=== PATIENT | female | born 1955 | race Caucasian/White ===

== ENCOUNTER 2018-10-16 11:48 | Emergency (ER) | payer MEDICAID, SELFPAY ==
--- NOTE | 2018-10-16 12:42 | ER ---
Nurse's Notes [facility] Name: Rhea Carballo Age: 63 yrs Sex: Female : 1955 Arrival Date: 10/16/2018 Time: 11:53 Bed 17 Private MD: None, None Diagnosis: Bronchiectasis, uncomplicated Presentation: 10/16 12:13 Presenting complaint: Patient states: cough and congestion that began 2.5 months ago. ss Pt states, " I just need an antibiotic or something to kick this.". Transition of care: patient was not received from another setting of care. Resp Distress? No respiratory distress is noted at this time. Onset of symptoms is unknown. Risk Assessment: Do you want to hurt yourself or someone else? Patient reports no desire to harm self or others. Initial Sepsis Screen: Does the patient meet any 2 criteria? No. Patient's initial sepsis screen is negative. Does the patient have a suspected source of infection?. Care prior to arrival: None. 12:13 Method Of Arrival: Ambulatory ss 12:13 Acuity: МАРИНА 4 Triage Assessment: 12:36 General: Appears in no apparent distress. comfortable, Behavior is cooperative, bp appropriate for age, anxious. Pain: Denies pain. Respiratory: Breath sounds are coarse bilaterally. Historical: - Allergies: 12:16 Iodine; ss - PMHx: 12:16 Depression; chronic back pain; ss - PSHx: 12:16 D \\T\\ C; ss - Immunization history:: Adult Immunizations up to date. - Social history:: Smoking status: Patient uses tobacco products, denies chronic smoking, but will smoke occasionally, Patient/guardian denies using alcohol, street drugs, The patient lives. - Ebola Screening: : Patient denies exposure to infectious person Patient denies travel to an Ebola-affected area in the 21 days before illness onset. - Family history:: not pertinent. Screenin:37 Abuse screen: Denies threats or abuse. Denies injuries from another. Nutritional bp screening: No deficits noted. Tuberculosis screening: No symptoms or risk factors identified. Fall Risk None identified. Assessment: 12:15 General: Appears in no apparent distress. comfortable, Behavior is cooperative, bp appropriate for age, anxious. Pain: Denies pain. Neuro: Level of Consciousness is awake, alert, obeys commands, Oriented to person, place, time, situation, Appropriate for age. Cardiovascular: Capillary refill < 3 seconds Patient's skin is warm and dry. Respiratory: Airway is patent Respiratory effort is even, unlabored, Respiratory pattern is regular, symmetrical. GI: No signs and/or symptoms were reported involving the gastrointestinal system. : No signs and/or symptoms were reported regarding the genitourinary system. EENT: No deficits noted. Derm: No deficits noted. Musculoskeletal: Circulation, motion, and sensation intact. Range of motion: intact in all extremities. 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 bp Vital Signs: 12:16 BP 176 / 111; Pulse 81; Resp 20; Temp 98.0(TE); Pulse Ox 97% on R/A; Weight 64.86 kg; ss Height 5 ft. 3 in. (160.02 cm); 13:00 BP 161 / 105; Pulse 79; Resp 14; Pulse Ox 98% ; bp 12:16 Body Mass Index 25.33 (64.86 kg, 160.02 cm) ED Course: 11:53 Patient arrived in ED. dl4 11:53 None, None is Private Physician. dl4 12:09 Emmett Weeks, RN is Primary Nurse. bp 12:11 Marcio Benedict MD is Attending Physician. ma2 12:15 Triage completed. ss 12:16 Arm band placed on right wrist. ss 12:37 Patient has correct armband on for positive identification. Bed in low position. Call bp light in reach. Side rails up X2. 13:21 No provider procedures requiring assistance completed. Patient did not have IV access bp during this emergency room visit. Administered Medications: No medications were administered Outcome: 12:41 Discharge ordered by . ma2 13:21 Discharged to home ambulatory, with friend. bp 13:21 Condition: stable 13:21 Discharge instructions given to patient, Instructed on discharge instructions, follow up and referral plans. medication usage, Demonstrated understanding of instructions, follow-up care, medications, Prescriptions given X 1. 13:21 Patient left the ED. bp Signatures: Cristina Prescott RN RN Emmett Weeks, MADISON WALLACE Marcio Benedict MD MD ma2 Luna, David dl4
--- NOTE | 2018-10-16 12:42 | EDPHYS ---
Physician Documentation [facility] Name: hRea Carballo Age: 63 yrs Sex: Female : 1955 Arrival Date: 10/16/2018 Time: 11:53 Bed 17 Private MD: None, None ED Physician Marcio Benedict HPI: 10/16 12:40 This 63 yrs old Female presents to ER via Ambulatory with complaints of ma2 Cough, Congestion. 12:40 The patient or guardian reports cough. Onset: The symptoms/episode began/occurred ma2 gradually, 1 week(s) ago. Severity of symptoms: At their worst the symptoms were moderate, in the emergency department the symptoms are unchanged. Associated signs and symptoms: Pertinent positives: sore throat, Pertinent negatives: chest pain, ear ache, fever, nausea. The patient has experienced similar episodes in the past. Historical: - Allergies: 12:16 Iodine; ss - PMHx: 12:16 Depression; chronic back pain; ss - PSHx: 12:16 D \T\ C; ss - Immunization history:: Adult Immunizations up to date. - Social history:: Smoking status: Patient uses tobacco products, denies chronic smoking, but will smoke occasionally, Patient/guardian denies using alcohol, street drugs, The patient lives. - Ebola Screening: : Patient denies exposure to infectious person Patient denies travel to an Ebola-affected area in the 21 days before illness onset. - Family history:: not pertinent. ROS: 12:40 Constitutional: Negative for fever, chills, and weight loss, Neck: Negative for injury, ma2 pain, and swelling, Cardiovascular: Negative for chest pain, palpitations, and edema. 12:40 ENT: Positive for sore throat, Negative for foreign body sensation, pulling at ears, tinnitus. 12:40 All other systems are negative. Exam: 12:40 Constitutional: This is a well developed, well nourished patient who is awake, alert, ma2 and in no acute distress. 12:40 Cardiovascular: Regular rate and rhythm with a normal S1 and S2. No gallops, murmurs, or rubs. Normal PMI, no JVD. No pulse deficits. Respiratory: Lungs have equal breath sounds bilaterally, clear to auscultation and percussion. No rales, rhonchi or wheezes noted. No increased work of breathing, no retractions or nasal flaring. Abdomen/GI: Soft, non-tender, with normal bowel sounds. No distension or tympany. No guarding or rebound. No evidence of tenderness throughout. Back: No spinal tenderness. No costovertebral tenderness. Full range of motion. MS/ Extremity: Pulses equal, no cyanosis. Neurovascular intact. Full, normal range of motion. Neuro: Awake and alert, GCS 15, oriented to person, place, time, and situation. Cranial nerves II-XII grossly intact. Motor strength 5/5 in all extremities. Sensory grossly intact. Cerebellar exam normal. Normal gait. 12:40 ENT: Posterior pharynx: Tonsils: are normal in appearance, swelling, is not appreciated, erythema, that is moderate. Vital Signs: 12:16 BP 176 / 111; Pulse 81; Resp 20; Temp 98.0(TE); Pulse Ox 97% on R/A; Weight 64.86 kg; ss Height 5 ft. 3 in. (160.02 cm); 13:00 BP 161 / 105; Pulse 79; Resp 14; Pulse Ox 98% ; bp 12:16 Body Mass Index 25.33 (64.86 kg, 160.02 cm) ss MDM: 12:12 Patient medically screened. ma2 12:40 Differential Diagnosis: Bronchitis Upper Respiratory Infection Sinusitis Pharyngitis. ma2 Data reviewed: vital signs, nurses notes. Counseling: I had a detailed discussion with the patient and/or guardian regarding: the historical points, exam findings, and any diagnostic results supporting the discharge/admit diagnosis, the presence of at least one elevated blood pressure reading (>120/80) during this emergency department visit, the need for outpatient follow up. Administered Medications: No medications were administered Disposition: 10/16/18 12:41 Discharged to Home. Impression: Bronchiectasis, uncomplicated. - Condition is Stable. - Discharge Instructions: Acute Bronchitis, Adult. - Prescriptions for Zithromax Z- Nikita 250 mg Oral Tablet - take 1 tablet by ORAL route as directed for 5 days Day 1 - take two (2) tablets one time. Day 2, 3, 4 , 5 take one (1) tablet once daily.; 6 tablet. - Medication Reconciliation Form, Thank You Letter, Antibiotic Education, Prescription Opioid Use form. - Follow up: Private Physician; When: Tomorrow; Reason: Continuance of care. Signatures: Cristina Prescott RN RN ss Emmett Weeks RN RN bp Marcio Benedict MD MD ma2 Corrections: (The following items were deleted from the chart) 13:21 12:41 10/16/2018 12:41 Discharged to Home. Impression: Bronchiectasis, uncomplicated. bp Condition is Stable. Forms are Medication Reconciliation Form, Thank You Letter, Antibiotic Education, Prescription Opioid Use. Follow up: Private Physician; When: Tomorrow; Reason: Continuance of care. ma2
[2018-10-16 13:44] VITALS: TEMP 98
[2018-10-16 13:47] VITALS: BP 161/105; O2SAT 98
== END 2018-10-16 13:21 | disposition home or self-care (01) ==
LOC: ER 11:48
DX: J47.9 Bronchiectasis, uncomplicated (principal); Z72.0 Tobacco use; Z91.048 Other nonmedicinal substance allergy status
CPT/HCPCS: 99282

== ENCOUNTER 2019-06-09 11:22 | Emergency (ER) | payer SELFPAY ==
[2019-06-09] MEDS ORDERED: NA CHLORIDE 0.9% 2,000 ML ONE (11:51)
--- NOTE | 2019-06-09 12:37 | RAD REPORT ---
EXAM DESCRIPTION: RAD - Chest Single View - 06/09/2019 11:54 am CLINICAL HISTORY: Transient alteration of awareness, shortness of breath COMPARISON: March 2013 TECHNIQUE: AP portable chest image was obtained 1149 hours . FINDINGS: Lungs are clear. Heart and vasculature are normal. No measurable pleural effusion and no p neumothorax. No acute bony abnormality seen. No acute aortic findings suspected. IMPRESSION: No acute cardiopulmonary process.
[2019-06-09 12:50] LABS: Absolute Lymphocytes (CBC) 0.9 K/uL (0.7-4.9); Basophils % 0.7 % (0-1.3); Lymphocytes % 11.3 % (15.3-44.8); RBC Red Blood Cell Count 2.59 M/uL (3.86-4.86)
--- NOTE | 2019-06-09 12:52 | RAD REPORT ---
EXAM DESCRIPTION: CT - Head Brain Wo Cont - 06/09/2019 12:45 pm CLINICAL HISTORY: Weakness, transient alteration awareness COMPARISON: None TECHNIQUE: Axial 5 mm thick images of the head were obtained without IV contrast. All CT scans are performed using dose optimization technique as appropriate and may include automated exposure control or mA/KV adjustment according to patient size. FINDINGS: No intracranial hemorrhage, mass, edema or shift of mid-line structures. No acute infarcti on changes seen. No abnormal extra-axial fluid collections. Atrophy and mild chronic ischemic changes are present. Ventricles are prominent but not clearly out of proportion to the amount of volume loss . Mastoid air cells and visualized portions of the paranasal sinuses are clear. No acute bony findings. IMPRESSION: No hemorrhage, acute infarction or other acute intracranial finding. Atrophy and chronic ischemic changes are present with borderline ventriculomegaly.
[2019-06-09 13:13] LABS: ALT/SGPT 17 U/L (12-78); AST/SGOT 24 U/L (15-37); Alkaline Phosphatase 63 U/L (45-117); BUN Blood Urea Nitrogen 46 mg/dL (7-18); Bicarbonate 20 mmol/L (21-32); Bilirubin Direct < 0.1 mg/dL (0-0.2); Bilirubin Total 0.1 mg/dL (0.2-1.0); CKMB Creatine Kinase MB 6.3 ng/mL (0.3-3.6); Creatine Phosphokinase 238 U/L (26-192); Glucose Level 80 mg/dL (74-106); Lipase 67 U/L (73-393); Potassium 4.4 mmol/L (3.5-5.1); Protein, Total 5.4 g/dL (6.4-8.2); Sodium Level 145 mmol/L (136-145); Troponin (Emerg Dept Use Only) < 0.02 ng/mL (0.0-0.045)
--- NOTE | 2019-06-09 13:14 | ER ---
Nurse's Notes [facility] Name: Rhea Carballo Age: 63 yrs Sex: Female : 1955 Arrival Date: 06/09/2019 Time: 11:33 Bed 3 Private MD: Diagnosis: Gastrointestinal hemorrhage, unspecified Presentation: 06/09 11:38 Presenting complaint: EMS states: PER EMS, SON CALLED FOR WEAKNESS. PT IS POOR bp HISTORIAN, NOT ANSWERING QUESTIONS. Transition of care: patient was not received from another setting of care. Onset of symptoms is unknown. Risk Assessment: Do you want to hurt yourself or someone else? Patient reports no desire to harm self or others. Initial Sepsis Screen: Does the patient meet any 2 criteria? No. Patient's initial sepsis screen is negative. Does the patient have a suspected source of infection? No. Patient's initial sepsis screen is negative. Care prior to arrival: IV initiated. 20 GA, in the left antecubital area. 11:38 Method Of Arrival: EMS: [facility] bp 11:38 Acuity: МАРИНА 2 la1 Triage Assessment: 11:41 General: Appears distressed, comfortable, obese, unkempt, Behavior is agitated, bp anxious. Pain: Unable to use pain scale. Does not appear to understand pain scale. EENT: No deficits noted. Neuro: Level of Consciousness is confused, lethargic, Oriented to person, place. Cardiovascular: No deficits noted. Respiratory: No deficits noted. GI: No signs and/or symptoms were reported involving the gastrointestinal system. : No signs and/or symptoms were reported regarding the genitourinary system. Derm: No deficits noted. Musculoskeletal: No deficits noted. Historical: - Allergies: 11:41 Iodine; bp - Home Meds: 11:41 Unable to obtain [Active]; bp - PMHx: 11:41 chronic back pain; Depression; bp - Immunization history:: Adult Immunizations unknown. - Social history:: Smoking status: unknown Patient/guardian denies using alcohol, street drugs, The patient lives with family. - Ebola Screening: : No symptoms or risks identified at this time. - Family history:: not pertinent. Screenin:43 Abuse screen: Denies threats or abuse. Denies injuries from another. Nutritional bp screening: No deficits noted. Tuberculosis screening: No symptoms or risk factors identified. Fall Risk None identified. Assessment: 11:43 General: SEE TRIAGE NOTE. bp 12:37 Reassessment: pt changed out of soiled clothes, diaper placed, linens changed, fluids iw infusing to left wrist, placed on Aubrey Hugger, rectal temp=96.7. 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 bp 12:59 Reassessment: PT RETURNED FROM CT. bp 13:46 Reassessment: REPORT TO KYLE WALLACE AT [facility], TRANSPORT PENDING. bp 13:55 Reassessment: TRANSFUSION CONSENT SIGNED AND WITNESSED. PRBC TRANSFUSION INITIATED. bp 14:20 Reassessment: [facility] FOR TRANSPORT. bp Vital Signs: 11:41 BP 90 / 51; Pulse 61; Resp 14; Pulse Ox 100% ; Weight 72.57 kg; bp 12:37 BP 80 / 53; Pulse 55; Resp 16 S; Temp 96.7(R); Pulse Ox 100% on R/A; iw 13:00 BP 71 / 43; Pulse 51; Resp 13; Pulse Ox 100% ; bp 14:00 BP 88 / 48; Pulse 59; Resp 13; Temp 96.9; Pulse Ox 100% ; bp ED Course: 11:33 Patient arrived in ED. la1 11:33 Marcio Benedict MD is Attending Physician. ma2 11:38 Emmett Weeks, MADISON is Primary Nurse. bp 11:40 Triage completed. bp 11:41 Arm band placed on. bp 11:43 Patient has correct armband on for positive identification. Bed in low position. Call bp light in reach. Side rails up X2. 11:43 Maintain EMS IV. Dressing intact. Good blood return noted. Site clean \T\ dry. Gauge \T\ bp site: 20 GAUGE LEFT AC. 12:13 Chest Single View XRAY In Process Unspecified. EDMS 12:30 Inserted saline lock: 22 gauge in left wrist, using aseptic technique. Blood collected. bp 12:34 Radiology exam delayed due to pt not ready at this time. kw1 12:45 CT completed. Patient tolerated procedure well. Patient moved back from CT. mw3 12:49 CT Head Brain wo Cont In Process Unspecified. EDMS 13:04 initiated a transfer with Barbi Streeter from [facility] transfer center. eb 13:15 connected [address] staff accountant Dr. Ruzi from [facility] with Dr. Benedict for patient eb transfer consultation. 13:25 administrative approval given by Barbi Streeter / patient has been accepted to [facility] 7 south 4 bed 2/ Dr. Ruiz has accepted the patient in transfer/ report to be called to [phone]. 14:33 No provider procedures requiring assistance completed. Patient transferred, IV remains bp in place. Administered Medications: 12:30 Drug: NS 0.9% (30 ml/kg) 30 ml/kg Route: IV; Rate: bolus; Site: left wrist; bp 14:34 Follow up: IV Status: Completed infusion; IV Intake: 2000ml bp 12:30 Drug: Rocephin 1 grams Route: IV; Rate: calculated rate; Site: left wrist; bp 13:25 Follow up: IV Status: Completed infusion; IV Intake: 50ml bp Point of Care Testing: Guaiac: 13:04 Stool Guaiac: Positive; Stool Hemoccult Control: Pass; bp Intake: 13:25 IV: 50ml; Total: 50ml. bp 14:34 IV: 2000ml; Total: 2050ml. bp Outcome: 13:12 ER care complete, transfer ordered by . terrell 14:33 Transferred by helicopter to [facility], Transfer form completed. bp 14:33 Condition: stable 14:33 Instructed on the need for transfer. 14:34 Patient left the ED. bp Signatures: Dispatcher [employer] EDMS Christiana Araiza RN RN iw Jay Singh RN RN la1 Emmett Weeks RN RN bp Shameka oNel kw1 Marcio Benedict MD MD ma2 Botello, Elizabeth eb Willis, Michelle mw3 Corrections: (The following items were deleted from the chart) 12:39 12:37 BP 80 / 53; Pulse 55bpm; Resp 16bpm; Spontaneous; Pulse Ox 100% RA; iw iw 13:38 11:38 Acuity: МАРИНА 3 bp la1
--- NOTE | 2019-06-09 13:15 | EDPHYS ---
Physician Documentation [facility] Name: Rhea Carballo Age: 63 yrs Sex: Female : 1955 Arrival Date: 06/09/2019 Time: 11:33 Bed 3 Private MD: ED Physician Marcio Benedict HPI: 06/09 13:07 This 63 yrs old Female presents to ER via EMS with complaints of MALAISE. ma2 13:07 Onset: The symptoms/episode began/occurred gradually, 1 week(s) ago. Severity of ma2 symptoms: At their worst the symptoms were mild in the emergency department the symptoms are unchanged. The patient has not experienced similar symptoms in the past. here with generalized weakness no other symptoms she has + hemoccult test here today, + melena no active bleeding anywhere else, she fitch not have bright red blood w stool. Historical: - Allergies: 11:41 Iodine; bp - Home Meds: 11:41 Unable to obtain [Active]; bp - PMHx: 11:41 chronic back pain; Depression; bp - Immunization history:: Adult Immunizations unknown. - Social history:: Smoking status: unknown Patient/guardian denies using alcohol, street drugs, The patient lives with family. - Ebola Screening: : No symptoms or risks identified at this time. - Family history:: not pertinent. ROS: 13:07 Constitutional: Negative for fever, chills, and weight loss. ma2 13:07 All other systems are negative. Exam: 13:07 Head/Face: Normocephalic, atraumatic. ENT: Nares patent. No nasal discharge, no ma2 septal abnormalities noted. Tympanic membranes are normal and external auditory canals are clear. Oropharynx with no redness, swelling, or masses, exudates, or evidence of obstruction, uvula midline. Mucous membranes moist. Chest/axilla: Normal chest wall appearance and motion. Nontender with no deformity. No lesions are appreciated. Cardiovascular: Regular rate and rhythm with a normal S1 and S2. No gallops, murmurs, or rubs. Normal PMI, no JVD. No pulse deficits. Respiratory: Lungs have equal breath sounds bilaterally, clear to auscultation and percussion. No rales, rhonchi or wheezes noted. No increased work of breathing, no retractions or nasal flaring. Abdomen/GI: Soft, non-tender, with normal bowel sounds. No distension or tympany. No guarding or rebound. No evidence of tenderness throughout. Back: No spinal tenderness. No costovertebral tenderness. Full range of motion. MS/ Extremity: Pulses equal, no cyanosis. Neurovascular intact. Full, normal range of motion. Neuro: Awake and alert, GCS 15, oriented to person, place, time, and situation. Cranial nerves II-XII grossly intact. Motor strength 5/5 in all extremities. Sensory grossly intact. Cerebellar exam normal. Normal gait. 13:07 Constitutional: The patient appears awake, pale. Vital Signs: 11:41 BP 90 / 51; Pulse 61; Resp 14; Pulse Ox 100% ; Weight 72.57 kg; bp 12:37 BP 80 / 53; Pulse 55; Resp 16 S; Temp 96.7(R); Pulse Ox 100% on R/A; iw 13:00 BP 71 / 43; Pulse 51; Resp 13; Pulse Ox 100% ; bp 14:00 BP 88 / 48; Pulse 59; Resp 13; Temp 96.9; Pulse Ox 100% ; bp MDM: 11:33 Patient medically screened. [facility] 13:07 Differential Diagnosis sepsis, flu, upper gi bleding vs lower gi bleed . Data reviewed: [facility] vital signs, nurses notes. Counseling: I had a detailed discussion with the patient and/or guardian regarding: the historical points, exam findings, and any diagnostic results supporting the discharge/admit diagnosis, the presence of at least one elevated blood pressure reading (>120/80) during this emergency department visit, the need for outpatient follow up. Counseling: I had a detailed discussion with the patient and/or guardian regarding: the need for outpatient follow up, the need to transfer to another facility. Response to treatment: the patient's symptoms have resolved after treatment. ED course: we have no gi, she needs gi for upper gi bleed . 06/09 11:37 Order name: Basic Metabolic Panel; Complete Time: 13:19 [facility] 06/09 11:37 Order name: Blood Culture Adult (2) [facility] 06/09 11:37 Order name: CBC with Diff; Complete Time: 13:19 [facility] 06/09 11:37 Order name: Ckmb; Complete Time: 13:19 06/09 11:37 Order name: CPK; Complete Time: 13:19 06/09 11:37 Order name: Lactate; Complete Time: 13:19 [facility]06/09 11:37 Order name: LFT's; Complete Time: 13:19 06/09 11:37 Order name: Lipase; Complete Time: 13:19 va06/09 11:37 Order name: Procalcitonin [facility] 06/09 11:37 Order name: Troponin (emerg Dept Use Only); Complete Time: 13:19 06/09 11:52 Order name: TSH 06/09 11:37 Order name: Chest Single View XRAY; Complete Time: 12:49 06/09 11:37 Order name: Accucheck; Complete Time: 12:41 06/09 11:37 Order name: Cardiac monitoring; Complete Time: 12:41 06/09 11:37 Order name: EKG - Nurse/Tech; Complete Time: 12:41 06/09 11:37 Order name: IV Saline Lock - Large Bore; Complete Time: 11:45 06/09 11:37 Order name: Labs collected and sent; Complete Time: 12:41 06/09 11:37 Order name: O2 Per Protocol; Complete Time: 11:44 06/09 11:37 Order name: O2 Sat Monitoring; Complete Time: 11:44 06/09 11:37 Order name: CT Head Brain wo Cont; Complete Time: 13:19 06/09 11:52 Order name: T4 Free [facility] 06/09 12:32 Order name: Type And Screen bp 06/09 13:03 Order name: Bb Add On eb 06/09 13:19 Order name: Packed RBC Leukored EDMS 06/09 13:20 Order name: Transfuse: 2 Units pRBC; Complete Time: 14:34 ma2 Administered Medications: 12:30 Drug: NS 0.9% (30 ml/kg) 30 ml/kg Route: IV; Rate: bolus; Site: left wrist; bp 14:34 Follow up: IV Status: Completed infusion; IV Intake: 2000ml bp 12:30 Drug: Rocephin 1 grams Route: IV; Rate: calculated rate; Site: left wrist; bp 13:25 Follow up: IV Status: Completed infusion; IV Intake: 50ml bp Point of Care Testing: Guaiac: 13:04 Stool Guaiac: Positive; Stool Hemoccult Control: Pass; bp Disposition: 06/09/19 13:12 Transfer ordered to [facility]. Diagnosis is Gastrointestinal hemorrhage, unspecified. - Reason for transfer: Higher level of care. - Accepting physician is KATARZYNA Resendez. - Condition is Critical. - Problem is new. - Symptoms are unchanged. Critical care time excluding procedures: 13:12 Critical care time: Bedside Care: 20 minutes, Consultation: 20 minutes, Family ma2 Intervention: 10 minutes. Total time: 50 minutes Signatures: Dispatcher [employer] EDEmmett Terrazas RN RN bp Alzahri, Mohammad, MD MD ma2 Corrections: (The following items were deleted from the chart) 13:19 13:12 06/09/2019 13:12 Transfer ordered to [facility]. Diagnosis is ma2 Gastrointestinal hemorrhage, unspecified. Reason for transfer: Higher level of care. Accepting physician is KATARZYNA Collins. Condition is Critical. Problem is new. Symptoms are unchanged. ma2 14:29 11:39 PROTIME (+INR)+COAG.LAB.BRZ ordered. [facility] EDMS 14:29 11:39 PTT, ACTIVATED+COAG.LAB.BRZ ordered. [facility] EDMS 14:34 13:19 06/09/2019 13:12 Transfer ordered to [facility]. Diagnosis is bp Gastrointestinal hemorrhage, unspecified. Reason for transfer: Higher level of care. Accepting physician is KATARZYNA Resendez. Condition is Critical. Problem is new. Symptoms are unchanged. ma2
[2019-06-09] MEDS ORDERED: NA CHLORIDE 0.9% 250 ML ONE (13:35)
[2019-06-09] MEDS ORDERED: ONDANSETRON 4 MG/2 ML VIAL ONE (14:19)
[2019-06-09 14:43] VITALS: O2SAT 100
[2019-06-09 14:47] VITALS: BP 88/48; TEMP 96.9
--- NOTE | 2019-06-10 13:39 | EKG ---
Test Date: 2019-06-09 Test Time: 12:31:15 Vascular Technologist Sonographer: MEASUREMENT RESULTS: Intervals: Rate: 58 RI: 116 QRSD: 86 QT: 474 QTc: 465 [place]: P: 43 RI: 116 QRS: 68 T: 59 INTERPRETIVE STATEMENTS: Sinus bradycardia Otherwise normal ECG Compared to ECG 07/27/2015 15:22:17 No significant changes Electronically Signed On 06-10-19 13:38:40 CDT by Eron Shepard
== END 2019-06-09 14:34 | disposition short-term general hospital (02) ==
LOC: ER 11:22
PROC: 30233N1 Transfusion of Nonautologous Red Blood Cells into Peripheral Vein, Percutaneous Approach (ICD-10-PCS; principal; 2019-06-09)
DX: K92.2 Gastrointestinal hemorrhage, unspecified (principal); Z91.048 Other nonmedicinal substance allergy status
CPT/HCPCS: 36415; 70450; 71045; 80048; 80076; 82550; 82553; 83605; 83690; 84145; 84439; 84443; 84484; 85025; 86850; 86900; 86901; 87040; 93005; 96365; 96366; 96368; 99285; J2405; J7030; P9016

== ENCOUNTER 2019-06-15 14:50 | Emergency (ER) | payer SELFPAY ==
[2019-06-15] MEDS ORDERED: PANTOPRAZOLE 40 MG INJ ONE (16:12)
[2019-06-15] MEDS ORDERED: NA CHLORIDE 0.9% 1,000 ML ONE (16:13)
--- NOTE | 2019-06-15 16:31 | EDPHYS ---
Physician Documentation [facility] Name: Rhea Carballo Age: 63 yrs Sex: Female : 1955 Arrival Date: 06/15/2019 Time: 14:57 Bed 26 Private MD: ED Physician Sarwat Foss HPI: 06/15 17:43 This 63 yrs old Female presents to ER via EMS with complaints of black stools brooke and weakness. 17:43 The patient presents with abdominal pain in the lower abdomen, abdominal distention in brooke the upper abdomen, in the lower abdomen. Onset: The symptoms/episode began/occurred 2 day(s) ago. The patient presents to the emergency department with rectal bleeding, a moderate amount, melena, with multiple such episodes. Onset: The symptoms/episode began/occurred just prior to arrival, this morning. Abdominal pain: located in the left upper quadrant and left lower quadrant. Modifying factors: The symptoms are alleviated by nothing, the symptoms are aggravated by nothing. Associated signs and symptoms: The patient has no apparent associated signs or symptoms. Associated signs and symptoms: none. Historical: - Allergies: 15:04 Iodine; mg2 - Home Meds: 15:04 levothyroxine oral [Active]; Folic Acid Oral [Active]; mg2 - PMHx: 15:04 chronic back pain; Depression; GI BLeed; Hypothyroidism; mg2 - PSHx: 15:04 None; mg2 - Immunization history:: Flu vaccine is not up to date. - Social history:: Smoking status: Patient uses tobacco products, denies chronic smoking, but will smoke occasionally, Patient/guardian denies using street drugs, IV drugs. - Ebola Screening: : No symptoms or risks identified at this time. - Family history:: not pertinent. ROS: 17:43 Constitutional: Negative for fever, chills, and weight loss, Eyes: Negative for injury, brooke pain, redness, and discharge, ENT: Negative for injury, pain, and discharge, Neck: Negative for injury, pain, and swelling, Cardiovascular: Negative for chest pain, palpitations, and edema, Respiratory: Negative for shortness of breath, cough, wheezing, and pleuritic chest pain, Back: Negative for injury and pain, : Negative for injury, bleeding, discharge, and swelling, MS/Extremity: Negative for injury and deformity, Skin: Negative for injury, rash, and discoloration, Neuro: Negative for headache, weakness, numbness, tingling, and seizure, Psych: Negative for depression, anxiety, suicide ideation, homicidal ideation, and hallucinations, Allergy/Immunology: Negative for hives, rash, and allergies, Endocrine: Negative for neck swelling, polydipsia, polyuria, polyphagia, and marked weight changes, Hematologic/Lymphatic: Negative for swollen nodes, abnormal bleeding, and unusual bruising. 17:43 Abdomen/GI: Positive for abdominal pain, of the left upper quadrant and left lower quadrant. Exam: 17:43 Constitutional: This is a well developed, well nourished patient who is awake, alert, brooke and in no acute distress. Head/Face: Normocephalic, atraumatic. Eyes: Pupils equal round and reactive to light, extra-ocular motions intact. Lids and lashes normal. Conjunctiva and sclera are non-icteric and not injected. Cornea within normal limits. Periorbital areas with no swelling, redness, or edema. ENT: Nares patent. No nasal discharge, no septal abnormalities noted. Tympanic membranes are normal and external auditory canals are clear. Oropharynx with no redness, swelling, or masses, exudates, or evidence of obstruction, uvula midline. Mucous membranes moist. Neck: Trachea midline, no thyromegaly or masses palpated, and no cervical lymphadenopathy. Supple, full range of motion without nuchal rigidity, or vertebral point tenderness. No Meningismus. Chest/axilla: Normal chest wall appearance and motion. Nontender with no deformity. No lesions are appreciated. Cardiovascular: Regular rate and rhythm with a normal S1 and S2. No gallops, murmurs, or rubs. Normal PMI, no JVD. No pulse deficits. Respiratory: Lungs have equal breath sounds bilaterally, clear to auscultation and percussion. No rales, rhonchi or wheezes noted. No increased work of breathing, no retractions or nasal flaring. Back: No spinal tenderness. No costovertebral tenderness. Full range of motion. Skin: Warm, dry with normal turgor. Normal color with no rashes, no lesions, and no evidence of cellulitis. MS/ Extremity: Pulses equal, no cyanosis. Neurovascular intact. Full, normal range of motion. Neuro: Awake and alert, GCS 15, oriented to person, place, time, and situation. Cranial nerves II-XII grossly intact. Motor strength 5/5 in all extremities. Sensory grossly intact. Cerebellar exam normal. Normal gait. Psych: Awake, alert, with orientation to person, place and time. Behavior, mood, and affect are within normal limits. 17:43 Abdomen/GI: Inspection: abdomen appears normal, Bowel sounds: normal, Palpation: mild abdominal tenderness, in the left upper quadrant and left lower quadrant, Rectal exam: rectal tone normal, Stool: guaiac positive, black, hemorrhoid(s), are not appreciated, mass, is not appreciated, swelling, is not appreciated, Liver: no appreciated palpable abnormalities, Hernia: not appreciated. Vital Signs: 15:02 BP 146 / 81; Pulse 73; Resp 18; Temp 99.4; Pulse Ox 100% on R/A; Weight 63.5 kg; Height mg2 5 ft. 7 in. (170.18 cm); Pain 0/10; 16:33 BP 140 / 72; Pulse 72; Resp 18; Pulse Ox 99% on R/A; mg2 17:38 BP 120 / 63; Pulse 72; Resp 18; Pulse Ox 99% on R/A; mg2 18:19 BP 131 / 76; Pulse 69; Resp 18; Pulse Ox 100% on R/A; mg2 19:46 BP 128 / 68; Pulse 63; Resp 14; Pulse Ox 100% ; ad1 15:02 Body Mass Index 21.93 (63.50 kg, 170.18 cm) mg2 MDM: 15:19 Patient medically screened. [facility] 17:45 Data reviewed: vital signs, nurses notes, lab test result(s), EKG, radiologic studies, [facility] plain films. 06/15 16:07 Order name: Basic Metabolic Panel; Complete Time: 17:42 [facility] 06/15 16:07 Order name: CBC with Diff [facility] 06/15 16:07 Order name: LFT's; Complete Time: 17:42 [facility] 06/15 16:07 Order name: Magnesium; Complete Time: 17:42 [facility] 06/15 16:07 Order name: NT PRO-BNP; Complete Time: 17:42 [facility] 06/15 16:07 Order name: PT-INR; Complete Time: 17:27 [facility] 06/15 16:07 Order name: Troponin (emerg Dept Use Only); Complete Time: 17:42 [facility] 06/15 16:07 Order name: XRAY Chest (1 view) [facility] 06/15 16:07 Order name: Lipase; Complete Time: 17:42 [facility] 06/15 16:07 Order name: Type And Screen [facility] 06/15 16:12 Order name: Bb Add On eb 06/15 18:01 Order name: CBC Smear Scan [facility] 06/15 16:07 Order name: EKG; Complete Time: 16:09 [facility] 06/15 16:07 Order name: Cardiac monitoring; Complete Time: 16:32 [facility] 06/15 16:07 Order name: EKG - Nurse/Tech; Complete Time: 16:33 [facility] 06/15 16:07 Order name: IV Saline Lock; Complete Time: 16:33 [facility] 06/15 16:07 Order name: Labs collected and sent; Complete Time: 16:33 [facility] 06/15 16:07 Order name: O2 Per Protocol; Complete Time: 16:33 [facility] 06/15 16:07 Order name: O2 Sat Monitoring; Complete Time: 16:33 [facility] 06/15 16:29 Order name: IV Saline Lock - Large Bore; Complete Time: 16:32 [facility] Administered Medications: 16:32 Drug: ProTONIX 80 mg Route: IVP; Site: right forearm; mg2 17:24 Follow up: Response: No adverse reaction mg2 16:32 Drug: ProTONIX 8 mg/hr Route: IV; Rate: 25 ml/hr; Site: right forearm; mg2 17:30 Follow up: IV Status: Infusion continued upon transfer; IV Intake: 250ml tr5 16:32 Drug: NS 0.9% 500 ml Route: IV; Rate: bolus; Site: right forearm; mg2 17:23 Follow up: IV Status: Completed infusion; IV Intake: 500ml mg2 17:00 Drug: NS 0.9% 1000 ml Route: IV; Rate: 125 ml/hr; Site: right antecubital; tr5 Disposition: 06/15/19 16:30 Transfer ordered to [facility]. Diagnosis are Gastrointestinal hemorrhage, unspecified - upper, Weakness, Anemia, unspecified. - Reason for transfer: Higher level of care. - Accepting physician is to [facility] tele. - Condition is Fair. - Problem is new. - Symptoms have improved. Signatures: Dispatcher [employer] [facility] Sarwat Foss MD MD cha DelToro, Anna, RN RN ad1 Dequan Santillan RN RN mg2 Kyle Yin, RN RN tr5 Corrections: (The following items were deleted from the chart) 16:31 16:30 06/15/2019 16:30 Transfer ordered to [facility]. Diagnosis is brooke Gastrointestinal hemorrhage, unspecified - upper. Reason for transfer: Higher level of care. Accepting physician is to [facility]. Condition is Fair. Problem is new. Symptoms have improved. brooke 16:50 16:31 06/15/2019 16:30 Transfer ordered to [facility]. Diagnosis is brooke Gastrointestinal hemorrhage, unspecified - upper; Weakness. Reason for transfer: Higher level of care. Accepting physician is to [facility]. Condition is Fair. Problem is new. Symptoms have improved. brooke 20:58 16:50 06/15/2019 16:30 Transfer ordered to [facility]. Diagnosis is ad1 Gastrointestinal hemorrhage, unspecified - upper; Weakness; Anemia, unspecified. Reason for transfer: Higher level of care. Accepting physician is to [facility]. Condition is Fair. Problem is new. Symptoms have improved. brooke
--- NOTE | 2019-06-15 16:31 | ER ---
Nurse's Notes [facility] Name: Rhea Carballo Age: 63 yrs Sex: Female : 1955 Arrival Date: 06/15/2019 Time: 14:57 Bed 26 Private MD: Diagnosis: Gastrointestinal hemorrhage, unspecified-upper;Weakness;Anemia, unspecified Presentation: 06/15 14:59 Presenting complaint: EMS states: she was here last Monday and was life flighted to [address] for GI bleed. now, complaining of constipation and black stool for several days. denies pain, just feeling of fullness. Transition of care: patient was not received from another setting of care. Onset of symptoms was May 2019. Risk Assessment: Do you want to hurt yourself or someone else? Patient reports no desire to harm self or others. Initial Sepsis Screen: Does the patient meet any 2 criteria? No. Patient's initial sepsis screen is negative. Does the patient have a suspected source of infection? No. Patient's initial sepsis screen is negative. Care prior to arrival: None. 14:59 Method Of Arrival: EMS: [place] [id number] 14:59 Acuity: МАРИНА 3 mg2 Historical: - Allergies: 15:04 Iodine; mg2 - Home Meds: 15:04 levothyroxine oral [Active]; Folic Acid Oral [Active]; mg2 - PMHx: 15:04 chronic back pain; Depression; GI BLeed; Hypothyroidism; mg2 - PSHx: 15:04 None; mg2 - Immunization history:: Flu vaccine is not up to date. - Social history:: Smoking status: Patient uses tobacco products, denies chronic smoking, but will smoke occasionally, Patient/guardian denies using street drugs, IV drugs. - Ebola Screening: : No symptoms or risks identified at this time. - Family history:: not pertinent. Screenin:45 Abuse screen: Denies threats or abuse. Nutritional screening: No deficits noted. tr5 Tuberculosis screening: No symptoms or risk factors identified. Fall Risk None identified. Assessment: 15:30 General: Appears uncomfortable, unkempt, Behavior is cooperative. Pain: Denies pain. tr5 Neuro: Level of Consciousness is awake, alert, obeys commands, Oriented to person, place. Cardiovascular: Heart tones present Capillary refill < 3 seconds Pulses are all present. Respiratory: Reports cough that is non-productive, Airway is patent Respiratory effort is even, unlabored, Respiratory pattern is regular, symmetrical. GI: Reports constipation, bloody stool. : No signs and/or symptoms were reported regarding the genitourinary system. EENT: No signs and/or symptoms were reported regarding the EENT system. Derm: Skin is intact, Skin is dry, Skin is normal, Skin temperature is warm. Musculoskeletal: Capillary refill < 3 seconds. 18:18 Reassessment: patient informed about the plan for transfer. she agreed. mg2 18:25 Reassessment: tried calling for report but she said i will call back in 15 mins. mg2 19:47 Reassessment: Patient appears in no apparent distress at this time. Patient laying in ad1 bed, eyes closed, even respirations. no apparent distress noted. Report just called to MADISON Davis to [facility]. Vital Signs: 15:02 BP 146 / 81; Pulse 73; Resp 18; Temp 99.4; Pulse Ox 100% on R/A; Weight 63.5 kg; Height mg2 5 ft. 7 in. (170.18 cm); Pain 0/10; 16:33 BP 140 / 72; Pulse 72; Resp 18; Pulse Ox 99% on R/A; mg2 17:38 BP 120 / 63; Pulse 72; Resp 18; Pulse Ox 99% on R/A; mg2 18:19 BP 131 / 76; Pulse 69; Resp 18; Pulse Ox 100% on R/A; mg2 19:46 BP 128 / 68; Pulse 63; Resp 14; Pulse Ox 100% ; ad1 15:02 Body Mass Index 21.93 (63.50 kg, 170.18 cm) mg2 ED Course: 14:57 Patient arrived in ED. mg2 15:02 Triage completed. mg2 15:05 Arm band placed on. mg2 15:19 Sarwat Foss MD is Attending Physician. brooke 15:45 Placed in gown. Bed in low position. Call light in reach. tr5 16:09 Kyle Yin, MADISON is Primary Nurse. tr5 16:23 XRAY Chest (1 view) In Process Unspecified. EDMS 16:[address] abstractor during rectal exam. Inserted saline lock: 20 gauge in right mg2 forearm, using aseptic technique. Blood collected. 16:44 EKG done, by ED staff, reviewed by Sarwat Foss MD. Patient maintains SpO2 saturation jp3 greater than 95% on room air. 16:[address] Foss with Haylie at the [facility]. eb 20:45 Patient transferred, IV remains in place. ad1 Administered Medications: 16:32 Drug: ProTONIX 80 mg Route: IVP; Site: right forearm; mg2 17:24 Follow up: Response: No adverse reaction mg2 16:32 Drug: ProTONIX 8 mg/hr Route: IV; Rate: 25 ml/hr; Site: right forearm; mg2 17:30 Follow up: IV Status: Infusion continued upon transfer; IV Intake: 250ml tr5 16:32 Drug: NS 0.9% 500 ml Route: IV; Rate: bolus; Site: right forearm; mg2 17:23 Follow up: IV Status: Completed infusion; IV Intake: 500ml mg2 17:00 Drug: NS 0.9% 1000 ml Route: IV; Rate: 125 ml/hr; Site: right antecubital; tr5 Intake: 17:23 IV: 500ml; Total: 500ml. mg2 17:30 IV: 250ml; Total: 750ml. tr5 Outcome: 16:30 ER care complete, transfer ordered by MD. cox 20:44 Transferred by ground EMS to [facility]. ad1 20:44 Condition: stable 20:44 Instructed on the need for transfer, Demonstrated understanding of instructions. 20:58 Patient left the ED. ad1 Signatures: Dispatcher [employer] EDMS Sarwat Foss MD MD cha DelToro, Anna RN RN ad1 Barbi Lang Michele, RN RN mg2 Johnny Herring jp3 Kyle Yin RN RN tr5
[2019-06-15 16:47] LABS: Protime INR 0.94
[2019-06-15 16:48] LABS: Absolute Lymphocytes (CBC) 1.8 K/uL (0.7-4.9); Basophils % 0.8 % (0-1.3); Hematocrit 24.4 % (36.0-45.0); Lymphocytes % 25.2 % (15.3-44.8); MPV 8.1 fL (7.6-11.3); RBC Red Blood Cell Count 2.86 M/uL (3.86-4.86)
[2019-06-15] MEDS ORDERED: PANTOPRAZOLE INJ 80 MG in NA CHLORIDE 0.9% 250 ML IV SCH (17:00)
[2019-06-15 17:39] LABS: ALT/SGPT 14 U/L (12-78); AST/SGOT 18 U/L (15-37); Albumin 3.1 g/dL (3.4-5.0); Alkaline Phosphatase 85 U/L (45-117); BUN Blood Urea Nitrogen 20 mg/dL (7-18); Bicarbonate 25 mmol/L (21-32); Bilirubin Direct < 0.1 mg/dL (0-0.2); Bilirubin Total 0.2 mg/dL (0.2-1.0); Glucose Level 85 mg/dL (74-106); Lipase 122 U/L (73-393); Magnesium 2.1 mg/dL (1.8-2.4); NT PRO-BNP 498 pg/mL (<125); Potassium 3.8 mmol/L (3.5-5.1); Protein, Total 5.9 g/dL (6.4-8.2); Sodium Level 145 mmol/L (136-145); Troponin (Emerg Dept Use Only) < 0.02 ng/mL (0.0-0.045)
[2019-06-15 18:00] LABS: Anisocytosis 2+; Blood Morphology Comment NOTED (NOT SEEN); Platelet Estimate ADEQ; Polychromasia 1+; Urine White Blood Cell Casts OK
--- NOTE | 2019-06-15 18:28 | RAD REPORT ---
EXAM DESCRIPTION: Stefani Single View06/15/2019 4:22 pm CLINICAL HISTORY: cough COMPARISON: June 09, 2019 FINDINGS: The lungs appear clear of acute infiltrate. The heart is normal size IMPRESSION: No acute abnormalities displayed
[2019-06-15 21:10] VITALS: TEMP 99.4
[2019-06-15 21:13] VITALS: O2SAT 100
[2019-06-15 21:15] VITALS: BP 128/68
--- NOTE | 2019-06-16 09:05 | EKG ---
Test Date: 2019-06-15 Test Time: 16:23:04 [place]indery Assistant: JESSIE MEASUREMENT RESULTS: Intervals: Rate: 65 VT: 140 QRSD: 90 QT: 426 QTc: 443 [place]: P: 73 VT: 140 QRS: 58 T: 43 INTERPRETIVE STATEMENTS: Normal sinus rhythm normal ECG Compared to ECG 06/09/2019 12:31:15 Sinus bradycardia no longer present Electronically Signed On 06-16-19 09:03:50 CDT by Eron Shepard
== END 2019-06-15 20:58 | disposition short-term general hospital (02) ==
LOC: ER 14:50
DX: D64.9 Anemia, unspecified (principal); R53.1 Weakness; E03.9 Hypothyroidism, unspecified; Z91.048 Other nonmedicinal substance allergy status; Z72.0 Tobacco use
CPT/HCPCS: 36415; 71045; 80048; 80076; 83690; 83735; 83880; 84484; 85025; 85610; 86850; 86900; 86901; 93005; 96365; 99285; C9113; J7030

== ENCOUNTER 2019-11-06 15:30 | Inpatient (IN) | payer SELFPAY ==
[2019-11-06] MEDS ORDERED: FENTANYL CITR 100 MCG/2 ML ONE (16:01)
--- NOTE | 2019-11-06 16:20 | RAD REPORT ---
EXAM DESCRIPTION: Stefani Single View11/06/2019 4:12 pm CLINICAL HISTORY: Abdominal pain COMPARISON: May 2019 FINDINGS: The lungs appear clear of acute infiltrate. The heart is normal size IMPRESSION: No acute abnormalities displayed
--- NOTE | 2019-11-06 16:50 | RAD REPORT ---
EXAM DESCRIPTION: CT - Head C Spine Cap Wo Con - 11/06/2019 4:19 pm TECHNIQUE: Computed axial tomography of the head and cervical spine was obtained. Coronal and sagitt al reconstruction was performed Computed axial tomography of the chest, abdomen and pelvis was obtained. Contrast was not requested. All CT scans are performed using dose optimization technique as appropriate and may include automated exposure control or mA/KV adjustment according to patient size. CLINICAL HISTORY: Head and neck ipain with chest and abdominal pain COMPARISON: CT head 2019 CT chest 2018 FINDINGS: An intracranial bleed is not seen. The ventricles are normal in caliber. An extra-axial fluid collection is not noted. . Mild to moderate ethmoid sinusitis A cervical fracture is not seen. No dislocation is noted. Mild anterior subluxation C3 on C4 and C4 o n C5. 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 No lung consolidation. A pleural effusion is not seen. A pericardial effusion is not present. No medi astinal or hilar lymphadenopathy seen The liver,spleen, pancreas, and adrenals appear grossly normal. Nonobstructing bilateral renal calculi. Peripheral small low-density renal structures. Mild to moderate anterior subluxation of L5 on S1 Diverticula stem from the colon without diverticulitis IMPRESSION: 1. No acute intracranial abnormality is seen. 2. A cervical fracture is not visualized. Spondylosis resulting in moderate foraminal stenosis. If pa tient continues have symptoms to suggest intracranial/spinal cord/spinal canal pathology then MRI wou ld be recommended 3. Nonobstructing bilateral renal calculi 4. Low-density renal structure is nonspecific without IV contrast may represent cysts. Pyelonephritis can also result in this appearance and should be correlated clinically. Followup renal ultrasound in 3 months recommended for re-evaluation
[2019-11-06 17:00] LABS: Protime INR 0.96
[2019-11-06 17:30] LABS: Absolute Lymphocytes (CBC) 1.5 K/uL (0.7-4.9); Hematocrit 36.2 % (36.0-45.0); Lymphocytes % 17.6 % (15.3-44.8); MPV 7.9 fL (7.6-11.3); RBC Red Blood Cell Count 4.64 M/uL (3.86-4.86)
[2019-11-06] MEDS ORDERED: LORazepam 2 MG/ML VIAL ONE (17:30)
[2019-11-06 17:33] LABS: ALT/SGPT 27 U/L (12-78); AST/SGOT 45 U/L (15-37); Albumin 3.5 g/dL (3.4-5.0); Alkaline Phosphatase 92 U/L (45-117); BUN Blood Urea Nitrogen 17 mg/dL (7-18); Bicarbonate 27 mmol/L (21-32); Bilirubin Direct < 0.1 mg/dL (0-0.2); Bilirubin Total 0.2 mg/dL (0.2-1.0); Glucose Level 80 mg/dL (74-106); Magnesium 2.2 mg/dL (1.8-2.4); NT PRO-BNP 177 pg/mL (<125); Protein, Total 6.9 g/dL (6.4-8.2); Sodium Level 142 mmol/L (136-145); Troponin (Emerg Dept Use Only) < 0.02 ng/mL (0.0-0.045)
[2019-11-06 17:35] LABS: Potassium 2.6 mmol/L (3.5-5.1)
--- NOTE | 2019-11-06 18:07 | ER ---
Nurse's Notes [facility] Name: Rhea Carballo Age: 64 yrs Sex: Female : 1955 Arrival Date: 11/06/2019 Time: 15:33 Bed 23 Private MD: Diagnosis: Upper abdominal pain, unspecified;Hypokalemia;Bradycardia, unspecified;Hypothyroidism, unspecified Presentation: 11/06 15:41 Presenting complaint: Patient states: abd pain X 2 weeks, feels like she needs to burp, iw last night she bent over the couch and felt a pop in her chest, feels like it's bruised, pt has hx of GI bleed but denies any abnormal bleeding today. Transition of care: patient was not received from another setting of care. Onset of symptoms was October 23, 2019. Risk Assessment: Do you want to hurt yourself or someone else? Patient reports no desire to harm self or others. Initial Sepsis Screen: Does the patient meet any 2 criteria? No. Patient's initial sepsis screen is negative. Does the patient have a suspected source of infection? No. Patient's initial sepsis screen is negative. Care prior to arrival: None. 15:41 Method Of Arrival: Wheelchair iw 15:41 Acuity: МАРИНА 3 iw Historical: - Allergies: 15:43 Iodine; iw - Home Meds: 15:43 levothyroxine oral once daily [Active]; iw 16:20 Folic Acid Oral [Active]; mg2 - PMHx: 15:43 chronic back pain; Depression; GI Bleed; Hypothyroidism; iw - PSHx: 15:43 None; iw - Immunization history:: Adult Immunizations not up to date. - Coronavirus screen:: The patient has NOT traveled to [place] in the past 14 days. Proceed with normal triage process as indicated. - Social history:: Smoking status: Patient reports the use of cigarette tobacco products, smokes one-half pack cigarettes per day. - Ebola Screening: : Patient negative for fever greater than or equal to 101.5 degrees Fahrenheit, and additional compatible Ebola Virus Disease symptoms Patient denies exposure to infectious person Patient denies travel to an Ebola-affected area in the 21 days before illness onset No symptoms or risks identified at this time. Screenin:18 Abuse screen: Denies threats or abuse. Denies injuries from another. Nutritional mg2 screening: No deficits noted. Tuberculosis screening: No symptoms or risk factors identified. Fall Risk IV access (20 points). Assessment: 16:00 General: Appears in no apparent distress. uncomfortable, Behavior is calm, cooperative. mg2 Pain: Complains of pain in left upper quadrant and right lateral anterior chest Pain does not radiate. Quality of pain is described as aching, Pain began gradually. Neuro: Level of Consciousness is awake, alert, obeys commands, Oriented to person, place, time, situation. Cardiovascular: Capillary refill < 3 seconds Patient's skin is warm and dry. Respiratory: Airway is patent Respiratory effort is even, unlabored, Respiratory pattern is regular, symmetrical. GI: Bowel sounds present X 4 quads. Abd is soft and non tender Reports upper abdominal pain, nausea. : No signs and/or symptoms were reported regarding the genitourinary system. EENT: No signs and/or symptoms were reported regarding the EENT system. Derm: Skin is intact, is healthy with good turgor, Skin is pink, warm \T\ dry. normal. Musculoskeletal: Circulation, motion, and sensation intact. Capillary refill < 3 seconds. 16:16 Reassessment: sent to ct scan via wheelchair. mg2 17:42 Reassessment: Patient appears in no apparent distress at this time. Patient and/or ca1 family updated on plan of care and expected duration. Pain level reassessed. Patient is alert, oriented x 3, equal unlabored respirations, skin warm/dry/pink. 20:10 Reassessment: patient woke up and potassium po was given prior to admission, informed mg2 that she is going to a room already. daughter was also phoned about the plan. Vital Signs: 15:43 BP 189 / 89; Pulse 56; Resp 18; Temp 98.2; Pulse Ox 100% on R/A; Weight 63.5 kg; Height iw 5 ft. 7 in. (170.18 cm); Pain 10/10; 16:58 BP 166 / 106; Pulse 50; Resp 18; Pulse Ox 100% on R/A; mg2 17:42 BP 176 / 77; Pulse 47; Resp 19 S; Pulse Ox 100% ; ca1 19:33 BP 163 / 104; Pulse 55; Resp 18; Pulse Ox 98% on R/A; mg2 15:43 Body Mass Index 21.93 (63.50 kg, 170.18 cm) ED Course: 15:33 Patient arrived in ED. mr 15:35 [facility] Ph[facility]C [facility] snw 15:35 Mino Morrison MD is Attending Physician. snw 15:42 Dequan Santillan, MADISON is Primary Nurse. mg2 15:43 Triage completed. iw 15:43 Arm band placed on. iw 15:58 Inserted saline lock: 20 gauge in right forearm, using aseptic technique. Blood mg2 collected. 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 mg2 16:19 Patient has correct armband on for positive identification. mg2 16:29 CT Traumagram (Head C Spine CAP wo con) In Process Unspecified. EDMS 18:05 Juno Booker MD is Hospitalizing Provider. snw 19:54 Patient admitted, IV remains in place. mg2 Administered Medications: 15:59 Drug: fentaNYL (PF) 25 mcg Route: IVP; Site: right forearm; mg2 19:32 Follow up: Response: No adverse reaction mg2 17:30 Drug: Ativan 2 mg Route: IVP; Site: right forearm; mg2 19:33 Follow up: Response: No adverse reaction mg2 18:33 Drug: Potassium Chloride 20 mEq Route: IV; Rate: calculated rate; Site: right forearm; mg2 20:08 Follow up: Response: No adverse reaction; IV Status: Completed infusion mg2 19:46 Drug: NS 0.9% with KCl 40 mEq/L 1000 ml Route: IV; Rate: 100 ml/hr; Site: right forearm;mg2 20:09 Follow up: Response: No adverse reaction; IV Status: Infusion continued upon admission mg2 20:02 Drug: Potassium Effervescent Tablet 50 mEq Route: PO; mg2 20:09 Follow up: Response: No adverse reaction mg2 Outcome: 18:05 Decision to Hospitalize by Provider. snw 19:54 Admitted to Tele accompanied by tech, via stretcher, room 412, with chart, Report mg2 called to MADISON Henderson 19:54 Condition: good 19:54 Instructed on the need for admit, Demonstrated understanding of instructions. 20:11 Patient left the ED. mg2 Signatures: Dispatcher [employer] EDMS Abeba Pham FNP-C [employer]Cs[facility] Jemal Ida bustillo Christiana Araiza RN RN Dequan Santillan, RN RN mg2 Mindy Diane, RN RN ca1 Corrections: (The following items were deleted from the chart) 15:44 15:43 BP 189 / 89; Pulse 56bpm; Resp 18bpm; Pulse Ox 100% RA; mg2 iw
--- NOTE | 2019-11-06 18:08 | EDPHYS ---
Physician Documentation [facility] Name: Rhea Carballo Age: 64 yrs Sex: Female : 1955 Arrival Date: 11/06/2019 Time: 15:33 Bed 23 Private MD: ED Physician Mino Morrison HPI: 11/06 15:59 This 64 yrs old Female presents to ER via Wheelchair with complaints of snw Abdominal Pain. 15:59 The patient presents with abdominal pain in the epigastric area. Onset: The snw symptoms/episode began/occurred suddenly. The symptoms do not radiate. Associated signs and symptoms: Pertinent positives: chest pain. Modifying factors: The symptoms are alleviated by supine position. Severity of pain: At its worst the pain was severe. The patient has experienced a previous episode. The patient has not recently seen a physician, the patient's primary care provider is Dr. Willson. Historical: - Allergies: 15:43 Iodine; iw - Home Meds: 15:43 levothyroxine oral once daily [Active]; iw 16:20 Folic Acid Oral [Active]; mg2 - PMHx: 15:43 chronic back pain; Depression; GI Bleed; Hypothyroidism; iw - PSHx: 15:43 None; iw - Immunization history:: Adult Immunizations not up to date. - Coronavirus screen:: The patient has NOT traveled to [place] in the past 14 days. Proceed with normal triage process as indicated. - Social history:: Smoking status: Patient reports the use of cigarette tobacco products, smokes one-half pack cigarettes per day. - Ebola Screening: : Patient negative for fever greater than or equal to 101.5 degrees Fahrenheit, and additional compatible Ebola Virus Disease symptoms Patient denies exposure to infectious person Patient denies travel to an Ebola-affected area in the 21 days before illness onset No symptoms or risks identified at this time. ROS: 15:57 Constitutional: Negative for fever, chills, and weight loss, Eyes: Negative for injury, snw pain, redness, and discharge, ENT: Negative for injury, pain, and discharge, Neck: Negative for injury, pain, and swelling, Cardiovascular: Negative for chest pain, palpitations, and edema, Abdomen/GI: Positive for abdominal pain, negative for nausea, vomiting, diarrhea, and constipation, hx of GIB with transfusion about a month ago Back: Negative for injury and pain, : Negative for injury, bleeding, discharge, and swelling, MS/Extremity: Negative for injury and deformity, Skin: Negative for injury, rash, and discoloration, Neuro: Negative for headache, weakness, numbness, tingling, and seizure, Psych: Negative for depression, anxiety, suicide ideation, homicidal ideation, and hallucinations. 15:57 Respiratory: Positive for pleurisy, pt states she leaned over the couch to try to get abd more comfortable and felt a pop in her chest, no c/o rib pain. Exam: 15:54 Head/Face: Normocephalic, atraumatic. Eyes: Pupils equal round and reactive to light, snw extra-ocular motions intact. Lids and lashes normal. Conjunctiva and sclera are non-icteric and not injected. Cornea within normal limits. Periorbital areas with no swelling, redness, or edema. ENT: Nares patent. No nasal discharge, no septal abnormalities noted. Tympanic membranes are normal and external auditory canals are clear. Oropharynx with no redness, swelling, or masses, exudates, or evidence of obstruction, uvula midline. Mucous membranes moist. Neck: Trachea midline, no thyromegaly or masses palpated, and no cervical lymphadenopathy. Supple, full range of motion without nuchal rigidity, or vertebral point tenderness. No Meningismus. Cardiovascular: Regular rate and rhythm with a normal S1 and S2. No gallops, murmurs, or rubs. Normal PMI, no JVD. No pulse deficits. Respiratory: Lungs have equal breath sounds bilaterally, clear to auscultation and percussion. No rales, rhonchi or wheezes noted. No increased work of breathing, no retractions or nasal flaring. Back: No spinal tenderness. No costovertebral tenderness. Full range of motion. MS/ Extremity: Pulses equal, no cyanosis. Neurovascular intact. Full, normal range of motion. Neuro: Awake and alert, GCS 15, oriented to person, place, time, and situation. Cranial nerves II-XII grossly intact. Motor strength 5/5 in all extremities. Sensory grossly intact. Cerebellar exam normal. Normal gait. 15:54 Constitutional: The patient appears awake, anxious, pale, restless. 15:54 Chest/axilla: Palpation: tenderness, that is moderate, of the right lateral anterior chest, that partially reproduces the patient's complaints. 15:54 Abdomen/GI: Inspection: abdomen appears normal, Bowel sounds: normal, Palpation: moderate abdominal tenderness, in the left upper quadrant. 15:54 Abdomen/GI: Rectal exam: rectal tone normal, Stool: normal, guaiac negative, hemorrhoid(s), are not appreciated, mass, is not appreciated, tenderness, is not appreciated, the exam is chaperoned by the nurse. 15:54 Skin: Appearance: Color: pale, Temperature: normal temperature, Moisture: normal moisture. 15:54 Psych: Behavior/mood is anxious, Affect is animated. Vital Signs: 15:43 BP 189 / 89; Pulse 56; Resp 18; Temp 98.2; Pulse Ox 100% on R/A; Weight 63.5 kg; Height iw 5 ft. 7 in. (170.18 cm); Pain 10/10; 16:58 BP 166 / 106; Pulse 50; Resp 18; Pulse Ox 100% on R/A; mg2 17:42 BP 176 / 77; Pulse 47; Resp 19 S; Pulse Ox 100% ; ca1 19:33 BP 163 / 104; Pulse 55; Resp 18; Pulse Ox 98% on R/A; mg2 15:43 Body Mass Index 21.93 (63.50 kg, 170.18 cm) iw MDM: 15:51 Patient medically screened. snw 18:03 Data reviewed: vital signs, nurses notes. Data interpreted: Pulse oximetry: on room air snw is 100 %. Interpretation: normal. Counseling: I had a detailed discussion with the patient and/or guardian regarding: the historical points, exam findings, and any diagnostic results supporting the discharge/admit diagnosis, the presence of at least one elevated blood pressure reading (>120/80) during this emergency department visit, lab results, radiology results, the need for further work-up and treatment in the hospital. Response to treatment: the patient's symptoms have markedly improved after treatment. Physician consultation: Juno Booker MD was called at 18:04, was contacted at 18:04, regarding admission, to the telemetry unit. 11/06 15:53 Order name: Basic Metabolic Panel; Complete Time: 18:39 snw 11/06 15:53 Order name: CBC with Diff snw 11/06 15:53 Order name: LFT's; Complete Time: 18:39 snw 11/06 15:53 Order name: Magnesium; Complete Time: 18:39 snw 11/06 15:53 Order name: NT PRO-BNP; Complete Time: 18:39 snw 11/06 15:53 Order name: PT-INR; Complete Time: 17:53 snw 11/06 15:53 Order name: Troponin (emerg Dept Use Only); Complete Time: 18:39 snw 11/06 15:53 Order name: TS; Complete Time: 18:03 snw 11/06 15:53 Order name: TSH; Complete Time: 18:39 snw 11/06 15:59 Order name: Lipase; Complete Time: 17:12 snw 11/06 15:59 Order name: [facility] 11/06 16:06 Order name: Occult Blood--Ancillary; Complete Time: 16:12 [facility] 11/06 18:34 Order name: T4 Free; Complete Time: 18:39 EDNM 11/06 18:34 Order name: Urinalysis EDNM 11/06 18:34 Order name: CBC with Automated Diff EDNM 11/06 18:34 Order name: CBC with Automated Diff EDNM 11/06 18:34 Order name: CKMB Creatine Kinase MB EDNM 11/06 18:34 Order name: CKMB Creatine Kinase MB EDNM 11/06 18:34 Order name: CKMB Creatine Kinase MB EDNM 11/06 18:34 Order name: CKMB Creatine Kinase MB EDNM 11/06 18:34 Order name: Comprehensive Metabolic Panel EDNM 11/06 18:34 Order name: Comprehensive Metabolic Panel EDNM 11/06 18:35 Order name: Creatine Phosphokinase EDNM 11/06 18:35 Order name: Creatine Phosphokinase EDNM 11/06 18:35 Order name: Creatine Phosphokinase EDNM 11/06 18:35 Order name: Creatine Phosphokinase EDNM 11/06 18:35 Order name: Lipid Profile EDNM 11/06 18:35 Order name: Lipid Profile EDNM 11/06 18:35 Order name: Magnesium EDNM 11/06 18:35 Order name: Magnesium EDNM 11/06 15:53 Order name: XRAY Chest (1 view) [facility] 11/06 15:53 Order name: EKG; Complete Time: 15:55 sn 11/06 15:53 Order name: Cardiac monitoring; Complete Time: 15:59 snw 11/06 15:53 Order name: EKG - Nurse/Tech; Complete Time: 16:00 snw 11/06 15:53 Order name: IV Saline Lock; Complete Time: 16:00 snw 11/06 15:53 Order name: Labs collected and sent; Complete Time: 16:58 snw 11/06 15:53 Order name: O2 Per Protocol; Complete Time: 16:00 snw 11/06 15:53 Order name: O2 Sat Monitoring; Complete Time: 16:00 snw 11/06 15:53 Order name: CT Traumagram (Head C Spine CAP wo con); Complete Time: 17:12 snw 11/06 17:09 Order name: RAD; Complete Time: 17:12 EDNM 11/06 18:34 Order name: Heart Healthy [facility] 11/06 18:35 Order name: Phosphorus [facility] 11/06 18:35 Order name: Phosphorus [facility] 11/06 18:35 Order name: Troponin I [facility] 11/06 18:35 Order name: Troponin I [facility] 11/06 18:35 Order name: Troponin I [facility] 11/06 18:35 Order name: Troponin I [facility] 11/06 18:35 Order name: Urine Drug Screen EDMS Administered Medications: 15:59 Drug: fentaNYL (PF) 25 mcg Route: IVP; Site: right forearm; mg2 19:32 Follow up: Response: No adverse reaction mg2 17:30 Drug: Ativan 2 mg Route: IVP; Site: right forearm; mg2 19:33 Follow up: Response: No adverse reaction mg2 18:33 Drug: Potassium Chloride 20 mEq Route: IV; Rate: calculated rate; Site: right forearm; mg2 20:08 Follow up: Response: No adverse reaction; IV Status: Completed infusion mg2 19:46 Drug: NS 0.9% with KCl 40 mEq/L 1000 ml Route: IV; Rate: 100 ml/hr; Site: right forearm;mg2 20:09 Follow up: Response: No adverse reaction; IV Status: Infusion continued upon admission mg2 20:02 Drug: Potassium Effervescent Tablet 50 mEq Route: PO; mg2 20:09 Follow up: Response: No adverse reaction mg2 Disposition: 11/06/19 18:05 Hospitalization ordered by Juno Booker for Inpatient Admission. Preliminary diagnosis are Upper abdominal pain, unspecified, Hypokalemia, Bradycardia, unspecified, Hypothyroidism, unspecified. - Bed requested for Telemetry/MedSurg (Inpatient). - Status is Inpatient Admission. mg2 - Condition is Stable. - Problem is an acute exacerbation. - Symptoms are unchanged. Addendum: 11/09/2019 07:13 Co-signature as Attending Physician, Mino Morrison MD. r n Signatures: Dispatcher [employer] EDMS Anastasiia Trevizo bd Vero, Abeba, [employer]C [employer]-Csnw Christiana Araiza RN RN iw Nieto, Roman, MD MD rn GardDequan bradley RN RN mg2 Corrections: (The following items were deleted from the chart) 11/06 18:40 18:05 Hospitalization Ordered by Juno Booker MD for Inpatient Admission. Preliminary sn diagnosis is Upper abdominal pain, unspecified; Hypokalemia; Bradycardia, unspecified. Bed requested for Telemetry/MedSurg (Inpatient). Status is Inpatient Admission. Condition is Stable. Problem is an acute exacerbation. Symptoms are unchanged. [facility] 18:48 18:40 11/06/2019 18:05 Hospitalization Ordered by Juno Booker MD for Inpatient bd Admission. Preliminary diagnosis is Upper abdominal pain, unspecified; Hypokalemia; Bradycardia, unspecified; Hypothyroidism, unspecified. Bed requested for Telemetry/MedSurg (Inpatient). Status is Inpatient Admission. Condition is Stable. Problem is an acute exacerbation. Symptoms are unchanged. [facility] 20:11 18:48 11/06/2019 18:05 Hospitalization Ordered by Juno Booker MD for Inpatient mg2 Admission. Preliminary diagnosis is Upper abdominal pain, unspecified; Hypokalemia; Bradycardia, unspecified; Hypothyroidism, unspecified. Bed requested for Telemetry/MedSurg (Inpatient). Status is Inpatient Admission. Condition is Stable. Problem is an acute exacerbation. Symptoms are unchanged. bd
[2019-11-06] MEDS ORDERED: NA CHLORIDE 0.9% 250 ML ONE (18:20)
[2019-11-06] MEDS ORDERED: POTASSIUM 25 MEQ EFFERV TAB ONE (18:20)
[2019-11-06] MEDS ORDERED: KCL 20 MEQ/100 mL IVPB 20 MEQ/100 ML BAG IV ONE (18:20)
[2019-11-06] MEDS ORDERED: ALBUTEROL 2.5 MG/3 ML NEB SOL NEB PRN ×2 (18:23→19:00)
[2019-11-06] MEDS ORDERED: ONDANSETRON 4 MG/2 ML VIAL IV PRN (18:23)
[2019-11-06] MEDS ORDERED: ACETAMINOPHEN 500 MG TAB PO PRN (18:23)
[2019-11-06] MEDS ORDERED: HYDROCODONE/APAP 10/325 TAB PO PRN (18:28)
--- NOTE | 2019-11-06 18:34 | P.HP ---
Certification for Inpatient Patient admitted to: Observation With expected LOS: <2 Midnights Patient will require the following post-hospital care: None Practitioner: I am a practitioner with admitting privileges, knowledge of patient current condition, hospital course, and medical plan of care. Services: Services provided to patient in accordance with Admission requirements found in Title 42 Section 412.3 of the Code of Federal Regulations Patient History Date of Service: 11/06/19 Reason for admission: Hypokalemia History of Present Illness: 64 year old female who for came to ER with chest discomfort and abdominal pain and anxiety. at the time of interview of patient has been given Ativan and patient is sleepy and cold not answers any questions. Hence most of the history is obtained from chart review and also talking to the ER physician and the nurse at the bedside. as well some the patient started having abdominal epigastric discomfort all of a sudden and heard a pop while she bent down. Patient was assessed in the ER and workup was consistent with hypokalemia and was admitted for further monitoring and management. Patient could not answer any of my questions Allergies iodine Allergy (Unknown, Verified 04/12/13 19:49) UNKNOWN NKDA Allergy (Uncoded 07/27/15 19:25) Unknown Home medications list reviewed: Yes Home Medications: Escitalopram [Lexapro*] 20 mg PO BID 04/12/13 Levothyroxine [Synthroid*] 50 mcg PO KURDI3UM 04/12/13 Amphet Asp/Amphet/D-Amphet [Adderall 30 mg Tablet] 30 mg PO BID 04/13/13 Buspirone HCl 30 mg PO BID 04/13/13 Hydrocodone 10/APAP 325 [[place] 10/325*] 1 tab PO Q6HP PRN #30 tab 04/14/13 - Past Medical/Surgical History Diabetic: No Past Medical History: Reviewed- Non-Contributory -: depression -: anxiety -: hypothyroidism -: stomach ulcer Past Surgical History: Reviewed- Non-Contributory - Family History Family History: Reviewed- Non-Contributory - Social History Smoking Status: Unknown if ever smoked Alcohol use: No CD- Drugs: No Caffeine use: Yes Review of Systems is unable to be obtained Physical Examination - Vital Signs Temperature: 98.2 F Blood Pressure: 176/92 Pulse: 45 Respirations: 20 Pulse Ox (%): 94 - Physical Exam General: In no apparent distress, Other (Drowsy ,) HEENT: Atraumatic, Normocephalic Neck: Supple Respiratory: Clear to auscultation bilaterally, Normal air movement Cardiovascular: Other (bradycardia ) Capillary refill: <2 Seconds Gastrointestinal: Soft and benign, W/out hepatosplenomegaly Musculoskeletal: No clubbing Integumentary: No rashes Neurological: Other (Drowsy ) Urinary: Other (No bladder distention) External genitalia: Deferred Rectal: Deferred - Studies Laboratory Data (last 24 hrs) 11/06/19 16:45: Lipase 79 11/06/19 16:45: PT 11.3, INR 0.96 11/06/19 16:45: WBC 8.5, Hgb 11.7 L, Hct 36.2, Plt Count 313 11/06/19 16:45: Sodium 142, Potassium 2.6 L*, BUN 17, Creatinine 1.43 H, Glucose 80, Magnesium 2.2, Total Bilirubin 0.2, AST 45 H, ALT 27, Alkaline Phosphatase 92 Microbiology Data (last 24 hrs): 11/06/19 15:59 Stool Occult Blood - Final Assessment and Plan - Problems (Diagnosis) (1) Hypokalemia Current Visit: Yes Status: Acute (2) Abdominal pain Current Visit: Yes Status: Acute (3) Bradycardia Current Visit: Yes Status: Acute (4) Dehydration Current Visit: Yes Status: Acute (5) Acute renal insufficiency Current Visit: Yes Status: Acute (6) Anxiety Current Visit: Yes Status: Acute Plan: Hypokalemia Abdominal pain Chest discomfort Bradycardia Acute renal insufficiency Dehydration Anxiety History of depression History of hypothyroidism Plan Monitor under telemetry Replace potassium Electrolyte replacement protocol Trend cardiac enzymes Start on aspirin and statin will get a UDS Continue home medications Add on Protonix IV Monitor renal parameters IV fluids GI/DVT prophylaxis Discharge Plan: Home - Advance Directives Does patient have a Living Will: No Does patient have a Durable POA for Healthcare: No Time Spent Managing Pts Care (In Minutes): 42
[2019-11-06] MEDS ORDERED: SODIUM CHLORIDE 0.9% 10ML INJ IV PRN (18:39)
[2019-11-06] MEDS ORDERED: NA CHLORIDE 0.9% 1,000 ML with POTASSIUM CL 40 MEQ IV SCH ×2 (19:00)
[2019-11-06] MEDS: KCL 10 MEQ/100 ML IVPB 10 MEQ/100 ML BAG IV SCH ×2 (19:00→20:00)
[2019-11-06] MEDS: POTASSIUM CL IV SCH ×2 (20:42→22:22)
[2019-11-06] MEDS: WATER FOR INJ STERILE IV SCH ×2 (20:42→22:22)
[2019-11-06] MEDS: AMPHET ASP PO SCH (21:00)
[2019-11-06] MEDS: ATORVASTATIN 40 MG TAB PO SCH (21:00)
[2019-11-06] MEDS: ESCITALOPRAM 20 MG TAB PO SCH (21:00)
[2019-11-06] MEDS: D AMPHET PO SCH (21:00)
[2019-11-06] MEDS ORDERED: BUSPIRONE HCL 30 MG PO SCH (21:00)
[2019-11-06] MEDS: BUSPIRONE HCL 15 MG TABLET PO SCH (21:00)
[2019-11-06] MEDS: PANTOPRAZOLE 40 MG INJ IVP SCH (21:00)
[2019-11-06] MEDS: AMPHET PO SCH (21:00)
[2019-11-06 22:39] LABS: Anisocytosis 1+; Blood Morphology Comment NOTED (NOT SEEN); Platelet Estimate ADEQ; Urine White Blood Cell Casts OK
[2019-11-06] MEDS: D5.45NS W/KCL 20MEQ 1,000 ML IV SCH (23:22)
[2019-11-07 00:53] VITALS: BMI 25.0
[2019-11-07 01:26] LABS: Creatine Phosphokinase 422 U/L (26-192); Troponin I < 0.02 ng/mL (0.0-0.045)
[2019-11-07 01:28] LABS: CKMB Creatine Kinase MB 13.5 ng/mL (0.3-3.6)
[2019-11-07 02:43] LABS: Urine Appearance CLEAR; Urine Bilirubin NEGATIVE (NEG); Urine Blood NEGATIVE (NEG); Urine Color YELLOW; Urine Glucose NEGATIVE (NEG); Urine Protein NEGATIVE (NEG); Urine Urobilinogen 0.2 mg/dL (0.2-1.0)
[2019-11-07 02:46] LABS: Urine Microscopic Reflex NO UMIC
[2019-11-07 03:29] LABS: Barbiturates NEGATIVE (NEGATIVE); Benzodiazepines NEGATIVE (NEGATIVE); Cocaine NEGATIVE (NEGATIVE); METHAMPHETAM POSITIVE (NEGATIVE); Methadone NEGATIVE (NEGATIVE); Opiates NEGATIVE (NEGATIVE); Phencyclidine NEGATIVE (NEGATIVE); THC Cannibis NEGATIVE (NEGATIVE)
[2019-11-07 04:59] LABS: Absolute Lymphocytes (CBC) 1.5 K/uL (0.7-4.9); Basophils % 0.6 % (0-1.3); Hematocrit 36.7 % (36.0-45.0); Lymphocytes % 21.5 % (15.3-44.8); MPV 7.6 fL (7.6-11.3); RBC Red Blood Cell Count 4.72 M/uL (3.86-4.86)
[2019-11-07] MEDS: D5.45NS W/KCL 20MEQ 1,000 ML IV SCH ×2 (05:00→20:52)
[2019-11-07 05:10] LABS: Albumin 3.3 g/dL (3.4-5.0); Bilirubin Total 0.3 mg/dL (0.2-1.0); Magnesium 2.1 mg/dL (1.8-2.4); Phosphorus 2.6 mg/dL (2.5-4.9); Potassium 3.5 mmol/L (3.5-5.1); Protein, Total 6.2 g/dL (6.4-8.2)
[2019-11-07] MEDS ORDERED: POTASSIUM 25 MEQ EFFERV TAB PO ONE (05:46)
[2019-11-07] MEDS ORDERED: LEVOTHYROXINE SOD 0.05 MG TABLET PO SCH (06:00)
--- NOTE | 2019-11-07 07:20 | EKG ---
Test Date: 2019-11-06 Test Time: 16:03:24 Rn Enterostomal: ADRIAN MEASUREMENT RESULTS: Intervals: Rate: 45 DE: 124 QRSD: 100 QT: 514 QTc: 444 [place]: P: 47 DE: 124 QRS: 62 T: 119 INTERPRETIVE STATEMENTS: Marked sinus bradycardia ST & T wave abnormality, consider inferior ischemia Abnormal ECG Compared to ECG 06/15/2019 16:23:04 ST (T wave) deviation now present Possible ischemia now present Sinus rhythm no longer present Electronically Signed On 11-07-19 07:19:18 [employer] by Len Tobar
[2019-11-07] MEDS: AMPHET ASP PO SCH ×2 (09:00→21:00)
[2019-11-07] MEDS: ESCITALOPRAM 20 MG TAB PO SCH ×2 (09:00→21:00)
[2019-11-07] MEDS: ASPIRIN EC 81 MG TAB PO SCH (09:00)
[2019-11-07] MEDS: PANTOPRAZOLE 40 MG INJ IVP SCH ×2 (09:00→21:00)
[2019-11-07] MEDS: BUSPIRONE HCL 15 MG TABLET PO SCH ×2 (09:00→21:00)
[2019-11-07] MEDS: AMPHET PO SCH ×2 (09:00→21:00)
[2019-11-07] MEDS ORDERED: POTASSIUM CL SA 10 MEQ TAB PO ONE (09:00)
[2019-11-07] MEDS: D AMPHET PO SCH ×2 (09:00→21:00)
[2019-11-07 09:14] LABS: CKMB Creatine Kinase MB 9.7 ng/mL (0.3-3.6); Creatine Phosphokinase 325 U/L (26-192); Troponin I < 0.02 ng/mL (0.0-0.045)
--- NOTE | 2019-11-07 09:50 | P.PN ---
Subjective Date of Service: 11/07/19 Chief Complaint: Hypokalemia Subjective: No new changes Review of Systems 10-point ROS is otherwise unremarkable Physical Examination - Vital Signs Temperature: 97.6 F Blood Pressure: 154/76 Pulse: 53 Respirations: 16 Pulse Ox (%): 95 - Physical Exam General: Alert, In no apparent distress HEENT: Atraumatic, Normocephalic Neck: Supple Respiratory: Clear to auscultation bilaterally, Normal air movement Cardiovascular: Normal pulses, Regular rate/rhythm Capillary refill: <2 Seconds Gastrointestinal: Soft and benign, W/out hepatosplenomegaly Musculoskeletal: No clubbing, No swelling Integumentary: No rashes Neurological: Normal strength at 5/5 x4 extr Lymphatics: No axilla or inguinal lymphadenopathy External genitalia: Deferred Rectal: Deferred - Studies Laboratory Data (last 24 hrs) 11/06/19 16:45: Lipase 79 11/06/19 16:45: PT 11.3, INR 0.96 11/06/19 16:45: WBC 8.5, Hgb 11.7 L, Hct 36.2, Plt Count 313 11/06/19 16:45: Sodium 142, Potassium 2.6 L*, BUN 17, Creatinine 1.43 H, Glucose 80, Magnesium 2.2, Total Bilirubin 0.2, AST 45 H, ALT 27, Alkaline Phosphatase 92 Microbiology Data (last 24 hrs): 11/06/19 15:59 Stool Occult Blood - Final Assessment & Plan - Problems (Diagnosis) (1) Hypokalemia Current Visit: Yes Status: Acute (2) Abdominal pain Current Visit: Yes Status: Acute (3) Bradycardia Current Visit: Yes Status: Acute (4) Dehydration Current Visit: Yes Status: Acute (5) Acute renal insufficiency Current Visit: Yes Status: Acute (6) Anxiety Current Visit: Yes Status: Acute Plan: Hypokalemia Abdominal pain Chest discomfort Bradycardia Acute renal insufficiency Dehydration Anxiety History of depression History of hypothyroidism Plan Monitor under telemetry Replace potassium Electrolyte replacement protocol Trend cardiac enzymes Start on aspirin and statin will get a UDS Continue home medications Add on Protonix IV Monitor renal parameters IV fluids GI/DVT prophylaxis 11/07/2019 The TSH level is greatly elevated Given those IV synthroid increased the dose from 0.05 to 1 Monitored in the telemetry UDS screen monitor Appreciate help from cardiology Echocardiogram She additionally has delusions Psyc help appreciated Start on risperidone Will monitor closely Time Spent Managing Pts Care (In Minutes): 42
--- NOTE | 2019-11-07 12:20 | ECHO ---
HEIGHT: 5 ft 7 in WEIGHT: 160 lb 0 oz DATE OF STUDY: 11/07/[address]: Len Tobar MD 2-DIMENSIONAL: YES M.MODE: YES DOPPLER: YES COLOR FLOW: YES TDS: NO PORTABLE: NO DEFINITY: NO BUBBLE STUDY: NO DIAGNOSIS: ABNORMAL CARDIAC ENZYMES CARDIAC HISTORY: CATHERIZATION: NO SURGERY: NO PROSTHETIC VALVE: NO PACEMAKER: NO MEASUREMENTS (cm) DIASTOLIC (NORMALS) SYSTOLIC (NORMALS) IVSd 0.9 (0.6-1.2) LA Diam 3.2 (1.9-4.0) LVEF 74% LVIDd 3.7 (3.5-5.7) LVIDs 2.1 (2.0-3.5) %FS 42% LVPWd 1.1 (0.6-1.2) Ao Diam 2.5 (2.0-3.7) 2 DIMENSIONAL ASSESSMENT: RIGHT ATRIUM: NORMAL LEFT ATRIUM: NORMAL RIGHT VENTRICLE: NORMAL LEFT VENTRICLE: NORMAL TRICUSPID VALVE: NORMAL MITRAL VALVE: MITRAL ANNULAR CALCIFICATION PULMONIC VALVE: NORMAL AORTIC VALVE: SCLEROSIS PERICARDIAL EFFUSION: NONE AORTIC ROOT: NORMAL LEFT VENTRICULAR WALL MOTION: NORMAL. DOPPLER/COLOR FLOW: MILD TRICUSPID REGURGITATION. COMMENTS: NORMAL LEFT VENTRICULAR SIZE AND FUNCTION. MILD TRICUSPID REGURGITATION NORMAL RIGHT VENTRICULAR SYSTOLIC PRESSURE. MITRAL ANNULAR CALCIFICATION. AORTIC SCLEROSIS TECHNOLOGIST: IZZY HOLBROOK
--- NOTE | 2019-11-07 13:03 | CON ---
Date of Consultation: 11/07/[address] Booker on 11/06/2019, I saw the patient on 11/07/2019. Reason For Consultation: Abnormal CPKs and MBs. History Of Present Illness: Ms. Carballo is 64, came into the hospital with abdominal pain, severe h ypokalemia with a potassium 2.6. Her creatinine was 1.43. She was bradycardic at 45, hypertensive a t 176/92. Had some nausea. No vomiting. Denied PND, orthopnea, pedal edema, palpitations, or synco pe. Denied any chest pain. Does not have any previous cardiac history. Allergies: IODINE. Past Medical History: Hypothyroidism, history of GI bleed, depression, and chronic back pain. Medications: At home, include Adderall, buspirone, Lexapro, [place], and Synthroid. Social History: Unremarkable. Review of Systems: Negative. Family History: Negative. Physical Examination: Vital Signs: Last blood pressure was 154/76, heart rate of 53, sinus bradycardia. HEENT: Negative. Neck: Supple with no bruit. Chest: Clear. Cardiac: Exam is normal. Abdomen: Benign. Extremities: Revealed no clubbing, cyanosis, or edema. Diagnostic Data: Her last creatinine is 1.19. Last potassium 3.5 after supplementation. Her BNP is negative. Her troponin is negative. Her CPK was 422 with an MB of 13.5. Her TSH was 169. EKG carmen ws sinus bradycardia with possible LVH versus ischemia. Chest x-ray is negative. Impression And Plan: Elevated CPK and MB with negative troponin. This is probably secondary to hypo kalemia. This is not consistent with acute coronary syndrome. I would like to get an echocardiogram to rule out any cardiomyopathy. Certainly, her enzymes could also be abnormal because of severely e levated TSH of 169. She has severe hypothyroidism. She is on Synthroid 0.05 mg, but may need a high er dose. I will discuss the case further with Dr. Booker. Her bradycardia may be chronic. She has r enal insufficiency, may be secondary to dehydration. She has depression, chronic back pain and histo ry of GI bleed and I will continue her present regimen including the Protonix which she is getting IV . We will see what the echocardiogram shows prior to making any final decisions. Patient is allergi c to iodine. We will have to keep that in mind in case we have to be more invasive with her. WALDEMAR/PAYAM Voice ID: [id number] Report ID: [id number]
[2019-11-07] MEDS: LEVOTHYROXINE SODIUM 100 MCG VIAL IV SCH (16:00)
[2019-11-07 17:18] LABS: CKMB Creatine Kinase MB 8.4 ng/mL (0.3-3.6); Creatine Phosphokinase 285 U/L (26-192); Troponin I < 0.02 ng/mL (0.0-0.045)
[2019-11-07] MEDS: ATORVASTATIN 40 MG TAB PO SCH (21:00)
[2019-11-07] MEDS ORDERED: RISPERIDONE 1 MG TABLET PO SCH (21:00)
[2019-11-08 05:51] LABS: Potassium 3.8 mmol/L (3.5-5.1)
[2019-11-08] MEDS: LEVOTHYROXINE SODIUM 100 MCG VIAL IV SCH (05:54)
[2019-11-08] MEDS ORDERED: KCL 20 MEQ/100 mL IVPB 20 MEQ/100 ML BAG IV SCH (06:00)
[2019-11-08] MEDS ORDERED: LEVOTHYROXINE SOD 0.1 MG TAB PO SCH (06:30)
[2019-11-08] MEDS: D5.45NS W/KCL 20MEQ 1,000 ML IV SCH (06:37)
[2019-11-08] MEDS: ESCITALOPRAM 20 MG TAB PO SCH (09:00)
[2019-11-08] MEDS: BUSPIRONE HCL 15 MG TABLET PO SCH (09:00)
[2019-11-08] MEDS: AMPHET ASP PO SCH (09:00)
[2019-11-08] MEDS: D AMPHET PO SCH (09:00)
[2019-11-08] MEDS: AMPHET PO SCH (09:00)
[2019-11-08] MEDS: PANTOPRAZOLE 40 MG INJ IVP SCH (09:14)
[2019-11-08] MEDS: ASPIRIN EC 81 MG TAB PO SCH (09:16)
--- NOTE | 2019-11-08 11:27 | P.PN ---
Subjective Date of Service: 11/08/19 Chief Complaint: Hypokalemia Physical Examination - Vital Signs Temperature: 97.7 F Blood Pressure: 165/85 Pulse: 53 Respirations: 18 Pulse Ox (%): 97 - Studies Laboratory Data (last 24 hrs) 11/07/19 16:50: Troponin I < 0.02 Assessment & Plan - Problems (Diagnosis) (1) Hypokalemia Current Visit: Yes Status: Acute (2) Abdominal pain Current Visit: Yes Status: Acute (3) Bradycardia Current Visit: Yes Status: Acute (4) Dehydration Current Visit: Yes Status: Acute (5) Acute renal insufficiency Current Visit: Yes Status: Acute (6) Anxiety Current Visit: Yes Status: Acute Plan: Hypokalemia Abdominal pain Chest discomfort Bradycardia Acute renal insufficiency Dehydration Anxiety History of depression History of hypothyroidism Plan Monitor under telemetry Replace potassium Electrolyte replacement protocol Trend cardiac enzymes Start on aspirin and statin will get a UDS Continue home medications Add on Protonix IV Monitor renal parameters IV fluids GI/DVT prophylaxis 11/07/2019 The TSH level is greatly elevated Given those IV synthroid increased the dose from 0.05 to 1 Monitored in the telemetry UDS screen monitor Appreciate help from cardiology Echocardiogram She additionally has delusions Psyc help appreciated Start on risperidone Will monitor closely
[2019-11-08 12:28] VITALS: O2SAT 99
--- NOTE | 2019-11-08 15:15 | P.DS ---
Admission Date: 11/07/19 Discharge Date: 11/08/19 Disposition: ROUTINE DISCHARGE Discharge Condition: FAIR Reason for Admission: Hypokalemia - Problems (1) Hypokalemia Status: Acute (2) Abdominal pain Status: Acute (3) Bradycardia Status: Acute (4) Dehydration Status: Acute (5) Acute renal insufficiency Status: Acute (6) Anxiety Status: Acute Brief History of Present Illness: 64 year old female who for came to ER with chest discomfort and abdominal pain and anxiety. at the time of interview of patient has been given Ativan and patient is sleepy and cold not answers any questions. Hence most of the history is obtained from chart review and also talking to the ER physician and the nurse at the bedside. as well some the patient started having abdominal epigastric discomfort all of a sudden and heard a pop while she bent down. Patient was assessed in the ER and workup was consistent with hypokalemia and was admitted for further monitoring and management. Patient could not answer any of my questions Hospital Course: She was admitted and was given IV hydration along with potassium replacement. she was very anxious and had to be given antianxiety medication For her bradycardia Cardiology was consulted and underwent an echocardiogram which was within normal limits , her TSH level was with a high and his Synthroid level was increased. She also had psychiatric evaluation and was recommended starting on Risperdal. Wanted to go home and is being discharged home today in a stable condition with advice to follow up with PCP in 1 week and also with psychiatry in 1-2 weeks Vital Signs/Physical Exam: Temp Pulse Resp BP Pulse Ox 98.3 F 69 20 167/78 H 98 11/08/19 12:00 11/08/19 12:11/08/19 12:00 11/08/19 12:11/08/19 12:00 General: Alert, In no apparent distress HEENT: Atraumatic, Normocephalic Neck: Supple Respiratory: Clear to auscultation bilaterally, Normal air movement Cardiovascular: No edema, Regular rate/rhythm Capillary refill: <2 Seconds Gastrointestinal: Soft and benign Musculoskeletal: No clubbing Integumentary: No rashes Neurological: Normal strength at 5/5 x4 extr Lymphatics: No axilla or inguinal lymphadenopathy External genitalia: Deferred Rectal: Deferred Laboratory Data at Discharge: WBC 6.9 K/uL (4.3-10.9) D 11/07/19 04:23 Hgb 11.9 g/dL (12.0-15.0) L 11/07/19 04:23 Hct 36.7 % (36.0-45.0) 11/07/19 04:23 Plt Count 291 K/uL (152-406) 11/07/19 04:23 PT 11.3 SECONDS (9.5-12.5) 11/06/19 16:45 INR 0.96 11/06/19 16:45 Sodium 140 mmol/L (136-145) 11/08/19 05:10 Potassium 3.8 mmol/L (3.5-5.1) 11/08/19 05:10 BUN 15 mg/dL (7-18) 11/08/19 05:10 Creatinine 1.41 mg/dL (0.55-1.3) H 11/08/19 05:10 Glucose 71 mg/dL (74-106) L 11/08/19 05:10 Phosphorus 2.6 mg/dL (2.5-4.9) 11/07/19 04:23 Magnesium 2.1 mg/dL (1.8-2.4) 11/07/19 04:23 Total Bilirubin 0.3 mg/dL (0.2-1.0) 11/07/19 04:23 AST 40 U/L (15-37) H 11/07/19 04:23 ALT 22 U/L (12-78) 11/07/19 04:23 Alkaline Phosphatase 78 U/L (45-117) 11/07/19 04:23 Troponin I < 0.02 ng/mL (0.0-0.045) 11/07/19 16:50 Triglycerides 107 mg/dL (<150) 11/07/19 04:23 Cholesterol 276 mg/dL (<200) H 11/07/19 04:23 HDL Cholesterol 71 mg/dL (40-60) H 11/07/19 04:23 Cholesterol/HDL Ratio 3.89 11/07/19 04:23 Lipase 79 U/L (73-393) 11/06/19 16:45 Home Medications: Levothyroxine [Synthroid*] 0.1 mg PO DAILYAC #30 tab 11/08/19 Pantoprazole [Protonix Tab] 40 mg PO DAILY #30 tab 11/08/19 risperiDONE [Risperdal 1 mg tab*] 1 mg PO BEDTIME #15 tab 11/08/19 New Medications: Levothyroxine [Synthroid*] 0.1 mg PO DAILYAC #30 tab Pantoprazole [Protonix Tab] 40 mg PO DAILY #30 tab risperiDONE [Risperdal 1 mg tab*] 1 mg PO BEDTIME #15 tab Diet: Regular Activity: Ad yogesh Time spent managing pt's care (in minutes): 39
[2019-11-08 16:17] VITALS: BP 172/84; TEMP 98.9
--- NOTE | 2019-11-11 12:13 | CON ---
Date of Consultation: 11/07/2019 Chief Complaint: Psychiatry is consulted on account of patient having agitation and anger outburst. History Of Present Illness: Ms. Carballo is a 64-year-old female, who was admitted via the ER on account of severe hypokalemia. Psychiatry is consulted on account of worsening agitation and anger outburst, observed to be paranoid about some people stealing her money. On interview, patient states she is angry and wants her money back. She states prior to her presenting to the ER, she was at a facility a long [facility], where she usually visit because she does have some friends there and during her recent visit she left a huge some of money with one of her friends there but when she went back for her money only to be tossed around. She states she is from very rich family and she has a lot of money and people are just taking advantage of her wealth. She denies neurovegetative symptoms of depression but admits to having anxiety. No auditory or visual hallucinations. No fluctuation level of consciousness. She could not say if she does have past psychiatric history but denies suicidal and homicidal ideation. Objective: Vital Signs: Blood pressure 167/78, pulse rate is 67, temperature is 98.3, respiratory rate is 20, 02 saturation is 98. Mental Status: Patient is a under nourished female, lying in bed, not in any acute distress. Patient is superficially cooperative. She is alert, oriented to person, place, and time. No stereotypic movement noted. Mild psychomotor agitation noted. Memory and concentration is fair. Thought process is linear. Thought content, patient appears to be delusional ( Grandiose delusion) . Speech is spontaneous spontaneous, hyperverbal and slightly pressured. Diagnoses: 1. Bipolar disorder current episode manic severe with psychotic features 2. Schizoaffective disorder, Bipolar subtype. Plan And Recommendations: 1. Recommend to continue Escitalopram 20 mg. 2. Recommend risperidone 1 mg p.o. q.h.s. for mood stability and psychotic symptoms. 3 Continue other medications. Discussed recommendations with primary team. SANTI/PAYAM Voice ID: [id number] Report ID: [id number] LAMBERT
== END 2019-11-08 16:07 | disposition home or self-care (01) | DRG 641 ==
LOC: ER 15:30 → ERHOLD 18:25 → 4TH 19:55 → OBSVTOIN 11-07 19:16
PROVIDERS: ADMIT Family Medicine; ATTEND Family Medicine
DX: E87.6 Hypokalemia (principal); F31.2 Bipolar disorder, current episode manic severe with psychotic features; E03.9 Hypothyroidism, unspecified; F41.8 Other specified anxiety disorders; R00.1 Bradycardia, unspecified; E86.0 Dehydration; N28.9 Disorder of kidney and ureter, unspecified; R10.13 Epigastric pain
CPT/HCPCS: 36415; 70450; 71045; 71250; 72125; 80048; 80053; 80061; 80076; 80307; 81003; 82272; 82550; 82553; 83690; 83735; 83880; 84100; 84439; 84443; 84484; 85025; 85610; 86850; 86900; 86901; 93005; 93306; 94760; 96365; 96366; 96375; 99285; C9113; G0378; J3010; J3480; J7030

== ENCOUNTER 2019-12-29 22:07 | Emergency (ER) | payer SELFPAY ==
[2019-12-29] MEDS ORDERED: MORPHINE 2 MG/ML SYR ONE (22:34)
[2019-12-29] MEDS ORDERED: NA CHLORIDE 0.9% 1,000 ML ONE (22:34)
[2019-12-29] MEDS ORDERED: ONDANSETRON 4 MG/2 ML VIAL ONE (22:34)
[2019-12-29 23:05] LABS: Absolute Lymphocytes (CBC) 1.9 K/uL (0.7-4.9); Basophils % 0.7 % (0-1.3); Hematocrit 33.8 % (36.0-45.0); Lymphocytes % 23.7 % (15.3-44.8); MPV 7.7 fL (7.6-11.3)
[2019-12-29 23:22] LABS: ALT/SGPT 17 U/L (12-78); AST/SGOT 18 U/L (15-37); Albumin 3.4 g/dL (3.4-5.0); Alkaline Phosphatase 91 U/L (45-117); BUN Blood Urea Nitrogen 21 mg/dL (7-18); Bicarbonate 26 mmol/L (21-32); Bilirubin Direct < 0.1 mg/dL (0-0.2); Glucose Level 84 mg/dL (74-106); Lipase 120 U/L (73-393); Potassium 4.1 mmol/L (3.5-5.1); Protein, Total 6.8 g/dL (6.4-8.2); Sodium Level 142 mmol/L (136-145)
[2019-12-29 23:25] LABS: Bilirubin Total < 0.1 mg/dL (0.2-1.0)
[2019-12-30 00:52] LABS: Urine Blood TRACE (NEG); Urine Glucose NEGATIVE (NEG); Urine Protein NEGATIVE (NEG); Urine Specific Gravity 1.025 (1.005-1.030)
--- NOTE | 2019-12-30 01:56 | ER ---
Nurse's Notes [facility] Name: Rhea Carballo Age: 64 yrs Sex: Female : 1955 Arrival Date: 12/29/2019 Time: 22:09 Bed 23 Private MD: Diagnosis: Abdominal pain. Bilateral nephrolithiasis Presentation: 12/28 22:11 Chief complaint: EMS states: "Her son says she has been having abdominal pain for the vc last 3 weeks, he has been trying to get her to come to the ER, today the pain is worse than it has been. She has experienced this in the past but doesn't remember what they did to fix it.". Coronavirus screen: Proceed with normal triage. Ebola Screen: No symptoms or risks identified at this time. Initial Sepsis Screen: Does the patient meet any 2 criteria? No. Patient's initial sepsis screen is negative. Does the patient have a suspected source of infection? No. Patient's initial sepsis screen is negative. Risk Assessment: Do you want to hurt yourself or someone else? Patient reports no desire to harm self or others. Onset of symptoms is unknown. 22:11 Method Of Arrival: EMS: [facility] vc 22:11 Acuity: МАРИНА 3 vc Triage Assessment: 23:11 General: Appears in no apparent distress. uncomfortable, ill, Behavior is anxious, vc crying. Pain: Complains of pain in left upper quadrant and right upper quadrant Pain does not radiate. Pain currently is 9 out of 10 on a pain scale. Quality of pain is described as sharp, stabbing. EENT: No signs and/or symptoms were reported regarding the EENT system. Neuro: Level of Consciousness is awake, alert, obeys commands, Oriented to person, place, time, situation. Cardiovascular: Patient's skin is warm and dry. Respiratory: Airway is patent Respiratory effort is even, unlabored, Respiratory pattern is regular, symmetrical. GI: Abdomen is flat, distended, distended in epigastric region. Bowel sounds hyperactive in right upper quadrant, left upper quadrant, right lower quadrant and left lower quadrant Abd is rigid in epigastric area Reports upper abdominal pain. : No signs and/or symptoms were reported regarding the genitourinary system. Derm: No signs and/or symptoms reported regarding the dermatologic system. Musculoskeletal: Circulation, motion, and sensation intact. Range of motion: limited in MCP of right index finger and MCP of right middle finger. Historical: - Home Meds: 22:21 levothyroxine oral [Active]; vc - PMHx: 22:21 Hypothyroidism; GI Bleed; Depression; chronic back pain; Serotonin Syndrome; vc - PSHx: 22:21 None; vc - Immunization history:: Adult Immunizations up to date. - Social history:: Smoking status: Patient reports the use of cigarette tobacco products, denies chronic smoking, but will smoke occasionally. Screenin:11 Abuse screen: Denies threats or abuse. Nutritional screening: No deficits noted. vc Tuberculosis screening: No symptoms or risk factors identified. Fall Risk None identified. Assessment: 22:09 Reassessment: See triage for assessment. vc 23:00 Reassessment: Patient appears in no apparent distress at this time. Patient and/or vc family updated on plan of care and expected duration. Pain level reassessed. Patient states feeling better. Patient states symptoms have improved. 12/29 00:00 Reassessment: Patient appears in no apparent distress at this time. Patient and/or vc family updated on plan of care and expected duration. Pain level reassessed. Patient is alert, oriented x 3, equal unlabored respirations, skin warm/dry/pink. Patient states feeling better. Patient states symptoms have improved. 01:00 Reassessment: Patient appears in no apparent distress at this time. Patient and/or vc family updated on plan of care and expected duration. Pain level reassessed. Patient resting with her eyes closed, chest rising equally. Vital Signs: 12/28 22:11 BP 178 / 114; Pulse 66; Resp 20; Temp 97.3; Pulse Ox 100% on R/A; Weight 63.5 kg; vc Height 5 ft. 7 in. (170.18 cm); Pain 9/10; 23:00 BP 140 / 58; Pulse 61; Resp 17; Pulse Ox 99% on R/A; vc 12/29 00:00 BP 143 / 61; Pulse 65; Resp 16; Pulse Ox 99% on R/A; vc 01:00 BP 124 / 67; Pulse 58; Resp 15; Pulse Ox 99% on R/A; vc 02:05 BP 134 / 61; Pulse 78; Resp 17; Temp 97.5; Pulse Ox 99% ; Pain 3/10; rv 12/28 22:11 Body Mass Index 21.93 (63.50 kg, 170.18 cm) vc ED Course: 12/28 22:09 Patient arrived in ED. ds1 22:09 Patient has correct armband on for positive identification. Bed in low position. vc manager monitoring on. Pulse ox on. 22:10 Sandeep Campos MD is Attending Physician. pkl 22:11 Brooke Ferrell, MADISON is Primary Nurse. vc 22:18 Triage completed. vc 22:50 No provider procedures requiring assistance completed. Missed attempt(s): 22 gauge in vc right forearm. Bleeding controlled, band aid applied, catheter tip intact. 23:19 Arm band placed on. vc 12/29 01:06 Abdomen In Process Unspecified. EDMS 01:30 Report given to MADISON Suárez. vc 01:55 Kayce Jo MD is Referral Physician. pkl 02:06 IV discontinued, intact, bleeding controlled, No redness/swelling at site. Pressure rv dressing applied. Administered Medications: 12/28 22:40 Drug: morphine 2 mg Route: IVP; Site: left forearm; vc 23:29 Follow up: Response: No adverse reaction; Pain is decreased vc 22:40 Drug: Zofran (Ondansetron) 4 mg Route: IVP; Site: right antecubital; vc 23:28 Follow up: Response: No adverse reaction; Pain is decreased vc 22:50 Drug: NS 0.9% 1000 ml Route: IV; Rate: 1000 ml; Site: left forearm; vc Outcome: 12/29 01:56 Discharge ordered by . pkl 02:05 Discharged to home ambulatory. rv 02:05 Condition: improved 02:05 Discharge instructions given to patient, Instructed on discharge instructions, follow up and referral plans. medication usage, Demonstrated understanding of instructions, follow-up care, medications, Prescriptions given X 1. 02:23 Patient left the ED. lp1 Signatures: Dispatcher [employer] EDMS Sandeep Campos MD MD pkl Sanford, Demi ds1 Dolores Hayden RN RN lp1 Mick El RN RN rv Brooke Ferrell, MADISON WALLACE vc Corrections: (The following items were deleted from the chart) 12/28 23:46 23:28 To radiology for Abdomen Pelvis W Con+CT.RAD.BRZ. vc EDMS 12/29 01:07 12/28 21:00 BP 140 / 58; Pulse 61bpm; Resp 17bpm; Pulse Ox 99% RA; vc vc
--- NOTE | 2019-12-30 01:57 | EDPHYS ---
Physician Documentation [facility] Name: Rhea Carballo Age: 64 yrs Sex: Female : 1955 Arrival Date: 12/29/2019 Time: 22:09 Bed 23 Private MD: ED Physician Sandeep Campos HPI: 12/28 22:26 This 64 yrs old Female presents to ER via EMS with complaints of Abdominal pkl Pain. 22:26 The patient presents with abdominal pain in the upper abdomen. Onset: The pkl symptoms/episode began/occurred 3 week(s) ago, and became worse today. The symptoms do not radiate. Associated signs and symptoms: Pertinent positives: diarrhea, 1 week ago, now resolved. Historical: - Home Meds: 22:21 levothyroxine oral [Active]; vc - PMHx: 22:21 Hypothyroidism; GI Bleed; Depression; chronic back pain; Serotonin Syndrome; vc - PSHx: 22:21 None; vc - Immunization history:: Adult Immunizations up to date. - Social history:: Smoking status: Patient reports the use of cigarette tobacco products, denies chronic smoking, but will smoke occasionally. ROS: 22:26 Eyes: Negative for injury, pain, redness, and discharge, ENT: Negative for injury, pkl pain, and discharge, Neck: Negative for injury, pain, and swelling, Cardiovascular: Negative for chest pain, palpitations, and edema, Respiratory: Negative for shortness of breath, cough, wheezing, and pleuritic chest pain. 22:26 Abdomen/GI: Positive for abdominal pain, of the right upper quadrant and left upper quadrant. 22:26 Back: Negative for acute changes. 22:26 : Negative for urinary symptoms. 22:26 MS/extremity: Negative for acute changes. 22:26 Skin: Negative for rash. 22:26 Neuro: Negative for altered mental status. Exam: 22:26 Head/Face: Normocephalic, atraumatic. Eyes: Pupils equal round and reactive to light, pkl extra-ocular motions intact. Lids and lashes normal. Conjunctiva and sclera are non-icteric and not injected. Cornea within normal limits. Periorbital areas with no swelling, redness, or edema. ENT: Nares patent. No nasal discharge, no septal abnormalities noted. Tympanic membranes are normal and external auditory canals are clear. Oropharynx with no redness, swelling, or masses, exudates, or evidence of obstruction, uvula midline. Mucous membranes moist. Neck: Trachea midline, no thyromegaly or masses palpated, and no cervical lymphadenopathy. Supple, full range of motion without nuchal rigidity, or vertebral point tenderness. No Meningismus. Chest/axilla: Normal chest wall appearance and motion. Nontender with no deformity. No lesions are appreciated. Cardiovascular: Regular rate and rhythm with a normal S1 and S2. No gallops, murmurs, or rubs. Normal PMI, no JVD. No pulse deficits. Respiratory: Lungs have equal breath sounds bilaterally, clear to auscultation and percussion. No rales, rhonchi or wheezes noted. No increased work of breathing, no retractions or nasal flaring. 22:26 Abdomen/GI: Bowel sounds: normal, Palpation: soft, mild abdominal tenderness, in the right upper quadrant and left upper quadrant. 22:26 Back: Exam negative for acute changes. 22:26 : Exam negative for acute changes. 22:26 Musculoskeletal/extremity: Exam is negative for acute changes. 22:26 Skin: Exam negative for rash. 22:26 Neuro: Orientation: is normal, Mentation: is normal, Cranial nerves: grossly normal, Motor: is normal. Vital Signs: 22:11 BP 178 / 114; Pulse 66; Resp 20; Temp 97.3; Pulse Ox 100% on R/A; Weight 63.5 kg; vc Height 5 ft. 7 in. (170.18 cm); Pain 9/10; 23:00 BP 140 / 58; Pulse 61; Resp 17; Pulse Ox 99% on R/A; vc 12/29 00:00 BP 143 / 61; Pulse 65; Resp 16; Pulse Ox 99% on R/A; vc 01:00 BP 124 / 67; Pulse 58; Resp 15; Pulse Ox 99% on R/A; vc 02:05 BP 134 / 61; Pulse 78; Resp 17; Temp 97.5; Pulse Ox 99% ; Pain 3/10; rv 12/28 22:11 Body Mass Index 21.93 (63.50 kg, 170.18 cm) vc MDM: 12/28 22:10 Patient medically screened. pkl 12/29 01:52 Data reviewed: vital signs, nurses notes, lab test result(s), radiologic studies, CT pkl scan. ED course: Patient feeling. Discussed lab. and CT Scan results with patient. Advised to follow up with Dr. Jo ( Urology ) in 2 to 3 days. Patient under instructions.. 12/28 22:26 Order name: Basic Metabolic Panel; Complete Time: 23:27 pkl 12/28 22:26 Order name: CBC with Diff; Complete Time: 23:27 pkl 12/28 22:26 Order name: Creatinine for Radiology; Complete Time: 23:27 pkl 12/28 22:26 Order name: Hepatic Function; Complete Time: 23:27 pkl 12/28 22:26 Order name: Lipase; Complete Time: 23:27 pkl 12/29 00:43 Order name: Urine Dipstick--Ancillary (enter results); Complete Time: 00:53 dh4 12/28 22:26 Order name: IV Saline Lock; Complete Time: 23:28 pkl 12/28 22:26 Order name: Labs collected and sent; Complete Time: 23:28 pkl 12/28 23:46 Order name: Abdomen EDMS Administered Medications: 12/28 22:40 Drug: morphine 2 mg Route: IVP; Site: left forearm; vc 23:29 Follow up: Response: No adverse reaction; Pain is decreased vc 22:40 Drug: Zofran (Ondansetron) 4 mg Route: IVP; Site: right antecubital; vc 23:28 Follow up: Response: No adverse reaction; Pain is decreased vc 22:50 Drug: NS 0.9% 1000 ml Route: IV; Rate: 1000 ml; Site: left forearm; vc Disposition: 12/30/19 01:56 Discharged to Home. Impression: Abdominal pain. Bilateral nephrolithiasis. - Condition is Stable. - Prescriptions for Tylenol- Codeine #3 300-30 mg Oral Tablet - take 1 tablet by ORAL route every 8 hours As needed; 20 tablet. - Medication Reconciliation Form, Thank You Letter, Antibiotic Education, Prescription Opioid Use form. - Follow up: Kayce Jo MD; When: 2 - 3 days; Reason: Re-evaluation by your physician. - Problem is new. - Symptoms have improved. Signatures: Dispatcher [facility] EDID Sandeep Campos MD MD pkl Dolores Hayden RN RN lp1 Brooke Ferrell RN RN vc Corrections: (The following items were deleted from the chart) 23:46 22:26 Abdomen Pelvis W Con+CT.RAD.IRIS ordered. [facility] EDID 12/29 02:23 01:56 12/30/2019 01:56 Discharged to Home. Impression: Abdominal pain. Bilateral lp1 nephrolithiasis. Condition is Stable. Forms are Medication Reconciliation Form, Thank You Letter, Antibiotic Education, Prescription Opioid Use. Follow up: Kayce Jo; When: 2 - 3 days; Reason: Re-evaluation by your physician. Problem is new. Symptoms have improved. pkl
[2019-12-30 02:53] VITALS: BP 134/61; TEMP 97.5; O2SAT 99
--- NOTE | 2019-12-30 12:14 | RAD REPORT ---
EXAM DESCRIPTION: CT - Abdomen Pelvis Wo Contrast - 12/30/2019 6:27 am COMPARISON: None CLINICAL HISTORY: [facility] MAIN TECHNIQUE: Multiple helical axial images were obtained through the abdomen and pelvis without intrav enous contrast. Sagittal and coronal reformatted images are reviewed as well. All CT scans at this facility use dose modulation, iterative reconstruction, and/or weight-based dosi ng when appropriate to reduce radiation dose to as low as reasonably achievable. FINDINGS: Lung bases: Unremarkable. Liver: Homogenous attenuation is demonstrated. Gallbladder/biliary: Gallbladder appears unremarkable. No calcified gallstones. No evidence of biliar y ductal dilatation. Pancreas: Unremarkable. Spleen: Unremarkable. Adrenals: Unremarkable. Kidneys and ureters: There are a few stones in the right kidney measuring up to 8 mm. There is a punc li stone in the upper pole of the left kidney. No obstructing ureteral stone. No evidence of hydron ephrosis. There are several rounded hypodense and mildly hyperdense cysts in both kidneys measuring u p to 2 cm. Bladder: Unremarkable. Pelvic organs: Unremarkable. Bowel: Colonic diverticula are present. No evidence of bowel obstruction. No bowel wall thickening. A ppendix appears unremarkable. Peritoneum: No free air. No significant free fluid. Lymph nodes: Unremarkable. Vasculature: Mild aortic atherosclerosis is demonstrated. Soft tissues: Unremarkable. Bones: Degenerative changes of the lumbar spine are present with disc space narrowing at L5-S1. There is grade 1 anterolisthesis of L5 relative to S1. IMPRESSION: 1. No evidence for an acute process within the abdomen or pelvis. 2. Bilateral nephrolithiasis. 3. Colonic diverticulosis. Electronically signed by: Vinod Mena MD 12/30/2019 1:24 AM CDT Due to temporary technical issues with the PACS/Fluency reporting system, reports are being signed by the in house radiologist as a courtesy to ensure prompt reporting. The interpreting radiologist is f ully responsible for the content of the report.
== END 2019-12-30 02:23 | disposition home or self-care (01) ==
LOC: ER 22:07
DX: N20.0 Calculus of kidney (principal); E03.9 Hypothyroidism, unspecified; Z72.0 Tobacco use
CPT/HCPCS: 36415; 74176; 80048; 80076; 81003; 83690; 85025; 96374; 96375; 99284; J2270; J2405; J7030

== ENCOUNTER 2020-01-01 03:02 | Emergency (ER) | payer SELFPAY ==
[2020-01-01] MEDS ORDERED: MAGNE/ALUM HYDROXD 30 ML UCUP ONE (03:28)
[2020-01-01] MEDS ORDERED: LIDOCAINE VISCOUS 2% SOLN 15 ML UDC ONE (03:29)
[2020-01-01] MEDS ORDERED: ONDANSETRON 4 MG/2 ML VIAL ONE (03:29)
[2020-01-01] MEDS ORDERED: MORPHINE 4 MG/ML SYR ONE (03:29)
[2020-01-01 03:53] LABS: Absolute Lymphocytes (CBC) 1.8 K/uL (0.7-4.9); Basophils % 0.8 % (0-1.3); Lymphocytes % 28.7 % (15.3-44.8); MPV 7.8 fL (7.6-11.3); RBC Red Blood Cell Count 3.92 M/uL (3.86-4.86)
[2020-01-01 04:04] LABS: ALT/SGPT 16 U/L (12-78); AST/SGOT 19 U/L (15-37); Albumin 3.2 g/dL (3.4-5.0); Alkaline Phosphatase 87 U/L (45-117); BUN Blood Urea Nitrogen 18 mg/dL (7-18); Bicarbonate 29 mmol/L (21-32); Bilirubin Direct < 0.1 mg/dL (0-0.2); Bilirubin Total 0.1 mg/dL (0.2-1.0); Glucose Level 86 mg/dL (74-106); Lipase 43 U/L (73-393); Potassium 4.3 mmol/L (3.5-5.1); Protein, Total 6.6 g/dL (6.4-8.2); Sodium Level 142 mmol/L (136-145); Troponin (Emerg Dept Use Only) < 0.02 ng/mL (0.0-0.045)
--- NOTE | 2020-01-01 04:27 | EDPHYS ---
Physician Documentation [facility] Name: Rhea Carballo Age: 64 yrs Sex: Female : 1955 Arrival Date: 01/01/2020 Time: 03:07 Bed 7 Private MD: ED Physician Mino Morrison HPI: 12/31 03:19 This 64 yrs old Female presents to ER via Wheelchair with complaints of rn abdominal pain. 03:19 The patient presents with abdominal pain in the epigastric area. Onset: The rn symptoms/episode began/occurred 1 week(s) ago. The symptoms do not radiate. Associated signs and symptoms: Pertinent positives: nausea, Pertinent negatives: anorexia, blood in stools, diarrhea, dysuria, fever, hematuria. The symptoms are described as intermittent, sharp. Modifying factors: The symptoms are alleviated by nothing, the symptoms are aggravated by touching the area. Severity of pain: At its worst the pain was moderate in the emergency department the pain is unchanged. The patient has experienced similar episodes in the past. The patient has been recently seen at the [facility] Emergency Department. Reports seen for this a few days ago, no fever, told had kidney stones. Has hx of gastric ulcers and thought it may be ulcers. Denies blood in stool. [place] better after discharge and pain medication but pain returned tonight. No hematemesis. Has not taken any antacid medication. . Historical: - Allergies: 03:19 No Known Allergies; rr5 - Home Meds: 03:19 Folic Acid Oral [Active]; levothyroxine oral [Active]; rr5 - PMHx: 03:19 chronic back pain; Depression; GI Bleed; Hypothyroidism; SEROTONIN SYNDROME; rr5 - Immunization history:: Adult Immunizations up to date. - Social history:: Smoking status: unknown Patient/guardian denies using alcohol, street drugs, tobacco products. - Family history:: not pertinent. - Hospitalizations: : No recent hospitalization is reported. ROS: 03:19 Constitutional: Negative for fever, chills, and weight loss, Eyes: Negative for injury, rn pain, redness, and discharge, Cardiovascular: Negative for chest pain, palpitations, and edema, Respiratory: Negative for shortness of breath, cough, wheezing, and pleuritic chest pain, Abdomen/GI: + abd pain and nausea, negative for blood in stool MS/Extremity: Negative for injury and deformity, Skin: Negative for injury, rash, and discoloration, Neuro: Negative for headache, weakness, numbness, tingling, and seizure. Exam: 03:19 Constitutional: This is a well developed, well nourished patient who is awake, alert, rn crying ENT: MMM Cardiovascular: Regular rate and rhythm. No pulse deficits. Respiratory: Mild tachypnea but crying. Abdomen/GI: soft, + epigastric tenderness, no masses, no skin discoloration Skin: Warm, dry MS/ Extremity: Pulses equal, no cyanosis. Neuro: Awake and alert, GCS 15 03:25 ECG was reviewed by the Attending Physician. rn Vital Signs: 03:15 BP 170 / 108; Pulse 66; Resp 20; Temp 97.8; Pulse Ox 98% ; Weight 63.5 kg; Height 5 ft. rr5 7 in. (170.18 cm); Pain 8/10; 04:00 BP 118 / 53; Pulse 57; Resp 16; Pulse Ox 99% ; Pain 4/10; rr5 04:32 BP 144 / 67; Pulse 77; Resp 17; Temp 97.8; Pulse Ox 100% ; rr5 03:15 Body Mass Index 21.93 (63.50 kg, 170.18 cm) rr5 MDM: 03:08 Patient medically screened. rn 04:25 Differential diagnosis: gastritis, gastroesophageal reflux disease, non-specific abd rn pain, pancreatitis, Peptic Ulcer Disease, Ureterolithiasis. Data reviewed: vital signs, nurses notes, lab test result(s), and as a result, I will discharge patient. Counseling: I had a detailed discussion with the patient and/or guardian regarding: the historical points, exam findings, and any diagnostic results supporting the discharge/admit diagnosis, lab results, radiology results, the need for outpatient follow up, to return to the emergency department if symptoms worsen or persist or if there are any questions or concerns that arise at home. Response to treatment: the patient's symptoms have markedly improved after treatment, the patient's symptoms have resolved after treatment, the patient's condition has returned to base line, the patient is now symptom free, and as a result, I will discharge patient. Special discussion: Based on the patient's Hx, exam, and Dx evaluation, there is no indication for emergent surgery or inpatient Tx. It is understood by the patient/guardian that if the Sx's persist or worsen they need to return immediately for re-evaluation. I discussed with the patient/guardian in detail that at this point there is no indication for admission to the hospital. It is understood, however, that if the symptoms persist or worsen the patient needs to return immediately for re-evaluation. ED course: Pain resolved after GI cocktail, most likely gastritis/GERD given epigastric pain, neg ct abdomen just a few days ago, hx of gastric ulcers, and undergoing a lot of stress currently. Not taking antacids. Will dc home with antacids and GI f/u. . 12/31 03:18 Order name: CBC with Diff; Complete Time: 04:05 rn 12/31 03:18 Order name: Basic Metabolic Panel; Complete Time: 04:05 rn 12/31 03:18 Order name: Creatinine for Radiology; Complete Time: 04:05 rn 12/31 03:18 Order name: Hepatic Function; Complete Time: 04:05 rn 12/31 03:18 Order name: Lipase; Complete Time: 04:05 rn 12/31 03:18 Order name: Troponin (emerg Dept Use Only); Complete Time: 04:05 rn 12/31 03:18 Order name: IV Start; Complete Time: 03:36 rn 12/31 03:18 Order name: Labs collected and sent; Complete Time: 03:36 rn 12/31 03:18 Order name: EKG; Complete Time: 03:19 rn 12/31 03:18 Order name: EKG - Nurse/Tech; Complete Time: 03:36 rn EC:25 Rate is 63 beats/min. Rhythm is regular. QRS [place] is Normal. [place] interval is normal. QRS rn interval is normal. QT interval is normal. No Q waves. T waves are Normal. No ST changes noted. Clinical impression: Normal ECG. Interpreted by me. Reviewed by me. Administered Medications: 03:30 Drug: GI Cocktail without - (Maalox Suspension 30 ml, Lidocaine Liquid 2 % 15 rr5 ml) Route: PO; 04:07 Follow up: Response: No adverse reaction; Marked relief of symptoms rr5 03:33 Drug: Zofran (Ondansetron) 4 mg Route: IVP; Site: left antecubital; rr5 04:07 Follow up: Response: No adverse reaction; Marked relief of symptoms rr5 03:35 Drug: morphine 4 mg {Note: rass 0.} Route: IVP; Site: left antecubital; rr5 04:07 Follow up: Response: No adverse reaction; Pain is decreased; RASS: Alert and Calm (0) rr5 Disposition: 01/01/20 04:26 Discharged to Home. Impression: Gastritis, unspecified, without bleeding. - Condition is Stable. - Discharge Instructions: Gastritis, Adult. - Prescriptions for Protonix 40 mg Oral Tablet - take 1 tablet by ORAL route once daily; 30 tablet. - Medication Reconciliation Form, Thank You Letter, Antibiotic Education, Prescription Opioid Use form. - Follow up: Private Physician; When: As needed; Reason: Recheck today's complaints, Re-evaluation by your physician. - Problem is an ongoing problem. - Symptoms have improved. Signatures: Dispatcher [employer] [facility] Mino Morrison MD MD rn Roque, Raymond, RN RN rr5 Corrections: (The following items were deleted from the chart) 04:29 03:43 Angio Aorta For Dissection+CT.RAD.BRZ ordered. [facility] 04:45 04:26 01/01/2020 04:26 Discharged to Home. Impression: Gastritis, unspecified, without rr5 bleeding. Condition is Stable. Forms are Medication Reconciliation Form, Thank You Letter, Antibiotic Education, Prescription Opioid Use. Follow up: Private Physician; When: As needed; Reason: Recheck today's complaints, Re-evaluation by your physician. Problem is an ongoing problem. Symptoms have improved. rn
--- NOTE | 2020-01-01 04:27 | ER ---
Nurse's Notes [facility] Name: Rhea Carballo Age: 64 yrs Sex: Female : 1955 Arrival Date: 01/01/2020 Time: 03:07 Bed 7 Private MD: Diagnosis: Gastritis, unspecified, without bleeding Presentation: 12/31 03:15 Chief complaint: Patient states: abdominal pain started couple of days ago, feels rr5 nauseated. recently came here with the same complaint and diagnosed with kidney stone. Coronavirus screen: Proceed with normal triage. Patient denies a cough. Patient denies shortness of breath or difficulty breathing. Patient denies measured and/or subjective temperature greater than 100.4F prior to today's visit. Patient denies travel on a cruise ship or to a country the [facility] currently lists as an affected area. Patient denies contact with known and/or suspected case of COVID-19. Ebola Screen: No symptoms or risks identified at this time. Initial Sepsis Screen: Does the patient meet any 2 criteria? No. Patient's initial sepsis screen is negative. Does the patient have a suspected source of infection? No. Patient's initial sepsis screen is negative. Risk Assessment: Do you want to hurt yourself or someone else? Patient reports no desire to harm self or others. Onset of symptoms was December 2019. 03:15 Method Of Arrival: Wheelchair rr5 03:15 Acuity: МАРИНА 3 rr5 Historical: - Allergies: 03:19 No Known Allergies; rr5 - Home Meds: 03:19 Folic Acid Oral [Active]; levothyroxine oral [Active]; rr5 - PMHx: 03:19 chronic back pain; Depression; GI Bleed; Hypothyroidism; SEROTONIN SYNDROME; rr5 - Immunization history:: Adult Immunizations up to date. - Social history:: Smoking status: unknown Patient/guardian denies using alcohol, street drugs, tobacco products. - Family history:: not pertinent. - Hospitalizations: : No recent hospitalization is reported. Screenin:20 Abuse screen: Denies threats or abuse. Denies injuries from another. Nutritional rr5 screening: No deficits noted. Tuberculosis screening: No symptoms or risk factors identified. Fall Risk IV access (20 points). Total Seth Fall Scale indicates No Risk (0-24 pts). Assessment: 03:15 General: Appears in no apparent distress. uncomfortable, ill, Behavior is calm, rr5 cooperative, appropriate for age, crying. 03:15 Pain: Complains of pain in epigastric area Pain radiates to left upper quadrant Pain rr5 currently is 8 out of 10 on a pain scale. Quality of pain is described as aching, Pain began gradually, 2-3 days ago. Is intermittent. Neuro: Level of Consciousness is awake, alert, obeys commands, Oriented to person, place, time, situation. Cardiovascular: Capillary refill < 3 seconds Patient's skin is warm and dry. Respiratory: Airway is patent Respiratory effort is even, unlabored, Respiratory pattern is regular, symmetrical. GI: Abdomen is round non-distended, Reports upper abdominal pain, nausea. : Reports i have a kidney stones. EENT: No signs and/or symptoms were reported regarding the EENT system. Derm: Skin is intact, is healthy with good turgor, Skin temperature is warm. Musculoskeletal: Circulation, motion, and sensation intact. Capillary refill < 3 seconds. 04:00 Reassessment: Patient appears in no apparent distress at this time. Patient is alert, rr5 oriented x 3, equal unlabored respirations, skin warm/dry/pink. awaiting for results. i feel relax now as stated by the patient. Patient states feeling better. Patient states symptoms have improved. 04:31 Reassessment: Patient appears in no apparent distress at this time. Patient is alert, rr5 oriented x 3, equal unlabored respirations, skin warm/dry/pink. reassessment done by ED provider with order for discharge. instruction given and explained without complaints made. Patient states feeling better. Patient states symptoms have improved. Vital Signs: 03:15 BP 170 / 108; Pulse 66; Resp 20; Temp 97.8; Pulse Ox 98% ; Weight 63.5 kg; Height 5 ft. rr5 7 in. (170.18 cm); Pain 8/10; 04:00 BP 118 / 53; Pulse 57; Resp 16; Pulse Ox 99% ; Pain 4/10; rr5 04:32 BP 144 / 67; Pulse 77; Resp 17; Temp 97.8; Pulse Ox 100% ; rr5 03:15 Body Mass Index 21.93 (63.50 kg, 170.18 cm) rr5 ED Course: 03:07 Patient arrived in ED. ds1 03:08 Mino Morrison MD is Attending Physician. rn 03:18 Triage completed. rr5 03:19 Arm band placed on right wrist. rr5 03:20 Patient has correct armband on for positive identification. Placed in gown. Bed in low rr5 position. Call light in reach. Side rails up X2. compliance analyst on. Pulse ox on. NIBP on. 03:21 Jake Hu, RN is Primary Nurse. rr5 03:31 Inserted saline lock: 20 gauge in left antecubital area, using aseptic technique. Blood rr5 collected. 04:35 No provider procedures requiring assistance completed. IV discontinued, intact, rr5 bleeding controlled, No redness/swelling at site. Pressure dressing applied. Administered Medications: 03:30 Drug: GI Cocktail without - (Maalox Suspension 30 ml, Lidocaine Liquid 2 % 15 rr5 ml) Route: PO; 04:07 Follow up: Response: No adverse reaction; Marked relief of symptoms rr5 03:33 Drug: Zofran (Ondansetron) 4 mg Route: IVP; Site: left antecubital; rr5 04:07 Follow up: Response: No adverse reaction; Marked relief of symptoms rr5 03:35 Drug: morphine 4 mg {Note: rass 0.} Route: IVP; Site: left antecubital; rr5 04:07 Follow up: Response: No adverse reaction; Pain is decreased; RASS: Alert and Calm (0) rr5 Outcome: 04:26 Discharge ordered by . rn 04:35 Discharged to home via wheelchair, with family. rr5 04:35 Condition: stable 04:35 Discharge instructions given to patient, Instructed on discharge instructions, follow up and referral plans. medication usage, Demonstrated understanding of instructions, follow-up care, medications, Prescriptions given X 1. 04:45 Patient left the ED. rr5 Signatures: Alecia Domingo ds1 Mino Morrison MD MD rn Roque, Raymond, RN RN rr5
[2020-01-01 04:53] VITALS: TEMP 97.8
[2020-01-01 04:56] VITALS: BP 144/67; O2SAT 100
--- NOTE | 2020-01-01 12:51 | EKG ---
Test Date: 2020-01-01 Test Time: 03:19:45 Bulk Clerk: RICKEY MEASUREMENT RESULTS: Intervals: Rate: 85 MN: 118 QRSD: 86 QT: 368 QTc: 437 [place]: P: 14 MN: 118 QRS: 53 T: 42 INTERPRETIVE STATEMENTS: Normal sinus rhythm with sinus arrhythmia Normal ECG Compared to ECG 11/06/2019 16:03:24 Sinus bradycardia no longer present ST (T wave) deviation no longer present Possible ischemia no longer present Electronically Signed On 01-01-20 12:49:45 CDT by Len Tobar
--- NOTE | 2020-01-01 12:51 | EKG ---
Test Date: 2020-01-01 Test Time: 03:20:10 Industrial Engineering Technologist: RICKEY MEASUREMENT RESULTS: Intervals: Rate: 63 AR: 124 QRSD: 94 QT: 386 QTc: 395 [place]: P: 17 AR: 124 QRS: 55 T: 52 INTERPRETIVE STATEMENTS: Normal sinus rhythm Normal ECG Compared to ECG 01/01/2020 03:19:45 Sinus arrhythmia no longer present Electronically Signed On 01-01-20 12:49:43 CDT by Len Tobar
== END 2020-01-01 04:45 | disposition home or self-care (01) ==
LOC: ER 03:02
DX: K29.70 Gastritis, unspecified, without bleeding (principal); Z87.11 Personal history of peptic ulcer disease; E03.9 Hypothyroidism, unspecified; Z79.899 Other long term (current) drug therapy
CPT/HCPCS: 36415; 80048; 80076; 83690; 84484; 85025; 93005; 96374; 96375; 99284; J2405

== ENCOUNTER 2020-01-22 14:23 | Emergency (ER) | payer SELFPAY ==
[2012-04-07 03:25] VITALS: BP 132/76
--- NOTE | 2020-01-22 14:38 | ER ---
Nurse's Notes [facility] Name: Rhea Carballo Age: 64 yrs Sex: Female : 1955 Arrival Date: 01/22/2020 Time: 14:26 Bed 19 Private MD: Diagnosis: Encounter for screening, unspecified Presentation: 01/21 14:20 Chief complaint: EMS states: called out by JOSE for pt acting erratically in the [facility] parking lot. She was waiting for her friend that was inside. Denies drug use or ETOH use. Pt denies SOB at this time. Coronavirus screen: Proceed with normal triage. Patient denies a cough. Patient denies shortness of breath or difficulty breathing. Patient denies measured and/or subjective temperature greater than 100.4F prior to today's visit. Patient denies travel on a cruise ship or to a country the [facility] currently lists as an affected area. Patient denies contact with known and/or suspected case of COVID-19. Ebola Screen: No symptoms or risks identified at this time. 14:20 Method Of Arrival: EMS: [facility] 14:20 Initial Sepsis Screen: Does the patient meet any 2 criteria? No. Patient's initial sv sepsis screen is negative. Does the patient have a suspected source of infection? No. Patient's initial sepsis screen is negative. Risk Assessment: Do you want to hurt yourself or someone else? Patient reports no desire to harm self or others. Onset of symptoms was January 22, 2020. 14:20 Acuity: МАРИНА 4 sv Triage Assessment: 14:34 General: Appears in no apparent distress. comfortable, Behavior is calm, cooperative, sv appropriate for age. Pain: Denies pain. Neuro: Level of Consciousness is awake, alert, obeys commands, Oriented to person, place, time, situation, Moves all extremities. Full function Speech is normal. Respiratory: Airway is patent Respiratory effort is even, unlabored, Respiratory pattern is regular, symmetrical. Derm: Skin is pink, warm \T\ dry. Historical: - Allergies: 14:33 Iodine; sv - Home Meds: 14:33 levothyroxine oral [Active]; sv - PMHx: 14:33 chronic back pain; Depression; GI Bleed; Hypothyroidism; SEROTONIN SYNDROME; sv - Immunization history:: Adult Immunizations up to date. - Social history:: Smoking status: unknown Patient/guardian denies using alcohol, street drugs, IV drugs. Screenin:34 Abuse screen: Denies threats or abuse. Denies injuries from another. Nutritional sv screening: No deficits noted. Tuberculosis screening: No symptoms or risk factors identified. Fall Risk None identified. Assessment: 15:46 Reassessment: Patient appears in no apparent distress at this time. No changes from sv previously documented assessment. Patient and/or family updated on plan of care and expected duration. Pain level reassessed. Patient is alert, oriented x 3, equal unlabored respirations, skin warm/dry/pink. Vital Signs: 14:20 BP 150 / 71; Pulse 92; Resp 16; Temp 99.1; Pulse Ox 99% ; Pain 0/10; sv 15:46 BP 138 / 70; Pulse 88; Resp 16; Pulse Ox 99% ; sv ED Course: 14:26 Patient arrived in ED. sv 14:27 Abeba Pham FNP-C [facility]. snw 14:27 Jaya Aleman MD is Attending Physician. snw 14:29 Shu Bautista, [place] is Primary Nurse. sv 14:32 Triage completed. sv 14:33 Arm band placed on Patient placed in an exam room, on a stretcher. sv 14:34 Nurse Practitioner and/or Physician Adapted Physical Education Specialist to see patient. sv 14:34 Patient has correct armband on for positive identification. Bed in low position. Call sv light in reach. Pulse ox on. NIBP on. Door closed. Head of bed elevated. 15:47 No provider procedures requiring assistance completed. Patient did not have IV access sv during this emergency room visit. Administered Medications: No medications were administered Outcome: 14:38 Discharge ordered by . snw 15:47 Discharged to home via wheelchair, Taxi here to take pt to her car at [facility] parking lot sv 15:47 Condition: stable 15:47 Discharge instructions given to patient, Instructed on discharge instructions, follow up and referral plans. Demonstrated understanding of instructions, follow-up care. 15:48 Patient left the ED. sv Signatures: Shu Bautista RN RN sv Abeba Pham FNP-C SYSTEMS [id number]
--- NOTE | 2020-01-22 14:39 | EDPHYS ---
Physician Documentation [facility] Name: Rhea Carballo Age: 64 yrs Sex: Female : 1955 Arrival Date: 01/22/2020 Time: 14:26 Bed 19 Private MD: ED Physician Jaya Aleman HPI: 01/21 15:32 This 64 yrs old Female presents to ER via EMS with complaints of Psych snw Problem, Shortness Of Breath. 15:32 The patient presents to the emergency department with pt states she is not having any snw complaints currently, + hx of anxiety. Was at [facility] waiting for her friend. Onset: The symptoms/episode began/occurred suddenly. Associated signs and symptoms: The patient has no apparent associated signs or symptoms. Severity of symptoms: At their worst the symptoms were very mild. It is unknown whether or not the patient has had similar symptoms in the past. It is unknown whether or not the patient has recently seen a physician. Historical: - Allergies: 14:33 Iodine; sv - Home Meds: 14:33 levothyroxine oral [Active]; sv - PMHx: 14:33 chronic back pain; Depression; GI Bleed; Hypothyroidism; SEROTONIN SYNDROME; sv - Immunization history:: Adult Immunizations up to date. - Social history:: Smoking status: unknown Patient/guardian denies using alcohol, street drugs, IV drugs. ROS: 15:32 Constitutional: Negative for fever, chills, and weight loss, Eyes: Negative for injury, snw pain, redness, and discharge, ENT: Negative for injury, pain, and discharge, Neck: Negative for injury, pain, and swelling, Cardiovascular: Negative for chest pain, palpitations, and edema, Respiratory: Negative for shortness of breath, cough, wheezing, and pleuritic chest pain, Abdomen/GI: Negative for abdominal pain, nausea, vomiting, diarrhea, and constipation, Back: Negative for injury and pain, : Negative for injury, bleeding, discharge, and swelling, MS/Extremity: Negative for injury and deformity, Skin: Negative for injury, rash, and discoloration, Neuro: Negative for headache, weakness, numbness, tingling, and seizure, Psych: Negative for depression, anxiety, suicide ideation, homicidal ideation, and hallucinations. Exam: 15:30 Constitutional: This is a well developed, well nourished patient who is awake, alert, snw and in no acute distress. Head/Face: Normocephalic, atraumatic. Eyes: Pupils equal round and reactive to light, extra-ocular motions intact. Lids and lashes normal. Conjunctiva and sclera are non-icteric and not injected. Cornea within normal limits. Periorbital areas with no swelling, redness, or edema. ENT: Nares patent. No nasal discharge, no septal abnormalities noted. Tympanic membranes are normal and external auditory canals are clear. Oropharynx with no redness, swelling, or masses, exudates, or evidence of obstruction, uvula midline. Mucous membranes moist. Neck: Trachea midline, no thyromegaly or masses palpated, and no cervical lymphadenopathy. Supple, full range of motion without nuchal rigidity, or vertebral point tenderness. No Meningismus. Chest/axilla: Normal chest wall appearance and motion. Nontender with no deformity. No lesions are appreciated. Cardiovascular: Regular rate and rhythm with a normal S1 and S2. No gallops, murmurs, or rubs. Normal PMI, no JVD. No pulse deficits. Respiratory: Lungs have equal breath sounds bilaterally, clear to auscultation and percussion. No rales, rhonchi or wheezes noted. No increased work of breathing, no retractions or nasal flaring. Abdomen/GI: Soft, non-tender, with normal bowel sounds. No distension or tympany. No guarding or rebound. No evidence of tenderness throughout. Back: No spinal tenderness. No costovertebral tenderness. Full range of motion. Skin: Warm, dry with normal turgor. Normal color with no rashes, no lesions, and no evidence of cellulitis. MS/ Extremity: Pulses equal, no cyanosis. Neurovascular intact. Full, normal range of motion. Neuro: Awake and alert, GCS 15, oriented to person, place, time, and situation. Cranial nerves II-XII grossly intact. Motor strength 5/5 in all extremities. Sensory grossly intact. Cerebellar exam normal. Normal gait. 15:30 Psych: Behavior/mood is pleasant, cooperative, Affect is animated, Oriented to person, place, time, Patient has no thoughts/intents to harm self or others. abnormal movements noted that friend states is her norm. Pt states she feels normal, no complaints, no pain.. Vital Signs: 14:20 BP 150 / 71; Pulse 92; Resp 16; Temp 99.1; Pulse Ox 99% ; Pain 0/10; sv 15:46 BP 138 / 70; Pulse 88; Resp 16; Pulse Ox 99% ; sv MDM: 14:29 Patient medically screened. snw 15:34 Data reviewed: vital signs, nurses notes. Data interpreted: Pulse oximetry: on room air snw is 99 %. Interpretation: normal. Counseling: I had a detailed discussion with the patient and/or guardian regarding: the historical points, exam findings, and any diagnostic results supporting the discharge/admit diagnosis, the presence of at least one elevated blood pressure reading (>120/80) during this emergency department visit, to return to the emergency department if symptoms worsen or persist or if there are any questions or concerns that arise at home. Special discussion: I have referred the patient to see his PCP for further evaluation of high blood pressure. Based on the history and exam findings, there is no indication for further emergent testing or inpatient evaluation. I discussed with the patient/guardian the need to see the primary care provider for further evaluation of the symptoms. Administered Medications: No medications were administered Disposition: 17:15 Co-signature as Attending Physician, Jaya Aleman MD I agree with the assessment and kdr plan of care. Disposition: 01/22/20 14:38 Discharged to Home. Impression: Encounter for screening, unspecified. - Condition is Stable. - Discharge Instructions: Hypertension. - Medication Reconciliation Form, Thank You Letter, Antibiotic Education, Prescription Opioid Use form. - Follow up: Emergency Department; When: As needed; Reason: Worsening of condition. Follow up: Private Physician; When: 2 - 3 days; Reason: Recheck today's complaints, Continuance of care, Re-evaluation by your physician. Signatures: Shu Bautista RN RN sv Rittger, Kevin, MD MD kdr Therrien, Shelly, [employer]-C [employer]-Csnw Corrections: (The following items were deleted from the chart) 15:48 14:38 01/22/2020 14:38 Discharged to Home. Impression: Encounter for screening, sv unspecified. Condition is Stable. Forms are Medication Reconciliation Form, Thank You Letter, Antibiotic Education, Prescription Opioid Use. Follow up: Emergency Department; When: As needed; Reason: Worsening of condition. Follow up: Private Physician; When: 2 - 3 days; Reason: Recheck today's complaints, Continuance of care, Re-evaluation by your physician. sanjiv
== END 2020-01-22 15:48 | disposition home or self-care (01) ==
LOC: ER 14:23
DX: Z00.00 Encounter for general adult medical examination without abnormal findings (principal); E03.9 Hypothyroidism, unspecified; Z91.048 Other nonmedicinal substance allergy status
CPT/HCPCS: 99283

== ENCOUNTER 2020-03-10 05:57 | Emergency (ER) | payer SELFPAY ==
[2020-03-10] MEDS ORDERED: NA CHLORIDE 0.9% 1,000 ML ONE (06:27)
--- NOTE | 2020-03-10 07:25 | RAD REPORT ---
EXAM DESCRIPTION: CT - Stone Protocol - 03/10/2020 6:57 am CLINICAL HISTORY: ABD PAIN COMPARISON: Abdomen Pelvis Wo Contrast dated 12/30/2019 TECHNIQUE: Axial 5 mm thick images were obtained without oral or IV contrast. The [id number] span s the entirety of the system including uppermost abdomen and lung bases. All CT scans are performed using dose optimization technique as appropriate and may include automated exposure control or mA/KV adjustment according to patient size. FINDINGS: No hydronephrosis identified in either kidney. No hydroureter. No bladder calculus seen. P jan has numerous pelvic floor phleboliths. Patient has several mid and lower pole right renal calc radha. There is a cluster of 6-9 stones in the lower pole. Both kidneys show heterogeneous attenuation and nodular contour. Hypodense and hyperdense masses are present most likely a combination of simple high protein content cysts. No suspicious renal masses. Isodense masses and pyelonephritis are not ex cluded on a stone protocol CT scan. No significant adrenal finding. No uterine abnormality. Ovaries a re isodense to adjacent bowel. No suspicion for ovarian mass. Imaged portions of the liver, spleen and pancreas show no suspicious findings on non-contrast imaging . No gallbladder or biliary tree abnormality identified. Large amount of food fills but does not dilate the stomach. No dilated small bowel. Large stool volum e distends the entirety of the colon. Patient has numerous diverticula containing contrast from prior diagnostic studies. Acute colon process is not seen. Mucosal level acute disease can be occult on CT imaging. No hernia, mass or bulky lymphadenopathy noted. No free air, free fluid or inflammatory stranding. Advanced degenerative change present at the L5-S1 level. There is L5 subluxation mild in degree. This is secondary to severe facet degenerative change. This is a stable presentation. Prominent left hip joint degenerative changes are present. No pathologic bone process. IMPRESSION: No hydronephrosis or obstructing calculus identifiable. No bladder calculi seen. Patient has bilateral nonobstructing calculi. Patient has heterogeneity of the renal parenchyma with simple and high protein content cysts. The het erogeneity of the parenchyma is similar to comparison. Isodense masses and pyelonephritis are not excluded on stone protocol technique.
[2020-03-10 07:57] LABS: Absolute Lymphocytes (CBC) 1.6 K/uL (0.7-4.9); Basophils % 0.5 % (0-1.3); Hematocrit 22.9 % (36.0-45.0); MPV 7.4 fL (7.6-11.3); RBC Red Blood Cell Count 2.95 M/uL (3.86-4.86)
[2020-03-10 08:09] LABS: Potassium 4.8 mmol/L (3.5-5.1)
[2020-03-10 09:07] LABS: Urine Blood NEGATIVE (NEG); Urine Glucose NEGATIVE (NEG); Urine Protein NEGATIVE (NEG); Urine Specific Gravity 1.025 (1.005-1.030); Urine pH 5.5 (5.0-7.0)
--- NOTE | 2020-03-10 09:34 | ER ---
Nurse's Notes [facility] Name: Rhea Carballo Age: 64 yrs Sex: Female : 1955 Arrival Date: 03/10/2020 Time: 06:06 Bed 8 Private MD: Diagnosis: Constipation;Anemia, unspecified Presentation: 03/10 06:07 Chief complaint: EMS states: "The son told us that she had passed out while going to [facility] the restroom. the patient's main report was that she was having left lower abdominal pain and having problems using the restroom. she does have a lower blood pressure, but she and her son are poor historians so we don't have that good of a background for you.". Coronavirus screen: Proceed with normal triage. Ebola Screen: Patient negative for fever greater than or equal to 101.5 degrees Fahrenheit, and additional compatible Ebola Virus Disease symptoms. Initial Sepsis Screen: Does the patient meet any 2 criteria? No. Patient's initial sepsis screen is negative. Does the patient have a suspected source of infection? No. Patient's initial sepsis screen is negative. Risk Assessment: Do you want to hurt yourself or someone else? Patient reports no desire to harm self or others. Onset of symptoms was March 10, 2020. 06:07 Method Of Arrival: EMS: [facility] 06:07 Acuity: МАРИНА 3 jd3 Historical: - Allergies: 06:13 Iodine; jd3 - Home Meds: 06:13 Folic Acid Oral [Active]; levothyroxine oral [Active]; jd3 - PMHx: 06:13 chronic back pain; Depression; GI Bleed; Hypothyroidism; SEROTONIN SYNDROME; jd3 - Immunization history:: Adult Immunizations unknown. - Social history:: Smoking status: Patient reports the use of cigarette tobacco products, unknown amount. Screenin:08 Abuse screen: Denies threats or abuse. Denies injuries from another. Nutritional mg2 screening: No deficits noted. Tuberculosis screening: No symptoms or risk factors identified. Fall Risk IV access (20 points). Assessment: 06:08 General: Appears uncomfortable, Behavior is crying. Pain: Complains of pain in abdomen mg2 Quality of pain is described as aching, Pain began gradually. Neuro: Level of Consciousness is awake, alert, obeys commands, Oriented to person, place, time. Cardiovascular: Capillary refill < 3 seconds Patient's skin is warm and dry. Respiratory: Airway is patent Respiratory effort is even, unlabored, Respiratory pattern is regular, symmetrical. GI: Reports upper abdominal pain. : No signs and/or symptoms were reported regarding the genitourinary system. EENT: No signs and/or symptoms were reported regarding the EENT system. Derm: Skin is intact, is healthy with good turgor, Skin is pink, warm \\T\\ dry. normal. Musculoskeletal: Circulation, motion, and sensation intact. Capillary refill < 3 seconds. 07:00 General: Appears in no apparent distress. uncomfortable, Behavior is cooperative, jl7 crying. Pain: Complains of pain in abdomen. Neuro: Level of Consciousness is obeys commands, drowsy. Oriented to person, place, time. Cardiovascular: Patient's skin is warm and dry. Respiratory: Airway is patent Respiratory effort is even, unlabored, Respiratory pattern is regular, symmetrical. GI: Reports upper abdominal pain. : No signs and/or symptoms were reported regarding the genitourinary system. EENT: No signs and/or symptoms were reported regarding the EENT system. Derm: Skin is pink, warm \\T\\ dry. 07:45 Reassessment: Placed brief on pt. jl7 08:15 Reassessment: pt laying in bed with eyes closed, respirations even and unlabored, no jl7 signs of distress noted. 09:15 Reassessment: Business Office Representative/friend Mony Santo [phone]. hb 09:19 Reassessment: Mony Santo reports she is at baseline with erratic crying and jl7 sleeping in the position, ERP notifed. Vital Signs: 06:11 BP 95 / 46; Pulse 66; Resp 19 S; Temp 97.2(TE); Pulse Ox 100% on R/A; Weight 54.43 kg jd3 (R); Height 5 ft. 4 in. (162.56 cm) (R); Pain 10/10; 08:15 BP 111 / 88; Pulse 50; Resp 18; Pulse Ox 100% ; hb 09:12 BP 122 / 57; Pulse 50; Resp 15; Pulse Ox 100% ; jl7 06:11 Body Mass Index 20.60 (54.43 kg, 162.56 cm) jd3 ED Course: 06:00 Inserted saline lock: 20 gauge in left forearm, using aseptic technique. Blood mg2 collected. 06:06 Patient arrived in ED. jd3 06:08 Dequan Santillan, [place] is Primary Nurse. mg2 06:08 No provider procedures requiring assistance completed. mg2 06:11 Triage completed. jd3 06:12 Cristin Hendricks [facility]C [facility] kb 06:12 Ho Hays MD is Attending Physician. kb 06:12 Arm band placed on. jd3 06:13 Patient has correct armband on for positive identification. Bed in low position. Call j light in reach. Side rails up X2. government minister on. Pulse ox on. NIBP on. 06:57 CT Stone Protocol In Process Unspecified. EDMS 07:00 Warm blanket given. jl7 08:55 Urine collected: straight cath specimen, clear. Straight cath inserted, using sterile mh5 technique, 14 Fr. Returned clear yellow urine. Patient tolerated poorly. 08:55 EKG done, by ED staff, reviewed by Cristin SHARMA. [facility] 09:44 IV discontinued, intact, bleeding controlled, No redness/swelling at site. Pressure jl7 dressing applied. Administered Medications: 06:32 Drug: NS 0.9% 1000 ml Route: IV; Rate: 1000 ml; Site: right forearm; jd3 08:15 Follow up: Response: No adverse reaction; IV Status: Completed infusion; IV Intake: jl7 1000ml Intake: 08:15 IV: 1000ml; Total: 1000ml. jl7 Outcome: 09:33 Discharge ordered by . kb 09:44 Discharged to home via wheelchair, with friend. jl7 09:44 Condition: stable 09:44 Discharge instructions given to patient, Instructed on discharge instructions, follow up and referral plans. Demonstrated understanding of instructions, follow-up care. 09:45 Patient left the ED. jl7 Signatures: Dispatcher [employer] EDRI Cristin Hendricks FNP-C FNP-Ckb Baxter, Heather, RN RN hb Martinez, Maria 5 Elli Steward RN RN jl7 Alejandro Wallace RN RN jDequan Mccormick, RN RN mg2 Corrections: (The following items were deleted from the chart) 08:26 08:25 BP 111 / 88; Pulse 50bpm; Resp 18bpm; Pulse Ox 100%; hb hb 09:13 08:55 Straight cath inserted, using sterile technique, 16 Fr. Returned clear yellow jl7 urine. Patient tolerated poorly. mh5
--- NOTE | 2020-03-10 09:34 | EDPHYS ---
Physician Documentation [facility] Name: Rhea Carballo Age: 64 yrs Sex: Female : 1955 Arrival Date: 03/10/2020 Time: 06:06 Bed 8 Private MD: ED Physician Ho Hays HPI: 03/10 06:19 This 64 yrs old Female presents to ER via EMS with complaints of abd pain. kb 06:19 The patient presents with abdominal pain in the lower abdomen. Onset: The kb symptoms/episode began/occurred 2 day(s) ago. The symptoms do not radiate. Associated signs and symptoms: Pertinent positives: constipation. The symptoms are described as constant. Modifying factors: The symptoms are alleviated by nothing, the symptoms are aggravated by nothing. Severity of pain: At its worst the pain was moderate in the emergency department the pain is unchanged. The patient has not experienced similar symptoms in the past. The patient has not recently seen a physician. Pt reports lower abd pain, worse on the left, for 2 days. States last BM was last week, unsure of which day. Denies fever. . Historical: - Allergies: 06:13 Iodine; jd3 - Home Meds: 06:13 Folic Acid Oral [Active]; levothyroxine oral [Active]; jd3 - PMHx: 06:13 chronic back pain; Depression; GI Bleed; Hypothyroidism; SEROTONIN SYNDROME; jd3 - Immunization history:: Adult Immunizations unknown. - Social history:: Smoking status: Patient reports the use of cigarette tobacco products, unknown amount. ROS: 06:21 Constitutional: Negative for fever, chills, and weight loss, Cardiovascular: Negative kb for chest pain, palpitations, and edema, Respiratory: Negative for shortness of breath, cough, wheezing, and pleuritic chest pain, Back: Negative for injury and pain, : Negative for injury, bleeding, discharge, and swelling, MS/Extremity: Negative for injury and deformity, Skin: Negative for injury, rash, and discoloration, Neuro: Negative for headache, weakness, numbness, tingling, and seizure. 06:21 Abdomen/GI: Positive for abdominal pain, constipation, Negative for nausea, vomiting, and diarrhea. Exam: 06:21 Constitutional: This is a well developed, well nourished patient who is awake, alert, kb and in no acute distress. Head/Face: Normocephalic, atraumatic. Chest/axilla: Normal chest wall appearance and motion. Nontender with no deformity. No lesions are appreciated. Cardiovascular: Regular rate and rhythm with a normal S1 and S2. No gallops, murmurs, or rubs. Normal PMI, no JVD. No pulse deficits. Respiratory: Lungs have equal breath sounds bilaterally, clear to auscultation and percussion. No rales, rhonchi or wheezes noted. No increased work of breathing, no retractions or nasal flaring. Back: No spinal tenderness. No costovertebral tenderness. Full range of motion. Skin: Warm, dry with normal turgor. Normal color with no rashes, no lesions, and no evidence of cellulitis. MS/ Extremity: Pulses equal, no cyanosis. Neurovascular intact. Full, normal range of motion. Neuro: Awake and alert, GCS 15, oriented to person, place, time, and situation. Cranial nerves II-XII grossly intact. Motor strength 5/5 in all extremities. Sensory grossly intact. Cerebellar exam normal. Normal gait. 06:21 Abdomen/GI: Inspection: abdomen appears normal, Bowel sounds: normal, in all quadrants, Palpation: soft, in all quadrants, mild abdominal tenderness, in the right lower quadrant and left lower quadrant. 08:30 Abdomen/GI: Rectal exam: is unremarkable, rectal tone normal, Stool: brown, guaiac kb negative, hemorrhoid(s), are not appreciated. Vital Signs: 06:11 BP 95 / 46; Pulse 66; Resp 19 S; Temp 97.2(TE); Pulse Ox 100% on R/A; Weight 54.43 kg jd3 (R); Height 5 ft. 4 in. (162.56 cm) (R); Pain 10/10; 08:15 BP 111 / 88; Pulse 50; Resp 18; Pulse Ox 100% ; hb 09:12 BP 122 / 57; Pulse 50; Resp 15; Pulse Ox 100% ; jl7 06:11 Body Mass Index 20.60 (54.43 kg, 162.56 cm) jd3 MDM: 06:13 Patient medically screened. kb 06:21 Data reviewed: vital signs, nurses notes. Data interpreted: Pulse oximetry: on room air kb is 100 %. Interpretation: normal. 09:32 Counseling: I had a detailed discussion with the patient and/or guardian regarding: the kb historical points, exam findings, and any diagnostic results supporting the discharge/admit diagnosis, lab results, radiology results, the need for outpatient follow up, a family practitioner, to return to the emergency department if symptoms worsen or persist or if there are any questions or concerns that arise at home. ED course: Pt states she is doing good now. Educated on need for follow up for anemia. Verbal understanding received. RN spoke to family day care worker that will come pick pt up. . 03/10 06:17 Order name: Basic Metabolic Panel; Complete Time: 08:09 kb 03/10 06:17 Order name: CBC with Diff; Complete Time: 08:08 kb 03/10 06:17 Order name: CT Stone Protocol; Complete Time: 07:33 kb 03/10 08:29 Order name: [place] em1 03/10 08:56 Order name: Urine Dipstick--Ancillary (enter results); Complete Time: 09:10 em1 03/10 06:17 Order name: IV Saline Lock; Complete Time: 06:19 kb 03/10 06:17 Order name: Labs collected and sent; Complete Time: 08:50 kb 03/10 08:08 Order name: Urine Dipstick-Ancillary (obtain specimen); Complete Time: 08:49 kb 03/10 08:53 Order name: EKG - Nurse/Tech; Complete Time: 09:09 jl7 03/10 08:53 Order name: EKG; Complete Time: 08:54 jl7 Administered Medications: 06:32 Drug: NS 0.9% 1000 ml Route: IV; Rate: 1000 ml; Site: right forearm; jd3 08:15 Follow up: Response: No adverse reaction; IV Status: Completed infusion; IV Intake: jl7 1000ml Disposition: 03/10/20 09:33 Discharged to Home. Impression: Constipation, Anemia, unspecified. - Condition is Stable. - Discharge Instructions: Anemia, Nonspecific, Constipation, Adult, [id number]. - Medication Reconciliation Form, Thank You Letter, Antibiotic Education, Prescription Opioid Use form. - Follow up: Emergency Department; When: As needed; Reason: Worsening of condition. Follow up: Private Physician; When: 2 - 3 days; Reason: Recheck today's complaints, Continuance of care, Re-evaluation by your physician. Addendum: 03/12/2020 19:41 Co-signature as Attending Physician, Ho Hays MD. m Signatures: Dispatcher [employer] Cristin Evans, ZACHARY MATHURP-Elli Damon, RN RN jl7 Alejandro Wallace, RN RN jd3 Ho Hays MD MD mh7 Corrections: (The following items were deleted from the chart) 03/10 09:45 09:33 03/10/2020 09:33 Discharged to Home. Impression: Constipation; Anemia, jl7 unspecified. Condition is Stable. Forms are Medication Reconciliation Form, Thank You Letter, Antibiotic Education, Prescription Opioid Use. Follow up: Emergency Department; When: As needed; Reason: Worsening of condition. Follow up: Private Physician; When: 2 - 3 days; Reason: Recheck today's complaints, Continuance of care, Re-evaluation by your physician. kb
[2020-03-10 10:14] VITALS: TEMP 97.2; O2SAT 100
[2020-03-10 10:17] VITALS: BP 122/57
--- NOTE | 2020-03-11 12:26 | EKG ---
Test Date: 2020-03-10 Test Time: 08:58:30 Database Administration Manager: JANEEN MEASUREMENT RESULTS: Intervals: Rate: 50 MN: 132 QRSD: 90 QT: 502 QTc: 457 [place]: P: 65 MN: 132 QRS: 68 T: 72 INTERPRETIVE STATEMENTS: Sinus bradycardia Otherwise normal ECG Compared to ECG 01/01/2020 03:20:10 Sinus rhythm no longer present Electronically Signed On 03-11-20 12:22:34 CDT by Len Tobar
== END 2020-03-10 09:45 | disposition home or self-care (01) ==
LOC: ER 05:57
DX: K59.00 Constipation, unspecified (principal); D64.9 Anemia, unspecified; E03.9 Hypothyroidism, unspecified; Z91.048 Other nonmedicinal substance allergy status; Z72.0 Tobacco use
CPT/HCPCS: 36415; 51702; 74176; 76377; 80048; 81003; 82272; 85025; 93005; 96360; 96361; 99285; J7030

== ENCOUNTER 2020-04-16 22:29 | Emergency (ER) | payer SELFPAY ==
[2020-04-17 00:01] LABS: Absolute Lymphocytes (CBC) 0.8 K/uL (0.7-4.9); Basophils % 0.6 % (0-1.3); Lymphocytes % 12.8 % (15.3-44.8); MPV 7.7 fL (7.6-11.3); RBC Red Blood Cell Count 2.64 M/uL (3.86-4.86)
[2020-04-17 00:19] LABS: Potassium 4.2 mmol/L (3.5-5.1)
[2020-04-17] MEDS ORDERED: DIAZEPAM 10 MG/2 ML INJ SYRINGE ONE (00:19)
[2020-04-17 00:25] LABS: Thyroid Stimulating Hormone 4.82 uIU/mL (0.360-3.740)
[2020-04-17] MEDS ORDERED: PANTOPRAZOLE 40 MG INJ ONE ×2 (00:56→03:01)
[2020-04-17 01:05] LABS: Urine Blood TRACE (NEG); Urine Glucose NEGATIVE (NEG); Urine Protein NEGATIVE (NEG); Urine Specific Gravity 1.025 (1.005-1.030)
[2020-04-17 01:23] LABS: Blood Morphology Comment NOTED (NOT SEEN); Hypochromasia 2+; Platelet Estimate ADEQ; Polychromasia 1+; White Blood Cell Scan OK
[2020-04-17] MEDS ORDERED: ONDANSETRON 4 MG/2 ML VIAL ONE (01:23)
[2020-04-17] MEDS ORDERED: METRONIDAZOLE 500mg IVPB 500 MG/100 ML BAG IV ONE (03:01)
[2020-04-17] MEDS ORDERED: CIPROFLOXACIN 400mg IV 400 MG/200 ML BAG IV ONE (03:01)
--- NOTE | 2020-04-17 03:14 | ER ---
Nurse's Notes [facility] Name: Rhea Carballo Age: 64 yrs Sex: Female : 1955 Arrival Date: 04/16/2020 Time: 22:35 Bed 16 Private MD: Luiza Sky K; None, None Diagnosis: Left sided colitis with unspecified complications;Anemia, unspecified Presentation: 04/16 22:54 Chief complaint: Patient states: i have chest pain and general body weakness. denies mg2 fever, cough. Coronavirus screen: Client denies travel out of the [place] in the last 14 days. At this time, the client does not indicate any symptoms associated with coronavirus-19. Ebola Screen: No symptoms or risks identified at this time. Initial Sepsis Screen: Does the patient meet any 2 criteria? No. Patient's initial sepsis screen is negative. Does the patient have a suspected source of infection? No. Patient's initial sepsis screen is negative. Risk Assessment: Do you want to hurt yourself or someone else? Patient reports no desire to harm self or others. Onset of symptoms was March 2020. 22:54 Method Of Arrival: Wheelchair mg2 22:54 Acuity: МАРИНА 3 mg2 Triage Assessment: 22:58 General: Appears in no apparent distress. Behavior is crying. Pain: Complains of pain mg2 in chest. EENT: No signs and/or symptoms were reported regarding the EENT system. Neuro: Level of Consciousness is awake, alert, obeys commands, Oriented to person, place, time, situation. Cardiovascular: Reports chest pain, Capillary refill < 3 seconds Patient's skin is warm and dry. Respiratory: Airway is patent Respiratory effort is even, unlabored, Respiratory pattern is regular, symmetrical. GI: No signs and/or symptoms were reported involving the gastrointestinal system. : No signs and/or symptoms were reported regarding the genitourinary system. Derm: Skin is intact, is healthy with good turgor, Skin is pink, warm \T\ dry. normal. Musculoskeletal: Circulation, motion, and sensation intact. Capillary refill < 3 seconds. Historical: - Allergies: 22:58 Iodine; mg2 - Home Meds: 22:58 Folic Acid Oral [Active]; levothyroxine oral [Active]; mg2 - PMHx: 22:58 chronic back pain; Depression; GI Bleed; Hypothyroidism; SEROTONIN SYNDROME; mg2 - Immunization history:: Flu vaccine status is unknown. - Social history:: Smoking status: Patient denies any tobacco usage or history of. Patient/guardian denies using alcohol, street drugs, IV drugs. Screenin:59 Abuse screen: Denies threats or abuse. Denies injuries from another. Nutritional mg2 screening: No deficits noted. Tuberculosis screening: No symptoms or risk factors identified. Fall Risk Ambulatory Aid- None/Bed Rest/Nurse Assist (0 pts). Gait- Weak (10 pts.). Assessment: 22:59 General: see triage assessment. mg2 04/17 01:07 Reassessment: sent to ct scan. mg2 :59 Reassessment: patient said she is dry heaving. mg2 03:07 Reassessment: Patient appears in no apparent distress at this time. resting eyes closed rr5 breathing spontaneously at room air. for blood transfusion blood specimen sent to other facility for the antibody positive. 03:39 Reassessment: report given to theodore WALLACE [facility] over the phone. rr5 04:30 Reassessment: Patient appears in no apparent distress at this time. No changes from rr5 previously documented assessment. on left side lying position, vitally stable. 05:30 Reassessment: Patient appears in no apparent distress at this time. No changes from rr5 previously documented assessment. awaiting for EMS transport. 06:47 Reassessment: Patient appears in no apparent distress at this time. Patient is alert, rr5 oriented x 3, equal unlabored respirations, skin warm/dry/pink. report given to TRESSA awake alert no complaints made, vitally stable. Patient denies pain at this time. Patient states feeling better. Patient states symptoms have improved. Vital Signs: 04/16 22:54 BP 122 / 54; Pulse 68; Resp 18; Temp 98.7; Pulse Ox 100% on R/A; Weight 65.77 kg; mg2 Height 5 ft. 7 in. (170.18 cm); Pain 04/27; 04/17 00:55 BP 97 / 53; Pulse 54; Resp 18; Pulse Ox 100% on R/A; mg2 01:18 BP 100 / 46; Pulse 56; Resp 18; Pulse Ox 100% on R/A; mg2 02:04 BP 138 / 59; Pulse 54; Resp 18; Pulse Ox 100% on R/A; mg2 03:06 BP 147 / 58; Pulse 56; Resp 16; Pulse Ox 99% ; rr5 03:39 BP 147 / 58; Pulse 59; Resp 16; Temp 98.5; Pulse Ox 100% ; rr5 04:50 BP 129 / 73; Pulse 65; Resp 15; Pulse Ox 100% ; rr5 05:48 BP 128 / 61; Pulse 70; Resp 14; Pulse Ox 99% ; rr5 06:35 BP 145 / 67; Pulse 62; Resp 17; Temp 98.4; Pulse Ox 97% ; rr5 04/16 22:54 Body Mass Index 22.71 (65.77 kg, 170.18 cm) mg2 ED Course: 04/16 22:35 Patient arrived in ED. es 22:36 None, None is Private Physician. es 22:36 Luiza Sky MD is Private Physician. es 22:38 Dequan Santillan RN is Primary Nurse. mg2 22:41 Abeba Kelley FNP-C [facility]. snw 22:41 Mino Morrison MD is Attending Physician. snw 22:57 Triage completed. mg2 22:58 Arm band placed on. mg2 22:59 Patient has correct armband on for positive identification. mg2 22:59 No provider procedures requiring assistance completed. mg2 04/17 00:00 Inserted saline lock: 20 gauge in left antecubital area, using aseptic technique. Blood mg2 collected. 00:24 Notified Nurse Practitioner and/or Physician Collection Development Librarian of a critical lab result(s), Hgb sg 5.7, Hematocrit 19.0. 01:33 Chest Abd Pelvis Wo Con In Process Unspecified. EDMS 02:38 Inserted saline lock: 20 gauge in left forearm, using aseptic technique. rr5 05:49 Patient transferred, IV remains in place. intact, No redness/swelling at site. rr5 Administered Medications: 00:13 Drug: Valium 5 mg Route: IM; Site: left gluteus; mg2 01:06 Follow up: Response: No adverse reaction mg2 00:54 Drug: ProTONIX 40 mg Route: IVP; Site: left antecubital; mg2 01:06 Follow up: Response: No adverse reaction mg2 01:18 Drug: Zofran (Ondansetron) 4 mg Route: IVP; Site: left antecubital; mg2 01:30 Follow up: Response: No adverse reaction; Nausea is decreased mg2 03:00 Drug: ProTONIX 40 mg Route: IVP; Site: left antecubital; rr5 04:00 Follow up: Response: No adverse reaction rr5 03:03 Dru mg of (Flagyl 500 mg, NS 0.9% 100 ml) Volume: 100 ml; Route: IVPB; Rate: 200 rr5 ml/hr; Infused Over: 30 mins; Site: left antecubital; 03:30 Follow up: Response: No adverse reaction; IV Status: Completed infusion; IV Intake: rr5 100ml 03:49 Drug: Cipro 400 mg Volume: 200 ml; Route: IVPB; Infused Over: 60 mins; Site: left rr5 forearm; 04:40 Follow up: Response: No adverse reaction; IV Status: Completed infusion; IV Intake: rr5 200ml Intake: 03:30 IV: 100ml; Total: 100ml. rr5 04:40 IV: 200ml; Total: 300ml. rr5 Outcome: 03:14 ER care complete, transfer ordered by . snluis 03:30 Instructed on the need for admit. rr5 06:47 Transferred by ground EMS to [facility], Transfer form completed. rr5 06:47 Condition: stable 06:48 Patient left the ED. rr5 Signatures: Dispatcher [employer] Martin Britt RN RN sg Abeba Kelley, OPERATIONAL TEST MECHANIC-C OPERATIONAL TEST MECHANIC-CsnMaura Justin Michele, RN RN mg2 Jake Hu RN RN rr5 Corrections: (The following items were deleted from the chart) 01:07 01:06 Reassessment: Patient appears in no apparent distress at this time. Patient mg2 and/or family updated on plan of care and expected duration. Pain level reassessed. looks pale mg2
--- NOTE | 2020-04-17 03:14 | EDPHYS ---
Physician Documentation [facility] Name: Rhea Carballo Age: 64 yrs Sex: Female : 1955 Arrival Date: 04/16/2020 Time: 22:35 Bed 16 Private MD: Luiza Sky K; None, None ED Physician Mino Morrison HPI: 04/16 22:45 This 64 yrs old Female presents to ER via Wheelchair with complaints of snw General Weakness, dont feel good. 22:45 Onset: The symptoms/episode began/occurred gradually. Associated signs and symptoms: snw Pertinent positives: weakness, chest pain. Modifying factors: The patient symptoms are alleviated by nothing, the patient symptoms are aggravated by nothing, + nausea. The patient has experienced similar episodes in the past. The patient has been recently seen by a physician: the patient's primary care provider, Dr. Sky yesterday, orders to check thyroid 2nd to fatigue, weakness per pt report. Historical: - Allergies: 22:58 Iodine; mg2 - Home Meds: 22:58 Folic Acid Oral [Active]; levothyroxine oral [Active]; mg2 - PMHx: 22:58 chronic back pain; Depression; GI Bleed; Hypothyroidism; SEROTONIN SYNDROME; mg2 - Immunization history:: Flu vaccine status is unknown. - Social history:: Smoking status: Patient denies any tobacco usage or history of. Patient/guardian denies using alcohol, street drugs, IV drugs. ROS: 22:45 Eyes: Negative for injury, pain, redness, and discharge, ENT: Negative for injury, snw pain, and discharge, Neck: Negative for injury, pain, and swelling, Cardiovascular: Negative for palpitations, and edema, chest pain Respiratory: Negative for shortness of breath, cough, wheezing, and pleuritic chest pain. 22:45 Back: Negative for injury and pain, : Negative for injury, bleeding, discharge, and swelling, MS/Extremity: Negative for injury and deformity, Skin: Negative for injury, rash, and discoloration. 22:45 Constitutional: Positive for body aches, malaise. 22:45 Abdomen/GI: Positive for abdominal pain, nausea. 22:45 Neuro: Positive for weakness. Exam: 22:50 Neuro: Orientation: is normal, Mentation: is normal, Gait: not tested. seizure snw activity, is not displayed by the patient. 22:50 Constitutional: This is a well developed, well nourished patient who is awake, alert, snw and crying. Head/Face: Normocephalic, atraumatic. Eyes: Pupils equal round and reactive to light, extra-ocular motions intact. Lids and lashes normal. Conjunctiva and sclera are non-icteric and not injected, pale. Cornea within normal limits. Periorbital areas with no swelling, redness, or edema. ENT: Nares patent. No nasal discharge, no septal abnormalities noted. Tympanic membranes are normal and external auditory canals are clear. Oropharynx with no redness, swelling, or masses, exudates, or evidence of obstruction, uvula midline. Mucous membranes moist. Neck: Trachea midline, no thyromegaly or masses palpated, and no cervical lymphadenopathy. Supple, full range of motion without nuchal rigidity, or vertebral point tenderness. No Meningismus. Chest/axilla: Normal chest wall appearance and motion. Nontender with no deformity. No lesions are appreciated. Cardiovascular: Regular rate and rhythm with a normal S1 and S2. No gallops, murmurs, or rubs. Normal PMI, no JVD. No pulse deficits. Respiratory: Lungs have equal breath sounds bilaterally, clear to auscultation and percussion. No rales, rhonchi or wheezes noted. No increased work of breathing, no retractions or nasal flaring. Abdomen/GI: Soft with normal bowel sounds. No distension or tympany. No guarding or rebound. +epigastric tenderness. No evidence of tenderness throughout lower abdomen. Back: No spinal tenderness. No costovertebral tenderness. Full range of motion. Skin: Warm, dry with normal turgor. Pallor with no rashes, no lesions, and no evidence of cellulitis. MS/ Extremity: Pulses equal, no cyanosis. Neurovascular intact. Full, normal range of motion. Vital Signs: 22:54 BP 122 / 54; Pulse 68; Resp 18; Temp 98.7; Pulse Ox 100% on R/A; Weight 65.77 kg; mg2 Height 5 ft. 7 in. (170.18 cm); Pain 8/10; 04/17 00:55 BP 97 / 53; Pulse 54; Resp 18; Pulse Ox 100% on R/A; mg2 01:18 BP 100 / 46; Pulse 56; Resp 18; Pulse Ox 100% on R/A; mg2 02:04 BP 138 / 59; Pulse 54; Resp 18; Pulse Ox 100% on R/A; mg2 03:06 BP 147 / 58; Pulse 56; Resp 16; Pulse Ox 99% ; rr5 03:39 BP 147 / 58; Pulse 59; Resp 16; Temp 98.5; Pulse Ox 100% ; rr5 04:50 BP 129 / 73; Pulse 65; Resp 15; Pulse Ox 100% ; rr5 05:48 BP 128 / 61; Pulse 70; Resp 14; Pulse Ox 99% ; rr5 06:35 BP 145 / 67; Pulse 62; Resp 17; Temp 98.4; Pulse Ox 97% ; rr5 04/16 22:54 Body Mass Index 22.71 (65.77 kg, 170.18 cm) mg2 MDM: 04/16 22:44 Patient medically screened. snw 04/17 02:44 Data reviewed: vital signs, nurses notes. Data interpreted: Pulse oximetry: on room air snw is 100 %. Interpretation: normal. Counseling: I had a detailed discussion with the patient and/or guardian regarding: the historical points, exam findings, and any diagnostic results supporting the discharge/admit diagnosis, lab results, radiology results, the need to transfer to another facility, [facility] does not immediately have the required specialist. 03:07 Physician consultation: Dr. Rey was called at 03:08, was contacted at 03:08, snw regarding regarding transfer, to [facility]. Dr. Rey kindly accepts pt in transfer. 04/16 23:42 Order name: CBC with Diff; Complete Time: 01:25 snw 04/16 23:42 Order name: TSH; Complete Time: 00:41 snw 04/16 23:42 Order name: CPK; Complete Time: 00:41 snw 04/16 23:42 Order name: Chem 7; Complete Time: 00:41 snw 04/16 23:55 Order name: Urine Dipstick--Ancillary (enter results); Complete Time: 01:20 sg 04/17 00:24 Order name: CBC Smear Scan; Complete Time: 01:25 EDMS 04/17 00:27 Order name: T4 Free; Complete Time: 00:41 EDMS 04/17 00:29 Order name: TS mg2 04/17 01:42 Order name: Antibody Identification EDMS 04/17 00:08 Order name: EKG; Complete Time: 00:08 snw 04/17 00:08 Order name: EKG - Nurse/Tech; Complete Time: 00:10 snw 04/17 00:50 Order name: Chest Abd Pelvis Wo Con EDMS Administered Medications: 00:13 Drug: Valium 5 mg Route: IM; Site: left gluteus; mg2 01:06 Follow up: Response: No adverse reaction mg2 00:54 Drug: ProTONIX 40 mg Route: IVP; Site: left antecubital; mg2 01:06 Follow up: Response: No adverse reaction mg2 01:18 Drug: Zofran (Ondansetron) 4 mg Route: IVP; Site: left antecubital; mg2 01:30 Follow up: Response: No adverse reaction; Nausea is decreased mg2 03:00 Drug: ProTONIX 40 mg Route: IVP; Site: left antecubital; rr5 04:00 Follow up: Response: No adverse reaction rr5 03:03 Dru mg of (Flagyl 500 mg, NS 0.9% 100 ml) Volume: 100 ml; Route: IVPB; Rate: 200 rr5 ml/hr; Infused Over: 30 mins; Site: left antecubital; 03:30 Follow up: Response: No adverse reaction; IV Status: Completed infusion; IV Intake: rr5 100ml 03:49 Drug: Cipro 400 mg Volume: 200 ml; Route: IVPB; Infused Over: 60 mins; Site: left rr5 forearm; 04:40 Follow up: Response: No adverse reaction; IV Status: Completed infusion; IV Intake: rr5 200ml Disposition: 06:49 Co-signature as Attending Physician, Mino Morrison MD. rn Disposition: 04/17/20 03:[address] [facility]. Diagnosis are Left sided colitis with unspecified complications, Anemia, unspecified. - Reason for transfer: Higher level of care. - Accepting physician is Dr. Prado. - Condition is Stable. - Problem is an acute exacerbation. - Symptoms have worsened. Signatures: Dispatcher [employer] EDUT Abeba Kelley, TECHNICAL WRITER-C TECHNICAL WRITER-Csnw Morrison, MD MD donovan Herzog Michele, RN RN mg2 Roque, Raymond, RN RN rr5 Corrections: (The following items were deleted from the chart) 00:50 00:48 CT CHEST,ABD,PELVIS W/O ordered. [facility] :38 01:27 PACKED RBC LEUKORED -1+BB.LAB.BRZ ordered. [facility] EDUT 38 01:27 ABO/RH typing ordered. [facility] EDUT 01:27 Antibody Screen ordered. [facility] 02:44 02:40 Constitutional: This is a well developed, well nourished patient who is awake, snw alert, and crying. Head/Face: Normocephalic, atraumatic. Eyes: Pupils equal round and reactive to light, extra-ocular motions intact. Lids and lashes normal. Conjunctiva and sclera are non-icteric and not injected, pale. Cornea within normal limits. Periorbital areas with no swelling, redness, or edema. ENT: Nares patent. No nasal discharge, no septal abnormalities noted. Tympanic membranes are normal and external auditory canals are clear. Oropharynx with no redness, swelling, or masses, exudates, or evidence of obstruction, uvula midline. Mucous membranes moist. Neck: Trachea midline, no thyromegaly or masses palpated, and no cervical lymphadenopathy. Supple, full range of motion without nuchal rigidity, or vertebral point tenderness. No Meningismus. Chest/axilla: Normal chest wall appearance and motion. Nontender with no deformity. No lesions are appreciated. Cardiovascular: Regular rate and rhythm with a normal S1 and S2. No gallops, murmurs, or rubs. Normal PMI, no JVD. No pulse deficits. Respiratory: Lungs have equal breath sounds bilaterally, clear to auscultation and percussion. No rales, rhonchi or wheezes noted. No increased work of breathing, no retractions or nasal flaring. Abdomen/GI: Soft with normal bowel sounds. No distension or tympany. No guarding or rebound. +epigastric tenderness. No evidence of tenderness throughout lower abdomen. Back: No spinal tenderness. No costovertebral tenderness. Full range of motion. Skin: Warm, dry with normal turgor. Pallor with no rashes, no lesions, and no evidence of cellulitis. MS/ Extremity: Pulses equal, no cyanosis. Neurovascular intact. Full, normal range of motion. snw 02:44 02:40 Neuro: Orientation: is normal, Mentation: is normal, Gait: not tested. seizure snw activity, is not displayed by the patient, snw 06:48 03:14 04/17/2020 03:[address] [facility]. rr5 Diagnosis is Left sided colitis with unspecified complications; Anemia, unspecified. Reason for transfer: Higher level of care. Accepting physician is Dr. Prado. Condition is Stable. Problem is an acute exacerbation. Symptoms have worsened. snw
[2020-04-17 07:02] VITALS: TEMP 98.5
[2020-04-17 07:05] VITALS: BP 128/61; O2SAT 99
--- NOTE | 2020-04-17 11:31 | RAD REPORT ---
EXAM DESCRIPTION: CT - Chest Abd Pelvis Wo Con - 04/17/2020 2:26 am CLINICAL HISTORY: Chest Pain, Anemia TECHNIQUE: Contiguous axial images obtained through the chest without IV contrast. Coronal and sagit antonia reformatted images provided. This exam was performed according to our departmental dose-optimization program, which includes autom ated exposure control, adjustment of the mA and/or kV according to patient size and/or use of iterati ve reconstruction technique. COMPARISON: 11/06/2019 FINDINGS: Lungs: No focal consolidation. Airways are patent. Pleura: No effusion. No pneumothorax. Heart and pericardium: The heart is mildly enlarged. Coronary artery and mitral annular calcification . The left ventricular wall is mildly hyperdense. No pericardial effusion. Mediastinum and stephie: No pathologically enlarged lymph nodes. Lower neck and chest wall: Unremarkable Vessels: Minimal atherosclerotic disease. No thoracic aortic aneurysm. Bones: Multilevel spondylosis. Remote mid sternal fracture with nonunion. Remote anterior compression deformities at T7, T8, T9, T10 and T11. Remote left anterior 5th and 6th rib fractures. No acute fra cture. IMPRESSION: 1. No focal infiltrate. 2. The left ventricular wall is mildly hyperdense which can be seen in the setting of anemia. 3. Other findings as above. EXAM DESCRIPTION: CT ABDOMEN PELVIS WITHOUT IV CONTRAST CLINICAL HISTORY: Chest Pain, Anemia TECHNIQUE: Contiguous axial images obtained through the abdomen and pelvis without IV contrast. Dante nal and sagittal reformatted images were provided. This exam was performed according to our departmental dose-optimization program, which includes autom ated exposure control, adjustment of the mA and/or kV according to patient size and/or use of iterati ve reconstruction technique. COMPARISON: 03/10/2020 FINDINGS: Liver: The liver is enlarged. Gallbladder and biliary system: The gallbladder is contracted. Pancreas: Grossly unremarkable Spleen: Grossly unremarkable Adrenals: Unremarkable Kidneys: Bilateral cysts including hyperdense cysts similar to the prior. An index exophytic cyst at the posterior midpole on the right measures 1.6 cm. 4 calculi within the right renal collecting syste m, the largest at the lower pole collecting system measuring 10 mm and 2 mm calculus within the upper pole collecting system on the left redemonstrated. No hydronephrosis. Bowel: The proximal to mid large bowel appears thickened. Mild infiltrative changes within the ari lonic fat.. Colonic diverticula without adjacent inflammatory change. No obstruction. Appendix: Normal caliber appendix. No findings to suggest acute appendicitis. Urinary bladder: Unremarkable Reproductive: Unremarkable as visualized Lymph nodes: No pathologically enlarged lymph nodes. Peritoneum: No focal fluid collection. No free air. Vessels: Mild atherosclerotic disease. No abdominal aortic aneurysm. Abdominal wall: Unremarkable Bones: Multilevel spondylosis. No acute fracture. Stable grade 1 anterolisthesis of L5 on S1. IMPRESSION: 1. Findings suggestive of mild nonspecific colitis. 2. Other findings as above. Electronically signed by: Ashley Brown MD 04/17/2020 1:59 AM CDT Due to temporary technical issues with the PACS/Fluency reporting system, reports are being signed by the in house radiologist without review as a courtesy to ensure prompt reporting. The interpreting r adiologist is fully responsible for the content of the report.
== END 2020-04-17 06:48 | disposition short-term general hospital (02) ==
LOC: ER 22:29
DX: K51.519 Left sided colitis with unspecified complications (principal); D64.9 Anemia, unspecified; E03.9 Hypothyroidism, unspecified; Z91.048 Other nonmedicinal substance allergy status
CPT/HCPCS: 36415; 71250; 74176; 80048; 81003; 82550; 84439; 84443; 85025; 86850; 86870; 86900; 86901; 86922; 93005; 96365; 96367; 96372; 96375; 99285; C9113; J0744; J2405; J3360

== ENCOUNTER 2020-04-23 16:01 | Emergency (ER) | payer SELFPAY ==
--- NOTE | 2020-04-23 18:12 | RAD REPORT ---
EXAM DESCRIPTION: CT - Head Brain Wo Cont - 04/23/2020 6:05 pm CLINICAL HISTORY: Confused;Fever Headache, drowsiness COMPARISON: <Comparisons> TECHNIQUE: All CT scans are performed using dose optimization technique as appropriate and may inclu de automated exposure control or mA/KV adjustment according to patient size. FINDINGS: No intracranial hemorrhage, hydrocephalus or extra-axial fluid collection.Moderate general ized brain atrophy.No areas of brain edema or evidence of midline shift. The paranasal sinuses and mastoids are clear. The calvarium is intact. IMPRESSION: No acute intracranial abnormality.
[2020-04-23] MEDS ORDERED: NA CHLORIDE 0.9% 500 ML ONE (19:28)
[2020-04-23 19:30] LABS: Absolute Lymphocytes (CBC) 1.2 K/uL (0.7-4.9); Hematocrit 26.8 % (36.0-45.0); Lymphocytes % 10.9 % (15.3-44.8); MPV 7.7 fL (7.6-11.3); RBC Red Blood Cell Count 3.51 M/uL (3.86-4.86)
[2020-04-23 19:34] LABS: Protime INR 1.17
[2020-04-23 19:37] LABS: ALT/SGPT 16 U/L (12-78); AST/SGOT 20 U/L (15-37); Albumin 3.6 g/dL (3.4-5.0); Alkaline Phosphatase 76 U/L (45-117); BUN Blood Urea Nitrogen 21 mg/dL (7-18); Bicarbonate 23 mmol/L (21-32); Bilirubin Direct 0.2 mg/dL (0-0.2); Bilirubin Total 0.6 mg/dL (0.2-1.0); Glucose Level 92 mg/dL (74-106); Protein, Total 7.3 g/dL (6.4-8.2); Sodium Level 143 mmol/L (136-145)
[2020-04-23 19:40] LABS: Potassium 2.9 mmol/L (3.5-5.1)
[2020-04-23] MEDS ORDERED: POTASSIUM CL SA 10 MEQ TAB PO ONE (20:23)
--- NOTE | 2020-04-23 21:02 | RAD REPORT ---
EXAM DESCRIPTION: RAD - Chest Single View - 04/23/2020 8:54 pm CLINICAL HISTORY: FEVER Chest pain. COMPARISON: Chest Single View dated 11/06/2019; Chest Single View dated 06/15/2019; Chest Single View dated 06/09/2019; CHEST PA AND LAT 2 VIEW dated 04/12/2013 FINDINGS: Portable technique limits examination quality. Bilateral interstitial lung markings are seen with a focal airspace opacity in the left lung base. Th e heart is normal in size. No displaced fractures. IMPRESSION: Left lower lobe pneumonia suspected superimposed on a mild bronchitis pattern.
[2020-04-23] MEDS ORDERED: CEFTRIAXONE/SWI 1gm 1 GM/10 ML SYR ONE (22:38)
[2020-04-23] MEDS ORDERED: NA CHLORIDE 0.9% 250 ML ONE (22:38)
[2020-04-23] MEDS ORDERED: AZITHROMYCIN 500 MG INJ IVPB ONE (22:38)
--- NOTE | 2020-04-23 23:43 | ER ---
Nurse's Notes [facility] Name: Rhea Carballo Age: 64 yrs Sex: Female : 1955 Arrival Date: 04/23/2020 Time: 16:06 Bed 20 Private MD: Diagnosis: Pneumonia;Hypokalemia Presentation: 04/23 16:11 Chief complaint: EMS states: EMS called for unresponsive person found in vehicle, pt ph responsive upon EMS arrival, noted to have jerking movements, rambling speech, also febrile w/ T 102.1, pt reports hx of serotonin syndrome, states that she was recently tested for COVID, negative results, other VSS. Coronavirus screen: Client denies travel out of the [place] in the last 14 days. fever, The client reports previous COVID testing was negative. Ebola Screen: No symptoms or risks identified at this time. Initial Sepsis Screen: Does the patient meet any 2 criteria? Temp <36.0*C (96.8*F)) or > 38.3*C (100.9*F). Does the patient have a suspected source of infection? No. Patient's initial sepsis screen is negative. Risk Assessment: Do you want to hurt yourself or someone else? Patient reports no desire to harm self or others. Onset of symptoms was April 23, 2020. 16:11 Method Of Arrival: EMS: [facility] 16:11 Acuity: МАРИНА 3 ph Historical: - Allergies: 16:07 Iodine; ph - Home Meds: 16:07 Folic Acid Oral [Active]; levothyroxine oral [Active]; ph - PMHx: 16:07 chronic back pain; Depression; GI Bleed; Hypothyroidism; SEROTONIN SYNDROME; ph - Immunization history:: Adult Immunizations unknown. - Social history:: Smoking status: Patient/guardian denies using tobacco, Stopped _ months ago 6. Screenin:08 Abuse screen: Denies threats or abuse. Denies injuries from another. Nutritional ph screening: No deficits noted. Tuberculosis screening: No symptoms or risk factors identified. Fall Risk None identified. Assessment: 16:30 General: Appears in no apparent distress. comfortable, slender, Behavior is calm, ph cooperative, appropriate for age, Denies fever, feeling ill. Pain: Complains of pain in back of neck. Neuro: Level of Consciousness is awake, alert, obeys commands, Oriented to person, place, time, situation, Speech is normal, Intact jerking movements noted to upper extremities, pt reports hx of serotonin syndrome. Cardiovascular: Denies chest pain, lightheadedness, nausea, palpitations, shortness of breath, vomiting, Capillary refill < 3 seconds in bilateral fingers Patient's skin is warm and dry. Respiratory: Airway is patent Respiratory effort is even, unlabored, Respiratory pattern is regular, symmetrical. GI: No signs and/or symptoms were reported involving the gastrointestinal system. Derm: Skin is intact, Skin is pink, warm \T\ dry. Musculoskeletal: Circulation, motion, and sensation intact. Range of motion: intact in all extremities. 18:00 Reassessment: Patient appears in no apparent distress at this time. Patient and/or ph family updated on plan of care and expected duration. Pain level reassessed. Patient is alert, oriented x 3, equal unlabored respirations, skin warm/dry/pink. Pt resting w/ eyes closed, even and unlabored respirations, no extrapyramidal movements noted while pt asleep. 19:28 General: Appears in no apparent distress. comfortable, slender, well groomed, well ao developed, Behavior is calm, cooperative, appropriate for age. Pain: Denies pain. Neuro: Level of Consciousness is lethargic, Sleeping. Cardiovascular: Denies chest pain, lightheadedness, nausea, palpitations, shortness of breath, vomiting, Capillary refill < 3 seconds Patient's skin is warm and dry. Respiratory: Airway is patent Respiratory effort is even, unlabored, Respiratory pattern is regular, symmetrical. GI: No signs and/or symptoms were reported involving the gastrointestinal system. Derm: Skin is intact, Skin is pink, warm \T\ dry. Musculoskeletal: Circulation, motion, and sensation intact. Range of motion: intact in all extremities. 20:21 Reassessment: Patient and/or family updated on plan of care and expected duration. Pain ao level reassessed. Patient is alert, oriented x 3, equal unlabored respirations, skin warm/dry/pink. Patient is awake and following instructions. Pt able to swallow pills. 22:23 Reassessment: Patient appears in no apparent distress at this time. Patient and/or ao family updated on plan of care and expected duration. Pain level reassessed. Patient is alert, oriented x 3, equal unlabored respirations, skin warm/dry/pink. 04/24 00:29 Reassessment: Called son to come and pickle maker patient. Son states that would pickle maker his ao mom Patient denies pain at this time. 00:32 Reassessment: Patient appears in no apparent distress at this time. DC instructions ao given to patient and son. Patient agree with POC and to follow up. Vital Signs: 04/23 16:08 BP 137 / 63; Pulse 87; Resp 18; Temp 101.9(O); Pulse Ox 100% on R/A; Weight 64.86 kg; ph Height 5 ft. 7 in. (170.18 cm); 17:30 BP 128 / 76; Pulse 81; Resp 18; Pulse Ox 99% on R/A; ph 18:53 Pulse 76; Resp 18; Temp 99.7(O); Pulse Ox 100% on R/A; ph 20:21 BP 138 / 82; Pulse 66; Resp 18; Temp 98.8(O); Pulse Ox 98% on R/A; Pain 0/10; ao 22:23 BP 131 / 71; Pulse 71; Resp 18; Pulse Ox 98% ; ao 08 00:30 BP 132 / 70; Pulse 70; Resp 18; Temp 98.5(O); Pulse Ox 95% on R/A; Pain 0/10; ao 08 16:08 Body Mass Index 22.40 (64.86 kg, 170.18 cm) ph ED Course: 04/23 16:06 Patient arrived in ED. ph 16:15 Triage completed. ph 16:15 Arm band placed on. ph 16:16 Patient has correct armband on for positive identification. Placed in gown. Bed in low ph position. Call light in reach. Side rails up X2. Pulse ox on. NIBP on. Door closed. Noise minimized. 16:37 Dafne Menezes, [place] is Primary Nurse. ph 16:59 Jaya Aleman MD is Attending Physician. kdr 18:54 Initial lab(s) drawn, by tx, sent to lab. Inserted saline lock: 20 gauge in right ph forearm, using aseptic technique. Blood collected. 19:06 Attending Physician role handed off by Jaya Aleman MD [facility] 19:06 Ho Hays MD is Attending Physician. [facility] 19:41 Notified ED physician of a critical lab result(s). Potassium of 2.9 Dr Hays notified. bb 04/24 00:31 No provider procedures requiring assistance completed. IV discontinued, intact, ao bleeding controlled, No redness/swelling at site. Pressure dressing applied. Administered Medications: 04/23 19:22 Drug: NS 0.9% 500 ml Route: IV; Rate: bolus; Site: left forearm; ao 23:00 Follow up: IV Status: Completed infusion; IV Intake: 500ml ao 20:19 Drug: Potassium Chloride 40 mEq Route: PO; ao 04/24 00:33 Follow up: Response: No adverse reaction ao 04/23 20:21 Not Given (No fever 98.8 oral): Tylenol 1000 mg PO once ao 22:40 Drug: Rocephin - (cefTRIAXone) 1 grams Route: IVPB; Infused Over: 30 mins; Site: left ao antecubital; 04/24 00:33 Follow up: IV Status: Completed infusion ao 04/23 22:45 Drug: Zithromax 500 mg Route: IVPB; Infused Over: 1 hrs; Site: left antecubital; ao 04/24 00:33 Follow up: IV Status: Completed infusion ao Intake: 04/23 23:00 IV: 500ml; Total: 500ml. ao Outcome: 23:43 Discharge ordered by . [facility] 04/24 00:31 Discharged to home ambulatory. ao Condition: stable Discharge instructions given to patient, Instructed on discharge instructions, follow up and referral plans. Demonstrated understanding of instructions, follow-up care, medications, Prescriptions given X 2. 01:16 Patient left the ED. ao Signatures: Jaya Aleman MD MD [facility] [address] Chacha Glover RN RN Dafne Arias RN RN Gen Louis RN RN Ho Nelson MD MD [facility]
--- NOTE | 2020-04-23 23:43 | EDPHYS ---
Physician Documentation [facility] Name: Rhea Carballo Age: 64 yrs Sex: Female : 1955 Arrival Date: 04/23/2020 Time: 16:06 Bed 20 Private MD: ED Physician Ho Hays HPI: 04/23 22:16 This 64 yrs old Female presents to ER via EMS with complaints of Unresponsive.mh7 22:16 The patient presents with decreased responsiveness. Onset: The symptoms/episode mh7 began/occurred today. Possible causes: drug use, alcohol. Associated signs and symptoms: Pertinent negatives: abdominal pain, agitation, ataxia, blurred vision, chest pain, combativeness, confusion, diaphoresis, diarrhea, dizziness, headache, lightheadedness, nausea, numbness, palpitations, seizure, shortness of breath, tingling, vertigo, vomiting, weakness. Current symptoms: In the emergency department the patient's symptoms have resolved, the patient is alert and fully oriented, has normal speech, has normal responsiveness, has no confusion. 22:18 Patient reports sleeping in her car after driving around for a while. She denies any mh7 injuries, headache, chest pain, abdominal pain, SOB, nausea, vomiting, fever, dizziness, numbness/tingling, or weakness.. Historical: - Allergies: 16:07 Iodine; ph - Home Meds: 16:07 Folic Acid Oral [Active]; levothyroxine oral [Active]; ph - PMHx: 16:07 chronic back pain; Depression; GI Bleed; Hypothyroidism; SEROTONIN SYNDROME; ph - Immunization history:: Adult Immunizations unknown. - Social history:: Smoking status: Patient/guardian denies using tobacco, Stopped _ months ago 6. ROS: 22:18 Eyes: Negative for injury, pain, redness, and discharge, ENT: Negative for injury, mh7 pain, and discharge, Neck: Negative for injury, pain, and swelling, Cardiovascular: Negative for chest pain, palpitations, and edema, Respiratory: Negative for shortness of breath, cough, wheezing, and pleuritic chest pain, Abdomen/GI: Negative for abdominal pain, nausea, vomiting, diarrhea, and constipation, Back: Negative for injury and pain, : Negative for injury, bleeding, discharge, and swelling, MS/Extremity: Negative for injury and deformity, Skin: Negative for injury, rash, and discoloration, Psych: Negative for depression, anxiety, suicide ideation, homicidal ideation, and hallucinations, Allergy/Immunology: Negative for hives, rash, and allergies, Endocrine: Negative for neck swelling, polydipsia, polyuria, polyphagia, and marked weight changes, Hematologic/Lymphatic: Negative for swollen nodes, abnormal bleeding, and unusual bruising. Exam: 22:18 Constitutional: This is a well developed, well nourished patient who is awake, alert, mh7 and in no acute distress. Head/Face: Normocephalic, atraumatic. Eyes: Pupils equal round and reactive to light, extra-ocular motions intact. Lids and lashes normal. Conjunctiva and sclera are non-icteric and not injected. Cornea within normal limits. Periorbital areas with no swelling, redness, or edema. Neck: Trachea midline, no thyromegaly or masses palpated, and no cervical lymphadenopathy. Supple, full range of motion without nuchal rigidity, or vertebral point tenderness. No Meningismus. Chest/axilla: Normal chest wall appearance and motion. Nontender with no deformity. No lesions are appreciated. Cardiovascular: Regular rate and rhythm with a normal S1 and S2. No gallops, murmurs, or rubs. Normal PMI, no JVD. No pulse deficits. Respiratory: Lungs have equal breath sounds bilaterally, clear to auscultation and percussion. No rales, rhonchi or wheezes noted. No increased work of breathing, no retractions or nasal flaring. Abdomen/GI: Soft, non-tender, with normal bowel sounds. No distension or tympany. No guarding or rebound. No evidence of tenderness throughout. Back: No spinal tenderness. No costovertebral tenderness. Full range of motion. Skin: Warm, dry with normal turgor. Normal color with no rashes, no lesions, and no evidence of cellulitis. MS/ Extremity: Pulses equal, no cyanosis. Neurovascular intact. Full, normal range of motion. Neuro: Awake and alert, GCS 15, oriented to person, place, time, and situation. Cranial nerves II-XII grossly intact. Motor strength 5/5 in all extremities. Sensory grossly intact. Cerebellar exam normal. Normal gait. Psych: Awake, alert, with orientation to person, place and time. Behavior, mood, and affect are within normal limits. Vital Signs: 16:08 BP 137 / 63; Pulse 87; Resp 18; Temp 101.9(O); Pulse Ox 100% on R/A; Weight 64.86 kg; ph Height 5 ft. 7 in. (170.18 cm); 17:30 BP 128 / 76; Pulse 81; Resp 18; Pulse Ox 99% on R/A; ph 18:53 Pulse 76; Resp 18; Temp 99.7(O); Pulse Ox 100% on R/A; ph 20:21 BP 138 / 82; Pulse 66; Resp 18; Temp 98.8(O); Pulse Ox 98% on R/A; Pain 0/10; ao 22:23 BP 131 / 71; Pulse 71; Resp 18; Pulse Ox 98% ; ao 04/24 00:30 BP 132 / 70; Pulse 70; Resp 18; Temp 98.5(O); Pulse Ox 95% on R/A; Pain 0/10; ao 04/23 16:08 Body Mass Index 22.40 (64.86 kg, 170.18 cm) ph MDM: 04/23 23:41 Differential Diagnosis: electrolyte abnormality, alcohol intoxication, hypoglycemia, mh7 intracranial bleed, overdose, pneumonia, sepsis, UTI, volume depletion. Data reviewed: vital signs, nurses notes, EMS record, lab test result(s), CBC, drug level(s), electrolytes, radiologic studies, CT scan, plain films. Data interpreted: Pulse oximetry: on room air is 98 %. Interpretation: normal. Counseling: I had a detailed discussion with the patient and/or guardian regarding: the historical points, exam findings, and any diagnostic results supporting the discharge/admit diagnosis, lab results, radiology results, the need for outpatient follow up, to return to the emergency department if symptoms worsen or persist or if there are any questions or concerns that arise at home. Response to treatment: the patient's symptoms have resolved after treatment, the patient's blood pressure is in an acceptable range, mental status has returned to baseline, the patient no longer shows bradycardia, the patient is not short of breath, the patient is not tachycardic, the patient's pain is gone, the patient's temperature has normalized. 23:43 Patient medically screened. [facility] 04/23 17:23 Order name: Acetaminophen kdr 04/23 17:23 Order name: Basic Metabolic Panel kdr 08 17:23 Order name: CBC with Diff kdr 04/23 17:23 Order name: ETOH Level kdr 04/23 17:23 Order name: Hepatic Function kdr 08 17:23 Order name: PT-INR kdr 08 17:23 Order name: Ptt, Activated kdr 04/23 17:23 Order name: Salicylate kdr 04/23 17:23 Order name: Urine Drug Screen [facility] 04/23 19:34 Order name: CBC with Automated Diff; Complete Time: 19:45 EDMS 08 19:40 Order name: Basic Metabolic Panel; Complete Time: 19:45 EDMS 08 19:40 Order name: Liver (Hepatic) Function; Complete Time: 19:45 EDMS 08 19:40 Order name: Acetaminophen Level; Complete Time: 19:45 EDMS 08 19:41 Order name: Alcohol Serum/Plasma; Complete Time: 19:45 EDMS 08 17:31 Order name: CT Head Brain wo Cont [facility] 04/23 18:16 Order name: CT; Complete Time: 18:29 EDMS 08 19:41 Order name: Salicylates Level; Complete Time: 19:45 EDMS 08 19:46 Order name: Protime (+INR); Complete Time: 20:05 EDMS 04/23 19:46 Order name: PTT, Activated Partial Thromb; Complete Time: 20:05 EDMS 0806 20:06 Order name: Chest Single View XRAY [facility] 04/23 21:03 Order name: RAD; Complete Time: 21:19 EDMS 04/23 21:20 Order name: Lactate [facility] 04/23 21:20 Order name: Procalcitonin [facility] 04/23 22:15 Order name: Lactate; Complete Time: 22:40 EDMS 04/23 22:33 Order name: Procalcitonin; Complete Time: 22:40 EDMS 04/23 17:23 Order name: EKG; Complete Time: 17:24 [facility] 04/23 17:23 Order name: EKG - Nurse/Tech; Complete Time: 18:59 [facility] 04/23 17:23 Order name: IV Saline Lock; Complete Time: 18:52 kdr 04/23 17:23 Order name: Labs collected and sent; Complete Time: 18:52 kdr Administered Medications: 19:22 Drug: NS 0.9% 500 ml Route: IV; Rate: bolus; Site: left forearm; ao 23:00 Follow up: IV Status: Completed infusion; IV Intake: 500ml ao 20:19 Drug: Potassium Chloride 40 mEq Route: PO; ao 04/24 00:33 Follow up: Response: No adverse reaction ao 04/23 20:21 Not Given (No fever 98.8 oral): Tylenol 1000 mg PO once ao 22:40 Drug: Rocephin - (cefTRIAXone) 1 grams Route: IVPB; Infused Over: 30 mins; Site: left ao antecubital; 04/24 00:33 Follow up: IV Status: Completed infusion ao 04/23 22:45 Drug: Zithromax 500 mg Route: IVPB; Infused Over: 1 hrs; Site: left antecubital; ao 04/24 00:33 Follow up: IV Status: Completed infusion ao Disposition: 04/23/20 23:43 Discharged to Home. Impression: Pneumonia, Hypokalemia. - Condition is Stable. - Discharge Instructions: Community-Acquired Pneumonia, Adult, [id number]. - Prescriptions for Zithromax Z- Nikita 250 mg Oral Tablet - take 1 tablet by ORAL route as directed for 5 days Day 1 - take two (2) tablets one time. Day 2, 3, 4 , 5 take one (1) tablet once daily.; 6 tablet. Albuterol Sulfate 90 mcg/actuation - inhale 1-2 puff by INHALATION route every 4-6 hours; 1 Inhaler. - Medication Reconciliation Form, Thank You Letter, Antibiotic Education, Prescription Opioid Use form. - Follow up: Private Physician; When: 1 - 2 days; Reason: Worsening of condition, Recheck today's complaints, Continuance of care, Re-evaluation by your physician. - Problem is new. - Symptoms have improved. Signatures: Dispatcher [employer] EDMS Jaya Aleman MD MD [facility] Dafne Menezes RN RN Gen Louis RN RN ao Holmes, Maurice, MD MD 7 Corrections: (The following items were deleted from the chart) 04/23 23:44 23:43 04/23/2020 23:43 Discharged to Home. Impression: Pneumonia. Condition is Stable. mh7 Forms are Medication Reconciliation Form, Thank You Letter, Antibiotic Education, Prescription Opioid Use. Follow up: Private Physician; When: 1 - 2 days; Reason: Worsening of condition, Recheck today's complaints, Continuance of care, Re-evaluation by your physician. Problem is new. Symptoms have improved. mh7 04/24 00:33 04/23 17:23 Urine Dipstick-Ancillary ordered. kdr ao 04/24 01:16 04/23 23:44 04/23/2020 23:43 Discharged to Home. Impression: Pneumonia; Hypokalemia. ao Condition is Stable. Discharge Instructions: Community-Acquired Pneumonia, Adult, [id number]. Prescriptions for Zithromax Z-Nikita 250 mg Oral Tablet - take 1 tablet by ORAL route as directed for 5 days Day 1 - take two (2) tablets one time. Day 2, 3, 4 , 5 take one (1) tablet once daily.; 6 tablet, Albuterol Sulfate 90 mcg/actuation - inhale 1-2 puff by INHALATION route every 4-6 hours; 1 Inhaler. and Forms are Medication Reconciliation Form, Thank You Letter, Antibiotic Education, Prescription Opioid Use. Follow up: Private Physician; When: 1 - 2 days; Reason: Worsening of condition, Recheck today's complaints, Continuance of care, Re-evaluation by your physician. Problem is new. Symptoms have improved. mh7
[2020-04-24 01:32] VITALS: BP 132/70; TEMP 98.5; O2SAT 95
--- NOTE | 2020-04-24 15:18 | EKG ---
Test Date: 2020-04-23 Test Time: 18:57:31 Registered Dietician: LILIAM MEASUREMENT RESULTS: Intervals: Rate: 76 [place]: 134 QRSD: 82 QT: 372 QTc: 418 [place]: P: 71 [place]: 134 QRS: 59 T: 43 INTERPRETIVE STATEMENTS: Normal sinus rhythm Normal ECG Compared to ECG 04/16/2020 23:06:11 Sinus bradycardia no longer present Left ventricular hypertrophy no longer present Electronically Signed On 04-24-20 15:17:02 CDT by Len Tobar
== END 2020-04-24 01:16 | disposition home or self-care (01) ==
LOC: ER 16:01
DX: J18.9 Pneumonia, unspecified organism (principal); E87.6 Hypokalemia; E03.9 Hypothyroidism, unspecified; Z91.048 Other nonmedicinal substance allergy status
CPT/HCPCS: 36415; 70450; 71045; 80048; 80076; 80320; 80329; 83605; 84145; 85025; 85610; 85730; 93005; 96361; 96365; 99284; J0456; J0696; J7040; J7050

== ENCOUNTER 2020-06-29 05:34 | Inpatient (IN) | payer SELFPAY ==
[2020-06-29 06:01] LABS: Absolute Lymphocytes (CBC) 1.5 K/uL (0.7-4.9); Basophils % 0.8 % (0-1.3); Lymphocytes % 26.7 % (15.3-44.8); MPV 7.7 fL (7.6-11.3); RBC Red Blood Cell Count 1.74 M/uL (3.86-4.86)
[2020-06-29] MEDS ORDERED: NA CHLORIDE 0.9% 2,000 ML ONE (06:08)
[2020-06-29 06:15] LABS: Hematocrit 14.9 % (36.0-45.0)
[2020-06-29 06:19] LABS: ALT/SGPT 28 U/L (12-78); AST/SGOT 51 U/L (15-37); Albumin 2.6 g/dL (3.4-5.0); Alkaline Phosphatase 60 U/L (45-117); BUN Blood Urea Nitrogen 53 mg/dL (7-18); Bicarbonate 20 mmol/L (21-32); Bilirubin Direct < 0.1 mg/dL (0-0.2); Bilirubin Total 0.1 mg/dL (0.2-1.0); Glucose Level 127 mg/dL (74-106); NT PRO-BNP 325 pg/mL (<125); Potassium 4.1 mmol/L (3.5-5.1); Protein, Total 4.9 g/dL (6.4-8.2); Sodium Level 144 mmol/L (136-145); Troponin (Emerg Dept Use Only) < 0.02 ng/mL (0.0-0.045)
[2020-06-29] MEDS ORDERED: ONDANSETRON 4 MG/2 ML VIAL ONE (06:22)
[2020-06-29] MEDS ORDERED: NA CHLORIDE 0.9% 250 ML ONE ×3 (06:32→14:27)
[2020-06-29] MEDS ORDERED: PANTOPRAZOLE 40 MG INJ ONE (06:32)
--- NOTE | 2020-06-29 07:16 | EDPHYS ---
Physician Documentation [facility] Name: Rhea Carballo Age: 64 yrs Sex: Female : 1955 Arrival Date: 06/29/2020 Time: 05:44 Bed 7 Private MD: ED Physician Raul Watson HPI: 06/29 06:13 This 64 yrs old Female presents to ER via EMS with complaints of rectal tw4 bleeding. 06:13 The patient presents to the emergency department with rectal bleeding, a moderate tw4 amount. Onset: The symptoms/episode began/occurred. 06:14 Onset: The symptoms/episode began/occurred 3 day(s) ago. Abdominal pain: described as tw4 crampy. Modifying factors: The symptoms are alleviated by nothing, the symptoms are aggravated by nothing. Associated signs and symptoms: The patient has no apparent associated signs or symptoms. The patient has not experienced similar symptoms in the past. Historical: - Allergies: 05:57 Iodine; bb - Home Meds: 05:57 levothyroxine oral [Active]; bb - PMHx: 05:57 chronic back pain; Depression; GI Bleed; Hypothyroidism; SEROTONIN SYNDROME; bb - Immunization history:: Adult Immunizations unknown. - Social history:: Smoking status: Patient reports the use of cigarette tobacco products, smokes one-half pack cigarettes per day. ROS: 06:14 Constitutional: Negative for fever, chills, and weight loss, Cardiovascular: Negative tw4 for chest pain, palpitations, and edema, Respiratory: Negative for shortness of breath, cough, wheezing, and pleuritic chest pain, Back: Negative for injury and pain, MS/Extremity: Negative for injury and deformity, Skin: Negative for injury, rash, and discoloration, Neuro: Negative for headache, weakness, numbness, tingling, and seizure. 06:14 Abdomen/GI: Positive for abdominal pain. Exam: 06:14 Constitutional: This is a well developed, well nourished patient who is awake, alert, tw4 and in no acute distress. Head/Face: Normocephalic, atraumatic. Chest/axilla: Normal chest wall appearance and motion. Nontender with no deformity. No lesions are appreciated. Cardiovascular: Regular rate and rhythm with a normal S1 and S2. No gallops, murmurs, or rubs. Normal PMI, no JVD. No pulse deficits. Respiratory: Lungs have equal breath sounds bilaterally, clear to auscultation and percussion. No rales, rhonchi or wheezes noted. No increased work of breathing, no retractions or nasal flaring. Skin: Warm, dry with normal turgor. Normal color with no rashes, no lesions, and no evidence of cellulitis. MS/ Extremity: Pulses equal, no cyanosis. Neurovascular intact. Full, normal range of motion. Neuro: Awake and alert, GCS 15, oriented to person, place, time, and situation. Cranial nerves II-XII grossly intact. Motor strength 5/5 in all extremities. Sensory grossly intact. Cerebellar exam normal. Normal gait. 06:14 Abdomen/GI: Inspection: abdomen appears normal, Bowel sounds: normal, Palpation: abdomen is soft and non-tender. Vital Signs: 05:50 BP 104 / 33; Pulse 64; Resp 22 S; Temp 97.4(TE); Pulse Ox 100% on 2 lpm NC; Weight 63.5 bb kg (R); Height 5 ft. 6 in. (167.64 cm) (R); Pain 10/10; 07:06 BP 104 / 50; Pulse 63; Resp 14; Pulse Ox 100% on R/A; tw2 08:02 BP 113 / 57; Pulse 61; Resp 17; Pulse Ox 100% on R/A; tw2 08:58 BP 120 / 59; Pulse 72; Resp 15; Pulse Ox 100% on R/A; Pain 8/10; tw2 05:50 Body Mass Index 22.60 (63.50 kg, 167.64 cm) bb MDM: 05:51 Patient medically screened. tw4 06:14 Differential diagnosis: gastritis, diverticulitis, hemorrhoids. Data reviewed: vital tw4 signs, nurses notes. Data interpreted: Pulse oximetry: Interpretation: normal. Counseling: I had a detailed discussion with the patient and/or guardian regarding: the historical points, exam findings, and any diagnostic results supporting the discharge/admit diagnosis. 07:20 Test interpretation: by ED physician or midlevel provider: ECG. Physician consultation: tw4 Prince Marianne OCAMPO regarding admission, to the ICU, patient's condition, and will see patient in inpatient room, would like consultation with Dr. Hui/W Dr Liz at 0710 will see in am. Admission orders: after a detailed discussion of the patient's condition and case, the admit orders are written by me. 06/29 05:48 Order name: Basic Metabolic Panel; Complete Time: 06:59 tw4 06/29 06:59 Interpretation: Normal except: CL 112; GLUC 127; CO2 20; BUN 53; CRE 1.49; GFR 35. tw4 06/29 05:48 Order name: CBC with Diff tw4 06/29 06:59 Interpretation: Normal except: RBC 1.74; HGB 5.0; HCT 14.9; MCV 85.9; RDW 28.0; MCH tw4 28.6. 06/29 05:48 Order name: Type And Screen 06/29 05:48 Order name: LFT's; Complete Time: 06:59 tw4 06/29 07:31 Interpretation: Normal except: ALB 2.6; BILIT 0.1; AST 51; TP 4.9. tw4 06/29 05:48 Order name: Magnesium; Complete Time: 06:59 tw4 06/29 05:48 Order name: NT PRO-BNP; Complete Time: 06:59 06/29 07:00 Interpretation: NT PRO-BNP 325. 06/29 05:48 Order name: PT-INR; Complete Time: 06:59 tw4 06/29 07:00 Interpretation: PT 11.8. 06/29 05:48 Order name: Troponin (emerg Dept Use Only); Complete Time: 06:59 tw4 06/29 07:01 Order name: Packed RBC Leukored EDTN 06/29 08:45 Order name: CBC Smear Scan EDTN 06/29 05:48 Order name: Labs collected and sent; Complete Time: 05:49 06/29 05:48 Order name: EKG; Complete Time: 05:49 06/29 05:48 Order name: Cardiac monitoring; Complete Time: 05:49 06/29 05:48 Order name: EKG - Nurse/Tech; Complete Time: 05:55 4 06/29 05:48 Order name: IV Saline Lock; Complete Time: 05:49 4 06/29 05:48 Order name: Labs collected and sent; Complete Time: 05:49 4 06/29 05:48 Order name: O2 Per Protocol; Complete Time: :49 tw4 06/29 05:48 Order name: O2 Sat Monitoring; Complete Time: :49 tw4 EC:22 Rate is 61 beats/min. Rhythm is regular. QRS [place] is Normal. IA interval is normal. QRS tw4 interval is normal. QT interval is normal. No Q waves. T waves are Normal. No ST changes noted. Clinical impression: NSR w/ Non-specific ST/T Changes. Interpreted by me. Reviewed by me. Administered Medications: 05:51 Drug: NS 0.9% 1000 ml {Note: administered by MADISON Robb.} Route: IV; Rate: 1 bolus; jb4 Site: right antecubital; 07:00 Follow up: Response: No adverse reaction; IV Intake: 1000ml tw2 07:00 Follow up: IV Status: Completed infusion; IV Intake: 1000ml jl7 06:11 Drug: Zofran (Ondansetron) 4 mg Route: IVP; Site: left antecubital; 07:11 Follow up: Response: No adverse reaction; Nausea is decreased tw2 06:30 Drug: ProTONIX 8 mg/hr Route: IV; Rate: 25 ml/hr; Site: right upper arm; 08:19 Follow up: IV Status: Infusion continued upon admission jl7 09:56 Follow up: IV Status: Infusion continued upon admission tw2 06:39 Drug: NS 0.9% 1000 ml Route: IV; Rate: 125 ml/hr; Site: right upper arm; 08:19 Follow up: IV Status: Infusion continued upon admission jl7 09:57 Follow up: IV Status: Infusion continued upon admission tw2 08:58 Drug: Dilaudid 0.5 mg {Note: RASS -0.} Route: IVP; Site: left antecubital; tw2 09:56 Follow up: Response: No adverse reaction; Pain is decreased; RASS: Alert and Calm (0) tw2 Disposition: 06/29/20 07:16 Hospitalization ordered by Prince Marianne for Inpatient Admission. Preliminary diagnosis are Encounter for screening for lower gastrointestinal disorder, Gastrointestinal hemorrhage, unspecified. - Bed requested for Intensive Care Unit. - Status is Inpatient Admission. tw2 - Condition is Stable. - Problem is new. - Symptoms have improved. Signatures: Dispatcher [employer] EDMS Chacha Glover, RN RN bb Santa Barton RN RN tw2 Roman Meyer, RN RN jb4 Clarisse Young Terrence, MD MD tw4 Elli Steward RN jl7 Corrections: (The following items were deleted from the chart) 07:03 06:33 PACKED RBC LEUKORED -1+BB.LAB.BRZ ordered. EDTN EDTN 07:03 06:33 ABO/RH typing ordered. EDTN EDMS 07:03 06:33 Antibody Screen ordered. [facility] EDMS 09:57 07:16 Hospitalization Ordered by Prince Marianne OCAMPO for Inpatient Admission. Preliminary tw2 diagnosis is Encounter for screening for lower gastrointestinal disorder; Gastrointestinal hemorrhage, unspecified. Bed requested for Intensive Care Unit. Status is Inpatient Admission. Condition is Stable. Problem is new. Symptoms have improved. tw4
--- NOTE | 2020-06-29 07:16 | ER ---
Nurse's Notes [facility] Name: Rhea Carballo Age: 64 yrs Sex: Female : 1955 Arrival Date: 06/29/2020 Time: 05:44 Bed 7 Private MD: Diagnosis: Encounter for screening for lower gastrointestinal disorder;Gastrointestinal hemorrhage, unspecified Presentation: 06/29 05:50 Chief complaint: EMS states: they were toned out for abdominal pain pt was lying on the bb floor on their arrival screaming with black tarry stools pt states she has been having abdominal pain for 3 to 4 days now. Coronavirus screen: At this time, the client does not indicate any symptoms associated with coronavirus-19. Ebola Screen: No symptoms or risks identified at this time. Initial Sepsis Screen: Does the patient meet any 2 criteria? No. Patient's initial sepsis screen is negative. Does the patient have a suspected source of infection? No. Patient's initial sepsis screen is negative. Risk Assessment: Do you want to hurt yourself or someone else? Patient reports no desire to harm self or others. Onset of symptoms is unknown. 05:50 Method Of Arrival: EMS: [facility] 05:50 Acuity: МАРИНА 2 bb Triage Assessment: 05:57 General: Appears distressed, Behavior is anxious. Pain: Complains of pain in abdomen bb Pain currently is 10 out of 10 on a pain scale. Neuro: Level of Consciousness is awake, alert, obeys commands, Oriented to person, place, situation. Cardiovascular: Heart tones present Capillary refill < 3 seconds. Respiratory: Respiratory effort is unlabored, Respiratory pattern is tachypnea. GI: Abdomen is non-distended, Reports lower abdominal pain, upper abdominal pain, diarrhea, bloody stool. Derm: Skin is clammy, Skin is pale, Skin temperature is cool. Musculoskeletal: Circulation, motion, and sensation intact. Historical: - Allergies: 05:57 Iodine; bb - Home Meds: 05:57 levothyroxine oral [Active]; bb - PMHx: 05:57 chronic back pain; Depression; GI Bleed; Hypothyroidism; SEROTONIN SYNDROME; bb - Immunization history:: Adult Immunizations unknown. - Social history:: Smoking status: Patient reports the use of cigarette tobacco products, smokes one-half pack cigarettes per day. Screenin:05 Abuse screen: Denies threats or abuse. Denies injuries from another. Nutritional wh screening: No deficits noted. Tuberculosis screening: No symptoms or risk factors identified. Fall Risk None identified. Assessment: 06:03 General: Appears uncomfortable, pale. Pain: Complains of pain in abdomen Pain does not wh radiate. Pain currently is 7 out of 10 on a pain scale. Quality of pain is described as crampy, Is intermittent. Neuro: Level of Consciousness is awake, alert, obeys commands, Oriented to person, place, time, situation, Appropriate for age. Cardiovascular: Heart tones S1 S2 Rhythm is regular. Respiratory: Airway is patent Respiratory effort is even, unlabored, Respiratory pattern is regular, symmetrical, Breath sounds are clear bilaterally. GI: Abdomen is flat, non-distended, Abd is soft and non tender X 4 quads. Reports lower abdominal pain, black tarry stool. : No signs and/or symptoms were reported regarding the genitourinary system. EENT: No signs and/or symptoms were reported regarding the EENT system. Derm: Skin is intact, Skin is pale. Musculoskeletal: Circulation, motion, and sensation intact. 07:00 Reassessment: Patient appears in no apparent distress at this time. Patient and/or tw2 family updated on plan of care and expected duration. Pain level reassessed. Reassessment: Outside Lab called to let us know blood has to be ordered from [facility] in [place] due to patients antibodies and will be ordered as a STAT. 07:32 Reassessment: hospitalist at bedside at this time. tw2 08:02 Reassessment: Patient appears in no apparent distress at this time. No changes from tw2 previously documented assessment. Patient and/or family updated on plan of care and expected duration. Pain level reassessed. 08:50 Reassessment: pt c/o stomach pain, pt placed on bedpan at this time, called Dr. maritza Lopes, was give verbal order for 0.5 mg Dilaudid IV Every 3 hours for pain, prn. Also, states labs will be drawn 6 hours from original draw, which was at 0545am. Next labs due at 1145. 09:56 Reassessment: Patient appears in no apparent distress at this time. No changes from tw2 previously documented assessment. Patient and/or family updated on plan of care and expected duration. Pain level reassessed. Vital Signs: 05:50 BP 104 / 33; Pulse 64; Resp 22 S; Temp 97.4(TE); Pulse Ox 100% on 2 lpm NC; Weight 63.5 bb kg (R); Height 5 ft. 6 in. (167.64 cm) (R); Pain 10/10; 07:06 BP 104 / 50; Pulse 63; Resp 14; Pulse Ox 100% on R/A; tw2 08:02 BP 113 / 57; Pulse 61; Resp 17; Pulse Ox 100% on R/A; tw2 08:58 BP 120 / 59; Pulse 72; Resp 15; Pulse Ox 100% on R/A; Pain 8/10; tw2 05:50 Body Mass Index 22.60 (63.50 kg, 167.64 cm) bb ED Course: 05:44 Patient arrived in ED. tw4 05:44 Raul Watson MD is Attending Physician. tw4 05:45 Initial lab(s) drawn, by ED staff, sent to lab. Inserted saline lock: 20 gauge in left jb4 antecubital area, using aseptic technique. Blood collected. 05:55 Clarisse Young is Primary Nurse. 05:55 Missed attempt(s): 20 gauge in right forearm. Bleeding controlled, band aid applied, bb catheter tip intact. 05:56 Triage completed. 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 06:05 Patient has correct armband on for positive identification. Placed in gown. Bed in low wh position. Call light in reach. Side rails up X 1. occasional caregiver on. Pulse ox on. NIBP on. 06:15 Notified ED physician of a critical lab result(s). HGB 5.0, HCT 14.9 Notified primary jb4 nurse of Critical Labs HGB 5.0, HCT 14.9. 06:28 Accessed peripheral vein via ultrasound, utilizing dynamic ultrasound technique using bb 18G Sureflo IV catheter per hospital protocol. Good blood return. Flushes easily. 07:14 Prince Lopes MD is Hospitalizing Provider. tw4 07:35 Primary Nurse role handed off by Clarisse Young 07:51 Santa Barton, RN is Primary Nurse. tw2 09:42 No provider procedures requiring assistance completed. Patient admitted, IV remains in tw2 place. 09:42 Report given to MADISON Sierra. tw2 Administered Medications: 05:51 Drug: NS 0.9% 1000 ml {Note: administered by MADISON Robb.} Route: IV; Rate: 1 bolus; jb4 Site: right antecubital; 07:00 Follow up: Response: No adverse reaction; IV Intake: 1000ml tw2 07:00 Follow up: IV Status: Completed infusion; IV Intake: 1000ml jl7 06:11 Drug: Zofran (Ondansetron) 4 mg Route: IVP; Site: left antecubital; 07:11 Follow up: Response: No adverse reaction; Nausea is decreased tw2 06:30 Drug: ProTONIX 8 mg/hr Route: IV; Rate: 25 ml/hr; Site: right upper arm; 08:19 Follow up: IV Status: Infusion continued upon admission jl7 09:56 Follow up: IV Status: Infusion continued upon admission tw2 06:39 Drug: NS 0.9% 1000 ml Route: IV; Rate: 125 ml/hr; Site: right upper arm; 08:19 Follow up: IV Status: Infusion continued upon admission jl7 09:57 Follow up: IV Status: Infusion continued upon admission tw2 08:58 Drug: Dilaudid 0.5 mg {Note: RASS -0.} Route: IVP; Site: left antecubital; tw2 09:56 Follow up: Response: No adverse reaction; Pain is decreased; RASS: Alert and Calm (0) tw2 Intake: 07:00 IV: 1000ml; Total: 1000ml. tw2 07:00 IV: 1000ml; Total: 2000ml. jl7 Outcome: 07:16 Decision to Hospitalize by Provider. tw4 09:56 Admitted to ICU accompanied by nurse, via stretcher, Report called to MADISON Sierra tw2 09:56 Condition: stable 09:56 Instructed on the need for admit. 09:57 Patient left the ED. tw2 Signatures: Anastasiia Trevizo Brenda, RN RN bb Santa Barton RN RN tw2 Roman Meyer RN RN jb4 Elli Steward RN RN jl7 Clarisse Young Raul Spicer MD MD tw4 Corrections: (The following items were deleted from the chart) 08:58 08:58 Dilaudid 0.5 mg IVP in left antecubital tw2 tw2
--- NOTE | 2020-06-29 07:58 | P.HP ---
Certification for Inpatient Patient admitted to: Inpatient With expected LOS: >2 Midnights Practitioner: I am a practitioner with admitting privileges, knowledge of patient current condition, hospital course, and medical plan of care. Services: Services provided to patient in accordance with Admission requirements found in Title 42 Section 412.3 of the Code of Federal Regulations Patient History Date of Service: 06/29/20 Reason for admission: melenic stools History of Present Illness: Patient is a 64-year-old female with a past medical history of bipolar and schizoaffective disorder who presents to the ER complaining of a four-day history of melenic stools. Patient has a history of peptic ulcer disease which required multiple admissions in [place]. She has been told she has gastric ulcer. She has been taking aspirin for body ache and pains, usually twice a day. She is a poor historian. Therefore, I cannot establish the exact quantity, dosage and frequency. Initial assessment in the ER was significant for hypotension with SBP in the 80's. She was pale on admission. Her Hb was 5.0. Allergies iodine Allergy (Unknown, Verified 04/12/13 19:49) UNKNOWN NKDA Allergy (Uncoded 07/27/15 19:25) Unknown Home Medications: Levothyroxine [Synthroid*] 0.1 mg PO DAILYAC #30 tab 11/08/19 Pantoprazole [Protonix Tab] 40 mg PO DAILY #30 tab 11/08/19 risperiDONE [Risperdal 1 mg tab*] 1 mg PO BEDTIME #15 tab 11/08/19 - Past Medical/Surgical History Diabetic: No -: depression -: anxiety -: hypothyroidism -: stomach ulcer - Social History Alcohol use: No CD- Drugs: No Caffeine use: Yes Physical Examination - Physical Exam General: Cooperative, Mild distress HEENT: Atraumatic, Normocephalic, PERRLA, EOMI Neck: Supple Respiratory: Clear to auscultation bilaterally, Normal air movement Cardiovascular: No edema, Normal pulses, Regular rate/rhythm, Normal S1 S2, Systolic murmur Gastrointestinal: Normal bowel sounds, Soft and benign, Non-distended, No tenderness Musculoskeletal: No swelling, No erythema, No tenderness, No warmth, Clubbing Neurological: Normal speech, Sensation intact, Normal affect - Studies Laboratory Data (last 24 hrs) 06/29/20 05:45: PT 11.8, INR 1.00 06/29/20 05:45: WBC 5.6, Hgb 5.0 L*, Hct 14.9 L*, Plt Count 245 06/29/20 05:45: Sodium 144, Potassium 4.1, BUN 53 H, Creatinine 1.49 H, Glucose 127 H, Magnesium 2.0, Total Bilirubin 0.1 L, AST 51 H, ALT 28, Alkaline Phosphatase 60 Assessment and Plan - Problems (Diagnosis) (1) Upper GI bleeding Current Visit: Yes Status: Acute (2) RITA (acute kidney injury) Current Visit: Yes Status: Acute (3) Schizoaffective disorder Current Visit: Yes Status: Acute (4) Anxiety Current Visit: No Status: Acute - Advance Directives Does patient have a Living Will: No Does patient have a Durable POA for Healthcare: No Physician Review Additional Text: Patient is a 64 year old female with a PMH of PUD admitted with melenic stools, found to have a Hb 5.0. Upper GI bleeding PUD Hypothyroidism Anxiety Bipolar disorder Schizoaffective disorder PLAN: Admit to ICU for hemodynamic monitoring Volume repletion with pRBC and IVF PPI infusion for acid suppression GI has been consulted Follow up iron panel Trend CBC q 8 hours
[2020-06-29 08:44] LABS: Anisocytosis 3+; Blood Morphology Comment NOTED (NOT SEEN); Hypochromasia 1+; Platelet Estimate ADEQ; Polychromasia 1+; White Blood Cell Scan OK (OK)
[2020-06-29 08:45] LABS: Rouleau SLIGHT
[2020-06-29] MEDS ORDERED: HYDROMORPHONE HCL 0.5 MG/0.5 ML INJ ONE (09:07)
[2020-06-29] MEDS: Ringers Lactate 1,000 ML IV SCH ×2 (09:51→18:49)
[2020-06-29] MEDS ORDERED: PANTOPRAZOLE INJ 80 MG in NA CHLORIDE 0.9% 250 ML IV SCH (09:51)
[2020-06-29 11:24] LABS: Ferritin 10.4 ng/mL (8-388)
[2020-06-29 12:04] VITALS: BMI 22.6
[2020-06-29] MEDS ORDERED: HYDROMORPHONE HCL 0.5 MG/0.5 ML INJ IV PRN (12:20)
[2020-06-29] MEDS: PANTOPRAZOLE INJ 80 MG in NA CHLORIDE 0.9% 250 ML IV SCH (15:26)
[2020-06-29] MEDS ORDERED: Ringers Lactate 1,000 ML IV ONE (19:01)
[2020-06-29 20:44] LABS: Absolute Lymphocytes (CBC) 1.3 K/uL (0.7-4.9); Basophils % 0.6 % (0-1.3); Hematocrit 25.8 % (36.0-45.0); Lymphocytes % 16.2 % (15.3-44.8); MPV 7.5 fL (7.6-11.3); RBC Red Blood Cell Count 2.93 M/uL (3.86-4.86)
[2020-06-29] MEDS ORDERED: RISPERIDONE 1 MG TABLET ONE (21:04)
[2020-06-29] MEDS: RISPERIDONE 1 MG TABLET PO SCH (21:38)
[2020-06-30] MEDS ORDERED: Ringers Lactate 1,000 ML IV ONE ×2 (00:30→17:27)
[2020-06-30] MEDS: PANTOPRAZOLE INJ 80 MG in NA CHLORIDE 0.9% 250 ML IV SCH ×3 (01:00→21:00)
[2020-06-30 02:49] LABS: Absolute Lymphocytes (CBC) 1.3 K/uL (0.7-4.9); Basophils % 0.5 % (0-1.3); Hematocrit 22.7 % (36.0-45.0); Lymphocytes % 20.8 % (15.3-44.8); MPV 7.4 fL (7.6-11.3); RBC Red Blood Cell Count 2.57 M/uL (3.86-4.86)
[2020-06-30] MEDS: Ringers Lactate 1,000 ML IV SCH ×3 (03:20→17:15)
[2020-06-30] MEDS ORDERED: NA CHLORIDE 0.9% 250 ML IV SCH (04:00)
[2020-06-30] MEDS ORDERED: NA CHLORIDE 0.9% 250 ML ONE (04:16)
[2020-06-30 07:37] LABS: Albumin 2.3 g/dL (3.4-5.0); Bilirubin Total 0.2 mg/dL (0.2-1.0); Magnesium 2.2 mg/dL (1.8-2.4); Potassium 4.3 mmol/L (3.5-5.1); Protein, Total 4.5 g/dL (6.4-8.2)
--- NOTE | 2020-06-30 10:37 | P.PN ---
Subjective Date of Service: 06/30/20 Chief Complaint: melenic stools Subjective: No new changes (Patient reports feeling a little bit better this morning after receiving blood last night Denies any shortness of breath, chest pain, abdominal pain, nausea/vomiting) Physical Examination - Vital Signs Temperature: 98.4 F Blood Pressure: 121/51 Pulse: 60 Respirations: 16 Pulse Ox (%): 99 - Physical Exam General: Alert, In no apparent distress, Oriented x2, Other (Pale) Neck: No LAD Respiratory: Clear to auscultation bilaterally, Normal air movement Cardiovascular: No edema, Regular rate/rhythm Gastrointestinal: Soft and benign, Non-distended, No tenderness Musculoskeletal: No erythema, No tenderness Integumentary: No rashes Neurological: Normal speech, Normal affect Assessment & Plan Physician Review Additional Text: Patient is a 64 year old female with a PMH of PUD admitted with melenic stools, found to have a Hgb 5.0. Upper GI bleeding PUD Hypothyroidism Anxiety Bipolar disorder Schizoaffective disorder PLAN: Admitted to ICU for hemodynamic monitoring, vitals stable this morning Volume repletion with pRBC and IVF, improving, Hgb initially up to 8.5 last night, and found to be 7.5 this morning. Receiving an additional unit PRBC this morning. Recheck H&H post transfusion Protonix drip for acid suppression in setting of UGI bleed GI has been consulted - for likely EGD today pending H/H after blood Continue to trend CBC Dispo: pending EGD, anticipate dc home in 48-72hrs Time Spent Managing Pts Care (In Minutes): 34
--- NOTE | 2020-06-30 12:05 | ECHO ---
HEIGHT: 5 ft 6 in WEIGHT: 140 lb 0 oz DATE OF STUDY: 06/30/[address]: Prince Josue Lopes MD 2-DIMENSIONAL: YES M.MODE: YES DOPPLER: YES COLOR FLOW: YES TDS: PORTABLE: YES DEFINITY: BUBBLE STUDY: DIAGNOSIS: AORTIC STENOSIS CARDIAC HISTORY: CATHERIZATION: NO SURGERY: NO PROSTHETIC VALVE: NO PACEMAKER: NO MEASUREMENTS (cm) DIASTOLIC (NORMALS) SYSTOLIC (NORMALS) IVSd 0.9 (0.6-1.2) LA Diam 3.2 (1.9-4.0) LVEF 68% LVIDd 3.4 (3.5-5.7) LVIDs 2.1 (2.0-3.5) %FS 37% LVPWd 1.1 (0.6-1.2) Ao Diam 2.4 (2.0-3.7) 2 DIMENSIONAL ASSESSMENT: RIGHT ATRIUM: NORMAL LEFT ATRIUM: NORMAL RIGHT VENTRICLE: NORMAL LEFT VENTRICLE: NORMAL TRICUSPID VALVE: NORMAL MITRAL VALVE: NORMAL PULMONIC VALVE: NORMAL AORTIC VALVE: NORMAL PERICARDIAL EFFUSION: NONE AORTIC ROOT: NORMAL LEFT VENTRICULAR WALL MOTION: NORMAL DOPPLER/COLOR FLOW: NORMAL COMMENTS: NORMAL LEFT VENTRICULAR SIZE AND FUNCTION. NO AORTIC STENOSIS. MILD AORTIC SCLEROSIS. TECHNOLOGIST: AD AJ
[2020-06-30] MEDS ORDERED: EPINEPHRINE/PF 1 MG/ML AMP ONE (12:24)
[2020-06-30] MEDS ORDERED: LIDOCAINE 1% MPF 5 ML VIAL ONE (12:37)
[2020-06-30] MEDS ORDERED: propofoL 200 MG/20 ML VIAL IV ONE (12:37)
--- NOTE | 2020-06-30 13:07 | ENDO RPT ---
[address], [address] EGD PROCEDURE REPORT EXAM DATE: 06/30/2020 PATIENT NAME: Rhea Carballo MR#: [id number] BIRTHDATE: 1955 ATTENDING: Janusz Liz Dr STATUS: inpatient - 7 [facility] COACH: Chapis Ha RN and Brionna Duvall RN INDICATIONS: The patient is a 64 yr old Female here for an EGD due to melenic bleeding and anemia PROCEDURE PERFORMED: EGD with biopsy MEDICATIONS: Per Anesthesia. TOPICAL ANESTHETIC: none CONSENT: The patient understands the risks and benefits of the procedure and understands that these risks include, but are not limited to: sedation, allergic reaction, infection, perforation and/or bleeding. Alternative means of evaluation and treatment include, among others: physical exam, x-rays, and/or surgical intervention. The patient elects to proceed with this endoscopic procedure. DESCRIPTION OF PROCEDURE: During intra-op preparation period all mechanical medical equipment was checked for proper function. Hand hygiene and appropriate measures for infection prevention was taken. Procedure, possible complications, and alternatives including but not limited to the possibility of bleeding, perforation, tear, infection, sepsis, need for surgery, need for blood transfusion, and anesthesia related complications were explained to the patient. After the risks, benefits and alternatives of the procedure were thoroughly explained, Informed consent was verified, confirmed and timeout was successfully executed by the treatment team. The patient was placed in the left lateral position. The patient was anesthetized with topical anesthesia. Through the anesthetized oropharyngeal area, the scope was passed without any difficulty. The EG-[id number] ([id number]) endoscope was introduced through the mouth and advanced to the second portion of the duodenum. Retroflexed views revealed a moderate sized hiatal hernia. The gastroscope was then slowly withdrawn and removed. A Schatzki's ring was found in the lower esophagus. A moderate sized hiatal hernia was found Mild gastritis was found in the antrum. Multiple biopsies were obtained and sent to pathology. Multiple ulcers were found in the antrum. Multiple biopsies were obtained and sent to pathology. No active bleeding noted. ADVERSE EVENTS: There were no complications. IMPRESSIONS: 1. Schatzki's ring in the lower esophagus (no history of dysphagia) 2. Moderate sized hiatal hernia 3. Mild gastritis in the antrum, s/p biopsies RECOMMENDATIONS: 1. await biopsy results 2. acid suppression therapy 3. await gastrin level (pending with history of recurrent PUD over past 18 months) REPEAT EXAM: Janusz Liz Dr eSigned: Janusz Liz Dr 06/30/2020 1:06 PM cc: CPT CODES: ICD9 CODES: PATIENT NAME: Rhea Carballo MR#: [id number]
[2020-06-30 16:07] LABS: Hematocrit 28.2 % (36.0-45.0)
[2020-06-30 17:36] LABS: Absolute Lymphocytes (CBC) 1.1 K/uL (0.7-4.9); Basophils % 0.6 % (0-1.3); Lymphocytes % 14.2 % (15.3-44.8); MPV 7.8 fL (7.6-11.3); RBC Red Blood Cell Count 3.14 M/uL (3.86-4.86)
--- NOTE | 2020-06-30 20:49 | CON ---
Date of Consultation: 06/29/2020 Reason For Consultation: GI bleed with melena and anemia, hemoglobin down to 5.0. History Of Present Illness: The patient is a 64-year-old white female with history of bleeding peptic ulcer disease with recurrent admissions for peptic ulcers at various hospitals in the [facility] over the past year and a half. The patient presented to hospital with melenotic stools over the past 2 days. Hemoglobin was found to be 5.0 on admission. The patient did notice to have repeated hospital admissions all over the [place] area for peptic ulcer disease. She reports she is unsure if anyone has ever checked a gastrin level on her. She has been taking aspirin for body aches and pains nearly twice a day. She is a poor historian and has a history of bipolar disorder and schizoaffective disorder. The patient reports melena, but no hematochezia. No coffee-grounds emesis. No hematemesis. No nausea, vomiting, abdominal pain, fevers, chills, night sweats, chest pain, shortness of breath, seizure, syncope. Past Medical History: Significant for peptic ulcer disease with GI bleeding, recurrent admissions for GI bleed due to ulcers over the past year and a half in various hospitals in [facility]. She also has history of bipolar disorder, schizoaffective disorder, serotonin syndrome. She reports hypothyroidism, generalized anxiety disorder. Allergies: IODINE. Home Medications: Include Synthroid, Protonix, Risperdal. Social History: She is , 1 son. Positive for half pack of tobacco per day. She says it varies and she has been trying to decrease. No alcohol. Family History: Father of a cerebral aneurysm at the age of 81. Mother of dementia at "old age." Review of Systems: The patient has melena, weakness, but no abdominal pain. No nausea, vomiting, hematemesis, coffee-grounds emesis, hematochezia. No hematuria. No lower extremity edema, muscle aches, joint aches, backaches except when she is off her aspirin that she takes for her body aches and pains. She denies any seizure, syncope, chest pain, short of breath. She does have depression, bipolar disorder, and generalized anxiety disorder. Physical Examination: Vital Signs: The patient is 5 foot 6 inches, 140 pounds. BMI of 22.6 kg/m2. She has a temperature of 97.6 degrees Fahrenheit, pulse 70, respirations 14, blood pressure 136/41, O2 saturation 95%. General: She is a well-nourished female, lying in bed, in no acute distress. She is in the ER room 11 without any current distress. HEENT: Normocephalic, atraumatic. Anicteric. Pupils equal, round, and reactive to light. Extraocular movements intact. Oropharynx clear. Neck: Supple. No masses. Respirations: Clear to auscultation bilaterally. Cardiac: Regular rate and rhythm. Gastrointestinal: Positive bowel sounds. Soft, nontender, and nondistended. No hepatosplenomegaly. Extremities: No clubbing, cyanosis, or edema. 2+ pulses. Neurologic: Alert and oriented x3. Grossly nonfocal. 5/5 motor strength. Sensation intact to light touch. Able to move all extremities well. Laboratory Data: The patient had a hemoglobin of 5.0 on admission, still pending at this time, white count of 5.6, hematocrit of 15, MCV of 86, platelet count of 245, polys of 62% lymphs 27%, monocytes 8%, eosinophils 3%. PT of 11.2, INR of 1.0. The patient has a sodium of 144, potassium 4.1, chloride 112, bicarb 20, BUN 53, creatinine of 1.5, glucose 127, calcium 8.2, magnesium 2.0, iron saturation 28%, ferritin of 10.4, total bilirubin 0.1, direct bilirubin less than 0.1, AST of 51, ALT of 28, alkaline phosphatase 60. Troponin I less than 0.02. B-type natriuretic peptide slightly elevated at 325. Total protein is 4.9, albumin 2.6. Smear is okay. Impression: 1. Gastrointestinal bleed with melena for past 2 days, hemoglobin 5.0. 2. History of recurrent peptic ulcer bleeding, seen at multiple hospitals in the [place] area over the past 18 months. She will need to be on PPI therapy with urgent EGD once resuscitated. 3. History of peptic ulcer disease, current gastrointestinal bleeding, bipolar disorder, schizoaffective disorder, serotonin syndrome, hypothyroidism, and generalized anxiety disorder. Recommendations: 1. Continue resuscitation. 2. Continue IV fluids. 3. Continue to check H and H serially and transfuse p.r.n. 4. PPI therapy. The patient is on Protonix drip. Continue this for right now. 5. Urgent EGD. 6. Check gastrin level in the morning. 7. Tobacco cessation. ALLEN/PAYAM Voice ID: [id number] Report ID: [id number] MTDD
[2020-06-30] MEDS: RISPERIDONE 1 MG TABLET PO SCH (21:24)
[2020-07-01] MEDS: PANTOPRAZOLE INJ 80 MG in NA CHLORIDE 0.9% 250 ML IV SCH (02:21)
[2020-07-01] MEDS: Ringers Lactate 1,000 ML IV SCH ×2 (02:21→11:36)
[2020-07-01 04:04] LABS: MPV 7.3 fL (7.6-11.3); RBC Red Blood Cell Count 3.31 M/uL (3.86-4.86)
[2020-07-01 04:14] LABS: Magnesium 2.1 mg/dL (1.8-2.4)
[2020-07-01 09:23] VITALS: O2SAT 97
[2020-07-01 13:10] LABS: Hematocrit 28.7 % (36.0-45.0)
--- NOTE | 2020-07-01 13:42 | P.PN ---
Subjective Date of Service: 07/01/20 Chief Complaint: melenic stools Subjective: Improving (Feeling better this morning, no nausea/vomiting, no abdominal pain. Patient reports feeling hungry) Physical Examination - Vital Signs Temperature: 97.6 F Blood Pressure: 111/55 Pulse: 55 Respirations: 16 Pulse Ox (%): 97 - Physical Exam General: Alert, In no apparent distress HEENT: Sclerae nonicteric Neck: No LAD Respiratory: Clear to auscultation bilaterally Cardiovascular: No edema, Regular rate/rhythm, Normal S1 S2 Gastrointestinal: Soft and benign, Non-distended, No tenderness Musculoskeletal: No erythema, No tenderness Integumentary: No rashes Neurological: Normal speech, Normal affect Assessment & Plan Physician Review Additional Text: Patient is a 64 year old female with a PMH of PUD admitted with melenic stools, found to have a Hgb 5.0. Upper GI bleeding PUD Hypothyroidism Anxiety Bipolar disorder Schizoaffective disorder PLAN: Admitted initially to ICU for hemodynamic monitoring; Volume repletion with pRBC and IVF, improving Received an additional unit PRBC on 06/30, prior to EGD Protonix drip for acid suppression in setting of UGI bleed GI has been consulted - EGD done on 06/30: noted for Schatzki's ring, moderate hiatal hernia, mild gastritis s/p biopsies If continues to tolerate p.o., this will discontinue IV fluids, switch Protonix drip to p.o. b.i.d. Continue to monitor H&H, stable overnight, no BM yet Dispo: pending GI recommendations, stable Hgb, anticipate dc home tomorrow Time Spent Managing Pts Care (In Minutes): 35
[2020-07-01] MEDS ORDERED: PANTOPRAZOLE 40MG TABLET PO SCH (16:30)
[2020-07-01 17:42] VITALS: BP 110/57; TEMP 98.5
--- NOTE | 2020-07-01 17:45 | P.DS ---
Admission Date: 06/29/20 Discharge Date: 07/01/20 Disposition: ROUTINE DISCHARGE Discharge Condition: GOOD Reason for Admission: melenic stools Consultations: GI - Dr. Liz Procedures: Echocardiogram (06/30/20): Normal LV size and function. No aortic stenosis. Mild aortic sclerosis. Endoscopy (06/30/20): 1. Schatzki's ring in the lower esophagus 2. Moderate sized hiatal hernia 3. Mild gastritis in the antrum, s/p biopsies Problem list Upper GI bleed / Melenic stools Acute blood loss anemia h/o PUD Hypothyroidism Anxiety Bipolar disorder Schizoaffective disorder Brief History of Present Illness: 64yo F, PMH: bipolar, schizoaffective, PUD who presented to ED complaining of a four-day history of melenic stools. Patient has a history of peptic ulcer disease which required multiple admissions in [place]. She has been told she has gastric ulcer. She has been taking aspirin for body ache and pains, usually twice a day. She is a poor historian. Therefore, I cannot establish the exact quantity, dosage and frequency. Initial assessment in the ER was significant for hypotension with SBP in the 80's. She was pale on admission. Her Hgb was 5.0. Hospital Course: Patient was initially admitted to the ICU for hemodynamic monitoring overnight. She received 2 unit PRBCs and IV fluids. Her hemoglobin on the morning of 07/02 with 7.5, an additional PRBC was given. GI was consulted and patient underwent EGD on 06/30, results as noted above. After the EGD, patient's diet was slowly advanced and tolerating a GI soft diet, was without any pain or nausea, and her hemoglobin was stable. The patient was discharged home to follow up with her PCP and with Dr. Liz. Her Hgb post EGD: 9.3-> 9.7-> 9.4 Her pantoprazole 40 mg daily was increased to b.i.d. on discharge. Vital Signs/Physical Exam: Temp Pulse Resp BP Pulse Ox 98.5 F 58 16 110/57 L 98 07/01/20 16:00 07/01/20 16:00 07/01/20 16:00 07/01/20 16:00 07/01/20 16:00 General: Alert, In no apparent distress HEENT: Mucous membr. moist/pink Neck: Supple Respiratory: Clear to auscultation bilaterally, Normal air movement Cardiovascular: No edema, Regular rate/rhythm, Normal S1 S2 Gastrointestinal: Soft and benign, Non-distended, No tenderness Musculoskeletal: No erythema, No tenderness Integumentary: No rashes Neurological: Normal speech, Normal affect ( / tearful at times, frustrated) Laboratory Data at Discharge: WBC 5.9 K/uL (4.3-10.9) D 07/01/20 03:36 Hgb 9.4 g/dL (12.0-15.0) L 07/01/20 12:52 Hct 28.7 % (36.0-45.0) L 07/01/20 12:52 Plt Count 242 K/uL (152-406) 07/01/20 03:36 PT 11.8 SECONDS (9.5-12.5) 06/29/20 05:45 INR 1.00 06/29/20 05:45 Sodium 144 mmol/L (136-145) 07/01/20 03:36 Potassium 4.0 mmol/L (3.5-5.1) 07/01/20 03:36 BUN 14 mg/dL (7-18) 07/01/20 03:36 Creatinine 1.18 mg/dL (0.55-1.3) 07/01/20 03:36 Glucose 74 mg/dL (74-106) 07/01/20 03:36 Magnesium 2.1 mg/dL (1.8-2.4) 07/01/20 03:36 Total Bilirubin 0.2 mg/dL (0.2-1.0) 06/30/20 07:03 AST 23 U/L (15-37) 06/30/20 07:03 ALT 21 U/L (12-78) 06/30/20 07:03 Alkaline Phosphatase 48 U/L (45-117) 06/30/20 07:03 Home Medications: Levothyroxine [Synthroid*] 0.1 mg PO DAILYAC #30 tab 11/08/19 risperiDONE [Risperdal 1 mg tab*] 1 mg PO BEDTIME #15 tab 11/08/19 Pantoprazole [Protonix Tab*] 40 mg PO BIDAC 30 Days #60 tab 07/01/20 New Medications: Pantoprazole [Protonix Tab*] 40 mg PO BIDAC 30 Days #60 tab Patient Discharge Instructions: Follow up with PCP within 3-5 days to check your hemoglobin level. Follow up with GI (Dr. Liz) in 1-2 weeks. Medication changes. Pantoprazole (Protonix) 40mg - changed to twice a day. Diet: soft diet, bland Followup: Janusz Liz MD [ASSOCIATE-ACTIVE - CAN ADMIT] - Time spent managing pt's care (in minutes): 35
[2020-07-02] MEDS ORDERED: LEVOTHYROXINE SOD 0.1 MG TAB PO SCH (06:30)
== END 2020-07-01 18:44 | disposition home or self-care (01) | DRG 391 ==
LOC: ER 05:34 → ERHOLD 07:02 → 2ND 06-30 17:46
PROVIDERS: ADMIT Internal Medicine; ATTEND Hospitalist
PROC: 30233N1 Transfusion of Nonautologous Red Blood Cells into Peripheral Vein, Percutaneous Approach (ICD-10-PCS; principal; 2020-06-29)
PROC: 0DB78ZX Excision of Stomach, Pylorus, Via Natural or Artificial Opening Endoscopic, Diagnostic (ICD-10-PCS; 2020-06-30)
DX: K22.2 Esophageal obstruction (principal); K29.71 Gastritis, unspecified, with bleeding; K27.4 Chronic or unspecified peptic ulcer, site unspecified, with hemorrhage; N17.9 Acute kidney failure, unspecified; D62 Acute posthemorrhagic anemia; K44.9 Diaphragmatic hernia without obstruction or gangrene; F25.9 Schizoaffective disorder, unspecified; F41.9 Anxiety disorder, unspecified; E03.9 Hypothyroidism, unspecified; F31.9 Bipolar disorder, unspecified; F17.200 Nicotine dependence, unspecified, uncomplicated; Z79.82 Long term (current) use of aspirin; Z79.890 Hormone replacement therapy; Z79.899 Other long term (current) drug therapy; Z91.09 Other allergy status, other than to drugs and biological substances
CPT/HCPCS: 36415; 36430; 80048; 80053; 80076; 82728; 82941; 83036; 83540; 83735; 83880; 84466; 84484; 85014; 85018; 85025; 85027; 85610; 86850; 86900; 86901; 86922; 88305; 88312; 93005; 93306; 96361; 96365; 96366; 96375; 99285; C9113; J0171; J1170; J2405; J2704; J7030; J7050; J7120; P9016

== ENCOUNTER 2020-07-17 10:29 | Emergency (ER) | payer SELFPAY ==
[2020-07-17] MEDS ORDERED: CYCLOBENZAPRINE 10 MG TAB ONE (11:12)
[2020-07-17] MEDS ORDERED: CODEINE 30MG/APAP 300MG TAB ONE (11:13)
[2020-07-17 12:23] LABS: Absolute Lymphocytes (CBC) 1.2 K/uL (0.7-4.9); Hematocrit 33.6 % (36.0-45.0); MPV 7.1 fL (7.6-11.3); RBC Red Blood Cell Count 3.89 M/uL (3.86-4.86)
[2020-07-17 12:27] LABS: Lymphocytes % 20.2 % (15.3-44.8)
[2020-07-17 13:11] LABS: Potassium 4.4 mmol/L (3.5-5.1)
--- NOTE | 2020-07-17 13:49 | ER ---
Nurse's Notes [facility] Name: Rhea Carballo Age: 64 yrs Sex: Female : 1955 Arrival Date: 07/17/2020 Time: 10:31 Bed 18 Private MD: Diagnosis: Right neck pain - resolved Presentation: 07/17 10:37 Chief complaint: Patient states: chronic neck pain that has gotten worse over the past ss month. Coronavirus screen: Client denies travel out of the [place] in the last 14 days. Ebola Screen: Patient denies exposure to infectious person. Patient denies travel to an Ebola-affected area in the 21 days before illness onset. Initial Sepsis Screen: Does the patient meet any 2 criteria? RR > 20 per min. HR > 90 bpm. Does the patient have a suspected source of infection? No. Patient's initial sepsis screen is negative. Risk Assessment: Do you want to hurt yourself or someone else? Patient reports no desire to harm self or others. Onset of symptoms is unknown. 10:37 Method Of Arrival: Ambulatory ss 10:37 Acuity: МАРИНА 3 ss Triage Assessment: 10:40 General: Appears distressed, uncomfortable, Behavior is cooperative, agitated, anxious, bp crying, PT STATES ALL S/S 2/2 LACK OF THYROID MEDICATION. Pain: Complains of pain in back of neck. EENT: No deficits noted. Neuro: No deficits noted. Cardiovascular: No deficits noted. Respiratory: No deficits noted. GI: No signs and/or symptoms were reported involving the gastrointestinal system. : No signs and/or symptoms were reported regarding the genitourinary system. Derm: No deficits noted. Musculoskeletal: Reports pain in back of neck. Historical: - Allergies: 10:39 Iodine; ss - PMHx: 10:39 chronic back pain; Depression; GI Bleed; Hypothyroidism; SEROTONIN SYNDROME; ss - Immunization history:: Adult Immunizations unknown. - Social history:: Smoking status: Patient reports the use of cigarette tobacco products, denies chronic smoking, but will smoke occasionally. Screenin:55 Abuse screen: Denies threats or abuse. Denies injuries from another. Nutritional bp screening: No deficits noted. Tuberculosis screening: No symptoms or risk factors identified. Fall Risk None identified. Assessment: 10:54 General: SEE TRIAGE NOTE. Neuro: Level of Consciousness is awake, alert, obeys bp commands, Oriented to Appropriate for age. 11:28 Reassessment: No changes from previously documented assessment. UNABLE TO OBTAIN BLOOD bp SPECIMEN, PHLEBOTOMY CONTACTED FOR BLOOD DRAW. 13:09 Reassessment: Patient appears in no apparent distress at this time. ALL CURRENT ORDERS bp IN PROCESS, LABS PARTIALLY RESULTED Patient states feeling better. Patient states symptoms have improved. 15:04 Reassessment: PT D/C HOME VIA W/C WITH FAMILY, DX WITH ACUTE TORTICOLLIS. bp Vital Signs: 10:37 BP 163 / 126; Pulse 113; Resp 23; Temp 98.0(TE); Pulse Ox 94% on R/A; Weight 65.77 kg; ss Height 5 ft. 6 in. (167.64 cm); Pain 10/10; 11:29 BP 134 / 57; Pulse 71; Resp 16; Pulse Ox 100% ; bp 13:00 BP 157 / 90; Pulse 63; Resp 16; Pulse Ox 99% ; bp 14:00 BP 153 / 89; Pulse 62; Resp 16; Pulse Ox 100% ; bp 14:59 BP 156 / 85; Pulse 72; Resp 17; Temp 98; Pulse Ox 100% ; bp 10:37 Body Mass Index 23.40 (65.77 kg, 167.64 cm) ss ED Course: 10:31 Patient arrived in ED. ag5 10:39 Triage completed. ss 10:39 Arm band placed on right wrist. ss 10:46 Jaya Aleman MD is Attending Physician. kdr 10:51 Emmett Weeks, [place] is Primary Nurse. bp 10:55 Patient has correct armband on for positive identification. Bed in low position. Call bp light in reach. Side rails up X2. 11:24 Inserted saline lock: 22 gauge in left hand, using aseptic technique. ca1 12:19 Basic Metabolic Panel Sent. bp 12:19 CBC with Diff Sent. bp 15:04 No provider procedures requiring assistance completed. IV discontinued, intact, bp bleeding controlled, No redness/swelling at site. Pressure dressing applied. Administered Medications: 11:03 Drug: Flexeril 10 mg Route: PO; bp 13:08 Follow up: Response: Pain is decreased bp 11:03 Drug: Tylenol #3 (300 mg-30 mg) 2 tabs Route: PO; bp 13:08 Follow up: Response: Pain is decreased bp 14:30 Drug: levothyroxine 100 mcg Route: IV; Rate: calculated rate; Site: left hand; bp 15:05 Follow up: IV Status: Completed infusion bp Outcome: 13:48 Discharge ordered by . kdr 15:04 Discharged to home via wheelchair, with family. bp 15:04 Condition: stable 15:04 Discharge instructions given to patient, Instructed on discharge instructions, follow up and referral plans. medication usage, Demonstrated understanding of instructions, follow-up care, medications, Prescriptions given X 4. 15:05 Patient left the ED. bp Signatures: Jaya Aleman MD MD kdr Smirch, Shelby, RN RN ss Emmett Weeks RN RN bp Mindy Diane RN RN [facility] Pam Vilchis 5
--- NOTE | 2020-07-17 13:49 | EDPHYS ---
Physician Documentation [facility] Name: Rhea Carballo Age: 64 yrs Sex: Female : 1955 Arrival Date: 07/17/2020 Time: 10:31 Bed 18 Private MD: ED Physician Jaya Aleman HPI: 07/17 13:56 This 64 yrs old Female presents to ER via Ambulatory with complaints of Neck kdr Pain, >24Hrs Old. 13:56 The patient or guardian complains of decreased range of motion, pain, that is acute, kdr spasm. The symptoms are located on the right posterior aspect of neck and right lateral aspect of neck. Onset: The symptoms/episode began/occurred This is chronic pain which occasionally gets acutely worse. Context: The problem was sustained at home. Associated signs and symptoms: The patient has no apparent associated signs or symptoms. The pain does not radiate. Modifying factors: The symptoms are alleviated by nothing. the symptoms are aggravated by nothing. Severity of symptoms: At their worst the symptoms were mild, moderate, in the emergency department the symptoms are unchanged. The patient has experienced similar episodes in the past, multiple times. The patient has not recently seen a physician. Historical: - Allergies: 10:39 Iodine; ss - PMHx: 10:39 chronic back pain; Depression; GI Bleed; Hypothyroidism; SEROTONIN SYNDROME; ss - Immunization history:: Adult Immunizations unknown. - Social history:: Smoking status: Patient reports the use of cigarette tobacco products, denies chronic smoking, but will smoke occasionally. ROS: 13:56 Constitutional: Negative for fever, chills, and weight loss, Eyes: Negative for injury, kdr pain, redness, and discharge, ENT: Negative for injury, pain, and discharge, Cardiovascular: Negative for chest pain, palpitations, and edema, Respiratory: Negative for shortness of breath, cough, wheezing, and pleuritic chest pain, Abdomen/GI: Negative for abdominal pain, nausea, vomiting, diarrhea, and constipation, Back: Negative for injury and pain, : Negative for injury, bleeding, discharge, and swelling, MS/Extremity: Negative for injury and deformity, Skin: Negative for injury, rash, and discoloration, Neuro: Negative for headache, weakness, numbness, tingling, and seizure activity. Psych: Negative for depression, anxiety, suicide ideation, homicidal ideation, and hallucinations, Allergy/Immunology: Negative for hives, rash, and allergies, Endocrine: Negative for neck swelling, polydipsia, polyuria, polyphagia, and marked weight changes, Hematologic/Lymphatic: Negative for swollen nodes, abnormal bleeding, and unusual bruising. Exam: 13:56 Constitutional: This is a well developed, well nourished patient who is awake, alert, kdr and in no acute distress. Head/Face: Normocephalic, atraumatic. Eyes: Pupils equal round and reactive to light, extra-ocular motions intact. Lids and lashes normal. Conjunctiva and sclera are non-icteric and not injected. Cornea within normal limits. Periorbital areas with no swelling, redness, or edema. Chest/axilla: Normal chest wall appearance and motion. Nontender with no deformity. No lesions are appreciated. Cardiovascular: Regular rate and rhythm with a normal S1 and S2. No gallops, murmurs, or rubs. Normal PMI, no JVD. No pulse deficits. Respiratory: Lungs have equal breath sounds bilaterally, clear to auscultation and percussion. No rales, rhonchi or wheezes noted. No increased work of breathing, no retractions or nasal flaring. Abdomen/GI: Soft, non-tender, with normal bowel sounds. No distension or tympany. No guarding or rebound. No evidence of tenderness throughout. Back: No spinal tenderness. No costovertebral tenderness. Full range of motion. Skin: Warm, dry with normal turgor. Normal color with no rashes, no lesions, and no evidence of cellulitis. 13:56 Neck: External neck: tenderness, C-spine: C-collar placed [employer], Thyroid: appears normal, Trachea: no acute changes, ROM/movement: limited range of motion, that is moderate, in any direction, Meningeal signs: Vital Signs: 10:37 BP 163 / 126; Pulse 113; Resp 23; Temp 98.0(TE); Pulse Ox 94% on R/A; Weight 65.77 kg; ss Height 5 ft. 6 in. (167.64 cm); Pain 10/10; 11:29 BP 134 / 57; Pulse 71; Resp 16; Pulse Ox 100% ; bp 13:00 BP 157 / 90; Pulse 63; Resp 16; Pulse Ox 99% ; bp 14:00 BP 153 / 89; Pulse 62; Resp 16; Pulse Ox 100% ; bp 14:59 BP 156 / 85; Pulse 72; Resp 17; Temp 98; Pulse Ox 100% ; bp 10:37 Body Mass Index 23.40 (65.77 kg, 167.64 cm) ss MDM: 13:48 Patient medically screened. kdr 13:56 Data reviewed: vital signs, nurses notes, lab test result(s). Counseling: I had a kdr detailed discussion with the patient and/or guardian regarding: the historical points, exam findings, and any diagnostic results supporting the discharge/admit diagnosis, lab results, radiology results, the need for outpatient follow up. 07/17 10:58 Order name: CBC with Diff; Complete Time: 13:50 kdr 07/17 10:58 Order name: Basic Metabolic Panel; Complete Time: 13:50 kdr 07/17 10:58 Order name: TSH; Complete Time: 13:50 kdr 07/17 13:13 Order name: T4 Free; Complete Time: 13:50 EDMS Administered Medications: 11:03 Drug: Flexeril 10 mg Route: PO; bp 13:08 Follow up: Response: Pain is decreased bp 11:03 Drug: Tylenol #3 (300 mg-30 mg) 2 tabs Route: PO; bp 13:08 Follow up: Response: Pain is decreased bp 14:30 Drug: levothyroxine 100 mcg Route: IV; Rate: calculated rate; Site: left hand; bp 15:05 Follow up: IV Status: Completed infusion bp Disposition: 07/17/20 13:48 Discharged to Home. Impression: Right neck pain - resolved. - Condition is Stable. - Discharge Instructions: Acute Torticollis, Adult. - Prescriptions for Ibuprofen 600 mg Oral Tablet - take 1 tablet by ORAL route every 6 hours As needed take with food; 15 tablet. Cyclobenzaprine 10 mg Oral Tablet - take 1 tablet by ORAL route every 8 hours As needed; 15 tablet. Tramadol 50 mg Oral Tablet - take 1 tablet by ORAL route every 8 hours As needed as needed; 12 tablet. Levothyroxine 150 mcg Oral Tablet - take 1 tablet by ORAL route once daily take 30 minutes before breakfast; 30 tablet. - Medication Reconciliation Form, Thank You Letter, Prescription Opioid Use form. - Follow up: Private Physician; When: 2 - 3 days; Reason: If symptoms return, Further diagnostic work-up, Recheck today's complaints, Continuance of care, Re-evaluation by your physician. - Problem is new. - Symptoms have improved. Signatures: Dispatcher [employer] EDMS Jaya Aleman MD MD [facility] Cristina Prescott RN RN Emmett Weeks, [place] RN bp Corrections: (The following items were deleted from the chart) 15:05 13:48 07/17/2020 13:48 Discharged to Home. Impression: Right neck pain - resolved. bp Condition is Stable. Forms are Medication Reconciliation Form, Thank You Letter, Antibiotic Education, Prescription Opioid Use. Follow up: Private Physician; When: 2 - 3 days; Reason: If symptoms return, Further diagnostic work-up, Recheck today's complaints, Continuance of care, Re-evaluation by your physician. Problem is new. Symptoms have improved. kdr
[2020-07-17] MEDS ORDERED: LEVOTHYROXINE SODIUM 100 MCG VIAL IV ONE (14:30)
[2020-07-17 15:18] VITALS: O2SAT 100
[2020-07-17 15:19] VITALS: BP 156/85; TEMP 98
== END 2020-07-17 15:05 | disposition home or self-care (01) ==
LOC: ER 10:29
DX: M54.2 Cervicalgia (principal); F17.210 Nicotine dependence, cigarettes, uncomplicated; Z91.048 Other nonmedicinal substance allergy status
CPT/HCPCS: 36415; 80048; 84439; 84443; 85025; 96365; 99284

== ENCOUNTER 2021-08-18 02:41 | Emergency (ER) | payer SELFPAY ==
--- OUTSIDE RECORDS SUMMARY | 2021-08-18 02:45 | XMS REPORT | Continuity of Care Document ---
:1955 Author Organization [facility] t Address [address] [place] [address] Care Team Providers Name Role Phone SHER, E Primary Care Physician Unavailable PAUL SANTOS Attending Clinician Unavailable Eulogio Mcknight MD Attending Clinician EULOGIO MCKNIGHT Attending Clinician Unavailable CARLOS Attending Clinician Unavailable BONIFACIO Attending Clinician Unavailable PARADISE GRIFFITHS Attending Clinician Unavailable PAUL SANTOS Admitting Clinician Unavailable GRACE KIM Admitting Clinician Unavailable CARLOS Admitting Clinician Unavailable ALAYNAUNNEY Admitting Clinician Unavailable PARADISE GRIFFITHS Admitting Clinician Unavailable Problems Condition Condition Condition Status Onset Resolution Last Treating Co mments Source Name Details Category Date Date Treatment Clinician Date No known No known Disease Unive rs active active ity of problems problems [facility] Allergies, Adverse Reactions, Alerts Allergy Allergy Status Severity Reaction(s) Onset Inactive Treating Comm ents Source Name Type Date Date Clinician NO KNOWN Drug Active Univers ALLERGIE Class ity of S [facility] NO KNOWN Allergy Active SLEH ALLERGIE S Social History Social Habit Start Date Stop Date Quantity Comments Source History SDOH University o f Alcohol Std [place] [facility] History SDOH University o f Alcohol Binge [place] [facility] History SDOH University o f Alcohol Comment [place] [facility] Exposure to Not sure University of SARS-CoV-2 [place] [facility] (event) Branch Alcohol intake 2021-08-16 2021-08-16 Lifetime University of 00:00:00 00:00:00 non-drinker [place] [facility] (finding) Branch History SDOH 2021-05-07 2021-05-07 1 University o f Alcohol Frequency 00:00:00 00:00:00 [facility] [place] Tobacco use and 2021-04-05 2021-04-05 Never used Universit y of exposure 00:00:00 00:00:00 [facility] Sex Ass[birth year] Universit y of 00:00:00 00:00:00 [facility] Smoking Status Start Date Stop Date Source Never smoker General acute hospital Medications Ordered Filled Start Stop Current Ordering Indication Dosage Frequency Signature Comments Components Source Medication Medication Date Date Medication? Clinician (SIG) Name Name levothyroxi 2020-09 Yes [id number] 150ug Take 1 Univers ne 150 mcg 1-29 tablet by ity of tablet 00:00: mouth [place] 00 every Medical morning. Branch busPIRone 5 2020-09 Yes [id number] 5mg Take 1 Univers mg tablet 1-29 tablet by ity o f 00:00: mouth 2 [place] 00 (two) Medical times Branch daily. buPROPion 2020-09 Yes [id number] 150mg Take 1 Univers XL 1-29 tablet by ity of (WELLBUTRIN 00:00: mouth [place] XL) 150 mg 00 daily. Medical 24 hr Branch tablet lisinopriL 2020-09 Yes [id number] 20mg Take 1 U nivers 20 mg 1-29 tablet by ity of tablet 00:00: mouth [place] 00 daily. Medical Branch levothyroxi 2020-09 Yes [id number] 150ug Take 1 Univers ne 150 mcg 1-29 tablet by ity of tablet 00:00: mouth [place] 00 every Medical morning. Branch busPIRone 5 2020-09 Yes [id number] 5mg Take 1 Univers mg tablet 1-29 tablet by ity o f 00:00: mouth 2 [place] 00 (two) Medical times Branch daily. buPROPion 2020-09 Yes [id number] 150mg Take 1 Univers XL 1-29 tablet by ity of (WELLBUTRIN 00:00: mouth [place] XL) 150 mg 00 daily. Medical 24 hr Branch tablet lisinopriL 2020-09 Yes [id number] 20mg Take 1 U nivers 20 mg - tablet by ity of tablet 00:00: mouth [place] 00 daily. Medical Branch buPROPion 2020- No [id number] 150mg Take 1 [facility] XL 05-07 tablet by ity of (WELLBUTRIN 00:[place] XL[place] 150 mg 00 :00 daily. Medical 24 hr Branch tablet busPIRone 5 2020- No [id number] 5mg Take 1 Univers mg tablet 05-07 tablet by ity of 00:00: 00:00 mouth 2 [place] 00 :00 (two) Medical times Branch daily. levothyroxi 2020- No [id number] 150ug Take 1 Univers ne 150 mcg 05-07 tablet by ity of tablet 00:00: 00:00 mouth [place] 00 :00 every Medical morning. Branch buPROPion 2020- No [id number] 150mg Take 1 [facility] XL 05-07 tablet by ity of (WELLBUTRIN 00:[place] XL[place] 150 mg 00 :00 daily. Medical 24 hr Branch tablet busPIRone 5 2020- No [id number] 5mg Take 1 Univers mg tablet 05-07 tablet by ity of 00:00: 00:00 mouth 2 [place] 00 :00 (two) Medical times Branch daily. levothyroxi 2020- No [id number] 150ug Take 1 Univers ne 150 mcg 05-07 tablet by ity of tablet 00:00: 00:00 mouth [place] 00 :00 every Medical morning. Branch Vital Signs Vital Name Observation Time Observation Value Comments Source Systolic blood 2021-08-16 22:21:00 194 mm[facility]Hg[facility] Diastolic blood 2021-08-16 22:21:00 91 mm[facility]Hg[facility] Heart rate 2021-08-16 22:20:00 66 /min [facility] Body height 2021-08-16 22:20:00 167.6 cm [facility] Body weight 2021-08-16 22:20:00 64.411 kg [facility] BMI 2021-08-16 22:20:00 22.92 kg/m2 Universi [facility] Procedures This patient has no known procedures. Encounters Start End Encounter Admission Attending Care Care Encounter Source Date/Time Date/Time Type Type Clinicians Facility Department ID 2021-06-23 Inpatient ER RISHABH SANTOS Gastro [id number] 50 [facility] 01:38:07 KATIANA 2021-08-16 2021-08-16 Office [facility] [id number] Univers 16:13:41 16:28:41 Visit [facility] [id number] it y of Eulogio UQINTERO [id number] Mark as NATE?BLEA [id number] [address] MEDICAL OFFICE BUILDING 2021-08-16 2021-08-16 [facility] [id number] Univers 16:15:00 16:15:00 [place] 2019-11-13 2019-11-13 Emergency X [facility] ERT [id number] Univers 12:50:48 15:36:00 [place] [facility] Results Test Description Test Time Test Comments Results Result Sourc e Comments TISSUE EXAM 2020-04-21 Surgical Pathology Report 16:49:00 Case: [id number] Authorizing Provider: Felix Banks MD Collected: 04/18/2020 02:34 PM Ordering Location: [address] Received: 04/20/2020 08:22 AM Service Pathologist: Keyona Collado MD Specimens: A) - Duodenum, thickened and inflammed duodenum fold r/o polyp adenoma B) - Biopsy, Gastric, random gastric bx r/o h.pylori C) - Biopsy, Esophagus, esophageal bx r/o EOE A. DUODENUM, ENDOSCOPIC MUCOSAL BIOPSIES- DUODENAL MUCOSA WITH PRESERVED VILLOUS ARCHITECTURE AND FOCAL SURFACE GASTRIC METAPLASIA- NO SIGNIFICANT ACTIVE INFLAMMATION OR DYSPLASIAB. STOMACH, ENDOSCOPIC MUCOSAL BIOPSIES- ANTRAL AND OXYNTIC MUCOSA WITH NO SIGNIFICANT DIAGNOSTIC ALTERATIONS- NEGATIVE FOR HELICOBACTER PYLORI- NEGATIVE FOR INTESTINAL METAPLASIA, DYSPLASIA OR CARCINOMAC. MID ESOPHAGUS BIOSPY:- SQUAMOUS EPITHELIUM WITH MILD NONSPECIFIC REACTIVE CHANGES- NO INTRAEPITHELIAL EOSINOPHILS ARE SEEN- see comment Signing Pathologist Direct Phone Line: [phone] y signed by Keyona Collado MD on 04/21/2020 at 4:49 PMSpecimen C. The features are nonspecific and may represent reflux associated changes in the appropriate clinical and endoscopic setting.[id number] x3, 81032Scor deficiency anemia.A. DuodenumB. Gastric biopsyC. Esophagus biopsy A. Received in formalin labeled with the patient's name, accession number and "duodenum" are multiple hyde-pink tissue fragments measuring up to 0.2 cm in greatest dimension, which are filtered and submitted in toto in A1.Part B. Received in formalin labeled with the patient's name, accession number and "gastric biopsy" are three hyde-pink tissue fragment measuring up to 0.3 cm in greatest dimension, which are filtered and submitted in toto in B1.C. Received in formalin labeled with the patient's name, accession number and "esophagus biopsy" are four hyde-pink tissue fragments measuring up to 0.3 cm in greatest dimension, which are filtered and submitted in toto in C1. PA/Anthony.Microscopic examination is performed and the findings are incorporated in the diagnostic line. B. Microscopic examination is performed and the findings are incorporated in the diagnostic line. Warthin starry stain is negative for Helicobacter pylori. C. Section shows squamous (esophageal) mucosa with intercellular edema and ballooned squamous cells. No significant basal cell hyperplasia, intraepithelial lymphocytes or vascular congestion is seen. No intraepithelial eosinophils are present. The interpretation of this case included the use of immunohistochemistry or special stains.Control Slides Examined: In-house known positive controls were evaluated along with the test tissue. These control slides run alongside of the patients sample show appropriate staining. Internal positive and negative controls when available are evaluated Immunohistochemistry technical testing was performed at [facility], Pathology Laboratory where it was developed and its performance characteristics were determined. It has not been cleared or approved by the U.S. Food and Drug Administration. The FDA has determined that such clearance or approval is not necessary. The test is used for clinical purposes. It should not be regarded as investigational or for research. This laboratory is certified under the Clinical Laboratory Improvement Amendments of 1988 (CLIA-88) as qualified to perform high complexity clinical laboratory testing. BASIC METABOLIC PANEL 2020-04-19 06:10:00 Test Item Value Reference Range Interpretation Comme nts SODIUM (BEAKER) (test code 139 meq/L 136-145 = 381) POTASSIUM (BEAKER) (test 3.9 meq/L 3.5-5.1 code = 379) CHLORIDE (BEAKER) (test 110 meq/L 98-107 H code = 382) CO2 (BEAKER) (test code = 23 meq/L 22-29 355) BLOOD UREA NITROGEN 11 mg/dL 7-21 (BEAKER) (test code = 354) CREATININE (BEAKER) (test 1.17 mg/dL 0.57-1.25 code = 358) GLUCOSE RANDOM (BEAKER) 102 mg/dL 70-105 (test code = 652) CALCIUM (BEAKER) (test code 8.5 mg/dL 8.4-10.2 = 697) EGFR (BEAKER) (test code = 47 mL/min/1.73 sq m ESTIMATED GFR IS NOT 1092) ACCURATE CRE ATININE CLEARANCE IN UT EDICTING GLOMERULAR FILT RATION RATE. ESTIMATED GFR IS NOT APPLICABLE FOR DIALYSIS PATIENTS. Mushroom Packer ID - [id number] (HEMOGRAM ONLY)2020-04-19 05:45:00 Test Item Value Reference Range Interpretation Comments WHITE BLOOD CELL COUNT (BEAKER) 6.4 K/ L 3.5-10.5 (test code = 775) RED BLOOD CELL COUNT (BEAKER) 3.40 M/ L 3.93-5.22 L (test code = 761) HEMOGLOBIN (BEAKER) (test code = 8.0 GM/DL 11.2-15.7 L 410) HEMATOCRIT (BEAKER) (test code = 27.4 % 34.1-44.9 L 411) MEAN CORPUSCULAR VOLUME (BEAKER) 80.6 fL 79.4-94.8 (test code = 753) MEAN CORPUSCULAR HEMOGLOBIN 23.5 pg 25.6-32.2 L (BEAKER) (test code = 751) MEAN CORPUSCULAR HEMOGLOBIN CONC 29.2 GM/DL 32.2-35.5 L (BEAKER) (test code = 752) RED CELL DISTRIBUTION WIDTH 19.9 % 11.7-14.4 H (BEAKER) (test code = 412) PLATELET COUNT (BEAKER) (test 358 K/CU MM 150-450 code = 756) MEAN PLATELET VOLUME (BEAKER) 9.6 fL 9.4-12.3 (test code = 754) NUCLEATED RED BLOOD CELLS 0 /100 WBC 0-0 (BEAKER) (test code = 413) [id number] 05:41:00 Test Item Value Reference Range Interpretation Comments CORTISOL, TOTAL (BEAKER) (test code 7.1 ug/dL 3.7-19.4 = 2755) Mushroom Packer ID - PIAYA LBASIC METABOLIC [id number] 04:01:00 Test Item Value Reference Range Interpretation Comments SODIUM (BEAKER) 138 meq/L 136-145 (test code = 381) POTASSIUM (BEAKER) 4.6 meq/L 3.5-5.1 (test code = 379) CHLORIDE (BEAKER) 113 meq/L 98-107 H (test code = 382) CO2 (BEAKER) (test 22 meq/L 22-29 code = 355) BLOOD UREA NITROGEN 10 mg/dL 7-21 (BEAKER) (test code = 354) CREATININE (BEAKER) 1.08 mg/dL 0.57-1.25 (test code = 358) GLUCOSE RANDOM 76 mg/dL 70-105 (BEAKER) (test code = 652) CALCIUM (BEAKER) 8.3 mg/dL 8.4-10.2 L (test code = 697) EGFR (BEAKER) (test 51 mL/min/1.73 ESTIMA BHAVANA GFR IS code = 1092) sq m NOT ACCURATE CREATININE CLEARANCE IN PREDICTING GLOMERULAR FILTRATION RATE . ESTIMATED GFR I S NOT APPLICABLE FOR DIALYSIS PATIEN TS. Mushroom Packer ID - EDASIHEMOGLOBIN AND [id number] 03:00:00 Test Item Value Reference Range Interpretation Comments HEMOGLOBIN (BEAKER) (test code = 7.7 GM/DL 11.2-15.7 L 410) HEMATOCRIT (BEAKER) (test code = 25.7 % 34.1-44.9 L 411) Mushroom Packer ID - [id number] (HEMOGRAM ONLY)2020-04-18 03:00:00 Test Item Value Reference Range Interpretation Comments WHITE BLOOD CELL COUNT (BEAKER) 5.2 K/ L 3.5-10.5 (test code = 775) RED BLOOD CELL COUNT (BEAKER) 3.22 M/ L 3.93-5.22 L (test code = 761) HEMOGLOBIN (BEAKER) (test code = 7.7 GM/DL 11.2-15.7 L 410) HEMATOCRIT (BEAKER) (test code = 25.7 % 34.1-44.9 L 411) MEAN CORPUSCULAR VOLUME (BEAKER) 79.8 fL 79.4-94.8 (test code = 753) MEAN CORPUSCULAR HEMOGLOBIN 23.9 pg 25.6-32.2 L (BEAKER) (test code = 751) MEAN CORPUSCULAR HEMOGLOBIN CONC 30.0 GM/DL 32.2-35.5 L (BEAKER) (test code = 752) RED CELL DISTRIBUTION WIDTH 19.3 % 11.7-14.4 H (BEAKER) (test code = 412) PLATELET COUNT (BEAKER) (test 342 K/CU MM 150-450 code = 756) MEAN PLATELET VOLUME (BEAKER) 9.0 fL 9.4-12.3 L (test code = 754) NUCLEATED RED BLOOD CELLS 0 /100 WBC 0-0 (BEAKER) (test code = 413) SARS-COV2/RT-PCR ([facility])2020-04-17 14:53:00 Test Item Value Reference Range Interpretation Comments SARS-COV2/RT-PCR (test Negative Not Detected, Negative, code = 7814804) See external report for linked test SARS-COV-2 PERFORMING LAB [facility] (test code = 2240031) Negative result for this test determines that SARS-CoV-2 RNA was not present in the specimen above the Limit of Detection (LOD). However, Negative results do not preclude SARS-CoV-2 infection and should not be used as the sole basis for treatment or patient management decisions. Negative results mustbe combined with clinical observations, patient history, and epidemiological information. A false negative result may occur if a specimen is improperly collected, transported or handled. A false negative result should be considered if patient's recent exposures or clinical presentation indicate that COVID-19 (SARS-CoV-2) is likely and diagnostic tests for other causes of illness are negative. Re-testing should be considered in cases of suspected false negatives.The limit of detection for this assay is 800 copies/mL.This SARS CoV-2 test is a real-time RT-PCR test intended for the qualitative detection of nucleic acid from SARS-CoV-2 in a nasopharyngeal swab specimen collected from individuals suspected of COVID-19 by their healthcare provider.This test has not been Food and Drug Administration (FDA) cleared or approved. This is a modified version of an approved Emergency Use Authorization (EUA) and is in the process of review by the FDA. Once authorized by the FDA, the issued EUA will be effective until the declaration that circumstances exist justifying the authorization of the emergency use of in vitro diagnostic tests for detection and/or diagnosis of COVID-19 is terminated under Section 564(b)(2) of the Act or the EUA is revoked under Section 564(g) of the Act.Fact Sheet for Healthcare Providers:https://www.[employer]/sites/default/files/product/documents/Fact_Shee q_ZC_Fqqjkcily_Drpb_DHGB-ZgG-5.pdfFact Sheet for Healthcare Patients:https://www.[employer]/sites/default/files/product/ documents/Zjgr_Zuium_Jsjhvekh_Tzuf_PXSC-NpI-4.pdfPerforming Laboratory:[address] [place], [place] [address]VU, BRAIN, WITHOUT [id number] 11:46:00FINAL REPORT CT, BRAIN, WITHOUT CONTRAST INDICATION: slurred speech x weeks, weakness, eval for CVA TECHNIQUE: Noncontrast axial imaging was obtained from the vertex to the skull base. Axial images were reconstructed using a bone algorithm. DOSE REDUCTION: Dose modulation, iterative reconstruction, and/or weight-based adjustment of the mA/kV was utilized to reduce the radiationdose to as low as reasonably achievable. COMPARISON: None. FINDINGS: Cerebral parenchyma: No discernible byrne-white disruption. No parenchymal hemorrhage. Moderate volume loss. The white matter changesare seen bilaterally with greatest concentration in the right parietal lobe.Midline structures: Normally positioned.Cerebellum and brainstem: Commensurate volume loss.Ventricles: Normal volume.Extra-axial spaces: Unremarkable. Calvarium and skull base: Intact.Paranasal sinuses and mastoid air cells: Visible chambers are clear.Orbital contents: Included portions unremarkable. Additional findings: None. IMPRESSION: Chronic involutional changes without acute intracranial abnormality. If there is persi stent clinical concern for intracranial pathology, MR examination is recommended for further characterization. Signed: JR Gan [facility] Verified Date/Time: 04/17/2020 11:46:51 ReadingLocation: [facility] B1 C013V Neuro Reading Room TRDIPTI [id number] 10:30:00 Test Item Value Reference Range Interpretation Comments TROPONIN I (BEAKER) (test code = 397) < ng/mL 0.00-0.03 Troponin I (TnI) levels must be interpreted in the context of the presenting symptoms and the clinical findings. Elevated TnI levels indicate myocardial damage, but are not specific for ischemic heart disease. Elevated TnI levels are seen in patients with other cardiac conditions (including myocarditis and congestive heart failure), and slight TnI elevations occur in patients with other conditions, including sepsis, renal failure, acidosis, acute neurological disease, and persistent tachyarrhythmia.Mushroom Packer ID - [id number] 10:24:00 Test Item Value Reference Range Interpretation Comments LIPASE (BEAKER) (test code = 749) 30 U/L 8-78 Mushroom Packer ID - NTPCOMPREHENSIVE METABOLIC [id number] 10:17:00 Test Item Value Reference Range Interpretation Comments TOTAL PROTEIN 7.1 gm/dL 6.0-8.3 (BEAKER) (test code = 770) ALBUMIN (BEAKER) 4.0 g/dL 3.5-5.0 (test code = 1145) ALKALINE PHOSPHATASE 84 U/L 40-150 (BEAKER) (test code = 346) BILIRUBIN TOTAL < mg/dL 0.2-1.2 (BEAKER) (test code = 377) SODIUM (BEAKER) (test 136 meq/L 136-145 code = 381) POTASSIUM (BEAKER) 4.6 meq/L 3.5-5.1 (test code = 379) CHLORIDE (BEAKER) 110 meq/L 98-107 H (test code = 382) CO2 (BEAKER) (test 20 meq/L 22-29 L code = 355) BLOOD UREA NITROGEN 15 mg/dL 7-21 (BEAKER) (test code = 354) CREATININE (BEAKER) 1.17 mg/dL 0.57-1.25 (test code = 358) GLUCOSE RANDOM 95 mg/dL 70-105 (BEAKER) (test code = 652) CALCIUM (BEAKER) 9.1 mg/dL 8.4-10.2 (test code = 697) AST (SGOT) (BEAKER) 18 U/L 5-34 (test code = 353) ALT (SGPT) (BEAKER) 10 U/L 6-55 (test code = 347) EGFR (BEAKER) (test 47 mL/min/1.73 ESTIMA BHAVANA GFR IS code = 1092) sq m NOT ACCURATE CREATININE CLEARANCE IN PREDICTING GLOMERULAR FILTRATION RATE . ESTIMATED GFR I S NOT APPLICABLE FOR DIALYSIS PATIEN TS. Mushroom Packer ID - [id number] 09:59:00 Test Item Value Reference Range Interpretation Comments FERRITIN (BEAKER) (test code = 361) < ng/mL 5.00-275.00 L Mushroom Packer ID - NTPTSH/FREE T4 IF [id number] 09:50:00 Test Item Value Reference Range Interpretation Comments THYROID STIMULATING HORMONE 4.140 uIU/mL 0.350-4.940 (BEAKER) (test code = 772) Mushroom Packer ID - NTPVITAMIN B12 AND [id number] 09:50:00 Test Item Value Reference Range Interpretation Comments VITAMIN B12 (BEAKER) (test code = 332 pg/mL 213-816 774) FOLATE (BEAKER) (test code = 362) 6.20 ng/mL >=7.00 L Mushroom Packer ID - NTPCBC W/PLT COUNT & AUTO [id number] 09:28:00 Test Item Value Reference Range Interpretation Comments WHITE BLOOD CELL COUNT (BEAKER) 5.3 K/ L 3.5-10.5 (test code = 775) RED BLOOD CELL COUNT (BEAKER) 2.95 M/ L 3.93-5.22 L (test code = 761) HEMOGLOBIN (BEAKER) (test code = 6.3 GM/DL 11.2-15.7 L 410) HEMATOCRIT (BEAKER) (test code = 22.5 % 34.1-44.9 L 411) MEAN CORPUSCULAR VOLUME (BEAKER) 76.3 fL 79.4-94.8 L (test code = 753) MEAN CORPUSCULAR HEMOGLOBIN 21.4 pg 25.6-32.2 L (BEAKER) (test code = 751) MEAN CORPUSCULAR HEMOGLOBIN CONC 28.0 GM/DL 32.2-35.5 L (BEAKER) (test code = 752) RED CELL DISTRIBUTION WIDTH 17.7 % 11.7-14.4 H (BEAKER) (test code = 412) PLATELET COUNT (BEAKER) (test 395 K/CU MM 150-450 code = 756) MEAN PLATELET VOLUME (BEAKER) 9.2 fL 9.4-12.3 L (test code = 754) NUCLEATED RED BLOOD CELLS 0 /100 WBC 0-0 (BEAKER) (test code = 413) NEUTROPHILS RELATIVE PERCENT 69 % (BEAKER) (test code = 429) LYMPHOCYTES RELATIVE PERCENT 16 % (BEAKER) (test code = 430) MONOCYTES RELATIVE PERCENT 13 % (BEAKER) (test code = 431) EOSINOPHILS RELATIVE PERCENT 1 % (BEAKER) (test code = 432) BASOPHILS RELATIVE PERCENT 0 % (BEAKER) (test code = 437) NEUTROPHILS ABSOLUTE COUNT 3.68 K/ L 1.56-6.13 (BEAKER) (test code = 670) LYMPHOCYTES ABSOLUTE COUNT 0.84 K/ L 1.18-3.74 L (BEAKER) (test code = 414) MONOCYTES ABSOLUTE COUNT (BEAKER) 0.69 K/ L 0.24-0.36 H (test code = 415) EOSINOPHILS ABSOLUTE COUNT 0.06 K/ L 0.04-0.36 (BEAKER) (test code = 416) BASOPHILS ABSOLUTE COUNT (BEAKER) 0.02 K/ L 0.01-0.08 (test code = 417) IMMATURE GRANULOCYTES-RELATIVE 0 % 0-1 PERCENT (BEAKER) (test code = 2801) IRON, TIBC, % SAT. (WITHOUT FERRITIN)2020-04-17 09:15:00 Test Item Value Reference Range Interpretation Comments IRON (BEAKER) (test code = 547) 10.0 ug/dL 40.0-160.0 L TOTAL IRON BINDING CAPACITY 491 ug/dL 250-450 H (BEAKER) (test code = 769) IRON % SATURATION (2) (BEAKER) 2 % 20-55 L (test code = 2590) Mushroom Packer ID - [id number] 09:10:00 Test Item Value Reference Range Interpretation Comments PROTIME (BEAKER) (test code = 14.3 seconds 11.9-14.2 H 759) INR (BEAKER) (test code = 370) 1.1 <=5.9 Effective 02/13/2019: PT Reference Range ChangeNew: 11.9-14.2 Previous: 11.7- 14.7RECOMMENDED COUMADIN/WARFARIN INR THERAPY RANGESSTANDARD DOSE: 2.0-3.0 Includes: PROPHYLAXIS for venous thrombosis, systemic embolization; TREATMENT for venous thrombosis and/or pulmonary embolus.HIGH RISK: Target INR is2.5-3.5 for patients wiht mechanical heart valves.CBC W/PLT COUNT & AUTO [id number] 07:04:00 Test Item Value Reference Range Interpretation Comments WHITE BLOOD CELL COUNT (BEAKER) 5.8 K/ L 3.5-10.5 (test code = 775) RED BLOOD CELL COUNT (BEAKER) 2.95 M/ L 3.93-5.22 L (test code = 761) HEMOGLOBIN (BEAKER) (test code = 8.1 GM/DL 11.2-15.7 L 410) HEMATOCRIT (BEAKER) (test code = 26.9 % 34.1-44.9 L 411) MEAN CORPUSCULAR VOLUME (BEAKER) 91.2 fL 79.4-94.8 (test code = 753) MEAN CORPUSCULAR HEMOGLOBIN 27.5 pg 25.6-32.2 (BEAKER) (test code = 751) MEAN CORPUSCULAR HEMOGLOBIN CONC 30.1 GM/DL 32.2-35.5 L (BEAKER) (test code = 752) RED CELL DISTRIBUTION WIDTH 21.7 % 11.7-14.4 H (BEAKER) (test code = 412) PLATELET COUNT (BEAKER) (test 340 K/CU MM 150-450 code = 756) MEAN PLATELET VOLUME (BEAKER) 9.8 fL 9.4-12.3 (test code = 754) NUCLEATED RED BLOOD CELLS 0 /100 WBC 0-0 (BEAKER) (test code = 413) NEUTROPHILS RELATIVE PERCENT 64 % (BEAKER) (test code = 429) LYMPHOCYTES RELATIVE PERCENT 23 % (BEAKER) (test code = 430) MONOCYTES RELATIVE PERCENT 8 % (BEAKER) (test code = 431) EOSINOPHILS RELATIVE PERCENT 4 % (BEAKER) (test code = 432) BASOPHILS RELATIVE PERCENT 1 % (BEAKER) (test code = 437) NEUTROPHILS ABSOLUTE COUNT 3.68 K/ L 1.56-6.13 (BEAKER) (test code = 670) LYMPHOCYTES ABSOLUTE COUNT 1.36 K/ L 1.18-3.74 (BEAKER) (test code = 414) MONOCYTES ABSOLUTE COUNT (BEAKER) 0.46 K/ L 0.24-0.36 H (test code = 415) EOSINOPHILS ABSOLUTE COUNT 0.21 K/ L 0.04-0.36 (BEAKER) (test code = 416) BASOPHILS ABSOLUTE COUNT (BEAKER) 0.05 K/ L 0.01-0.08 (test code = 417) IMMATURE GRANULOCYTES-RELATIVE 1 % 0-1 PERCENT (BEAKER) (test code = 2801) BASIC METABOLIC [id number] 06:54:00 Test Item Value Reference Range Interpretation Comments SODIUM (BEAKER) 141 meq/L 136-145 (test code = 381) POTASSIUM (BEAKER) 3.9 meq/L 3.5-5.1 (test code = 379) CHLORIDE (BEAKER) 111 meq/L 98-107 H (test code = 382) CO2 (BEAKER) (test 24 meq/L 22-29 code = 355) BLOOD UREA NITROGEN 13 mg/dL 7-21 (BEAKER) (test code = 354) CREATININE (BEAKER) 1.12 mg/dL 0.57-1.25 (test code = 358) GLUCOSE RANDOM 108 mg/dL 70-105 H (BEAKER) (test code = 652) CALCIUM (BEAKER) 8.7 mg/dL 8.4-10.2 (test code = 697) EGFR (BEAKER) (test 49 mL/min/1.73 ESTIMA BHAVANA GFR IS code = 1092) sq m NOT ACCURATE CREATININE CLEARANCE IN PREDICTING GLOMERULAR FILTRATION RATE . ESTIMATED GFR I S NOT APPLICABLE FOR DIALYSIS PATIEN TS. HEMOGLOBIN AND [id number] 23:13:00 Test Item Value Reference Range Interpretation Comments HEMOGLOBIN (BEAKER) (test code = 7.8 GM/DL 11.2-15.7 L 410) HEMATOCRIT (BEAKER) (test code = 25.1 % 34.1-44.9 L 411) HEMOGLOBIN AND [id number] 18:29:00 Test Item Value Reference Range Interpretation Comments HEMOGLOBIN (BEAKER) (test code = 7.6 GM/DL 11.2-15.7 L 410) HEMATOCRIT (BEAKER) (test code = 24.4 % 34.1-44.9 L 411) HEMOGLOBIN AND [id number] 09:57:00 Test Item Value Reference Range Interpretation Comments HEMOGLOBIN (BEAKER) (test code = 7.2 GM/DL 11.2-15.7 L 410) HEMATOCRIT (BEAKER) (test code = 23.2 % 34.1-44.9 L 411) [id number] 05:50:00 Test Item Value Reference Range Interpretation Comments PHOSPHORUS (BEAKER) (test code = 2.9 mg/dL 2.3-4.7 604) [id number] 05:50:00 Test Item Value Reference Range Interpretation Comments MAGNESIUM (BEAKER) (test code = 2.0 mg/dL 1.6-2.6 627) BASIC METABOLIC [id number] 05:50:00 Test Item Value Reference Range Interpretation Comments SODIUM (BEAKER) 140 meq/L 136-145 (test code = 381) POTASSIUM (BEAKER) 3.6 meq/L 3.5-5.1 (test code = 379) CHLORIDE (BEAKER) 112 meq/L 98-107 H (test code = 382) CO2 (BEAKER) (test 22 meq/L 22-29 code = 355) BLOOD UREA NITROGEN 16 mg/dL 7-21 (BEAKER) (test code = 354) CREATININE (BEAKER) 1.09 mg/dL 0.57-1.25 (test code = 358) GLUCOSE RANDOM 85 mg/dL 70-105 (BEAKER) (test code = 652) CALCIUM (BEAKER) 8.1 mg/dL 8.4-10.2 L (test code = 697) EGFR (BEAKER) (test 51 mL/min/1.73 ESTIMA BHAVANA GFR IS code = 1092) sq m NOT ACCURATE CREATININE CLEARANCE IN PREDICTING GLOMERULAR FILTRATION RATE . ESTIMATED GFR I S NOT APPLICABLE FOR DIALYSIS PATIEN TS. HEPATIC FUNCTION [id number] 05:50:00 Test Item Value Reference Range Interpretation Comments TOTAL PROTEIN (BEAKER) (test code = 5.2 gm/dL 6.0-8.3 L 770) ALBUMIN (BEAKER) (test code = 1145) 3.3 g/dL 3.5-5.0 L BILIRUBIN TOTAL (BEAKER) (test code 0.3 mg/dL 0.2-1.2 = 377) BILIRUBIN DIRECT (BEAKER) (test 0.1 mg/dL 0.1-0.5 code = 706) ALKALINE PHOSPHATASE (BEAKER) (test 61 U/L 40-150 code = 346) AST (SGOT) (BEAKER) (test code = 17 U/L 5-34 353) ALT (SGPT) (BEAKER) (test code = 7 U/L 6-55 347) CBC W/PLT COUNT & AUTO [id number] 05:40:00 Test Item Value Reference Range Interpretation Comments WHITE BLOOD CELL COUNT (BEAKER) 5.8 K/ L 3.5-10.5 (test code = 775) RED BLOOD CELL COUNT (BEAKER) 2.68 M/ L 3.93-5.22 L (test code = 761) HEMOGLOBIN (BEAKER) (test code = 7.3 GM/DL 11.2-15.7 L 410) HEMATOCRIT (BEAKER) (test code = 24.4 % 34.1-44.9 L 411) MEAN CORPUSCULAR VOLUME (BEAKER) 91.0 fL 79.4-94.8 (test code = 753) MEAN CORPUSCULAR HEMOGLOBIN 27.2 pg 25.6-32.2 (BEAKER) (test code = 751) MEAN CORPUSCULAR HEMOGLOBIN CONC 29.9 GM/DL 32.2-35.5 L (BEAKER) (test code = 752) RED CELL DISTRIBUTION WIDTH 22.0 % 11.7-14.4 H (BEAKER) (test code = 412) PLATELET COUNT (BEAKER) (test 291 K/CU MM 150-450 code = 756) MEAN PLATELET VOLUME (BEAKER) 9.6 fL 9.4-12.3 (test code = 754) NUCLEATED RED BLOOD CELLS 0 /100 WBC 0-0 (BEAKER) (test code = 413) NEUTROPHILS RELATIVE PERCENT 58 % (BEAKER) (test code = 429) LYMPHOCYTES RELATIVE PERCENT 27 % (BEAKER) (test code = 430) MONOCYTES RELATIVE PERCENT 9 % (BEAKER) (test code = 431) EOSINOPHILS RELATIVE PERCENT 5 % (BEAKER) (test code = 432) BASOPHILS RELATIVE PERCENT 1 % (BEAKER) (test code = 437) NEUTROPHILS ABSOLUTE COUNT 3.37 K/ L 1.56-6.13 (BEAKER) (test code = 670) LYMPHOCYTES ABSOLUTE COUNT 1.58 K/ L 1.18-3.74 (BEAKER) (test code = 414) MONOCYTES ABSOLUTE COUNT (BEAKER) 0.53 K/ L 0.24-0.36 H (test code = 415) EOSINOPHILS ABSOLUTE COUNT 0.27 K/ L 0.04-0.36 (BEAKER) (test code = 416) BASOPHILS ABSOLUTE COUNT (BEAKER) 0.04 K/ L 0.01-0.08 (test code = 417) IMMATURE GRANULOCYTES-RELATIVE 1 % 0-1 PERCENT (BEAKER) (test code = 2801) PROTHROMBIN [id number] 05:29:00 Test Item Value Reference Range Interpretation Comments PROTIME (BEAKER) (test code = 13.9 seconds 11.9-14.2 759) INR (BEAKER) (test code = 370) 1.1 <=5.9 Effective 02/13/2019: PT Reference Range ChangeNew: 11.9-14.2 Previous: 11.7- 14.7RECOMMENDED COUMADIN/WARFARIN INR THERAPY RANGESSTANDARD DOSE: 2.0-3.0 Includes: PROPHYLAXIS for venous thrombosis, systemic embolization; TREATMENT for venous thrombosis and/or pulmonary embolus.HIGH RISK: Target INR is2.5-3.5 for patients wiht mechanical heart valves.RAD, ABDOMEN/KUB, 1 VIEW [id number] 02:43:00Reason for exam:->bloatingShould this be performed at the bedside?->YesFINAL REPORT CLINICAL HISTORY: bloating TECHNIQUE: RAD, ABDOMEN/KUB, 1 VIEW AP COMPARISON: Radiograph the abdomen dated 06/07/2019. IMPRESSION: Nonspecific bowel gas pattern with slight interval increase in multiple prominent loops of small bowel within the left lower quadrant, nonspecific.. Moderate stool burden throughout the large bowel. Unchanged rounded calcifications in the right upper quadrant. Phleboliths overlie the pelvis. Signed: Guille Barraganeport Verified Date/Time: 06/16/2019 02:43:11 RAPID INFLUENZA A&B [id number] 01:49:00 Test Item Value Reference Range Interpretation Comments RAPID INFLUENZA A AG (BEAKER) Negative Negative, Inconclusive (test code = 1622) RAPID INFLUENZA B AG (BEAKER) Negative Negative, Inconclusive (test code = 1623) RAD, CHEST, 1 VIEW, NON [id number] 01:08:00Reason for exam:->coughShould this be performed at the bedside?->YesFINAL REPORT Chest, 1 view. History: Cough Comparison: None available. Findings: The cardiomediastinal silhouette and pulmonary vasculature are within normal limits for a portable exam. The lungs are clear without evidence of consolidation or effusion. The soft tissues and osseous structures are intact. IMPRESSION: No acute cardiopulmonary abnormality. Signed: [facility]ille [facility] Verified Date/Time: 06/16/2019 01:08:45 BLOOD [id number] 08:00:00 Test Item Value Reference Range Interpretation Comments CULTURE (BEAKER) (test No growth in 5 days code = 1095) BLOOD [id number] 20:01:00 Test Item Value Reference Range Interpretation Comments CULTURE (BEAKER) (test No growth in 5 days code = 1095) TISSUE [id number] 12:58:00Surgical Pathology Report Case: [id number] Authorizing Provider: Len Waggoner, Collected: 06/10/2019 1111 Ordering Location: [place] [address] ICU Received: 06/10/2019 1601 Pathologist: Fernando Plascencia MD Specimens: A) - Biopsy, Gastric, Bx. Random B) -Biopsy, Gastroesophageal Junction, Bx A. STOMACH, RANDOM BIOPSIES: - ANTRAL MUCOSA WITH REACTIVE GASTROPATHY AND MILD CHRONIC INACTIVE GASTRITIS - OXYNTIC MUCOSA WITH NO SIGNIFICANT DIAGNOSTIC ABNORMALITY - NEGATIVE FOR HELICOBACTER PYLORI ORGANISMS BY WARTHIN STARRY STAIN - NEGATIVE FOR INTESTINAL METAPLASIA, DYSPLASIA, MALIGNANCYB. GASTROESOPHAGEAL JUNCTION, BIOPSY: - JUNCTIONAL MUCOSA WITH NO SIGNIFICANT DIAGNOSTIC ABNORMALITY - NEGATIVE FOR INTESTINAL METAPLASIA OR ABRAHAM'S ESOPHAGUS - NEGATIVE FOR DYSPLASIA/ MALIGNANCY Signing Pathologist Direct Phone Line: [phone] signed by Fernando Plascencia MD on 06/12/2019 at 12:58 PMB. Detached/ loosely adherent refractile foreign material is seen in the biopsy, likely representing pill fragments. Clinical and endoscopic correlation is recommended.[id number] bleedingA. Specimen is received in formalin labeled "biopsy gastric" and consists of three fragments of hyde-pink soft tissue measuring 0.2 cm each. The specimen is submitted entirely in cassette A1. B. Specimen is received in formalin labeled "biops gastric esophagus" and consists of multiple fragments of hyde-pink soft tissue measuring less than 0.1 cm to 0.2 cm in greatest dimension. The specimen is submitted entirely in cassette B1. WA/plPerformed.The interpretation of this case included the use of immunohistochemistry or special stains.Control Slides Examined: In-house known positive controls were evaluated along with the test tissue. These control slides run alongside of the patients sample show appropriate staining. Internal positive and negative controls when available are evaluated Immunohistochemistry technical testing was performed at [facility], Pathology Laboratory where it was developed and its performance characteristics were determined. It has not been cleared or approved by the U.S. Food and Drug Administration. The FDA has determined that such clearance or approval isnot necessary. The test is used for clinical purposes. It should not be regarded as investigational or for research. This laboratory is certified under the Clinical Laboratory Improvement Amendments [id number] (CLIA-88) as qualified to perform high complexity clinical laboratory testing.POCT- GLUCOSE [id number] 11:45:00 Test Item Value Reference Range Interpretation Comments POC-GLUCOSE METER 85 mg/dL 70-110 TESTED AT [place] [address] ([employer]) (test code = [facility] [address] 1538) T4, [id number] 08:58:00 Test Item Value Reference Range Interpretation Comments FREE T4 ([facility]) (test code = 655) 0.58 ng/dL 0.70-1.48 L POCT-GLUCOSE [id number] 08:02:00 Test Item Value Reference Range Interpretation Comments POC-GLUCOSE METER 91 mg/dL 70-110 TESTED AT [place] [address] ([employer]) (test code = [facility] [address] 1538) TSH/FREE T4 IF [id number] 06:57:00 Test Item Value Reference Range Interpretation Comments THYROID STIMULATING HORMONE (BEAKER) > uIU/mL 0.35-4.94 H (test code = 772) CBC (HEMOGRAM ONLY)2019-06-12 06:49:00 Test Item Value Reference Range Interpretation Comments WHITE BLOOD CELL COUNT (BEAKER) 8.2 K/ L 3.5-10.5 (test code = 775) RED BLOOD CELL COUNT (BEAKER) 2.95 M/ L 3.93-5.22 L (test code = 761) HEMOGLOBIN (BEAKER) (test code = 8.1 GM/DL 11.2-15.7 L 410) HEMATOCRIT (BEAKER) (test code = 26.2 % 34.1-44.9 L 411) MEAN CORPUSCULAR VOLUME (BEAKER) 88.8 fL 79.4-94.8 (test code = 753) MEAN CORPUSCULAR HEMOGLOBIN 27.5 pg 25.6-32.2 (BEAKER) (test code = 751) MEAN CORPUSCULAR HEMOGLOBIN CONC 30.9 GM/DL 32.2-35.5 L (BEAKER) (test code = 752) RED CELL DISTRIBUTION WIDTH 20.6 % 11.7-14.4 H (BEAKER) (test code = 412) PLATELET COUNT (BEAKER) (test 269 K/CU MM 150-450 code = 756) MEAN PLATELET VOLUME (BEAKER) 10.2 fL 9.4-12.3 (test code = 754) NUCLEATED RED BLOOD CELLS 0 /100 WBC 0-0 (BEAKER) (test code = 413) [id number] 06:42:00 Test Item Value Reference Range Interpretation Comments PHOSPHORUS (BEAKER) (test code = 2.7 mg/dL 2.3-4.7 604) [id number] 06:42:00 Test Item Value Reference Range Interpretation Comments MAGNESIUM (BEAKER) (test code = 2.0 mg/dL 1.6-2.6 627) COMPREHENSIVE METABOLIC [id number] 06:42:00 Test Item Value Reference Range Interpretation Comments TOTAL PROTEIN 5.3 gm/dL 6.0-8.3 L (BEAKER) (test code = 770) ALBUMIN (BEAKER) 3.2 g/dL 3.5-5.0 L (test code = 1145) ALKALINE PHOSPHATASE 59 U/L 40-150 (BEAKER) (test code = 346) BILIRUBIN TOTAL 0.1 mg/dL 0.2-1.2 L (BEAKER) (test code = 377) SODIUM (BEAKER) (test 142 meq/L 136-145 code = 381) POTASSIUM (BEAKER) 3.9 meq/L 3.5-5.1 (test code = 379) CHLORIDE (BEAKER) 114 meq/L 98-107 H (test code = 382) CO2 (BEAKER) (test 21 meq/L 22-29 L code = 355) BLOOD UREA NITROGEN 22 mg/dL 7-21 H (BEAKER) (test code = 354) CREATININE (BEAKER) 1.08 mg/dL 0.57-1.25 (test code = 358) GLUCOSE RANDOM 75 mg/dL 70-105 (BEAKER) (test code = 652) CALCIUM (BEAKER) 8.3 mg/dL 8.4-10.2 L (test code = 697) AST (SGOT) (BEAKER) 14 U/L 5-34 (test code = 353) ALT (SGPT) (BEAKER) 8 U/L 6-55 (test code = 347) EGFR (BEAKER) (test 51 mL/min/1.73 ESTIMA BHAVANA GFR IS code = 1092) sq m NOT ACCURATE CREATININE CLEARANCE IN PREDICTING GLOMERULAR FILTRATION RATE . ESTIMATED GFR I S NOT APPLICABLE FOR DIALYSIS PATIEN TS. POCT-GLUCOSE [id number] 23:02:00 Test Item Value Reference Range Interpretation Comments POC-GLUCOSE METER 113 mg/dL 70-110 H TESTED AT [facility] 6720 (BEAKER) (test code = AUDI Pollock [facility] 1538) [address] T3, [id number] 18:30:00 Test Item Value Reference Range Interpretation Comments T3 FREE (BEAKER) < pg/mL 1.71-3.71 L Testing per formed at [employer] (test code = 908) DIAGNOSTIC S [address] [address] [id number] 18:30:00 Test Item Value Reference Range Interpretation Comments T3 TOTAL (BEAKER) 27 ng/dL 48-159 L Testing pe rformed at (test code = 656) [facility], [address] [facility], [place] [address] POCT-GLUCOSE [id number] 18:14:00 Test Item Value Reference Range Interpretation Comments POC-GLUCOSE METER 106 mg/dL 70-110 TESTED AT [place] [address] ([facility]) (test code = AUDI Pollock [facility] 1538) [id number] HEMOGLOBIN AND [id number] 18:09:00 Test Item Value Reference Range Interpretation Comments HEMOGLOBIN (BEAKER) (test code = 8.4 GM/DL 11.2-15.7 L 410) HEMATOCRIT ([facility]) (test code = 26.4 % 34.1-44.9 L 411) POCT-GLUCOSE [id number] 12:28:00 Test Item Value Reference Range Interpretation Comments POC-GLUCOSE METER 132 mg/dL 70-110 H TESTED AT [place] [address] ([facility]) (test code = AUDI Pollock [facility] 1538) [address] CORTISOL,60 [id number] 10:34:00 Test Item Value Reference Range Interpretation Comments CORTISOL BASELINE NETWORKED 8.4 mcg/dL (BEAKER) (test code = 2307) CORTISOL 30 MINUTE NETWORKED 16.1 mcg/dL (AKER) (test code = 2308) CORTISOL, 60 MINUTE (AKER) 18.2 ug/dL (test code = 1805) ACTH STIMULATION TEST INTERPRETATION GUIDELINES(Synonyms: Cortrosyn Test, Cosyntropin or Corticotropin Stimulation Test)Adenocorticotropic hormone (ACTH)is a tropic hormone, made in the pituitary gland, which travels trhough the bloodstream and stimulates the cortex of the adrenal glands to release cortisol. Cortisol is a primary hormone, which aids the body's metabolism of fats, carbohydrates, and protein as well as sodium and potassium regulation.ACTH Stimulation Test: Exogenous administrationof biologically active ACTH stimulates the secretion of cortisol from the adrenal gland. This test is used to evaluate adrenal function by measuring cortisol levels at baseline and at 30 and 60 minutesafter the administration of 250 micrograms of cosyntropin (Cortrosyn). Patients who have received exogenous corticosteroids immediately prior to performing the ACTH Stimulation Test will often have elevated baseline cortisol levels, which may lead to erroneous interpretation of test results. The notable exception is with dexamethasone.Normal Response: An increase in cortisol after stimulation by ACTHis normal. Post-stimulation cortisol concentration should be greater than 20 mcg/dL or the rate of rise from baseline cortisol should be greater than or equal to 9 mcg/dL.Patients with sepsis or septicshock: According to a study by Stu et al (VIANEY 2000,283(8):3216-04), the ACTH Stimulation Test provides important prognostic information. This study defined 3 groups of patients with sepsis or septic shock: 1. Good Survival: Low basal cortisol (<or=34 mcg/dL) and high ACTH response (>9mcg/dL) 2. Intermediate Survival: Low basal cortisol (<34 mcg/dL) and low response to ACTH (<or=9 mcg/dL) OR High basal cortisol (>34 mcg/dL) or high ACTH response (>9 mcg/dL) 3.Poor Survival: High basal cortisol (>34 mcg/dL) and low ACTH response (<or=9 mcg/dL).Treatment of patients with relative adrenal dysfunction may be indicated based on test results and the cli nical condition of the patient. Additional information, including treatment recommendations, is available in critically ill patients, approved by the Pharmacy, Nutrition, and Therapeutics Committee on 08/27/2004 and available through the Pharmacy Policy and Procedure Section on The Source.Do not run this test if systemic hydrocortisone, methylprednisolone, prednisolone or prednisone has been administered within the past 24 hours. Draw baseline cortisol level just prior to cosyntropin administration. Administer cosyntropin 0.25 mg diluted in 2-5 mL of normal saline slow IV Push over a period of 2 minutes. Draw serum cortisol level 30 minutes after cosyntropin administration. Draw serum cortisollevel 60 minutes after cosyntropin administration.CORTISOL,30 MIN 2019-06-11 09:35:00 Test Item Value Reference Range Interpretation Comments CORTISOL BASELINE NETWORKED 8.4 mcg/dL (BEAKER) (test code = 2307) CORTISOL, 30 MINUTE (BEAKER) (test 16.1 ug/dL code = 1804) ACTH STIMULATION TEST INTERPRETATION GUIDELINES(Synonyms: Cortrosyn Test, Cosyntropin or Corticotropin Stimulation Test)Adenocorticotropic hormone (ACTH)is a tropic hormone, made in the pituitary gland, which travels trhough the bloodstream and stimulates the cortex of the adrenal glands to release cortisol. Cortisol is a primary hormone, which aids the body's metabolism of fats, carbohydrates, and protein as well as sodium and potassium regulation.ACTH Stimulation Test: Exogenous administrationof biologically active ACTH stimulates the secretion of cortisol from the adrenal gland. This test is used to evaluate adrenal function by measuring cortisol levels at baseline and at 30 and 60 minutesafter the administration of 250 micrograms of cosyntropin (Cortrosyn). Patients who have received exogenous corticosteroids immediately prior to performing the ACTH Stimulation Test will often have elevated baseline cortisol levels, which may lead to erroneous interpretation of test results. The notable exception is with dexamethasone.Normal Response: An increase in cortisol after stimulation by ACTHis normal. Post-stimulation cortisol concentration should be greater than 20 mcg/dL or the rate of rise from baseline cortisol should be greater than or equal to 9 mcg/dL.Patients with sepsis or septicshock: According to a study by Stu et al (VIANEY 2000,283(8):1038-45), the ACTH Stimulation Test provides important prognostic information. This study defined 3 groups of patients with sepsis or septic shock: 1. Good Survival: Low basal cortisol (<or=34 mcg/dL) and high ACTH response (>9mcg/dL) 2. Intermediate Survival: Low basal cortisol (<34 mcg/dL) and low response to ACTH (<or=9 mcg/dL) OR High basal cortisol (>34 mcg/dL) or high ACTH response (>9 mcg/dL) 3.Poor Survival: High basal cortisol (>34 mcg/dL) and low ACTH response (<or=9 mcg/dL).Treatment of patients with relative adrenal dysfunction may be indicated based on test results and the cli nical condition of the patient. Additional information, including treatment recommendations, is available in critically ill patients, approved by the Pharmacy, Nutrition, and Therapeutics Committee on 08/27/2004 and available through the Pharmacy Policy and Procedure Section on [employer] Source.Do not run this test if systemic hydrocortisone, methylprednisolone, prednisolone or prednisone has been administered within the past 24 hours. Draw baseline cortisol level just prior to cosyntropin administration. Administer cosyntropin 0.25 mg diluted in 2-5 mL of normal saline slow IV Push over a period of 2 minutes. Draw serum cortisol level 30 minutes after cosyntropin administration. Draw serum cortisollevel 60 minutes after cosyntropin administration. CORTISOL,[id number] 09:20:00 Test Item Value Reference Range Interpretation Comments CORTISOL, BASELINE ([facility]) (test 8.4 ug/dL code = 1803) ACTH STIMULATION TEST INTERPRETATION GUIDELINES(Synonyms: Cortrosyn Test, Cosyntropin or Corticotropin Stimulation Test)Adenocorticotropic hormone (ACTH)is a tropic hormone, made in the pituitary gland, which travels trhough the bloodstream and stimulates the cortex of the adrenal glands to release cortisol. Cortisol is a primary hormone, which aids the body's metabolism of fats, carbohydrates, and protein as well as sodium and potassium regulation.ACTH Stimulation Test: Exogenous administrationof biologically active ACTH stimulates the secretion of cortisol from the adrenal gland. This test is used to evaluate adrenal function by measuring cortisol levels at baseline and at 30 and 60 minutesafter the administration of 250 micrograms of cosyntropin (Cortrosyn). Patients who have received exogenous corticosteroids immediately prior to performing the ACTH Stimulation Test will often have elevated baseline cortisol levels, which may lead to erroneous interpretation of test results. The notable exception is with dexamethasone.Normal Response: An increase in cortisol after stimulation by ACTHis normal. Post-stimulation cortisol concentration should be greater than 20 mcg/dL or the rate of rise from baseline cortisol should be greater than or equal to 9 mcg/dL.Patients with sepsis or septicshock: According to a study by Stu et al (VIANEY 2000,283(8):1038-45), the ACTH Stimulation Test provides important prognostic information. This study defined 3 groups of patients with sepsis or septic shock: 1. Good Survival: Low basal cortisol (<or=34 mcg/dL) and high ACTH response (>9mcg/dL) 2. Intermediate Survival: Low basal cortisol (<34 mcg/dL) and low response to ACTH (<or=9 mcg/dL) OR High basal cortisol (>34 mcg/dL) or high ACTH response (>9 mcg/dL) 3.Poor Survival: High basal cortisol (>34 mcg/dL) and low ACTH response (<or=9 mcg/dL).Treatment of patients with relative adrenal dysfunction may be indicated based on test results and the cli nical condition of the patient. Additional information, including treatment recommendations, is available in critically ill patients, approved by the Pharmacy, Nutrition, and Therapeutics Committee on 08/27/2004 and available through the Pharmacy Policy and Procedure Section on The Source.Do not run this test if systemic hydrocortisone, methylprednisolone, prednisolone or prednisone has been administered within the past 24 hours. Draw baseline cortisol level just prior to cosyntropin administration. Administer cosyntropin 0.25 mg diluted in 2-5 mL of normal saline slow IV Push over a period of 2 minutes. Draw serum cortisol level 30 minutes after cosyntropin administration. Draw serum cortisollevel 60 minutes after cosyntropin administration.MAGNESIUM 2019-06-11 07:16:00 Test Item Value Reference Range Interpretation Comments MAGNESIUM (BEAKER) (test code = 2.0 mg/dL 1.6-2.6 627) COMPREHENSIVE METABOLIC [id number] 07:16:00 Test Item Value Reference Range Interpretation Comments TOTAL PROTEIN 5.5 gm/dL 6.0-8.3 L (BEAKER) (test code = 770) ALBUMIN (BEAKER) 3.3 g/dL 3.5-5.0 L (test code = 1145) ALKALINE PHOSPHATASE 58 U/L 40-150 (BEAKER) (test code = 346) BILIRUBIN TOTAL 0.2 mg/dL 0.2-1.2 (BEAKER) (test code = 377) SODIUM (BEAKER) (test 139 meq/L 136-145 code = 381) POTASSIUM (BEAKER) 4.1 meq/L 3.5-5.1 (test code = 379) CHLORIDE (BEAKER) 113 meq/L 98-107 H (test code = 382) CO2 (BEAKER) (test 19 meq/L 22-29 L code = 355) BLOOD UREA NITROGEN 27 mg/dL 7-21 H (BEAKER) (test code = 354) CREATININE (BEAKER) 1.15 mg/dL 0.57-1.25 (test code = 358) GLUCOSE RANDOM 97 mg/dL 70-105 (BEAKER) (test code = 652) CALCIUM (BEAKER) 8.4 mg/dL 8.4-10.2 (test code = 697) AST (SGOT) (BEAKER) 16 U/L 5-34 (test code = 353) ALT (SGPT) (BEAKER) 12 U/L 6-55 (test code = 347) EGFR (BEAKER) (test 48 mL/min/1.73 ESTIMA BHAVANA GFR IS code = 1092) sq m NOT ACCURATE CREATININE CLEARANCE IN PREDICTING GLOMERULAR FILTRATION RATE . ESTIMATED GFR I S NOT APPLICABLE FOR DIALYSIS PATIEN TS. [id number] 07:01:00 Test Item Value Reference Range Interpretation Comments PHOSPHORUS (BEAKER) (test code = 2.3 mg/dL 2.3-4.7 604) IRON, TIBC, % SAT. (WITHOUT FERRITIN)2019-06-11 06:27:00 Test Item Value Reference Range Interpretation Comments IRON (BEAKER) (test code = 547) 17.0 ug/dL 40.0-160.0 L TOTAL IRON BINDING CAPACITY 381 ug/dL 250-450 (BEAKER) (test code = 769) IRON % SATURATION (2) (BEAKER) 4 % 20-55 L (test code = 2590) VITAMIN B12 AND [id number] 06:14:00 Test Item Value Reference Range Interpretation Comments VITAMIN B12 (BEAKER) (test code = 285 pg/mL 213-816 774) FOLATE (BEAKER) (test code = 362) 6.3 ng/mL >=7.0 L [id number] 06:05:00 Test Item Value Reference Range Interpretation Comments CORTISOL, TOTAL (BEAKER) (test code 3.2 ug/dL 3.7-19.4 L = 2755) HIV-1 ANTIGEN WITH HIV-1/2 [id number] 06:04:00 Test Item Value Reference Range Interpretation Comments HIV-1 ANTIGEN WITH HIV 1\\T\\2 Nonreactive Nonreactive ANTIBODY (2) (BEAKER) (test code = 2586) [id number] 06:03:00 Test Item Value Reference Range Interpretation Comments FERRITIN (BEAKER) (test code = 361) 4 ng/mL 5-275 L CBC (HEMOGRAM ONLY)2019-06-11 05:08:00 Test Item Value Reference Range Interpretation Comments WHITE BLOOD CELL COUNT (BEAKER) 10.8 K/ L 3.5-10.5 H (test code = 775) RED BLOOD CELL COUNT (BEAKER) 2.95 M/ L 3.93-5.22 L (test code = 761) HEMOGLOBIN (BEAKER) (test code = 8.1 GM/DL 11.2-15.7 L 410) HEMATOCRIT (BEAKER) (test code = 25.9 % 34.1-44.9 L 411) MEAN CORPUSCULAR VOLUME (BEAKER) 87.8 fL 79.4-94.8 (test code = 753) MEAN CORPUSCULAR HEMOGLOBIN 27.5 pg 25.6-32.2 (BEAKER) (test code = 751) MEAN CORPUSCULAR HEMOGLOBIN CONC 31.3 GM/DL 32.2-35.5 L (BEAKER) (test code = 752) RED CELL DISTRIBUTION WIDTH 19.6 % 11.7-14.4 H (BEAKER) (test code = 412) PLATELET COUNT (BEAKER) (test 260 K/CU MM 150-450 code = 756) MEAN PLATELET VOLUME (BEAKER) 9.7 fL 9.4-12.3 (test code = 754) NUCLEATED RED BLOOD CELLS 0 /100 WBC 0-0 (BEAKER) (test code = 413) RETICULOCYTE [id number] 05:08:00 Test Item Value Reference Range Interpretation Comments RETICULOCYTE COUNT PCT (BEAKER) (test 2.9 % 0.5-1.7 H code = 575) POCT-GLUCOSE [id number] 22:01:00 Test Item Value Reference Range Interpretation Comments POC-GLUCOSE METER 132 mg/dL 70-110 H TESTED AT [facility] 6720 (BEAKER) (test code = AUDI ZHONG [place] 1538) [address] HEMOGLOBIN AND [id number] 21:02:00 Test Item Value Reference Range Interpretation Comments HEMOGLOBIN (BEAKER) (test code = 8.1 GM/DL 11.2-15.7 L 410) HEMATOCRIT (BEAKER) (test code = 25.5 % 34.1-44.9 L 411) T4, [id number] 11:38:00 Test Item Value Reference Range Interpretation Comments FREE T4 (BEAKER) (test code = 655) 0.46 ng/dL 0.70-1.48 L TSH/FREE T4 IF [id number] 11:00:00 Test Item Value Reference Range Interpretation Comments THYROID STIMULATING HORMONE 34.88 uIU/mL 0.35-4.94 H (BEAKER) (test code = 772) HEMOGLOBIN AND [id number] 10:21:00 Test Item Value Reference Range Interpretation Comments HEMOGLOBIN (BEAKER) (test code = 8.9 GM/DL 11.2-15.7 L 410) HEMATOCRIT (BEAKER) (test code = 27.3 % 34.1-44.9 L 411) [id number] 05:22:00 Test Item Value Reference Range Interpretation Comments PHOSPHORUS (BEAKER) (test code = 2.9 mg/dL 2.3-4.7 604) [id number] 05:22:00 Test Item Value Reference Range Interpretation Comments MAGNESIUM (BEAKER) (test code = 2.0 mg/dL 1.6-2.6 627) COMPREHENSIVE METABOLIC [id number] 05:22:00 Test Item Value Reference Range Interpretation Comments TOTAL PROTEIN 5.9 gm/dL 6.0-8.3 L (BEAKER) (test code = 770) ALBUMIN (BEAKER) 3.5 g/dL 3.5-5.0 (test code = 1145) ALKALINE PHOSPHATASE 61 U/L 40-150 (BEAKER) (test code = 346) BILIRUBIN TOTAL 0.4 mg/dL 0.2-1.2 (BEAKER) (test code = 377) SODIUM (BEAKER) (test 137 meq/L 136-145 code = 381) POTASSIUM (BEAKER) 4.1 meq/L 3.5-5.1 (test code = 379) CHLORIDE (BEAKER) 112 meq/L 98-107 H (test code = 382) CO2 (BEAKER) (test 17 meq/L 22-29 L code = 355) BLOOD UREA NITROGEN 31 mg/dL 7-21 H (BEAKER) (test code = 354) CREATININE (BEAKER) 1.06 mg/dL 0.57-1.25 (test code = 358) GLUCOSE RANDOM 83 mg/dL 70-105 (BEAKER) (test code = 652) CALCIUM (BEAKER) 8.3 mg/dL 8.4-10.2 L (test code = 697) AST (SGOT) (BEAKER) 21 U/L 5-34 (test code = 353) ALT (SGPT) (BEAKER) 12 U/L 6-55 (test code = 347) EGFR (BEAKER) (test 52 mL/min/1.73 ESTIMA BHAVANA GFR IS code = 1092) sq m NOT ACCURATE CREATININE CLEARANCE IN PREDICTING GLOMERULAR FILTRATION RATE . ESTIMATED GFR I S NOT APPLICABLE FOR DIALYSIS PATIEN TS. CREATINE KINASE (CK)2019-06-10 05:22:00 Test Item Value Reference Range Interpretation Comments CREATINE KINASE TOTAL (BEAKER) (test 176 U/L 29-200 code = 380) LACTIC ACID, [id number] 05:09:00 Test Item Value Reference Range Interpretation Comments LACTATE BLOOD VENOUS (2) (BEAKER) 0.9 mmol/L 0.5-2.2 (test code = 2872) CBC (HEMOGRAM ONLY)2019-06-10 04:59:00 Test Item Value Reference Range Interpretation Comments WHITE BLOOD CELL COUNT (BEAKER) 7.8 K/ L 3.5-10.5 (test code = 775) RED BLOOD CELL COUNT (BEAKER) 3.25 M/ L 3.93-5.22 L (test code = 761) HEMOGLOBIN (BEAKER) (test code = 8.8 GM/DL 11.2-15.7 L 410) HEMATOCRIT (BEAKER) (test code = 27.7 % 34.1-44.9 L 411) MEAN CORPUSCULAR VOLUME (BEAKER) 85.2 fL 79.4-94.8 (test code = 753) MEAN CORPUSCULAR HEMOGLOBIN 27.1 pg 25.6-32.2 (BEAKER) (test code = 751) MEAN CORPUSCULAR HEMOGLOBIN CONC 31.8 GM/DL 32.2-35.5 L (BEAKER) (test code = 752) RED CELL DISTRIBUTION WIDTH 18.6 % 11.7-14.4 H (BEAKER) (test code = 412) PLATELET COUNT (BEAKER) (test 220 K/CU MM 150-450 code = 756) MEAN PLATELET VOLUME (BEAKER) 10.1 fL 9.4-12.3 (test code = 754) NUCLEATED RED BLOOD CELLS 0 /100 WBC 0-0 (BEAKER) (test code = 413) POCT-GLUCOSE [id number] 00:51:00 Test Item Value Reference Range Interpretation Comments POC-GLUCOSE METER 88 mg/dL 70-110 TESTED AT [facility] 6720 (BEAKER) (test code = [place] [address] 6901) CHLORIDE, RANDOM [id number] 19:35:00 Test Item Value Reference Range Interpretation Comments CHLORIDE URINE (BEAKER) (test code = 80 meq/L 682) Reference Range: No NormalsCREATININE, RANDOM [id number] 19:35:00 Test Item Value Reference Range Interpretation Comments CREATININE URINE (BEAKER) (test 74.8 mg/dL code = 375) Reference Range: No NormalsSODIUM, RANDOM [id number] 19:35:00 Test Item Value Reference Range Interpretation Comments SODIUM URINE (BEAKER) (test code = 97 meq/L 243) Reference Range: No NormalsURINALYSIS W/ REFLEX URINE [id number] 18:59:00 Test Item Value Reference Range Interpretation Comments COLOR (BEAKER) (test code = 470) Yellow CLARITY (BEAKER) (test code = 469) Clear SPECIFIC GRAVITY UA (BEAKER) (test 1.015 1.001-1.035 code = 468) PH UA (BEAKER) (test code = 467) 6.0 5.0-8.0 PROTEIN UA (BEAKER) (test code = Negative Negative 464) GLUCOSE UA (BEAKER) (test code = Negative Negative 365) KETONES UA (BEAKER) (test code = Negative Negative 371) BILIRUBIN UA (BEAKER) (test code = Negative Negative 462) BLOOD UA (BEAKER) (test code = 461) Negative Negative NITRITE UA (BEAKER) (test code = Negative Negative 465) LEUKOCYTE ESTERASE UA (BEAKER) Small Negative A (test code = 466) UROBILINOGEN UA (BEAKER) (test code 0.2 mg/dL 0.2-1.0 = 463) RBC UA (BEAKER) (test code = 519) < /HPF WBC UA (BEAKER) (test code = 520) 1 /HPF BACTERIA (BEAKER) (test code = 517) Rare MUCUS (BEAKER) (test code = 1574) Rare SQUAMOUS EPITHELIAL (BEAKER) (test 1 /HPF code = 516) HYALINE CASTS (BEAKER) (test code = 2 /LPF 514) SOURCE(BEAKER) (test code = 2795) POCT-GLUCOSE [id number] 18:16:00 Test Item Value Reference Range Interpretation Comments POC-GLUCOSE METER 71 mg/dL 70-110 TESTED AT [facility] 6720 (BEAKER) (test code = AUDI ZHONG [place] [id number] 6938) T4, [id number] 18:06:00 Test Item Value Reference Range Interpretation Comments FREE T4 (BEAKER) (test code = 655) < ng/dL 0.70-1.48 L HEPATIC FUNCTION [id number] 17:52:00 Test Item Value Reference Range Interpretation Comments TOTAL PROTEIN (BEAKER) (test code = 5.7 gm/dL 6.0-8.3 L 770) ALBUMIN (BEAKER) (test code = 1145) 3.5 g/dL 3.5-5.0 BILIRUBIN TOTAL (BEAKER) (test code 0.4 mg/dL 0.2-1.2 = 377) BILIRUBIN DIRECT (BEAKER) (test 0.1 mg/dL 0.1-0.5 code = 706) ALKALINE PHOSPHATASE (BEAKER) (test 64 U/L 40-150 code = 346) AST (SGOT) (BEAKER) (test code = 25 U/L 5-34 353) ALT (SGPT) (BEAKER) (test code = 14 U/L 6-55 347) TSH/FREE T4 IF [id number] 17:49:00 Test Item Value Reference Range Interpretation Comments THYROID STIMULATING HORMONE 125.05 uIU/mL 0.35-4.94 H (BEAKER) (test code = 772) [id number] 16:49:00 Test Item Value Reference Range Interpretation Comments MAGNESIUM (BEAKER) (test code = 1.8 mg/dL 1.6-2.6 627) BASIC METABOLIC [id number] 16:49:00 Test Item Value Reference Range Interpretation Comments SODIUM (BEAKER) 140 meq/L 136-145 (test code = 381) POTASSIUM (BEAKER) 4.7 meq/L 3.5-5.1 (test code = 379) CHLORIDE (BEAKER) 113 meq/L 98-107 H (test code = 382) CO2 (BEAKER) (test 19 meq/L 22-29 L code = 355) BLOOD UREA NITROGEN 43 mg/dL 7-21 H (BEAKER) (test code = 354) CREATININE (BEAKER) 1.16 mg/dL 0.57-1.25 (test code = 358) GLUCOSE RANDOM 81 mg/dL 70-105 (BEAKER) (test code = 652) CALCIUM (BEAKER) 8.1 mg/dL 8.4-10.2 L (test code = 697) EGFR (BEAKER) (test 47 mL/min/1.73 ESTIMA BHAVANA GFR IS code = 1092) sq m NOT ACCURATE CREATININE CLEARANCE IN PREDICTING GLOMERULAR FILTRATION RATE . ESTIMATED GFR I S NOT APPLICABLE FOR DIALYSIS PATIEN TS. [id number] 16:41:00 Test Item Value Reference Range Interpretation Comments PROTIME (BEAKER) (test code = 16.5 seconds 11.9-14.2 H 759) INR (BEAKER) (test code = 370) 1.4 <=5.9 PARTIAL THROMBOPLASTIN TIME 31.5 seconds 22.5-36.0 (BEAKER) (test code = 760) Effective 02/13/2019: PT Reference Range ChangeNew: 11.9-14.2 Previous: 11.7- 14.7RECOMMENDED COUMADIN/WARFARIN INR THERAPY RANGESSTANDARD DOSE: 2.0-3.0 Includes: PROPHYLAXIS for venous thrombosis, systemic embolization; TREATMENT for venous thrombosis and/or pulmonary embolus.HIGH RISK: Target INR is2.5-3.5 for patients wiht mechanical heart valves.[id number] 16:41:00 Test Item Value Reference Range Interpretation Comments FIBRINOGEN LEVEL (BEAKER) (test 189 mg/dl 225-434 L code = 658) CBC (HEMOGRAM ONLY)2019-06-09 16:33:00 Test Item Value Reference Range Interpretation Comments WHITE BLOOD CELL COUNT (BEAKER) 8.3 K/ L 3.5-10.5 (test code = 775) RED BLOOD CELL COUNT (BEAKER) 3.31 M/ L 3.93-5.22 L (test code = 761) HEMOGLOBIN (BEAKER) (test code = 9.0 GM/DL 11.2-15.7 L 410) HEMATOCRIT (BEAKER) (test code = 28.8 % 34.1-44.9 L 411) MEAN CORPUSCULAR VOLUME (BEAKER) 87.0 fL 79.4-94.8 (test code = 753) MEAN CORPUSCULAR HEMOGLOBIN 27.2 pg 25.6-32.2 (BEAKER) (test code = 751) MEAN CORPUSCULAR HEMOGLOBIN CONC 31.3 GM/DL 32.2-35.5 L (BEAKER) (test code = 752) RED CELL DISTRIBUTION WIDTH 17.9 % 11.7-14.4 H (BEAKER) (test code = 412) PLATELET COUNT (BEAKER) (test 250 K/CU MM 150-450 code = 756) MEAN PLATELET VOLUME (BEAKER) 9.5 fL 9.4-12.3 (test code = 754) NUCLEATED RED BLOOD CELLS 0 /100 WBC 0-0 (BEAKER) (test code = 413) RAD, ABDOMEN/KUB, 1 VIEW [id number] 16:14:00Reason for exam:->abdominal distentionShould this be performed at the bedside?->YesFINAL REPORT Technique: Frontal image of the abdomen COMPARISON: None FINDINGS : Exam is limited as portions of the left lateral abdomen as well as pelvis are outside of the fieldof view. Evaluation for free intraperitoneal air is limited due to positioning and technique. Bowel gas pattern is nonspecific. Rounded calcifications project in the right abdomen which could be gallstones, renal stones, etc. No acute skeletal abnormality. Signed: Moshe Gutierrez MDReport Verified Date/Time: 06/09/2019 16:14:10 Reading Location: [facility] B1 C013T [facility] Reading Room Electronicallysigned by: MOSHE GUTIERREZ M.D. on 06/09/2019 04:14 PM
[2021-08-18] MEDS ORDERED: NA CHLORIDE 0.9% 1,000 ML ONE (03:02)
[2021-08-18 03:20] LABS: Urine Blood Trace-intact (Negative); Urine Glucose Negative (Negative); Urine Protein Negative (Negative); Urine Specific Gravity >=1.030 (1.005-1.030)
[2021-08-18 03:20] LABS: Absolute Lymphocytes (CBC) 0.9 K/uL (0.7-4.9); Basophils % 0.9 % (0-1.3); Hematocrit 38.7 % (36.0-45.0); Lymphocytes % 20.2 % (15.3-44.8); RBC Red Blood Cell Count 4.62 M/uL (3.86-4.86)
[2021-08-18 03:29] LABS: ALT/SGPT 79 U/L (12-78); AST/SGOT 72 U/L (15-37); Alkaline Phosphatase 76 U/L (45-117); BUN Blood Urea Nitrogen 24 mg/dL (7-18); Bicarbonate 25 mmol/L (21-32); Bilirubin Direct < 0.1 mg/dL (0-0.2); Bilirubin Total 0.2 mg/dL (0.2-1.0); Glucose Level 99 mg/dL (74-106); Lipase 216 U/L (73-393); Potassium 3.5 mmol/L (3.5-5.1); Protein, Total 6.5 g/dL (6.4-8.2); Sodium Level 142 mmol/L (136-145); Troponin (Emerg Dept Use Only) < 0.02 ng/mL (0.0-0.045)
[2021-08-18 03:56] LABS: Urine Urothelial Cells <5 /HPF (NONE SEEN)
[2021-08-18 03:57] LABS: Urine Amorphous Sediment 1+ /HPF (NONE SEEN); Urine Bacteria 20-50 /HPF (<20); Urine RBC <5 /HPF (NONE SEEN)
[2021-08-18 04:19] LABS: SARS-COV-2 RT PCR NEGATIVE (NEGATIVE)
--- NOTE | 2021-08-18 05:18 | ER ---
Nurse's Notes [facility] Name: Rhea Carballo Age: 65 yrs Sex: Female : 1955 Arrival Date: 08/18/2021 Time: 02:44 Bed 6 Private MD: Diagnosis: Nausea;UTI/ Urinary tract infection, site not specified Presentation: 08/18 02:50 Chief complaint: Patient states: Pt arrived EMS from home c/o nausea since 0800 df1 yesterday. Pt given 4mg Zofran IV by ems. Coronavirus screen: Vaccine status: Patient reports being unvaccinated. Client denies travel out of the [place] in the last 14 days. At this time, the client does not indicate any symptoms associated with coronavirus-19. Ebola Screen: Patient negative for fever greater than or equal to 101.5 degrees Fahrenheit, and additional compatible Ebola Virus Disease symptoms Patient denies exposure to infectious person. Patient denies travel to an Ebola-affected area in the 21 days before illness onset. Initial Sepsis Screen: Does the patient meet any 2 criteria? No. Patient's initial sepsis screen is negative. Does the patient have a suspected source of infection? No. Patient's initial sepsis screen is negative. Risk Assessment: Do you want to hurt yourself or someone else? Patient reports no desire to harm self or others. Onset of symptoms was August 17, 2021 at 08:00. 02:50 Method Of Arrival: EMS: [facility] df1 02:50 Acuity: МАРИНА 3 df1 Triage Assessment: 02:58 General: Appears in no apparent distress. Behavior is calm, cooperative. Pain: Denies df1 pain. Historical: - Allergies: 02:51 Iodine; df1 - Home Meds: 02:51 Lisinopril Oral [Active]; BuSpar Oral [Active]; Wellbutrin SR Oral [Active]; df1 levothyroxine oral [Active]; - PMHx: 02:51 chronic back pain; Depression; GI Bleed; Hypothyroidism; SEROTONIN SYNDROME; df1 - PSHx: 02:51 None; df1 - Immunization history:: Adult Immunizations not up to date, Client reports having NOT received the Covid vaccine. - Social history:: Smoking status: Patient denies any tobacco usage or history of. - Family history:: not pertinent. - Hospitalizations: : No recent hospitalization is reported. Screenin:55 Abuse screen: Denies threats or abuse. Nutritional screening: No deficits noted. df1 Tuberculosis screening: No symptoms or risk factors identified. Fall Risk None identified. Assessment: 03:11 General: Appears uncomfortable. Pain: Complains of pain in abdomen Pain currently is 5 tw5 out of 10 on a pain scale. Neuro: Level of Consciousness is awake, alert, obeys commands, Oriented to person, place, time, situation. GI: Abdomen is non-distended, Reports nausea. : Urine is clear. Musculoskeletal: contracture of bilateral hands. 03:57 Reassessment: Patient appears in no apparent distress at this time. No changes from tw5 previously documented assessment. Vital Signs: 02:50 BP 134 / 78; Pulse 52; Resp 18; Temp 97.6(O); Pulse Ox 95% on R/A; Weight 64.41 kg; df1 Height 5 ft. 7 in. (170.18 cm); Pain 6/10; 03:11 BP 145 / 82; Pulse 52; Resp 12; Pulse Ox 94% on R/A; Pain 5/10; tw5 03:57 BP 143 / 85; Pulse 48; Resp 14; Pulse Ox 95% on R/A; tw5 02:50 Body Mass Index 22.24 (64.41 kg, 170.18 cm) df1 ED Course: 02:44 Patient arrived in ED. mw2 02:44 Mino Morrison MD is Attending Physician. rn 02:49 Luzma Cardenas is Primary Nurse. df1 02:51 Triage completed. df1 02:55 Patient has correct armband on for positive identification. Placed in gown. Bed in low df1 position. Call light in reach. Side rails up X 1. 02:55 No provider procedures requiring assistance completed. Inserted saline lock: 20 gauge df1 in right wrist, using aseptic technique. 02:58 Arm band placed on right wrist. df1 03:10 Basic Metabolic Panel Sent. tw5 03:11 No apparent distress. Awaiting lab results. tw5 03:11 flakeboard line tender on. Pulse ox on. NIBP on. Door closed. Moved to private room. Warm tw5 blanket given. Verbal reassurance given. 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 Urine collected: straight cath tw5 specimen, clear, COVID swab sent to lab. Flu and/or RSV swab sent to lab. 03:14 Troponin (Emerg Dept Use Only) Sent. tw5 03:15 Basic Metabolic Panel Sent. tw5 03:15 CBC with Diff Sent. tw5 03:15 Hepatic Function Sent. tw5 03:15 Lipase Sent. tw5 05:46 IV discontinued, intact, bleeding controlled, No redness/swelling at site. Pressure df1 dressing applied. Administered Medications: 03:10 Drug: NS 0.9% 1000 ml Route: IV; Rate: 1000 ml; Site: right hand; tw5 05:46 Drug: Cipro (ciprofloxacin) 500 mg Route: PO; df1 Outcome: 05:17 Discharge ordered by MD. rn 05:46 Discharged to home ambulatory. df1 05:46 Condition: good 05:46 Discharge instructions given to patient, Instructed on discharge instructions, follow up and referral plans. medication usage, Demonstrated understanding of instructions, follow-up care, wound care, Prescriptions given X 2. 05:47 Patient left the ED. df1 Signatures: Mino Morrison MD MD rn Petey, Poncho mw2 Luzma Cardenas df1 Radha Villeda tw5 Corrections: (The following items were deleted from the chart) 02:55 02:50 Chief complaint: Patient states: Pt arrived EMS from home c/o nausea since 0800 df1 yesterday. df1 03:30 03:10 Influenza Screen (A \T\ B)+BA.LAB.BRZ drawn and sent. tw5 EDMS 03:30 03:10 SARS-COV-2 RT PCR+MOL.LAB.BRZ drawn and sent. tw5 EDMS
--- NOTE | 2021-08-18 05:18 | EDPHYS ---
Physician Documentation [facility] Name: Rhea Carballo Age: 65 yrs Sex: Female : 1955 Arrival Date: 08/18/2021 Time: 02:44 Bed 6 Private MD: ED Physician Mino Morrison HPI: 08/18 02:46 This 65 yrs old Female presents to ER via Unassigned with complaints of rn Nausea. 02:46 The patient presents to the emergency department with nausea. Onset: The rn symptoms/episode began/occurred yesterday. Possible causes: unknown. The symptoms are aggravated by nothing. The symptoms are alleviated by nothing. Associated signs and symptoms: Pertinent positives: nausea, Pertinent negatives: abdominal pain, anorexia, fever, GI bleeding. Severity of symptoms: At their worst the symptoms were mild in the emergency department the symptoms are unchanged. The patient has not experienced similar symptoms in the past. The patient has been recently seen by a physician:. Patient reports came in for nausea and generalized weakness and fatigue. Reports began yesterday. Started a new blood pressure medication that her PCP prescribed yesterday prior to onset of symptoms and thinks that might be the culprit. Patient also reports having some nasal congestion and mild cough. Patient feels like she needs to use the bathroom or might have diarrhea. . Historical: - Allergies: 02:51 Iodine; df1 - Home Meds: 02:51 Lisinopril Oral [Active]; BuSpar Oral [Active]; Wellbutrin SR Oral [Active]; df1 levothyroxine oral [Active]; - PMHx: 02:51 chronic back pain; Depression; GI Bleed; Hypothyroidism; SEROTONIN SYNDROME; df1 - PSHx: 02:51 None; df1 - Immunization history:: Adult Immunizations not up to date, Client reports having NOT received the Covid vaccine. - Social history:: Smoking status: Patient denies any tobacco usage or history of. - Family history:: not pertinent. - Hospitalizations: : No recent hospitalization is reported. ROS: 02:47 Constitutional: Negative for fever, chills, and weight loss, Eyes: Negative for injury, rn pain, redness, and discharge, ENT: Positive for nasal congestion Neck: Negative for injury, pain, and swelling, Cardiovascular: Negative for chest pain, palpitations, and edema, Respiratory: Negative for shortness of breath, wheezing, and pleuritic chest pain, Abdomen/GI: Negative for abdominal pain,vomiting, diarrhea, and constipation, Back: Negative for injury and pain, MS/Extremity: Negative for injury and deformity, Skin: Negative for injury, rash, and discoloration, Neuro: Negative for numbness, tingling, and seizure. Exam: 02:47 Constitutional: This is a well developed, well nourished patient who is awake, alert, rn and in no acute distress. Head/Face: Normocephalic, atraumatic. Eyes: Periorbital areas with no swelling, redness, or edema. ENT: Dry mucous membranes Cardiovascular: Bradycardic, regular. No pulse deficits. Respiratory: Speaking full sentences, unlabored. No increased work of breathing, no retractions or nasal flaring. Abdomen/GI: Soft, non-tender Skin: Warm, dry MS/ Extremity: Pulses equal, no cyanosis. Neuro: Awake and alert, GCS 15, oriented to person, place, time, and situation. Cranial nerves II-XII grossly intact. Motor strength 5/5 in all extremities. Sensory grossly intact. Vital Signs: 02:50 BP 134 / 78; Pulse 52; Resp 18; Temp 97.6(O); Pulse Ox 95% on R/A; Weight 64.41 kg; df1 Height 5 ft. 7 in. (170.18 cm); Pain 6/10; 03:11 BP 145 / 82; Pulse 52; Resp 12; Pulse Ox 94% on R/A; Pain 5/10; tw5 03:57 BP 143 / 85; Pulse 48; Resp 14; Pulse Ox 95% on R/A; tw5 02:50 Body Mass Index 22.24 (64.41 kg, 170.18 cm) df1 MDM: 02:45 Patient medically screened. rn 05:13 Differential diagnosis: Viral syndrome, Covid, flu, UTI. Data reviewed: vital signs, rn nurses notes, lab test result(s), EKG, and as a result, I will discharge patient. Counseling: I had a detailed discussion with the patient and/or guardian regarding: the historical points, exam findings, and any diagnostic results supporting the discharge/admit diagnosis, lab results, the need for outpatient follow up, to return to the emergency department if symptoms worsen or persist or if there are any questions or concerns that arise at home. Response to treatment: the patient's symptoms have markedly improved after treatment, and as a result, I will discharge patient. Special discussion: I discussed with the patient/guardian in detail that at this point there is no indication for admission to the hospital. It is understood, however, that if the symptoms persist or worsen the patient needs to return immediately for re-evaluation. ED course: Patient feels better, no vomiting. No acute findings in blood work. Troponin negative. EKG shows sinus bradycardia but no acute ischemia. Stable vital signs. Possible viral syndrome given cough and congestion that began 2 days ago and now with nausea. Urine also shows possible UTI. Will DC home with antibiotics and as needed Zofran and return precautions.. 08/18 02:45 Order name: Basic Metabolic Panel 08/18 02:45 Order name: CBC with Diff; Complete Time: 04:05 08/18 02:45 Order name: Hepatic Function; Complete Time: 04:05 08/18 02:45 Order name: Lipase; Complete Time: 04:05 08/18 02:45 Order name: Urine Microscopic Only; Complete Time: 04:05 08/18 02:46 Order name: Basic Metabolic Panel; Complete Time: 04:05 [facility] 08/18 03:06 Order name: Troponin (Emerg Dept Use Only); Complete Time: 04:05 [facility] 08/18 03:19 Order name: Urine Dipstick-Ancillary; Complete Time: 04:05 [facility] 08/18 03:30 Order name: COVID-19/FLU A+B; Complete Time: 04:27 [facility] 08/18 03:58 Order name: Urine Culture [facility] 08/18 02:45 Order name: IV Saline Lock; Complete Time: 02:48 rn 08/18 02:45 Order name: Labs collected and sent; Complete Time: 03:15 rn 08/18 02:45 Order name: Urine Dipstick-Ancillary (obtain specimen); Complete Time: 03:15 rn 08/18 02:45 Order name: EKG - Nurse/Tech; Complete Time: 03:06 rn 08/18 02:45 Order name: EKG; Complete Time: 02:46 rn 08/18 02:46 Order name: Cardiac monitoring; Complete Time: 02:48 rn Administered Medications: 03:10 Drug: NS 0.9% 1000 ml Route: IV; Rate: 1000 ml; Site: right hand; tw5 05:46 Drug: Cipro (ciprofloxacin) 500 mg Route: PO; df1 Disposition Summary: 08/18/21 05:17 Discharge Ordered Location: Home rn Problem: new rn Symptoms: have improved rn Condition: Stable rn Diagnosis - Nausea rn - UTI/ Urinary tract infection, site not specified rn Followup: rn - With: Private Physician - When: 2 - 3 days - Reason: Recheck today's complaints, Re-evaluation by your physician Discharge Instructions: - Discharge Summary Sheet rn - Nausea, Adult rn - Urinary Tract Infection, Adult rn Forms: - Medication Reconciliation Form rn - Thank You Letter rn - Antibiotic technology development intern - Prescription Opioid Use rn Prescriptions: - ondansetron 4 mg Oral tablet,disintegrating - take 1 tablet by ORAL route every 8-10 hours As needed; 15 tablet; Refills: 0, rn Product Selection Permitted - Cipro 500 mg Oral Tablet - take 1 tablet by ORAL route every 12 hours for 7 days; 14 tablet; Refills: 0, rn Product Selection Permitted Signatures: Dispatcher [employer] EDMS Mino Morrison MD MD rn Furlich, Dawn df1 Radha Villeda tw5 Corrections: (The following items were deleted from the chart) 03:05 02:48 TROPONIN (EMERG DEPT USE ONLY)+C.LAB.BRZ ordered. EDMS EDMS 03:30 02:46 SARS-COV-2 RT PCR+MOL.LAB.BRZ ordered. EDMS EDMS 03:30 02:46 Influenza Screen (A \T\ B)+BA.LAB.BRZ ordered. EDMS EDMS
[2021-08-18] MEDS ORDERED: CIPROFLOXACIN HCL 500 MG TAB ONE (05:23)
[2021-08-18 05:53] VITALS: TEMP 97.6
[2021-08-18 05:55] VITALS: BP 143/85; O2SAT 95
--- NOTE | 2021-08-18 16:22 | EKG ---
Test Date: 2021-08-18 Test Time: 03:05:32 Bead Trimmer: ABEL MEASUREMENT RESULTS: Intervals: Rate: 50 FL: 148 QRSD: 84 QT: 510 QTc: 464 Dana: P: 66 FL: 148 QRS: 50 T: 55 INTERPRETIVE STATEMENTS: Sinus bradycardia Nonspecific T wave abnormality Abnormal ECG Compared to ECG 06/29/2020 05:55:33 T-wave abnormality now present Sinus rhythm no longer present ST (T wave) deviation no longer present Electronically Signed On 08-18-21 16:21:07 TAB CUTTING MACHINE OPERATOR by Len Tobar
== END 2021-08-18 05:47 | disposition home or self-care (01) ==
LOC: ER 02:41
DX: N39.0 Urinary tract infection, site not specified (principal); R11.0 Nausea; E03.9 Hypothyroidism, unspecified; M54.9 Dorsalgia, unspecified; F32.A Depression, unspecified
CPT/HCPCS: 0240U; 36415; 80048; 80076; 81003; 81015; 83690; 84484; 85025; 87086; 87088; 93005; 99284; J7030

== ENCOUNTER 2021-09-02 17:39 | Emergency (ER) | payer SELFPAY ==
--- OUTSIDE RECORDS SUMMARY | 2021-09-02 17:42 | XMS REPORT | Continuity of Care Document ---
:1955 Author Organization [facility] t Address [address] [place] [address] Care Team Providers Name Role Phone SHER, E Primary Care Physician Unavailable PAUL SANTOS Attending Clinician Unavailable Kishore Mcknight MD Attending Clinician KISHORE MCKNIGHT Attending Clinician Unavailable CARLOS Attending Clinician Unavailable BONIFACIO Attending Clinician Unavailable PARADISE GRIFFITHS Attending Clinician Unavailable PAUL SANTOS Admitting Clinician Unavailable GRACE KIM Admitting Clinician Unavailable CARLOS Admitting Clinician Unavailable CIVUNOLIVENTJosue Admitting Clinician Unavailable PARADISE GRIFFITHS Admitting Clinician Unavailable Problems Condition Condition Condition Status Onset Resolution Last Treating Co mments Source Name Details Category Date Date Treatment Clinician Date No known No known Disease Unive rs active active ity of problems problems [facility] Allergies, Adverse Reactions, Alerts Allergy Allergy Status Severity Reaction(s) Onset Inactive Treating Comm ents Source Name Type Date Date Clinician NO KNOWN Drug Active Univers ALLERGIE Class ity of S [facility] NO KNOWN Allergy Active [facility] ALLERGIE S Social History Social Habit Start Date Stop Date Quantity Comments Source History SDOH University o f Alcohol Std [place] [facility] Drinks Branch History SDOH University o f Alcohol Binge [place] [facility] History SDOH University o f Alcohol Comment [place] [facility] Exposure to Not sure University of SARS-CoV-2 [facility] (event) Branch Alcohol intake 2021-08-16 2021-08-16 Lifetime University of 00:00:00 00:00:00 non-drinker [place] [facility] (finding) Branch History SDOH 2021-05-07 2021-05-07 1 University o f Alcohol Frequency 00:00:00 00:00:00 [facility] edical Branch Tobacco use and 2021-04-05 2021-04-05 Never used Universit y of exposure 00:00:00 00:00:00 [facility] Sex Ass[birth year] Universit y of 00:00:00 00:00:00 [facility] Smoking Status Start Date Stop Date Source Never smoker [facility] Medications Ordered Filled Start Stop Current Ordering Indication Dosage Frequency Signature Comments Components Source Medication Medication Date Date Medication? Clinician (SIG) Name Name levothyroxi 2020-09 Yes [id number] 150ug Take 1 Univers ne 150 mcg 1-29 tablet by ity of tablet 00:00: mouth [place] 00 every Medical morning. Branch busPIRone 5 2020-09 Yes [id number] 5mg Take 1 Univers mg tablet 1-29 tablet by ity o f 00:00: mouth 2 [place] (two) Medical times Branch daily. buPROPion 2020-09 Yes [id number] 150mg Take 1 Univers XL 1-29 tablet by ity of (WELLBUTRIN 00:00: mouth [place] XL) 150 mg 00 daily. Medical 24 hr Branch tablet lisinopriL 2020-09 Yes [id number] 20mg Take 1 U nivers 20 mg 1-29 tablet by ity of tablet 00:00: mouth [place] 00 daily. Medical Branch levothyroxi 2020-09 Yes [id number] 150ug Take 1 Univers ne 150 mcg 1-29 tablet by ity of tablet 00:00: mouth [place] 00 every Medical morning. Branch busPIRone 5 2020-09 Yes [id number] 5mg Take 1 Univers mg tablet 1-29 tablet by ity o f 00:00: mouth 2 [place] (two) Medical times Branch daily. buPROPion 2020-09 Yes [id number] 150mg Take 1 Univers XL 1-29 tablet by ity of (WELLBUTRIN 00:00: mouth [place] XL) 150 mg 00 daily. Medical 24 hr Branch tablet lisinopriL 2020-09 Yes [id number] 20mg Take 1 U nivers 20 mg 1-29 tablet by ity of tablet 00:00: mouth [place] 00 daily. Medical Branch buPROPion 2020- No [id number] 150mg Take 1 Univers XL 05-07 tablet by ity of (WELLBUTRIN [place] XL[place] 150 mg 00 :00 daily. Medical 24 hr Branch tablet busPIRone 5 2020- No [id number] 5mg Take 1 Univers mg tablet 05-07 tablet by ity of 00:00: 00:00 mouth 2 [place] 00 :00 (two) Medical times Branch daily. levothyroxi 2020- No [id number] 150ug Take 1 Univers ne 150 mcg 05-07 tablet by ity of tablet 00:00: 00:00 mouth [place] 00 :00 every Medical morning. Branch buPROPion 2020- No [id number] 150mg Take 1 Univers XL 05-07 tablet by ity of (WELLBUTRIN 00:[place] XL[place] 150 mg 00 :00 daily. Medical 24 hr Branch tablet busPIRone 5 2020- No [id number] 5mg Take 1 Univers mg tablet 05-07 tablet by ity of 00:00: 00:00 mouth 2 [place] 00 :00 (two) Medical times Branch daily. levothyroxi 2020- No [id number] 150ug Take 1 Univers ne 150 mcg 05-07 tablet by ity of tablet 00:00: 00:00 mouth [place] 00 :00 every Medical morning. Branch Vital Signs Vital Name Observation Time Observation Value Comments Source Systolic blood 2021-08-16 22:21:00 194 mm[Hg] Asyaer mary [facility] pressure [facility] Diastolic blood 2021-08-16 22:21:00 91 mm[Hg[facility] pressure [facility] Heart rate 2021-08-16 22:20:00 66 /min [facility] Body height 2021-08-16 22:20:00 167.6 cm [facility] Body weight 2021-08-16 22:20:00 64.411 kg [facility] BMI 2021-08-16 22:20:00 22.92 kg/m2 [facility] Procedures This patient has no known procedures. Encounters Start End Encounter Admission Attending Care Care Encounter Source Date/Time Date/Time Type Type Clinicians Facility Department ID 2021-06-23 Inpatient ER RISHABH SANTOS Gastro [id number] [facility] 01:38:07 KATIANA 2021-08-16 2021-08-[id number] Univers 16:13:41 16:28:41 Visit [facility] [id number] it y of Kishore QUINTERO [id number] Mark as NATE?BLEA [id number] [address] MEDICAL OFFICE BUILDING 2021-08-16 2021-08-16 Outpatient R JUAN LUIS [facility] [id number] Univers 16:15:00 16:15:00 BRANDON [facility] 2019-11-13 2019-11-13 Emergency X [facility] ERT [id number] Univers 12:50:48 15:36:00 [place] [facility] Results Test Description Test Time Test Comments Results Result Sourc e Comments TISSUE EXAM 2020-04-21 Surgical Pathology Report 16:49:00 Case: [id number] Authorizing Provider: Felix Banks MD Collected: 04/18/2020 02:34 PM Ordering Location: [address] Received: 04/20/2020 08:22 AM Service Pathologist: [...] see comment Signing Pathologist Direct Phone Line: [phone] y signed by Keyona Collado MD on 04/21/2020 at 4:49 PMSpecimen C. The features are nonspecific and may represent reflux associated changes in the appropriate clinical and endoscopic setting.00560 x3, [id number] deficiency anemia.A. DuodenumB. Gastric biopsyC. Esophagus biopsy [...] evaluated Immunohistochemistry technical testing was performed at [facility], Pathology Laboratory where it was developed and [...] NOT 1092) ACCURATE CRE ATININE CLEARANCE IN [place] EDICTING GLOMERULAR FILT RATION RATE. ESTIMATED GFR IS NOT APPLICABLE FOR DIALYSIS PATIENTS. Semi Automatic Sewing Machine Operator ID - PIAYA LCBC (HEMOGRAM ONLY)2020-04-19 05:45:00 [...] WBC 0-0 (BEAKER) (test code = 413) [id number] 05:41:00 Test Item Value Reference Range Interpretation Comments CORTISOL, TOTAL (BEAKER) (test code 7.1 ug/dL 3.7-19.4 = 2755) Semi Automatic Sewing Machine Operator ID - PIAYA LBASIC METABOLIC [id number] 04:01:00 Test Item Value Reference Range Interpretation [...] S NOT APPLICABLE FOR DIALYSIS PATIEN TS. Semi Automatic Sewing Machine Operator ID - EDASIHEMOGLOBIN AND [id number] 03:00:00 Test Item Value Reference Range Interpretation Comments HEMOGLOBIN (BEAKER) (test code = 7.7 GM/DL 11.2-15.7 L 410) HEMATOCRIT (BEAKER) (test code = 25.7 % 34.1-44.9 L 411) Semi Automatic Sewing Machine Operator ID - [id number] (HEMOGRAM ONLY)2020-04-18 03:00:00 Test [...] 0-0 (BEAKER) (test code = 413) SARS-COV2/RT-PCR ([facility])2020-04-17 14:53:00 Test Item Value Reference Range Interpretation Comments SARS-COV2/RT-PCR (test Negative Not Detected, Negative, code = 2216248) See external report for linked test SARS-COV-2 PERFORMING LAB [facility] (test code = 3634907) Negative result for this test determines that [...] 564(g) of the Act.Fact Sheet for Healthcare Providers:https://www.[employer]/sites/default/files/product/documents/Fact_Shee h_VS_Wckbqyqcn_Fzkc_UXNN-VfJ-7.pdfFact Sheet for Healthcare Patients:https://www.[employer]/sites/default/files/product/ documents/Ylvk_Bybxs_Wcylfztt_Vpgb_CMXM-AgT-9.pdfPerforming Laboratory:[address] [place], [place] [address]LL, BRAIN, WITHOUT [id number] 11:46:00FINAL REPORT CT, BRAIN, WITHOUT CONTRAST INDICATION: [...] for further characterization. Signed: JR Gan Robert [facility] Verified Date/Time: 04/17/2020 11:46:51 ReadingLocation: [facility] B1 C013V Neuro Reading Room [id number] 10:30:00 Test Item Value Reference Range Interpretation [...] failure, acidosis, acute neurological disease, and persistent tachyarrhythmia.Semi Automatic Sewing Machine Operator ID - [id number] 10:24:00 Test Item Value Reference Range Interpretation Comments LIPASE (BEAKER) (test code = 749) 30 U/L 8-78 Semi Automatic Sewing Machine Operator ID - NTPCOMPREHENSIVE METABOLIC [id number] 10:17:00 Test Item Value Reference Range Interpretation [...] S NOT APPLICABLE FOR DIALYSIS PATIEN TS. Semi Automatic Sewing Machine Operator ID - [id number] 09:59:00 Test Item Value Reference Range Interpretation Comments FERRITIN (BEAKER) (test code = 361) < ng/mL 5.00-275.00 L Semi Automatic Sewing Machine Operator ID - NTPTSH/FREE T4 IF [id number] 09:50:00 Test Item Value Reference Range Interpretation Comments THYROID STIMULATING HORMONE 4.140 uIU/mL 0.350-4.940 (BEAKER) (test code = 772) Semi Automatic Sewing Machine Operator ID - NTPVITAMIN B12 AND [id number] 09:50:00 Test Item Value Reference Range Interpretation Comments VITAMIN B12 (BEAKER) (test code = 332 pg/mL 213-816 774) FOLATE (BEAKER) (test code = 362) 6.20 ng/mL >=7.00 L Semi Automatic Sewing Machine Operator ID - NTPCBC W/PLT COUNT & AUTO [id number] 09:28:00 Test Item Value Reference Range Interpretation [...] % 20-55 L (test code = 2590) Semi Automatic Sewing Machine Operator ID - NTPPROTHROMBIN TIME/[id number] 09:10:00 Test Item Value Reference Range Interpretation [...] mechanical heart valves.CBC W/PLT COUNT & AUTO [id number] 07:04:00 Test Item Value Reference Range Interpretation [...] (BEAKER) (test code = 2801) BASIC METABOLIC [id number] 06:54:00 Test Item Value Reference Range Interpretation [...] APPLICABLE FOR DIALYSIS PATIEN TS. HEMOGLOBIN AND [id number] 23:13:00 Test Item Value Reference Range Interpretation Comments HEMOGLOBIN (BEAKER) (test code = 7.8 GM/DL 11.2-15.7 L 410) HEMATOCRIT (BEAKER) (test code = 25.1 % 34.1-44.9 L 411) HEMOGLOBIN AND [id number] 18:29:00 Test Item Value Reference Range Interpretation Comments HEMOGLOBIN (BEAKER) (test code = 7.6 GM/DL 11.2-15.7 L 410) HEMATOCRIT (BEAKER) (test code = 24.4 % 34.1-44.9 L 411) HEMOGLOBIN AND [id number] 09:57:00 Test Item Value Reference Range Interpretation Comments HEMOGLOBIN (BEAKER) (test code = 7.2 GM/DL 11.2-15.7 L 410) HEMATOCRIT (BEAKER) (test code = 23.2 % 34.1-44.9 L 411) [id number] 05:50:00 Test Item Value Reference Range Interpretation Comments PHOSPHORUS (BEAKER) (test code = 2.9 mg/dL 2.3-4.7 604) [id number] 05:50:00 Test Item Value Reference Range Interpretation Comments MAGNESIUM (BEAKER) (test code = 2.0 mg/dL 1.6-2.6 627) BASIC METABOLIC [id number] 05:50:00 Test Item Value Reference Range Interpretation [...] APPLICABLE FOR DIALYSIS PATIEN TS. HEPATIC FUNCTION [id number] 05:50:00 Test Item Value Reference Range Interpretation [...] 6-55 347) CBC W/PLT COUNT & AUTO [id number] 05:40:00 Test Item Value Reference Range Interpretation [...] PERCENT (BEAKER) (test code = 2801) PROTHROMBIN [id number] 05:29:00 Test Item Value Reference Range Interpretation [...] wiht mechanical heart valves.RAD, ABDOMEN/KUB, 1 VIEW [id number] 02:43:00Reason for exam:->bloatingShould this be performed at [...] quadrant. Phleboliths overlie the pelvis. Signed: Guille Barragan Verified Date/Time: 06/16/2019 02:43:11 RAPID INFLUENZA A&B [id number] 01:49:00 Test Item Value Reference Range Interpretation Comments RAPID INFLUENZA A AG (BEAKER) Negative Negative, Inconclusive (test code = 1622) RAPID INFLUENZA B AG (BEAKER) Negative Negative, Inconclusive (test code = 1623) RAD, CHEST, 1 VIEW, NON [id number] 01:08:00Reason for exam:->coughShould this be performed at the bedside?->YesFINAL REPORT Chest, 1 view. History: Cough Comparison: None available. Findings: The cardiomediastinal silhouette and pulmonary vasculature are within normal limits for a portable exam. The lungs are clear without evidence of consolidation or effusion. The soft tissues and osseous structures are intact. IMPRESSION: No acute cardiopulmonary abnormality. Signed: Guille Barragan Verified Date/Time: 06/16/2019 01:08:45 BLOOD [id number] 08:00:00 Test Item Value Reference Range Interpretation Comments CULTURE (BEAKER) (test No growth in 5 days code = 1095) BLOOD [id number] 20:01:00 Test Item Value Reference Range Interpretation Comments CULTURE (BEAKER) (test No growth in 5 days code = 1095) TISSUE [id number] 12:58:00Surgical Pathology Report Case: [id number] Authorizing Provider: Len Waggoner, Collected: 06/10/2019 1111 Ordering Location: [place] [address] ICU Received: 06/10/2019 1601 Pathologist: Fernando Plascencia [...] DYSPLASIA/ MALIGNANCY Signing Pathologist Direct Phone Line: [phone] signed by Fernando Plascencia MD on 06/12/2019 at 12:58 PMB. Detached/ loosely adherent refractile foreign material is seen in the biopsy, likely representing pill fragments. Clinical and endoscopic correlation is recommended.[id number] bleedingA. Specimen is received in formalin labeled [...] evaluated Immunohistochemistry technical testing was performed at [facility], Pathology Laboratory where it was developed and [...] certified under the Clinical Laboratory Improvement Amendments ti8204 (CLIA-88) as qualified to perform high complexity clinical laboratory testing.POCT- GLUCOSE [id number] 11:45:00 Test Item Value Reference Range Interpretation Comments POC-GLUCOSE METER 85 mg/dL 70-110 TESTED AT [place] [address] [facility] (test code = AUDI [address]ock [facility] [address] 1538) T4, [id number] 08:58:00 Test Item Value Reference Range Interpretation Comments FREE T4 (BANNER) (test code = 655) 0.58 ng/dL 0.70-1.48 L POCT-GLUCOSE [id number] 08:02:00 Test Item Value Reference Range Interpretation Comments POC-GLUCOSE METER 91 mg/dL 70-110 TESTED AT [place] [address] ([employer]) (test code = AUDI Pollock [facility] [address] 1538) TSH/FREE T4 IF [id number] 06:57:00 Test Item Value Reference Range Interpretation [...] WBC 0-0 (BEAKER) (test code = 413) [id number] 06:42:00 Test Item Value Reference Range Interpretation Comments PHOSPHORUS (BEAKER) (test code = 2.7 mg/dL 2.3-4.7 604) [id number] 06:42:00 Test Item Value Reference Range Interpretation Comments MAGNESIUM (BEAKER) (test code = 2.0 mg/dL 1.6-2.6 627) COMPREHENSIVE METABOLIC [id number] 06:42:00 Test Item Value Reference Range Interpretation [...] NOT APPLICABLE FOR DIALYSIS PATIEN TS. POCT-GLUCOSE [id number] 23:02:00 Test Item Value Reference Range Interpretation Comments POC-GLUCOSE METER 113 mg/dL 70-110 H TESTED AT [facility] 6720 (BEAKER) (test code = AUDI Pollock [facility] 1538) [address] T3, [id number] 18:30:00 Test Item Value Reference Range Interpretation Comments T3 FREE (BEAKER) < pg/mL 1.71-3.71 L Testing per formed at [facility] (test code = 908) DI[facility]NO[facility]IC S [address] [address] [id number] 18:30:00 Test Item Value Reference Range Interpretation Comments T3 TOTAL (BEAKER) 27 ng/dL 48-159 L Testing pe rformed at (test code = 656) [facility] [place] [id number] [facility], [place] [address] POCT-GLUCOSE [id number] 18:14:00 Test Item Value Reference Range Interpretation Comments POC-GLUCOSE METER 106 mg/dL 70-110 TESTED AT [facility] 6720 (BANNER) (test code = AUDI Pollock [facility] 1538) [address] HEMOGLOBIN AND [id number] 18:09:00 Test Item Value Reference Range Interpretation Comments HEMOGLOBIN (BEAKER) (test code = 8.4 GM/DL 11.2-15.7 L 410) HEMATOCRIT (BEAKER) (test code = 26.4 % 34.1-44.9 L 411) POCT-GLUCOSE [id number] 12:28:00 Test Item Value Reference Range Interpretation Comments POC-GLUCOSE METER 132 mg/dL 70-110 H TESTED AT [place] [address] ([facility]) (test code = AUDI Pollock [facility] 1538) [address] CORTISOL,60 [id number] 10:34:00 Test Item Value Reference Range Interpretation Comments CORTISOL BASELINE NETWORKED 8.4 mcg/dL (BEAKER) (test code = 2307) CORTISOL 30 MINUTE NETWORKED 16.1 mcg/dL (BEAKER) (test code = 2308) CORTISOL, 60 MINUTE (BEAKER) 18.2 ug/dL (test code = 1805) ACTH [...] serum cortisollevel 60 minutes after cosyntropin administration. CORTISOL,[id number] 09:20:00 Test Item Value Reference Range Interpretation [...] a study by Stu et al (VIANEY 2000,283(8):6363-45), the ACTH Stimulation Test provides important prognostic [...] = 2.0 mg/dL 1.6-2.6 627) COMPREHENSIVE METABOLIC [id number] 07:16:00 Test Item Value Reference Range Interpretation [...] S NOT APPLICABLE FOR DIALYSIS PATIEN TS. [id number] 07:01:00 Test Item Value Reference Range Interpretation [...] (test code = 2590) VITAMIN B12 AND [id number] 06:14:00 Test Item Value Reference Range Interpretation Comments VITAMIN B12 (BEAKER) (test code = 285 pg/mL 213-816 774) FOLATE (BEAKER) (test code = 362) 6.3 ng/mL >=7.0 L [id number] 06:05:00 Test Item Value Reference Range Interpretation Comments CORTISOL, TOTAL (BEAKER) (test code 3.2 ug/dL 3.7-19.4 L = 2755) HIV-1 ANTIGEN WITH HIV-1/2 [id number] 06:04:00 Test Item Value Reference Range Interpretation Comments HIV-1 ANTIGEN WITH HIV 1\\T\\2 Nonreactive Nonreactive ANTIBODY (2) (BEAKER) (test code = 2586) [id number] 06:03:00 Test Item Value Reference Range Interpretation [...] 753) MEAN CORPUSCULAR HEMOGLOBIN 27.5 pg 25.6-32.2 (AKER) (test code = 751) MEAN CORPUSCULAR HEMOGLOBIN CONC 31.3 GM/DL 32.2-35.5 L (AKER) (test code = 752) RED CELL DISTRIBUTION WIDTH 19.6 % 11.7-14.4 H (AKER) (test code = 412) PLATELET COUNT (BANNER) (test 260 K/CU MM 150-450 code = 756) MEAN PLATELET VOLUME (AKER) 9.7 fL 9.4-12.3 (test code = 754) NUCLEATED RED BLOOD CELLS 0 /100 WBC 0-0 (AKER) (test code = 413) RETICULOCYTE [id number] 05:08:00 Test Item Value Reference Range Interpretation Comments RETICULOCYTE COUNT PCT (BANNER) (test 2.9 % 0.5-1.7 H code = 575) POCT-GLUCOSE [id number] 22:01:00 Test Item Value Reference Range Interpretation Comments POC-GLUCOSE METER 132 mg/dL 70-110 H TESTED AT [facility] 6720 (BANNER) (test code = AUDI ZHONG [place] 1538) [address] HEMOGLOBIN AND [id number] 21:02:00 Test Item Value Reference Range Interpretation Comments HEMOGLOBIN (BEAKER) (test code = 8.1 GM/DL 11.2-15.7 L 410) HEMATOCRIT (BEAKER) (test code = 25.5 % 34.1-44.9 L 411) T4, [id number] 11:38:00 Test Item Value Reference Range Interpretation Comments FREE T4 (BEAKER) (test code = 655) 0.46 ng/dL 0.70-1.48 L TSH/FREE T4 IF [id number] 11:00:00 Test Item Value Reference Range Interpretation Comments THYROID STIMULATING HORMONE 34.88 uIU/mL 0.35-4.94 H (BEAKER) (test code = 772) HEMOGLOBIN AND [id number] 10:21:00 Test Item Value Reference Range Interpretation Comments HEMOGLOBIN (BEAKER) (test code = 8.9 GM/DL 11.2-15.7 L 410) HEMATOCRIT (BEAKER) (test code = 27.3 % 34.1-44.9 L 411) [id number] 05:22:00 Test Item Value Reference Range Interpretation Comments PHOSPHORUS (BEAKER) (test code = 2.9 mg/dL 2.3-4.7 604) [id number] 05:22:00 Test Item Value Reference Range Interpretation Comments MAGNESIUM (BEAKER) (test code = 2.0 mg/dL 1.6-2.6 627) COMPREHENSIVE METABOLIC [id number] 05:22:00 Test Item Value Reference Range Interpretation [...] U/L 29-200 code = 380) LACTIC ACID, [id number] 05:09:00 Test Item Value Reference Range Interpretation [...] 0-0 (BEAKER) (test code = 413) POCT-GLUCOSE [id number] 00:51:00 Test Item Value Reference Range Interpretation Comments POC-GLUCOSE METER 88 mg/dL 70-110 TESTED AT [facility] 6720 (BEAKER) (test code = [place] [address] 1538) CHLORIDE, RANDOM [id number] 19:35:00 Test Item Value Reference Range Interpretation Comments CHLORIDE URINE (BEAKER) (test code = 80 meq/L 682) Reference Range: No NormalsCREATININE, RANDOM [id number] 19:35:00 Test Item Value Reference Range Interpretation Comments CREATININE URINE (BEAKER) (test 74.8 mg/dL code = 375) Reference Range: No NormalsSODIUM, RANDOM [id number] 19:35:00 Test Item Value Reference Range Interpretation Comments SODIUM URINE (BEAKER) (test code = 97 meq/L 243) Reference Range: No NormalsURINALYSIS W/ REFLEX URINE [id number] 18:59:00 Test Item Value Reference Range Interpretation [...] 514) SOURCE(BEAKER) (test code = 2795) POCT-GLUCOSE [id number] 18:16:00 Test Item Value Reference Range Interpretation Comments POC-GLUCOSE METER 71 mg/dL 70-110 TESTED AT [facility] 6720 (BEAKER) (test code = AUDI ZHONG [place] [id number] 6268) T4, [id number] 18:06:00 Test Item Value Reference Range Interpretation Comments FREE T4 (BEAKER) (test code = 655) < ng/dL 0.70-1.48 L HEPATIC FUNCTION [id number] 17:52:00 Test Item Value Reference Range Interpretation [...] 14 U/L 6-55 347) TSH/FREE T4 IF [id number] 17:49:00 Test Item Value Reference Range Interpretation Comments THYROID STIMULATING HORMONE 125.05 uIU/mL 0.35-4.94 H (BEAKER) (test code = 772) [id number] 16:49:00 Test Item Value Reference Range Interpretation Comments MAGNESIUM (BEAKER) (test code = 1.8 mg/dL 1.6-2.6 627) BASIC METABOLIC [id number] 16:49:00 Test Item Value Reference Range Interpretation [...] S NOT APPLICABLE FOR DIALYSIS PATIEN TS. [id number] 16:41:00 Test Item Value Reference Range Interpretation [...] INR is2.5-3.5 for patients wiht mechanical heart valves.[id number] 16:41:00 Test Item Value Reference Range Interpretation [...] code = 413) RAD, ABDOMEN/KUB, 1 VIEW [id number] 16:14:00Reason for exam:->abdominal distentionShould this be performed [...] MDReport Verified Date/Time: 06/09/2019 16:14:10 Reading Location: [facility] B1 C013T Transitional Reading Room Electronicallysigned by: MOSHE GUTIERREZ M.D. on 06/09/2019 04:14 PM
[2021-09-02 19:24] LABS: Urine Blood 1+ (Negative); Urine Glucose Negative (Negative); Urine Protein Negative (Negative)
--- NOTE | 2021-09-02 19:42 | EDPHYS ---
Physician Documentation [facility] Name: Rhea Carballo Age: 66 yrs Sex: Female : 1955 Arrival Date: 09/02/2021 Time: 17:41 Bed 13 Private MD: ED Physician Rosa Alatorre HPI: 09/02 19:38 This 66 yrs old Female presents to ER via Ambulatory with complaints of Abdominal Pain, sp3 Urinary Problem, Headache, High Blood Pressure. 19:38 66-year-old female with a history of past serotonin syndrome, depression, history of GI sp3 bleed, who was seen by Dr. Morrison 2 weeks ago for urinary tract infection and was prescribed antibiotics which she apparently never filled. She returns for headache type symptoms which are now resolved which are likely from her ondansetron that she was taking. She is no longer having any urinary symptoms, frequency, burning, dysuria, abdominal pain. She came in mainly concerned that she still needs an antibiotic. She states "anytime a medicine makes me feel weird I get scared that I may have another episode like my serotonin syndrome and I stop taking it." She currently denies fever, headache, neck pain, chest pain, shortness of breath, abdominal pain, syncope, rash, known sick contacts, or any other findings at this time.. Historical: - Allergies: 18:34 Iodine; vg1 - Home Meds: 18:34 BuSpar Oral [Active]; levothyroxine oral [Active]; lisinopril Oral [Active]; Wellbutrin vg1 SR Oral [Active]; - PMHx: 18:34 chronic back pain; Depression; GI Bleed; Hypothyroidism; SEROTONIN SYNDROME; vg1 - Immunization history:: Client reports having NOT received the Covid vaccine. - Social history:: Smoking status: Patient denies any tobacco usage or history of. ROS: 19:40 Constitutional: Negative for fever, chills, and weight loss, Eyes: Negative for injury, sp3 pain, redness, and discharge, ENT: Negative for injury, pain, and discharge, Neck: Negative for injury, pain, and swelling, Cardiovascular: Negative for chest pain, palpitations, and edema, Respiratory: Negative for shortness of breath, cough, wheezing, and pleuritic chest pain, Back: Negative for injury and pain, MS/Extremity: Negative for injury and deformity, Skin: Negative for injury, rash, and discoloration, Neuro: Negative for headache, weakness, numbness, tingling, and seizure. 19:40 All other systems are negative. Exam: 19:40 Constitutional: This is a well developed, well nourished patient who is awake, alert, sp3 and in no acute distress. Head/Face: Normocephalic, atraumatic. ENT: Nares patent. No nasal discharge, no septal abnormalities noted. External auditory canals are clear. Oropharynx with no redness, swelling, or masses, exudates, or evidence of obstruction, uvula midline. Mucous membranes moist. Neck: Trachea midline, no thyromegaly or masses palpated, and no cervical lymphadenopathy. Supple, full range of motion without nuchal rigidity, or vertebral point tenderness. No Meningismus. Chest/axilla: Normal chest wall appearance and motion. Nontender with no deformity. No lesions are appreciated. Cardiovascular: Regular rate and rhythm with a normal S1 and S2. No gallops, murmurs, or rubs. Normal PMI, no JVD. No pulse deficits. Respiratory: Lungs have equal breath sounds bilaterally, clear to auscultation and percussion. No rales, rhonchi or wheezes noted. No increased work of breathing, no retractions or nasal flaring. Abdomen/GI: Soft, non-tender, with normal bowel sounds. No distension or tympany. No guarding or rebound. No evidence of tenderness throughout. Skin: Warm, dry with normal turgor. Normal color with no rashes, no lesions, and no evidence of cellulitis. MS/ Extremity: Pulses equal, no cyanosis. Neurovascular intact. Full, normal range of motion. Neuro: Awake and alert, GCS 15, oriented to person, place, time, and situation. Cranial nerves II-XII grossly intact. Motor strength 5/5 in all extremities. Sensory grossly intact. Cerebellar exam normal. Normal gait. Psych: Awake, alert, with orientation to person, place and time. Behavior, mood, and affect are within normal limits. Vital Signs: 18:31 BP 166 / 82; Pulse 82; Resp 16; Temp 99.1; Pulse Ox 99% ; Weight 63.5 kg; Height 5 ft. vg1 6 in. (167.64 cm); Pain 7/10; 18:57 BP 165 / 87; Pulse 79; Pulse Ox 100% on R/A; ap3 18:31 Body Mass Index 22.60 (63.50 kg, 167.64 cm) vg1 MDM: 19:41 Data reviewed: vital signs, nurses notes. ED course: Urine dip shows 1+ leukocyte sp3 esterase but no other abnormalities. Clinically patient is stable. Out of caution given her past visit and her concerns, we will put her on Bactrim for 3 days double strength twice daily. At this time patient is not septic, in shock, have pyelonephritis, ACS, AAA, peritonitis, bowel pathology, or any other critical findings at this time. Will discharge to PCP follow-up.. 19:42 Patient medically screened. sp3 09/02 19:23 Order name: Urine Dipstick-Ancillary; Complete Time: 19:30 EDMS Administered Medications: No medications were administered Disposition Summary: 09/02/21 19:42 Discharge Ordered Location: Home sp3 Condition: Stable sp3 Diagnosis - UTI/ Urinary tract infection, site not specified sp3 Followup: sp3 - With: Private Physician - When: Upon discharge from the Emergency Department - Reason: Continuance of care Discharge Instructions: - Discharge Summary Sheet sp3 - Urinary Tract Infection, Adult sp3 Forms: - Medication Reconciliation Form sp3 - Thank You Letter sp3 - Antibiotic Education sp3 - Prescription Opioid Use sp3 Prescriptions: - Bactrim DS 800-160 mg Oral Tablet - take 1 tablet by ORAL route every 12 hours for 3 days; 6 tablet; Refills: 0, sp3 Product Selection Permitted Signatures: Dispatcher [employer] Mercy Christiansen RN RN vg1 Rosa Alatorre MD MD sp3
--- NOTE | 2021-09-02 19:42 | ER ---
Nurse's Notes [facility] Name: Rhea Carballo Age: 66 yrs Sex: Female : 1955 Arrival Date: 09/02/2021 Time: 17:41 Bed 13 Private MD: Diagnosis: UTI/ Urinary tract infection, site not specified Presentation: 09/02 18:31 Chief complaint: Patient states: pt was seen in ED on 08/18/21 and states has not taken vg1 antibiotics due to ABD pain. Also states headache x 5 days. Coronavirus screen: Vaccine status: Patient reports being unvaccinated. Client denies travel out of the [place] in the last 14 days. Ebola Screen: Patient negative for fever greater than or equal to 101.5 degrees Fahrenheit, and additional compatible Ebola Virus Disease symptoms. Initial Sepsis Screen: Does the patient meet any 2 criteria? No. Patient's initial sepsis screen is negative. Does the patient have a suspected source of infection? No. Patient's initial sepsis screen is negative. Risk Assessment: Do you want to hurt yourself or someone else? Patient reports no desire to harm self or others. Onset of symptoms was August 18, 2021. 18:31 Method Of Arrival: Ambulatory vg1 18:31 Acuity: МАРИНА 3 vg1 Triage Assessment: 18:31 General: Appears in no apparent distress. uncomfortable, Behavior is calm, cooperative. vg1 Pain: Complains of pain in abdomen Pain. GI: Abdomen is flat, non-distended. : Denies burning with urination. Historical: - Allergies: 18:34 Iodine; vg1 - Home Meds: 18:34 BuSpar Oral [Active]; levothyroxine oral [Active]; lisinopril Oral [Active]; Wellbutrin vg1 SR Oral [Active]; - PMHx: 18:34 chronic back pain; Depression; GI Bleed; Hypothyroidism; SEROTONIN SYNDROME; vg1 - Immunization history:: Client reports having NOT received the Covid vaccine. - Social history:: Smoking status: Patient denies any tobacco usage or history of. Screenin:59 Abuse screen: Denies threats or abuse. Denies injuries from another. Nutritional jg9 screening: No deficits noted. Tuberculosis screening: No symptoms or risk factors identified. Fall Risk None identified. Assessment: 18:58 General: Appears in no apparent distress. Behavior is calm, cooperative. Pain: j9 Complains of pain in back of head. Neuro: No deficits noted. Cardiovascular: No deficits noted. Respiratory: Reports cough that is non-productive. GI: Reports lower abdominal pain, abd pain is only when patient takes abx. : No deficits noted. EENT: No deficits noted. Derm: No deficits noted. 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 19:00 Reassessment: Patient reports a bad headache 8/10. Patient reports that she was being jg9 treated for a UTI but the abx causes her so much stomach discomfort so she stopped taking it. 19:02 GI: Bowel sounds present X 4 quads. jg9 19:04 GI: Abd is non tender X 4 quads. 9 Vital Signs: 18:31 BP 166 / 82; Pulse 82; Resp 16; Temp 99.1; Pulse Ox 99% ; Weight 63.5 kg; Height 5 ft. vg1 6 in. (167.64 cm); Pain 7/10; 18:57 BP 165 / 87; Pulse 79; Pulse Ox 100% on R/A; ap3 18:31 Body Mass Index 22.60 (63.50 kg, 167.64 cm) vg1 ED Course: 17:41 Patient arrived in ED. as 18:31 Arm band placed on. vg1 18:34 Triage completed. vg1 18:58 Jackie Marx is Primary Nurse. jg9 19:01 Patient has correct armband on for positive identification. Bed in low position. Call [facility] [place] light in reach. 19:09 Rosa Alatorre MD is Attending Physician. sp3 19:11 Sarwat Humphries PA is PHCP. cp 19:11 Rosa Alatorre MD is Attending Physician. cp 19:49 No provider procedures requiring assistance completed. IV discontinued. mr2 Administered Medications: No medications were administered Outcome: 19:42 Discharge ordered by . sp3 19:49 Discharged to home ambulatory. mr2 19:49 Condition: stable 19:49 Discharge instructions given to patient, Instructed on medication usage, Prescriptions given X 1. 19:50 Patient left the ED. mr2 Signatures: Jessica Champagne as Sarwat Humphries PA PA cp Megan Galeana, RN RN ap3 Mercy Clarke RN RN vg1 Rosa Alatorre MD MD sp3 Gopi Oswald RN RN mr2 Jackie Marx jg9 Corrections: (The following items were deleted from the chart) 18:36 18:31 Resp 16bpm; Temp 99.1F; 63.5 kg; Height 5 ft. 6 in.; BMI: 22.6; Pain 7/10; vg1 vg1
[2021-09-02 20:08] VITALS: TEMP 99.1
[2021-09-02 20:09] VITALS: BP 165/87; O2SAT 100
== END 2021-09-02 19:50 | disposition home or self-care (01) ==
LOC: ER 17:39
DX: N39.0 Urinary tract infection, site not specified (principal); E03.9 Hypothyroidism, unspecified
CPT/HCPCS: 81003; 99282

== ENCOUNTER 2021-09-27 00:08 | Emergency (ER) | payer SELFPAY ==
--- OUTSIDE RECORDS SUMMARY | 2021-09-27 00:14 | XMS REPORT | Continuity of Care Document ---
:1955 Author Organization [facility] t Address [address] [place] [address] Care Team Providers Name Role Phone Eulogio Mcknight MD Primary Care Physician PAUL SANTOS Attending Clinician Unavailable Team, Health Maintenance Attending Clinician Unavailable EULOGIO MCKNIGHT Attending Clinician Unavailable Eulogio Mcknight MD Attending Clinician CARLOS Attending Clinician Unavailable BONIFACIO Attending Clinician Unavailable PARADISE GRIFFITHS Attending Clinician Unavailable PAUL SANTOS Admitting Clinician Unavailable KIM, GRACE Admitting Clinician Unavailable CARLOS Admitting Clinician Unavailable CIVUNOLIVENTJosue Admitting Clinician Unavailable PARADISE GRIFFITHS Admitting Clinician Unavailable Problems Condition Condition Condition Status Onset Resolution Last Treating Co mments Source Name Details Category Date Date Treatment Clinician Date No known No known Disease Unive rs active active ity of problems problems [facility] Allergies, Adverse Reactions, Alerts Allergy Allergy Status Severity Reaction(s) Onset Inactive Treating Comm ents Source Name Type Date Date Clinician NO KNOWN Drug Active Univers ALLERGIE Class ity of S [facility] NO KNOWN Allergy Active [facility] ALLERGIE S Social History Social Habit Start Date Stop Date Quantity Comments Source History SDOH University o f Alcohol Std [place] [facility] Drinks Branch History SDOH University o f Alcohol Binge [place] [facility] History SDOH University o f Alcohol Comment [place] [facility] Exposure to Not sure University of SARS-CoV-2 [place] [facility] (event) Branch Alcohol intake 2021-08-16 2021-08-16 Lifetime University of 00:00:00 00:00:00 non-drinker [place] [facility] (finding) Branch History SDOH 2021-05-07 2021-05-07 1 University o f Alcohol Frequency 00:00:00 00:00:00 [facility] edical Branch Tobacco use and 2021-04-05 2021-04-05 Never used Universit y of exposure 00:00:00 00:00:00 [facility] Sex Ass[birth year] Universit y of 00:00:00 00:00:00 [facility] Smoking Status Start Date Stop Date Source Never smoker [facility] Medications Ordered Filled Start Stop Current Ordering Indication Dosage Frequency Signature Comments Components Source Medication Medication Date Date Medication? Clinician (SIG) Name Name levothyroxi 2020-09 Yes [id number] 150ug Take 1 Univers ne 150 mcg 1-29 tablet by ity of tablet 00:00: mouth [place] 00 every Medical morning. Branch busPIRone 5 2020-09 Yes [id number] 5mg Take 1 Univers mg tablet 1-29 tablet by ity o f 00:00: mouth 2 [place] (two) Medical times Branch daily. buPROPion 2020-09 Yes [id number] 150mg Take 1 Univers XL 1-29 tablet by ity of (WELLBUTRIN 00:00: mouth [place] XL) 150 mg 00 daily. Medical 24 hr Branch tablet lisinopriL 2020-09 Yes [id number] 20mg Take 1 U nivers 20 mg 1-29 tablet by ity of tablet 00:00: mouth [place] 00 daily. Medical Branch levothyroxi 2020-09 Yes [id number] 150ug Take 1 Univers ne 150 mcg 1-29 tablet by ity of tablet 00:00: mouth [place] 00 every Medical morning. Branch busPIRone 5 2020-09 Yes [id number] 5mg Take 1 Univers mg tablet 1-29 tablet by ity o f 00:00: mouth 2 [place] 00 (two) Medical times Branch daily. buPROPion 2020-09 Yes [id number] 150mg Take 1 Univers XL 1-29 tablet by ity of (WELLBUTRIN 00:00: mouth [place] XL) 150 mg 00 daily. Medical 24 hr Branch tablet lisinopriL 2020-09 Yes [id number] 20mg Take 1 U nivers 20 mg 1-29 tablet by ity of tablet 00:00: mouth [place] 00 daily. Medical Branch levothyroxi 2020-09 Yes [id number] 150ug Take 1 Univers ne 150 mcg 1-29 tablet by ity of tablet 00:00: mouth [place] 00 every Medical morning. Branch busPIRone 5 2020-09 Yes [id number] 5mg Take 1 Univers mg tablet 1-29 tablet by ity o f 00:00: mouth 2 [place] 00 (two) Medical times Branch daily. buPROPion 2020-09 Yes [id number] 150mg Take 1 Univers XL 1-29 tablet by ity of (WELLBUTRIN 00:00: mouth [place] XL) 150 mg 00 daily. Medical 24 hr Branch tablet lisinopriL 2020-09 Yes [id number] 20mg Take 1 U nivers 20 mg 1-29 tablet by ity of tablet 00:00: mouth [place] 00 daily. Medical Branch buPROPion 2020- No [id number] 150mg Take 1 Univers XL 8-20 -29 tablet by ity of (WELLBUTRIN 00:[place] XL[place] 150 mg 00 :00 daily. Medical 24 hr Branch tablet busPIRone 5 2020- No [id number] 5mg Take 1 Univers mg tablet 8-07 08- tablet by ity of 00:00: 00:00 mouth 2 [place] 00 :00 (two) Medical times Branch daily. levothyroxi 2020- No [id number] 150ug Take 1 Univers ne 150 mcg 8-20 - tablet by ity of tablet 00:00: 00:00 mouth [place] 00 :00 every Medical morning. Branch buPROPion 2020- No [id number] 150mg Take 1 Univers XL 8-20 -29 tablet by ity of (WE[place]BU[place]IN 00:[place] XL[place] 150 mg 00 :00 daily. Medical 24 hr Branch tablet busPIRone 5 2020- No [id number] 5mg Take 1 Univers mg tablet 8-20 -29 tablet by ity of 00:00: 00:00 mouth 2 [place] 00 :00 (two) Medical times [place] daily. levothyroxi 2020- No [id number] 150ug Take 1 [facility] ne 150 mcg 05-07 tablet by ity of tablet 00:00: 00:00 mouth [place] 00 :00 every Medical morning. [place] Vital Signs Vital Name Observation Time Observation Value Comments Source Systolic blood 2021-08-16 22:21:00 194 mm[Hg] Univer sity [facility] Diastolic blood 2021-08-16 22:21:00 91 mm[Hg] Unive rsity [facility] Heart rate 2021-08-16 22:20:00 66 /min [facility] Body height 2021-08-16 22:20:00 167.6 cm [facility] Body weight 2021-08-16 22:20:00 64.411 kg [facility] BMI 2021-08-16 22:20:00 22.92 kg/m2 [facility] Procedures This patient has no known procedures. Encounters Start End Encounter Admission Attending Care Care Encounter Source Date/Time Date/Time Type Type Clinicians Facility Department ID 2021-06-23 Inpatient ER TOM, RISHABH Gastro [id number] SLE 01:38:07 KATIANA 2021-09-08 2021-09-08 Telephone Team, [facility] KULWINDER [id number] [facility] 00:00:00 00:00:00 Health [place] [id number] it y of [place] [facility] [id number] [place] [id number] 2021-08-16 2021-08-16 Outpatient R JUAN LUIS [facility] [id number] [facility] 16:15:00 16:34:05 BRANDON [address]ández [facility] 2021-08-16 2021-08-16 Office Juan Luis [facility] [id number] [facility] 16:13:41 16:28:[address] [facility] [id number] it y of Eulogio QUINTERO [id number] Mark as NATE?BLEA [id number] [place] sanya PANDEY [address] [place] [address] MEDICAL OFFICE BUILDING 2019-11-13 2019-11-13 Emergency X [facility] ERT [id number] Univers 12:50:48 15:36:00 [place] [facility] Results Test Description Test Time Test Comments Results Result Sour e Comments TISSUE EXAM 2020-04-21 Surgical Pathology Report 16:49:00 Case: [id number] Authorizing Provider: Felix Banks MD Collected: 04/18/2020 02:34 PM Ordering Location: [address] Received: 04/20/2020 08:22 AM Service Pathologist: [...] see comment Signing Pathologist Direct Phone Line: [phone] y signed by Keyona Collado MD on 04/21/2020 at 4:49 PMSpecimen C. The features are nonspecific and may represent reflux associated changes in the appropriate clinical and endoscopic setting.[id number] x3, [id number] deficiency anemia.A. DuodenumB. Gastric biopsyC. Esophagus biopsy [...] evaluated Immunohistochemistry technical testing was performed at [facility], Pathology Laboratory where it was developed and [...] NOT 1092) ACCURATE CRE ATININE CLEARANCE IN HI EDICTING GLOMERULAR FILT RATION RATE. ESTIMATED GFR IS NOT APPLICABLE FOR DIALYSIS PATIENTS. Aircraft Inspection Record Clerk CHYNA - AMBERLYAYA LISABC (HEMOGRAM ONLY)2020-04-19 05:45:00 Test Item Value Reference [...] WBC 0-0 (BEAKER) (test code = 413) [id number] 05:41:00 Test Item Value Reference Range Interpretation Comments CORTISOL, TOTAL (BEAKER) (test code 7.1 ug/dL 3.7-19.4 = 2755) Aircraft Inspection Record Clerk ID - PIAYA LBASIC METABOLIC [id number] 04:01:00 Test Item Value Reference Range Interpretation [...] S NOT APPLICABLE FOR DIALYSIS PATIEN TS. Aircraft Inspection Record Clerk ID - EDASIHEMOGLOBIN AND [id number] 03:00:00 Test Item Value Reference Range Interpretation Comments HEMOGLOBIN (BEAKER) (test code = 7.7 GM/DL 11.2-15.7 L 410) HEMATOCRIT (BEAKER) (test code = 25.7 % 34.1-44.9 L 411) Aircraft Inspection Record Clerk ID - [id number] (HEMOGRAM ONLY)2020-04-18 03:00:00 Test [...] 0-0 (BEAKER) (test code = 413) SARS-COV2/RT-PCR ([facility])2020-04-17 14:53:00 Test Item Value Reference Range Interpretation Comments SARS-COV2/RT-PCR (test Negative Not Detected, Negative, code = 5154012) See external report for linked test SARS-COV-2 PERFORMING LAB [facility] LIANA (test code = 8826342) Negative result for this test determines that [...] 564(g) of the Act.Fact Sheet for Healthcare Providers:https://www.quidel.com/sites/default/files/product/documents/Fact_Shee j_YX_Xqvpzciee_Zpby_OXFH-XhO-9.pdfFact Sheet for Healthcare Patients:https://www.Okanjoidel.com/sites/default/files/product/ documents/Ljhn_Ptboo_Svlhirqw_Jcjv_UJLH-WuS-9.pdfPerforming Laboratory:[place] [address] [place], [place] [address]NB, BRAIN, WITHOUT [id number] 11:46:00FINAL REPORT CT, BRAIN, WITHOUT CONTRAST INDICATION: [...] for further characterization. Signed: JR Gan Robert MDReport Verified Date/Time: 04/17/2020 11:46:51 ReadingLocation: [facility] B1 C013V Neuro Reading Room TROPONIN [id number] 10:30:00 Test Item Value Reference Range Interpretation Comments TROPONIN I (ROBSON) (test code = 397) < ng/mL 0.00-0.03 [...] failure, acidosis, acute neurological disease, and persistent tachyarrhythmia.Aircraft Inspection Record Clerk ID - [id number] 10:24:00 Test Item Value Reference Range Interpretation Comments LIPASE (ROBSON) (test code = 749) 30 U/L 8-78 Aircraft Inspection Record Clerk ID - NTPCOMPREHENSIVE METABOLIC [id number] 10:17:00 Test Item Value Reference Range Interpretation [...] S NOT APPLICABLE FOR DIALYSIS PATIEN TS. Aircraft Inspection Record Clerk ID - [id number] 09:59:00 Test Item Value Reference Range Interpretation Comments FERRITIN (BEAKER) (test code = 361) < ng/mL 5.00-275.00 L Aircraft Inspection Record Clerk ID - NTPTSH/FREE T4 IF [id number] 09:50:00 Test Item Value Reference Range Interpretation Comments THYROID STIMULATING HORMONE 4.140 uIU/mL 0.350-4.940 (BEAKER) (test code = 772) Aircraft Inspection Record Clerk ID - NTPVITAMIN B12 AND [id number] 09:50:00 Test Item Value Reference Range Interpretation Comments VITAMIN B12 (BEAKER) (test code = 332 pg/mL 213-816 774) FOLATE (BEAKER) (test code = 362) 6.20 ng/mL >=7.00 L Aircraft Inspection Record Clerk ID - NTPCBC W/PLT COUNT & AUTO [id number] 09:28:00 Test Item Value Reference Range Interpretation [...] % 20-55 L (test code = 2590) Aircraft Inspection Record Clerk ID - NTPPROTHROMBIN [id number] 09:10:00 Test Item Value Reference Range Interpretation [...] mechanical heart valves.CBC W/PLT COUNT & AUTO [id number] 07:04:00 Test Item Value Reference Range Interpretation [...] (BEAKER) (test code = 2801) BASIC METABOLIC [id number] 06:54:00 Test Item Value Reference Range Interpretation [...] APPLICABLE FOR DIALYSIS PATIEN TS. HEMOGLOBIN AND [id number] 23:13:00 Test Item Value Reference Range Interpretation Comments HEMOGLOBIN (BEAKER) (test code = 7.8 GM/DL 11.2-15.7 L 410) HEMATOCRIT (BEAKER) (test code = 25.1 % 34.1-44.9 L 411) HEMOGLOBIN AND [id number] 18:29:00 Test Item Value Reference Range Interpretation Comments HEMOGLOBIN (BEAKER) (test code = 7.6 GM/DL 11.2-15.7 L 410) HEMATOCRIT (BEAKER) (test code = 24.4 % 34.1-44.9 L 411) HEMOGLOBIN AND [id number] 09:57:00 Test Item Value Reference Range Interpretation Comments HEMOGLOBIN (BEAKER) (test code = 7.2 GM/DL 11.2-15.7 L 410) HEMATOCRIT (BEAKER) (test code = 23.2 % 34.1-44.9 L 411) [id number] 05:50:00 Test Item Value Reference Range Interpretation Comments PHOSPHORUS (BEAKER) (test code = 2.9 mg/dL 2.3-4.7 604) [id number] 05:50:00 Test Item Value Reference Range Interpretation Comments MAGNESIUM (BEAKER) (test code = 2.0 mg/dL 1.6-2.6 627) BASIC METABOLIC [id number] 05:50:00 Test Item Value Reference Range Interpretation [...] APPLICABLE FOR DIALYSIS PATIEN TS. HEPATIC FUNCTION [id number] 05:50:00 Test Item Value Reference Range Interpretation [...] 6-55 347) CBC W/PLT COUNT & AUTO [id number] 05:40:00 Test Item Value Reference Range Interpretation [...] PERCENT (BEAKER) (test code = 2801) PROTHROMBIN [id number] 05:29:00 Test Item Value Reference Range Interpretation [...] wiht mechanical heart valves.RAD, ABDOMEN/KUB, 1 VIEW [id number] 02:43:00Reason for exam:->bloatingShould this be performed at [...] Verified Date/Time: 06/16/2019 02:43:11 RAPID INFLUENZA A&B [id number] 01:49:00 Test Item Value Reference Range Interpretation Comments RAPID INFLUENZA A AG (BEAKER) Negative Negative, Inconclusive (test code = 1622) RAPID INFLUENZA B AG (BEAKER) Negative Negative, Inconclusive (test code = 1623) RAD, CHEST, 1 VIEW, NON [id number] 01:08:00Reason for exam:->coughShould this be performed at [...] Guille Barragan Verified Date/Time: 06/16/2019 01:08:45 BLOOD [id number] 08:00:00 Test Item Value Reference Range Interpretation Comments CULTURE (BEAKER) (test No growth in 5 days code = 1095) BLOOD [id number] 20:01:00 Test Item Value Reference Range Interpretation Comments CULTURE (BEAKER) (test No growth in 5 days code = 1095) TISSUE [id number] 12:58:00Surgical Pathology Report Case: [id number] Authorizing Provider: Len Waggoner, Collected: 06/10/2019 1111 Ordering Location: [place] [address] ICU Received: 06/10/2019 1601 Pathologist: Fernando Plascencia [...] DYSPLASIA/ MALIGNANCY Signing Pathologist Direct Phone Line: [phone] signed by Fernando Plascencia MD on 06/12/2019 at 12:58 PMB. Detached/ loosely adherent refractile foreign material is seen in the biopsy, likely representing pill fragments. Clinical and endoscopic correlation is recommended.[id number] bleedingA. Specimen is received in formalin labeled [...] evaluated Immunohistochemistry technical testing was performed at [facility], Pathology Laboratory where it was developed and [...] certified under the Clinical Laboratory Improvement Amendments fb1262 (CLIA-88) as qualified to perform high complexity clinical laboratory testing.POCT- GLUCOSE [id number] 11:45:00 Test Item Value Reference Range Interpretation Comments POC-GLUCOSE METER 85 mg/dL 70-110 TESTED AT [place] [address] ([facility]) (test code = [address]UDI [address] [facility] [address] 1538) T4, [id number] 08:58:00 Test Item Value Reference Range Interpretation Comments FREE T4 (AKER) (test code = 655) 0.58 ng/dL 0.70-1.48 L POCT-GLUCOSE [id number] 08:02:00 Test Item Value Reference Range Interpretation Comments POC-GLUCOSE METER 91 mg/dL 70-110 TESTED AT [place] [address] ([facility]) (test code = AUDI [address] [facility] [address] 1538) TSH/FREE T4 IF [id number] 06:57:00 Test Item Value Reference Range Interpretation [...] WBC 0-0 (BEAKER) (test code = 413) [id number] 06:42:00 Test Item Value Reference Range Interpretation Comments PHOSPHORUS (BEAKER) (test code = 2.7 mg/dL 2.3-4.7 604) [id number] 06:42:00 Test Item Value Reference Range Interpretation Comments MAGNESIUM (BEAKER) (test code = 2.0 mg/dL 1.6-2.6 627) COMPREHENSIVE METABOLIC [id number] 06:42:00 Test Item Value Reference Range Interpretation [...] L (test code = 697) AST (SGOT) (AKER) 14 U/L 5-34 (test code = 353) ALT (SGPT) ([facility]) 8 U/L 6-55 (test code = 347) EGFR (BEAKER) (test 51 mL/min/1.73 ESTIMA BHAVANA GFR IS code = 1092) sq m NOT ACCURATE CREATININE CLEARANCE IN PREDICTING GLOMERULAR FILTRATION RATE . ESTIMATED GFR I S NOT APPLICABLE FOR DIALYSIS PATIEN TS. POCT-GLUCOSE [id number] 23:02:00 Test Item Value Reference Range Interpretation Comments POC-GLUCOSE METER 113 mg/dL 70-110 H TESTED AT [place] [address] ([facility]) (test code = AUDI [address] [facility] 1538) [address] T3, [id number] 18:30:00 Test Item Value Reference Range Interpretation Comments T3 FREE ([facility]) < pg/mL 1.71-3.71 L Testing per formed at [facility] (test code = 908) DIAGNOSTIC S [address] [address] [id number] 18:30:00 Test Item Value Reference Range Interpretation Comments T3 TOTAL ([facility]) 27 ng/dL 48-159 L Testing pe rformed at (test code = 656) [facility] [place] [address] [place] [address] POCT-GLUCOSE [id number] 18:14:00 Test Item Value Reference Range Interpretation Comments POC-GLUCOSE METER 106 mg/dL 70-110 TESTED AT [place] [address] ([facility]) (test code = AUDI [address]ock [facility] 1538) [address] HEMOGLOBIN AND [id number] 18:09:00 Test Item Value Reference Range Interpretation Comments HEMOGLOBIN (AKER) (test code = 8.4 GM/DL 11.2-15.7 L 410) HEMATOCRIT ([facility]) (test code = 26.4 % 34.1-44.9 L 411) POCT-GLUCOSE [id number] 12:28:00 Test Item Value Reference Range Interpretation Comments POC-GLUCOSE METER 132 mg/dL 70-110 H TESTED AT [place] [address] ([facility]) (test code = AUDI [address]ock [facility] 1538) [address] CORTISOL,60 [id number] 10:34:00 Test Item Value Reference Range Interpretation [...] a study by Stu et al (VIANEY 2000,283(8):4022-45), the ACTH Stimulation Test provides important prognostic [...] serum cortisollevel 60 minutes after cosyntropin administration. CORTISOL,[id number] 09:20:00 Test Item Value Reference Range Interpretation Comments CORTISOL, BASELINE (BEAKER) (test 8.4 ug/dL code = 1803) ACTH [...] = 2.0 mg/dL 1.6-2.6 627) COMPREHENSIVE METABOLIC [id number] 07:16:00 Test Item Value Reference Range Interpretation [...] S NOT APPLICABLE FOR DIALYSIS PATIEN TS. [id number] 07:01:00 Test Item Value Reference Range Interpretation [...] (test code = 2590) VITAMIN B12 AND [id number] 06:14:00 Test Item Value Reference Range Interpretation Comments VITAMIN B12 (BEAKER) (test code = 285 pg/mL 213-816 774) FOLATE (BEAKER) (test code = 362) 6.3 ng/mL >=7.0 L [id number] 06:05:00 Test Item Value Reference Range Interpretation Comments CORTISOL, TOTAL (BEAKER) (test code 3.2 ug/dL 3.7-19.4 L = 2755) HIV-1 ANTIGEN WITH HIV-1/2 [id number] 06:04:00 Test Item Value Reference Range Interpretation Comments HIV-1 ANTIGEN WITH HIV 1\\T\\2 Nonreactive Nonreactive ANTIBODY (2) (BEAKER) (test code = 2586) [id number] 06:03:00 Test Item Value Reference Range Interpretation [...] 0-0 (BEAKER) (test code = 413) RETICULOCYTE [id number] 05:08:00 Test Item Value Reference Range Interpretation Comments RETICULOCYTE COUNT PCT (BEAKER) (test 2.9 % 0.5-1.7 H code = 575) POCT-GLUCOSE [id number] 22:01:00 Test Item Value Reference Range Interpretation Comments POC-GLUCOSE METER 132 mg/dL 70-110 H TESTED AT [facility] 6720 (BEAKER) (test code = AUDI [place] 1538) [address] HEMOGLOBIN AND [id number] 21:02:00 Test Item Value Reference Range Interpretation Comments HEMOGLOBIN (BEAKER) (test code = 8.1 GM/DL 11.2-15.7 L 410) HEMATOCRIT (BEAKER) (test code = 25.5 % 34.1-44.9 L 411) T4, [id number] 11:38:00 Test Item Value Reference Range Interpretation Comments FREE T4 (BEAKER) (test code = 655) 0.46 ng/dL 0.70-1.48 L TSH/FREE T4 IF [id number] 11:00:00 Test Item Value Reference Range Interpretation Comments THYROID STIMULATING HORMONE 34.88 uIU/mL 0.35-4.94 H (BEAKER) (test code = 772) HEMOGLOBIN AND [id number] 10:21:00 Test Item Value Reference Range Interpretation Comments HEMOGLOBIN (BEAKER) (test code = 8.9 GM/DL 11.2-15.7 L 410) HEMATOCRIT (BEAKER) (test code = 27.3 % 34.1-44.9 L 411) [id number] 05:22:00 Test Item Value Reference Range Interpretation Comments PHOSPHORUS (BEAKER) (test code = 2.9 mg/dL 2.3-4.7 604) [id number] 05:22:00 Test Item Value Reference Range Interpretation Comments MAGNESIUM (BEAKER) (test code = 2.0 mg/dL 1.6-2.6 627) COMPREHENSIVE METABOLIC [id number] 05:22:00 Test Item Value Reference Range Interpretation [...] U/L 29-200 code = 380) LACTIC ACID, [id number] 05:09:00 Test Item Value Reference Range Interpretation [...] 0-0 (BEAKER) (test code = 413) POCT-GLUCOSE [id number] 00:51:00 Test Item Value Reference Range Interpretation Comments POC-GLUCOSE METER 88 mg/dL 70-110 TESTED AT [facility] 67 (BEAKER) (test code = AUDI Pollock [facility] [address] 1538) CHLORIDE, RANDOM [id number] 19:35:00 Test Item Value Reference Range Interpretation Comments CHLORIDE URINE (BEAKER) (test code = 80 meq/L 682) Reference Range: No NormalsCREATININE, RANDOM [id number] 19:35:00 Test Item Value Reference Range Interpretation Comments CREATININE URINE (BEAKER) (test 74.8 mg/dL code = 375) Reference Range: No NormalsSODIUM, RANDOM [id number] 19:35:00 Test Item Value Reference Range Interpretation Comments SODIUM URINE (BEAKER) (test code = 97 meq/L 243) Reference Range: No NormalsURINALYSIS W/ REFLEX URINE [id number] 18:59:00 Test Item Value Reference Range Interpretation [...] 514) SOURCE(BEAKER) (test code = 2795) POCT-GLUCOSE [id number] 18:16:00 Test Item Value Reference Range Interpretation Comments POC-GLUCOSE METER 71 mg/dL 70-110 TESTED AT [facility] 6720 (BEAKER) (test code = AUDI Pollock [facility] [address] 1538) T4, [id number] 18:06:00 Test Item Value Reference Range Interpretation Comments FREE T4 (BEAKER) (test code = 655) < ng/dL 0.70-1.48 L HEPATIC FUNCTION [id number] 17:52:00 Test Item Value Reference Range Interpretation [...] 14 U/L 6-55 347) TSH/FREE T4 IF [id number] 17:49:00 Test Item Value Reference Range Interpretation Comments THYROID STIMULATING HORMONE 125.05 uIU/mL 0.35-4.94 H (BEAKER) (test code = 772) [id number] 16:49:00 Test Item Value Reference Range Interpretation Comments MAGNESIUM (BEAKER) (test code = 1.8 mg/dL 1.6-2.6 627) BASIC METABOLIC [id number] 16:49:00 Test Item Value Reference Range Interpretation [...] S NOT APPLICABLE FOR DIALYSIS PATIEN TS. [id number] 16:41:00 Test Item Value Reference Range Interpretation [...] INR is2.5-3.5 for patients wiht mechanical heart valves.[id number] 16:41:00 Test Item Value Reference Range Interpretation [...] code = 413) RAD, ABDOMEN/KUB, 1 VIEW [id number] 16:14:00Reason for exam:->abdominal distentionShould this be performed [...] etc. No acute skeletal abnormality. Signed: Moshe Gutierrezeport Verified Date/Time: 06/09/2019 16:14:10 Reading Location: [address] Transitional Reading Room Electronicallysigned by: MOSHE GUTIERREZ M.D. on 06/09/2019 04:14 PM
--- NOTE | 2021-09-27 00:51 | ER ---
Nurse's Notes [facility] Name: Rhea Carballo Age: 66 yrs Sex: Female : 1955 Arrival Date: 09/27/2021 Time: 00:18 Bed 9 Private MD: Diagnosis: Adjustment disorder with anxiety;Extrapyramidal and movement disorder, unspecified Presentation: 09/27 00:19 Chief complaint: EMS states: " she ran out of her anxiety medication. She had an tw5 argument with her son and was emotionally distressed. We were able to calm her down. Police were originally on the scene.". 00:19 Method Of Arrival: EMS: [facility] tw5 Triage Assessment: 01:01 General: Appears in no apparent distress. Behavior is anxious. tw5 Historical: - Allergies: 01: Iodine; tw5 - Home Meds: 01:01 BuSpar Oral [Active]; levothyroxine oral [Active]; lisinopril Oral [Active]; Wellbutrin tw5 SR Oral [Active]; - PMHx: 01:01 chronic back pain; Depression; GI Bleed; Hypothyroidism; SEROTONIN SYNDROME; tw5 - Immunization history:: Client reports having NOT received the Covid vaccine. - Social history:: Smoking status: unknown. - Family history:: not pertinent. Screenin:02 Abuse screen: Denies threats or abuse. Denies injuries from another. Nutritional tw5 screening: No deficits noted. Tuberculosis screening: No symptoms or risk factors identified. Fall Risk None identified. Assessment: 00:31 General: Reports "I am just getting so much anxiety just sitting here. I didn't know tw5 what you wanted me to do. " Patient was seen passing the hallway. Nursing staff guided patient back to room and instructed her to stay in the room. General: Appears unkempt, Behavior is agitated, anxious, restless. Pain: Denies pain. Neuro: Level of Consciousness is awake, alert. Respiratory: Airway is patent Trachea midline Respiratory effort is even, unlabored, Respiratory pattern is regular. Vital Signs: 01:01 BP 143 / 68; Pulse 75; Resp 18; Temp 98.1; Pulse Ox 100% on R/A; tw5 ED Course: 00:18 Patient arrived in ED. cs9 00:18 Sarwat Foss MD is Attending Physician. [facility] 00:19 Radha Villeda is Primary Nurse. 00:31 Pt. is pacing. 00:31 Patient has correct armband on for positive identification. 00:50 Derek Aquino MD is Referral Physician. [facility] : Arm band placed on. : No provider procedures requiring assistance completed. Patient did not have IV access tw5 during this emergency room visit. Administered Medications: No medications were administered Outcome: 00:50 Discharge ordered by . [facility] : Discharged to home ambulatory. : Condition: good 01:02 Discharge instructions given to patient, Instructed on discharge instructions, follow up and referral plans. 01:03 Patient left the ED. Signatures: Sarwat Foss MD MD cha Wood, Tiffany tw5 Shanelle Moreno cs9
--- NOTE | 2021-09-27 00:52 | EDPHYS ---
Physician Documentation [facility] Name: Rhea Carballo Age: 66 yrs Sex: Female : 1955 Arrival Date: 09/27/2021 Time: 00:18 Bed 9 Private MD: ED Physician Sarwat Foss HPI: 09/27 00:30 This 66 yrs old Female presents to ER via EMS with complaints of Psych brooke Problem. 00:30 The patient presents to the emergency department with anxiety, over a relationship, brooke son. Onset: The symptoms/episode began/occurred just prior to arrival. Past psychiatric history: Prior diagnosis: no previous psychiatric diagnosis known. Associated signs and symptoms: The patient has no apparent associated signs or symptoms. Severity of symptoms: At their worst the symptoms were mild in the emergency department the symptoms have resolved and did so just prior to arrival. The patient has experienced similar episodes in the past, several times. Historical: - Allergies: 01: Iodine; tw5 - Home Meds: 01:01 BuSpar Oral [Active]; levothyroxine oral [Active]; lisinopril Oral [Active]; Wellbutrin tw5 SR Oral [Active]; - PMHx: 01:01 chronic back pain; Depression; GI Bleed; Hypothyroidism; SEROTONIN SYNDROME; tw5 - Immunization history:: Client reports having NOT received the Covid vaccine. - Social history:: Smoking status: unknown. - Family history:: not pertinent. ROS: 00:31 Constitutional: Negative for fever, chills, and weight loss, Eyes: Negative for injury, brooke pain, redness, and discharge, ENT: Negative for injury, pain, and discharge, Neck: Negative for injury, pain, and swelling, Cardiovascular: Negative for chest pain, palpitations, and edema, Respiratory: Negative for shortness of breath, cough, wheezing, and pleuritic chest pain, Abdomen/GI: Negative for abdominal pain, nausea, vomiting, diarrhea, and constipation, Back: Negative for injury and pain, : Negative for injury, bleeding, discharge, and swelling, MS/Extremity: Negative for injury and deformity, Skin: Negative for injury, rash, and discoloration, Neuro: Negative for headache, weakness, numbness, tingling, and seizure, Psych: Negative for depression, anxiety, suicide ideation, homicidal ideation, and hallucinations, Allergy/Immunology: Negative for hives, rash, and allergies, Endocrine: Negative for neck swelling, polydipsia, polyuria, polyphagia, and marked weight changes, Hematologic/Lymphatic: Negative for swollen nodes, abnormal bleeding, and unusual bruising. Exam: 00:47 Constitutional: This is a well developed, well nourished patient who is awake, alert, brooke and in no acute distress. Head/Face: Normocephalic, atraumatic. Eyes: Pupils equal round and reactive to light, extra-ocular motions intact. Lids and lashes normal. Conjunctiva and sclera are non-icteric and not injected. Cornea within normal limits. Periorbital areas with no swelling, redness, or edema. ENT: Nares patent. No nasal discharge, no septal abnormalities noted. Tympanic membranes are normal and external auditory canals are clear. Oropharynx with no redness, swelling, or masses, exudates, or evidence of obstruction, uvula midline. Mucous membranes moist. Neck: Trachea midline, no thyromegaly or masses palpated, and no cervical lymphadenopathy. Supple, full range of motion without nuchal rigidity, or vertebral point tenderness. No Meningismus. Chest/axilla: Normal chest wall appearance and motion. Nontender with no deformity. No lesions are appreciated. Cardiovascular: Regular rate and rhythm with a normal S1 and S2. No gallops, murmurs, or rubs. Normal PMI, no JVD. No pulse deficits. Respiratory: Lungs have equal breath sounds bilaterally, clear to auscultation and percussion. No rales, rhonchi or wheezes noted. No increased work of breathing, no retractions or nasal flaring. Abdomen/GI: Soft, non-tender, with normal bowel sounds. No distension or tympany. No guarding or rebound. No evidence of tenderness throughout. Back: No spinal tenderness. No costovertebral tenderness. Full range of motion. Female : Normal external genitalia. Skin: Warm, dry with normal turgor. Normal color with no rashes, no lesions, and no evidence of cellulitis. MS/ Extremity: Pulses equal, no cyanosis. Neurovascular intact. Full, normal range of motion. Psych: Awake, alert, with orientation to person, place and time. Behavior, mood, and affect are within normal limits. 00:47 Neuro: Orientation: is normal, appropriate for stated age, no acute changes, Mentation: is normal, appropriate for stated age, no acute changes, Memory: is normal, appropriate for stated age, no acute changes, Cranial nerves: grossly normal, is grossly normal based on the patient's age, no acute changes, Cerebellar function: constant chorea form movements, Motor: moves all fours, Sensation: is normal, no obvious gross deficits, appropriate no acute changes, Gait: is steady, appropriate for age, seizure activity, is not displayed by the patient. Vital Signs: 01:01 BP 143 / 68; Pulse 75; Resp 18; Temp 98.1; Pulse Ox 100% on R/A; tw5 MDM: 00:18 Patient medically screened. brooke 00:48 Differential diagnosis: drug withdrawal. acute psychotic break, depression, psychosis brooke secondary to non-compliance. Data reviewed: vital signs, nurses notes. Data interpreted: electronic device monitor: not applicable for this patient encounter. rate is 68 beats/min, rhythm is regular, Pulse oximetry: on room air is 96 %. Counseling: I had a detailed discussion with the patient and/or guardian regarding: the historical points, exam findings, and any diagnostic results supporting the discharge/admit diagnosis, the need for outpatient follow up, for definitive care, a family practitioner, a neurologist. Administered Medications: No medications were administered Disposition Summary: 09/27/21 00:50 Discharge Ordered Location: Home brooke Problem: new brooke Symptoms: have improved brooke Condition: Stable brooke Diagnosis - Adjustment disorder with anxiety brooke - Extrapyramidal and movement disorder, unspecified brooke Followup: brooke - With: Private Physician - When: 2 - 3 days - Reason: Recheck today's complaints, Continuance of care, Re-evaluation by your physician Followup: brooke - With: Derek Aquino MD - When: 2 - 3 days - Reason: Recheck today's complaints, Re-evaluation by your physician Discharge Instructions: - Discharge Summary Sheet brooke - Panic Attack, [id number] brooke - Managing Anxiety, Adult brooke Forms: - Medication Reconciliation Form brooke - Thank You Letter brooke - Antibiotic Education brooke - Prescription Opioid Use brooke Signatures: Sarwat Foss MD MD cha Wood, Tiffany tw5
[2021-09-27 01:11] VITALS: BP 143/68; TEMP 98.1; O2SAT 100
== END 2021-09-27 01:03 | disposition home or self-care (01) ==
LOC: ER 00:08
DX: F43.24 Adjustment disorder with disturbance of conduct (principal); G25.9 Extrapyramidal and movement disorder, unspecified; F32.A Depression, unspecified; E03.9 Hypothyroidism, unspecified
CPT/HCPCS: 99283

== ENCOUNTER 2021-10-16 12:31 | Emergency (ER) | payer SELFPAY ==
--- OUTSIDE RECORDS SUMMARY | 2021-10-16 12:35 | XMS REPORT | Continuity of Care Document ---
:1955 Author Organization [facility] t Address [address] [place] [address] Care Team Providers Name Role Phone Eulogio [...] rs active active ity of problems problems [facility] Allergies, Adverse Reactions, Alerts Allergy Allergy Status Severity Reaction(s) Onset Inactive Treating Comm ents Source Name Type Date Date Clinician NO KNOWN Drug Active Univers ALLERGIE Class ity of S [facility] NO KNOWN Allergy Active [facility] ALLERGIE S [...] used Universit y of exposure 00:00:00 00:00:00 [facility] Sex Ass[birth year] Universit y of 00:00:00 00:00:00 [facility] Smoking Status Start Date Stop Date Source Never smoker [facility] Medications Ordered Filled Start Stop Current Ordering Indication Dosage Frequency Signature Comments Components Source Medication Medication Date Date Medication? Clinician (SIG) Name Name levothyroxi 2020-09 Yes [id number] 150ug Take 1 Univers ne 150 mcg 1-29 tablet by ity of tablet 00:00: mouth [place] 00 every Medical morning. Branch busPIRone 5 2020-09 Yes [id number] 5mg Take 1 Univers mg tablet 1-29 tablet by ity o f 00:00: mouth 2 [place] (two) Medical times Branch daily. buPROPion 2020-09 Yes [id number] 150mg Take 1 Univers XL 1-29 tablet by ity of (WELLBUTRIN 00:00: mouth [place] XL) 150 mg 00 daily. Medical 24 hr Branch tablet lisinopriL 2020-09 Yes [id number] 20mg Take 1 U nivers 20 mg 1-29 tablet by ity of tablet 00:00: mouth [place] 00 daily. Medical Branch levothyroxi 2020-09 Yes [id number] 150ug Take 1 Univers ne 150 mcg 1-29 tablet by ity of tablet 00:00: mouth [place] 00 every Medical morning. Branch busPIRone 5 2020-09 Yes [id number] 5mg Take 1 Univers mg tablet 1-29 tablet by ity o f 00:00: mouth 2 [place] 00 (two) Medical times Branch daily. buPROPion 2020-09 Yes [id number] 150mg Take 1 Univers XL 1-29 tablet by ity of (WELLBUTRIN 00:00: mouth [place] XL) 150 mg 00 daily. Medical 24 hr Branch tablet lisinopriL 2020-09 Yes [id number] 20mg Take 1 U nivers 20 mg 1-29 tablet by ity of tablet 00:00: mouth [place] 00 daily. Medical Branch levothyroxi 2020-09 Yes [id number] 150ug Take 1 Univers ne 150 mcg 1-29 tablet by ity of tablet 00:00: mouth [place] 00 every Medical morning. Branch busPIRone 5 2020-09 Yes [id number] 5mg Take 1 Univers mg tablet 1-29 tablet by ity o f 00:00: mouth 2 [place] 00 (two) Medical times Branch daily. buPROPion 2020-09 Yes [id number] 150mg Take 1 Univers XL 1-29 tablet by ity of (WELLBUTRIN 00:00: mouth [place] XL) 150 mg 00 daily. Medical 24 hr Branch tablet lisinopriL 2020-09 Yes [id number] 20mg Take 1 U nivers 20 mg 1-29 tablet by ity of tablet 00:00: mouth [place] 00 daily. Medical Branch buPROPion 2020- No [id number] 150mg Take 1 [facility] XL 8-20 -29 tablet by ity of (WE[place]BU[place] XL[place] 150 mg 00 :00 daily. Medical 24 hr Branch tablet busPIRone 5 2020- No [id number] 5mg Take 1 Univers mg tablet 8-07 08- tablet by ity of 00:00: 00:00 mouth 2 [place] 00 :00 (two) Medical times Branch daily. levothyroxi 2020- No [id number] 150ug Take 1 Univers ne 150 mcg 8-20 - tablet by ity of tablet 00:00: 00:00 mouth [place] 00 :00 every Medical morning. Branch buPROPion 2020- No [id number] 150mg Take 1 [facility] XL 8-20 -29 tablet by ity of ([place]BU[place] 00:[place] XL[place] 150 mg 00 :00 daily. Medical 24 hr Branch tablet busPIRone 5 2020- No [id number] 5mg Take 1 Univers mg tablet 8-20 -29 tablet by ity of 00:00: 00:00 mouth 2 [place] 00 :00 (two) Medical times [place] daily. levothyroxi 2020- No [id number] 150ug Take 1 [facility] ne 150 mcg 05-07 tablet by ity of tablet 00:00: 00:00 mouth [place] 00 :00 every Medical morning. [place] Vital Signs Vital Name Observation Time Observation Value Comments Source Systolic blood 2021-08-16 22:21:00 194 mm[Hg] Univer sity [facility] Diastolic blood 2021-08-16 22:21:00 91 mm[Hg] Unive rsity [facility] Heart rate 2021-08-16 22:20:00 66 /min [facility] Body height 2021-08-16 22:20:00 167.6 cm [facility] Body weight 2021-08-16 22:20:00 64.411 kg [facility] BMI 2021-08-16 22:20:00 22.92 kg/m2 [facility] Procedures This patient has no known procedures. Encounters Start End Encounter Admission Attending Care Care Encounter Source Date/Time Date/Time Type Type Clinicians Facility Department ID 2021-06-23 Inpatient ER TOM, RISHABH Gastro [id number] SLE 01:38:07 KATIANA 2021-09-08 2021-09-08 Telephone Team, [facility] KULWINDER [id number] [facility] 00:00:00 00:00:00 Health [facility] [id number] [facility] [id number] [place] [id number] [address] 2021-08-16 2021-08-16 Outpatient R JUAN LUIS [facility] [id number] [facility] 16:15:00 16:34:05 BRANDON hernández [facility] 2021-08-16 2021-08-16 Office Juan Luis [facility] [id number] [facility] 16:13:41 16:28:41 Visit [facility] [id number] it y of Eulogio QUINTERO [id number] Mark as NATE?BLEA [id number] Md sanya PANDEY [address] [place] [address] MEDICAL OFFICE BUILDING 2019-11-13 2019-11-13 Emergency X [facility] ERT [id number] Univers 12:50:48 15:36:[address] [facility] Results Test Description Test Time Test Comments Results Result Sour e Comments TISSUE EXAM 2020-04-21 Surgical Pathology Report 16:49:00 Case: [id number] Authorizing Provider: Felix Banks MD Collected: 04/18/2020 02:34 PM Ordering Location: [address] Received: 04/20/2020 08:22 AM Service Pathologist: [...] see comment Signing Pathologist Direct Phone Line: [phone] y signed by Keyona Collado MD on 04/21/2020 at 4:49 PMSpecimen C. The features are nonspecific and may represent reflux associated changes in the appropriate clinical and endoscopic setting.[id number] x3, 42644Hntr deficiency anemia.A. DuodenumB. Gastric biopsyC. Esophagus biopsy [...] evaluated Immunohistochemistry technical testing was performed at [facility], Pathology Laboratory where it was developed [...] NOT 1092) ACCURATE CRE ATININE CLEARANCE IN NE EDICTING GLOMERULAR FILT RATION RATE. ESTIMATED GFR IS NOT APPLICABLE FOR DIALYSIS PATIENTS. Tube Worker CHYNA - AMBERLYAYA LISABC (HEMOGRAM ONLY)2020-04-19 05:45:00 [...] WBC 0-0 (BEAKER) (test code = 413) [id number] 05:41:00 Test Item Value Reference Range Interpretation Comments CORTISOL, TOTAL (BEAKER) (test code 7.1 ug/dL 3.7-19.4 = 2755) Tube Worker ID - PIAYA LBASIC METABOLIC [id number] 04:01:00 Test Item Value Reference Range Interpretation [...] S NOT APPLICABLE FOR DIALYSIS PATIEN TS. Tube Worker ID - EDASIHEMOGLOBIN AND [id number] 03:00:00 Test Item Value Reference Range Interpretation Comments HEMOGLOBIN (BEAKER) (test code = 7.7 GM/DL 11.2-15.7 L 410) HEMATOCRIT (BEAKER) (test code = 25.7 % 34.1-44.9 L 411) Tube Worker ID - [id number] (HEMOGRAM ONLY)2020-04-18 03:00:00 Test [...] 0-0 (BEAKER) (test code = 413) SARS-COV2/RT-PCR ([facility])2020-04-17 14:53:00 Test Item Value Reference Range Interpretation Comments SARS-COV2/RT-PCR (test Negative Not Detected, Negative, code = 2173718) See external report for linked test SARS-COV-2 PERFORMING LAB [facility] LIANA (test code = 9404511) Negative result for this test determines that [...] of the Act.Fact Sheet for Healthcare Providers:https://www.quidel.com/sites/default/files/product/documents/Fact_Shee c_XD_Pdbcbasnz_Wjxx_BTMT-KuD-1.pdfFact Sheet for Healthcare Patients:https://www.Goldcoll Gamesidel.com/sites/default/files/product/ documents/Vqzx_Uadhx_Tpketlwd_Bmqv_SAGX-WzS-3.pdfPerforming Laboratory:[place] [address] [address] [place], [place] [address]HB, BRAIN, WITHOUT [id number] 11:46:00FINAL REPORT CT, BRAIN, WITHOUT CONTRAST INDICATION: [...] Robert MDReport Verified Date/Time: 04/17/2020 11:46:51 ReadingLocation: [facility] B1 C013V Neuro Reading Room TROPONIN [id number] 10:30:00 Test Item Value Reference Range Interpretation [...] failure, acidosis, acute neurological disease, and persistent tachyarrhythmia.Tube Worker ID - [id number] 10:24:00 Test Item Value Reference Range Interpretation Comments LIPASE (ROBSON) (test code = 749) 30 U/L 8-78 Tube Worker ID - NTPCOMPREHENSIVE METABOLIC [id number] 10:17:00 Test Item Value Reference Range Interpretation [...] S NOT APPLICABLE FOR DIALYSIS PATIEN TS. Tube Worker ID - [id number] 09:59:00 Test Item Value Reference Range Interpretation Comments FERRITIN (BEAKER) (test code = 361) < ng/mL 5.00-275.00 L Tube Worker ID - NTPTSH/FREE T4 IF [id number] 09:50:00 Test Item Value Reference Range Interpretation Comments THYROID STIMULATING HORMONE 4.140 uIU/mL 0.350-4.940 (BEAKER) (test code = 772) Tube Worker ID - NTPVITAMIN B12 AND [id number] 09:50:00 Test Item Value Reference Range Interpretation Comments VITAMIN B12 (BEAKER) (test code = 332 pg/mL 213-816 774) FOLATE (BEAKER) (test code = 362) 6.20 ng/mL >=7.00 L Tube Worker ID - NTPCBC W/PLT COUNT & AUTO [id number] 09:28:00 Test Item Value Reference Range Interpretation [...] % 20-55 L (test code = 2590) Tube Worker ID - NTPPROTHROMBIN TIME/[id number] 09:10:00 Test Item Value Reference Range Interpretation [...] mechanical heart valves.CBC W/PLT COUNT & AUTO [id number] 07:04:00 Test Item Value Reference Range Interpretation [...] (BEAKER) (test code = 2801) BASIC METABOLIC [id number] 06:54:00 Test Item Value Reference Range Interpretation [...] APPLICABLE FOR DIALYSIS PATIEN TS. HEMOGLOBIN AND [id number] 23:13:00 Test Item Value Reference Range Interpretation Comments HEMOGLOBIN (BEAKER) (test code = 7.8 GM/DL 11.2-15.7 L 410) HEMATOCRIT (BEAKER) (test code = 25.1 % 34.1-44.9 L 411) HEMOGLOBIN AND [id number] 18:29:00 Test Item Value Reference Range Interpretation Comments HEMOGLOBIN (BEAKER) (test code = 7.6 GM/DL 11.2-15.7 L 410) HEMATOCRIT (BEAKER) (test code = 24.4 % 34.1-44.9 L 411) HEMOGLOBIN AND [id number] 09:57:00 Test Item Value Reference Range Interpretation Comments HEMOGLOBIN (BEAKER) (test code = 7.2 GM/DL 11.2-15.7 L 410) HEMATOCRIT (BEAKER) (test code = 23.2 % 34.1-44.9 L 411) [id number] 05:50:00 Test Item Value Reference Range Interpretation Comments PHOSPHORUS (BEAKER) (test code = 2.9 mg/dL 2.3-4.7 604) [id number] 05:50:00 Test Item Value Reference Range Interpretation Comments MAGNESIUM (BEAKER) (test code = 2.0 mg/dL 1.6-2.6 627) BASIC METABOLIC [id number] 05:50:00 Test Item Value Reference Range Interpretation [...] APPLICABLE FOR DIALYSIS PATIEN TS. HEPATIC FUNCTION [id number] 05:50:00 Test Item Value Reference Range Interpretation [...] 6-55 347) CBC W/PLT COUNT & AUTO [id number] 05:40:00 Test Item Value Reference Range Interpretation [...] PERCENT (BEAKER) (test code = 2801) PROTHROMBIN [id number] 05:29:00 Test Item Value Reference Range Interpretation [...] wiht mechanical heart valves.RAD, ABDOMEN/KUB, 1 VIEW [id number] 02:43:00Reason for exam:->bloatingShould this be performed at [...] Verified Date/Time: 06/16/2019 02:43:11 RAPID INFLUENZA A&B [id number] 01:49:00 Test Item Value Reference Range Interpretation Comments RAPID INFLUENZA A AG (BEAKER) Negative Negative, Inconclusive (test code = 1622) RAPID INFLUENZA B AG (BEAKER) Negative Negative, Inconclusive (test code = 1623) RAD, CHEST, 1 VIEW, NON [id number] 01:08:00Reason for exam:->coughShould this be performed at [...] Guille Barragan Verified Date/Time: 06/16/2019 01:08:45 BLOOD [id number] 08:00:00 Test Item Value Reference Range Interpretation Comments CULTURE (BEAKER) (test No growth in 5 days code = 1095) BLOOD [id number] 20:01:00 Test Item Value Reference Range Interpretation Comments CULTURE (BEAKER) (test No growth in 5 days code = 1095) TISSUE [id number] 12:58:00Surgical Pathology Report Case: [id number] Authorizing Provider: Len Waggoner, Collected: 06/10/2019 1111 Ordering Location: [place] [address] ICU Received: 06/10/2019 1601 Pathologist: Fernando Plascencia [...] DYSPLASIA/ MALIGNANCY Signing Pathologist Direct Phone Line: [phone] signed by Fernando Plascencia MD on 06/12/2019 at 12:58 PMB. Detached/ loosely adherent refractile foreign material is seen in the biopsy, likely representing pill fragments. Clinical and endoscopic correlation is recommended.[id number] bleedingA. Specimen is received in formalin labeled [...] evaluated Immunohistochemistry technical testing was performed at [facility], Pathology Laboratory where it was developed [...] certified under the Clinical Laboratory Improvement Amendments il9264 (CLIA-88) as qualified to perform high complexity clinical laboratory testing.POCT- GLUCOSE [id number] 11:45:00 Test Item Value Reference Range Interpretation Comments POC-GLUCOSE METER 85 mg/dL 70-110 TESTED AT [place] [address] ([facility]) (test code = AUDI Pollock [facility] [address] 1538) T4, [id number] 08:58:00 Test Item Value Reference Range Interpretation Comments FREE T4 (AKER) (test code = 655) 0.58 ng/dL 0.70-1.48 L POCT-GLUCOSE [id number] 08:02:00 Test Item Value Reference Range Interpretation Comments POC-GLUCOSE METER 91 mg/dL 70-110 TESTED AT [place] [address] ([facility]) (test code = AUDI [address]ock [facility] [address] 1538) TSH/FREE T4 IF [id number] 06:57:00 Test Item Value Reference Range Interpretation [...] WBC 0-0 (BEAKER) (test code = 413) [id number] 06:42:00 Test Item Value Reference Range Interpretation Comments PHOSPHORUS (BEAKER) (test code = 2.7 mg/dL 2.3-4.7 604) [id number] 06:42:00 Test Item Value Reference Range Interpretation Comments MAGNESIUM (BEAKER) (test code = 2.0 mg/dL 1.6-2.6 627) COMPREHENSIVE METABOLIC [id number] 06:42:00 Test Item Value Reference Range Interpretation [...] 5-34 (test code = 353) ALT (SGPT) ([facility]) 8 U/L 6-55 (test code = 347) EGFR (BEAKER) (test 51 mL/min/1.73 ESTIMA BHAVANA GFR IS code = 1092) sq m NOT ACCURATE CREATININE CLEARANCE IN PREDICTING GLOMERULAR FILTRATION RATE . ESTIMATED GFR I S NOT APPLICABLE FOR DIALYSIS PATIEN TS. POCT-GLUCOSE [id number] 23:02:00 Test Item Value Reference Range Interpretation Comments POC-GLUCOSE METER 113 mg/dL 70-110 H TESTED AT [place] [address] ([facility]) (test code = AUDI [address]ock [facility] 1538) [address] T3, [id number] 18:30:00 Test Item Value Reference Range Interpretation Comments T3 FREE ([facility]) < pg/mL 1.71-3.71 L Testing per formed at [employer] (test code = 908) DIAGNOSTIC S [address] [address] [id number] 18:30:00 Test Item Value Reference Range Interpretation Comments T3 TOTAL ([facility]) 27 ng/dL 48-159 L Testing pe rformed at (test code = 656) [facility] [place] [address] [place] [address] POCT-GLUCOSE [id number] 18:14:00 Test Item Value Reference Range Interpretation Comments POC-GLUCOSE METER 106 mg/dL 70-110 TESTED AT [place] [address] ([facility]) (test code = AUDI [address]ock [facility] 1538) [address] HEMOGLOBIN AND [id number] 18:09:00 Test Item Value Reference Range Interpretation Comments HEMOGLOBIN (AKER) (test code = 8.4 GM/DL 11.2-15.7 L 410) HEMATOCRIT ([facility]) (test code = 26.4 % 34.1-44.9 L 411) POCT-GLUCOSE [id number] 12:28:00 Test Item Value Reference Range Interpretation Comments POC-GLUCOSE METER 132 mg/dL 70-110 H TESTED AT [place] [address] ([facility]) (test code = AUDI Pollock [facility] 1538) [address] CORTISOL,60 [id number] 10:34:00 Test Item Value Reference Range Interpretation [...] a study by Stu et al (VIANEY 2000,283(8):6844-45), the ACTH Stimulation Test provides important prognostic [...] serum cortisollevel 60 minutes after cosyntropin administration. CORTISOL,[id number] 09:20:00 Test Item Value Reference Range Interpretation [...] = 2.0 mg/dL 1.6-2.6 627) COMPREHENSIVE METABOLIC [id number] 07:16:00 Test Item Value Reference Range Interpretation [...] S NOT APPLICABLE FOR DIALYSIS PATIEN TS. [id number] 07:01:00 Test Item Value Reference Range Interpretation [...] (test code = 2590) VITAMIN B12 AND [id number] 06:14:00 Test Item Value Reference Range Interpretation Comments VITAMIN B12 (BEAKER) (test code = 285 pg/mL 213-816 774) FOLATE (BEAKER) (test code = 362) 6.3 ng/mL >=7.0 L [id number] 06:05:00 Test Item Value Reference Range Interpretation Comments CORTISOL, TOTAL (BEAKER) (test code 3.2 ug/dL 3.7-19.4 L = 2755) HIV-1 ANTIGEN WITH HIV-1/2 [id number] 06:04:00 Test Item Value Reference Range Interpretation Comments HIV-1 ANTIGEN WITH HIV 1\\T\\2 Nonreactive Nonreactive ANTIBODY (2) (BEAKER) (test code = 2586) [id number] 06:03:00 Test Item Value Reference Range Interpretation [...] 0-0 (BEAKER) (test code = 413) RETICULOCYTE [id number] 05:08:00 Test Item Value Reference Range Interpretation Comments RETICULOCYTE COUNT PCT (BEAKER) (test 2.9 % 0.5-1.7 H code = 575) POCT-GLUCOSE [id number] 22:01:00 Test Item Value Reference Range Interpretation Comments POC-GLUCOSE METER 132 mg/dL 70-110 H TESTED AT [facility] 6720 (BEAKER) (test code = AUD[place] 1538) [address] HEMOGLOBIN AND [id number] 21:02:00 Test Item Value Reference Range Interpretation Comments HEMOGLOBIN (BEAKER) (test code = 8.1 GM/DL 11.2-15.7 L 410) HEMATOCRIT (BEAKER) (test code = 25.5 % 34.1-44.9 L 411) T4, [id number] 11:38:00 Test Item Value Reference Range Interpretation Comments FREE T4 (BEAKER) (test code = 655) 0.46 ng/dL 0.70-1.48 L TSH/FREE T4 IF [id number] 11:00:00 Test Item Value Reference Range Interpretation Comments THYROID STIMULATING HORMONE 34.88 uIU/mL 0.35-4.94 H (BEAKER) (test code = 772) HEMOGLOBIN AND [id number] 10:21:00 Test Item Value Reference Range Interpretation Comments HEMOGLOBIN (BEAKER) (test code = 8.9 GM/DL 11.2-15.7 L 410) HEMATOCRIT (BEAKER) (test code = 27.3 % 34.1-44.9 L 411) [id number] 05:22:00 Test Item Value Reference Range Interpretation Comments PHOSPHORUS (BEAKER) (test code = 2.9 mg/dL 2.3-4.7 604) [id number] 05:22:00 Test Item Value Reference Range Interpretation Comments MAGNESIUM (BEAKER) (test code = 2.0 mg/dL 1.6-2.6 627) COMPREHENSIVE METABOLIC [id number] 05:22:00 Test Item Value Reference Range Interpretation [...] U/L 29-200 code = 380) LACTIC ACID, [id number] 05:09:00 Test Item Value Reference Range Interpretation [...] 0-0 (BEAKER) (test code = 413) POCT-GLUCOSE [id number] 00:51:00 Test Item Value Reference Range Interpretation Comments POC-GLUCOSE METER 88 mg/dL 70-110 TESTED AT [facility] 67 (BEAKER) (test code = AUDI Pollock [facility] [address] 1538) CHLORIDE, RANDOM [id number] 19:35:00 Test Item Value Reference Range Interpretation Comments CHLORIDE URINE (BEAKER) (test code = 80 meq/L 682) Reference Range: No NormalsCREATININE, RANDOM [id number] 19:35:00 Test Item Value Reference Range Interpretation Comments CREATININE URINE (BEAKER) (test 74.8 mg/dL code = 375) Reference Range: No NormalsSODIUM, RANDOM [id number] 19:35:00 Test Item Value Reference Range Interpretation Comments SODIUM URINE (BEAKER) (test code = 97 meq/L 243) Reference Range: No NormalsURINALYSIS W/ REFLEX URINE [id number] 18:59:00 Test Item Value Reference Range Interpretation [...] 514) SOURCE(BEAKER) (test code = 2795) POCT-GLUCOSE [id number] 18:16:00 Test Item Value Reference Range Interpretation Comments POC-GLUCOSE METER 71 mg/dL 70-110 TESTED AT [facility] 6720 (BEAKER) (test code = AUDI Pollock [facility] [address] 1538) T4, [id number] 18:06:00 Test Item Value Reference Range Interpretation Comments FREE T4 (BEAKER) (test code = 655) < ng/dL 0.70-1.48 L HEPATIC FUNCTION [id number] 17:52:00 Test Item Value Reference Range Interpretation [...] 14 U/L 6-55 347) TSH/FREE T4 IF [id number] 17:49:00 Test Item Value Reference Range Interpretation Comments THYROID STIMULATING HORMONE 125.05 uIU/mL 0.35-4.94 H (BEAKER) (test code = 772) [id number] 16:49:00 Test Item Value Reference Range Interpretation Comments MAGNESIUM (BEAKER) (test code = 1.8 mg/dL 1.6-2.6 627) BASIC METABOLIC [id number] 16:49:00 Test Item Value Reference Range Interpretation [...] S NOT APPLICABLE FOR DIALYSIS PATIEN TS. [id number] 16:41:00 Test Item Value Reference Range Interpretation [...] INR is2.5-3.5 for patients wiht mechanical heart valves.[id number] 16:41:00 Test Item Value Reference Range Interpretation [...] code = 413) RAD, ABDOMEN/KUB, 1 VIEW [id number] 16:14:00Reason for exam:->abdominal distentionShould this be performed [...] Gutierrezeport Verified Date/Time: 06/09/2019 16:14:10 Reading Location: [address] Transitional Reading Room Electronicallysigned by: MOSHE GUTIERREZ M.D. on 06/09/2019 04:14 PM
[2021-10-16 13:28] LABS: Protime INR 1.02
[2021-10-16 13:33] LABS: Absolute Lymphocytes (CBC) 1.7 K/uL (0.7-4.9); Hematocrit 37.9 % (36.0-45.0); Lymphocytes % 17.9 % (15.3-44.8); MPV 7.4 fL (7.6-11.3); RBC Red Blood Cell Count 4.38 M/uL (3.86-4.86)
[2021-10-16 13:44] LABS: ALT/SGPT 18 U/L (12-78); AST/SGOT 21 U/L (15-37); Albumin 3.6 g/dL (3.4-5.0); Alkaline Phosphatase 94 U/L (45-117); BUN Blood Urea Nitrogen 36 mg/dL (7-18); Bicarbonate 21 mmol/L (21-32); Bilirubin Direct < 0.1 mg/dL (0-0.2); Bilirubin Total 0.2 mg/dL (0.2-1.0); Glucose Level 81 mg/dL (74-106); Protein, Total 7.5 g/dL (6.4-8.2); Sodium Level 144 mmol/L (136-145)
[2021-10-16] MEDS ORDERED: NA CHLORIDE 0.9% 1,000 ML ONE (14:05)
--- NOTE | 2021-10-16 14:27 | ER ---
Nurse's Notes [facility] Name: Rhea Carballo Age: 66 yrs Sex: Female : 1955 Arrival Date: 10/16/2021 Time: 12:36 Bed 19 Private MD: Diagnosis: Unspecified kidney failure-INSUFFICENY;Extrapyramidal and movement disorder, unspecified Presentation: 10/16 12:41 Chief complaint: EMS states: Ems called out for poss low blood sugar on a pt that was jh6 stopped walking down the road. Found pt with BS of 65 and poss intoxication. Pt states that she didn't drink or do drugs last night but that she stayed up gambling and is tired. Coronavirus screen: Vaccine status: Patient reports being unvaccinated. Ebola Screen: Patient denies travel to an Ebola-affected area in the 21 days before illness onset. Initial Sepsis Screen: Does the patient meet any 2 criteria? No. Patient's initial sepsis screen is negative. Does the patient have a suspected source of infection? No. Patient's initial sepsis screen is negative. 12:41 Method Of Arrival: EMS: [place] [address] 12:56 Risk Assessment: Do you want to hurt yourself or someone else? Patient reports no [facility] desire to harm self or others. Onset of symptoms was October 15, 2021. 12:56 Acuity: МАРИНА 3 [facility] Triage Assessment: 12:51 General: Appears in no apparent distress. slender, unkempt, Behavior is cooperative, 6 drowsy, restless. Pain: Denies pain. 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 Respiratory: No deficits noted. Reports cough that is non-productive, dry, since 2-3 days. Musculoskeletal: serotonin deficiency and muscle tremors. Historical: - Allergies: 12:50 Iodine; [facility] - Home Meds: 12:50 BuSpar Oral [Active]; levothyroxine oral [Active]; Wellbutrin SR Oral [Active]; 6 lisinopril Oral [Active]; - PMHx: 12:50 chronic back pain; Depression; GI Bleed; Hypothyroidism; SEROTONIN SYNDROME; [facility] - Immunization history:: Client reports having NOT received the Covid vaccine. - Social history:: Smoking status: Patient reports the use of cigarette tobacco products, denies chronic smoking, but will smoke occasionally. Screenin:56 Abuse screen: Denies threats or abuse. Nutritional screening: No deficits noted. [facility] Tuberculosis screening: No symptoms or risk factors identified. Fall Risk Secondary diagnosis (15 points) impaired mobility, IV access (20 points). Gait- Impaired (20 pts.). Assessment: 12:54 General: Appears in no apparent distress. comfortable, slender, unkempt, Behavior is 6 cooperative, drowsy, restless. Pain: Denies pain. Neuro: No deficits noted. Level of Consciousness is obeys commands, lethargic, pt drowsy but will wake up when name called. states that she has been up gambling all night and is tired. states that she has no complaints when asled.. 14:30 Reassessment: No changes from previously documented assessment. Patient and/or family [facility] updated on plan of care and expected duration. Pain level reassessed. Patient is alert, oriented x 3, equal unlabored respirations, skin warm/dry/pink. pt sleeping nad. fluids running; waiting for ua sample. 16:51 General: Appears in no apparent distress. Behavior is cooperative, restless, pt son 6 contacted to pick pt up. pt given full meal tray and taken to lobby via wheelchair. . Pain: Denies pain. Vital Signs: 12:41 BP 131 / 70; Pulse 91; Resp 17; Temp 98.3; Pulse Ox 98% ; Weight 65.77 kg; Height 5 ft. 6 8 in. (172.72 cm); Pain 0/10; 14:30 BP 116 / 54; Pulse 86; Resp 17; Pulse Ox 99% ; 6 16:45 BP 123 / 68; Pulse 90; Resp 20; Pulse Ox 100% ; Pain 0/10; 6 12:41 Body Mass Index 22.05 (65.77 kg, 172.72 cm) [facility] ED Course: 12:36 Patient arrived in ED. ds1 12:39 Jackie Reynaga, [place] is Primary Nurse. 6 12:45 Sarwat Foss MD is Attending Physician. [facility] 12:54 Arm band placed on Patient placed in an exam room, on a stretcher, on pulse oximetry. jh6 12:57 Triage completed. [facility] 12:57 Bed in low position. Call light in reach. Side rails up X 1. [facility] 14:26 Huy Oneill MD is Referral Physician. [place] 16:50 IV discontinued, intact, bleeding controlled, No redness/swelling at site. Pressure [facility] dressing applied. Administered Medications: 14:10 Drug: NS 0.9% 1000 ml Route: IV; Rate: 1 bolus; Site: right forearm; [facility] Outcome: 14:27 Discharge ordered by . [facility] 16:53 Patient left the ED. [facility] Signatures: Sarwat Foss MD MD cha Sanford, Demi ds1 Yvonne Guerra RN RN [facility] Jackie Reynaga RN RN [facility]
--- NOTE | 2021-10-16 14:27 | EDPHYS ---
Physician Documentation [facility] Name: Rhea Carballo Age: 66 yrs Sex: Female : 1955 Arrival Date: 10/16/2021 Time: 12:36 Bed 19 Private MD: ED Physician Sarwat Foss HPI: 10/16 12:59 This 66 yrs old Female presents to ER via EMS with complaints of WEAKNESS. brooke 12:59 POSSIBLE DRUG USE. Onset: The symptoms/episode began/occurred just prior to arrival. bro[place] Severity of symptoms: At their worst the symptoms were mild in the emergency department the symptoms are unchanged. The patient has not experienced similar symptoms in the past. Historical: - Allergies: 12:50 Iodine; jh6 - Home Meds: 12:50 BuSpar Oral [Active]; levothyroxine oral [Active]; Wellbutrin SR Oral [Active]; jh6 lisinopril Oral [Active]; - PMHx: 12:50 chronic back pain; Depression; GI Bleed; Hypothyroidism; SEROTONIN SYNDROME; jh6 - Immunization history:: Client reports having NOT received the Covid vaccine. - Social history:: Smoking status: Patient reports the use of cigarette tobacco products, denies chronic smoking, but will smoke occasionally. ROS: 13:02 Constitutional: Negative for fever, chills, and weight loss, Eyes: Negative for injury, brooke pain, redness, and discharge, ENT: Negative for injury, pain, and discharge, Neck: Negative for injury, pain, and swelling, Cardiovascular: Negative for chest pain, palpitations, and edema, Respiratory: Negative for shortness of breath, cough, wheezing, and pleuritic chest pain, Abdomen/GI: Negative for abdominal pain, nausea, vomiting, diarrhea, and constipation, Back: Negative for injury and pain, : Negative for injury, bleeding, discharge, and swelling, MS/Extremity: Negative for injury and deformity, Skin: Negative for injury, rash, and discoloration, Neuro: Negative for headache, weakness, numbness, tingling, and seizure, Psych: Negative for depression, anxiety, suicide ideation, homicidal ideation, and hallucinations, Allergy/Immunology: Negative for hives, rash, and allergies, Endocrine: Negative for neck swelling, polydipsia, polyuria, polyphagia, and marked weight changes, Hematologic/Lymphatic: Negative for swollen nodes, abnormal bleeding, and unusual bruising. Exam: 13:02 Constitutional: This is a well developed, well nourished patient who is awake, alert, brooke and in no acute distress. Head/Face: Normocephalic, atraumatic. Eyes: Pupils equal round and reactive to light, extra-ocular motions intact. Lids and lashes normal. Conjunctiva and sclera are non-icteric and not injected. Cornea within normal limits. Periorbital areas with no swelling, redness, or edema. ENT: Nares patent. No nasal discharge, no septal abnormalities noted. Tympanic membranes are normal and external auditory canals are clear. Oropharynx with no redness, swelling, or masses, exudates, or evidence of obstruction, uvula midline. Mucous membranes moist. Neck: Trachea midline, no thyromegaly or masses palpated, and no cervical lymphadenopathy. Supple, full range of motion without nuchal rigidity, or vertebral point tenderness. No Meningismus. Chest/axilla: Normal chest wall appearance and motion. Nontender with no deformity. No lesions are appreciated. Cardiovascular: Regular rate and rhythm with a normal S1 and S2. No gallops, murmurs, or rubs. Normal PMI, no JVD. No pulse deficits. Respiratory: Lungs have equal breath sounds bilaterally, clear to auscultation and percussion. No rales, rhonchi or wheezes noted. No increased work of breathing, no retractions or nasal flaring. Abdomen/GI: Soft, non-tender, with normal bowel sounds. No distension or tympany. No guarding or rebound. No evidence of tenderness throughout. Back: No spinal tenderness. No costovertebral tenderness. Full range of motion. Female : Normal external genitalia. Skin: Warm, dry with normal turgor. Normal color with no rashes, no lesions, and no evidence of cellulitis. MS/ Extremity: Pulses equal, no cyanosis. Neurovascular intact. Full, normal range of motion. Psych: Awake, alert, with orientation to person, place and time. Behavior, mood, and affect are within normal limits. 13:02 Neuro: Orientation: is normal, appropriate for stated age, no acute changes, Mentation: is normal, appropriate for stated age, no acute changes, Motor: MOVEMENT DISORDER. 14:27 ECG was reviewed by the Attending Physician. [facility] Vital Signs: 12:41 BP 131 / 70; Pulse 91; Resp 17; Temp 98.3; Pulse Ox 98% ; Weight 65.77 kg; Height 5 ft. 6 8 in. (172.72 cm); Pain 0/10; 14:30 BP 116 / 54; Pulse 86; Resp 17; Pulse Ox 99% ; 6 16:45 BP 123 / 68; Pulse 90; Resp 20; Pulse Ox 100% ; Pain 0/10; 6 12:41 Body Mass Index 22.05 (65.77 kg, 172.72 cm) [facility] MDM: 12:45 Patient medically screened. [facility] 14:19 Differential Diagnosis altered mental status. Data reviewed: vital signs, nurses notes, [facility] lab test result(s), EKG, radiologic studies. 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 Test interpretation: by ED physician or midlevel provider: ECG. Counseling: I had a detailed discussion with the patient and/or guardian regarding: the historical points, exam findings, and any diagnostic results supporting the discharge/admit diagnosis, lab results, radiology results, the need for outpatient follow up, for definitive care, a family practitioner, a psychiatrist. 10/16 12:47 Order name: Acetaminophen; Complete Time: 14:15 [facility] 10/16 12:47 Order name: Basic Metabolic Panel; Complete Time: 14:15 [facility] 10/16 12:47 Order name: CBC with Diff; Complete Time: 14:15 [facility] 10/16 12:47 Order name: ETOH Level; Complete Time: 14:15 [facility] 10/16 12:47 Order name: Hepatic Function; Complete Time: 14:15 [facility] 10/16 12:47 Order name: PT-INR; Complete Time: 14:15 [facility] 10/16 12:47 Order name: Ptt, Activated; Complete Time: 14:15 [facility] 10/16 12:47 Order name: Salicylate; Complete Time: 14:15 [facility] 10/16 12:47 Order name: Urine Drug Screen [facility] 10/16 12:47 Order name: EKG; Complete Time: 12:48 [facility] 10/16 12:49 Order name: Glucose, Ancillary Testing; Complete Time: 14:15 [facility] 10/16 16:02 Order name: Urine Dipstick-Ancillary [facility] 10/16 12:47 Order name: EKG - Nurse/Tech; Complete Time: 12:57 [facility] 10/16 12:47 Order name: IV Saline Lock; Complete Time: 12:57 [facility] 10/16 12:47 Order name: Labs collected and sent; Complete Time: 12:57 [facility] 10/16 12:47 Order name: Suicide Screening ([place]); Complete Time: 12:58 [facility] 10/16 12:47 Order name: Urine Dipstick-Ancillary (obtain specimen) [facility] 10/16 12:47 Order name: Diet Regular; Complete Time: 12:48 [facility] EC:27 Rate is 106 beats/min. Rhythm is regular. QRS [place] is Normal. [place] interval is normal. [place] QRS interval is normal. QT interval is normal. No Q waves. T waves are Normal. No ST changes noted. Clinical impression: Sinus tachycardia and No evidence of ischemia. Interpreted by me. Reviewed by me. Administered Medications: 14:10 Drug: NS 0.9% 1000 ml Route: IV; Rate: 1 bolus; Site: right forearm; 6 Disposition Summary: 10/16/21 14:27 Discharge Ordered Location: Home bro[place] Problem: new brooke Symptoms: have improved brooke Condition: Stable brooke Diagnosis - Unspecified kidney failure - INSUFFICENY brooke - Extrapyramidal and movement disorder, unspecified brooke Followup: brooke - With: Private Physician - When: 2 - 3 days - Reason: Recheck today's complaints, Continuance of care, Re-evaluation by your physician Followup: brooke - With: - When: 2 - 3 days - Reason: Recheck today's complaints, Re-evaluation by your physician Discharge Instructions: - Discharge Summary Sheet brooke - Dystonic Reaction brooke - Dystonia brooke - Chronic Kidney Disease, Adult, [id number] brooke Forms: - Medication Reconciliation Form brooke - Thank You Letter brooke - Antibiotic Education brooke - Prescription Opioid Use brooke Signatures: Dispatcher [employer] Sarwat Crowe MD MD cha Hastedt, Jennifer RN RN jh6
[2021-10-16 16:02] LABS: Urine Blood 1+ (Negative); Urine Glucose Negative (Negative); Urine Protein Negative (Negative); Urine Specific Gravity >=1.030 (1.005-1.030)
[2021-10-16 16:28] LABS: Barbiturates NEGATIVE (NEGATIVE); Benzodiazepines NEGATIVE (NEGATIVE); Cocaine NEGATIVE (NEGATIVE); METHAMPHETAM POSITIVE (NEGATIVE); Methadone NEGATIVE (NEGATIVE); Opiates NEGATIVE (NEGATIVE); Phencyclidine NEGATIVE (NEGATIVE); THC Cannibis NEGATIVE (NEGATIVE)
[2021-10-16 16:58] VITALS: BP 131/70; TEMP 98.3; O2SAT 98
== END 2021-10-16 16:53 | disposition home or self-care (01) ==
LOC: ER 12:31
DX: N19 Unspecified kidney failure (principal); G25.9 Extrapyramidal and movement disorder, unspecified; E03.9 Hypothyroidism, unspecified; F32.A Depression, unspecified; F17.210 Nicotine dependence, cigarettes, uncomplicated; Z91.048 Other nonmedicinal substance allergy status
CPT/HCPCS: 36415; 80048; 80076; 80307; 80320; 80329; 81003; 82947; 85025; 85610; 85730; 93005; 99283; J7030

== ENCOUNTER 2022-01-25 09:29 | Emergency (ER) | payer SELFPAY ==
--- OUTSIDE RECORDS SUMMARY | 2022-01-25 09:34 | XMS REPORT | Continuity of Care Document ---
:1955 Author Organization [facility] t Address [address] [place] [address] Care Team Providers Name Role Phone Eulogio Mcknight MD Primary Care Physician PAUL SANTOS Attending Clinician Unavailable Jaleel SORENSEN Attending Clinician BOB Attending Clinician Unavailable Kathleen Araiza DO Attending Clinician Bob EPSTEIN Attending Clinician Team, Health Maintenance Attending Clinician Unavailable EULOGIO MCKNIGHT Attending Clinician Unavailable Eulogio Mcknight MD Attending Clinician CARLOS Attending Clinician Unavailable BONIFACIO Attending Clinician Unavailable PARADISE GRIFFITHS Attending Clinician Unavailable PAUL SANTOS Admitting Clinician Unavailable BOB Admitting Clinician Unavailable Bob EPSTEIN Admitting Clinician GRACE KIM Admitting Clinician Unavailable CARLOS Admitting Clinician Unavailable SHERLY Admitting Clinician Unavailable PARADISE GRIFFITHS Admitting Clinician Unavailable Payers Payer Name Policy Type Policy Number Effective Date Expiration Date S ource Problems Condition Condition Condition Status Onset Resolution Last Treating Co mments Source Name Details Category Date Date Treatment Clinician Date Altered Altered Disease Active NPI:183 mental mental 4-26 [id number] status status 00:00: 00 No known No known Disease NPI:1 83 active active [id number] problems problems Allergies, Adverse Reactions, Alerts Allergy Allergy Status Severity Reaction(s) Onset Inactive Treating Comm ents Source Name Type Date Date Clinician NO KNOWN Drug Active NPI:183 ALLERGIE Class [id number] S NO KNOWN Allergy Active [facility] ALLERGIE S Social History Social Habit Start Date Stop Date Quantity Comments Source History [facility] NPI:[id number] Alcohol Std Drinks History [facility] NPI:[id number] Alcohol Binge History [facility] NPI:[id number] Alcohol Comment Exposure to 2022-01-02 2022-01-12 Not sure NPI:[id number] SARS-CoV-2 (event) 00:00:00 06:54:00 Tobacco use and 2022-01-11 2022-01-11 Never used NPI:[id number] exposure 00:00:00 00:00:00 Alcohol intake 2022-01-11 2022-01-11 Lifetime NPI:[id number] 00:00:00 00:00:00 non-drinker (finding) Cigarettes smoked 2022-01-11 2022-01-11 NPI:135 [id number] current (pack per 00:00:00 00:00:00 day) - Reported History [facility] 2021-05-07 2021-05-07 1 NPI:[id number] Alcohol Frequency 00:00:00 00:00:00 [birth year] NPI:[id number] 00:00:00 00:00:00 Smoking Status Start Date Stop Date Source Current every day smoker 2022-01-11 00:00:00 NPI :[id number] Never smoker Medications Ordered Filled Start Stop Current Ordering Indication Dosage Frequency Signature Comments Components Source Medication Medication Date Date Medication? Clinician (SIG) Name Name levoFLOXaci No 500mg 500 mg, N PI:183 n 01-12 Oral, [id number] (LEVAQUIN) 18:15: 19:07 ONCE, 1 tablet 500 00 :00 dose, On mg Mon01/12/22 at 1315, MICAELA
Re ason for Anti-Infec tive: Documented Infection< br>Documen bhavana Infection Site: Urine
D uration of Therapy: Other (see Comments)< br>Restric bhavana use approved by: ADC PROVIDER aspirin 2021- Yes 81mg 81 mg, NPI:183 chewable 01-12 Oral, [id number] tablet 81 14:00: DAILY, mg 00 First dose on Mon01/12/22 at 0900, Until Discontinu ed, Routine lisinopriL Yes 20mg 20 mg, NPI:1 83 (PRINIVIL,Z 01-12 Oral, [id number] ESTRIL) 14:00: DAILY, tablet 20 00 First dose mg on Mon01/12/22 at 0900, Until Discontinu ed, Routine buPROPion Yes 150mg 150 mg, NPI: 183 XL 01-12 Oral, [id number] (WELLBUTRIN 14:00: DAILY, XL) tablet 00 First dose 150 mg on Mon01/12/22 at 0900, Until Discontinu ed, Routine levothyroxi Yes 150ug 150 mcg, N PI:183 ne 01-12 Oral, [id number] (SYNTHROID) 11:00: QAM-0600, tablet 150 00 First dose mcg on Mon01/12/22 at 0600, Until Discontinu ed, Routine heparin Yes 5000U 5,000 NPI:183 (porcine) 01-12 Units, [id number] injection 03:00: Subcutaneo 5,000 Units 00 us, Q8H, First dose on Mon01/11/22 at 2200, Until Discontinu ed, Routine busPIRone Yes 5mg 5 mg, NPI:183 (BUSPAR) 01-12 Oral, BID, 89943 81 tablet 5 mg 01:00: First dose 00 on Mon01/11/22 at 2000, Until Discontinu ed, Routine levoFLOXaci 2021-0 2021- Yes [id number] 250mg Take 0.5 NPI:183 n 500 mg 01-12108 [place] [address] tablet 00:00: 04:59 mouth 00 :00 every 24 (twenty-fo ur) hours for 2 days. levoFLOXaci 2021-0 2021- Yes [id number] 250mg Take 0.5 NPI:183 n 500 mg 01-12108 [place] 62286 tablet 00:00: 04:59 mouth 00 :00 every 24 (twenty-fo ur) hours for 2 days. cefTRIAXone 2021- No 1000mg 1,000 mg, NPI:183 (ROCEPHIN) 01-11 IV [id number] 1,000 mg in 23:00: 17:12 Piggyback, NaCl 0.9% 00 :13 Q24H ABX, (NS) 50 mL First dose MINI-BAG on Mon01/11/22 at 1800, Until Discontinu ed, Administer over 30 Minutes, 50 mL
Reas on for Anti-Infec tive: Empiric Therapy for Suspected Infection< br>Empiric Therapy Site: Urine
D uration of therapy: 7 days NaCl 0.9% Yes 1000mL at 125 NPI: 183 (NS) IV 4-26 mL/hr, IV [id number] infusion 21:30: Infusion, 1,000 mL 00 CONTINUOUS , Starting on Mon01/11/22 at 1630, Until Discontinu ed, Routine nitroglycer Yes .4mg 0.4 mg, NPI :183 in 01-11 Sublingual [id number] (NITROSTAT) 21:18: , Q5MIN sublingual 13 PRN, tablet 0.4 Starting mg on Mon01/11/22 at 1618, Until Discontinu ed, Routine, Chest pain ondansetron Yes 4mg 4 mg, Slow NPI:183 (ZOFRAN 01-11 IV Push, [id number] (PF)) 21:17: Q6HPRN, injection 4 49 Starting mg on Mon01/11/22 at 1617, Until Discontinu ed, Routine, Nausea and Vomiting (N/V) traMADoL 2021- Yes 50mg 50 mg, NPI:18 3 (ULTRAM) 01-11 Oral, [id number] tablet 50 21:17: 21:16 Q8HPRN, mg 40 :40 Starting on Mon01/11/22 at 1617, Until Svitlana 01/13/22 at 1616, Routine, Pain (scale 4-6) acetaminoph Yes 650mg 650 mg, COFFEE HOST I:183 en 01-11 Oral, [id number] (TYLENOL) 21:17: Q6HPRN, tablet 650 35 Starting mg on Mon01/11/22 at 1617, Until Discontinu ed, Routine, Pain (scale 1-3) LORazepam Yes .5mg 0.5 mg, NPI:1 83 (ATIVAN) 01-11 Slow IV [id number] injection 21:15: Push, 0.5 mg 07 BIDPRN, 2 doses, Starting on Mon01/11/22 at 1615, Until Discontinu ed, Routine, Anxiety, Agitation NaCl 0.9% 2021- No 1000mL at 999 NPI :183 (NS) bolus 01-11 04-26 mL/hr, [id number] 1 infusion 15:45: 16:45 1,000 mL, 1,000 mL 00 :00 IV Piggyback, ONCE, 1 dose, On Mon01/11/22 at 1045, STAT NaCl 0.9% 2021- No 1000mL at 999 NPI :183 (NS) bolus 01-11-26 mL/hr, [id number] 1 infusion 13:45: 13:40 1,000 mL, 1,000 mL 00 :00 IV Piggyback, ONCE, 1 dose, On Mon01/11/22 at 0845, STAT levothyroxi 2020-09 Yes [id number] 150ug Take 1 NPI:183 ne 150 mcg 1-29 tablet by [id number] tablet 00:00: mouth 00 every morning. busPIRone 2020-09 Yes [id number] 5mg Take 1 NPI:183 mg tablet 1-[place] [id number] 81 00:00: mouth 2 00 (two) times daily. buPROPion 2020-09 Yes [id number] 150mg Take 1 NPI:183 XL 1-29 tablet by [id number] (WELLBUTRIN 00:00: mouth XL) 150 mg 00 daily. 24 hr tablet lisinopriL 2020-09 Yes [id number] 20mg Take 1 N PI:183 20 mg 1-29 tablet by [id number] tablet 00:00: mouth 00 daily. levothyroxi 2020-09 Yes [id number] 150ug Take 1 NPI:183 ne 150 mcg 1-29 tablet by [id number] tablet 00:00: mouth 00 every morning. busPIRone 2020-09 Yes [id number] 5mg Take 1 NPI:183 mg tablet 1-29 [place] [id number] 81 00:00: mouth 2 00 (two) times daily. buPROPion 2020-09 Yes [id number] 150mg Take 1 NPI:183 XL 1-29 tablet by [id number] (WELLBUTRIN 00:00: mouth XL) 150 mg 00 daily. 24 hr tablet lisinopriL 2020-09 Yes [id number] 20mg Take 1 N PI:183 20 mg 1-29 tablet by [id number] tablet 00:00: mouth 00 daily. levothyroxi 2020-09 Yes [id number] 150ug Take 1 NPI:183 ne 150 mcg 1-29 tablet by [id number] 781 tablet 00:00: mouth 00 every morning. busPIRone 5 2020-09 Yes [id number] 5mg Take 1 NPI:183 mg tablet 1-[place] 92259 81 00:00: mouth 2 00 (two) times daily. buPROPion 2020-09 Yes [id number] 150mg Take 1 NPI:183 XL 1-29 tablet by [id number] (WELLBUTRIN 00:00: mouth XL) 150 mg 00 daily. 24 hr tablet lisinopriL 2020-09 Yes [id number] 20mg Take 1 N PI:183 20 mg 1-29 tablet by [id number] tablet 00:00: mouth 00 daily. levothyroxi 2020-09 Yes [id number] 150ug Take 1 NPI:183 ne 150 mcg 1-29 tablet by 1318 781 tablet 00:00: mouth 00 every morning. busPIRone 5 2020-09 Yes [id number] 5mg Take 1 NPI:183 mg tablet 1-[place] [id number] 81 00:00: mouth 2 00 (two) times daily. buPROPion 2020-09 Yes [id number] 150mg Take 1 NPI:183 XL 1-29 tablet by [id number] (WELLBUTRIN 00:00: mouth XL) 150 mg 00 daily. 24 hr tablet lisinopriL 2020-09 Yes [id number] 20mg Take 1 N PI:183 20 mg 1-29 tablet by [id number] tablet 00:00: mouth 00 daily. levothyroxi 2020-09 Yes [id number] 150ug Take 1 NPI:183 ne 150 mcg 1-29 tablet by 1318 781 tablet 00:00: mouth 00 every morning. busPIRone 5 2020-09 Yes [id number] 5mg Take 1 NPI:183 mg tablet 1-[place] [id number] 81 00:00: mouth 2 00 (two) times daily. buPROPion 2020-09 Yes [id number] 150mg Take 1 NPI:183 XL -29 tablet by [id number] (WELLBUTRIN 00:00: mouth XL) 150 mg 00 daily. 24 hr tablet lisinopriL 2020-09 Yes [id number] 20mg Take 1 N PI:183 20 mg 1-29 tablet by [id number] tablet 00:00: mouth 00 daily. levothyroxi 2020- No [id number] 150ug Take 1 NPI:183 ne 150 mcg 808-16 tablet by 131 8781 tablet 00:00: 00:00 mouth 00 :00 every morning. buPROPion 2020- No [id number] 150mg Take 1 NPI:183 XL 8-08-16 tablet by [id number] (WELLBUTRIN 00:00: 00:00 mouth XL) 150 mg 00 :00 daily. 24 hr tablet busPIRone 5 2020- No [id number] 5mg Take 1 NPI:183 mg tablet 05-07 tablet by 1318 781 00:00: 00:00 mouth 2 00 :00 (two) times daily. levothyroxi 2020- No [id number] 150ug Take 1 NPI:183 ne 150 mcg 05-07 tablet by 131 8781 tablet 00:00: 00:00 mouth 00 :00 every morning. buPROPion 2020- No [id number] 150mg Take 1 NPI:183 XL 8-08-16 tablet by [id number] (WELLBUTRIN 00:00: 00:00 mouth XL) 150 mg 00 :00 daily. 24 hr tablet busPIRone 5 2020- No [id number] 5mg Take 1 NPI:183 mg tablet 808-16 tablet by 1318 [id number] 00:00: 00:00 mouth 2 00 :00 (two) times daily. Vital Signs Vital Name Observation Time Observation Value Comments Source Systolic blood pressure 2022-01-12 16:15:00 160 mm[Hg] Diastolic blood 2022-01-12 16:15:00 86 mm[Hg] NPI:1 [id number] pressure Heart rate 2022-01-12 16:15:00 74 /min NPI:1831 [id number] Body temperature 2022-01-12 16:15:00 36.44 Becki Respiratory rate 2022-01-12 16:15:00 13 /min Oxygen saturation in 2022-01-12 16:15:00 94 /min Arterial blood by Pulse oximetry Body height 2022-01-11 18:50:00 171.5 cm NPI:1831 [id number] Body weight 2022-01-11 18:50:00 59.966 kg NPI:1831 [id number] BMI 2022-01-11 18:50:00 20.40 kg/m2 NPI:1831 [id number] Systolic blood pressure 2021-08-16 22:21:00 194 mm[Hg] Diastolic blood 2021-08-16 22:21:00 91 mm[Hg] NPI:1 [id number] pressure Heart rate 2021-08-16 22:20:00 66 /min NPI:1831 [id number] Body height 2021-08-16 22:20:00 167.6 cm NPI:1831 [id number] Body weight 2021-08-16 22:20:00 64.411 kg NPI:1831 [id number] BMI 2021-08-16 22:20:00 22.92 kg/m2 NPI:1831 [id number] Procedures Procedure Date / Time Performed Performing Clinician [facility] e BASIC METABOLIC PANEL (NA, 2022-01-12 09:10:00 Claire Mejia PI:[id number] K, CL, CO2, GLUCOSE, BUN, CREATININE, CA) TROPONIN I 2022-01-12 05:50:00 Claire Mejia NPI:[id number] HB ECG ROUTINE & RHYTHM 2022-01-11 23:43:48 Claire Mejia STRIP CREATININE, URINE RANDOM 2022-01-11 22:16:00 Claire Mejia NPI :[id number] SODIUM, URINE RANDOM 2022-01-11 22:16:00 Claire Mejia NPI:152 [id number] CREATINE KINASE 2022-01-11 21:35:00 Claire Mejia NPI:[id number] TROPONIN I 2022-01-11 21:35:00 Claire Mejia NPI:[id number] THYROID STIMULATING HORMONE 2022-01-11 21:35:00 Claire Mejia ACUTE CARE ARTERIAL BLOOD 2022-01-11 19:25:00 Claire Mejia COFFEE HOST I:[id number] GAS CT THORAX WO CONTRAST 2022-01-11 18:02:17 Julio Boston NPI:18 [id number] XR CHEST 1 VW 2022-01-11 17:20:00 Julio Boston NPI:[id number] TROPONIN I 2022-01-11 13:50:00 Claire Mejia NPI:[id number] BASIC METABOLIC PANEL (NA, 2022-01-11 13:50:00 Julio Boston PI:[id number] K, CL, CO2, GLUCOSE, BUN, CREATININE, CA) CT HEAD WO CONTRAST 2022-01-11 07:42:35 Brunilda Araiza NPI:1 [id number] COMP. METABOLIC PANEL 2022-01-11 07:24:00 Brunilda Araiza NPI :[id number] ([id number]) ETHANOL 2022-01-11 07:24:00 Brunilda Araiza NPI:[id number] CBC WITH DIFF 2022-01-11 07:24:00 Brunilda Araiza NPI:[id number] URINE DRUG (IMMUNOASSAY) - 2022-01-11 07:24:00 Brunilda Araiza COMPREHENSIVE DRUG SCREEN W/O REFLEX URINALYSIS 2022-01-11 07:23:00 Brunilda Araiza NPI:[id number] Encounters Start End Encounter Admission Attending Care Care Encounter Source Date/Time Date/Time Type Type Clinicians Facility Department ID 2021-06-23 Inpatient ER RISHABH SANTOS G[facility] [id number] [facility] 01:38:07 KATIANA 2022-01-13 2022-01-13 Transition EMMANUEL Marmolejo 1.2.840.114 [id number] NPI:183 00:00:00 00:00:00 of Care Haylie MAURO 350.1.13.10 [id number] [place] 4.2.7.2.686 [id number] 2022-01-11 2022-01-12 Inpatient X [facility] [id number] NPI:183 02:24:00 14:45:00 CLAIRE [id number] 1 2022-01-11 2022-01-12 Hospital Jose G Brunilda Kathleen [facility] 1.2.84 0.114 [id number] NPI:183 02:24:00 14:45:00 Encounter Claire Mejia [facility] 350.1.13.10 [id number] [place] 4.2.7.2.686 MABEL [id number] 2021-09-08 2021-09-08 Telephone Team, [facility] KULWINDER 1.2.840.114 [id number] NPI:183 00:00:00 00:00:00 Health [place] [address].1.13.[id number] [facility] 4.2.7.2.686 [id number] 2021-08-16 2021-08-16 [facility] [id number] NPI:183 16:15:00 16:34:05 BRANDON [id number] 1 2021-08-16 2021-08-16 Office [facility] 1.2.840.114 [id number] NPI:183 16:13:41 16:28:41 Visit [facility] 350.1.13.10 [id number] Eulogio QUINTERO 4.2.7.2.686 NATE?BLEA [id number] EY 044 MEDICAL OFFICE BUILDING 2019-11-13 2019-11-13 Emergency [facility] [id number] NPI:183 12:50:48 15:36:00 [place] [id number] 1 Results Test Description Test Time Test Comments Results Result Comments Source BASIC METABOLIC PANEL (NA, K, CL, CO2, GLUCOSE, BUN, 2021-12 11:05:24 CREATININE, CA) Test Item Value Reference Range Interpretation Comme nts NA (test code = 5709837945) 142 mmol/L 135-145 K (test code = 0315076452) 4.2 mmol/L 3.5-5.0 CL (test code = 6653709069) 118 mmol/L 98-108 H CO2 TOTAL (test code = 9711196795) 18 mmol/L 23-31 L AGAP (test code = 0504671080) 2-16 BUN (test code = 9884073232) 26 mg/dL 7-23 H GLUCOSE (test code = 1215634753) 83 mg/dL 70-110 CREATININE (test code = 1.45 mg/dL 0.50-1.04 H 6582446835) CALCIUM (test code = 0931015820) 8.6 mg/dL 8.6-10.6 eGFR (test code = 6313764332) mL/min/1.73m2 FABIO (test code = FABIO) Association of Glomerular Filtration Rate (GFR) and Staging of Kidney Disease* + +-------- + ------+| GFR (mL/min/1.73 m2) ?| With Kidney Damage ?| ?Without Kidney Damage+ +-- + +| ?>90 ?| ?Stage one ?| ? Normal ?+ +------- + -------+| ?60-89 ?| ?Stage two ?| ? Decreased GFR ? + +-------- + ------+| ?30-59 ?| ?Stage three ?| ? Stage three ? + +-------- + ------+| ?15-29 ?| ?Stage four ? | ? Stage four ?+ +------- + -------+| ?<15 (or dialysis) ? ?| ?Stage five ? | ? Stage five ?+ +------- + -------+ *Each stage assumes the associated GFR level has been in effect for at least three months. ?Stages 1 to 5, with or without kidney disease, indicate chronic kidney disease. Notes: Determination of stages one and two (with eGFR >59mL/min/1.73 m2) requires estimation of kidney damage for at least three months as defined by structural or functional abnormalities of the kidney, manifested by either:Pathological abnormalities or Markers of kidney damage (including abnormalities in the composition of the blood or urine or abnormalities in imaging tests). Lab Interpretation (test code = Abnormal 08393-8) NPI:[id number] [id number] 06:31:49 Test Item Value Reference Interpretation Comments Range TROPONIN I (test 0.004 ng/mL See_Comment [Automated code = 1896417268) message] The system which generated this result transmitted reference range : <=0.034. The reference range was not used to interpret this result as normal/abnormal . FABIO (test code = Reference (Normal) FABIO) Range (defined by the 99th percentile reference limit): <= 0.034 ng/mL Note: Cardiac troponin begins to rise 3-4 hours after the onset of ischemia. Repeat in 4-6 hours if the sample was drawn within 3-4 hours of the onset of the symptom and found normal. Diagnosis of myocardial injury is made with acute changes in cTn concentrations with at least one serial sample above the 99th percentile upper reference limit (URL), taken together with the patient's clinical presentation. Biotin has been reported to cause a negative bias, interpret results relative to patient's use of biotin. Lab Interpretation Normal (test code = 66019-7) NPI:[id number] STIMULATING [id number] 23:50:35 Test Item Value Reference Range Interpretation Comments TSH (test code = See_Comment [Automated message] 7278205653) The system Kopi generated this result transmitted ref erence range: 0.45 - 4 .70 mIU/L. The refe rence range was not u sed to interpret this result as normal/abnor mal. Lab Interpretation (test Normal code = 42275-7) NPI:[id number] [id number] 23:32:05 Test Item Value Reference Interpretation Comments Range TROPONIN I (test 0.006 ng/mL See_Comment [Automated code = 2763168498) message] The system which generated this result transmitted reference range : <=0.034. The reference range was not used to interpret this result as normal/abnormal . FABIO (test code = Reference (Normal) FABIO) Range (defined by the 99th percentile reference limit): <= 0.034 ng/mL Note: Cardiac troponin begins to rise 3-4 hours after the onset of ischemia. Repeat in 4-6 hours if the sample was drawn within 3-4 hours of the onset of the symptom and found normal. Diagnosis of myocardial injury is made with acute changes in cTn concentrations with at least one serial sample above the 99th percentile upper reference limit (URL), taken together with the patient's clinical presentation. Biotin has been reported to cause a negative bias, interpret results relative to patient's use of biotin. Lab Interpretation Normal (test code = 99058-4) NPI:[id number] [id number] 23:18:23 Test Item Value Reference Range Interpretation Comments CK (test code = 1002307068) 186 U/L 33-194 Lab Interpretation (test code = Normal 91494-1) NPI:[id number] [id number] 22:26:51 Test Item Value Reference Interpretation Comments Range TROPONIN I (test 0.006 ng/mL See_Comment [Automated code = 4950021673) message] The system which generated this result transmitted reference range : <=0.034. The reference range was not used to interpret this result as normal/abnormal . FABIO (test code = Reference (Normal) FABIO) Range (defined by the 99th percentile reference limit): <= 0.034 ng/mL Note: Cardiac troponin begins to rise 3-4 hours after the onset of ischemia. Repeat in 4-6 hours if the sample was drawn within 3-4 hours of the onset of the symptom and found normal. Diagnosis of myocardial injury is made with acute changes in cTn concentrations with at least one serial sample above the 99th percentile upper reference limit (URL), taken together with the patient's clinical presentation. Biotin has been reported to cause a negative bias, interpret results relative to patient's use of biotin. Lab Interpretation Normal (test code = 02709-1) NPI:[id number] Care Arterial Blood Gas.2022-01-11 19:28:36 Test Item Value Reference Range Interpretation Comments PH (test code = 2) 7.35-7.45 L PCO2 (test code = See_Comment L [Automat ed message] 9310668131) The system Kopi generated this result transmitted ref erence range: 35 - 45 mmHg. The reference r srikanth was not used to interpret this result as normal/abnor mal. PO2 (test code = See_Comment [Automated message] 0080660019) The system Kopi generated this result transmitted ref erence range: 80 - 100 mmHg. The reference r srikanth was not used to interpret this result as normal/abnor mal. HCO3 (test code = See_Comment L [Automate d message] 0278213536) The system Kopi generated this result transmitted ref erence range: 22 - 26 mEq/L. The reference r srikanth was not used to interpret this result as normal/abnor mal. BE (test code = See_Comment L [Automated message] 5195410469) The system Kopi generated this result transmitted ref erence range: -3.0 - 3 .0 mEq/L. The refe rence range was not u sed to interpret this result as normal/abnor mal. Lab Interpretation (test Abnormal code = 57965-3) NPI:[id number] METABOLIC PANEL (NA, K, CL, CO2, GLUCOSE, BUN, CREATININE, CA)2022-01-11 14:09:53 Test Item Value Reference Range Interpretation Comments NA (test code = 143 mmol/L 135-145 3834158355) K (test code = 3.7 mmol/L 3.5-5.0 6453615266) CL (test code = 115 mmol/L 98-108 H 1546755896) CO2 TOTAL (test code = 20 mmol/L 23-31 L 9915290559) AGAP (test code = 2-16 6132641517) BUN (test code = 47 mg/dL 7-23 H 2111098666) GLUCOSE (test code = 90 mg/dL 70-110 4367203618) CREATININE (test code = 1.98 mg/dL 0.50-1.04 H 3060963732) CALCIUM (test code = 8.2 mg/dL 8.6-10.6 L 6072001140) eGFR (test code = mL/min/1.73m2 0915404634) FABIO (test code = FABIO) Association of Glomerular Filtration Rate (GFR) and Staging of Kidney Disease* + --+ --+ ------+| GFR (mL/min/1.73 m2) ?| With Kidney Damage ?| ?Without Kidney Damage+ --------+ --------+ +| ?>90 ?| ?Stage one ?| ? Normal ?+ ---+ ---+ -------+| ?60-89 ?| ?Stage two ?| ? Decreased GFR ? + --+ --+ ------+| ?30-59 ?| ?Stage three ?| ? Stage three ? + --+ --+ ------+| ?15-29 ?| ?Stage four ? | ? Stage four ?+ ---+ ---+ -------+| ?<15 (or dialysis) ? ?| ?Stage five ? | ? Stage five ?+ ---+ ---+ -------+ *Each stage assumes the associated GFR level has been in effect for at least three months. ?Stages 1 to 5, with or without kidney disease, indicate chronic kidney disease. Notes: Determination of stages one and two (with eGFR >59mL/min/1.73 m2) requires estimation of kidney damage for at least three months as defined by structural or functional abnormalities of the kidney, manifested by either:Pathological abnormalities or Markers of kidney damage (including abnormalities in the composition of the blood or urine or abnormalities in imaging tests). Lab Interpretation Abnormal (test code = 01781-6) NPI:[id number] 07:52:59 Test Item Value Reference Range Interpretation Comments ALCOHOL (test code = <10 mg/dL 4977678157) FABIO (test code = FABIO) <10 Ikkiauik32-419 Toxic>100 Depression of BANK[employer]OR[employer]>400 Fatalities Reported NPI:[id number]. METABOLIC PANEL (79379)2022-01-11 07:45:57 Test Item Value Reference Range Interpretation Comments NA (test code = 140 mmol/L 135-145 2983036056) K (test code = 3.6 mmol/L 3.5-5.0 7939900604) CL (test code = 108 mmol/L 98-108 1258329493) CO2 TOTAL (test code = 20 mmol/L 23-31 L 9365762183) AGAP (test code = 2-16 3319326904) BUN (test code = 57 mg/dL 7-23 H 5730994405) GLUCOSE (test code = 106 mg/dL 70-110 1871459096) CREATININE (test code = 3.04 mg/dL 0.50-1.04 H 4589031423) TOTAL BILI (test code = 0.4 mg/dL 0.1-1.8 0357636375) CALCIUM (test code = 9.9 mg/dL 8.6-10.6 7128983361) T PROTEIN (test code = 6.9 g/dL 6.3-8.2 7941076998) ALBUMIN (test code = 4.3 g/dL 3.5-5.0 2349362366) ALK PHOS (test code = 104 U/L 34-122 3111701379) ALTv (test code = 18 U/L 5-35 1742-6) AST(SGOT) (test code = 34 U/L 13-40 9434144381) eGFR (test code = mL/min/1.73m2 7724506638) FABIO (test code = FABIO) Association of Glomerular Filtration Rate (GFR) and Staging of Kidney Disease* + --+ --+ ------+| GFR (mL/min/1.73 m2) ?| With Kidney Damage ?| ?Without Kidney Damage+ --------+ --------+ +| ?>90 ?| ?Stage one ?| ? Normal ?+ ---+ ---+ -------+| ?60-89 ?| ?Stage two ?| ? Decreased GFR ? + --+ --+ ------+| ?30-59 ?| ?Stage three ?| ? Stage three ? + --+ --+ ------+| ?15-29 ?| ?Stage four ? | ? Stage four ?+ ---+ ---+ -------+| ?<15 (or dialysis) ? ?| ?Stage five ? | ? Stage five ?+ ---+ ---+ -------+ *Each stage assumes the associated GFR level has been in effect for at least three months. ?Stages 1 to 5, with or without kidney disease, indicate chronic kidney disease. Notes: Determination of stages one and two (with eGFR >59mL/min/1.73 m2) requires estimation of kidney damage for at least three months as defined by structural or functional abnormalities of the kidney, manifested by either:Pathological abnormalities or Markers of kidney damage (including abnormalities in the composition of the blood or urine or abnormalities in imaging tests). Lab Interpretation Abnormal (test code = 10042-4) NPI:[id number] WITH [id number] 07:32:34 Test Item Value Reference Range Interpretation Comments WBC (test code = See_Comment H [Automated 2890-2) message] The sy stem which generated this result transmitted reference range : 4.30 - 11.10 10*3/?L. The reference range was not used to interpret this result as normal/abnormal . RBC (test code = See_Comment [Automated 789-8) message] The sy stem which generated this result transmitted reference range : 3.93 - 5.25 10*6/?L. The reference range was not used to interpret this result as normal/abnormal . HGB (test code = 12.4 g/dL 11.6-15.0 718-7) HCT (test code = 36.6 % 35.7-45.2 4544-3) MCV (test code = 85.1 fL 80.6-95.5 787-2) MCH (test code = 28.8 pg 25.9-32.8 785-6) MCHC (test code = 33.9 g/dL 31.6-35.1 786-4) RDW-SD (test code = 45.0 fL 39.0-49.9 12817-5) RDW-CV (test code = 14.6 % 12.0-15.5 788-0) PLT (test code = See_Comment [Automated 777-3) message] The sy stem which generated this result transmitted reference range : 166 - 358 10*3/ ?L. The reference r srikanth was not used to interpret this result as normal/abnormal . MPV (test code = 8.8 fL 9.5-12.9 L 63572-8) NRBC/100 WBC (test See_Comment [Automat ed code = [id number]) message] The system which generated this result transmitted reference range : 0.0 - 10.0 /100 WBCs. The refer ence range was not u sed to interpret th is result as normal/abnormal . NRBC x10^3 (test code <0.01 See_Comment [Auto mated = [id number]) message] The s ystem which generated this result transmitted reference range : 10*3/?L. The reference range was not used to interpret this result as normal/abnormal . GRAN MAT (NEUT) % 77.8 % (test code = 770-8) IMM GRAN % (test code 0.40 % = 0506747931) LYMPH % (test code = 10.4 % 736-9) MONO % (test code = 8.3 % 5905-5) EOS % (test code = 2.7 % 713-8) BASO % (test code = 0.4 % 706-2) GRAN MAT x10^3(ANC) 8.77 10*3/uL 1.88-7.09 H (test code = 7001313577) IMM GRAN x10^3 (test 0.04 10*3/uL 0.00-0.06 code = 8381628248) LYMPH x10^3 (test code 1.17 10*3/uL 1.32-3.29 L = 731-0) MONO x10^3 (test code 0.93 10*3/uL 0.33-0.92 H = 742-7) EOS x10^3 (test code = 0.30 10*3/uL 0.03-0.39 711-2) BASO x10^3 (test code 0.04 10*3/uL 0.01-0.07 = 704-7) Lab Interpretation Abnormal (test code = 39557-8) NPI:[id number] 16:49:00Surgical Pathology Report Case: [id number] Authorizing Provider: Felix Banks MD Collected: 04/18/2020 02:34 PM Ordering Location: [address] Received: 04/20/2020 08:22 AM Service Pathologist: Keyona Collado MD Specimens: A) - Duodenum, thickened and inflammed duodenum fold r/o polyp adenoma B) -Biopsy, Gastric, random gastric bx r/o h.pylori C) - Biopsy, Esophagus, esophageal bx r/o EOE A. DUODENUM, ENDOSCOPICMUCOSAL BIOPSIES- DUODENAL MUCOSA WITH PRESERVED VILLOUS ARCHITECTURE AND FOCAL SURFACE GASTRIC METAPLASIA- NO SIGNIFICANT ACTIVE INFLAMMATION OR DYSPLASIAB. STOMACH, ENDOSCOPIC MUCOSAL BIOPSIES- ANTRAL AND OXYNTIC MUCOSA WITH NO SIGNIFICANT DIAGNOSTIC ALTERATIONS- NEGATIVE FOR HELICOBACTER PYLORI- NEGATIVE FOR INTESTINAL METAPLASIA, DYSPLASIA OR CARCINOMAC. MID ESOPHAGUS BIOSPY:- SQUAMOUS EPITHELIUM WITH MILD NONSPECIFIC REACTIVE CHANGES- NO INTRAEPITHELIAL EOSINOPHILS ARE SEEN- see comment Si gning Pathologist Direct Phone Line: [phone] signed by Keyona Collado MD on 04/21/2020 at 4:49 PMSpecimen C. The features are nonspecific and may represent reflux associated changesin the appropriate clinical and endoscopic setting.27444 x3, 77330Asqu deficiency anemia.A. DuodenumB. Gastric biopsyC. Esophagus biopsy A. Received in formalin labeled with the patient's name, accession number and "duodenum" are multiple hyde-pink tissue fragments measuring up to 0.2 cm in greatest dimension, which are filtered and submitted in toto in A1.Part B. Received in formalin labeled with thepatient's name, accession number and "gastric biopsy" are three hyde-pink tissue fragment measuring up to 0.3 cm in greatest dimension, which are filtered and submitted in toto in B1.C. Received in formalin labeled with the patient's name, accession number and "esophagus biopsy" are four hyde-pink tissue fragments measuring up to 0.3 cm in greatest dimension, which are filtered and submitted in toto inC1. PA/Anthony.Microscopic examination is performed and the findings [...] Immunohistochemistry technical testing was performed at [facility], Pathology Laboratory where it was [...] qualified to perform high complexity clinical laboratory testing.BASIC METABOLIC [id number] 06:10:00 Test Item Value Reference Range Interpretation Comments SODIUM (BEAKER) 139 meq/L 136-145 (test code = 381) POTASSIUM (BEAKER) 3.9 meq/L 3.5-5.1 (test code = 379) CHLORIDE (BEAKER) 110 meq/L 98-107 H (test code = 382) CO2 (BEAKER) (test 23 meq/L 22-29 code = 355) BLOOD UREA NITROGEN 11 mg/dL 7-21 (BEAKER) (test code = 354) CREATININE (BEAKER) 1.17 mg/dL 0.57-1.25 (test code = 358) GLUCOSE RANDOM 102 mg/dL 70-105 (BEAKER) (test code = 652) CALCIUM (BEAKER) 8.5 mg/dL 8.4-10.2 (test code = 697) EGFR (BEAKER) (test 47 mL/min/1.73 ESTIMA BHAVANA GFR IS code = 1092) sq m NOT ACCURATE CREATININE CLEARANCE IN PREDICTING GLOMERULAR FILTRATION RATE . ESTIMATED GFR I S NOT APPLICABLE FOR DIALYSIS PATIEN TS. Dairy Feed Sales Consultant ID - PIAYA LCBC (HEMOGRAM ONLY)2020-04-19 05:45:00 [...] WBC 0-0 (BEAKER) (test code = 413) [id number] 05:41:00 Test Item Value Reference Range Interpretation Comments CORTISOL, TOTAL (BEAKER) (test code 7.1 ug/dL 3.7-19.4 = 2755) Dairy Feed Sales Consultant ID - PIAYA LBASIC METABOLIC [id number] 04:01:00 Test Item Value Reference Range Interpretation [...] S NOT APPLICABLE FOR DIALYSIS PATIEN TS. Dairy Feed Sales Consultant ID - EDASIHEMOGLOBIN AND [id number] 03:00:00 Test Item Value Reference Range Interpretation Comments HEMOGLOBIN (BEAKER) (test code = 7.7 GM/DL 11.2-15.7 L 410) HEMATOCRIT (BEAKER) (test code = 25.7 % 34.1-44.9 L 411) Dairy Feed Sales Consultant ID - [id number] (HEMOGRAM ONLY)2020-04-18 03:00:00 Test [...] 0-0 (BEAKER) (test code = 413) SARS-COV2/RT-PCR ([facility])2020-04-17 14:53:00 Test Item Value Reference Range Interpretation Comments SARS-COV2/RT-PCR (test Negative Not Detected, Negative, code = 5973164) See external report for linked test SARS-COV-2 PERFORMING LAB [facility] (test code = 6108409) Negative result for this test determines that [...] a nasopharyngeal swab specimen collected from individuals susp ected of COVID-19 by their healthcare provider.This test [...] 564(g) of the Act.Fact Sheet for Healthcare Providers:https://www.[employer]/sites/default/files/product/documents/Fact_Shee o_SW_Ahxebmhtm_Imgp_WHFC-FcI-7.pdfFact Sheet for Healthcare Patients:https://www.[employer]/sites/default/files/product/ documents/Vkvp_Oemyd_Jbyoqpce_Uxcn_ECEA-VuY-9.pdfPerforming Laboratory:[place] [address], [place] [address]AQ, BRAIN, WITHOUT [id number] 11:46:00FINAL REPORT CT, BRAIN, WITHOUT CONTRAST INDICATION: [...] Robert MDReport Verified Date/Time: 04/17/2020 11:46:51 ReadingLocation: [facility] B1 C013V Neuro Reading Room ONIN [id number] 10:30:00 Test Item Value Reference Range Interpretation [...] failure, acidosis, acute neurological disease, and persistent tachyarrhythmia.Dairy Feed Sales Consultant ID - [id number] 10:24:00 Test Item Value Reference Range Interpretation Comments LIPASE (BEAKER) (test code = 749) 30 U/L 8-78 Dairy Feed Sales Consultant ID - NTPCOMPREHENSIVE METABOLIC [id number] 10:17:00 Test Item Value Reference Range Interpretation [...] S NOT APPLICABLE FOR DIALYSIS PATIEN TS. Dairy Feed Sales Consultant ID - [id number] 09:59:00 Test Item Value Reference Range Interpretation Comments FERRITIN (BEAKER) (test code = 361) < ng/mL 5.00-275.00 L Dairy [employer] Sales Consultant ID - NTPTSH/FREE T4 IF [id number] 09:50:00 Test Item Value Reference Range Interpretation Comments THYROID STIMULATING HORMONE 4.140 uIU/mL 0.350-4.940 (BEAKER) (test code = 772) Dairy Feed Sales Consultant ID - NTPVITAMIN B12 AND [id number] 09:50:00 Test Item Value Reference Range Interpretation Comments VITAMIN B12 (BEAKER) (test code = 332 pg/mL 213-816 774) FOLATE (BEAKER) (test code = 362) 6.20 ng/mL >=7.00 L Dairy [employer] Sales Consultant ID - NTPCBC W/PLT COUNT & AUTO [id number] 09:28:00 Test Item Value Reference Range Interpretation [...] % 20-55 L (test code = 2590) Dairy Feed Sales Consultant ID - NTPPROTHROMBIN TIME/[id number] 09:10:00 Test Item Value Reference Range Interpretation [...] mechanical heart valves.CBC W/PLT COUNT & AUTO [id number] 07:04:00 Test Item Value Reference Range Interpretation [...] (BEAKER) (test code = 2801) BASIC METABOLIC [id number] 06:54:00 Test Item Value Reference Range Interpretation [...] APPLICABLE FOR DIALYSIS PATIEN TS. HEMOGLOBIN AND [id number] 23:13:00 Test Item Value Reference Range Interpretation Comments HEMOGLOBIN (BEAKER) (test code = 7.8 GM/DL 11.2-15.7 L 410) HEMATOCRIT (BEAKER) (test code = 25.1 % 34.1-44.9 L 411) HEMOGLOBIN AND [id number] 18:29:00 Test Item Value Reference Range Interpretation Comments HEMOGLOBIN (BEAKER) (test code = 7.6 GM/DL 11.2-15.7 L 410) HEMATOCRIT (BEAKER) (test code = 24.4 % 34.1-44.9 L 411) HEMOGLOBIN AND [id number] 09:57:00 Test Item Value Reference Range Interpretation Comments HEMOGLOBIN (BEAKER) (test code = 7.2 GM/DL 11.2-15.7 L 410) HEMATOCRIT (BEAKER) (test code = 23.2 % 34.1-44.9 L 411) [id number] 05:50:00 Test Item Value Reference Range Interpretation Comments PHOSPHORUS (BEAKER) (test code = 2.9 mg/dL 2.3-4.7 604) [id number] 05:50:00 Test Item Value Reference Range Interpretation Comments MAGNESIUM (BEAKER) (test code = 2.0 mg/dL 1.6-2.6 627) BASIC METABOLIC [id number] 05:50:00 Test Item Value Reference Range Interpretation [...] APPLICABLE FOR DIALYSIS PATIEN TS. HEPATIC FUNCTION [id number] 05:50:00 Test Item Value Reference Range Interpretation [...] 6-55 347) CBC W/PLT COUNT & AUTO [id number] 05:40:00 Test Item Value Reference Range Interpretation [...] PERCENT (BEAKER) (test code = 2801) PROTHROMBIN [id number] 05:29:00 Test Item Value Reference Range Interpretation [...] wiht mechanical heart valves.RAD, ABDOMEN/KUB, 1 VIEW [id number] 02:43:00Reason for exam:->bloatingShould this be performed at [...] Verified Date/Time: 06/16/2019 02:43:11 RAPID INFLUENZA A&B [id number] 01:49:00 Test Item Value Reference Range Interpretation Comments RAPID INFLUENZA A AG (BEAKER) Negative Negative, Inconclusive (test code = 1622) RAPID INFLUENZA B AG (BEAKER) Negative Negative, Inconclusive (test code = 1623) RAD, CHEST, 1 VIEW, NON [id number] 01:08:00Reason for exam:->coughShould this be performed at [...] Guille Barragan Verified Date/Time: 06/16/2019 01:08:45 BLOOD [id number] 08:00:00 Test Item Value Reference Range Interpretation Comments CULTURE (BEAKER) (test No growth in 5 days code = 1095) BLOOD [id number] 20:01:00 Test Item Value Reference Range Interpretation Comments CULTURE (BEAKER) (test No growth in 5 days code = 1095) TISSUE [id number] 12:58:00Surgical Pathology Report Case: [id number] Authorizing Provider: Len Waggoner, Collected: 06/10/2019 1111 Ordering Location: [place] [address] ICU Received: 06/10/2019 1601 Pathologist: Fernando Plascencia [...] DYSPLASIA/ MALIGNANCY Signing Pathologist Direct Phone Line: [phone] signed by Fernando Plascencia MD on 06/12/2019 at 12:58 PMB. Detached/ loosely adherent refractile foreign material is seen in the biopsy, likely representing pill fragments. Clinical and endoscopic correlation is recommended.[id number] bleedingA. Specimen is received in formalin labeled [...] Immunohistochemistry technical testing was performed at [facility], Pathology Laboratory where it was [...] certified under the Clinical Laboratory Improvement Amendments lm2129 (CLIA-88) as qualified to perform high complexity clinical laboratory testing.POCT-GLUCOSE [id number] 11:45:00 Test Item Value Reference Range Interpretation Comments POC-GLUCOSE METER 85 mg/dL 70-110 TESTED AT [place] [address] ([employer]) (test code = [facility] [place] [address] 1538) T4, [id number] 08:58:00 Test Item Value Reference Range Interpretation Comments FREE T4 ([employer]) (test code = 655) 0.58 ng/dL 0.70-1.48 L POCT-GLUCOSE [id number] 08:02:00 Test Item Value Reference Range Interpretation Comments POC-GLUCOSE METER 91 mg/dL 70-110 TESTED AT [place] [address] ([employer]) (test code = AUDI Pollock [facility] [address] 1538) TSH/FREE T4 IF [id number] 06:57:00 Test Item Value Reference Range Interpretation [...] WBC 0-0 (BEAKER) (test code = 413) [id number] 06:42:00 Test Item Value Reference Range Interpretation Comments PHOSPHORUS (BEAKER) (test code = 2.7 mg/dL 2.3-4.7 604) [id number] 06:42:00 Test Item Value Reference Range Interpretation Comments MAGNESIUM (BEAKER) (test code = 2.0 mg/dL 1.6-2.6 627) COMPREHENSIVE METABOLIC [id number] 06:42:00 Test Item Value Reference Range Interpretation [...] NOT APPLICABLE FOR DIALYSIS PATIEN TS. POCT-GLUCOSE [id number] 23:02:00 Test Item Value Reference Range Interpretation Comments POC-GLUCOSE METER 113 mg/dL 70-110 H TESTED AT [facility] 67[facility] (BEAKER) (test code = AUDI Pollock [facility] 1538) [address] T3, [id number] 18:30:00 Test Item Value Reference Range Interpretation Comments T3 FREE (BEAKER) < pg/mL 1.71-3.71 L Testing per formed at [facility] (test code = 908) DIAGNOSTIC S [address] [address] [id number] 18:30:00 Test Item Value Reference Range Interpretation Comments T3 TOTAL (BEAKER) 27 ng/dL 48-159 L Testing pe rformed at (test code = 656) [facility] [place] [id number] POCT-GLUCOSE [id number] 18:14:00 Test Item Value Reference Range Interpretation Comments POC-GLUCOSE METER 106 mg/dL 70-110 TESTED AT [place] [address] ([facility]) (test code = GUSTAVODC Maris [facility] 1538) [address] HEMOGLOBIN AND [id number] 18:09:00 Test Item Value Reference Range Interpretation Comments HEMOGLOBIN ([facility]) (test code = 8.4 GM/DL 11.2-15.7 L 410) HEMATOCRIT ([facility]) (test code = 26.4 % 34.1-44.9 L 411) POCT-GLUCOSE [id number] 12:28:00 Test Item Value Reference Range Interpretation Comments POC-GLUCOSE METER 132 mg/dL 70-110 H TESTED AT [place] [address] ([facility]) (test code = [facility] 1538) [address] CORTISOL,60 [id number] 10:34:00 Test Item Value Reference Range Interpretation Comments CORTISOL BASELINE NETWORKED 8.4 mcg/dL ([facility]) (test code = 2307) CORTISOL 30 MINUTE NETWORKED 16.1 mcg/dL ([facility]) (test code = 2308) CORTISOL, 60 MINUTE [...] (<34 mcg/dL) and low response to ACTH (&l t;or=9 mcg/dL) OR High basal cortisol (>34 mcg/dL) or high ACTH response (>9 mcg/dL) 3.Poor Survival: High basal cortisol (>34 mcg/dL) and low ACTH response (<or=9 mcg/dL).Treatment of patients with relative adrenal dysfunction may be indicated based on test results and the clinical condition of the patient. Additional information, including [...] serum cortisollevel 60 minutes after cosyntropin administration.CORTISOL,30 [id number] 09:35:00 Test Item Value Reference Range Interpretation [...] a study by Stu et al (VIANEY 2000,283(8):9506-45), the ACTH Stimulation Test provides important prognostic information. This study defined 3 groups of patients with sepsis or septic shock: 1. Good Survival: Low basal cortisol (<or=34 mcg/dL) and high ACTH response (>9mcg/dL) 2. Intermediate Survival: Low basal cortisol (<34 mcg/dL) and low response to ACTH (&l t;or=9 mcg/dL) OR High basal cortisol (>34 mcg/dL) or high ACTH response (>9 mcg/dL) 3.Poor Survival: High basal cortisol (>34 mcg/dL) and low ACTH response (<or=9 mcg/dL).Treatment of patients with relative adrenal dysfunction may be indicated based on test results and the clinical condition of the patient. Additional information, including [...] Draw serum cortisollevel 60 minutes after cosyntropin administration.CORTISOL,[id number] 09:20:00 Test Item Value Reference Range Interpretation [...] (<34 mcg/dL) and low response to ACTH (&l t;or=9 mcg/dL) OR High basal cortisol (>34 mcg/dL) or high ACTH response (>9 mcg/dL) 3.Poor Survival: High basal cortisol (>34 mcg/dL) and low ACTH response (<or=9 mcg/dL).Treatment of patients with relative adrenal dysfunction may be indicated based on test results and the clinical condition of the patient. Additional information, including [...] Draw serum cortisollevel 60 minutes after cosyntropin administration.[id number] 07:16:00 Test Item Value Reference Range Interpretation Comments MAGNESIUM (BEAKER) (test code = 2.0 mg/dL 1.6-2.6 627) COMPREHENSIVE METABOLIC [id number] 07:16:00 Test Item Value Reference Range Interpretation [...] S NOT APPLICABLE FOR DIALYSIS PATIEN TS. [id number] 07:01:00 Test Item Value Reference Range Interpretation [...] (test code = 2590) VITAMIN B12 AND [id number] 06:14:00 Test Item Value Reference Range Interpretation Comments VITAMIN B12 (BEAKER) (test code = 285 pg/mL 213-816 774) FOLATE (BEAKER) (test code = 362) 6.3 ng/mL >=7.0 L [id number] 06:05:00 Test Item Value Reference Range Interpretation Comments CORTISOL, TOTAL (BEAKER) (test code 3.2 ug/dL 3.7-19.4 L = 2755) HIV-1 ANTIGEN WITH HIV-1/2 [id number] 06:04:00 Test Item Value Reference Range Interpretation Comments HIV-1 ANTIGEN WITH HIV 1\\T\\2 Nonreactive Nonreactive ANTIBODY (2) (BEAKER) (test code = 2586) [id number] 06:03:00 Test Item Value Reference Range Interpretation [...] (BEAKER) (test code = 412) PLATELET COUNT (AKER) (test 260 K/CU MM 150-450 code = 756) MEAN PLATELET VOLUME (AKER) 9.7 fL 9.4-12.3 (test code = 754) NUCLEATED RED BLOOD CELLS 0 /100 WBC 0-0 (AKER) (test code = 413) RETICULOCYTE [id number] 05:08:00 Test Item Value Reference Range Interpretation Comments RETICULOCYTE COUNT PCT (AKER) (test 2.9 % 0.5-1.7 H code = 575) POCT-GLUCOSE [id number] 22:01:00 Test Item Value Reference Range Interpretation Comments POC-GLUCOSE METER 132 mg/dL 70-110 H TESTED AT [facility] [address] ([facility]) (test code = [place] 1538) [address] HEMOGLOBIN AND [id number] 21:02:00 Test Item Value Reference Range Interpretation Comments HEMOGLOBIN (BEAKER) (test code = 8.1 GM/DL 11.2-15.7 L 410) HEMATOCRIT (BEAKER) (test code = 25.5 % 34.1-44.9 L 411) T4, [id number] 11:38:00 Test Item Value Reference Range Interpretation Comments FREE T4 (BEAKER) (test code = 655) 0.46 ng/dL 0.70-1.48 L TSH/FREE T4 IF [id number] 11:00:00 Test Item Value Reference Range Interpretation Comments THYROID STIMULATING HORMONE 34.88 uIU/mL 0.35-4.94 H (BEAKER) (test code = 772) HEMOGLOBIN AND [id number] 10:21:00 Test Item Value Reference Range Interpretation Comments HEMOGLOBIN (BEAKER) (test code = 8.9 GM/DL 11.2-15.7 L 410) HEMATOCRIT (BEAKER) (test code = 27.3 % 34.1-44.9 L 411) [id number] 05:22:00 Test Item Value Reference Range Interpretation Comments PHOSPHORUS (BEAKER) (test code = 2.9 mg/dL 2.3-4.7 604) [id number] 05:22:00 Test Item Value Reference Range Interpretation Comments MAGNESIUM (BEAKER) (test code = 2.0 mg/dL 1.6-2.6 627) COMPREHENSIVE METABOLIC [id number] 05:22:00 Test Item Value Reference Range Interpretation [...] U/L 29-200 code = 380) LACTIC ACID, [id number] 05:09:00 Test Item Value Reference Range Interpretation [...] 0-0 (BEAKER) (test code = 413) POCT-GLUCOSE [id number] 00:51:00 Test Item Value Reference Range Interpretation Comments POC-GLUCOSE METER 88 mg/dL 70-110 TESTED AT [facility] [address] (BEAKER) (test code = [place] [id number] 8418) CHLORIDE, RANDOM [id number] 19:35:00 Test Item Value Reference Range Interpretation Comments CHLORIDE URINE (BEAKER) (test code = 80 meq/L 682) Reference Range: No NormalsCREATININE, RANDOM [id number] 19:35:00 Test Item Value Reference Range Interpretation Comments CREATININE URINE (BEAKER) (test 74.8 mg/dL code = 375) Reference Range: No NormalsSODIUM, RANDOM [id number] 19:35:00 Test Item Value Reference Range Interpretation Comments SODIUM URINE (BEAKER) (test code = 97 meq/L 243) Reference Range: No NormalsURINALYSIS W/ REFLEX URINE [id number] 18:59:00 Test Item Value Reference Range Interpretation [...] 514) SOURCE(BEAKER) (test code = 2795) POCT-GLUCOSE [id number] 18:16:00 Test Item Value Reference Range Interpretation Comments POC-GLUCOSE METER 71 mg/dL 70-110 TESTED AT [facility] 67[address] (BEAKER) (test code = [place] [address] 1538) T4, [id number] 18:06:00 Test Item Value Reference Range Interpretation Comments FREE T4 (BEAKER) (test code = 655) < ng/dL 0.70-1.48 L HEPATIC FUNCTION [id number] 17:52:00 Test Item Value Reference Range Interpretation [...] 14 U/L 6-55 347) TSH/FREE T4 IF [id number] 17:49:00 Test Item Value Reference Range Interpretation Comments THYROID STIMULATING HORMONE 125.05 uIU/mL 0.35-4.94 H (BEAKER) (test code = 772) [id number] 16:49:00 Test Item Value Reference Range Interpretation Comments MAGNESIUM (BEAKER) (test code = 1.8 mg/dL 1.6-2.6 627) BASIC METABOLIC [id number] 16:49:00 Test Item Value Reference Range Interpretation [...] S NOT APPLICABLE FOR DIALYSIS PATIEN TS. [id number] 16:41:00 Test Item Value Reference Range Interpretation [...] INR is2.5-3.5 for patients wiht mechanical heart valves.[id number] 16:41:00 Test Item Value Reference Range Interpretation [...] code = 413) RAD, ABDOMEN/KUB, 1 VIEW [id number] 16:14:00Reason for exam:->abdominal distentionShould this be performed [...] MDReport Verified Date/Time: 06/09/2019 16:14:10 Reading Location: [address] Transitional Reading Room Electronicallysigned by: MOSHE GUTIERREZ M.D. on 06/09/2019 04:14 PM
--- NOTE | 2022-01-25 11:07 | RAD REPORT ---
EXAM DESCRIPTION: CT - Thorax Wo Con - 01/25/2022 10:44 am CLINICAL HISTORY: Fracture, sternumchest pain, chest trauma COMPARISON: Chest Abd Pelvis Wo Con dated 04/17/2020; CTANGIO CHEST FOR PE dated 09/09/2010 TECHNIQUE: Axial 5 mm thick images of the chest were obtained without IV contrast. All CT scans are performed using dose optimization technique as appropriate and may include automated exposure control or mA/KV adjustment according to patient size. FINDINGS: No mass or infiltrate in the lung parenchyma. No pleural thickening or pleural effusion. N o pneumothorax. No abnormal mediastinal or hilar masses or lymphadenopathy seen. No gross aortic or pulmonary artery finding suspected. Assessment is limited in the absence of IV contrast. No cardiomegaly. Minimal per icardial thickening or effusion similar or only fractionally increased from comparison. Maximum thick ness is 3.5 mm anteriorly. No chest wall mass or abnormal axillary lymphadenopathy. Thoracic spine degenerative changes are present with multiple Schmorl's nodes in the midportion of th e thoracic spine with all levels showing some degree of endplate spurring. No acute thoracic spine fi nding seen. The manubrium is intact. The old superior sternum fracture seen March 2020 as an unhealed or nonunion has now healed. This does not have a sharply demarcated fracture line typically associated with acute fracture. There is some callus formation and remodeling changes underway. Re-injury of a prior incom pletely healed sternum fracture is certainly possible. Pathologic changes of the sternum are not suspected. IMPRESSION: Patient has an incompletely healed fracture of the lower sternum. No new acute fracture is seen though re-injury at this fracture site is possible. The patient has old superior sternum fracture seen at March 2020 appears to be fully healed. No acute rib fracture or other acute traumatic chest finding.
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
[2022-01-25 15:19] VITALS: BP 193/83; TEMP 98.4; O2SAT 100
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
== END 2022-01-25 13:46 | disposition left against medical advice (07) ==
LOC: ER 09:29
DX: R07.9 Chest pain, unspecified (principal); Y04.8XXA Assault by other bodily force, initial encounter
CPT/HCPCS: 71250; 99282

== ENCOUNTER 2022-01-29 12:39 | Emergency (ER) | payer SELFPAY ==
--- OUTSIDE RECORDS SUMMARY | 2022-01-29 12:43 | XMS REPORT | Continuity of Care Document ---
:1955 Author Organization [facility] t Address [address] [place] [address] Care Team Providers Name Role Phone EULOGIO MCKNIGHT Primary Care Physician Unavailable PAUL SANTOS Attending Clinician Unavailable EULOGIO MCKNIGHT Attending Clinician Unavailable Jaleel SORENSEN Attending Clinician BOB Attending Clinician Unavailable Kathleen Araiza DO Attending Clinician Bob EPSTEIN Attending Clinician Team, Health Maintenance Attending Clinician Unavailable Eulogio Mcknight MD Attending [...] Treatment Clinician Date Altered Altered Disease Active Univers mental mental 4-26 ity of status status 00:00: [address] No known No known Disease Unive rs active active ity of problems problems [facility] Allergies, Adverse Reactions, Alerts Allergy Allergy Status Severity Reaction(s) Onset Inactive Treating Comm ents Source Name Type Date Date Clinician NO KNOWN Drug Active Univers ALLERGIE Class ity of S [facility] NO KNOWN Allergy Active [facility] ALLERGIE S Social History Social Habit Start Date Stop Date Quantity Comments Source History [facility] University o f Alcohol Std Drinks [place] [facility] History [facility] University o f Alcohol Binge [place] [facility] History [facility] University o f Alcohol Comment [place] Med ical Branch Exposure to 2022-01-02 2022-01-12 Not sure [facility] SARS-CoV-2 (event) 00:00:00 06:54:00 [facility] Tobacco use and 2022-01-11 2022-01-11 Never used Universit y of exposure 00:00:00 00:00:00 [facility] Alcohol intake 2022-01-11 2022-01-11 Lifetime University of 00:00:00 00:00:00 non-drinker [facility] (finding) [place] Cigarettes smoked 2022-01-11 2022-01-11 Univers ity of current (pack per 00:00:00 00:00:00 [facility]) - Reported Branch History [facility] 2021-05-07 2021-05-07 1 University o f Alcohol Frequency 00:00:00 00:00:00 [facility] Sex Assigned At [birth year] Universit y of 00:00:00 00:00:00 [facility] Smoking Status Start Date Stop Date Source Current every day smoker 2022-01-11 00:00:00 Uni versity of [facility] Never smoker [facility] Medications Ordered Filled Start Stop Current Ordering Indication Dosage Frequency Signature Comments Components Source Medication Medication Date Date Medication? Clinician (SIG) Name Name levoFLOXaci No 500mg 500 mg, U nivers n 01-12 Oral, ity of (LEVAQUIN) 18:15: 19:07 ONCE, 1 Mark as tablet 500 00 :00 dose, On Medic al mg Wed Branch 01/12/22 at 1315, MICAELA
Re ason for Anti-Infec tive: Documented Infection< br>Documen bhavana Infection Site: Urine
D uration of Therapy: Other (see Comments)< br>Restric bhavana use approved by: MIQUEL PROVIDER aspirin 2021-0 Yes 81mg 81 mg, Univers chewable 01-12 Oral, ity of tablet 81 14:00: DAILY, [place] mg 00 First dose Medical on Mon01/12/22 at 0900, Until Discontinu ed, Routine lisinopriL Yes 20mg 20 mg, Unive rs (PRINIVIL,Z 01-12 Oral, ity of ESTRIL) 14:00: DAILY, [place] tablet 20 00 First dose Medi bk mg on Mon01/12/22 at 0900, Until Discontinu ed, Routine buPROPion Yes 150mg 150 mg, Univ ers XL 01-12 Oral, ity of (WELLBUTRIN 14:00: DAILY, [place] XL[place] tablet 00 First dose Med ical 150 mg on Mon01/12/22 at 0900, Until Discontinu ed, Routine levothyroxi Yes 150ug 150 mcg, U nivers ne 01-12 Oral, ity of (SYNTHROID) 11:00: QAM-0600, [place] tablet 150 00 First dose Med ical mcg on Mon01/12/22 at 0600, Until Discontinu ed, Routine heparin Yes 5000U 5,000 Univers (porcine) 01-12 Units, ity of injection 03:00: [place]cut[place]o [place] 5,000 Units 00 us, Q8H, Medi bk First dose Branch on Mon01/11/22 at 2200, Until Discontinu ed, Routine busPIRone 0 Yes 5mg 5 mg, Univers (BUSPAR) 01-12 Oral, BID, ity o f tablet 5 mg 01:00: First dose [place] 00 on Mon01/11/22 at Branch 2000, Until Discontinu ed, Routine levoFLOXaci 2021- Yes [id number] 250mg Take 0.5 Univers n 500 mg 01-12 tablets by it y of tablet 00:00: 04:59 mouth [place] 00 :00 every 24 Medical (twenty- Branch ur) hours for 2 days. levoFLOXaci 2021- Yes [id number] 250mg Take 0.5 Univers n 500 mg 01-12 tablets by it y of tablet 00:00: 04:59 mouth [place] 00 :00 every 24 Medical (- Branch ur) hours for 2 days. cefTRIAXone 2021- No 1000mg 1,000 mg, Univers (ROCEPHIN) 01-11 IV ity of 1,000 mg in 23:00: 17:12 [place], [place] NaCl 0.9% 00 :13 Q24H ABX, Medic al (NS) 50 mL First dose Bra nch MINI-BAG on Mon01/11/22 at 1800, Until Discontinu ed, Administer over 30 Minutes, 50 mL
Reas on for Anti-Infec tive: Empiric Therapy for Suspected Infection< br>Empiric Therapy Site: Urine
D uration of therapy: 7 days NaCl 0.9% Yes 1000mL at 125 Univ ers (NS) IV 4-26 mL/hr, IV ity of infusion 21:30: Infusion, [place] 1,000 mL 00 CONTINUOUS Medic al , Starting Branch on Mon01/11/22 at 1630, Until Discontinu ed, Routine nitroglycer Yes .4mg 0.4 mg, Uni vers in 01-11 Sublingual ity of (NITROSTAT) 21:18: , Q5MIN [place] as sublingual 13 PRN, Medical tablet 0.4 Starting Branc h mg on Mon01/11/22 at 1618, Until Discontinu ed, Routine, Chest pain ondansetron Yes 4mg 4 mg, Slow Univers (ZOFRAN 01-11 IV Push, ity of (PF)) 21:17: Q6HPRN, [place] injection 4 49 Starting Medi bk mg on 01/11/22 at 1617, Until Discontinu ed, Routine, Nausea and Vomiting (N/V) traMADoL 2021- Yes 50mg 50 mg, Univer s (ULTRAM) 01-11 Oral, ity of tablet 50 21:17: 21:16 Q8HPRN, [place] mg 40 :40 Starting Medical on [facility] 01/11/22 at 1617, Until Svitlana 01/13/22 at 1616, Routine, Pain (scale 4-6) acetaminoph Yes 650mg 650 mg, Un louie en 01-11 Oral, ity of (TYLENOL) 21:17: Q6HPRN, [place] tablet 650 35 Starting Medic al mg on Mon Branch 01/11/22 at 1617, Until Discontinu ed, Routine, Pain (scale 1-3) LORazepam Yes .5mg 0.5 mg, Unive rs (ATIVAN) 01-11 Slow IV ity of injection 21:15: Push, [place] 0.5 mg 07 BIDPRN, 2 Medical doses, Branch Starting on Mon01/11/22 at 1615, Until Discontinu ed, Routine, Anxiety, Agitation NaCl 0.9% 2021- No 1000mL at 999 Uni vers (NS) bolus 01-11 04-26 mL/hr, ity of infusion 15:45: 16:45 1,000 mL, [place] as 1,000 mL 00 :00 IV Medical Piggyback, Branch ONCE, 1 dose, On Mon01/11/22 at 1045, STAT NaCl 0.9% 2021- No 1000mL at 999 Uni vers (NS) bolus 01-11-26 mL/hr, ity of infusion 13:45: 13:40 1,000 mL, [place] as 1,000 mL 00 :00 IV Medical Piggyback, Branch ONCE, 1 dose, On Mon01/11/22 at 0845, STAT levothyroxi 2020-09 Yes [id number] 150ug Take 1 Univers ne 150 mcg 1-29 tablet by ity of tablet 00:00: mouth [place] 00 every Medical morning. Branch busPIRone 5 2020-09 Yes [id number] 5mg Take 1 Univers mg tablet 1-29 tablet by ity o f 00:00: mouth 2 [place] 00 (two) Medical times Branch daily. buPROPion 2020-09 Yes [id number] 150mg Take 1 Univers XL 1-29 tablet by ity of (WELLBUTRIN 00:00: mouth [place] XL) 150 mg 00 daily. Medical 24 hr Branch tablet lisinopriL 2020-09 Yes [id number] 20mg Take 1 U nivers 20 mg 1-29 tablet by ity of tablet 00:00: mouth [place] 00 daily. Medical Branch levothyroxi 2020-09 Yes [id number] 150ug Take 1 Univers ne 150 mcg 1-29 tablet by ity of tablet 00:00: mouth [place] 00 every Medical morning. Branch busPIRone 5 2020-09 Yes [id number] 5mg Take 1 Univers mg tablet 1-29 tablet by ity o f 00:00: mouth 2 [place] 00 (two) Medical times Branch daily. buPROPion 2020-09 Yes [id number] 150mg Take 1 Univers XL 1-29 tablet by ity of (WELLBUTRIN 00:00: mouth [place] XL) 150 mg 00 daily. Medical 24 hr Branch tablet lisinopriL 2020-09 Yes [id number] 20mg Take 1 U nivers 20 mg 1-29 tablet by ity of tablet 00:00: mouth [place] 00 daily. Medical Branch levothyroxi 2020-09 Yes [id number] 150ug Take 1 Univers ne 150 mcg 1-29 tablet by ity of tablet 00:00: mouth [place] 00 every Medical morning. Branch busPIRone 2020-09 Yes [id number] 5mg Take 1 Univers mg tablet 1-29 tablet by ity o f 00:00: mouth 2 [place] (two) Medical times Branch daily. buPROPion 2020-09 Yes [id number] 150mg Take 1 Univers XL 1-29 tablet by ity of (WELLBUTRIN 00:00: mouth [place] XL) 150 mg 00 daily. Medical 24 hr Branch tablet lisinopriL 2020-09 Yes [id number] 20mg Take 1 U nivers 20 mg 1-29 tablet by ity of tablet 00:00: mouth [place] 00 daily. Medical Branch levothyroxi 2020-09 Yes [id number] 150ug Take 1 Univers ne 150 mcg 1-29 tablet by ity of tablet 00:00: mouth [place] 00 every Medical morning. Branch busPIRone 2020-09 Yes [id number] 5mg Take 1 Univers mg tablet 1-29 tablet by ity o f 00:00: mouth 2 [place] 00 (two) Medical times Branch daily. buPROPion 2020-09 Yes [id number] 150mg Take 1 Univers XL 1-29 tablet by ity of (WELLBUTRIN 00:00: mouth [place] XL) 150 mg 00 daily. Medical 24 hr Branch tablet lisinopriL 2020-09 Yes [id number] 20mg Take 1 U nivers 20 mg 1-29 tablet by ity of tablet 00:00: mouth [place] 00 daily. Medical Branch levothyroxi 2020-09 Yes [id number] 150ug Take 1 Univers ne 150 mcg 1-29 tablet by ity of tablet 00:00: mouth [place] 00 every Medical morning. Branch busPIRone 5 2020-09 Yes [id number] 5mg Take 1 Univers mg tablet 1-29 tablet by ity o f 00:00: mouth 2 [place] 00 (two) Medical times Branch daily. buPROPion 2020-09 Yes [id number] 150mg Take 1 Univers XL 1-29 tablet by ity of (WELLBUTRIN 00:00: mouth [place] XL) 150 mg 00 daily. Medical 24 hr Branch tablet lisinopriL 2020-09 Yes [id number] 20mg Take 1 U nivers 20 mg 1-29 tablet by ity of tablet 00:00: mouth [place] 00 daily. Medical Branch busPIRone 5 2020- No [id number] 5mg Take 1 Univers mg tablet 8-07 08- tablet by ity of 00:00: 00:00 mouth 2 [place] 00 :00 (two) Medical times Branch daily. levothyroxi 2020- No [id number] 150ug Take 1 Univers ne 150 mcg 8-07 08- tablet by ity of tablet 00:00: 00:00 mouth [place] 00 :00 every Medical morning. Branch buPROPion 2020- No [id number] 150mg Take 1 Univers XL 8-20 -29 tablet by ity of (WELLBUTRIN 00:00: 00:00 [place] XL) 150 mg 00 :00 daily. Medical 24 hr Branch tablet busPIRone 5 2020- No [id number] 5mg Take 1 Univers mg tablet 8-07 08- tablet by ity of 00:00: 00:00 mouth 2 [place] 00 :00 (two) Medical times Branch daily. levothyroxi 2020- No [id number] 150ug Take 1 Univers ne 150 mcg 8-20 -29 tablet by ity of tablet 00:00: 00:00 mouth [place] 00 :00 every Medical morning. Branch buPROPion 2020- No [id number] 150mg Take 1 Univers XL 8-20 -29 tablet by ity of (WELLBUTRIN 00:00: 00:00 [place] XL) 150 mg 00 :00 daily. Medical 24 hr Branch tablet Vital Signs Vital Name Observation Time Observation Value Comments Source Systolic blood 2022-01-12 16:15:00 160 mm[Hg] Univer sity [facility] Diastolic blood 2022-01-12 16:15:00 86 [facility]Hg[facility] rate 2022-01-12 16:15:00 74 /min Universi [facility] Body temperature 2022-01-12 16:15:00 36.44 Becki [facility] Respiratory rate 2022-01-12 16:15:00 13 /min [facility] Oxygen saturation in 2022-01-12 16:15:00 94 /min [facility] Arterial blood by [facility] [place] [facility] Pulse oximetry Branch Body height 2022-01-11 18:50:00 171.5 cm Universi [facility] Body weight 2022-01-11 18:50:00 [facility] 2022-01-11 18:50:00 20.40 kg/m2 [facility] Systolic blood 2021-08-16 22:21:00 194 mm[facility]Hg] [facility] blood 2021-08-16 22:21:00 91 mm[facility]Hg] [facility] rate 2021-08-16 22:20:00 66 /min [facility] Body height 2021-08-16 22:20:00 167.6 cm [facility] Body weight 2021-08-16 22:20:00 64.411 [facility] BMI 2021-08-16 22:20:00 22.92 kg/m2 [facility] Procedures Procedure Date / Time Performing Clinician Source Performed BASIC METABOLIC PANEL 2022-01-12 09:10:00 Claire Mejia [facility] (NA, K, CL, CO2, Medical Branch GLUCOSE, BUN, CREATININE, CA) TROPONIN I 2022-01-12 05:50:00 Claire Mejia [place] o f [facility] HB ECG ROUTINE & RHYTHM 2022-01-11 23:43:48 Claire Mejia [facility] STRIP [facility] CREATININE, URINE RANDOM 2022-01-11 22:16:00 Claire Mejia [facility] SODIUM, URINE RANDOM 2022-01-11 22:16:00 Claire Mejia [facility] CREATINE KINASE 2022-01-11 21:35:00 Claire Mejia [facility] TROPONIN I 2022-01-11 21:35:00 Claire Mejia [facility] THYROID STIMULATING 2022-01-11 21:35:00 Claire Mejia [facility] HORMONE [facility] ACUTE CARE ARTERIAL 2022-01-11 19:25:00 Claire Mejia [facility] BLOOD GAS [facility] CT THORAX WO CONTRAST 2022-01-11 18:02:17 [facility] XR CHEST 1 VW 2022-01-11 17:20:00 [facility] TROPONIN I 2022-01-11 13:50:00 Claire Mejia [facility] BASIC METABOLIC PANEL 2022-01-11 13:50:00 [facility] (NA, K, CL, CO2, Medical [place] GLUCOSE, BUN, CREATININE, CA) CT HEAD WO CONTRAST 2022-01-11 07:42:[address] [facility] COMP. METABOLIC PANEL 2022-01-11 07:24:00 Brunilda Araiza [facility] ([id number]) [facility] ETHANOL 2022-01-11 07:24:00 Brunilda Araiza [facility] CBC WITH DIFF 2022-01-11 07:24:00 Brunilda Araiza [facility] URINE DRUG (IMMUNOASSAY) 2022-01-11 07:24:00 Brunilda Araiza [facility] DRUG Medical [facility] SCREEN W/O REFLEX URINALYSIS 2022-01-11 07:23:00 Brunilda Araiza [facility] Encounters Start End Encounter Admission Attending Care Care Encounter Source Date/Time Date/Time Type Type Clinicians Facility Department ID 2021-06-23 Inpatient ER RISHABH SANTOS [facility] [id number] 50 [facility] 01:38:07 KATIANA 2022-02-15 2022-02-15 Outpatient Maris MCKNIGHT [facility] [id number] S-[id number] Univers 14:30:00 14:30:00 BRANDON [id number] itsari [facility] 2022-01-13 2022-01-13 Transition EMMANUEL Marmolejo [id number] Univers 00:00:00 00:00:00 of Care Haylie MAURO [id number] ity of [place] 4.2.7.2.686 [place] [id number] [facility] 403 Branch 2022-01-11 2022-01-12 Inpatient X BOB PAUL [facility] [id number] Univers 02:24:00 14:45:00 CLAIRE hernández [facility] 2022-01-11 2022-01-12 Hospital Brunilda Araiza [facility] 1.2.84 0.114 [id number] Univers 02:24:00 14:45:00 Encounter Claire Mejia 350.1.13.10 ity of [place] 4[place]2.7.2.686 [place] [facility] [id number] [place] 729020 [place] 2021-09-08 2021-09-08 Telephone Team, [facility] KULWINDER [id number] Univers 00:00:00 00:00:00 Health CARLOS 350.1.13.10 it y of [facility] 4.2.7.2.686 [place] [id number] [place] 729022 [place] 2021-08-16 2021-08-16 Outpatient Maris MCKNIGHT [facility] [id number] Univers 16:15:00 16:34:05 BRANDON hernández [facility] 2021-08-16 2021-08-16 [facility] [id number] Univers 16:13:41 16:28:41 Visit Brandon POWELL 350.1.13.10 it y of Eulogio QUINTERO 4.2.7.2.686 Mark as NATE?BLEA [id number] Pr sanya [address] MEDICAL OFFICE BUILDING 2019-11-13 2019-11-13 Emergency X CARLOS [facility] ERT [id number] Univers 12:50:48 15:36:00 [place] hernández [facility] Results Test Description Test Time Test Comments Results Result Comments Source BASIC METABOLIC PANEL (NA, K, CL, CO2, GLUCOSE, BUN, 2021-12 11:05:24 CREATININE, CA) Test Item Value Reference Range Interpretation Comme nts NA (test code = 4595039444) 142 mmol/L 135-145 K (test code = 9378173885) 4.2 mmol/L 3.5-5.0 CL (test code = 6573023461) 118 mmol/L 98-108 H CO2 TOTAL (test code = 8776908083) 18 mmol/L 23-31 L AGAP (test code = 3327796472) 2-16 BUN (test code = 5732644543) 26 mg/dL 7-23 H GLUCOSE (test code = 6337404238) 83 mg/dL 70-110 CREATININE (test code = 1.45 mg/dL 0.50-1.04 H 2990452536) CALCIUM (test code = 6150955955) 8.6 mg/dL 8.6-10.6 eGFR (test code = 4677054913) mL/min/1.73m2 FABIO (test code = FABIO) Association [...] tests). Lab Interpretation (test code = Abnormal 82026-9) [facility] [id number] 06:31:49 Test Item Value Reference Interpretation Comments Range TROPONIN I (test 0.004 ng/mL See_Comment [Automated code = 6903739049) message] The system which generated this result [...] biotin. Lab Interpretation Normal (test code = 71447-3) [facility] [id number] 23:50:35 Test Item Value Reference Range Interpretation Comments TSH (test code = See_Comment [Automated message] 0285550925) The system [employer] generated this result transmitted ref erence range: 0.45 - 4 .70 mIU/L. The refe rence range was not u sed to interpret this result as normal/abnor mal. Lab Interpretation (test Normal code = 65836-9) [id number] 23:32:05 Test Item Value Reference Interpretation Comments Range TROPONIN I (test 0.006 ng/mL See_Comment [Automated code = 3129494458) message] The system which generated this result [...] biotin. Lab Interpretation Normal (test code = 55225-0) [facility] [id number] 23:18:23 Test Item Value Reference Range Interpretation Comments CK (test code = 6631769844) 186 U/L 33-194 Lab Interpretation (test code = Normal 30012-4) [facility] [id number] 22:26:51 Test Item Value Reference Interpretation Comments Range TROPONIN I (test 0.006 ng/mL See_Comment [Automated code = 0016068684) message] The system which generated this result [...] biotin. Lab Interpretation Normal (test code = 03327-1) [facility] Arterial Blood Gas.2022-01-11 19:28:36 Test Item Value Reference Range Interpretation Comments PH (test code = 2) 7.35-7.45 L PCO2 (test code = See_Comment L [Automat ed message] 4030197462) The system [employer] generated this result transmitted ref erence range: 35 - 45 mmHg. The reference r srikanth was not used to interpret this result as normal/abnor mal. PO2 (test code = See_Comment [Automated message] 2259382427) The system [employer] generated this result transmitted ref erence range: 80 - 100 mmHg. The reference r srikanth was not used to interpret this result as normal/abnor mal. HCO3 (test code = See_Comment L [Automate d message] 0167082215) The system [employer] generated this result transmitted ref erence range: 22 - 26 mEq/L. The reference r srikanth was not used to interpret this result as normal/abnor mal. BE (test code = See_Comment L [Automated message] 8391650727) The system [employer] generated this result transmitted ref erence range: -3.0 - 3 .0 mEq/L. The refe rence range was not u sed to interpret this result as normal/abnor mal. Lab Interpretation (test Abnormal code = 07861-7) [facility] METABOLIC PANEL (NA, K, CL, CO2, GLUCOSE, BUN, CREATININE, CA)2022-01-11 14:09:53 Test Item Value Reference Range Interpretation Comments NA (test code = 143 mmol/L 135-145 8587141490) K (test code = 3.7 mmol/L 3.5-5.0 3256453498) CL (test code = 115 mmol/L 98-108 H 7860201176) CO2 TOTAL (test code = 20 mmol/L 23-31 L 4528451898) AGAP (test code = 2-16 4235854986) BUN (test code = 47 mg/dL 7-23 H 4471955404) GLUCOSE (test code = 90 mg/dL 70-110 1656543051) CREATININE (test code = 1.98 mg/dL 0.50-1.04 H 6128676120) CALCIUM (test code = 8.2 mg/dL 8.6-10.6 L 1302161399) eGFR (test code = mL/min/1.73m2 2964109871) FABIO (test code = FABIO) Association of [...] tests). 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OLIC PANEL ([id number])2022-01-11 07:45:57 Test Item Value Reference Range Interpretation Comments NA (test code = 140 mmol/L 135-145 9719116909) K (test code = 3.6 mmol/L 3.5-5.0 2636382661) CL (test code = 108 mmol/L 98-108 5657023236) CO2 TOTAL (test code = 20 mmol/L 23-31 L 5488396046) AGAP (test code = 2-16 7909620814) BUN (test code = 57 mg/dL 7-23 H 0470791000) GLUCOSE (test code = 106 mg/dL 70-110 1089689978) CREATININE (test code = 3.04 mg/dL 0.50-1.04 H 0424271848) TOTAL BILI (test code = 0.4 mg/dL 0.1-1.3 0474484482) CALCIUM (test code = 9.9 mg/dL 8.6-10.6 8303316667) T PROTEIN (test code = 6.9 g/dL 6.3-8.2 4026730428) ALBUMIN (test code = 4.3 g/dL 3.5-5.0 0313202609) ALK PHOS (test code = 104 U/L 34-122 7157247285) ALTv (test code = 18 U/L 5-35 1742-6) AST(SGOT) (test code = 34 U/L 13-40 3265595993) eGFR (test code = mL/min/1.73m2 3324673526) FABIO (test code = FABIO) Association of [...] tests). Lab Interpretation Abnormal (test code = 74454-1) [facility] WITH [id number] 07:32:34 Test Item Value Reference Range Interpretation Comments WBC (test code = See_Comment H [Automated 6690-2) message] The sy stem which generated this [...] RDW-SD (test code = 45.0 fL 39.0-49.9 88286-5) RDW-CV (test code = 14.6 % 12.0-15.5 788-0) PLT (test code = See_Comment [Automated 777-3) message] The sy stem which generated this result transmitted reference range : 166 - 358 10*3/ ?L. The reference r srikanth was not used to interpret this result as normal/abnormal . MPV (test code = 8.8 fL 9.5-12.9 L 82258-1) NRBC/100 WBC (test See_Comment [Automat ed code = 8621566782) message] The system which generated this result transmitted reference range : 0.0 - 10.0 /100 WBCs. The refer ence range was not u sed to interpret th is result as normal/abnormal . NRBC x10^3 (test code <0.01 See_Comment [Auto mated = 6585609820) message] The s ystem which generated this result transmitted reference range : 10*3/?L. The reference range was not used to interpret this result as normal/abnormal . GRAN MAT (NEUT) % 77.8 % (test code = 770-8) IMM GRAN % (test code 0.40 % = 0718409570) LYMPH % (test code = 10.4 % 736-9) MONO % (test code = 8.3 % 5905-5) EOS % (test code = 2.7 % 713-8) BASO % (test code = 0.4 % 706-2) GRAN MAT x10^3(ANC) 8.77 10*3/uL 1.88-7.09 H (test code = 4889946388) IMM GRAN x10^3 (test 0.04 10*3/uL 0.00-0.06 code = 8629090802) LYMPH x10^3 (test code 1.17 10*3/uL 1.32-3.29 L = 731-0) MONO x10^3 (test code 0.93 10*3/uL 0.33-0.92 H = 742-7) EOS x10^3 (test code = 0.30 10*3/uL 0.03-0.39 711-2) BASO x10^3 (test code 0.04 10*3/uL 0.01-0.07 = 704-7) Lab Interpretation Abnormal (test code = 39567-0) [facility] [id number] 16:49:00Surgical Pathology Report Case: [id number] Authorizing Provider: Felix Banks MD Collected: 04/18/2020 02:34 PM Ordering Location: [address] Received: 04/20/2020 08:22 AM Service Pathologist: [...] see comment Signing Pathologist Direct Phone Line: [phone] signed by Keyona Collado MD on 04/21/2020 at 4:49 PMSpecimen C. The features are nonspecific and may represent reflux associated changesin the appropriate clinical and endoscopic setting.54358 x3, 67584Hnso deficiency anemia.A. DuodenumB. Gastric biopsyC. Esophagus biopsy [...] evaluated Immunohistochemistry technical testing was performed at [facility], Pathology Laboratory where it was developed and its performance characteristics were determined. It has not been cleared or approved by the U.S. Food and Drug Administration. The FDA has determined that such clearance or approval is not necessary. The test is used for clinical purposes. It should not be regarded as investigational or for research. This laboratory iscertified under the Clinical Laboratory Improvement Amendments of 1988 (CLIA-88) as qualified to perform high complexity clinical laboratory testing.BASIC METABOLIC [id number] 06:10:00 Test Item Value Reference Range Interpretation [...] S NOT APPLICABLE FOR DIALYSIS PATIEN TS. Sales Driver ID - PIAYA LCBC (HEMOGRAM ONLY)2020-04-19 05:45:00 [...] WBC 0-0 (BEAKER) (test code = 413) [id number] 05:41:00 Test Item Value Reference Range Interpretation Comments CORTISOL, TOTAL (BEAKER) (test code 7.1 ug/dL 3.7-19.4 = 2755) Sales Driver ID - PIAYA LBASIC METABOLIC [id number] 04:01:00 Test Item Value Reference Range Interpretation [...] S NOT APPLICABLE FOR DIALYSIS PATIEN TS. Sales Driver ID - EDASIHEMOGLOBIN AND [id number] 03:00:00 Test Item Value Reference Range Interpretation Comments HEMOGLOBIN (BEAKER) (test code = 7.7 GM/DL 11.2-15.7 L 410) HEMATOCRIT (BEAKER) (test code = 25.7 % 34.1-44.9 L 411) Sales Driver ID - [id number] (HEMOGRAM ONLY)2020-04-18 03:00:00 Test [...] 0-0 (BEAKER) (test code = 413) SARS-COV2/RT-PCR ([facility])2020-04-17 14:53:00 Test Item Value Reference Range Interpretation Comments SARS-COV2/RT-PCR (test Negative Not Detected, Negative, code = 7196516) See external report for linked test SARS-COV-2 PERFORMING LAB [facility] (test code = 4313852) Negative result for this test determines that [...] 564(g) of the Act.Fact Sheet for Healthcare Providers:https://www.[employer]/sites/default/files/product/documents/Fact_Shee n_NS_Yagifoepf_Wjdq_PYLM-DfD-8.pdfFact Sheet for Healthcare Patients:https://www.[employer]/sites/default/files/product/ documents/Qazz_Zuwaf_Rqmewiwh_Nzvz_VWIH-YnF-4.pdfPerforming Laboratory:[place] [address].[place], [place] [address]RT, BRAIN, WITHOUT [id number] 11:46:00FINAL REPORT CT, BRAIN, WITHOUT CONTRAST INDICATION: [...] is recommended for further characterization. Signed: JR Elvia, Fox Bass Verified Date/Time: 04/17/2020 11:46:51 ReadingLocation: [facility] B1 C013V Neuro Reading Room ONIN [id number] 10:30:00 Test Item Value Reference Range Interpretation [...] failure, acidosis, acute neurological disease, and persistent tachyarrhythmia.Sales Driver ID - [id number] 10:24:00 Test Item Value Reference Range Interpretation Comments LIPASE (BEAKER) (test code = 749) 30 U/L 8-78 Sales Driver ID - NTPCOMPREHENSIVE METABOLIC [id number] 10:17:00 Test Item Value Reference Range Interpretation [...] S NOT APPLICABLE FOR DIALYSIS PATIEN TS. Sales Driver ID - [id number] 09:59:00 Test Item Value Reference Range Interpretation Comments FERRITIN (BEAKER) (test code = 361) < ng/mL 5.00-275.00 L Sales Driver ID - NTPTSH/FREE T4 IF [id number] 09:50:00 Test Item Value Reference Range Interpretation Comments THYROID STIMULATING HORMONE 4.140 uIU/mL 0.350-4.940 (BEAKER) (test code = 772) Sales Driver ID - NTPVITAMIN B12 AND [id number] 09:50:00 Test Item Value Reference Range Interpretation Comments VITAMIN B12 (BEAKER) (test code = 332 pg/mL 213-816 774) FOLATE (BEAKER) (test code = 362) 6.20 ng/mL >=7.00 L Sales Driver ID - NTPCBC W/PLT COUNT & AUTO [id number] 09:28:00 Test Item Value Reference Range Interpretation [...] % 20-55 L (test code = 2590) Sales Driver ID - NTPPROTHROMBIN [id number] 09:10:00 Test Item Value Reference Range Interpretation [...] mechanical heart valves.CBC W/PLT COUNT & AUTO [id number] 07:04:00 Test Item Value Reference Range Interpretation [...] (BEAKER) (test code = 2801) BASIC METABOLIC [id number] 06:54:00 Test Item Value Reference Range Interpretation [...] APPLICABLE FOR DIALYSIS PATIEN TS. HEMOGLOBIN AND [id number] 23:13:00 Test Item Value Reference Range Interpretation Comments HEMOGLOBIN (BEAKER) (test code = 7.8 GM/DL 11.2-15.7 L 410) HEMATOCRIT (BEAKER) (test code = 25.1 % 34.1-44.9 L 411) HEMOGLOBIN AND [id number] 18:29:00 Test Item Value Reference Range Interpretation Comments HEMOGLOBIN (BEAKER) (test code = 7.6 GM/DL 11.2-15.7 L 410) HEMATOCRIT (BEAKER) (test code = 24.4 % 34.1-44.9 L 411) HEMOGLOBIN AND [id number] 09:57:00 Test Item Value Reference Range Interpretation Comments HEMOGLOBIN (BEAKER) (test code = 7.2 GM/DL 11.2-15.7 L 410) HEMATOCRIT (BEAKER) (test code = 23.2 % 34.1-44.9 L 411) [id number] 05:50:00 Test Item Value Reference Range Interpretation Comments PHOSPHORUS (BEAKER) (test code = 2.9 mg/dL 2.3-4.7 604) [id number] 05:50:00 Test Item Value Reference Range Interpretation Comments MAGNESIUM (BEAKER) (test code = 2.0 mg/dL 1.6-2.6 627) BASIC METABOLIC [id number] 05:50:00 Test Item Value Reference Range Interpretation [...] APPLICABLE FOR DIALYSIS PATIEN TS. HEPATIC FUNCTION [id number] 05:50:00 Test Item Value Reference Range Interpretation [...] 6-55 347) CBC W/PLT COUNT & AUTO [id number] 05:40:00 Test Item Value Reference Range Interpretation [...] PERCENT (BEAKER) (test code = 2801) PROTHROMBIN [id number] 05:29:00 Test Item Value Reference Range Interpretation [...] wiht mechanical heart valves.RAD, ABDOMEN/KUB, 1 VIEW [id number] 02:43:00Reason for exam:->bloatingShould this be performed at [...] Verified Date/Time: 06/16/2019 02:43:11 RAPID INFLUENZA A&B [id number] 01:49:00 Test Item Value Reference Range Interpretation Comments RAPID INFLUENZA A AG (BEAKER) Negative Negative, Inconclusive (test code = 1622) RAPID INFLUENZA B AG (BEAKER) Negative Negative, Inconclusive (test code = 1623) RAD, CHEST, 1 VIEW, NON [id number] 01:08:00Reason for exam:->coughShould this be performed at [...] Guille Barragan Verified Date/Time: 06/16/2019 01:08:45 BLOOD [id number] 08:00:00 Test Item Value Reference Range Interpretation Comments CULTURE (BEAKER) (test No growth in 5 days code = 1095) BLOOD [id number] 20:01:00 Test Item Value Reference Range Interpretation Comments CULTURE (BEAKER) (test No growth in 5 days code = 1095) TISSUE [id number] 12:58:00Surgical Pathology Report Case: [id number] Authorizing Provider: Len Waggoner, Collected: 06/10/2019 1111 Ordering Location: [place] [address] ICU Received: 06/10/2019 1601 Pathologist: Fernando Plascencia [...] DYSPLASIA/ MALIGNANCY Signing Pathologist Direct Phone Line: [phone] signed by Fernando Plascencia MD on 06/12/2019 at 12:58 PMB. Detached/ loosely adherent refractile foreign material is seen in the biopsy, likely representing pill fragments. Clinical and endoscopic correlation is recommended.[id number] bleedingA. Specimen is received in formalin labeled [...] evaluated Immunohistochemistry technical testing was performed at [facility], Pathology Laboratory where it was [...] certified under the Clinical Laboratory Improvement Amendments mn7481 (CLIA-88) as qualified to perform high complexity clinical laboratory testing.POCT-GLUCOSE [id number] 11:45:00 Test Item Value Reference Range Interpretation Comments POC-GLUCOSE METER 85 mg/dL 70-[address] [facility] ([facility]) (test code = AUDI Pollock [facility] [address] 1538) T4, [id number] 08:58:00 Test Item Value Reference Range Interpretation Comments FREE T4 ([facility]) (test code = 655) 0.58 ng/dL 0.70-1.48 L POCT-GLUCOSE [id number] 08:02:00 Test Item Value Reference Range Interpretation Comments POC-GLUCOSE METER 91 mg/dL 70-[address] [facility] (BEAKER) (test code = AUDI [place] [id number] 9309) TSH/FREE T4 IF [id number] 06:57:00 Test Item Value Reference Range Interpretation [...] WBC 0-0 (BEAKER) (test code = 413) [id number] 06:42:00 Test Item Value Reference Range Interpretation Comments PHOSPHORUS (BEAKER) (test code = 2.7 mg/dL 2.3-4.7 604) [id number] 06:42:00 Test Item Value Reference Range Interpretation Comments MAGNESIUM (BEAKER) (test code = 2.0 mg/dL 1.6-2.6 627) COMPREHENSIVE METABOLIC [id number] 06:42:00 Test Item Value Reference Range Interpretation [...] NOT APPLICABLE FOR DIALYSIS PATIEN TS. POCT-GLUCOSE [id number] 23:02:00 Test Item Value Reference Range Interpretation Comments POC-GLUCOSE METER 113 mg/dL 70-[address] [facility] ([facility]) (test code = AUDI Pollock [facility] 9087) [address] T3, [id number] 18:30:00 Test Item Value Reference Range Interpretation Comments T3 FREE (BEAKER) < pg/mL 1.71-3.71 L Testing per formed at [facility] (test code = 908) [facility] [place], [address] [place] [id number] 18:30:00 Test Item Value Reference Range Interpretation Comments T3 TOTAL ([facility]) 27 ng/dL 48-159 L Testing pe rformed at (test code = 656) [facility] [place], [facility] [place] [address] POCT-GLUCOSE [id number] 18:14:00 Test Item Value Reference Range Interpretation Comments POC-GLUCOSE METER 106 mg/dL 70-110 TESTED AT [place] [address] ([facility]) (test code = [place] [address]) [address] HEMOGLOBIN AND [id number] 18:09:00 Test Item Value Reference Range Interpretation Comments HEMOGLOBIN ([facility]) (test code = 8.4 GM/DL 11.2-15.7 L 410) HEMATOCRIT ([facility]) (test code = 26.4 % 34.1-44.9 L 411) POCT-GLUCOSE [id number] 12:28:00 Test Item Value Reference Range Interpretation Comments POC-GLUCOSE METER 132 mg/dL 70-110 H TESTED AT [place] [address] ([facility]) (test code = [place] [address]8928) [address] CORTISOL,60 [id number] 10:34:00 Test Item Value Reference Range Interpretation Comments CORTISOL BASELINE NETWORKED 8.4 mcg/dL ([facility]) (test code = 2307) CORTISOL 30 MINUTE NETWORKED 16.1 mcg/dL ([facility]) (test code = 2308) CORTISOL, 60 MINUTE ([facility]) 18.2 ug/dL (test code = 1805) ACTH [...] serum cortisollevel 60 minutes after cosyntropin administration.CORTISOL,30 [id number] 09:35:00 Test Item Value Reference Range Interpretation [...] a study by Stu et al (VIANEY 2000,283(8):4771-45), the ACTH Stimulation Test provides important prognostic [...] Draw serum cortisollevel 60 minutes after cosyntropin administration.CORTISOL,[id number] 09:20:00 Test Item Value Reference Range Interpretation [...] Draw serum cortisollevel 60 minutes after cosyntropin administration.[id number] 07:16:00 Test Item Value Reference Range Interpretation Comments MAGNESIUM (BEAKER) (test code = 2.0 mg/dL 1.6-2.6 627) COMPREHENSIVE METABOLIC [id number] 07:16:00 Test Item Value Reference Range Interpretation [...] S NOT APPLICABLE FOR DIALYSIS PATIEN TS. [id number] 07:01:00 Test Item Value Reference Range Interpretation [...] (test code = 2590) VITAMIN B12 AND [id number] 06:14:00 Test Item Value Reference Range Interpretation Comments VITAMIN B12 (BEAKER) (test code = 285 pg/mL 213-816 774) FOLATE (BEAKER) (test code = 362) 6.3 ng/mL >=7.0 L [id number] 06:05:00 Test Item Value Reference Range Interpretation Comments CORTISOL, TOTAL (BEAKER) (test code 3.2 ug/dL 3.7-19.4 L = 2755) HIV-1 ANTIGEN WITH HIV-1/2 [id number] 06:04:00 Test Item Value Reference Range Interpretation Comments HIV-1 ANTIGEN WITH HIV 1\\T\\2 Nonreactive Nonreactive ANTIBODY (2) (BEAKER) (test code = 2586) [id number] 06:03:00 Test Item Value Reference Range Interpretation [...] 0-0 (BEAKER) (test code = 413) RETICULOCYTE [id number] 05:08:00 Test Item Value Reference Range Interpretation Comments RETICULOCYTE COUNT PCT (BEAKER) (test 2.9 % 0.5-1.7 H code = 575) POCT-GLUCOSE [id number] 22:01:00 Test Item Value Reference Range Interpretation Comments POC-GLUCOSE METER 132 mg/dL 70-[address] [facility] (BEAKER) (test code = [place] 1538) [address] HEMOGLOBIN AND [id number] 21:02:00 Test Item Value Reference Range Interpretation Comments HEMOGLOBIN (BEAKER) (test code = 8.1 GM/DL 11.2-15.7 L 410) HEMATOCRIT (BEAKER) (test code = 25.5 % 34.1-44.9 L 411) T4, [id number] 11:38:00 Test Item Value Reference Range Interpretation Comments FREE T4 (BEAKER) (test code = 655) 0.46 ng/dL 0.70-1.48 L TSH/FREE T4 IF [id number] 11:00:00 Test Item Value Reference Range Interpretation Comments THYROID STIMULATING HORMONE 34.88 uIU/mL 0.35-4.94 H (BEAKER) (test code = 772) HEMOGLOBIN AND [id number] 10:21:00 Test Item Value Reference Range Interpretation Comments HEMOGLOBIN (BEAKER) (test code = 8.9 GM/DL 11.2-15.7 L 410) HEMATOCRIT (BEAKER) (test code = 27.3 % 34.1-44.9 L 411) [id number] 05:22:00 Test Item Value Reference Range Interpretation Comments PHOSPHORUS (BEAKER) (test code = 2.9 mg/dL 2.3-4.7 604) [id number] 05:22:00 Test Item Value Reference Range Interpretation Comments MAGNESIUM (BEAKER) (test code = 2.0 mg/dL 1.6-2.6 627) COMPREHENSIVE METABOLIC [id number] 05:22:00 Test Item Value Reference Range Interpretation [...] U/L 29-200 code = 380) LACTIC ACID, [id number] 05:09:00 Test Item Value Reference Range Interpretation [...] 0-0 (BEAKER) (test code = 413) POCT-GLUCOSE [id number] 00:51:00 Test Item Value Reference Range Interpretation Comments POC-GLUCOSE METER 88 mg/dL 70-[address] [facility] (BEAKER) (test code = [place] [address] 1178) CHLORIDE, RANDOM [id number] 19:35:00 Test Item Value Reference Range Interpretation Comments CHLORIDE URINE (BEAKER) (test code = 80 meq/L 682) Reference Range: No NormalsCREATININE, RANDOM [id number] 19:35:00 Test Item Value Reference Range Interpretation Comments CREATININE URINE (BEAKER) (test 74.8 mg/dL code = 375) Reference Range: No NormalsSODIUM, RANDOM [id number] 19:35:00 Test Item Value Reference Range Interpretation Comments SODIUM URINE (BEAKER) (test code = 97 meq/L 243) Reference Range: No NormalsURINALYSIS W/ REFLEX URINE [id number] 18:59:00 Test Item Value Reference Range Interpretation [...] 514) SOURCE(BEAKER) (test code = 2795) POCT-GLUCOSE [id number] 18:16:00 Test Item Value Reference Range Interpretation Comments POC-GLUCOSE METER 71 mg/dL 70-[address] [facility] (BEAKER) (test code = [place] [address] 1538) T4, [id number] 18:06:00 Test Item Value Reference Range Interpretation Comments FREE T4 (BEAKER) (test code = 655) < ng/dL 0.70-1.48 L HEPATIC FUNCTION [id number] 17:52:00 Test Item Value Reference Range Interpretation [...] 14 U/L 6-55 347) TSH/FREE T4 IF [id number] 17:49:00 Test Item Value Reference Range Interpretation Comments THYROID STIMULATING HORMONE 125.05 uIU/mL 0.35-4.94 H (BEAKER) (test code = 772) [id number] 16:49:00 Test Item Value Reference Range Interpretation Comments MAGNESIUM (BEAKER) (test code = 1.8 mg/dL 1.6-2.6 627) BASIC METABOLIC [id number] 16:49:00 Test Item Value Reference Range Interpretation [...] S NOT APPLICABLE FOR DIALYSIS PATIEN TS. [id number] 16:41:00 Test Item Value Reference Range Interpretation [...] INR is2.5-3.5 for patients wiht mechanical heart valves.[id number] 16:41:00 Test Item Value Reference Range Interpretation [...] code = 413) RAD, ABDOMEN/KUB, 1 VIEW [id number] 16:14:00Reason for exam:->abdominal distentionShould this be performed [...] MDReport Verified Date/Time: 06/09/2019 16:14:10 Reading Location: [address] Transitional Reading Room Electronicallysigned by: MOSHE GUTIERREZ M.D. on 06/09/2019 04:14 PM
[2022-01-29 14:56] LABS: Absolute Lymphocytes (CBC) 1.5 K/uL (0.7-4.9); Hematocrit 36.3 % (36.0-45.0); Lymphocytes % 19.6 % (15.3-44.8); MPV 6.9 fL (7.6-11.3); RBC Red Blood Cell Count 4.21 M/uL (3.86-4.86)
[2022-01-29 15:05] LABS: Albumin 3.6 g/dL (3.4-5.0); Bilirubin Total 0.2 mg/dL (0.2-1.0); Potassium 3.9 mmol/L (3.5-5.1); Protein, Total 6.8 g/dL (6.4-8.2); Troponin High Sensitivity 7.9 pg/mL (<58.9)
[2022-01-29] MEDS ORDERED: MAGNES/ALUMIN/SIMET 30ML UCUP ONE (15:08)
[2022-01-29] MEDS ORDERED: FAMOTIDINE 20 MG TAB ONE (15:09)
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
--- NOTE | 2022-01-29 16:57 | ER ---
Nurse's Notes [facility] Name: Rhea Carballo Age: 66 yrs Sex: Female : 1955 Arrival Date: 01/29/2022 Time: 12:42 Bed 11 Private MD: Diagnosis: Acute gastritis Presentation: 01/29 13:19 Chief complaint: Patient states: sharp pin ins stomach , when she eats it feels like it iw gets stuck , went to the bathroom today and her stool was real black, has hx of gastric ulcer, also has a recent sternum fracture. Coronavirus screen: At this time, the client does not indicate any symptoms associated with coronavirus-19. Ebola Screen: Patient negative for fever greater than or equal to 101.5 degrees Fahrenheit, and additional compatible Ebola Virus Disease symptoms Patient denies exposure to infectious person. Patient denies travel to an Ebola-affected area in the 21 days before illness onset. No symptoms or risks identified at this time. Initial Sepsis Screen: Does the patient meet any 2 criteria? No. Patient's initial sepsis screen is negative. Does the patient have a suspected source of infection? No. Patient's initial sepsis screen is negative. Risk Assessment: Do you want to hurt yourself or someone else? Patient reports no desire to harm self or others. Onset of symptoms was January 29, 2022. 13:19 Method Of Arrival: Ambulatory iw 13:19 Acuity: МАРИНА 3 iw Historical: - Allergies: 13:21 No Known Allergies; iw - Home Meds: 13:21 BuSpar Oral [Active]; levothyroxine oral [Active]; lisinopril Oral [Active]; Wellbutrin iw SR 150 mg oral SR12 [Active]; - PMHx: 13:21 chronic back pain; Depression; GI Bleed; Hypothyroidism; SEROTONIN SYNDROME; iw - Social history:: Smoking status: Patient reports the use of cigarette tobacco products, denies chronic smoking, but will smoke occasionally. Screenin:23 Abuse screen:. Nutritional screening: No deficits noted. Tuberculosis screening: No iw symptoms or risk factors identified. Fall Risk None identified. Assessment: 13:22 General: Appears in no apparent distress. Behavior is cooperative, agitated, anxious. iw Pain: Complains of pain in chest. Pain: Cardiovascular: Patient's skin is warm and dry. Respiratory: Respiratory effort is even, unlabored, Respiratory pattern is regular, symmetrical. GI: Reports rectal bleeding. Vital Signs: 13:19 BP 159 / 81; Pulse 100; Resp 16; Temp 98.8; Pulse Ox 100% on R/A; iw ED Course: 12:42 Patient arrived in ED. as 13:21 Triage completed. iw 13:22 Arm band placed on. iw 13:23 No provider procedures requiring assistance completed. Patient maintains SpO2 iw saturation greater than 95% on room air. 13:36 Barbi Jones PA is PHCP. en 13:36 Marcio Benedict MD is Attending Physician. en 13:56 Christiana Araiza, RN is Primary Nurse. iw 14:41 Initial lab(s) drawn, by me, sent to lab. Inserted saline lock: 20 gauge in left em1 antecubital area, using aseptic technique. Blood collected. Administered Medications: 15:12 Drug: Maalox (aluminum hydroxide, magnesium hydroxide, simethicone) Suspension (200 iw mg-200 mg-20 mg/5 mL) 30 ml Route: PO; 15:30 Follow up: Response: No adverse reaction iw 15:12 Drug: Pepcid (famotidine) 10 mg Route: PO; iw 15:30 Follow up: Response: No adverse reaction iw Point of Care Testing: Guaiac: 16:35 Stool Guaiac: Negative; Stool Hemoccult Control: Pass; en Outcome: 16:56 Discharge ordered by . en 17:20 Patient left the ED. iw Signatures: Jessica Champagne as Christiana Araiza, RN RN iw Boaz Champagne em1 Barbi Jones PA PA en
[2022-01-29 20:45] VITALS: BP 159/81; TEMP 98.8; O2SAT 100
--- NOTE | 2022-01-30 14:47 | EKG ---
Test Date: 2022-01-29 Test Time: 16:58:00 Graphic Arts Instructor: KATHY MEASUREMENT RESULTS: Intervals: Rate: 81 GA: 130 QRSD: 80 QT: 386 QTc: 448 Tie Siding: P: 72 GA: 130 QRS: 60 T: 58 INTERPRETIVE STATEMENTS: Normal sinus rhythm Minimal voltage criteria for LVH, may be normal variant Borderline ECG Compared to ECG 10/16/2021 13:03:38 Sinus tachycardia no longer present Atrial abnormality no longer present Electronically Signed On 01-30-22 14:45:56 CDT by Noel Samuels
== END 2022-01-29 17:20 | disposition home or self-care (01) ==
LOC: ER 12:39
DX: K29.00 Acute gastritis without bleeding (principal); E03.9 Hypothyroidism, unspecified; G89.29 Other chronic pain; F32.A Depression, unspecified; F17.210 Nicotine dependence, cigarettes, uncomplicated
CPT/HCPCS: 36415; 80053; 84484; 85025; 93005; 99284

== ENCOUNTER 2022-03-30 07:17 | Inpatient (IN) | payer SELFPAY ==
[2022-03-30 08:13] LABS: Absolute Lymphocytes (CBC) 1.2 K/uL (0.7-4.9); Hematocrit 25.4 % (36.0-45.0); Lymphocytes % 15.7 % (15.3-44.8); MCV 86.3 fL (80-100); MPV 7.1 fL (7.6-11.3); RBC Red Blood Cell Count 2.94 M/uL (3.86-4.86)
[2022-03-30 08:18] LABS: Protime INR 1.24
[2022-03-30 08:29] LABS: Bilirubin Direct 0.1 mg/dL (0-0.2); Bilirubin Total 0.3 mg/dL (0.2-1.0); Magnesium 2.1 mg/dL (1.8-2.4); Protein, Total 5.6 g/dL (6.4-8.2); Troponin High Sensitivity 7.5 pg/mL (<58.9)
[2022-03-30] MEDS ORDERED: NA CHLORIDE 0.9% 1,000 ML ONE (08:29)
[2022-03-30] MEDS ORDERED: FAMOTIDINE 20 MG/2 ML VIAL IV ONE (08:29)
[2022-03-30] MEDS ORDERED: LORazepam 2 MG/ML VIAL ONE ×2 (08:29→09:26)
--- NOTE | 2022-03-30 09:21 | RAD REPORT ---
EXAM DESCRIPTION: Stefani Single View03/30/2022 8:29 am CLINICAL HISTORY: Abdominal pain COMPARISON: 2019 FINDINGS: The lungs appear clear of acute infiltrate. The heart is normal size IMPRESSION: No acute abnormalities displayed
--- NOTE | 2022-03-30 09:36 | EDPHYS ---
Physician Documentation [facility] Name: Rhea Carballo Age: 66 yrs Sex: Female : 1955 Arrival Date: 03/30/2022 Time: 07:21 Bed 6 Private MD: ED Physician Sarwat Foss HPI: 03/30 09:26 This 66 yrs old Female presents to ER via EMS with complaints of weak, sob brooke and dizzy. 09:26 anxious , dizzy, nausea and pale. The patient presents with dizziness. Onset: The brooke symptoms/episode began/occurred 2 day(s) ago. Context: occurred at an unknown location. Modifying factors: The symptoms are alleviated by nothing, the symptoms are aggravated by standing up, changing position. Associated signs and symptoms: Pertinent positives: near-syncope, numbness, shortness of breath, vomiting. Severity of symptoms: At their worst the symptoms were mild in the emergency department the symptoms are unchanged. Patient's baseline: Neuro: alert and fully oriented, Motor: no deficits, Ambulation: walks without assistance, Speech: normal. Historical: - Allergies: 07:30 hydrocodone; jd3 - Home Meds: 07:30 BuSpar Oral [Active]; levothyroxine oral [Active]; lisinopril Oral [Active]; Wellbutrin jd3 SR 150 mg Oral tab [Active]; - PMHx: 07:30 chronic back pain; Depression; GI Bleed; Hypothyroidism; SEROTONIN SYNDROME; jd3 - Immunization history:: Adult Immunizations up to date, Client reports having NOT received the Covid vaccine. - Social history:: Smoking status: Patient reports the use of cigarette tobacco products, denies chronic smoking, but will smoke occasionally. - Family history:: not pertinent. ROS: 09:26 Constitutional: Negative for fever, chills, and weight loss, Eyes: Negative for injury, brooke pain, redness, and discharge, ENT: Negative for injury, pain, and discharge, Neck: Negative for injury, pain, and swelling, Cardiovascular: Negative for chest pain, palpitations, and edema, Respiratory: Negative for shortness of breath, cough, wheezing, and pleuritic chest pain, Abdomen/GI: Negative for abdominal pain, nausea, vomiting, diarrhea, and constipation, Back: Negative for injury and pain, : Negative for injury, bleeding, discharge, and swelling, Psych: Negative for depression, anxiety, suicide ideation, homicidal ideation, and hallucinations, Allergy/Immunology: Negative for hives, rash, and allergies, Endocrine: Negative for neck swelling, polydipsia, polyuria, polyphagia, and marked weight changes, Hematologic/Lymphatic: Negative for swollen nodes, abnormal bleeding, and unusual bruising. 09:26 MS/extremity: Positive for 09:26 Skin: Positive for diaphoresis, pallor. Exam: 09:26 Constitutional: This is a well developed, well nourished patient who is awake, alert, brooke and in no acute distress. Head/Face: Normocephalic, atraumatic. Eyes: Pupils equal round and reactive to light, extra-ocular motions intact. Lids and lashes normal. Conjunctiva and sclera are non-icteric and not injected. Cornea within normal limits. Periorbital areas with no swelling, redness, or edema. ENT: Nares patent. No nasal discharge, no septal abnormalities noted. Tympanic membranes are normal and external auditory canals are clear. Oropharynx with no redness, swelling, or masses, exudates, or evidence of obstruction, uvula midline. Mucous membranes moist. Neck: Trachea midline, no thyromegaly or masses palpated, and no cervical lymphadenopathy. Supple, full range of motion without nuchal rigidity, or vertebral point tenderness. No Meningismus. Chest/axilla: Normal chest wall appearance and motion. Nontender with no deformity. No lesions are appreciated. Cardiovascular: Regular rate and rhythm with a normal S1 and S2. No gallops, murmurs, or rubs. Normal PMI, no JVD. No pulse deficits. Respiratory: Lungs have equal breath sounds bilaterally, clear to auscultation and percussion. No rales, rhonchi or wheezes noted. No increased work of breathing, no retractions or nasal flaring. Back: No spinal tenderness. No costovertebral tenderness. Full range of motion. Female : Normal external genitalia. MS/ Extremity: Pulses equal, no cyanosis. Neurovascular intact. Full, normal range of motion. Neuro: Awake and alert, GCS 15, oriented to person, place, time, and situation. Cranial nerves II-XII grossly intact. Motor strength 5/5 in all extremities. Sensory grossly intact. Cerebellar exam normal. Normal gait. Psych: Awake, alert, with orientation to person, place and time. Behavior, mood, and affect are within normal limits. 09:26 ECG was reviewed by the Attending Physician. 09:26 Abdomen/GI: Inspection: abdomen appears normal, Bowel sounds: normal, Palpation: soft, nontender, Rectal exam: rectal tone normal, Stool: normal, guaiac negative, hemorrhoid(s), are not appreciated, mass, is not appreciated, swelling, is not appreciated, tenderness, is not appreciated, Liver: no appreciated palpable abnormalities, Hernia: not appreciated. Vital Signs: 07:31 BP 97 / 59; Pulse 88; Resp 18; Temp 98(TE); Pulse Ox 100% on R/A; Weight 61.23 kg (R); jd3 Height 5 ft. 7 in. (170.18 cm) (R); Pain 8/10; 09:11 BP 99 / 52; Pulse 85; Resp 16 S; Pulse Ox 100% on R/A; jd3 09:55 BP 99 / 60; Pulse 81; Resp 16; Pulse Ox 100% on R/A; jd3 10:57 BP 90 / 52; Pulse 80; Resp 16; Pulse Ox 100% on R/A; jd3 12:44 BP 97 / 53; Pulse 81; Resp 16; Pulse Ox 100% on R/A; jd3 14:00 BP 99 / 62; Pulse 82; Resp 19; Pulse Ox 100% on R/A; jd3 15:42 BP 106 / 51; Pulse 78; Resp 17; Pulse Ox 100% on R/A; jd3 07:31 Body Mass Index 21.14 (61.23 kg, 170.18 cm) j Procedures: 17:00 Peripheral line: by aseptic technique a peripheral line was placed in the right brooke external jugular vein. MDM: 07:27 Patient medically screened. [facility] 09:32 Differential Diagnosis altered mental status. Differential diagnosis: cardiac brooke arrhythmia, generalized weakness, GI bleed, hypovolemia, idiopathic dizziness, near-syncope. Data reviewed: vital signs, nurses notes, lab test result(s), EKG, radiologic studies, plain films. Data interpreted: conveyor monitor: rate is 85 beats/min, Pulse oximetry: on room air. Test interpretation: by ED physician or midlevel provider: ECG, plain radiologic studies. Counseling: I had a detailed discussion with the patient and/or guardian regarding: the historical points, exam findings, and any diagnostic results supporting the discharge/admit diagnosis, lab results, radiology results, the need for further work-up and treatment in the hospital. 03/30 07:28 Order name: Basic Metabolic Panel; Complete Time: 09:09 [facility] 03/30 07:28 Order name: CBC with Diff; Complete Time: 09:09 [facility] 03/30 07:28 Order name: LFT's; Complete Time: 09:09 [facility] 03/30 07:28 Order name: Magnesium; Complete Time: 09:09 [facility] 03/30 07:28 Order name: NT PRO-BNP; Complete Time: 09:09 [facility] 03/30 07:28 Order name: PT-INR; Complete Time: 09: [facility] 03/30 07:28 Order name: Troponin HS; Complete Time: 09:09 [facility] 03/30 07:28 Order name: Lipase; Complete Time: 09:09 [facility] 03/30 09:20 Order name: SARS-COV-2 RT PCR (Document "Date of Onset" if Symptomatic) [facility] 03/30 12:08 Order name: Urine Drug Screen [facility] 03/30 13:00 Order name: Urinalysis EDUT 03/30 13:00 Order name: Basic Metabolic Panel [facility]UT 03/30 13:00 Order name: Basic Metabolic Panel [facility] 03/30 07:28 Order name: XRAY Chest (1 view); Complete Time: 11:16 [facility] 03/30 09:37 Order name: CT Head C Spine; Complete Time: 11:16 [facility] 03/30 13:00 Order name: CBC with Automated Diff EDUT 03/30 13:00 Order name: CBC with Automated Diff [facility]UT 03/30 13:00 Order name: Lipid Profile [facility]UT 03/30 13:00 Order name: Lipid Profile [facility]UT 03/30 13:00 Order name: Magnesium EDMS 03/30 13:00 Order name: Magnesium EDMS 03/30 13:00 Order name: Phosphorus EDMS 03/30 13:00 Order name: Phosphorus EDMS 03/30 13:00 Order name: T4 Free EDMS 03/30 13:00 Order name: T4 Free EDMS 03/30 13:00 Order name: Thyroid Stimulating Hormone EDMS 03/30 13:00 Order name: Thyroid Stimulating Hormone EDMS 03/30 13:00 Order name: Cortisol EDMS 03/30 13:00 Order name: Cortisol [facility] 03/30 07:28 Order name: EKG; Complete Time: 07:29 [facility] 03/30 07:28 Order name: Cardiac monitoring; Complete Time: 07:43 [facility] 03/30 07:28 Order name: EKG - Nurse/Tech; Complete Time: 08:11 [facility] 03/30 07:28 Order name: IV Saline Lock; Complete Time: 08:10 [facility] 03/30 07:28 Order name: Labs collected and sent; Complete Time: 08:10 [facility] 03/30 07:28 Order name: O2 Per Protocol; Complete Time: 07:43 [facility] 03/30 07:28 Order name: O2 Sat Monitoring; Complete Time: 07:43 [facility] 03/30 13:00 Order name: Patient Safety Orders [facility] 03/30 13:00 Order name: Physical Therapy Consult [facility] 03/30 13:00 Order name: NPO EDUT EC:26 Rate is 73 beats/min. Rhythm is regular. QRS [place] is Normal. HI interval is normal. QRS brooke interval is normal. QT interval is normal. No Q waves. T waves are Normal. No ST changes noted. Clinical impression: NSR w/ Non-specific ST/T Changes and No evidence of ischemia. Interpreted by me. Reviewed by me. Administered Medications: 08:30 Drug: NS 0.9% 1000 ml Route: IV; Rate: 125 ml/hr; Site: left hand; jd3 19:03 Follow up: Response: No adverse reaction; IV Status: Completed infusion jd3 08:30 Drug: Ativan (LORazepam) 1 mg Route: IVP; Site: left hand; jd3 09:30 Follow up: Response: No adverse reaction; RASS: Restless (+1) jd3 08:30 Drug: Pepcid (famotidine) 20 mg Route: IVP; Site: left hand; jd3 09:30 Follow up: Response: No adverse reaction jd3 09:32 Drug: Ativan (LORazepam) 1 mg Route: IVP; Site: left antecubital; jd3 10:00 Follow up: Response: No adverse reaction; RASS: Drowsy (-1) jd3 09:53 Drug: ProTONIX (pantoprazole) 40 mg Route: IVP; Site: left antecubital; jd3 10:50 Follow up: Response: No adverse reaction jd3 Disposition Summary: 03/30/22 09:36 Hospitalization Ordered Hospitalization Status: Observation brooke Provider: Napoleon Oneil cha Location: Telemetry/MedSurg (observation) brooke Condition: Fair brooke Problem: new brooke Symptoms: have improved brooke Bed/Room Type: Standard brooke Room Assignment: 201(03/30/22 18:50) dw Diagnosis - Anemia, unspecified brooke - Weakness brooke - Syncope Near brooke - Unspecified kidney failure - acute on chronic brooke Forms: - Medication Reconciliation Form brooke - SBAR form brooke Signatures: Dispatcher [employer] EDMS Sonja Sheridan RN RN Sarwat Madrid MD MD cha Davies, Jonathon RN RN jd3 Corrections: (The following items were deleted from the chart) 13:00 09:14 TYPE AND SCREEN+[id number].BRZ ordered. EDUT EDUT 18:50 09:36 brooke dw
--- NOTE | 2022-03-30 09:36 | ER ---
Nurse's Notes [facility] Name: Rhea Carballo Age: 66 yrs Sex: Female : 1955 Arrival Date: 03/30/2022 Time: 07:21 Bed 6 Private MD: Diagnosis: Anemia, unspecified;Weakness;Syncope Near;Unspecified kidney failure-acute on chronic Presentation: 03/30 07:26 Chief complaint: EMS states: "we were called out by the pt's son that was reporting jd3 that his mom was hard to wake up and that she was feeling very weak. on our arrival we showed up to a house that was is very poor condition with the smell of cat urine. when we got to the pt she sprung awake and was waving her arms and feet saying she was at the game room last night and she is dehydrated and feeling weak. she also is reporting anxiety.". Coronavirus screen: At this time, the client does not indicate any symptoms associated with coronavirus-19. Ebola Screen: No symptoms or risks identified at this time. Initial Sepsis Screen: Does the patient meet any 2 criteria? No. Patient's initial sepsis screen is negative. Does the patient have a suspected source of infection? No. Patient's initial sepsis screen is negative. Risk Assessment: Do you want to hurt yourself or someone else? Patient reports no desire to harm self or others. Onset of symptoms was March 30, 2022. 07:26 Method Of Arrival: EMS: [facility] jd3 07:26 Acuity: МАРИНА 3 jd3 Historical: - Allergies: 07:30 hydrocodone; jd3 - Home Meds: 07:30 BuSpar Oral [Active]; levothyroxine oral [Active]; lisinopril Oral [Active]; Wellbutrin jd3 SR 150 mg Oral tab [Active]; - PMHx: 07:30 chronic back pain; Depression; GI Bleed; Hypothyroidism; SEROTONIN SYNDROME; jd3 - Immunization history:: Adult Immunizations up to date, Client reports having NOT received the Covid vaccine. - Social history:: Smoking status: Patient reports the use of cigarette tobacco products, denies chronic smoking, but will smoke occasionally. - Family history:: not pertinent. Screenin:08 Abuse screen: Denies threats or abuse. Nutritional screening: No deficits noted. jd3 Tuberculosis screening: No symptoms or risk factors identified. Fall Risk Ambulatory Aid- None/Bed Rest/Nurse Assist (0 pts). Gait- Normal/Bed Rest/Wheelchair (0 pts) Mental Status- Oriented to own ability (0 pts). Total Seth Fall Scale indicates No Risk (0-24 pts). Assessment: 08:07 General: Appears in no apparent distress. uncomfortable, Behavior is cooperative, jd3 appropriate for age, anxious, fussy, restless. Pain: Complains of pain in head Quality of pain is described as aching. Neuro: Arnold Agitation-Sedation Scale (RASS): +1 Restless Level of Consciousness is awake, alert, obeys commands, Oriented to person, place, time, situation. Cardiovascular: Denies chest pain, Capillary refill < 3 seconds Patient's skin is warm and dry. Rhythm is regular. Respiratory: Airway is patent Respiratory effort is even, unlabored, Respiratory pattern is regular, symmetrical, Denies cough, shortness of breath. GI: Abdomen is non-distended, Abd is soft and non tender X 4 quads. Reports lower abdominal pain, upper abdominal pain, nausea. : No signs and/or symptoms were reported regarding the genitourinary system. EENT: No signs and/or symptoms were reported regarding the EENT system. Derm: Skin is intact, Skin is dry, Skin is normal, Skin temperature is warm. Musculoskeletal: Circulation, motion, and sensation intact. Range of motion: intact in all extremities. 09:11 Reassessment: No changes from previously documented assessment. Patient and/or family jd3 updated on plan of care and expected duration. Pain level reassessed. 09:32 Reassessment: pt found on floor. pt noted to hae urinated on self. pt assisted to stand jd3 and get back into bed. pt refusing to answer questions at this time and choosing to moan to staff, but answer yes and no questions properly with shaking head yes and no. provider notified. cleaned of incontinence. 09:53 Reassessment: Patient and/or family updated on plan of care and expected duration. Pain jd3 level reassessed. pt resting in bed with eyes closed even and unlabored respirations. sitter at bedside. pt changed into hospital gown. cloths and pt belongings placed in belongings bag and remains at bedside. 10:50 Reassessment: Patient and/or family updated on plan of care and expected duration. Pain jd3 level reassessed. resting in bed with eye closed. sitter remains at bedside. side rails remain up. even and unlabored respirations. 11:45 Reassessment: Patient appears in no apparent distress at this time. No changes from jd3 previously documented assessment. Patient and/or family updated on plan of care and expected duration. Pain level reassessed. 12:44 Reassessment: Patient appears in no apparent distress at this time. No changes from jd3 previously documented assessment. Patient and/or family updated on plan of care and expected duration. Pain level reassessed. 13:30 Reassessment: No changes from previously documented assessment. Patient and/or family jd3 updated on plan of care and expected duration. Pain level reassessed. awaiting admission. 14:30 Reassessment: Patient and/or family updated on plan of care and expected duration. Pain jd3 level reassessed. Patient is alert, oriented x 3, equal unlabored respirations, skin warm/dry/pink. pt is awake again and responding appropriately. pt reports anxiety, and continues to moan and roll around in bed. verbal reassurance given. pt in view of nurse. 15:42 Reassessment: No changes from previously documented assessment. Patient and/or family jd3 updated on plan of care and expected duration. Pain level reassessed. Patient is alert, oriented x 3, equal unlabored respirations, skin warm/dry/pink. assisted to bedside toilet. Vital Signs: 07:31 BP 97 / 59; Pulse 88; Resp 18; Temp 98(TE); Pulse Ox 100% on R/A; Weight 61.23 kg (R); jd3 Height 5 ft. 7 in. (170.18 cm) (R); Pain 8/10; 09:11 BP 99 / 52; Pulse 85; Resp 16 S; Pulse Ox 100% on R/A; jd3 09:55 BP 99 / 60; Pulse 81; Resp 16; Pulse Ox 100% on R/A; jd3 10:57 BP 90 / 52; Pulse 80; Resp 16; Pulse Ox 100% on R/A; jd3 12:44 BP 97 / 53; Pulse 81; Resp 16; Pulse Ox 100% on R/A; jd3 14:00 BP 99 / 62; Pulse 82; Resp 19; Pulse Ox 100% on R/A; jd3 15:42 BP 106 / 51; Pulse 78; Resp 17; Pulse Ox 100% on R/A; jd3 07:31 Body Mass Index 21.14 (61.23 kg, 170.18 cm) jd3 ED Course: 07:21 Patient arrived in ED. mw2 07:26 Alejandro Wallace, [place] is Primary Nurse. jd3 07:27 Sarwat Foss MD is Attending Physician. brooke 07:29 Triage completed. jd3 07:31 Arm band placed on. jd3 07:51 Inserted saline lock: 22 gauge in right hand, using aseptic technique. kc6 08:05 Served as a him clerk during rectal exam. jd3 08:09 Patient has correct armband on for positive identification. Bed in low position. Call jd3 light in reach. Side rails up X2. Adult w/ patient. Client placed on continuous cardiac and pulse oximetry monitoring. NIBP monitoring applied. nurse monitoring on. Pulse ox on. NIBP on. 08:30 XRAY Chest (1 view) In Process Unspecified. EDMS 09:33 Napoleon Oneil is Hospitalizing Provider. brooke 09:35 Inserted saline lock: 22 gauge in left antecubital area, using aseptic technique. jd3 10:03 CT Head C Spine In Process Unspecified. EDMS 20:25 Patient admitted, IV remains in place. as6 Administered Medications: 08:30 Drug: NS 0.9% 1000 ml Route: IV; Rate: 125 ml/hr; Site: left hand; jd3 19:03 Follow up: Response: No adverse reaction; IV Status: Completed infusion jd3 08:30 Drug: Ativan (LORazepam) 1 mg Route: IVP; Site: left hand; jd3 09:30 Follow up: Response: No adverse reaction; RASS: Restless (+1) jd3 08:30 Drug: Pepcid (famotidine) 20 mg Route: IVP; Site: left hand; jd3 09:30 Follow up: Response: No adverse reaction jd3 09:32 Drug: Ativan (LORazepam) 1 mg Route: IVP; Site: left antecubital; jd3 10:00 Follow up: Response: No adverse reaction; RASS: Drowsy (-1) jd3 09:53 Drug: ProTONIX (pantoprazole) 40 mg Route: IVP; Site: left antecubital; jd3 10:50 Follow up: Response: No adverse reaction jd3 Medication: 08:08 VIS not applicable for this client. jd3 Outcome: 09:36 Decision to Hospitalize by Provider. brooke 20:24 Admitted to Med/surg accompanied by tech, via stretcher, room 201, with chart. as6 20:24 Condition: stable 20:24 Instructed on the need for admit. 20:28 Patient left the ED. as6 Signatures: Dispatcher [employer] EDSarwat Sierra MD MD cha Davies, Jonathon RN RN jd3 Poncho Angelo mw2 Kaushik Ji RN RN as6 Destiny Price kc6 Corrections: (The following items were deleted from the chart) 08:35 08:07 General: Appears in no apparent distress. uncomfortable, Behavior is calm, jd3 cooperative, appropriate for age, jd3 08:35 08:07 Neuro: Arnold Agitation-Sedation Scale (RASS): 0 - Alert and Calm Level of jd3 Consciousness is awake, alert, obeys commands, Oriented to person, place, time, situation, jd3
[2022-03-30] MEDS ORDERED: PANTOPRAZOLE 40 MG INJ ONE (09:50)
--- NOTE | 2022-03-30 10:19 | RAD REPORT ---
EXAM DESCRIPTION: CT - Head C Spine Mpr Wo Con - 03/30/2022 10:02 am CLINICAL HISTORY: Head and neck injury status post fall. Head and neck pain COMPARISON: None. TECHNIQUE: Computed axial tomography of the head and cervical spine was obtained. Sagittal and coronal reconstruction was performed. All CT scans are performed using dose optimization technique as appropriate and may include automated exposure control or mA/KV adjustment according to patient size. FINDINGS: An intracranial bleed is not seen. The ventricles are normal in caliber. An extra-axial fl uid collection is not noted.Fluid within the visualized sinuses and mastoids is not seen A cervical fracture is not visualized. No dislocation is noted. IMPRESSION: No acute intracranial abnormality is seen. A cervical fracture is not visualized. If the patient continues to have symptoms to suggest intracra nial /spinal cord pathology then MRI would be recommended
--- NOTE | 2022-03-30 11:54 | P.HP ---
Certification for Inpatient Patient admitted to: Observation With expected LOS: <2 Midnights Practitioner: I am a practitioner with admitting privileges, knowledge of patient current condition, hospital course, and medical plan of care. Services: Services provided to patient in accordance with Admission requirements found in Title 42 Section 412.3 of the Code of Federal Regulations Patient History Date of Service: 03/30/22 Reason for admission: Syncope History of Present Illness: 66-year-old woman with a history of bipolar disorder on antipsychotics, history of anemia secondary to GI bleed, history of peptic ulcer disease was brought to the emergency department because she was hard to wake this morning. Her son called EMS because she could not wake her. Per report, she abruptly woke up when EMS got to her and she was complaining of being dehydrated and anxious. Patient was brought to the emergency department where her systolic blood pressure noted to be in the 90s. Hemoglobin 8.7. Chest x-ray unremarkable, EKG shows no arrhythmia or significant ischemic changes. Patient apparently got agitated and fell while in the ED. CT head cervical spine done did not show any acute disease or fracture. She was given IV Ativan for agitation before I saw her. Patient was somnolent and could not provide any history. I suspect patient's symptoms related to hypotension or polypharmacy or drug overdose. She is hospitalized for further management. Allergies iodine Allergy (Unknown, Verified 03/09/21 14:48) UNKNOWN NKDA Allergy (Uncoded 03/09/21 14:48) Unknown Home Medications: Levothyroxine [Synthroid*] 0.1 mg PO DAILYAC #30 tab 11/08/19 risperiDONE [Risperdal 1 mg tab*] 1 mg PO BEDTIME #15 tab 11/08/19 Pantoprazole [Protonix Tab*] 40 mg PO BIDAC 30 Days #60 tab 07/01/20 - Past Medical/Surgical History Diabetic: No -: depression -: anxiety -: hypothyroidism -: stomach ulcer -: back pain -: bipolar-schizo effective disorder -: seritonin syndrome - Family History Family History: Reviewed- Non-Contributory - Social History Alcohol use: No CD- Drugs: No Caffeine use: Yes Review of Systems is unable to be obtained (Due to altered mental status) Physical Examination - Physical Exam General: Unresponsive, Other (Underweight) HEENT: Atraumatic, Normocephalic, PERRLA, Mucous membr. moist/pink, EOMI, Sclerae nonicteric Neck: Supple, JVD not distended Respiratory: Clear to auscultation bilaterally, Normal air movement Cardiovascular: No edema, Regular rate/rhythm, Normal S1 S2, Systolic murmur Gastrointestinal: Normal bowel sounds, Soft and benign, Non-distended, No tenderness Musculoskeletal: No swelling, No tenderness Integumentary: No rashes, No erythema, No cyanosis Neurological: Other (Unresponsive, she moves all extremities spontaneously) Lymphatics: No axilla or inguinal lymphadenopathy - Studies Laboratory Data (last 24 hrs) 03/30/22 08:01: PT 13.7 H, INR 1.24 03/30/22 08:01: WBC 7.8, Hgb 8.7 L, Hct 25.4 L, Plt Count 304 03/30/22 08:01: Sodium 145, Potassium 4.0, BUN 52 H, Creatinine 1.49 H, Glucose 86, Magnesium 2.1 D, Total Bilirubin 0.3, AST 11 L, ALT 13, Alkaline Phosphatase 64, Lipase 59 L Assessment and Plan - Problems (Diagnosis) (1) Hypotension Current Visit: Yes Status: Acute (2) Metabolic encephalopathy Current Visit: Yes Status: Acute (3) Syncope Current Visit: Yes Status: Acute (4) Chronic kidney disease, stage III (moderate) Current Visit: Yes Status: Acute (5) Chronic anemia Current Visit: Yes Status: Acute (6) History of GI bleed Current Visit: Yes Status: Acute (7) Anxiety Current Visit: No Status: Acute (8) Schizoaffective disorder Current Visit: No Status: Acute - Plan Differential diagnosis for patient's altered mental status include hypotension, polypharmacy, drug overdose or symptomatic anemia. Placed under observation on the medical floor. Fall precautions Hydrate with IV D5 normal saline. Monitor and transfuse as needed for hemoglobin less than 8. Patient with a history of hypothyroidism on Synthroid. Check TSH and free T4. Check a.m. cortisol level. Monitor blood pressure. Hold Risperdal for now. Toxicology screen, urinalysis with reflex culture. - Advance Directives Does patient have a Living Will: No Does patient have a Durable POA for Healthcare: No
[2022-03-30] MEDS ORDERED: ACETAMINOPHEN 500 MG TAB PO PRN (12:57)
[2022-03-30] MEDS ORDERED: D5W 1,000 ML IV ONE (16:21)
[2022-03-30] MEDS: D5 0.9 NS 1,000 ML IV SCH (17:00)
[2022-03-30 17:08] VITALS: BMI 21.1
[2022-03-31] MEDS: D5 0.9 NS 1,000 ML IV SCH ×3 (02:11→21:28)
[2022-03-31 06:26] LABS: Absolute Lymphocytes (CBC) 1.9 K/uL (0.7-4.9); Hematocrit 21.1 % (36.0-45.0); MCV 87.2 fL (80-100); MPV 7.4 fL (7.6-11.3); RBC Red Blood Cell Count 2.42 M/uL (3.86-4.86)
[2022-03-31 06:34] LABS: Magnesium 1.9 mg/dL (1.8-2.4); Phosphorus 2.4 mg/dL (2.5-4.9); Potassium 3.7 mmol/L (3.5-5.1)
[2022-03-31 06:41] LABS: Thyroid Stimulating Hormone 4.13 uIU/mL (0.360-3.740)
[2022-03-31] MEDS ORDERED: POTASSIUM CL SA 10 MEQ TAB PO ONE (09:00)
[2022-03-31] MEDS ORDERED: NA CHLORIDE 0.9% 250 ML IV SCH (09:00)
[2022-03-31] MEDS: POTASS/SODIUM PHOSPHATE 1 PKT POWD.PACK PO SCH ×3 (09:16→11:26)
[2022-03-31 10:08] LABS: Urine Appearance Clear (Clear); Urine Bilirubin Negative (Negative); Urine Blood Negative (Negative); Urine Color Yellow (Yellow); Urine Glucose Negative (Negative); Urine Protein Negative (Negative); Urine Specific Gravity 1.015 (1.005-1.030); Urine Urobilinogen 0.2 mg/dL (0.2-1.0)
[2022-03-31 10:15] LABS: Urine Bacteria <20 /HPF (<20); Urine RBC <5 /HPF (NONE SEEN)
[2022-03-31] MEDS: BUSPIRONE HCL 5 MG TABLET PO SCH ×2 (12:59→21:27)
--- NOTE | 2022-03-31 13:04 | P.PN ---
Subjective Date of Service: 03/31/22 Chief Complaint: Syncope Patient is more awake today and requested to eat. Nursing staff report bloody stool today. Hemoglobin dropped to 7.1. Physical Examination - Vital Signs Temperature: 99.2 F Blood Pressure: 105/53 Pulse: 83 Respirations: 20 Pulse Ox (%): 95 - Physical Exam General: Alert, In no apparent distress, Oriented x3 HEENT: Mucous membr. moist/pink Neck: JVD not distended Respiratory: Clear to auscultation bilaterally, Normal air movement Cardiovascular: No edema, Regular rate/rhythm, Normal S1 S2 Gastrointestinal: Normal bowel sounds, Soft and benign, Non-distended, No tenderness Musculoskeletal: No swelling Integumentary: No rashes, No erythema, No cyanosis Neurological: Normal strength at 5/5 x4 extr Assessment And Plan - Current Problems (Diagnosis) (1) Hypotension Current Visit: Yes Status: Acute (2) Metabolic encephalopathy Current Visit: Yes Status: Acute (3) Syncope Current Visit: Yes Status: Acute (4) Chronic kidney disease, stage III (moderate) Current Visit: Yes Status: Acute (5) Chronic anemia Current Visit: Yes Status: Acute (6) History of GI bleed Current Visit: Yes Status: Acute (7) Anxiety Current Visit: No Status: Acute (8) Schizoaffective disorder Current Visit: No Status: Acute - Plan Differential diagnosis for patient's altered mental status include hypotension, polypharmacy, drug overdose or symptomatic anemia. Patient is still orthostatic, systolic BP dropped to 86 with standing and associated with dizziness. Fall precautions Continue IV fluid. Patient will be transfused 1 unit PRBC. Patient started on a diet. Hemoglobin dropped. Reported bloody stool. Transfuse 1 unit PRBC. Start Protonix. GI consulted to evaluate. TSH mildly elevated indicating subclinical hypothyroidism. Continue current Synthroid dose. Cortisol level within normal limits. Resume Risperdal. Toxicology screen is pending. Follow urine culture.
--- NOTE | 2022-03-31 13:07 | EKG ---
Test Date: 2022-03-30 Test Time: 09:09:25 Business Applications Specialist: ARVIND MEASUREMENT RESULTS: Intervals: Rate: 68 AL: 130 QRSD: 94 QT: 468 QTc: 497 Lucan: P: 80 AL: 130 QRS: 65 T: -89 INTERPRETIVE STATEMENTS: Sinus rhythm Cannot rule out Inferior infarct, age undetermined Abnormal ECG Compared to ECG 01/29/2022 16:58:00 Myocardial infarct finding now present Left ventricular hypertrophy no longer present Electronically Signed On 03-31-22 13:06:39 CDT by Noel Samuels
[2022-03-31] MEDS: PANTOPRAZOLE 40MG TABLET PO SCH (16:40)
[2022-03-31] MEDS: MAGNESIUM CITRATE 300 ML BOT PO SCH (21:27)
[2022-03-31] MEDS: METOCLOPRAMIDE 10 MG/2mL INJ IV SCH (21:27)
[2022-03-31] MEDS: RISPERIDONE 1 MG TABLET PO SCH (21:27)
[2022-03-31] MEDS: GOLYTELY 4000 ML PO SCH (21:28)
[2022-03-31 23:05] LABS: Hematocrit 22.3 % (36.0-45.0)
[2022-04-01] MEDS: METOCLOPRAMIDE 10 MG/2mL INJ IV SCH ×2 (02:42→08:00)
[2022-04-01] MEDS: LEVOTHYROXINE SOD 0.075 MG TAB PO SCH (05:57)
[2022-04-01] MEDS: D5 0.9 NS 1,000 ML IV SCH ×2 (05:57→14:57)
[2022-04-01 06:01] LABS: Absolute Lymphocytes (CBC) 1.2 K/uL (0.7-4.9); Lymphocytes % 23.2 % (15.3-44.8); MCV 87.9 fL (80-100); MPV 7.5 fL (7.6-11.3); RBC Red Blood Cell Count 2.32 M/uL (3.86-4.86)
[2022-04-01 06:11] LABS: Hematocrit 20.4 % (36.0-45.0)
[2022-04-01 06:17] LABS: Potassium 3.9 mmol/L (3.5-5.1)
[2022-04-01 06:27] LABS: Magnesium 2.8 mg/dL (1.8-2.4); Phosphorus 2.2 mg/dL (2.5-4.9)
[2022-04-01] MEDS: PANTOPRAZOLE 40MG TABLET PO SCH ×2 (07:30→18:04)
[2022-04-01] MEDS ORDERED: POTASSIUM PHOS 22 MEQ in NA CHLORIDE 0.9% 250 ML IV ONE (08:00)
[2022-04-01] MEDS ORDERED: HOME MED 1 EA UNK (Levothyroxine Sodium [Synthroid] 150 MCG Tablet) PO SCH (09:00)
[2022-04-01] MEDS: BUSPIRONE HCL 5 MG TABLET PO SCH ×2 (09:00→21:15)
--- NOTE | 2022-04-01 14:19 | P.PN ---
Subjective Date of Service: 04/01/22 Chief Complaint: Syncope Patient report bloody bowel movement last night. Nursing staff reports melena. She has a history of peptic ulcer disease Hemoglobin improved to 7.5 after 1 unit PRBC transfusion and then dropped again to 7.0 overnight. Nursing staff report patient initially refused to sign consent for EGD and colonoscopy. She agreed to undergo the procedure when I saw her this morning. Physical Examination - Vital Signs Temperature: 98.3 F Blood Pressure: 100/49 Pulse: 69 Respirations: 18 Pulse Ox (%): 100 Assessment And Plan - Current Problems (Diagnosis) (1) Hypotension Current Visit: Yes Status: Acute (2) Metabolic encephalopathy Current Visit: Yes Status: Acute (3) Syncope Current Visit: Yes Status: Acute (4) Chronic kidney disease, stage III (moderate) Current Visit: Yes Status: Acute (5) Chronic anemia Current Visit: Yes Status: Acute (6) History of GI bleed Current Visit: Yes Status: Acute (7) Anxiety Current Visit: No Status: Acute (8) Schizoaffective disorder Current Visit: No Status: Acute - Plan Physical examination General: Alert, In no apparent distress, Oriented x3 HEENT: Mucous membr. moist/pink Neck: JVD not distended Respiratory: Clear to auscultation bilaterally, Normal air movement Cardiovascular: No edema, Regular rate/rhythm, Normal S1 S2 Gastrointestinal: Normal bowel sounds, Soft and benign, Non-distended, No tenderness Musculoskeletal: No swelling Integumentary: No rashes, No erythema, No cyanosis Neurological: Normal strength at 5/5 x4 extr Plan: Differential diagnosis for patient's altered mental status include hypotension, polypharmacy, drug overdose or symptomatic anemia. Patient is orthostatic, systolic BP drops with standing and associated with dizziness. Fall precautions Continue IV fluid. Transfuse 2 more PRBC She is n.p.o. for procedure today. Patient seen by GI-Dr. Liz who is recommending EGD and colonoscopy. Patient was noncompliant last night and did not drink the bowel prep. She may have EGD today. Continue to monitor for active bleeding and transfuse as needed for hemoglobin less than 7. Continue IV Protonix. TSH mildly elevated indicating subclinical hypothyroidism. Continue current Synthroid dose. Cortisol level within normal limits. Continue Risperdal and other home medications. Toxicology screen is pending. Urine culture showed no growth. Continue PT.
[2022-04-01] MEDS ORDERED: Ringers Lactate 1,000 ML IV ONE (15:15)
[2022-04-01 15:25] LABS: Hematocrit 18.7 % (36.0-45.0)
[2022-04-01] MEDS ORDERED: propofoL 200 MG/20 ML VIAL IV ONE ×2 (15:39)
[2022-04-01] MEDS ORDERED: LIDOCAINE 1% MPF 5 ML VIAL ONE (15:39)
[2022-04-01] MEDS ORDERED: NA CHLORIDE 0.9% 250 ML ONE (15:51)
--- NOTE | 2022-04-01 16:45 | ENDO RPT ---
[address], [address] EGD PROCEDURE REPORT EXAM DATE: 04/01/2022 PATIENT NAME: Rhea Carballo MR#: [id number] BIRTHDATE: 1955 ATTENDING: Janusz Liz Dr STATUS: inpatient - 7 RIVET CATCHER: Mimi Jacobs RN and Elijah Burt CST INDICATIONS: The patient is a 66 yr old Female here for an EGD due to hematochezia, G.I. bleeding, anemia, hgb 7.1, history of PUD, hypotension with syncope PROCEDURE PERFORMED: EGD with biopsy MEDICATIONS: Per Anesthesia. TOPICAL ANESTHETIC: none CONSENT: The patient understands the risks and benefits of the procedure and understands that these risks include, but are not limited to: sedation, allergic reaction, infection, perforation and/or bleeding. Alternative means of evaluation and treatment include, among others: physical exam, x-rays, and/or surgical intervention. The patient elects to proceed with this endoscopic procedure. DESCRIPTION OF PROCEDURE: During intra-op preparation period all mechanical medical equipment was checked for proper function. Hand hygiene and appropriate measures for infection prevention was taken. Procedure, possible complications, and alternatives including but not limited to the possibility of bleeding, perforation, tear, infection, sepsis, need for surgery, need for blood transfusion, and anesthesia related complications were explained to the patient. After the risks, benefits and alternatives of the procedure were thoroughly explained, Informed consent was verified, confirmed and timeout was successfully executed by the treatment team. The patient was placed in the left lateral position. The patient was anesthetized with topical anesthesia. Through the anesthetized oropharyngeal area, the scope was passed without any difficulty. The Pentax [id number] ([id number]) endoscope was introduced through the mouth and advanced to the second portion of the duodenum. Retroflexed views revealed a moderate sized hiatal hernia. The gastroscope was then slowly withdrawn and removed. A Schatzki's ring was found in the lower esophagus (no history of dysphagia). A moderate sized hiatal hernia was found. Mild gastritis was found in the antrum. Multiple biopsies were obtained and sent to pathology. Multiple (3) 2-3 mm ulcers were found in the antrum. Multiple (6) erosions were found in the antrum. Mild duodenitis was found in the bulb of the duodenum. Multiple bulb. A 6mm ulcer was found on the posterior wall of the bulb of the duodenum. ADVERSE EVENTS: There were no complications. IMPRESSIONS: 1. Schatzki's ring in the lower esophagus (no history of dysphagia) 2. Moderate sized hiatal hernia 3. Mild gastritis in the antrum, s/p biopsies 4. Multiple (3) 2-3 mm ulcers in the antrum 5. Multiple (6) erosions in the antrum 6. Mild duodenitis in the bulb of the duodenum bulb 8. 6 mm ulcer on the posterior wall of the bulb of the duodenum (see images above) RECOMMENDATIONS: 1. await biopsy results 2. acid suppression therapy (PPI full dose bid for 3 months) 3. check AM gastrin level REPEAT EXAM: Janusz Liz Dr eSigned: Janusz Liz Dr 04/01/2022 4:45 PM cc: CPT CODES: ICD9 CODES: PATIENT NAME: Rhea Carballo MR#: [id number]
--- NOTE | 2022-04-01 16:56 | ENDO RPT ---
[address], [address] COLONOSCOPY PROCEDURE REPORT EXAM DATE: 04/01/2022 PATIENT NAME: Rhea Carballo MR #: [id number] BIRTHDATE: 1955 ATTENDING: Janusz Liz Dr STATUS: inpatient - 7 SCOURING MACHINE OPERATOR: Elijah Burt CST and Mimi Jacobs RN INDICATIONS: The patient is a 66 yr old Female here for a colonoscopy due to hematochezia, anemia, hgb 7.1, hypotension, syncope PROCEDURE PERFORMED: Colonoscopy MEDICATIONS: Per Anesthesia. ESTIMATED BLOOD LOSS: None CONSENT: The patient understands the risks and benefits of the procedure and understands that these risks include, but are not limited to: sedation, allergic reaction, infection, perforation and/or bleeding. Alternative means of evaluation and treatment include, among others: physical exam, x-rays, and/or surgical intervention. The patient elects to proceed with this endoscopic procedure. DESCRIPTION OF PROCEDURE: During intra-op preparation period all mechanical medical equipment was checked for proper function. Hand hygiene and appropriate measures for infection prevention was taken. Procedure, possible complications, alternatives including, but not limited to possibility of bleeding, perforation, tear, infection, sepsis, need for surgery, need for blood transfusion, were explained to the patient. After the risks, benefits and alternatives of the procedure were thoroughly explained, Informed consent was verified, confirmed and timeout was successfully executed by the treatment team. The patient was placed in the left lateral position. A digital rectal exam was performed and revealed no abnormalities of the rectum. After appropriate level of anesthesia, the scope was passed. The [id number] ([id number]) and [id number] ([id number]) endoscope was introduced through the anus and advanced to the ascending colon. The quality of the prep was poor. The instrument was then slowly withdrawn as the colon was fully examined. Scope withdrawal time was 7 minutes. COLON FINDINGS: Melena with hints of fresh red heme throughout the colon, right > left. Mild diverticulosis was noted in the sigmoid colon. Retroflexed views revealed no abnormalities. The scope was then completely withdrawn from the patient and the procedure terminated. ADVERSE EVENTS: There were no complications. IMPRESSIONS: 1. Melena with hints of fresh red heme throughout the colon, right > left 2. Mild diverticulosis in the sigmoid colon RECOMMENDATIONS: 1. continue PPI bid for extensive PUD noted on EGD 2. monitor labs 3. consider repeat colonoscopy due to poor prep and small bowel evaluation as indicated RECALL: Repeat Colonoscopy with better prep Janusz Liz Dr eSigned: Janusz Liz Dr 04/01/2022 4:56 PM cc: CPT CODES: ICD9 CODES: PATIENT NAME: Rhea Carballo MR#: [id number]
[2022-04-01] MEDS: MAGNESIUM CITRATE 300 ML BOT PO SCH (19:30)
[2022-04-01] MEDS: GOLYTELY 4000 ML PO SCH (19:30)
[2022-04-01] MEDS: RISPERIDONE 1 MG TABLET PO SCH (21:15)
[2022-04-01 21:17] LABS: Hematocrit 22.3 % (36.0-45.0)
[2022-04-02] MEDS: D5 0.9 NS 1,000 ML IV SCH ×3 (00:57→12:02)
[2022-04-02 06:10] LABS: Hematocrit 24.9 % (36.0-45.0)
[2022-04-02] MEDS: LEVOTHYROXINE SOD 0.075 MG TAB PO SCH (06:19)
[2022-04-02 08:37] VITALS: O2SAT 95
[2022-04-02] MEDS: PANTOPRAZOLE 40MG TABLET PO SCH (08:56)
[2022-04-02] MEDS: BUSPIRONE HCL 5 MG TABLET PO SCH (08:56)
[2022-04-02 11:55] VITALS: BP 92/47; TEMP 97.6
--- NOTE | 2022-04-02 12:03 | P.DS ---
Admission Date: 03/31/22 Discharge Date: 04/02/22 Disposition: ROUTINE DISCHARGE Discharge Condition: FAIR Reason for Admission: Syncope Consultations: GI- Dr. Liz. - Problems (1) Hypotension Current Visit: Yes Status: Acute (2) Metabolic encephalopathy Current Visit: Yes Status: Acute (3) Syncope Current Visit: Yes Status: Acute (4) Chronic kidney disease, stage III (moderate) Current Visit: Yes Status: Acute (5) Chronic anemia Current Visit: Yes Status: Acute (6) History of GI bleed Current Visit: Yes Status: Acute (7) Anxiety Current Visit: No Status: Acute (8) Schizoaffective disorder Current Visit: No Status: Acute Brief History of Present Illness: 66-year-old woman with a history of bipolar disorder on antipsychotics, history of anemia secondary to GI bleed, history of peptic ulcer disease was brought to the emergency department because she was hard to wake this morning. Her son called EMS because she could not wake her. Per report, she abruptly woke up when EMS got to her and she was complaining of being dehydrated and anxious. Patient was brought to the emergency department where her systolic blood pressure noted to be in the 90s. Hemoglobin 8.7. Chest x-ray unremarkable, EKG shows no arrhythmia or significant ischemic changes. Patient apparently got agitated and fell while in the ED. CT head cervical spine done did not show any acute disease or fracture. She was given IV Ativan for agitation before I saw her. Patient was somnolent and could not provide any history. I suspect patient's symptoms related was to hypotension or polypharmacy or drug overdose. She was hospitalized for further management. Hospital Course: Patient admitted to the medical floor and hydrated with IV fluid. His psychotropic medications were held for 24 hours. Patient became awake and alert. She developed melena and her hemoglobin dropped to 6.2. She was given 3 unit PRBC transfusion, GI consulted and EGD performed which showed multiple gastric ulcers. Gastrin level obtained per GI recommendation. Patient was treated with Protonix. She has a history of peptic ulcer in the past. Her blood pressure was initially borderline low but this improved with hydration. Patient has tolerated liquid diet, no more melena. GI attempted colonoscopy but it was a poor study due to poor prep. Dr. Liz recommended follow-up in the office for repeat colonoscopy. Patient clinical condition is improved and deemed stable for discharge. She is on chronic risperdal therapy. Noted she has abnormal tongue movement and protrusion suggesting dystonia. Patient prescribed Cogentin. She is informed to follow-up with psychiatry as an outpatient. Vital Signs/Physical Exam: Temp Pulse Resp BP Pulse Ox 97.6 F 67 18 92/47 L 99 04/02/22 11:54 04/02/22 11:54 04/02/22 11:54 04/02/22 11:54 04/02/22 11:54 General: Alert, In no apparent distress, Oriented x3 HEENT: Mucous membr. moist/pink Neck: JVD not distended Respiratory: Clear to auscultation bilaterally, Normal air movement Cardiovascular: No edema, Regular rate/rhythm, Normal S1 S2 Gastrointestinal: Normal bowel sounds, Soft and benign, Non-distended, No tenderness Musculoskeletal: No swelling Integumentary: No rashes Neurological: Normal speech, Normal strength at 5/5 x4 extr Lymphatics: No axilla or inguinal lymphadenopathy Laboratory Data at Discharge: WBC 5.0 K/uL (4.3-10.9) 04/01/22 05:47 Hgb 8.8 g/dL (12.0-15.0) L 04/02/22 08:10 Hct 26.0 % (36.0-45.0) L 04/02/22 08:10 Plt Count 169 K/uL (152-406) D 04/01/22 05:47 PT 13.7 SECONDS (9.5-12.5) H 03/30/22 08:01 INR 1.24 03/30/22 08:01 Sodium 143 mmol/L (136-145) 04/02/22 05:23 Potassium 4.0 mmol/L (3.5-5.1) 04/02/22 05:23 BUN 21 mg/dL (7-18) H 04/02/22 05:23 Creatinine 0.94 mg/dL (0.55-1.3) 04/02/22 05:23 Glucose 108 mg/dL (74-106) H 04/02/22 05:23 Phosphorus 2.2 mg/dL (2.5-4.9) L 04/01/22 05:47 Magnesium 2.8 mg/dL (1.8-2.4) H D 04/01/22 05:47 Total Bilirubin 0.3 mg/dL (0.2-1.0) 03/30/22 08:01 AST 11 U/L (15-37) L 03/30/22 08:01 ALT 13 U/L (12-78) 03/30/22 08:01 Alkaline Phosphatase 64 U/L (45-117) 03/30/22 08:01 Triglycerides 145 mg/dL (<150) 03/31/22 05:52 Cholesterol 108 mg/dL (<200) 03/31/22 05:52 HDL Cholesterol 30 mg/dL (40-60) L 03/31/22 05:52 Cholesterol/HDL Ratio 3.60 03/31/22 05:52 Lipase 59 U/L (73-393) L 03/30/22 08:01 Home Medications: Pantoprazole [Protonix Tab*] 40 mg PO BIDAC 30 Days #60 tab 07/01/20 Levothyroxine Sodium [Synthroid] 1 tab PO DAILY 03/31/22 Benztropine Mesylate [Cogentin] 1 mg PO BEDTIME #30 tab 04/02/22 Buspirone HCl [Buspar] 1 tab PO BID #60 04/02/22 Pantoprazole [Protonix Tab*] 40 mg PO BIDAC #60 tab 04/02/22 risperiDONE [Risperdal 1 mg tab*] 1 mg PO BEDTIME #30 tab 04/02/22 New Medications: Buspirone HCl [Buspar] 1 tab PO BID #60 Benztropine Mesylate [Cogentin] 1 mg PO BEDTIME #30 tab Pantoprazole [Protonix Tab*] 40 mg PO BIDAC #60 tab risperiDONE [Risperdal 1 mg tab*] 1 mg PO BEDTIME #30 tab Diet: AHA Activity: Ad yogesh Followup: NONE,NONE [Primary Care Provider] - Janusz Liz MD [ASSOCIATE-ACTIVE - CAN ADMIT] - 1-2 Weeks Huy Oneill [ACTIVE - CAN ADMIT] - (Please call for appointment.) Time spent managing pt's care (in minutes): 37
--- NOTE | 2022-04-06 16:47 | CON ---
Date of Consultation: 03/31/2022 Reason For Consultation: Hematochezia with hemoglobin low at 7.1 with anemia. History Of Present Illness: The patient is a 66-year-old white female with history of bipolar disord er, on antipsychotics, anemia, peptic ulcer disease, brought to the emergency room due to hematochezi a and syncope. The patient started having hematochezia, but also almost had passed out at home. In the emergency room, she was found to be hypotensive with systolic blood pressure in the 90s. Past Medical History: Significant for anemia, bipolar disorder, schizophrenia, depression, hypothyro idism, generalized anxiety disorder, peptic ulcer disease, back pain, and Serotonin syndrome. Home Medications: Include Synthroid, Risperdal, Protonix. Allergies: IODINE. Social History: No tobacco. No alcohol. Review of Systems: Patient has hematochezia, hypotension and syncope. She denies any hematemesis, coffee-grounds emesis , hematuria, dysuria, polydipsia, hemoptysis, epistaxis. No cough, cold. No chest pain, shortness o f breath, seizure, syncope, lower extremity muscle aches, joint aches, backaches. Physical Examination: Vital Signs: The patient is 5 foot 7 inches, 135 pounds, BMI 21.1 kg/m2. The patient's temperature 98.5 degrees Fahrenheit, pulse 80, respirations 20, blood pressure 98/54, O2 saturation 100%. General: She is a well-nourished, well-developed female, lying in bed, in no acute distress. HEENT: Normocephalic, atraumatic. Anicteric. Pupils equal, round, and reactive to light. Extraocu lar movements are intact. Oropharynx clear. Neck: Supple. No masses. Respirations: Clear to auscultation bilaterally. Cardiac: Regular. Gastrointestinal: Positive bowel sounds. Soft, nontender, nondistended. No hepatosplenomegaly. Extremities: No clubbing, cyanosis, or edema. 2+ pulses. Neuro: Alert and oriented x3. Grossly nonfocal. 5/5 motor. Sensation intact to light touch. Laboratory Data: White count of 5.1, hemoglobin 7.1, hematocrit 21.1, MCV of 87, platelet count of 2 25, polys of 50%, lymphocytes 27%, monocytes 8%, eosinophils 4%. PT of 13.7, INR of 1.24. She had a sodium 145, potassium 3.7, chloride 116, bicarb 22, BUN of 50, creatinine of 1.12, down from 1.49 ye sterday, glucose 88, calcium is 7.9, phosphorus 2.4, magnesium 1.9. Yesterday, the patient has a tot al bilirubin of 0.3, direct bilirubin 0.1, AST 11, ALT 13, alkaline phosphatase 64. Troponin I is no rmal at 7.5. B type natriuretic peptide elevated at 222, consistent with mild CHF. Total protein 5. 6, albumin 3.0, globulin 2.6, triglycerides 145, cholesterol 108, LDL 49, HDL 30, lipase 59. TSH of 4.13, free T4 of 0.85, cortisol of 10.53. UA shows some trace leukocyte esterase, 5-10 white blood c ells, less than 5 squamous epithelial cells, less than 20 bacteria. COVID-19 testing was negative. Chest x-ray was negative. Impression: 1.Hematochezia. 2.Anemia. Hemoglobin down to 7.1. 3.Hypotension and syncope. 4.History of anemia. 5.Bipolar disorder with depression and schizoaffective disease. 6.Hypothyroidism. 7.Generalized anxiety disorder. 8.Peptic ulcer disease in the past with bleed. 9.Back pain. 10.Serotonin syndrome. Recommendations: 1.Proceed with esophagogastroduodenoscopy and colonoscopy. 2.Serial H and H, and transfuse p.r.n. 3.IV fluids and continue resuscitation at this time. Also continue PPI. 4.Continue PPI therapy. ALLEN/PAYAM Voice ID: [id number] Report ID: [id number]
--- OUTSIDE RECORDS SUMMARY | 2022-04-07 02:31 | XMS REPORT | Continuity of Care Document ---
:1955 Author Organization [facility] t Address [address] [place] [address] Care Team Providers Name Role Phone EULOGIO MCKNIGHT Primary Care Physician Unavailable PAUL SANTOS Attending Clinician Unavailable EULOGIO MCKNIGHT Attending Clinician Unavailable Eulogio Mcknight MD Attending Clinician BOB Attending Clinician Unavailable BONIFACIO Attending Clinician Unavailable PARADISE GRIFFITHS Attending Clinician Unavailable PAUL SANTOS Admitting Clinician Unavailable BOB Admitting Clinician Unavailable GRACE KIM Admitting Clinician Unavailable SHERLY Admitting Clinician Unavailable PARADISE GRIFFITHS Admitting Clinician Unavailable Problems Condition Condition Condition Status Onset Resolution Last Treating Co mments Source Name Details Category Date Date Treatment Clinician Date Altered Altered Disease Active Univers mental mental 4-26 ity of status status 00:00: [address] Allergies, Adverse Reactions, Alerts Allergy Allergy Status Severity Reaction(s) Onset Inactive Treating Comm ents Source Name Type Date Date Clinician NO KNOWN Drug Active Univers ALLERGIE Class ity of S [facility] NO KNOWN Allergy Active [facility] ALLERGIE S Social History Social Habit Start Date Stop Date Quantity Comments Source History SDAZ University o f Alcohol Std Drinks [place] [facility] History SDAZ University o f Alcohol Binge [place] [facility] History SDAZ University o f Alcohol Comment [place] [facility] Exposure to 2022-02-05 2022-02-15 Not sure University of SARS-CoV-2 (event) 00:00:00 14:30:00 [facility] Tobacco use and 2022-01-11 2022-01-11 Never used Universit y of exposure 00:00:00 00:00:00 [facility] Alcohol intake 2022-01-11 2022-01-11 Lifetime University of 00:00:00 00:00:00 non-drinker [facility] (finding) [place] Cigarettes smoked 2022-01-11 2022-01-11 Univers ity of current (pack per 00:00:00 00:00:00 [facility] [place] [facility] ) - Reported Branch History SDOH 2021-05-07 2021-05-07 1 University o f Alcohol Frequency 00:00:00 00:00:00 [facility] Sex Assigned At [birth year] Universit y of 00:00:00 00:00:00 [facility] Smoking Status Start Date Stop Date Source Current every day smoker 2022-01-11 00:00:00 Uni versity of [facility] Medications Ordered Filled Start Stop Current Ordering Indication Dosage Frequency Signature Comments Components Source Medication Medication Date Date Medication? Clinician (SIG) Name Name busPIRone Yes [id number] 10mg Take 1 Un louie 10 mg 5-31 tablet by ity of tablet 00:00: mouth 2 [place] 00 (two) Medical times [place] daily. lisinopriL Yes [id number] 40mg Take 1 U nivers 40 mg 5-31 tablet by ity of tablet 00:00: mouth [place] 00 daily. Medical Branch levothyroxi 2020-09 Yes [id number] 150ug Take 1 Univers ne 150 mcg 1-29 tablet by ity of tablet 00:00: mouth [place] 00 every Medical morning. Branch buPROPion 2020-09 Yes [id number] 150mg Take 1 Univers XL 1-29 tablet by ity of (WELLBUTRIN 00:00: mouth [place] XL) 150 mg 00 daily. Medical 24 hr Branch tablet busPIRone 5 2020-09- No [id number] 5mg Take 1 Univers mg tablet 1-29 05-31 tablet by ity of 00:00: 00:00 mouth 2 [place] 00 :00 (two) Medical times Branch daily. lisinopriL 2020-09 No [id number] 20mg Take 1 Univers 20 mg 10-16 tablet by ity of tablet 00:00: 00:00 mouth [place] 00 :00 daily. [facility] Vital Signs Vital Name Observation Time Observation Value Comments Source Systolic blood 2022-02-15 19:41:00 183 mm[Hg] Asyaer mary [facility] Diastolic blood 2022-02-15 19:41:00 101 mm[Hg] Saurav rsedgar [facility] Heart rate 2022-02-15 19:40:00 90 /min [facility] Body height 2022-02-15 19:40:00 170.2 cm [facility] Body weight 2022-02-15 19:40:00 59.875 kg [facility] BMI 2022-02-15 19:40:00 20.67 kg/m2 [facility] Procedures This patient has no known procedures. Encounters Start End Encounter Admission Attending Care Care Encounter Source Date/Time Date/Time Type Type Clinicians Facility Department ID 2022-04-06 Inpatient [facility] [id number] [facility] 07:42:48 [facility] 2021-06-23 Inpatient ER RISHABH SANTOS Gastro [id number] [facility] 01:38:07 [place] 2022-02-15 2022-02-15 Outpatient R JUAN LUIS [facility] [id number] Univers 14:30:00 16:20:37 [facility] 2022-02-15 2022-02-15 [facility] [id number] Univers 14:30:00 15:00:00 Visit [facility] [id number] it y of Eulogio QUINTERO [id number] Mark as NATE?BLEA [id number] Ms sanya [address] MEDICAL OFFICE BUILDING 2022-01-11 2022-01-12 Inpatient X BOB [facility] [id number] Univers 02:24:00 14:45:00 CLA[facility] Results Test Description Test Time Test Comments Results Result [facility] e Comments TISSUE EXAM 2020-04-21 Surgical Pathology Report 16:49:00 Case: [id number] Authorizing Provider: Felix Banks MD Collected: 04/18/2020 02:34 PM Ordering Location: [address] Received: 04/20/2020 08:22 AM Service Pathologist: [...] see comment Signing Pathologist Direct Phone Line: [phone] y signed by Keyona Collado MD on 04/21/2020 at 4:49 PMSpecimen C. The features are nonspecific and may represent reflux associated changes in the appropriate clinical and endoscopic setting.[id number] x3, 40556Iowq deficiency anemia.A. DuodenumB. Gastric biopsyC. Esophagus biopsy [...] evaluated Immunohistochemistry technical testing was performed at [facility], Pathology Laboratory where it was [...] NOT 1092) ACCURATE CRE ATININE CLEARANCE IN SC EDICTING GLOMERULAR FILT RATION RATE. ESTIMATED GFR IS NOT APPLICABLE FOR DIALYSIS PATIENTS. Gas Pump Attendant ID - PIAYA LCBC (HEMOGRAM ONLY)2020-04-19 05:45:00 [...] WBC 0-0 (BEAKER) (test code = 413) [id number] 05:41:00 Test Item Value Reference Range Interpretation Comments CORTISOL, TOTAL (BEAKER) (test code 7.1 ug/dL 3.7-19.4 = 2755) Gas Pump Attendant ID - PIAYA LBASIC METABOLIC [id number] 04:01:00 Test Item Value Reference Range Interpretation [...] S NOT APPLICABLE FOR DIALYSIS PATIEN TS. Gas Pump Attendant ID - EDASIHEMOGLOBIN AND [id number] 03:00:00 Test Item Value Reference Range Interpretation Comments HEMOGLOBIN (BEAKER) (test code = 7.7 GM/DL 11.2-15.7 L 410) HEMATOCRIT (BEAKER) (test code = 25.7 % 34.1-44.9 L 411) Gas Pump Attendant ID - [id number] (HEMOGRAM ONLY)2020-04-18 03:00:00 Test [...] 0-0 (BEAKER) (test code = 413) SARS-COV2/RT-PCR ([facility])2020-04-17 14:53:00 Test Item Value Reference Range Interpretation Comments SARS-COV2/RT-PCR (test Negative Not Detected, Negative, code = 7182497) See external report for linked test SARS-COV-2 PERFORMING LAB [facility] LIANA (test code = 3755978) Negative result for this test determines that [...] 564(g) of the Act.Fact Sheet for Healthcare Providers:https://www.[employer]/sites/default/files/product/documents/Fact_Shee c_RN_Lejblwsje_Ahxb_PRLK-BmE-7.pdfFact Sheet for Healthcare Patients:https://www.[employer]/sites/default/files/product/ documents/Xxcf_Qtemq_Kbfwpbjt_Mzvs_LBAH-CyP-4.pdfPerforming Laboratory:[facility], [place] [address]FZ, BRAIN, WITHOUT [id number] 11:46:00FINAL REPORT CT, BRAIN, WITHOUT CONTRAST INDICATION: [...] Robert MDReport Verified Date/Time: 04/17/2020 11:46:51 ReadingLocation: [facility] B1 C013V Neuro Reading Room TROPONIN [id number] 10:30:00 Test Item Value Reference Range Interpretation [...] failure, acidosis, acute neurological disease, and persistent tachyarrhythmia.Gas Pump Attendant ID - [id number] 10:24:00 Test Item Value Reference Range Interpretation Comments LIPASE (BEAKER) (test code = 749) 30 U/L 8-78 Gas Pump Attendant ID - NTPCOMPREHENSIVE METABOLIC [id number] 10:17:00 Test Item Value Reference Range Interpretation [...] S NOT APPLICABLE FOR DIALYSIS PATIEN TS. Gas Pump Attendant ID - [id number] 09:59:00 Test Item Value Reference Range Interpretation Comments FERRITIN (BEAKER) (test code = 361) < ng/mL 5.00-275.00 L Gas Pump Attendant ID - NTPTSH/FREE T4 IF [id number] 09:50:00 Test Item Value Reference Range Interpretation Comments THYROID STIMULATING HORMONE 4.140 uIU/mL 0.350-4.940 (BEAKER) (test code = 772) Gas Pump Attendant ID - NTPVITAMIN B12 AND [id number] 09:50:00 Test Item Value Reference Range Interpretation Comments VITAMIN B12 (BEAKER) (test code = 332 pg/mL 213-816 774) FOLATE (BEAKER) (test code = 362) 6.20 ng/mL >=7.00 L Gas Pump Attendant ID - NTPCBC W/PLT COUNT & AUTO [id number] 09:28:00 Test Item Value Reference Range Interpretation [...] % 20-55 L (test code = 2590) Gas Pump Attendant ID - NTPPROTHROMBIN TIME/[id number] 09:10:00 Test Item Value Reference Range Interpretation [...] mechanical heart valves.CBC W/PLT COUNT & AUTO [id number] 07:04:00 Test Item Value Reference Range Interpretation [...] (BEAKER) (test code = 2801) BASIC METABOLIC [id number] 06:54:00 Test Item Value Reference Range Interpretation [...] APPLICABLE FOR DIALYSIS PATIEN TS. HEMOGLOBIN AND [id number] 23:13:00 Test Item Value Reference Range Interpretation Comments HEMOGLOBIN (BEAKER) (test code = 7.8 GM/DL 11.2-15.7 L 410) HEMATOCRIT (BEAKER) (test code = 25.1 % 34.1-44.9 L 411) HEMOGLOBIN AND [id number] 18:29:00 Test Item Value Reference Range Interpretation Comments HEMOGLOBIN (BEAKER) (test code = 7.6 GM/DL 11.2-15.7 L 410) HEMATOCRIT (BEAKER) (test code = 24.4 % 34.1-44.9 L 411) HEMOGLOBIN AND [id number] 09:57:00 Test Item Value Reference Range Interpretation Comments HEMOGLOBIN (BEAKER) (test code = 7.2 GM/DL 11.2-15.7 L 410) HEMATOCRIT (BEAKER) (test code = 23.2 % 34.1-44.9 L 411) [id number] 05:50:00 Test Item Value Reference Range Interpretation Comments PHOSPHORUS (BEAKER) (test code = 2.9 mg/dL 2.3-4.7 604) [id number] 05:50:00 Test Item Value Reference Range Interpretation Comments MAGNESIUM (BEAKER) (test code = 2.0 mg/dL 1.6-2.6 627) BASIC METABOLIC [id number] 05:50:00 Test Item Value Reference Range Interpretation Comments SODIUM (BEAKER) 140 meq/L 136-145 (test code = 381) POTASSIUM (BEAKER) 3.6 meq/L 3.5-5.1 (test code = 379) CHLORIDE (BEAKER) 112 meq/L 98-107 H (test code = 382) CO2 (BEAKER) (test 22 meq/L code = 355) BLOOD UREA NITROGEN 16 [...] APPLICABLE FOR DIALYSIS PATIEN TS. HEPATIC FUNCTION [id number] 05:50:00 Test Item Value Reference Range Interpretation [...] 6-55 347) CBC W/PLT COUNT & AUTO [id number] 05:40:00 Test Item Value Reference Range Interpretation [...] PERCENT (BEAKER) (test code = 2801) PROTHROMBIN [id number] 05:29:00 Test Item Value Reference Range Interpretation [...] wiht mechanical heart valves.RAD, ABDOMEN/KUB, 1 VIEW [id number] 02:43:00Reason for exam:->bloatingShould this be performed at [...] Verified Date/Time: 06/16/2019 02:43:11 RAPID INFLUENZA A&B [id number] 01:49:00 Test Item Value Reference Range Interpretation Comments RAPID INFLUENZA A AG (BEAKER) Negative Negative, Inconclusive (test code = 1622) RAPID INFLUENZA B AG (BEAKER) Negative Negative, Inconclusive (test code = 1623) RAD, CHEST, 1 VIEW, NON [id number] 01:08:00Reason for exam:->coughShould this be performed at [...] Guille Barragan Verified Date/Time: 06/16/2019 01:08:45 BLOOD [id number] 08:00:00 Test Item Value Reference Range Interpretation Comments CULTURE (BEAKER) (test No growth in 5 days code = 1095) BLOOD [id number] 20:01:00 Test Item Value Reference Range Interpretation Comments CULTURE (BEAKER) (test No growth in 5 days code = 1095) TISSUE [id number] 12:58:00Surgical Pathology Report Case: [id number] Authorizing Provider: Len Waggoner, Collected: 06/10/2019 1111 Ordering Location: [place] [address] ICU Received: 06/10/2019 1601 Pathologist: Fernando Plascencia [...] DYSPLASIA/ MALIGNANCY Signing Pathologist Direct Phone Line: [phone] signed by Fernando Plascencia MD on 06/12/2019 at 12:58 PMB. Detached/ loosely adherent refractile foreign material is seen in the biopsy, likely representing pill fragments. Clinical and endoscopic correlation is recommended.[id number] bleedingA. Specimen is received in formalin labeled [...] evaluated Immunohistochemistry technical testing was performed at [facility] Pathology Laboratory where it was [...] certified under the Clinical Laboratory Improvement Amendments gs0316 (CLIA-88) as qualified to perform high complexity clinical laboratory testing.POCT- GLUCOSE [id number] 11:45:00 Test Item Value Reference Range Interpretation Comments POC-GLUCOSE METER 85 mg/dL 70-110 TESTED AT [place] [address] ([facility]) (test code = AUDI Pollock [facility] [address] 1538) T4, [id number] 08:58:00 Test Item Value Reference Range Interpretation Comments FREE T4 (BEAKER) (test code = 655) 0.58 ng/dL 0.70-1.48 L POCT-GLUCOSE [id number] 08:02:00 Test Item Value Reference Range Interpretation Comments POC-GLUCOSE METER 91 mg/dL 70-110 TESTED AT [place] [address] ([facility]) (test code = AUDI Pollock [facility] [address] 1538) TSH/FREE T4 IF [id number] 06:57:00 Test Item Value Reference Range Interpretation [...] WBC 0-0 (BEAKER) (test code = 413) [id number] 06:42:00 Test Item Value Reference Range Interpretation Comments PHOSPHORUS (BEAKER) (test code = 2.7 mg/dL 2.3-4.7 604) [id number] 06:42:00 Test Item Value Reference Range Interpretation Comments MAGNESIUM (BEAKER) (test code = 2.0 mg/dL 1.6-2.6 627) COMPREHENSIVE METABOLIC [id number] 06:42:00 Test Item Value Reference Range Interpretation [...] NOT APPLICABLE FOR DIALYSIS PATIEN TS. POCT-GLUCOSE [id number] 23:02:00 Test Item Value Reference Range Interpretation Comments POC-GLUCOSE METER 113 mg/dL 70-110 H TESTED AT [place] [address] ([facility]) (test code = AUDI Pollock [facility] 1538) [address] T3, [id number] 18:30:00 Test Item Value Reference Range Interpretation Comments T3 FREE ([facility]) < pg/mL 1.71-3.71 L Testing per formed at [facility] (test code = 908) DIAGNOSTIC S [address] [address] [id number] 18:30:00 Test Item Value Reference Range Interpretation Comments T3 TOTAL ([facility]) 27 ng/dL 48-159 L Testing pe rformed at (test code = 656) [facility] [place] [address] [place] [address] POCT-GLUCOSE [id number] 18:14:00 Test Item Value Reference Range Interpretation Comments POC-GLUCOSE METER 106 mg/dL 70-110 TESTED AT [place] [address] ([facility]) (test code = AUDI Pollock [facility] 1538) [address] HEMOGLOBIN AND [id number] 18:09:00 Test Item Value Reference Range Interpretation Comments HEMOGLOBIN ([facility]) (test code = 8.4 GM/DL 11.2-15.7 L 410) HEMATOCRIT ([facility]) (test code = 26.4 % 34.1-44.9 L 411) POCT-GLUCOSE [id number] 12:28:00 Test Item Value Reference Range Interpretation Comments POC-GLUCOSE METER 132 mg/dL 70-110 H TESTED AT [place] [address] ([facility]) (test code = AUDI Pollock [facility] 1538) [address] CORTISOL,60 [id number] 10:34:00 Test Item Value Reference Range Interpretation Comments CORTISOL BASELINE NETWORKED 8.4 mcg/dL ([facility]) (test code = 2307) CORTISOL 30 MINUTE NETWORKED 16.1 mcg/dL ([facility]) (test code = 2308) CORTISOL, 60 MINUTE ([facility]) 18.2 ug/dL (test code = 1805) ACTH [...] serum cortisollevel 60 minutes after cosyntropin administration. CORTISOL,[id number] 09:20:00 Test Item Value Reference Range Interpretation [...] a study by Stu et al (VIANEY 2000,283(8):1713-45), the ACTH Stimulation Test provides important prognostic [...] = 2.0 mg/dL 1.6-2.6 627) COMPREHENSIVE METABOLIC [id number] 07:16:00 Test Item Value Reference Range Interpretation [...] S NOT APPLICABLE FOR DIALYSIS PATIEN TS. [id number] 07:01:00 Test Item Value Reference Range Interpretation [...] (test code = 2590) VITAMIN B12 AND [id number] 06:14:00 Test Item Value Reference Range Interpretation Comments VITAMIN B12 (BEAKER) (test code = 285 pg/mL 213-816 774) FOLATE (BEAKER) (test code = 362) 6.3 ng/mL >=7.0 L [id number] 06:05:00 Test Item Value Reference Range Interpretation Comments CORTISOL, TOTAL (BEAKER) (test code 3.2 ug/dL 3.7-19.4 L = 2755) HIV-1 ANTIGEN WITH HIV-1/2 [id number] 06:04:00 Test Item Value Reference Range Interpretation Comments HIV-1 ANTIGEN WITH HIV 1\\T\\2 Nonreactive Nonreactive ANTIBODY (2) (BEAKER) (test code = 2586) [id number] 06:03:00 Test Item Value Reference Range Interpretation [...] 0-0 (BEAKER) (test code = 413) RETICULOCYTE [id number] 05:08:00 Test Item Value Reference Range Interpretation Comments RETICULOCYTE COUNT PCT (BEAKER) (test 2.9 % 0.5-1.7 H code = 575) POCT-GLUCOSE [id number] 22:01:00 Test Item Value Reference Range Interpretation Comments POC-GLUCOSE METER 132 mg/dL 70-110 H TESTED AT [facility] 6720 (BEAKER) (test code = AUDI ESCALERA 1531) [address] HEMOGLOBIN AND [id number] 21:02:00 Test Item Value Reference Range Interpretation Comments HEMOGLOBIN (BEAKER) (test code = 8.1 GM/DL 11.2-15.7 L 410) HEMATOCRIT (BEAKER) (test code = 25.5 % 34.1-44.9 L 411) T4, [id number] 11:38:00 Test Item Value Reference Range Interpretation Comments FREE T4 (BEAKER) (test code = 655) 0.46 ng/dL 0.70-1.48 L TSH/FREE T4 IF [id number] 11:00:00 Test Item Value Reference Range Interpretation Comments THYROID STIMULATING HORMONE 34.88 uIU/mL 0.35-4.94 H (BEAKER) (test code = 772) HEMOGLOBIN AND [id number] 10:21:00 Test Item Value Reference Range Interpretation Comments HEMOGLOBIN (BEAKER) (test code = 8.9 GM/DL 11.2-15.7 L 410) HEMATOCRIT (BEAKER) (test code = 27.3 % 34.1-44.9 L 411) [id number] 05:22:00 Test Item Value Reference Range Interpretation Comments PHOSPHORUS (BEAKER) (test code = 2.9 mg/dL 2.3-4.7 604) [id number] 05:22:00 Test Item Value Reference Range Interpretation Comments MAGNESIUM (BEAKER) (test code = 2.0 mg/dL 1.6-2.6 627) COMPREHENSIVE METABOLIC [id number] 05:22:00 Test Item Value Reference Range Interpretation [...] U/L 29-200 code = 380) LACTIC ACID, [id number] 05:09:00 Test Item Value Reference Range Interpretation [...] 0-0 (BEAKER) (test code = 413) POCT-GLUCOSE [id number] 00:51:00 Test Item Value Reference Range Interpretation Comments POC-GLUCOSE METER 88 mg/dL 70-110 TESTED AT [facility] 6720 (BEAKER) (test code = [place] [id number] 1538) CHLORIDE, RANDOM [id number] 19:35:00 Test Item Value Reference Range Interpretation Comments CHLORIDE URINE (BEAKER) (test code = 80 meq/L 682) Reference Range: No NormalsCREATININE, RANDOM [id number] 19:35:00 Test Item Value Reference Range Interpretation Comments CREATININE URINE (BEAKER) (test 74.8 mg/dL code = 375) Reference Range: No NormalsSODIUM, RANDOM [id number] 19:35:00 Test Item Value Reference Range Interpretation Comments SODIUM URINE (BEAKER) (test code = 97 meq/L 243) Reference Range: No NormalsURINALYSIS W/ REFLEX URINE [id number] 18:59:00 Test Item Value Reference Range Interpretation [...] 514) SOURCE(BEAKER) (test code = 2795) POCT-GLUCOSE [id number] 18:16:00 Test Item Value Reference Range Interpretation Comments POC-GLUCOSE METER 71 mg/dL 70-110 TESTED AT [facility] 6720 (BEAKER) (test code = BANNERCARLY Pollock [facility] [address] 1538) T4, [id number] 18:06:00 Test Item Value Reference Range Interpretation Comments FREE T4 (BEAKER) (test code = 655) < ng/dL 0.70-1.48 L HEPATIC FUNCTION [id number] 17:52:00 Test Item Value Reference Range Interpretation [...] 14 U/L 6-55 347) TSH/FREE T4 IF [id number] 17:49:00 Test Item Value Reference Range Interpretation Comments THYROID STIMULATING HORMONE 125.05 uIU/mL 0.35-4.94 H (BEAKER) (test code = 772) [id number] 16:49:00 Test Item Value Reference Range Interpretation Comments MAGNESIUM (BEAKER) (test code = 1.8 mg/dL 1.6-2.6 627) BASIC METABOLIC [id number] 16:49:00 Test Item Value Reference Range Interpretation [...] S NOT APPLICABLE FOR DIALYSIS PATIEN TS. [id number] 16:41:00 Test Item Value Reference Range Interpretation [...] INR is2.5-3.5 for patients wiht mechanical heart valves.[id number] 16:41:00 Test Item Value Reference Range Interpretation [...] code = 413) RAD, ABDOMEN/KUB, 1 VIEW [id number] 16:14:00Reason for exam:->abdominal distentionShould this be performed [...] Gutierrezeport Verified Date/Time: 06/09/2019 16:14:10 Reading Location: [facility] B1 C013T Transitional Reading Room Electronicallysigned by: MOSHE GUTIERREZ M.D. on 06/09/2019 04:14 PM
== END 2022-04-02 13:24 | disposition home or self-care (01) | DRG 377 ==
LOC: ER 07:17 → ERHOLD 11:37 → 2ND 19:16 → OBSVTOIN 03-31 13:29
PROVIDERS: ADMIT Internal Medicine; ATTEND Internal Medicine
PROC: 30233N1 Transfusion of Nonautologous Red Blood Cells into Peripheral Vein, Percutaneous Approach (ICD-10-PCS; 2022-03-31)
PROC: 0DJD8ZZ Inspection of Lower Intestinal Tract, Via Natural or Artificial Opening Endoscopic (ICD-10-PCS; principal; 2022-04-01 16:15)
PROC: 0DB78ZX Excision of Stomach, Pylorus, Via Natural or Artificial Opening Endoscopic, Diagnostic (ICD-10-PCS; 2022-04-01 16:15)
DX: K25.0 Acute gastric ulcer with hemorrhage (principal); G93.41 Metabolic encephalopathy; I95.9 Hypotension, unspecified; F31.9 Bipolar disorder, unspecified; F32.A Depression, unspecified; F41.9 Anxiety disorder, unspecified; E03.9 Hypothyroidism, unspecified; R55 Syncope and collapse; N18.30 Chronic kidney disease, stage 3 unspecified; K44.9 Diaphragmatic hernia without obstruction or gangrene; K22.2 Esophageal obstruction; K29.81 Duodenitis with bleeding; K57.31 Diverticulosis of large intestine without perforation or abscess with bleeding; D64.9 Anemia, unspecified; Z20.822 Contact with and (suspected) exposure to COVID-19
CPT/HCPCS: 36415; 36430; 70450; 71045; 72125; 80048; 80061; 80076; 81003; 81015; 82533; 82941; 82947; 83690; 83735; 83880; 84100; 84439; 84443; 84484; 85014; 85018; 85025; 85610; 86850; 86900; 86901; 86922; 87086; 87088; 88305; 88312; 93005; 97161; 99285; C9113; G0378; J2704; J2765; J3490; J7030; J7042; J7050; J7120; P9016; U0003

== ENCOUNTER 2022-04-06 00:33 | Emergency (ER) | payer SELFPAY ==
[2022-04-06] MEDS ORDERED: PANTOPRAZOLE 40 MG INJ ONE (01:49)
[2022-04-06] MEDS ORDERED: NA CHLORIDE 0.9% 250 ML ONE (01:49)
[2022-04-06] MEDS ORDERED: NA CHLORIDE 0.9% 1,000 ML ONE (01:50)
[2022-04-06 02:57] LABS: Urine Blood Negative (Negative); Urine Glucose Negative (Negative); Urine Protein Negative (Negative); Urine Specific Gravity 1.015 (1.005-1.030)
--- NOTE | 2022-04-06 03:22 | EDPHYS ---
Physician Documentation [facility] Name: Rhea Carballo Age: 66 yrs Sex: Female : 1955 Arrival Date: 04/06/2022 Time: 00:44 Bed 4 Private MD: ED Physician Nigel Briggs HPI: 04/06 03:18 This 66 yrs old Female presents to ER via EMS with complaints of black stool. rn 03:18 The patient presents to the emergency department with rectal bleeding, a moderate rn amount, melena. Onset: The symptoms/episode began/occurred yesterday. Abdominal pain: none is appreciated. Modifying factors: The symptoms are alleviated by nothing, the symptoms are aggravated by nothing. Associated signs and symptoms: Pertinent positives: dizziness when standing, Pertinent negatives: fever, shortness of breath, syncope. Severity of symptoms: At their worst the symptoms were moderate in the emergency department the symptoms are unchanged. The patient has experienced similar episodes in the past. The patient has been recently seen by a physician:. Pt reports recently evaluated for intestinal bleeding, told had gastric ulcers, transfused, sent home. Last night was at game room, reported feeling lightheaded and dizzy, got home, couldn't make it to bathroom, defecated on driveway, arrived here soiled with melena. . Historical: - Allergies: 01:33 HYDROCODONE; as6 - PMHx: 01:33 chronic back pain; Depression; GI Bleed; Hypothyroidism; SEROTONIN SYNDROME; as6 - Immunization history:: Adult Immunizations unknown. - Social history:: Smoking status: Reported history of juuling and/or vaping. - Family history:: not pertinent. - Hospitalizations: : The patient was recently seen at [facility]. ROS: 03:18 Constitutional: Negative for fever, chills, and weight loss, Eyes: Negative for injury, rn pain, redness, and discharge, Neck: Negative for injury, pain, and swelling, Cardiovascular: Negative for chest pain, palpitations, and edema, Respiratory: Negative for shortness of breath, cough, wheezing, and pleuritic chest pain, Abdomen/GI: Negative for abdominal pain, nausea, vomiting, + dark stool MS/Extremity: Negative for injury and deformity, Skin: Negative for injury, rash, and discoloration, Neuro: Negative for headache, numbness, tingling, and seizure. Exam: 03:18 Constitutional: This is a well developed, well nourished patient who is awake, alert, rn and in no acute distress. Head/Face: Normocephalic, atraumatic. ENT: dry MM Cardiovascular: Regular rate and rhythm. No pulse deficits. Respiratory: No increased work of breathing, no retractions or nasal flaring. Abdomen/GI: soft, non-tender Skin: Warm, dry MS/ Extremity: Pulses equal, no cyanosis. Neuro: Awake and alert, GCS 15 Vital Signs: 01:55 BP 118 / 60; Pulse 95; Resp 19 S; Temp 98.1(O); Pulse Ox 100% on R/A; Weight 61.23 kg as6 (R); Height 5 ft. 8 in. (172.72 cm) (R); Pain 5/10; 02:56 BP 124 / 60; Pulse 87; Resp 18 S; Pulse Ox 100% on R/A; as6 04:55 BP 110 / 53; Pulse 81; Resp 17; Pulse Ox 100% on R/A; kd3 06:50 BP 136 / 84; Pulse 87; Resp 26 S; Pulse Ox 100% on R/A; as6 08:00 BP 98 / 68; Pulse 87; Resp 18; Pulse Ox 100% ; kr3 09:10 BP 101 / 25; Pulse 80; Resp 16; Temp 98.1; Pulse Ox 100% ; kr3 10:00 BP 116 / 64; Pulse 82; Resp 16; Temp 97.2; Pulse Ox 100% on R/A; kr3 01:55 Body Mass Index 20.53 (61.23 kg, 172.72 cm) as6 MDM: 00:44 Patient medically screened. rn 03:18 Differential diagnosis: gastritis, gastric ulcer, upper GIB. Data reviewed: vital rn signs, nurses notes, old medical records, lab test result(s), and as a result, I will admit patient. Counseling: I had a detailed discussion with the patient and/or guardian regarding: the historical points, exam findings, and any diagnostic results supporting the discharge/admit diagnosis, lab results, the need for further work-up and treatment in the hospital, the need to transfer to another facility, for higher level of care, [facility] does not immediately have the required specialist. 05:09 ED course: Accepted for transfer to [facility]. . rn 06:08 ED course: Accepted for transfer by hospitalist at [facility] but GI there rn states should be transferred to medical center for higher level of care and possible need for enteroscopy. . 07:57 ED course: Discussed caes with Dr Kemp and he will consult on patient.. ms3 08:10 ED course: Discussed case with Dr Norwood at [facility] and she accepts patient.. ms3 04/06 00:45 Order name: CBC with Diff; Complete Time: 06:05 rn 04/06 00:45 Order name: CMP; Complete Time: 06:05 rn 04/06 00:45 Order name: Lipase; Complete Time: 06:05 rn 04/06 00:45 Order name: PT-INR; Complete Time: 06:05 rn 04/06 00:45 Order name: Ptt, Activated; Complete Time: 06:05 rn 04/06 00:45 Order name: Lactate; Complete Time: 06:05 rn 04/06 00:45 Order name: SARS-COV-2 RT PCR (Document "Date of Onset" if Symptomatic); Complete Time: rn 06:05 04/06 02:57 Order name: Urine Dipstick-Ancillary; Complete Time: 03:06 EDIL 04/06 03:25 Order name: Type And Screen tw5 04/06 06:03 Order name: Type and Screen [facility] 04/06 06:46 Order name: Packed RBC Leukored EDIL 04/06 00:45 Order name: IV Saline Lock; Complete Time: 01:54 rn 04/06 00:45 Order name: Labs collected and sent; Complete Time: 02:46 rn 04/06 00:45 Order name: Urine Dipstick-Ancillary (obtain specimen); Complete Time: 02:55 rn Administered Medications: 01:54 Drug: NS 0.9% 1000 ml Route: IV; Rate: 1 bolus; Site: left antecubital; as6 10:21 Follow up: Response: No adverse reaction; IV Status: Completed infusion; IV Intake: kr3 1000ml 01:54 Drug: ProTONIX (pantoprazole) 40 mg Route: IVP; Site: left antecubital; as6 04:55 Follow up: Response: No adverse reaction kd3 01:55 Drug: ProTONIX (pantoprazole) 8 mg/hr Route: IV; Rate: 25 ml/hr; Site: left antecubital;as6 10:07 Follow up: Response: No adverse reaction; IV Status: Infusion continued upon transfer; kr3 IV Intake: 200ml Disposition Summary: 04/06/22 03:21 Transfer Ordered Reason: Higher level of care rn Condition: Stable rn Problem: an ongoing problem rn Symptoms: are 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 man ms3 08:11 03:21 [facility] rn ms3 10:14 08:11 ms3 ll1
--- NOTE | 2022-04-06 03:22 | ER ---
Nurse's Notes [facility] Name: Rhea Carballo Age: 66 yrs Sex: Female : 1955 Arrival Date: 04/06/2022 Time: 00:44 Bed 4 Private MD: Diagnosis: Melena;GI Bleed/ Gastrointestinal hemorrhage, unspecified;Anemia, unspecified Presentation: 04/06 01:24 Chief complaint: EMS states: " We got a call from her son saying that she was acting tw5 really weird when she returned home from the game room. She defecated in the drive way and was clutching a bunch of nolasco like her life depended on it. When we arrived on scene she was in a back room naked trying to put on a dress but wasn't having much success. She still had stool on her.". Initial Sepsis Screen:. Risk Assessment: Do you want to hurt yourself or someone else? Patient reports no desire to harm self or others. 01:24 Method Of Arrival: EMS: [facility] tw5 01:24 Acuity: МАРИНА 3 tw5 01:33 Coronavirus screen: At this time, the client does not indicate any symptoms associated as6 with coronavirus-19. Ebola Screen: No symptoms or risks identified at this time. Onset of symptoms is unknown. 02:58 Initial Sepsis Screen: Does the patient meet any 2 criteria? No. Patient's initial as6 sepsis screen is negative. Does the patient have a suspected source of infection? No. Patient's initial sepsis screen is negative. Historical: - Allergies: 01:33 HYDROCODONE; as6 - PMHx: 01:33 chronic back pain; Depression; GI Bleed; Hypothyroidism; SEROTONIN SYNDROME; as6 - Immunization history:: Adult Immunizations unknown. - Social history:: Smoking status: Reported history of juuling and/or vaping. - Family history:: not pertinent. - Hospitalizations: : The patient was recently seen at [facility]. Screenin:57 Abuse screen: Denies threats or abuse. Denies injuries from another. Nutritional as6 screening: No deficits noted. Tuberculosis screening: No symptoms or risk factors identified. Fall Risk Mental Status- Overestimates/Forgets Limitations (15 pts.). Total Seth Fall Scale indicates No Risk (0-24 pts). Assessment: 01:20 General: Patient was clutching money in hand and had some rolled up under her. Money tw5 was counted at bedside with EMS and [place] and charge master coordinator. Money counted with patient. Belongings given to security. Patient states " I cashed a 20,000 dollar check". It was explained to the patient she had $2380 on her at the time of arrival to the emergency room. She further stated some of the 20,000 must have been placed in her bank and some must be at home. It was repeated to patient that only $2380 was on her person at time of arrival to ER. She then stated "okay, that must be right then.". 01:40 General: Appears unkempt, Behavior is cooperative, restless. Pain: Complains of pain in as6 head. Neuro: Level of Consciousness is awake, alert, obeys commands, Reports headache. Respiratory: Respiratory effort is even, unlabored. 07:00 Reassessment: No changes from previously documented assessment. Patient and/or family kr3 updated on plan of care and expected duration. Pain level reassessed. report received from manager night RN. 08:00 Reassessment: No changes from previously documented assessment. Patient and/or family kr3 updated on plan of care and expected duration. Pain level reassessed. 09:00 Reassessment: No changes from previously documented assessment. Patient and/or family kr3 updated on plan of care and expected duration. Pain level reassessed. 10:00 Reassessment: No changes from previously documented assessment. Patient and/or family kr3 updated on plan of care and expected duration. Pain level reassessed. Vital Signs: 01:55 BP 118 / 60; Pulse 95; Resp 19 S; Temp 98.1(O); Pulse Ox 100% on R/A; Weight 61.23 kg as6 (R); Height 5 ft. 8 in. (172.72 cm) (R); Pain 5/10; 02:56 BP 124 / 60; Pulse 87; Resp 18 S; Pulse Ox 100% on R/A; as6 04:55 BP 110 / 53; Pulse 81; Resp 17; Pulse Ox 100% on R/A; kd3 06:50 BP 136 / 84; Pulse 87; Resp 26 S; Pulse Ox 100% on R/A; as6 08:00 BP 98 / 68; Pulse 87; Resp 18; Pulse Ox 100% ; kr3 09:10 BP 101 / 25; Pulse 80; Resp 16; Temp 98.1; Pulse Ox 100% ; kr3 10:00 BP 116 / 64; Pulse 82; Resp 16; Temp 97.2; Pulse Ox 100% on R/A; kr3 01:55 Body Mass Index 20.53 (61.23 kg, 172.72 cm) as6 ED Course: 00:44 Patient arrived in ED. rn 00:44 Mino Morrison MD is Attending Physician. rn 00:54 Jeana Miller, MADISON is Primary Nurse. kd3 01:26 Triage completed. tw5 01:26 Patient has correct armband on for positive identification. Placed in gown. Bed in low tw5 position. Call light in reach. Side rails up X 1. Valuables inventory done. Locked in safe. See valuables checklist. Client placed on continuous cardiac and pulse oximetry monitoring. NIBP monitoring applied. Door closed. Noise minimized. Moved to private room. 01:55 Inserted saline lock: 20 gauge in left antecubital area, using aseptic technique. Blood wm collected. 01:56 Lactate Sent. wm 01:56 SARS-COV-2 RT PCR (Document "Date of Onset" if Symptomatic) Sent. wm 01:56 COVID swab sent to lab. wm 02:58 Arm band placed on. as6 04:12 initiated a transfer with Ceci Berry from [facility]. mw2 05:[address] Morrison with the Doctor from [facility]. mw2 06:[address] Morrison with the GI Doctor passenger conductor. mw2 06:09 Inserted saline lock: 20 gauge in right forearm, using aseptic technique. kd3 06:12 initiated a transfer with Rubi Ernandez from [facility]. mw2 07:02 [facility] denied due to capacity. Now trying [facility]. mw2 07:09 Attending Physician role handed off by Mino Morrison MD ms3 07:09 Nigel Briggs DO is Attending Physician. ms3 07:15 initiated transfer to [facility]. bd 07:24 Primary Nurse role handed off by Jeana Miller, M[place]ISON jl7 07:25 pt denied at [facility] due to no beds at this time, per corinne. initiated bd transfer to [facility]. 07:46 pt denied at [facility] due to no gi passenger conductor, per corinne. bd 07:46 initiated transfer to [facility]. bd 08:05 Assisted with bedpan. Cleaned of incontinence. jw7 08:12 pt accepted in transfer to [facility] by dr castro, admin approval given bd by Corinne Zamudio. 08:19 Cinthya Valdes, MAD[place] is Primary Nurse. kr3 09:48 pt had 2380.00, pt took 100.00 pts son took 100.00 the rest of the money was sent to security. 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 10:05 $200 removed from bag of money patient kept $100.00 on her person and gave $100.00 to kr3 her son. rest of belongings locked back up with security. 10:07 Packed RBC Leukored Sent. kr3 10:07 Type And Screen Sent. kr3 10:19 No provider procedures requiring assistance completed. Patient transferred, IV remains kr3 in place. Administered Medications: 01:54 Drug: NS 0.9% 1000 ml Route: IV; Rate: 1 bolus; Site: left antecubital; as6 10:21 Follow up: Response: No adverse reaction; IV Status: Completed infusion; IV Intake: kr3 1000ml 01:54 Drug: ProTONIX (pantoprazole) 40 mg Route: IVP; Site: left antecubital; as6 04:55 Follow up: Response: No adverse reaction kd3 01:55 Drug: ProTONIX (pantoprazole) 8 mg/hr Route: IV; Rate: 25 ml/hr; Site: left antecubital;as6 10:07 Follow up: Response: No adverse reaction; IV Status: Infusion continued upon transfer; kr3 IV Intake: 200ml Medication: 09:38 Blood products: PRBCs X 1 unit given. see transfusion record for further details, kr3 confusion continued upon on transfer. 10:20 VIS not applicable for this client. kr3 Intake: 10:07 IV: 200ml; Total: 200ml. kr3 10:21 IV: 1000ml; Total: 1200ml. kr3 Outcome: 03:21 ER care complete, transfer ordered by . rn 10:14 Patient left the ED. ll1 10:19 Transferred by ground EMS to [facility], Note: [facility] 7 kr3 10:20 Condition: stable kr3 10:20 Instructed on the need for transfer. Signatures: Anastasiia Trevizo Roman, MD MD rn Bin, Elli, RN RN jl7 [place] AimeePaige mw2 Yvonne Guerra, RN RN ll1 Nigel Briggs DO DO ms3 Tequila Ojeda Tiffany tw5 Kaushik Ji RN RN as6 Jeana Miller RN RN kd3 Martha Sky jw7 Cinthya Valdes RN RN kr3 Corrections: (The following items were deleted from the chart) 01:26 01:24 Acuity: МАРИНА 4 tw5 tw5 06:24 06:12 initiated a transfer with [facility] mw2 mw2
[2022-04-06 05:14] LABS: Absolute Lymphocytes (CBC) 0.6 K/uL (0.7-4.9); Bilirubin Total 0.3 mg/dL (0.2-1.0); Lymphocytes % 6.2 % (15.3-44.8); MCV 90.6 fL (80-100); MPV 8.3 fL (7.6-11.3); Potassium 3.5 mmol/L (3.5-5.1); Protein, Total 5.3 g/dL (6.4-8.2); Protime INR 1.18; RBC Red Blood Cell Count 1.82 M/uL (3.86-4.86)
[2022-04-06 05:27] LABS: Hematocrit 16.5 % (36.0-45.0)
[2022-04-06] MEDS ORDERED: NA CHLORIDE 0.9% 500 ML ONE (09:30)
[2022-04-06 10:23] VITALS: TEMP 98.1; O2SAT 100
[2022-04-06 10:34] VITALS: BP 98/68
--- OUTSIDE RECORDS SUMMARY | 2022-04-07 14:58 | XMS REPORT | Continuity of Care Document ---
:1955 Author Organization Formerly [facility] t Address [address] [place] [address] Care Team Providers Name Role Phone EULOGIO MCKNIGHT Primary Care Physician Unavailable PAUL SANTOS Attending Clinician Unavailable EULOGIO MCKNIGHT Attending Clinician Unavailable Eulogio Mcknight MD Attending Clinician BOB Attending Clinician Unavailable BONIFACIO Attending Clinician Unavailable PARADISE GRIFFITHS Attending Clinician Unavailable PAUL SANTOS Admitting Clinician Unavailable BOB Admitting Clinician Unavailable KIM, GRACE Admitting Clinician Unavailable ALAYNAUNOLIVENTJosue Admitting Clinician Unavailable PARADISE GRIFFITHS Admitting Clinician Unavailable Problems Condition Condition Condition Status Onset Resolution Last Treating Co mments Source Name Details Category Date Date Treatment Clinician Date Altered Altered Disease Active Univers mental mental 4-26 ity of status status 00:00: [place] 00 Medical Branch Allergies, Adverse Reactions, Alerts Allergy Allergy Status Severity Reaction(s) Onset Inactive Treating Comm ents Source Name Type Date Date Clinician NO KNOWN Drug Active Univers ALLERGIE Class ity of S [place] [facility] [place] NO KNOWN Allergy Active [facility] ALLERGIE S Social History Social Habit Start Date Stop Date Quantity Comments Source History SDOH University o f Alcohol Std Drinks [place] [facility] History SDOH University o f Alcohol Binge [place] [facility] History SDOH University o f Alcohol Comment [place] [facility] Exposure to 2022-02-05 2022-02-15 Not sure [facility] SARS-CoV-2 (event) 00:00:00 14:30:00 [facility] Tobacco use and 2022-01-11 2022-01-11 Never used Universit y of exposure 00:00:00 00:00:00 [facility] Alcohol intake 2022-01-11 2022-01-11 Lifetime University of 00:00:00 00:00:00 non-drinker [facility] (finding) [place] Cigarettes smoked 2022-01-11 2022-01-11 Univers ity of current (pack per 00:00:00 00:00:00 [facility]) - Reported Branch History SDOH 2021-05-07 2021-05-07 1 University o f Alcohol Frequency 00:00:00 00:00:00 [facility] Sex Ass[birth year] Universit y of 00:00:00 00:00:00 [facility] Smoking Status Start Date Stop Date Source Current every day smoker 2022-01-11 00:00:00 Uni versity of [facility] Medications Ordered Filled Start Stop Current Ordering Indication Dosage Frequency Signature Comments Components Source Medication Medication Date Date Medication? Clinician (SIG) Name Name busPIRone Yes [id number] 10mg Take 1 Un louie 10 mg 5-31 tablet by ity of tablet 00:00: mouth 2 00 (two) Medical times [place] daily. lisinopriL Yes [id number] 40mg Take 1 U nivers 40 mg 5-31 tablet by ity of tablet 00:00: mouth [place] 00 daily. Medical Branch levothyroxi 2020-09 Yes [id number] 150ug Take 1 Univers ne 150 mcg 1-29 tablet by ity of tablet 00:00: mouth [place] 00 every Medical morning. Branch buPROPion 2020-09 Yes [id number] 150mg Take 1 Univers XL 1-29 tablet by ity of (WELLBUTRIN 00:00: mouth [place] XL) 150 mg 00 daily. Medical 24 hr Branch tablet busPIRone 5 2020-09- No [id number] 5mg Take 1 Univers mg tablet 1-29 05-31 tablet by ity of 00:00: 00:00 mouth 2 [place] 00 :00 (two) Medical times [place] daily. lisinopriL 2020-09- No [id number] 20mg Take 1 [facility] 20 mg 10-16 tablet by ity of tablet 00:00: 00:00 mouth [place] 00 :[address] [facility] Vital Signs Vital Name Observation Time Observation Value Comments Source Systolic blood 2022-02-15 19:41:00 183 mm[Hg] [facility]iver [facility] Diastolic blood 2022-02-15 19:41:00 101 [facility]Hg[facility] 2022-02-15 19:40:00 90 /min [facility] Body height 2022-02-15 19:40:00 170.2 cm [facility] Body weight 2022-02-15 19:40:00 59.875 kg [facility] BMI 2022-02-15 19:40:00 20.67 kg/m2 [facility] Procedures This patient has no known procedures. Encounters Start End Encounter Admission Attending Care Care Encounter Source Date/Time Date/Time Type Type Clinicians Facility Department ID 2022-04-06 Inpatient ER [facility] [id number] [facility] 07:42:48 [facility] 2021-06-23 Inpatient ER SANTOSRISHABH Gastro [id number] [facility] 01:38:07 [place] 2022-02-15 2022-02-15 Outpatient R [facility] [id number] Univers 14:30:00 16:20:37 [facility] 2022-02-15 2022-02-15 [facility] [id number] Univers 14:30:00 15:00:00 Visit [facility] [id number] it y of Eulogio QUINTERO [id number] Mark as NATE?BLEA [id number] Az sanya [address] MEDICAL OFFICE BUILDING 2022-01-11 2022-01-12 Inpatient X BOB [facility] CITLALY [id number] Univers 02:24:00 14:45:00 CLAIRE [facility] Results Test Description Test Time Test Comments Results Result [facility] e Comments TISSUE EXAM 2020-04-21 Surgical Pathology Report 16:49:00 Case: [id number] Authorizing Provider: Felix Banks MD Collected: 04/18/2020 02:34 PM Ordering Location: [address] Received: 04/20/2020 08:22 AM Service Pathologist: [...] see comment Signing Pathologist Direct Phone Line: [phone] y signed by Keyona Collado MD on 04/21/2020 at 4:49 PMSpecimen C. The features are nonspecific and may represent reflux associated changes in the appropriate clinical and endoscopic setting.18232 x3, 29166Uacb deficiency anemia.A. DuodenumB. Gastric biopsyC. Esophagus biopsy [...] evaluated Immunohistochemistry technical testing was performed at [facility], Pathology Laboratory where it was developed and [...] NOT 1092) ACCURATE CRE ATININE CLEARANCE IN OR EDICTING GLOMERULAR FILT RATION RATE. ESTIMATED GFR IS NOT APPLICABLE FOR DIALYSIS PATIENTS. [employer] Operator ID - PIAYA LCBC [...] WBC 0-0 (BEAKER) (test code = 413) [id number] 05:41:00 Test Item Value Reference Range Interpretation Comments CORTISOL, TOTAL (BEAKER) (test code 7.1 ug/dL 3.7-19.4 = 2755) [employer] Operator ID - PIAYA LBASIC METABOLIC [id number] 04:01:00 Test Item Value Reference Range Interpretation [...] S NOT APPLICABLE FOR DIALYSIS PATIEN TS. [employer] Operator ID - EDASIHEMOGLOBIN AND [id number] 03:00:00 Test Item Value Reference Range Interpretation Comments HEMOGLOBIN (BEAKER) (test code = 7.7 GM/DL 11.2-15.7 L 410) HEMATOCRIT (BEAKER) (test code = 25.7 % 34.1-44.9 L 411) [employer] Operator ID - [id number] (HEMOGRAM [...] 0-0 (BEAKER) (test code = 413) SARS-COV2/RT-PCR ([facility])2020-04-17 14:53:00 Test Item Value Reference Range Interpretation Comments SARS-COV2/RT-PCR (test Negative Not Detected, Negative, code = 5189116) See external report for linked test SARS-COV-2 PERFORMING LAB [facility] LIANA (test code = 6213494) Negative result for this test determines that [...] 564(g) of the Act.Fact Sheet for Healthcare Providers:https://www.Power[employer]ine.com/sites/default/files/product/documents/Fact_Shee l_LM_Qhvuedpbx_Oyuz_HIXW-IdN-3.pdfFact Sheet for Healthcare Patients:https://www.[employer].com/sites/default/files/product/ documents/Dsvy_Yqcrp_Yaplbzfs_Ejyz_XSBK-PqH-3.pdfPerforming Laboratory:[facility], [place] [address]MF, BRAIN, WITHOUT [id number] 11:46:00FINAL REPORT CT, BRAIN, WITHOUT CONTRAST INDICATION: [...] Robert MDReport Verified Date/Time: 04/17/2020 11:46:51 ReadingLocation: [facility] B1 C013V Neuro Reading Room TROPONIN [id number] 10:30:00 Test Item Value Reference Range Interpretation [...] failure, acidosis, acute neurological disease, and persistent tachyarrhythmia.[employer]inking [employer] Machine Operator ID - [id number] 10:24:00 Test Item Value Reference Range Interpretation Comments LIPASE (BEAKER) (test code = 749) 30 U/L 8-78 [employer] Operator ID - NTPCOMPREHENSIVE METABOLIC [id number] 10:17:00 Test Item Value Reference Range Interpretation [...] S NOT APPLICABLE FOR DIALYSIS PATIEN TS. [employer] Operator ID - [id number] 09:59:00 Test Item Value Reference Range Interpretation Comments FERRITIN (BEAKER) (test code = 361) < ng/mL 5.00-275.00 L [employer] Operator ID - NTPTSH/FREE T4 IF [id number] 09:50:00 Test Item Value Reference Range Interpretation Comments THYROID STIMULATING HORMONE 4.140 uIU/mL 0.350-4.940 (BEAKER) (test code = 772) [employer] Operator ID - NTPVITAMIN B12 AND [id number] 09:50:00 Test Item Value Reference Range Interpretation Comments VITAMIN B12 (BEAKER) (test code = 332 pg/mL 213-816 774) FOLATE (BEAKER) (test code = 362) 6.20 ng/mL >=7.00 L [employer] Operator ID - NTPCBC W/PLT COUNT & AUTO [id number] 09:28:00 Test Item Value Reference Range Interpretation [...] % 20-55 L (test code = 2590) [employer] Operator ID - NTPPROTHROMBIN TIME/[id number] 09:10:00 Test Item Value Reference Range Interpretation [...] mechanical heart valves.CBC W/PLT COUNT & AUTO [id number] 07:04:00 Test Item Value Reference Range Interpretation [...] (BEAKER) (test code = 2801) BASIC METABOLIC [id number] 06:54:00 Test Item Value Reference Range Interpretation [...] APPLICABLE FOR DIALYSIS PATIEN TS. HEMOGLOBIN AND [id number] 23:13:00 Test Item Value Reference Range Interpretation Comments HEMOGLOBIN (BEAKER) (test code = 7.8 GM/DL 11.2-15.7 L 410) HEMATOCRIT (BEAKER) (test code = 25.1 % 34.1-44.9 L 411) HEMOGLOBIN AND [id number] 18:29:00 Test Item Value Reference Range Interpretation Comments HEMOGLOBIN (BEAKER) (test code = 7.6 GM/DL 11.2-15.7 L 410) HEMATOCRIT (BEAKER) (test code = 24.4 % 34.1-44.9 L 411) HEMOGLOBIN AND [id number] 09:57:00 Test Item Value Reference Range Interpretation Comments HEMOGLOBIN (BEAKER) (test code = 7.2 GM/DL 11.2-15.7 L 410) HEMATOCRIT (BEAKER) (test code = 23.2 % 34.1-44.9 L 411) [id number] 05:50:00 Test Item Value Reference Range Interpretation Comments PHOSPHORUS (BEAKER) (test code = 2.9 mg/dL 2.3-4.7 604) [id number] 05:50:00 Test Item Value Reference Range Interpretation Comments MAGNESIUM (BEAKER) (test code = 2.0 mg/dL 1.6-2.6 627) BASIC METABOLIC [id number] 05:50:00 Test Item Value Reference Range Interpretation [...] APPLICABLE FOR DIALYSIS PATIEN TS. HEPATIC FUNCTION [id number] 05:50:00 Test Item Value Reference Range Interpretation [...] 6-55 347) CBC W/PLT COUNT & AUTO [id number] 05:40:00 Test Item Value Reference Range Interpretation [...] PERCENT (BEAKER) (test code = 2801) PROTHROMBIN [id number] 05:29:00 Test Item Value Reference Range Interpretation [...] wiht mechanical heart valves.RAD, ABDOMEN/KUB, 1 VIEW [id number] 02:43:00Reason for exam:->bloatingShould this be performed at [...] Verified Date/Time: 06/16/2019 02:43:11 RAPID INFLUENZA A&B [id number] 01:49:00 Test Item Value Reference Range Interpretation Comments RAPID INFLUENZA A AG (BEAKER) Negative Negative, Inconclusive (test code = 1622) RAPID INFLUENZA B AG (BEAKER) Negative Negative, Inconclusive (test code = 1623) RAD, CHEST, 1 VIEW, NON [id number] 01:08:00Reason for exam:->coughShould this be performed at [...] Guille Barragan Verified Date/Time: 06/16/2019 01:08:45 BLOOD [id number] 08:00:00 Test Item Value Reference Range Interpretation Comments CULTURE (BEAKER) (test No growth in 5 days code = 1095) BLOOD [id number] 20:01:00 Test Item Value Reference Range Interpretation Comments CULTURE (BEAKER) (test No growth in 5 days code = 1095) TISSUE [id number] 12:58:00Surgical Pathology Report Case: [id number] Authorizing Provider: Len Waggoner, Collected: 06/10/2019 1111 Ordering Location: [place] [address] ICU Received: 06/10/2019 1601 Pathologist: Fernando Plascencia [...] DYSPLASIA/ MALIGNANCY Signing Pathologist Direct Phone Line: [phone] signed by Fernando Plascencia MD on 06/12/2019 at 12:58 PMB. Detached/ loosely adherent refractile foreign material is seen in the biopsy, likely representing pill fragments. Clinical and endoscopic correlation is recommended.[id number] bleedingA. Specimen is received in formalin labeled [...] evaluated Immunohistochemistry technical testing was performed at [facility], Pathology Laboratory where it was developed and [...] certified under the Clinical Laboratory Improvement Amendments qw4606 (CLIA-88) as qualified to perform high complexity clinical laboratory testing.POCT- GLUCOSE [id number] 11:45:00 Test Item Value Reference Range Interpretation Comments POC-GLUCOSE METER 85 mg/dL 70-110 TESTED AT [facility] 67 ([place]) (test code = AUDI [address] [facility] [address] 1538) T4, [id number] 08:58:00 Test Item Value Reference Range Interpretation Comments FREE T4 (BEAKER) (test code = 655) 0.58 ng/dL 0.70-1.48 L POCT-GLUCOSE [id number] 08:02:00 Test Item Value Reference Range Interpretation Comments POC-GLUCOSE METER 91 mg/dL 70-110 TESTED AT [place] [address] ([place]) (test code = AUDI Pollock [facility] [address] 1538) TSH/FREE T4 IF [id number] 06:57:00 Test Item Value Reference Range Interpretation [...] WBC 0-0 (BEAKER) (test code = 413) [id number] 06:42:00 Test Item Value Reference Range Interpretation Comments PHOSPHORUS (BEAKER) (test code = 2.7 mg/dL 2.3-4.7 604) [id number] 06:42:00 Test Item Value Reference Range Interpretation Comments MAGNESIUM (BEAKER) (test code = 2.0 mg/dL 1.6-2.6 627) COMPREHENSIVE METABOLIC [id number] 06:42:00 Test Item Value Reference Range Interpretation [...] NOT APPLICABLE FOR DIALYSIS PATIEN TS. POCT-GLUCOSE [id number] 23:02:00 Test Item Value Reference Range Interpretation Comments POC-GLUCOSE METER 113 mg/dL 70-110 H TESTED AT [place] [address] ([place]) (test code = GUSTAVOCARLY Pollock [facility] 1538) [address] T3, [id number] 18:30:00 Test Item Value Reference Range Interpretation Comments T3 FREE ([place]NER) < pg/mL 1.71-3.71 L Testing per formed at [facility] (test code = 908) DIAGNOSTIC S [address] [address] [id number] 18:30:00 Test Item Value Reference Range Interpretation Comments T3 TOTAL ([place]) 27 ng/dL 48-159 L Testing pe rformed at (test code = 656) [facility] [place] [address] [place] [address] POCT-GLUCOSE [id number] 18:14:00 Test Item Value Reference Range Interpretation Comments POC-GLUCOSE METER 106 mg/dL 70-110 TESTED AT [place] [address] ([place]) (test code = AUDI [address]ock [facility] 1538) [address] HEMOGLOBIN AND [id number] 18:09:00 Test Item Value Reference Range Interpretation Comments HEMOGLOBIN (BANNER) (test code = 8.4 GM/DL 11.2-15.7 L 410) HEMATOCRIT ([place]NER) (test code = 26.4 % 34.1-44.9 L 411) POCT-GLUCOSE [id number] 12:28:00 Test Item Value Reference Range Interpretation Comments POC-GLUCOSE METER 132 mg/dL 70-110 H TESTED AT [place] [address] ([place]) (test code = AUDI Pollock [facility] 1538) [address] CORTISOL,60 [id number] 10:34:00 Test Item Value Reference Range Interpretation Comments CORTISOL BASELINE NETWORKED 8.4 mcg/dL ([place]) (test code = 2307) CORTISOL 30 MINUTE NETWORKED 16.1 mcg/dL ([place]) (test code = 2308) CORTISOL, 60 MINUTE [...] serum cortisollevel 60 minutes after cosyntropin administration. CORTISOL,[id number] 09:20:00 Test Item Value Reference Range Interpretation [...] a study by Stu et al (VIANEY 2000,283(8):9630-16), the ACTH Stimulation Test provides important prognostic [...] = 2.0 mg/dL 1.6-2.6 627) COMPREHENSIVE METABOLIC [id number] 07:16:00 Test Item Value Reference Range Interpretation [...] S NOT APPLICABLE FOR DIALYSIS PATIEN TS. [id number] 07:01:00 Test Item Value Reference Range Interpretation [...] (test code = 2590) VITAMIN B12 AND [id number] 06:14:00 Test Item Value Reference Range Interpretation Comments VITAMIN B12 (BEAKER) (test code = 285 pg/mL 213-816 774) FOLATE (BEAKER) (test code = 362) 6.3 ng/mL >=7.0 L [id number] 06:05:00 Test Item Value Reference Range Interpretation Comments CORTISOL, TOTAL (BEAKER) (test code 3.2 ug/dL 3.7-19.4 L = 2755) HIV-1 ANTIGEN WITH HIV-1/2 [id number] 06:04:00 Test Item Value Reference Range Interpretation Comments HIV-1 ANTIGEN WITH HIV 1\\T\\2 Nonreactive Nonreactive ANTIBODY (2) (BEAKER) (test code = 2586) [id number] 06:03:00 Test Item Value Reference Range Interpretation [...] 0-0 (BEAKER) (test code = 413) RETICULOCYTE [id number] 05:08:00 Test Item Value Reference Range Interpretation Comments RETICULOCYTE COUNT PCT (BEAKER) (test 2.9 % 0.5-1.7 H code = 575) POCT-GLUCOSE [id number] 22:01:00 Test Item Value Reference Range Interpretation Comments POC-GLUCOSE METER 132 mg/dL 70-110 H TESTED AT [facility] 6720 (BEAKER) (test code = AUDI [place]ALERA 1538) [address] HEMOGLOBIN AND [id number] 21:02:00 Test Item Value Reference Range Interpretation Comments HEMOGLOBIN (BEAKER) (test code = 8.1 GM/DL 11.2-15.7 L 410) HEMATOCRIT (BEAKER) (test code = 25.5 % 34.1-44.9 L 411) T4, [id number] 11:38:00 Test Item Value Reference Range Interpretation Comments FREE T4 (BEAKER) (test code = 655) 0.46 ng/dL 0.70-1.48 L TSH/FREE T4 IF [id number] 11:00:00 Test Item Value Reference Range Interpretation Comments THYROID STIMULATING HORMONE 34.88 uIU/mL 0.35-4.94 H (BEAKER) (test code = 772) HEMOGLOBIN AND [id number] 10:21:00 Test Item Value Reference Range Interpretation Comments HEMOGLOBIN (BEAKER) (test code = 8.9 GM/DL 11.2-15.7 L 410) HEMATOCRIT (BEAKER) (test code = 27.3 % 34.1-44.9 L 411) [id number] 05:22:00 Test Item Value Reference Range Interpretation Comments PHOSPHORUS (BEAKER) (test code = 2.9 mg/dL 2.3-4.7 604) [id number] 05:22:00 Test Item Value Reference Range Interpretation Comments MAGNESIUM (BEAKER) (test code = 2.0 mg/dL 1.6-2.6 627) COMPREHENSIVE METABOLIC [id number] 05:22:00 Test Item Value Reference Range Interpretation [...] U/L 29-200 code = 380) LACTIC ACID, [id number] 05:09:00 Test Item Value Reference Range Interpretation [...] 0-0 (BEAKER) (test code = 413) POCT-GLUCOSE [id number] 00:51:00 Test Item Value Reference Range Interpretation Comments POC-GLUCOSE METER 88 mg/dL 70-110 TESTED AT [facility] 67 (BEAKER) (test code = AUDI Pollock [facility] [address] 1538) CHLORIDE, RANDOM [id number] 19:35:00 Test Item Value Reference Range Interpretation Comments CHLORIDE URINE (BEAKER) (test code = 80 meq/L 682) Reference Range: No NormalsCREATININE, RANDOM [id number] 19:35:00 Test Item Value Reference Range Interpretation Comments CREATININE URINE (BEAKER) (test 74.8 mg/dL code = 375) Reference Range: No NormalsSODIUM, RANDOM [id number] 19:35:00 Test Item Value Reference Range Interpretation Comments SODIUM URINE (BEAKER) (test code = 97 meq/L 243) Reference Range: No NormalsURINALYSIS W/ REFLEX URINE [id number] 18:59:00 Test Item Value Reference Range Interpretation [...] 514) SOURCE(BEAKER) (test code = 2795) POCT-GLUCOSE [id number] 18:16:00 Test Item Value Reference Range Interpretation Comments POC-GLUCOSE METER 71 mg/dL 70-110 TESTED AT [facility] 6720 (BEAKER) (test code = AUDI Pollock [facility] [address] 1538) T4, [id number] 18:06:00 Test Item Value Reference Range Interpretation Comments FREE T4 (BEAKER) (test code = 655) < ng/dL 0.70-1.48 L HEPATIC FUNCTION [id number] 17:52:00 Test Item Value Reference Range Interpretation [...] 14 U/L 6-55 347) TSH/FREE T4 IF [id number] 17:49:00 Test Item Value Reference Range Interpretation Comments THYROID STIMULATING HORMONE 125.05 uIU/mL 0.35-4.94 H (BEAKER) (test code = 772) [id number] 16:49:00 Test Item Value Reference Range Interpretation Comments MAGNESIUM (BEAKER) (test code = 1.8 mg/dL 1.6-2.6 627) BASIC METABOLIC [id number] 16:49:00 Test Item Value Reference Range Interpretation [...] S NOT APPLICABLE FOR DIALYSIS PATIEN TS. [id number] 16:41:00 Test Item Value Reference Range Interpretation [...] INR is2.5-3.5 for patients wiht mechanical heart valves.[id number] 16:41:00 Test Item Value Reference Range Interpretation [...] code = 413) RAD, ABDOMEN/KUB, 1 VIEW [id number] 16:14:00Reason for exam:->abdominal distentionShould this be performed [...] MDReport Verified Date/Time: 06/09/2019 16:14:10 Reading Location: [facility] C013T Transitional Reading Room Electronicallysigned by: MOSHE GUTIERREZ M.D. on 06/09/2019 04:14 PM
== END 2022-04-06 10:14 | disposition short-term general hospital (02) ==
LOC: ER 00:33
PROC: 30233N1 Transfusion of Nonautologous Red Blood Cells into Peripheral Vein, Percutaneous Approach (ICD-10-PCS; principal; 2022-04-06)
DX: D64.9 Anemia, unspecified (principal); Z88.5 Allergy status to narcotic agent
CPT/HCPCS: 36415; 80053; 81003; 83605; 83690; 85025; 85610; 85730; 86850; 86900; 86901; 86922; C9113; J7030; J7040; J7050; P9016; U0003

== ENCOUNTER 2022-09-29 19:35 | Emergency (ER) | payer SELFPAY ==
--- OUTSIDE RECORDS SUMMARY | 2022-09-29 19:39 | XMS REPORT | Continuity of Care Document ---
:1955 Author Organization [facility] t Address [address] [place] [address] Care Team Providers Name Role Phone Brandon Mcknight MD Primary Care Physician [phone] KATIANA SANTOS Attending Clinician Unavailable Brandon Mcknight MD Attending Clinician BRANDON MCKNIGHT Attending Clinician Unavailable Haylie Marmolejo LVN Attending Clinician CLAIRE ROJAS Attending Clinician Unavailable Brunilda Araiza DO Attending Clinician Claire Rojas DO Attending Clinician Team, [facility] Attending Clinician UnavailRadha Rausch LMSW Attending Clinician Unavailable CLIFFORD AYOUB Attending Clinician Unavailable MEGAN MEJIA Attending Clinician Unavailable Megan Mejia MD Attending Clinician Therapy, [facility] Covid Infusion Attending Clinician Unavailable Toney Diego MD Attending Clinician TONEY DIEGO Attending Clinician Unavailable EVERTON HEADLEY Attending Clinician Unavailable Everton Headley MD Attending Clinician ABRAHAM VALDOVINOS Attending Clinician Unavailable BERT GRIFFITHS Attending Clinician Unavailable KATIANA SANTOS Admitting Clinician Unavailable CLAIRE ROJAS Admitting Clinician Unavailable Claire Rojas DO Admitting Clinician LUC KIM Admitting Clinician Unavailable EVERTON HEADLEY Admitting Clinician Unavailable JENA DUBOIS Admitting Clinician Unavailable BERT GRIFFITHS Admitting Clinician Unavailable Payers Payer Name Policy Type Policy Number Effective Date Expiration Date Maria Ines [place] MEDICAID PENDING PENDING 2022 00:00:00 Problems Condition Condition Condition Status Onset Resolution Last Treating Co mments Source Name Details Category Date Date Treatment Clinician Date Altered Altered Disease Active [facility] mental mental - ity of status status 00:00: [address] Upper GI [facility] 00 [place] Colitis Colitis Disease [facility] Medical [place] Melena Melena Disease [facility] 00 [place] Duodenal Duodenal Disease [facility] Medical 00 [place] Hypothyroi Hypothyroi Disease Active [facility] dism dism [facility] 00:[facility]: Medical 00 [place] Depression Depression Disease [facility] Medical 00 [place] Noncomplia Noncomplia Disease Active [facility] nce 06[facility]10 [facility] 00:[facility]: Medical 00 [place] Anemia Anemia Disease Active [facility] Center Allergies, Adverse Reactions, Alerts Allergy Allergy Status Severity Reaction(s) Onset Inactive Treating Comm ents Source Name Type Date Date Clinician NO KNOWN Allergy Active [facility] ALLERGIE S NO KNOWN Drug Active Univers ALLERGIE Class ity of S [facility] Social History Social Habit Start Date Stop Date Quantity Comments Source History of tobacco Cigarette Smoker [facility] History SDOH [facility] Alcohol Comment Medical C enter History SDOH [facility] Alcohol Std Drinks Medica l Center History SDOH [facility] Alcohol Binge Medical [address] Exposure to 2022-02-05 2022-02-15 Not sure University SARS-CoV-2 (event) 00:00:00 14:30:00 [facility] Cigarettes smoked 2022-01-11 2022-01-11 Univers ity of current (pack per 00:00:00 00:00:00 [facility] ) - Reported Branch Alcohol intake 2020-04-20 2020-04-[address] [facility] 00:00:00 00:00:00 non-drinker of Medical Ce nter alcohol (finding) Tobacco use and 2019-06-09 2019-06-[address] [facility] exposure 00:00:00 00:00:00 Medical Center History SDOH 2019-06-09 2019-06-[address] [facility] Alcohol Frequency 00:00:00 00:00:00 [facility] Center Sex Assigned At [address] [facility] 00:00:00 00:00:00 [facility] Center Smoking Status Start Date Stop Date Source Smokes tobacco daily 2022-01-11 00:00:00 Univers ity of [facility] Light tobacco smoker 2019-06-09 00:00:00 [facility] Medications Ordered Filled Start Stop Current Ordering Indication Dosage Frequency Signature Comments Components Source Medication Medication Date Date Medication? Clinician (SIG) Name Name busPIRone Yes [id number] 10mg Take 1 Un louie 10 mg 5-31 tablet by ity of tablet 00:00: mouth 2 00 (two) Medical times Branch daily. lisinopriL Yes [id number] 40mg Take 1 U nivers 40 mg 5-31 tablet by ity of tablet 00:00: mouth [place] 00 daily. Medical Branch busPIRone Yes [id number] 10mg Take 1 Un louie 10 mg 5-31 tablet by ity of tablet 00:00: mouth 2 [place] 00 (two) Medical times Branch daily. lisinopriL Yes [id number] 40mg Take 1 U nivers 40 mg 5-31 tablet by ity of tablet 00:00: mouth [place] 00 daily. Medical Branch buPROPion 2020-09 Yes [id number] 150mg Take 1 Univers XL 1-29 tablet by ity of (WELLBUTRIN 00:00: mouth [place] XL) 150 mg 00 daily. Medical 24 hr Branch tablet levothyroxi 2020-09 Yes [id number] 150ug Take 1 Univers ne 150 mcg 1-29 tablet by ity of tablet 00:00: mouth [place] 00 every Medical morning. Branch buPROPion 2020-09 Yes [id number] 150mg Take 1 Univers XL 1-29 tablet by ity of (WELLBUTRIN 00:00: mouth [place] XL) 150 mg 00 daily. Medical 24 hr Branch tablet levothyroxi 2020-09 Yes [id number] 150ug Take 1 Univers ne 150 mcg 1-29 tablet by ity of tablet 00:00: mouth [place] 00 every Medical morning. Branch busPIRone 5 2020-09- No [id number] 5mg Take 1 Univers mg tablet 10-16 tablet by ity of 00:00: 00:00 mouth 2 [place] 00 :00 (two) Medical times Branch daily. lisinopriL 2020-09- No [id number] 20mg Take 1 Univers 20 mg 10-16- tablet by ity of tablet 00:00: 00:00 mouth [place] 00 :00 daily. Medical Branch pantoprazol Yes 40mg Take [address] [facility] [facility] 8-02 tablet (40 [facility] (PROTONIX) 00:00: mg total) Me dical 40 MG 00 by mouth 2 Center tablet (two) times daily before meals. levothyroxi Yes 150ug Take [address] [facility] [facility] ne 9-25 tablet [facility] (SYNTHROID, 00:00: (150 mcg Me dical LEVOTHROID) 00 total) by [address] 150 MCG mouth tablet Every morning on an empty stomach Wait 1 hr before eating food or taking other medication . polyethylen Yes 17g Take [address] e glycol 9-25 by mouth [facility] (GLYCOLAX) 00:00: daily as Med ical 17 gram 00 needed (To Center packet have bowel movement; do not take if have >2 bowel movements in 1 day) Can hold for loose stools. senna Yes 8.6mg QD Take [address] (SENOKOT) 9-25 tablet [facility] 8.6 mg 00:00: (8.6 mg Medical tablet 00 total) by Center mouth nightly Do not take if having loose stools.. Vital Signs Vital Name Observation Time Observation Value Comments Source Systolic blood 2022-02-15 19:41:00 183 mm[Hg] Univer sity [facility] pressure [facility] Diastolic blood 2022-02-15 19:41:00 101 mm[Hg] [facility] [place] rate 2022-02-15 19:40:00 90 /min [facility] Body height 2022-02-15 19:40:00 170.2 cm [facility] Body weight 2022-02-15 19:40:00 59.875 kg [facility] BMI 2022-02-15 19:40:00 20.67 kg/m2 [facility] Procedures This patient has no known procedures. Plan of Care Planned Activity Planned Date Details Comments Source Future Scheduled 2030-04-18 Screening for malignant [facility] Test 00:00:00 neoplasm of colon Medical Ce nter (procedure) [code = 152453538] Future Scheduled 2030-04-18 Screening for malignant [facility] Test 00:00:00 neoplasm of colon Medical Ce nter (procedure) [code = 257629160] Future Scheduled 2022-09-18 FALLS RISK SCREENING [facility] Test 00:00:00 [code = FALLS RISK Medical C enter SCREENING] Future Scheduled 2022-05-19 INFLUENZA VACCINE (#1) [facility] Test 00:00:00 [code = INFLUENZA Medical Ce nter VACCINE (#1)] Future Scheduled 2021-04-[address] [facility] Test 00:00:00 Counseling and Medical Cente r Screening (12+) [code = Tobacco Cessation Counseling and Screening (12+)] Future Scheduled 2005 SHINGLES VACCINES ([address] [facility] Test 00:00:00 2) [code = SHINGLES Medical Center VACCINES (1 of 2)] Future Scheduled 1974 DTAP/TDAP/TD VACCINES [facility] Test 00:00:00 (1 - Tdap) [code = Medical C enter DTAP/TDAP/TD VACCINES (1 - Tdap)] Future Scheduled 1973 HEPATITIS C SCREENING [facility] Test 00:00:00 [code = HEPATITIS C Medical Center SCREENING] Future Scheduled 1961 PNEUMOCOCCAL 65+ YRS ([address] [facility] Test 00:00:00 - PCV) [code = Medical Cente r PNEUMOCOCCAL 65+ YRS (1 - PCV)] Future Scheduled 1956-02-24 COVID-19 VACCINE (#1) [facility] Test 00:00:00 [code = COVID-[address] VACCINE (#1)] Future Scheduled 1955 Screening for malignant [facility] Test 00:00:00 neoplasm of breast Medical C enter (procedure) [code = 663608985] Future Scheduled 1955 CT Colonography (combo) [facility] Test 00:00:00 [code = CT Colonography [facility] (combo)] Future Scheduled 1955 DXA SCAN [code = DXA [facility] Test 00:00:00 SCAN] [facility] Future Scheduled 1955 Screening for malignant [facility] Test 00:00:00 neoplasm of colon Medical Ce nter (procedure) [code = 656938988] Future Scheduled 1955 Screening for malignant [facility] Test 00:00:00 neoplasm of colon Medical Ce nter (procedure) [code = 545090900] Future Scheduled 1955 Sigmoidoscopy [code = [facility] Test 00:00:00 Sigmoidoscopy] Medical Twin r Encounters Start End Encounter Admission Attending Care Care Encounter Source Date/Time Date/Time Type Type Clinicians Facility Department ID 2022-04-06 Inpatient ER [facility] Gastro [id number] [facility] 2021-06-23 Inpatient ER SANTOS, RISHABH Gastro [id number] SLE 01:38:07 KATIANA 2022-05-24 2022-05-24 Telephone [facility] [id number] Univers 00:00:00 00:00:00 Brandon POWELL [id number] it y of Eulogio QUINTERO 4.2.7.2.686 Mark as NATE?BLEA [id number] [address] MEDICAL OFFICE BUILDING 2022-02-15 2022-02-15 [facility] [id number] Univers 14:30:00 16:20:37 BRANDON hernández [facility] 2022-02-15 2022-02-15 Office [facility] [id number] Univers 14:30:00 15:00:[address] [facility] [id number] it y of [place]ulogio QUINTERO 4.2.7.2.686 Mark as NATE?BLEA [id number] Ga sanya PANDEY 044 [facility] OFFICE [facility] 2022-02-15 2022-02-15 Outpatient [facility] [id number] Univers 14:30:00 14:30:00 BRANDON [facility] 2022-02-15 2022-02-15 Outpatient [facility] [id number] Univers 14:30:00 14:30:00 [facility] 2022-02-11 2022-02-11 [facility] [id number] Univers 00:00:00 00:00:00 (Out) [facility] [id number] it y of [place]ulogio INGRID 4.2.7.2.686 Mark as NATE?BLEA [id number] Ga dicshaneka PANDEY 044 [facility] OFFICE [facility] 2022-01-13 2022-01-13 Transition EMMANUEL Marmolejo [id number] Univers 00:00:00 00:00:00 of Care Haylie MAURO 350.1.13.10 ity [place] [id number] [facility] [address] 2022-01-11 2022-01-12 Inpatient X BOB [facility] CITLALY [id number] Univers 02:24:00 14:45:00 CLAIRE hernández [facility] 2022-01-11 2022-01-12 [facility] Brunilda Araiza [facility] 1.2.84 0.114 [id number] Univers 02:24:00 14:45:00 Encounter Claire Rojas 350.1.13.10 ity of [place] [id number] [facility] [address] 2022-01-11 2022-01-12 [facility] [id number] Univers 02:24:00 14:45:00 CLAIRE hernández [facility] 2021-09-08 2021-09-08 Telephone Team, [facility] KULWINDER 1.2.840.114 [id number] Univers 00:00:00 00:00:00 Health CARLOS 350.1.13.10 it y of [facility] 4.2.7.2.686 [place] [id number] [address] 2021-08-16 2021-08-16 Outpatient Maris MCKNIGHT [facility] [id number] Univers 16:15:00 16:34:05 BRANDON [facility] 2021-08-16 2021-08-16 Office [facility] 1.2.840.114 [id number] Univers 16:13:41 16:28:41 Visit Brandon SHERRY 350.1.13.10 it y of [place] QUINTERO 4.2.7.2.686 Mark as NATE?BLEA [id number] Ga [address] MEDICAL OFFICE BUILDING 2021-08-16 2021-08-16 Outpatient Maris MCKNIGHT [facility] [id number] Univers 16:15:00 16:15:00 BRANDON [facility] 2021-08-09 2021-08-09 Outpatient Maris MCKNIGHT [facility] [id number] Univers 16:00:00 16:00:00 BRANDON [facility] 2021-06-11 2021-06-11 Gustavo Sandeep Strangejabari 1.2.840.114 [id number] Univers 00:00:00 00:00:00 Management Radha Mauro 350.1.13.10 ity [facility] 4[place]2.7.2.[place] [id number] [address] 2021-05-07 2021-05-07 Outpatient Maris MCKNIGHT [facility] [id number] Univers 14:00:00 14:00:00 BRANDON [facility] 2021-04-30 2021-04-30 Outpatient Maris AYOUB [facility] [id number] Univers 14:30:00 14:30:00 WONDIFUL ity o f [facility] 2021-04-12 2021-04-12 Outpatient R ANITRA [facility] [id number] Univers 09:00:00 09:00:00 WONDIFUL ity o f [facility] 2021-04-05 2021-04-05 Outpatient R ROBERTO [facility] [id number] Univers 17:00:00 17:00:00 MEGAN itsari [facility] 2021-04-05 2021-04-05 Urgent Roberto [facility] 1.2.840.114 [id number] Univers 12:28:59 12:48:59 Care [facility] 350.1.13.10 it y of [place] 4.2.7.2.686 Mark as Professio [id number] Ga dical [facility] [address] 2021-01-14 2021-01-14 Nurse Therapy, Adc Covid Infusion [facility] 1.2.840.114 [id number] Univers 15:04:48 15:34:48 Visit Toney Diego 350.1.13.10 ity [facility] 4.2.7.2.686 [facility] [id number] [facility] [address] 2021-01-14 2021-01-14 Outpatient R AYDE [facility] [id number] Univers 15:00:00 15:00:00 TONEY hernández [facility] 2021-01-12 2021-01-12 Emergency [facility] 1.2.840.114 [id number] Univers 18:42:00 20:16:00 Brunilda Quintero 350.1.13.10 ity [place] [id number] [facility] [address] 2021-01-12 2021-01-12 Emergency X [facility] ERT [id number] Univers 18:42:00 18:42:00 edgar [facility] 2019-11-13 2019-11-13 Emergency X [facility] E[facility] [id number] Univers 12:50:48 15:36:00 EVERTON hernández [facility] 2019-11-13 2019-11-13 Emergency [facility] [id number] Univers 12:50:48 15:36:00 Everton Quintero 350.1.13.10 i ty william Nolen 4.2.7.2.686 [facility] [id number] [facility] 0[address] Branch 2019-11-13 2019-11-13 Emergency X KAYODE [facility] ERT [id number] Univers 12:50:48 12:50:48 EVERTON hernández [facility] Results Test Description Test Time Test Comments Results Result Sourc e Comments TISSUE EXAM 2020-04-21 Surgical Pathology Report 16:49:00 Case: [id number] Authorizing Provider: Felix Banks MD Collected: 04/18/2020 02:34 PM Ordering Location: [address] Received: 04/20/2020 08:22 AM Service Pathologist: [...] see comment Signing Pathologist Direct Phone Line: [phone] y signed by Keyona Collado MD on 04/21/2020 at 4:49 PMSpecimen C. The features are nonspecific and may represent reflux associated changes in the appropriate clinical and endoscopic setting.21863 x3, [id number] deficiency anemia.A. DuodenumB. Gastric biopsyC. Esophagus biopsy [...] evaluated Immunohistochemistry technical testing was performed at [facility], Pathology Laboratory where it was developed and [...] NOT 1092) ACCURATE CRE ATININE CLEARANCE IN CT EDICTING GLOMERULAR FILT RATION RATE. ESTIMATED GFR IS NOT APPLICABLE FOR DIALYSIS PATIENTS. [employer] CHYNA OGDEN LCBC (HEMOGRAM ONLY)2020-04-19 05:45:00 Test Item Value [...] WBC 0-0 (BEAKER) (test code = 413) [id number] 05:41:00 Test Item Value Reference Range Interpretation Comments CORTISOL, TOTAL (BEAKER) (test code 7.1 ug/dL 3.7-19.4 = 6225) [employer] CHYNA OGDEN LBASIC METABOLIC [id number] 04:01:00 Test Item Value Reference Range Interpretation [...] S NOT APPLICABLE FOR DIALYSIS PATIEN TS. [employer] ID - EDASIHEMOGLOBIN AND [id number] 03:00:00 Test Item Value Reference Range Interpretation Comments HEMOGLOBIN (BEAKER) (test code = 7.7 GM/DL 11.2-15.7 L 410) HEMATOCRIT (BEAKER) (test code = 25.7 % 34.1-44.9 L 411) [employer] ID - [id number] (HEMOGRAM ONLY)2020-04-18 03:00:00 Test [...] 0-0 (BEAKER) (test code = 413) SARS-COV2/RT-PCR ([facility])2020-04-17 14:53:00 Test Item Value Reference Range Interpretation Comments SARS-COV2/RT-PCR (test Negative Not Detected, Negative, code = 5228236) See external report for linked test SARS-COV-2 PERFORMING LAB [facility] LIANA (test code = 0319273) Negative result for this test determines that SARS-CoV-2 RNA was not present in the specimen above the Limit of Detection (LOD). However, Negative results do not preclude SARS-CoV-2 infection and should not be used as the sole basis for treatment or patient management decisions. Negative results must be combined with clinical observations, patient history, and [...] justifying the authorization of the emergency use ofin vitro diagnostic tests for detection and/or diagnosis of COVID-19 is terminated under Section 564(b)(2) of the Act or the EUA is revoked under Section 564(g) of the Act.Fact Sheet for Healthcare Prov iders:https://www.Contextbroker.CicerOOs/sites/default/files/product/documents/Fact_Sheet_HC _Gspgbjlyu_Xizb_QIIL-LhT-7.pdfFact Sheet for Healthcare Patients:https://www.Contextbroker.CicerOOs/sites/default/files/product/docume nts/Jwzs_Xxvil_Sfsavpqm_Gdmn_WJWS-QcT-7.pdfPerforming Laboratory:[facility], [place] [address]NX, BRAIN, WITHOUT [id number] 11:46:00FINAL REPORT CT, BRAIN, WITHOUT CONTRAST INDICATION: slurred speech x weeks, weakness, eval for CVA TECHNIQUE: Noncontrast axial imaging was obtained from the vertex to the skull base. Axial images were reconstructed using a bone algorithm. DOSE REDUCTION: Dose modulation, iterative reconstruction, and/or weight-based adjustment of the mA/kV was utilized to reduce the radiation dose to as low as reasonably achievable. COMPARISON: None. FINDINGS: Cerebral parenchyma: No discernible byrne-white disruption. No parenchymal hemorrhage. Moderate volume loss. The white matter changes are seen bilaterally with greatest concentration in the right parietal lobe.Midline structures: Normally positioned.Cerebellum and brainstem: Commensurate volume loss.Ventricles: Normal volume.Extra-axial spaces: Unremarkable. Calvarium and skull base: Intact.Paranasal sinuses and mastoid air cells: Visible chambers are clear.Orbital contents: Included portions unremarkable. Additional findings: None. IMPRESSION: Chronic involutional changes without acute intracranial abnormality. If there is persistent clinical concern for intracranial pathology, MR examination is recommended for further characterization. Signed: JR Gan Robert MDReport Verified Date/Time: 04/17/2020 11:46:51 Reading Location: [address] Neuro Reading Room TROPONIN [id number] 10:30:00 Test Item Value Reference Range Interpretation [...] failure, acidosis, acute neurological disease, and persistent tachyarrhythmia.[employer] ID - [id number] 10:24:00 Test Item Value Reference Range Interpretation Comments LIPASE (BEAKER) (test code = 749) 30 U/L 8-78 [employer] ID - NTPCOMPREHENSIVE METABOLIC [id number] 10:17:00 Test Item Value Reference Range Interpretation [...] S NOT APPLICABLE FOR DIALYSIS PATIEN TS. [employer] ID - [id number] 09:59:00 Test Item Value Reference Range Interpretation Comments FERRITIN (BEAKER) (test code = 361) < ng/mL 5.00-275.00 L [employer] ID - NTPTSH/FREE T4 IF [id number] 09:50:00 Test Item Value Reference Range Interpretation Comments THYROID STIMULATING HORMONE 4.140 uIU/mL 0.350-4.940 (BEAKER) (test code = 772) [employer] ID - NTPVITAMIN B12 AND [id number] 09:50:00 Test Item Value Reference Range Interpretation Comments VITAMIN B12 (BEAKER) (test code = 332 pg/mL 213-816 774) FOLATE (BEAKER) (test code = 362) 6.20 ng/mL >=7.00 L [employer] ID - NTPCBC W/PLT COUNT & AUTO [id number] 09:28:00 Test Item Value Reference Range Interpretation [...] % 20-55 L (test code = 2590) [employer] ID - NTPPROTHROMBIN [id number] 09:10:00 Test Item Value Reference Range Interpretation Comments PROTIME (BEAKER) (test code = 14.3 seconds 11.9-14.2 H 759) INR (BEAKER) (test code = 370) 1.1 <=5.9 Effective 02/13/2019: PT Reference Range ChangeNew: 11.9-14.2 Previous: 11.7- 14.7RECOMMENDED COUMADIN/WARFARIN INR THERAPY RANGESSTANDARD DOSE: 2.0-3.0 Includes: PROPHYLAXIS for venous thrombosis, systemic embolization; TREATMENT for venous thrombosis and/or pulmonary embolus.HIGH RISK: Target INR is 2.5-3.5 for patients wiht mechanical heart valves.CBC W/PLT COUNT & AUTO [id number] 07:04:00 Test Item Value Reference Range Interpretation [...] (BEAKER) (test code = 2801) BASIC METABOLIC [id number] 06:54:00 Test Item Value Reference Range Interpretation [...] APPLICABLE FOR DIALYSIS PATIEN TS. HEMOGLOBIN AND [id number] 23:13:00 Test Item Value Reference Range Interpretation Comments HEMOGLOBIN (BEAKER) (test code = 7.8 GM/DL 11.2-15.7 L 410) HEMATOCRIT (BEAKER) (test code = 25.1 % 34.1-44.9 L 411) HEMOGLOBIN AND [id number] 18:29:00 Test Item Value Reference Range Interpretation Comments HEMOGLOBIN (BEAKER) (test code = 7.6 GM/DL 11.2-15.7 L 410) HEMATOCRIT (BEAKER) (test code = 24.4 % 34.1-44.9 L 411) HEMOGLOBIN AND [id number] 09:57:00 Test Item Value Reference Range Interpretation Comments HEMOGLOBIN (BEAKER) (test code = 7.2 GM/DL 11.2-15.7 L 410) HEMATOCRIT (BEAKER) (test code = 23.2 % 34.1-44.9 L 411) [id number] 05:50:00 Test Item Value Reference Range Interpretation Comments PHOSPHORUS (BEAKER) (test code = 2.9 mg/dL 2.3-4.7 604) [id number] 05:50:00 Test Item Value Reference Range Interpretation Comments MAGNESIUM (BEAKER) (test code = 2.0 mg/dL 1.6-2.6 627) BASIC METABOLIC [id number] 05:50:00 Test Item Value Reference Range Interpretation [...] APPLICABLE FOR DIALYSIS PATIEN TS. HEPATIC FUNCTION [id number] 05:50:00 Test Item Value Reference Range Interpretation [...] 6-55 347) CBC W/PLT COUNT & AUTO [id number] 05:40:00 Test Item Value Reference Range Interpretation [...] PERCENT (BEAKER) (test code = 2801) PROTHROMBIN [id number] 05:29:00 Test Item Value Reference Range Interpretation Comments PROTIME (BEAKER) (test code = 13.9 seconds 11.9-14.2 759) INR (BEAKER) (test code = 370) 1.1 <=5.9 Effective 02/13/2019: PT Reference Range ChangeNew: 11.9-14.2 Previous: 11.7- 14.7RECOMMENDED COUMADIN/WARFARIN INR THERAPY RANGESSTANDARD DOSE: 2.0-3.0 Includes: PROPHYLAXIS for venous thrombosis, systemic embolization; TREATMENT for venous thrombosis and/or pulmonary embolus.HIGH RISK: Target INR is 2.5-3.5 for patients wiht mechanical heart valves.RAD, ABDOMEN/KUB, 1 VIEW [id number] 02:43:00Reason for exam:->bloatingShould this be performed at [...] upper quadrant. Phleboliths overlie the pelvis. Signed: Reena Barragan Verified Date/Time: 06/16/2019 02:43:11 RAPID INFLUENZA A&B [id number] 01:49:00 Test Item Value Reference Range Interpretation Comments RAPID INFLUENZA A AG (BEAKER) Negative Negative, Inconclusive (test code = 1622) RAPID INFLUENZA B AG (BEAKER) Negative Negative, Inconclusive (test code = 1623) RAD, CHEST, 1 VIEW, NON [id number] 01:08:00Reason for exam:->coughShould this be performed at the bedside?->YesFINAL REPORT Chest, 1 view. History: Cough Comparison: None available. Findings: The cardiomediastinal silhouette and pulmonary vasculature are within normal limits for a portable exam. The lungs are clear without evidence of consolidation or effusion. The soft tissues and osseousstructures are intact. IMPRESSION: No acute cardiopulmonary abnormality. Signed: Mendel Barragan Verified Date/Time: 06/16/2019 01:08:45 BLOOD [id number] 08:00:00 Test Item Value Reference Range Interpretation Comments CULTURE (BEAKER) (test No growth in 5 days code = 1095) BLOOD [id number] 20:01:00 Test Item Value Reference Range Interpretation Comments CULTURE (BEAKER) (test No growth in 5 days code = 1095) TISSUE [id number] 12:58:00Surgical Pathology Report Case: [id number] Authorizing Provider: Len Waggoner, Collected: 06/10/2019 1111 Ordering Location: [place] [address] ICU Received: 06/10/2019 1601 Pathologist: Fernando Plascencia MD Specimens: A) - Biopsy, Gastric, Bx. Random B) - Biopsy, Gastroesophageal Junction, Bx A. STOMACH, RANDOM BIOPSIES: - ANTRAL MUCOSA WITH REACTIVE GASTROPATHY AND MILD CHRONIC INACTIVE GASTRITIS - OXYNTIC MUCOSA WITH NO SIGNIFICANT DIAGNOSTIC ABNORMALITY - NEGATIVE FOR HELICOBACTER PYLORI ORGANISMS BY WARTHIN STARRY STAIN - NEGATIVE FOR INTESTINAL METAPLASIA, DYSPLASIA, MALIGNANCYB. GASTROESOPHAGEAL JUNCTION, BIOPSY: - JUNCTIONAL MUCOSA WITH NO SIGNIFICANT DIAGNOSTIC ABNORMALITY- NEGATIVE FOR INTESTINAL METAPLASIA OR ABRAHAM'S ESOPHAGUS - NEGATIVE FOR DYSPLASIA/ MALIGNANCY Signing Pathologist Direct Phone Line: [phone] signed by Fernando Plascencia MD on 06/12/2019 at 12:58 PMB. Detached/ loosely adherent refractile foreign material is seen in the biopsy,likely representing pill fragments. Clinical and endoscopic correlation is recommended.[id number] bleedingA. Specimen is received in formalin labeled [...] of immunohistochemistry or special stains.Control Slides Examined: In- house known positive controls were evaluated along with the test tissue. These control slides run alongside of the patients sample show appropriate staining. Internal positive and negative controls when available are evaluated Immunoh istochemistry technical testing was performed at [facility], Pathology Laboratory where it was developed and [...] to perform high complexity clinical laboratory testing.POCT-GLUCOSE [id number] 11:45:00 Test Item Value Reference Range Interpretation Comments POC-GLUCOSE METER 85 mg/dL 70-110 TESTED AT [place] [address] ([facility]) (test code = [facility] [address] 1538) T4, [id number] 08:58:00 Test Item Value Reference Range Interpretation Comments FREE T4 ([facility]) (test code = 655) 0.58 ng/dL 0.70-1.48 L POCT-GLUCOSE [id number] 08:02:00 Test Item Value Reference Range Interpretation Comments POC-GLUCOSE METER 91 mg/dL 70-110 TESTED AT [place] [address] ([facility]) (test code = [facility] [address] 1538) TSH/FREE T4 IF [id number] 06:57:00 Test Item Value Reference Range Interpretation Comments THYROID STIMULATING HORMONE ([facility]) > uIU/mL 0.35-4.94 H (test code = 772) CBC (HEMOGRAM ONLY)2019-06-12 06:49:00 Test Item Value Reference Range Interpretation Comments WHITE BLOOD CELL COUNT ([facility]) 8.2 K/ L 3.5-10.5 (test code = 775) RED BLOOD CELL COUNT ([facility]) 2.95 M/ L 3.93-5.22 L (test code = 761) HEMOGLOBIN (AKER) (test code = 8.1 GM/DL 11.2-15.7 L 410) HEMATOCRIT ([facility]) (test code = 26.2 % 34.1-44.9 L [...] WBC 0-0 (BEAKER) (test code = 413) [id number] 06:42:00 Test Item Value Reference Range Interpretation Comments PHOSPHORUS (BEAKER) (test code = 2.7 mg/dL 2.3-4.7 604) [id number] 06:42:00 Test Item Value Reference Range Interpretation Comments MAGNESIUM (BEAKER) (test code = 2.0 mg/dL 1.6-2.6 627) COMPREHENSIVE METABOLIC [id number] 06:42:00 Test Item Value Reference Range Interpretation [...] = 358) GLUCOSE RANDOM 75 mg/dL 70-105 ([facility]) (test code = 652) CALCIUM (BEAKER) 8.3 mg/dL 8.4-10.2 L (test code = 697) AST (SGOT) (BEAKER) 14 U/L 5-34 (test code = 353) ALT (SGPT) (AKER) 8 U/L 6-55 (test code = 347) EGFR ([facility]) (test 51 mL/min/1.73 ESTIMA BHAVANA GFR IS code = 1092) sq m NOT ACCURATE CREATININE CLEARANCE IN PREDICTING GLOMERULAR FILTRATION RATE . ESTIMATED GFR I S NOT APPLICABLE FOR DIALYSIS PATIEN TS. POCT-GLUCOSE [id number] 23:02:00 Test Item Value Reference Range Interpretation Comments POC-GLUCOSE METER 113 mg/dL 70-110 H TESTED AT [place] [address] ([facility]) (test code = AUDI [place]ock [facility] 1538) [address] T3, [id number] 18:30:00 Test Item Value Reference Range Interpretation Comments T3 FREE ([facility]) < pg/mL 1.71-3.71 L Testing per formed at [employer] (test code = 908) DIAGNOSTIC S [address] [address] [id number] 18:30:00 Test Item Value Reference Range Interpretation Comments T3 TOTAL ([facility]) 27 ng/dL 48-159 L Testing pe rformed at (test code = 656) [facility] [place] [address] [place] [address] POCT-GLUCOSE [id number] 18:14:00 Test Item Value Reference Range Interpretation Comments POC-GLUCOSE METER 106 mg/dL 70-110 TESTED AT [place] [address] ([facility]) (test code = AUD[facility] [place] 1538) [address] HEMOGLOBIN AND [id number] 18:09:00 Test Item Value Reference Range Interpretation Comments HEMOGLOBIN ([facility]) (test code = 8.4 GM/DL 11.2-15.7 L 410) HEMATOCRIT ([facility]) (test code = 26.4 % 34.1-44.9 L 411) POCT-GLUCOSE [id number] 12:28:00 Test Item Value Reference Range Interpretation Comments POC-GLUCOSE METER 132 mg/dL 70-110 H TESTED AT [facility] [address] ([facility]) (test code = [place] 1538) [address] CORTISOL,60 [id number] 10:34:00 Test Item Value Reference Range Interpretation Comments CORTISOL BASELINE NETWORKED 8.4 mcg/dL (BEAKER) (test code = 2307) CORTISOL 30 MINUTE NETWORKED 16.1 mcg/dL ([facility]) (test code = 2308) CORTISOL, 60 MINUTE (BEAKER) 18.2 ug/dL (test code = 1805) ACTH STIMULATION TEST INTERPRETATION GUIDELINES(Synonyms: Cortrosyn Test, Cosyntropin or Corticotropin Stimulation Test)Adenocorticotropic hormone (ACTH)is a tropic hormone, made in the pituitary gland, which travels trhough the bloodstream and stimulates the cortex of the adrenal glands to release co rtisol. Cortisol is a primary hormone, which aids the body's metabolism of fats, carbohydrates, and protein as well as sodium and potassium regulation.ACTH Stimulation Test: Exogenous administration ofbiologically active ACTH stimulates the secretion of cortisol from the adrenal gland. This test is used to evaluate adrenal function by measuring cortisol levels at baseline and at 30 and 60 minutes after the administration of 250 micrograms of cosyntropin (Cortrosyn). Patients who have received exogenous corticosteroids immediately prior to performing the ACTH Stimulation Test will often have elevated baseline cortisol levels, which may lead to erroneous interpretation of test results. The notable exception is with dexamethasone.Normal Response: An increase in cortisol after stimulation by ACTH isnormal. Post-stimulation cortisol concentration should be greater than 20 mcg/dL or the rate of risefrom baseline cortisol should be greater than or equal to 9 mcg/dL.Patients with sepsis or septic shock: According to a study by Stu et al (VIANEY 2000,283(8):8582-45), the ACTH Stimulation Test provides important prognostic information. This study defined 3 groups of patients with sepsis or septic shock: 1. Good Survival: Low basal cortisol (<or=34 mcg/dL) and high ACTH response (>9mcg/dL) 2.Intermediate Survival: Low basal cortisol (<34 mcg/dL) and low response to ACTH (<or=9 mcg/dL)OR High basal cortisol (>34 mcg/dL) or high ACTH response (>9 mcg/dL) 3. Poor Survival: High basal cortisol (>34 mcg/dL) and [...] Source.Do not run this test if systemic hydroco rtisone, methylprednisolone, prednisolone or prednisone has been administered within the past 24 hours. Draw baseline cortisol level just prior to cosyntropin administration. Administer cosyntropin 0.25 mg diluted in 2-5 mL of normal saline slow IV Push over a period of 2 minutes. Draw serum cortisol level 30 minutes after cosyntropin administration. Draw serum cortisol level 60 minutes after cosyntropin administration.CORTISOL,30 [id number] 09:35:00 Test Item Value Reference Range Interpretation [...] cortex of the adrenal glands to release co rtisol. Cortisol is a primary hormone, which aids the body's metabolism of fats, carbohydrates, and protein as well as sodium and potassium regulation.ACTH Stimulation Test: Exogenous administration ofbiologically active ACTH stimulates the secretion of cortisol from the adrenal gland. This test is used to evaluate adrenal function by measuring cortisol levels at baseline and at 30 and 60 minutes after the administration of 250 micrograms of cosyntropin (Cortrosyn). Patients who have received exogenous corticosteroids immediately prior to performing the ACTH Stimulation Test will often have elevated baseline cortisol levels, which may lead to erroneous interpretation of test results. The notable exception is with dexamethasone.Normal Response: An increase in cortisol after stimulation by ACTH isnormal. Post-stimulation cortisol concentration should be greater than 20 mcg/dL or the rate of risefrom baseline cortisol should be greater than or equal to 9 mcg/dL.Patients with sepsis or septic shock: According to a study by Stu et al (VIANEY 2000,283(8):1038-45), the ACTH Stimulation Test provides important prognostic information. This study defined 3 groups of patients with sepsis or septic shock: 1. Good Survival: Low basal cortisol (<or=34 mcg/dL) and high ACTH response (>9mcg/dL) 2.Intermediate Survival: Low basal cortisol (<34 mcg/dL) and low response to ACTH (<or=9 mcg/dL)OR High basal cortisol (>34 mcg/dL) or high ACTH response (>9 mcg/dL) 3. Poor Survival: High basal cortisol (>34 mcg/dL) and [...] Source.Do not run this test if systemic hydroco rtisone, methylprednisolone, prednisolone or prednisone has been administered within the past 24 hours. Draw baseline cortisol level just prior to cosyntropin administration. Administer cosyntropin 0.25 mg diluted in 2-5 mL of normal saline slow IV Push over a period of 2 minutes. Draw serum cortisol level 30 minutes after cosyntropin administration. Draw serum cortisol level 60 minutes after cosyntropin administration.CORTISOL,[id number] 09:20:00 Test Item Value Reference Range Interpretation Comments CORTISOL, BASELINE (BEAKER) (test 8.4 ug/dL code = 1803) ACTH STIMULATION TEST INTERPRETATION GUIDELINES(Synonyms: Cortrosyn Test, Cosyntropin or Corticotropin Stimulation Test)Adenocorticotropic hormone (ACTH)is a tropic hormone, made in the pituitary gland, which travels trhough the bloodstream and stimulates the cortex of the adrenal glands to release co rtisol. Cortisol is a primary hormone, which aids the body's metabolism of fats, carbohydrates, and protein as well as sodium and potassium regulation.ACTH Stimulation Test: Exogenous administration ofbiologically active ACTH stimulates the secretion of cortisol from the adrenal gland. This test is used to evaluate adrenal function by measuring cortisol levels at baseline and at 30 and 60 minutes after the administration of 250 micrograms of cosyntropin (Cortrosyn). Patients who have received exogenous corticosteroids immediately prior to performing the ACTH Stimulation Test will often have elevated baseline cortisol levels, which may lead to erroneous interpretation of test results. The notable exception is with dexamethasone.Normal Response: An increase in cortisol after stimulation by ACTH isnormal. Post-stimulation cortisol concentration should be greater than 20 mcg/dL or the rate of risefrom baseline cortisol should be greater than or equal to 9 mcg/dL.Patients with sepsis or septic shock: According to a study by Stu et al (VIANEY 2000,283(8):1038-45), the ACTH Stimulation Test provides important prognostic information. This study defined 3 groups of patients with sepsis or septic shock: 1. Good Survival: Low basal cortisol (<or=34 mcg/dL) and high ACTH response (>9mcg/dL) 2.Intermediate Survival: Low basal cortisol (<34 mcg/dL) and low response to ACTH (<or=9 mcg/dL)OR High basal cortisol (>34 mcg/dL) or high ACTH response (>9 mcg/dL) 3. Poor Survival: High basal cortisol (>34 mcg/dL) and [...] Source.Do not run this test if systemic hydroco rtisone, methylprednisolone, prednisolone or prednisone has been administered within the past 24 hours. Draw baseline cortisol level just prior to cosyntropin administration. Administer cosyntropin 0.25 mg diluted in 2-5 mL of normal saline slow IV Push over a period of 2 minutes. Draw serum cortisol level 30 minutes after cosyntropin administration. Draw serum cortisol level 60 minutes after cosyntropin administration.[id number] 07:16:00 Test Item Value Reference Range Interpretation Comments MAGNESIUM (BEAKER) (test code = 2.0 mg/dL 1.6-2.6 627) COMPREHENSIVE METABOLIC [id number] 07:16:00 Test Item Value Reference Range Interpretation [...] S NOT APPLICABLE FOR DIALYSIS PATIEN TS. [id number] 07:01:00 Test Item Value Reference Range Interpretation [...] (test code = 2590) VITAMIN B12 AND [id number] 06:14:00 Test Item Value Reference Range Interpretation Comments VITAMIN B12 (BEAKER) (test code = 285 pg/mL 213-816 774) FOLATE (BEAKER) (test code = 362) 6.3 ng/mL >=7.0 L [id number] 06:05:00 Test Item Value Reference Range Interpretation Comments CORTISOL, TOTAL (BEAKER) (test code 3.2 ug/dL 3.7-19.4 L = 2755) HIV-1 ANTIGEN WITH HIV-1/2 [id number] 06:04:00 Test Item Value Reference Range Interpretation Comments HIV-1 ANTIGEN WITH HIV 1\\T\\2 Nonreactive Nonreactive ANTIBODY (2) (BEAKER) (test code = 2586) [id number] 06:03:00 Test Item Value Reference Range Interpretation [...] 0-0 (BEAKER) (test code = 413) RETICULOCYTE [id number] 05:08:00 Test Item Value Reference Range Interpretation Comments RETICULOCYTE COUNT PCT (BEAKER) (test 2.9 % 0.5-1.7 H code = 575) POCT-GLUCOSE [id number] 22:01:00 Test Item Value Reference Range Interpretation Comments POC-GLUCOSE METER 132 mg/dL 70-110 H TESTED AT [facility] [address] ([facility]) (test code = [place] 1538) [address] HEMOGLOBIN AND [id number] 21:02:00 Test Item Value Reference Range Interpretation Comments HEMOGLOBIN (BEAKER) (test code = 8.1 GM/DL 11.2-15.7 L 410) HEMATOCRIT (BEAKER) (test code = 25.5 % 34.1-44.9 L 411) T4, [id number] 11:38:00 Test Item Value Reference Range Interpretation Comments FREE T4 (BEAKER) (test code = 655) 0.46 ng/dL 0.70-1.48 L TSH/FREE T4 IF [id number] 11:00:00 Test Item Value Reference Range Interpretation Comments THYROID STIMULATING HORMONE 34.88 uIU/mL 0.35-4.94 H (BEAKER) (test code = 772) HEMOGLOBIN AND [id number] 10:21:00 Test Item Value Reference Range Interpretation Comments HEMOGLOBIN (BEAKER) (test code = 8.9 GM/DL 11.2-15.7 L 410) HEMATOCRIT (BEAKER) (test code = 27.3 % 34.1-44.9 L 411) [id number] 05:22:00 Test Item Value Reference Range Interpretation Comments PHOSPHORUS (BEAKER) (test code = 2.9 mg/dL 2.3-4.7 604) [id number] 05:22:00 Test Item Value Reference Range Interpretation Comments MAGNESIUM (BEAKER) (test code = 2.0 mg/dL 1.6-2.6 627) COMPREHENSIVE METABOLIC [id number] 05:22:00 Test Item Value Reference Range Interpretation [...] U/L 29-200 code = 380) LACTIC ACID, [id number] 05:09:00 Test Item Value Reference Range Interpretation Comments LACTATE BLOOD VENOUS (2) (BEAKER) 0.9 mmol/L 0.5-2.2 (test code = 7732) CBC (HEMOGRAM ONLY)2019-06-10 04:59:00 Test Item Value [...] 0-0 (BEAKER) (test code = 413) POCT-GLUCOSE [id number] 00:51:00 Test Item Value Reference Range Interpretation Comments POC-GLUCOSE METER 88 mg/dL 70-110 TESTED AT [facility] [address] (BEAKER) (test code = [place] [address] 1538) CHLORIDE, RANDOM [id number] 19:35:00 Test Item Value Reference Range Interpretation Comments CHLORIDE URINE (BEAKER) (test code = 80 meq/L 682) Reference Range: No NormalsCREATININE, RANDOM [id number] 19:35:00 Test Item Value Reference Range Interpretation Comments CREATININE URINE (BEAKER) (test 74.8 mg/dL code = 375) Reference Range: No NormalsSODIUM, RANDOM [id number] 19:35:00 Test Item Value Reference Range Interpretation Comments SODIUM URINE (BEAKER) (test code = 97 meq/L 243) Reference Range: No NormalsURINALYSIS W/ REFLEX URINE [id number] 18:59:00 Test Item Value Reference Range Interpretation [...] 514) SOURCE(BEAKER) (test code = 2795) POCT-GLUCOSE [id number] 18:16:00 Test Item Value Reference Range Interpretation Comments POC-GLUCOSE METER 71 mg/dL 70-110 TESTED AT [facility] [address] (BEAKER) (test code = [facility] [address] 1538) T4, [id number] 18:06:00 Test Item Value Reference Range Interpretation Comments FREE T4 (BEAKER) (test code = 655) < ng/dL 0.70-1.48 L HEPATIC FUNCTION [id number] 17:52:00 Test Item Value Reference Range Interpretation [...] 14 U/L 6-55 347) TSH/FREE T4 IF [id number] 17:49:00 Test Item Value Reference Range Interpretation Comments THYROID STIMULATING HORMONE 125.05 uIU/mL 0.35-4.94 H (BEAKER) (test code = 772) [id number] 16:49:00 Test Item Value Reference Range Interpretation Comments MAGNESIUM (BEAKER) (test code = 1.8 mg/dL 1.6-2.6 627) BASIC METABOLIC [id number] 16:49:00 Test Item Value Reference Range Interpretation [...] S NOT APPLICABLE FOR DIALYSIS PATIEN TS. [id number] 16:41:00 Test Item Value Reference Range Interpretation [...] thrombosis and/or pulmonary embolus.HIGH RISK: Target INR is 2.5-3.5 for patients wiht mechanical heart valves.[id number] 16:41:00 Test Item Value Reference Range Interpretation [...] code = 413) RAD, ABDOMEN/KUB, 1 VIEW [id number] 16:14:00Reason for exam:->abdominal distentionShould this be performed at the bedside?->YesFINAL REPORT Technique: Frontal image of the abdomen COMPARISON: None FINDINGS: Exam is limited as portions of the left lateral abdomen as well as pelvis are outside of the field of view. Evaluation for free intraperitoneal air is limited due to positioning and technique. Bowel gas pattern is nonspecific. Rounded calcifications project in the right abdomen which could be gallstones, renal stones, etc. No acute skeletal abnormality. Signed: Moshe Gutierrez MDReport Verified Date/Time: 06/09/2019 16:14:10 Reading Location: [address] Transitional Reading Room
[2022-09-29] MEDS ORDERED: predniSONE 20 MG TAB ONE (20:37)
[2022-09-29] MEDS ORDERED: IPRATROPIUM BROM 0.5MG/2.5ML ONE (20:37)
[2022-09-29] MEDS ORDERED: ALBUTEROL 2.5 MG/3 ML NEB SOL ONE (20:37)
--- NOTE | 2022-09-29 21:06 | RAD REPORT ---
EXAM DESCRIPTION: RAD - Chest Single View - 09/29/2022 8:58 pm CLINICAL HISTORY: Congestion COMPARISON: <Comparisons> FINDINGS: Lines: None. Lungs: No evidence of edema or pneumonia. Pleural: No significant pleural effusions or pneumothorax. Cardiac: The heart size is within normal limits. Mediastinum: Within normal limits. Bones: No acute fractures. Other: None IMPRESSION: No acute cardiopulmonary disease.
[2022-09-29 21:50] LABS: Absolute Lymphocytes (CBC) 2.5 K/uL (0.7-4.9); Hematocrit 36.6 % (36.0-45.0); Lymphocytes % 27.7 % (15.3-44.8); MCV 86.6 fL (80-100); MPV 6.8 fL (7.6-11.3); RBC Red Blood Cell Count 4.23 M/uL (3.86-4.86)
[2022-09-29 22:10] LABS: Potassium 3.6 mmol/L (3.5-5.1); Troponin High Sensitivity 8.1 pg/mL (<58.9)
[2022-09-29 22:15] LABS: SARS-COV-2 RT PCR NEGATIVE (NEGATIVE)
--- NOTE | 2022-09-29 22:25 | ER ---
Nurse's Notes [facility] Name: Rhea Carballo Age: 67 yrs Sex: Female : 1955 Arrival Date: 09/29/2022 Time: 19:35 Bed 15 Private MD: Diagnosis: Acute bronchitis, unspecified Presentation: 09/29 20:10 Chief complaint: Patient states: she has had a cough for 2 weeks with congestion has bb been taking OTC medictions which are not helping she was seen at [place] 2 weeks ago for hypothermia. Coronavirus screen: Client presents with at least one sign or symptom that may indicate coronavirus-19. Ebola Screen: No symptoms or risks identified at this time. Initial Sepsis Screen: Does the patient meet any 2 criteria? No. Patient's initial sepsis screen is negative. Does the patient have a suspected source of infection? No. Patient's initial sepsis screen is negative. Risk Assessment: Do you want to hurt yourself or someone else? Patient reports no desire to harm self or others. Onset of symptoms was August 2022. 20:10 Method Of Arrival: Ambulatory bb 20:10 Acuity: МАРИНА 3 bb Triage Assessment: 22:38 Respiratory: Reports shortness of breath cough that is Onset: The symptoms/episode kl began/occurred gradually, the patient has mild shortness of breath. Historical: - Allergies: 20:13 HYDROCODONE; bb - Home Meds: 20:13 levothyroxine oral [Active]; bb - PMHx: 20:13 chronic back pain; Depression; GI Bleed; Hypothyroidism; SEROTONIN SYNDROME; bb - Immunization history:: Client reports having NOT received the Covid vaccine. - Social history:: Smoking status: Patient reports the use of cigarette tobacco products. Screenin:28 [facility] ED Fall Risk Assessment (Adult) History of falling in the last 3 months, kl including since admission No falls in past 3 months (0 pts) Confusion or Disorientation No (0 pts) Intoxicated or Sedated No (0 pts) Impaired Gait No (0 pts) Mobility Assist Device Used No (0 pt) Altered Elimination No (0 pt) Score/Fall Risk Level 0 - 2 = Low Risk Oriented to surroundings, Educated pt \T\ family on fall prevention, incl call for assistance when getting out of bed, Hourly rounding (assess needs \T\ fall precautionary measures) done. Abuse screen: Denies threats or abuse. Nutritional screening: No deficits noted. Tuberculosis screening: No symptoms or risk factors identified. Assessment: 20:40 General: Appears in no apparent distress. comfortable, Behavior is calm, cooperative. kl Pain: Denies pain. Neuro: No deficits noted. Cardiovascular: No deficits noted. Rhythm is sinus bradycardia. Respiratory: Airway is patent Respiratory effort is even, unlabored, Breath sounds are clear bilaterally. GI: No deficits noted. No signs and/or symptoms were reported involving the gastrointestinal system. : No deficits noted. No signs and/or symptoms were reported regarding the genitourinary system. EENT: No deficits noted. No signs and/or symptoms were reported regarding the EENT system. Vital Signs: 20:10 BP 166 / 91; Pulse 54; Resp 18 S; Temp 98.1(O); Pulse Ox 100% on R/A; Weight 63.5 kg bb (R); Height 5 ft. 6 in. (167.64 cm) (R); Pain 0/10; 22:27 BP 132 / 80; Pulse 56; Resp 20; Pulse Ox 100% on Nebulizer Mask; kl 20:10 Body Mass Index 22.60 (63.50 kg, 167.64 cm) bb ED Course: 19:35 Patient arrived in ED. as 19:39 Shu Christianson MD is Attending Physician. sd2 20:13 Triage completed. bb 20:13 Arm band placed on Patient placed in an exam room, on a stretcher, on pulse oximetry. bb Family accompanied patient. 21:00 XRAY Chest (1 view) In Process Unspecified. EDMS 22:00 No apparent distress. Resting quietly. Appears to be sleeping. kl 22:28 No provider procedures requiring assistance completed. Patient did not have IV access kl during this emergency room visit. 22:39 Patient has correct armband on for positive identification. kl Administered Medications: 20:35 Drug: predniSONE 60 mg Route: PO; kl 22:28 Follow up: Response: No adverse reaction kl 22:17 Drug: DuoNeb (albuterol 2.5 mg, ipratropium 0.5 mg) (3:1) (2.5 mg - 0.5 mg) 3 ml Route: kl Nebulizer; 22:29 Follow up: Response: No adverse reaction Medication: 22:39 VIS not applicable for this client. kl Outcome: 22:24 Discharge ordered by . sd2 22:38 Discharged to home ambulatory, with friend. 22:38 Condition: stable 22:38 Discharge instructions given to patient, Instructed on discharge instructions, follow up and referral plans. medication usage, Demonstrated understanding of instructions, follow-up care, medications, Prescriptions given X 3. 22:47 Patient left the ED. kl Signatures: Dispatcher [employer] EDMS Shameka Guerra RN RN kl Martinez, Amelia as Ballard, Brenda, RN RN bb Dunlop, Stephanie, MD MD sd2
--- NOTE | 2022-09-29 22:25 | EDPHYS ---
Physician Documentation [facility] Name: Rhea Carballo Age: 67 yrs Sex: Female : 1955 Arrival Date: 09/29/2022 Time: 19:35 Bed 15 Private MD: ED Physician Shu Christianson HPI: 09/29 20:24 This 67 yrs old Female presents to ER via Ambulatory with complaints of Breathing sd2 Difficulty. 20:24 67-year-old female presents with chief complaint of cough and shortness of breath along sd2 with congestion that has been present for the past 2 weeks since she got out of the hospital for hypothermia. She states that she has been fatigued and not wanted to do much since being discharged. Denies any known sick contacts, fever, vomiting or diarrhea. Non-productive cough mostly per patient. Pt unsure if she has a history of COPD but is a smoker.. Historical: - Allergies: 20:13 HYDROCODONE; bb - Home Meds: 20:13 levothyroxine oral [Active]; bb - PMHx: 20:13 chronic back pain; Depression; GI Bleed; Hypothyroidism; SEROTONIN SYNDROME; bb - Immunization history:: Client reports having NOT received the Covid vaccine. - Social history:: Smoking status: Patient reports the use of cigarette tobacco products. ROS: 20:24 Constitutional: Negative for fever, chills, and weight loss, Eyes: Negative for injury, sd2 pain, redness, and discharge. 20:24 Cardiovascular: Negative for chest pain, palpitations, and edema. 20:24 Abdomen/GI: Negative for abdominal pain, nausea, vomiting, diarrhea. MS/Extremity: Negative for injury and deformity, Skin: Negative for injury, rash, and discoloration, Neuro: Negative for headache, numbness and tingling. 20:24 ENT: Positive for nasal discharge, Negative for injury or acute deformity, drainage from ear(s), Teeth pain 20:24 Respiratory: Positive for cough, shortness of breath, Negative for hemoptysis. Exam: 20:24 Constitutional: This is a well developed, well nourished patient who is awake, alert, sd2 and in no acute distress. Head/Face: Normocephalic, atraumatic. Eyes: EOMI, normal conjunctiva bilaterally ENT: Nasal congestion present. No nasal discharge, no septal abnormalities noted. Oropharynx with no redness, swelling, or masses, exudates, or evidence of obstruction, uvula midline. Mucous membranes moist. Chest/axilla: Normal chest wall appearance and motion. Nontender with no deformity. Cardiovascular: Regular rate and rhythm with a normal S1 and S2. No gallops, murmurs, or rubs. 2+ distal pulses. Respiratory: Lungs have equal breath sounds bilaterally, clear to auscultation and percussion. No rales, rhonchi or wheezes noted. No increased work of breathing, no retractions or nasal flaring. Abdomen/GI: Soft, non-tender, with normal bowel sounds. No guarding or rebound. No evidence of tenderness throughout. Skin: Warm, dry with normal turgor. Normal color with no rashes, no lesions, and no evidence of cellulitis. MS/ Extremity: Pulses equal, no cyanosis. Neurovascular intact. Full, normal range of motion. Ambulatory without difficulty. Psych: Awake, alert, with orientation to person, place and time. Behavior, mood, and affect are within normal limits. 21:38 ECG was reviewed by the Attending Physician. Sinus bradycardia, rate 47, no STEMI sd2 criteria Vital Signs: 20:10 BP 166 / 91; Pulse 54; Resp 18 S; Temp 98.1(O); Pulse Ox 100% on R/A; Weight 63.5 kg bb (R); Height 5 ft. 6 in. (167.64 cm) (R); Pain 0/10; 22:27 BP 132 / 80; Pulse 56; Resp 20; Pulse Ox 100% on Nebulizer Mask; kl 20:10 Body Mass Index 22.60 (63.50 kg, 167.64 cm) bb MDM: 20:16 Patient medically screened. sd2 20:24 Differential diagnosis: Differential diagnosis includes but is not limited to: Viral sd2 URI, acute otitis media, acute otitis externa, pneumonia, UTI, COVID, flu, ACS, COPD, herpangina among others. Data reviewed: vital signs, nurses notes. 21:38 Independent interpretation of the following test(s) in the Emergency Department EKG: sd2 See my EKG interpretation above. 22:20 Antibiotic administration: The patient is discharged and will get outpatient sd2 antibiotics, Zithromax. Consideration of Admission/Observation Escalation of care including admission/observation considered. No indication at this time due to stable VS, no respiratory distress or hypoxia. . I considered the following discharge prescriptions or medication management in the emergency department Medications were administered in the Emergency Department. See MAR. Historians other than the Patient: Daughter/Son: . Care significantly affected by the following chronic conditions: Chronic Obstructive Pulmonary Disease, Concern for undiagnosed COPD. Counseling: I had a detailed discussion with the patient and/or guardian regarding: the historical points, exam findings, and any diagnostic results supporting the discharge/admit diagnosis, lab results, radiology results, the need for outpatient follow up, to return to the emergency department if symptoms worsen or persist or if there are any questions or concerns that arise at home. ED course: Labs and imaging reviewed. Labs are grossly within normal clinical limits. Chest x-ray with no acute process. Patient feeling improved after breathing treatment and steroids in the ER. She does have a significant smoking history with no current diagnosis of COPD. I suspect there may be some underlying COPD and possible bronchitis. Therefore, she will be discharged with steroids and antibiotics as well as an albuterol inhaler for home use. She was advised of need to follow-up with her primary care doctor especially since her most recent hospitalization and regarding this current ER visit and her current symptoms. She is comfortable with plan for discharge and outpatient follow-up and verbalizes understanding of strict return precautions.. 09/29 20:24 Order name: CBC with Diff; Complete Time: 21:56 sd2 09/29 20:24 Order name: BMP; Complete Time: 22:16 sd2 09/29 20:24 Order name: Troponin High Sensitivity; Complete Time: 22:16 sd2 09/29 20:24 Order name: BNP; Complete Time: 22:16 sd2 09/29 20:24 Order name: XRAY Chest (1 view); Complete Time: 21:20 sd2 09/29 20:24 Order name: COVID-19/FLU A+B; Complete Time: 22:16 sd2 09/29 20:24 Order name: EKG - Nurse/Tech sd2 Administered Medications: 20:35 Drug: predniSONE 60 mg Route: PO; kl 22:28 Follow up: Response: No adverse reaction kl 22:17 Drug: DuoNeb (albuterol 2.5 mg, ipratropium 0.5 mg) (3:1) (2.5 mg - 0.5 mg) 3 ml Route: kl Nebulizer; 22:29 Follow up: Response: No adverse reaction kl Disposition Summary: 09/29/22 22:24 Discharge Ordered Location: Home sd2 Problem: new sd2 Symptoms: have improved sd2 Condition: Stable sd2 Diagnosis - Acute bronchitis, unspecified sd2 Followup: sd2 - With: Private Physician - When: 2 - 3 days - Reason: Recheck today's complaints, Continuance of care, Re-evaluation by your physician Discharge Instructions: - Discharge Summary Sheet sd2 - Acute Bronchitis, Adult sd2 - Chronic Obstructive Pulmonary Disease sd2 Forms: - Medication Reconciliation Form sd2 - Thank You Letter sd2 - Antibiotic Education sd2 - Prescription Opioid Use sd2 Prescriptions: - albuterol sulfate 90 mcg/actuation Inhalation HFA aerosol inhaler - inhale 2 puff by INHALATION route every 4-6 hours; 1 Inhaler; Refills: 0, sd2 Product Selection Permitted - azithromycin 250 mg Oral tablet - take 2 tablet by ORAL route once daily for 1 day then 1 tablet (250 mg) by oral sd2 route once daily for 4 days; 6 tablet; Refills: 0, Product Selection Permitted - Prednisone 20 mg Oral Tablet - take 2 tablets by ORAL route once daily for 5 days; 10 tablet; Refills: 0, sd2 Product Selection Permitted Signatures: Dispatcher [employer] Shameka Harris, RN Chacha Barakat RN RN bb Dunlop, Stephanie, MD MD sd2
[2022-09-29 23:17] VITALS: TEMP 98.1; O2SAT 100
[2022-09-29 23:18] VITALS: BP 132/80
--- NOTE | 2022-09-30 10:48 | EKG ---
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
== END 2022-09-29 22:47 | disposition home or self-care (01) ==
LOC: ER 19:35
DX: J20.9 Acute bronchitis, unspecified (principal); Z20.822 Contact with and (suspected) exposure to COVID-19; Z72.0 Tobacco use
CPT/HCPCS: 0240U; 36415; 71045; 80048; 83880; 84484; 85025; 93005; 94640; 99285; J7512; J7613; J7644

== ENCOUNTER 2022-10-30 16:15 | Observation (INO) | payer SELFPAY ==
--- OUTSIDE RECORDS SUMMARY | 2022-10-30 16:21 | XMS REPORT | Continuity of Care Document ---
:1955 Author Organization [facility] t Address [address] [place] [address] Care Team Providers Name Role Phone Brandon Mcknight MD Primary Care Physician [phone] KATIANA SANTOS Attending Clinician Unavailable Brandon Mcknight MD Attending Clinician BRANDON MCKNIGHT Attending Clinician Unavailable Halyie Marmolejo LVN Attending Clinician CLAIRE ROJAS Attending Clinician Unavailable Brunilda Araiza DO Attending Clinician Claire Rojas DO Attending Clinician Team, [facility] Attending Clinician UnavailRadha Rausch LMSW Attending Clinician Unavailable CLIFFORD AYOUB Attending Clinician Unavailable PAYTON MEJIA Attending Clinician Unavailable Payton Mejia MD Attending Clinician Therapy, Adc Covid [...] mental - ity of status status 00:00: [address] Upper GI [facility] [place] Colitis Colitis Disease [facility] [place] Melena Melena Disease [facility] 00 [place] Duodenal Duodenal Disease [facility] [place] Hypothyroi Hypothyroi Disease Active [facility] dism [facility] 00 [place] Depression Depression Disease [facility] Medical 00 [place] Noncomplia Noncomplia Disease Active [facility] nce [facility] 00:[facility]: Medical 00 [place] Anemia Anemia Disease [facility] Center Allergies, Adverse Reactions, Alerts Allergy Allergy Status Severity Reaction(s) Onset Inactive Treating Comm ents Source Name Type Date Date Clinician NO KNOWN Allergy Active [facility] S NO KNOWN Drug Active Univers ALLERGIE Class ity of S [facility] Social History Social Habit Start Date Stop Date Quantity Comments Source History of tobacco Cigarette Smoker [facility] History SDOH [facility] Alcohol Comment Medical C enter History SDOH [facility] Alcohol Std Drinks Medica l Center History SDOH [facility] Alcohol Binge Medical [address] Exposure to 2022-02-05 2022-02-15 Not sure University SARS-CoV-2 (event) 00:00:00 14:30:00 [facility] Cigarettes smoked 2022-01-11 2022-01-11 Univers ity of current (pack per 00:00:00 00:00:00 [facility] ) - Reported Branch Alcohol intake 2020-04-20 2020-04-[address] [facility] 00:[facility]:00 00:00:00 non-drinker of Medical Ce nter alcohol (finding) Tobacco use and 2019-06-09 2019-06-[address] [facility] exposure 00:00:00 00:00:00 Medical Center History SDOH 2019-06-09 2019-06-[address] [facility] Alcohol Frequency 00:00:00 00:00:00 [facility] Sex Assigned At [address] [facility] 00:00:00 00:00:00 [facility] Smoking Status Start Date Stop Date Source Smokes tobacco daily 2022-01-11 00:00:00 Univers ity of [facility] Light tobacco smoker 2019-06-09 00:00:00 [facility] Medications Ordered Filled Start Stop Current Ordering Indication Dosage Frequency Signature Comments Components Source Medication Medication Date Date Medication? Clinician (SIG) Name Name levothyroxi Yes [id number] TAKE ONE Univers ne 150 mcg 2-06 TABLET BY ity of tablet 00:00: MOUTH 00 EVERY Medical MORNING Branch lisinopriL Yes [id number] 40mg Take 1 U nivers 40 mg 5-31 tablet by ity of tablet 00:00: mouth 00 daily. Medical Branch busPIRone Yes [id number] 10mg Take 1 Un lou[place] 10 mg 5-31 tablet by ity of tablet 00:00: mouth 2 (two) Medical times Branch daily. lisinopriL Yes [id number] 40mg Take 1 U nivers 40 mg 5-31 tablet by ity of tablet 00:00: mouth [place] 00 daily. Medical Branch busPIRone Yes [id number] 10mg Take 1 Un [place] 10 mg 5-31 tablet by ity of tablet 00:00: mouth 2 (two) Medical times Branch daily. lisinopriL Yes [id number] 40mg Take 1 U nivers 40 mg 5-31 tablet by ity of tablet 00:00: mouth [place] 00 daily. Medical Branch busPIRone Yes [id number] 10mg Take 1 Un [place] 10 mg 5-31 tablet by ity of tablet 00:00: mouth 2 [place] 00 (two) Medical times Branch daily. levothyroxi 2020-09 Yes [id number] 150ug Take 1 Univers ne 150 mcg 1-29 tablet by ity of tablet 00:00: mouth [place] 00 every Medical morning. Branch buPROPion 2020-09 Yes [id number] 150mg Take 1 Univers XL 1-29 tablet by ity of (WELLBUTRIN 00:00: mouth [place] XL) 150 mg 00 daily. Medical 24 hr Branch tablet levothyroxi 2020-09 Yes [id number] 150ug Take 1 Univers ne 150 mcg 1-29 tablet by ity of tablet 00:00: mouth [place] 00 every Medical morning. Branch buPROPion 2020-09 Yes [id number] 150mg Take 1 Univers XL 1-29 tablet by ity of (WELLBUTRIN 00:00: mouth [place] XL) 150 mg 00 daily. Medical 24 hr Branch tablet buPROPion 2020-09 Yes [id number] 150mg Take 1 Univers XL 1-29 tablet by ity of (WELLBUTRIN 00:00: mouth [place] XL) 150 mg 00 daily. Medical 24 hr Branch tablet levothyroxi 2020-09- No [id number] 150ug Take 1 Univers ne 150 mcg -- tablet by ity of tablet 00:00: 00:00 mouth [place] 00 :00 every Medical morning. Branch busPIRone 5 2020-09- No [id number] 5mg Take 1 Univers mg tablet 10-16- tablet by ity of 00:00: 00:00 mouth 2 [place] 00 :00 (two) Medical times Branch daily. lisinopriL 2020-09- No [id number] 20mg Take 1 Univers 20 mg -13 02- tablet by ity of tablet 00:00: 00:00 mouth [place] 00 :00 daily. Medical Branch pantoprazol Yes 40mg Take [address] [facility] [facility] 8[facility] tablet (40 [facility] (PROTONIX) 00:00: mg total) Me dical 40 MG 00 by mouth 2 Center tablet (two) times daily before meals. pantoprazol Yes 40mg Take [address] [facility] [...] Do not take if having loose stools.. levothyroxi Yes 150ug Take [address] [facility] [...] Source Systolic blood 2022-02-15 19:41:00 183 mm[Hg] [facility] Branch Diastolic blood 2022-02-15 19:41:00 101 mm[Hg] [facility] Heart rate 2022-02-15 19:40:00 90 /min [facility] Body height 2022-02-15 19:40:00 170.2 cm [facility] Body weight 2022-02-15 19:40:00 59.875 kg [facility] BMI 2022-02-15 19:40:00 20.67 kg/m2 [facility] Procedures This patient has no known procedures. Plan of Care Planned Activity Planned Date Details Comments Source Future Scheduled 2030-04-18 Screening for malignant [facility] Test 00:00:00 neoplasm of colon Medical Ce nter (procedure) [code = 884609364] Future Scheduled 2030-04-18 Screening [facility] malignant [facility] Test 00:00:00 neoplasm of colon Medical Ce nter (procedure) [code = 729830997] Future Scheduled 2030-04-18 Screening for malignant [facility] Test 00:00:00 neoplasm of colon Medical Ce nter (procedure) [code = 285402800] Future Scheduled 2030-04-18 Screening for malignant [facility] Test 00:00:00 neoplasm of colon Medical Ce nter (procedure) [code = 208213502] Future Scheduled 2022-09-18 FALLS RISK SCREENING [facility] Test 00:00:00 [code = FALLS RISK Medical C enter SCREENING] Future Scheduled 2022-09-18 FALLS RISK SCREENING [facility] Test 00:00:00 [code = FALLS RISK Medical C enter SCREENING] Future Scheduled 2022-05-19 INFLUENZA VACCINE (#1) [facility] 00:00:00 [code = INFLUENZA Medical Ce nter VACCINE (#1)] Future Scheduled 2022-05-19 INFLUENZA VACCINE (#1) [facility] 00:00:00 [code = INFLUENZA Medical Ce nter VACCINE (#1)] Future Scheduled 2021-04-[address] [facility] Test 00:00:00 Counseling and Medical Cente r Screening (12+) [code = Tobacco Cessation Counseling and Screening (12+)] Future Scheduled 2021-04-[address] [facility] Test 00:00:00 Counseling and Medical Cente r Screening (12+) [code = Tobacco Cessation Counseling and Screening (12+)] Future Scheduled 2005 SHINGLES VACCINES ([address] [facility] Test 00:00:00 2) [code = SHINGLES Medical Center VACCINES (1 of 2)] Future Scheduled 2005 SHINGLES VACCINES ([address] [facility] Test 00:00:00 2) [code = SHINGLES Medical Center VACCINES (1 of 2)] Future Scheduled 1974 DTAP/TDAP/TD VACCINES [facility] 00:00:00 (1 - Tdap) [code = Medical C enter DTAP/TDAP/TD VACCINES (1 - Tdap)] Future Scheduled 1974 DTAP/TDAP/TD VACCINES [facility] 00:00:00 (1 - Tdap) [code = Medical C enter DTAP/TDAP/TD VACCINES (1 - Tdap)] Future Scheduled 1973 HEPATITIS C SCREENING [facility] 00:00:00 [code = HEPATITIS C Medical Center SCREENING] Future Scheduled 1973 HEPATITIS C [facility] 00:00:00 [code = HEPATITIS C Medical Center SCREENING] Future Scheduled 1961 PNEUMOCOCCAL 65+ YRS ([address] [facility] Test 00:00:00 - PCV) [code = Medical Cente r PNEUMOCOCCAL 65+ YRS (1 - PCV)] Future Scheduled 1961 PNEUMOCOCCAL 65+ YRS ([address] [facility] Test 00:00:00 - PCV) [code = Medical Cente r PNEUMOCOCCAL 65+ YRS (1 - PCV)] Future Scheduled 1956-02-24 COVID-19 VACCINE (#1[facility] 00:[facility]:00 [code = COVID-[address] VACCINE (#1)] Future Scheduled 1956-02-24 COVID-19 VACCINE (#1) [facility] 00:00:00 [code = COVID-[address] VACCINE (#1)] Future Scheduled 1955 Screening for malignant [facility] Test 00:00:00 neoplasm of breast Medical C enter (procedure) [code = 515507560] Future Scheduled 1955 CT Colonography (combo) [facility] Test 00:00:00 [code = CT Colonography [facility] (combo)] Future Scheduled 1955 DXA SCAN [code = DXA [facility] Test 00:00:00 SCAN] [facility] Future Scheduled 1955 Screening for malignant [facility] Test 00:00:00 neoplasm of colon Medical Ce nter (procedure) [code = 610413492] Future Scheduled 1955 Screening for malignant [facility] Test 00:00:00 neoplasm of colon Medical Ce nter (procedure) [code = 124795283] Future Scheduled 1955 Sigmoidoscopy [code = [facility] 00:[facility]:00 Sigmoidoscopy] Medical Cente r Future Scheduled 1955 Screening for malignant [facility] Test 00:00:00 neoplasm of breast Medical C enter (procedure) [code = 699265798] Future Scheduled 1955 CT Colonography (combo) [facility] Test 00:00:00 [code = CT Colonography [facility] (combo)] Future Scheduled 1955 DXA SCAN [code = DXA [facility] Test 00:00:00 SCAN] [facility] Future Scheduled 1955 Screening for malignant [facility] Test 00:00:00 neoplasm of colon Medical Ce nter (procedure) [code = 661436940] Future Scheduled 1955 Screening for malignant [facility] Test 00:00:00 neoplasm of colon Medical Ce nter (procedure) [code = 672971260] Future Scheduled 1955 Sigmoidoscopy [code = [facility] 00:[facility]:00 Sigmoidoscopy] Medical Cente r Encounters Start End Encounter Admission Attending Care Care Encounter Source Date/Time Date/Time Type Type Clinicians Facility Department ID 2022-04-06 [facility] [id number] [facility] 07[facility]48 [facility] 2021-06-23 Inpatient ER RISHABH SANTOS Gastro [id number] [facility] 01:38:07 KATIANA 2022-10-23 2022-10-23 Twin Mcknight [facility] [id number] Univers 00:00:00 00:00:00 [facility] [id number] it y of [place] [id number] Mark as NATE?BLEA [id number] [facility] [address] MEDICAL OFFICE [facility] 2022-05-24 2022-05-24 Telephone [facility] [id number] Univers 00:00:00 00:00:00 [facility] [id number] it y of [place] [id number] Mark as NATE?BLEA [id number] [address] MEDICAL OFFICE [facility] 2022-02-15 2022-02-15 Outpatient R [facility] [id number] Univers 14:30:00 16:20:37 [facility] 2022-02-15 2022-02-15 Office [facility] [id number] Univers 14:30:00 15:00:00 Visit [facility] [id number] it y of [place] [id number] Mark as NATE?BLEA [id number] [address] OFFICE [facility] 2022-02-15 2022-02-15 Outpatient R [facility] [id number] Univers 14:30:00 14:30:00 [facility] 2022-02-15 2022-02-15 Outpatient R [facility] [id number] Univers 14:30:00 14:30:00 [facility] 2022-02-11 2022-02-11 Letter [facility] [id number] Univers 00:00:00 00:00:00 (Out) [facility] [id number] it y of [place] [id number] Mark as NATE?BLEA [id number] [address] OFFICE [facility] 2022-01-13 2022-01-13 Transition ANGELO Marmolejo 1..840.114 [id number] Univers 00:00:00 00:00:00 of Care Haylie MAURO [id number] ity of [place] 4.2.7.2.686 [facility] [id number] [facility] [address] Branch 2022-01-11 2022-01-12 Inpatient X BOB [facility] CITLALY [id number] Univers 02:24:00 14:45:00 CLAIRE edgar [facility] 2022-01-11 2022-01-12 Hospital Brunilda Araiza [facility] 1.2.84 0.114 [id number] Univers 02:24:00 14:45:00 Encounter Claire Rojas [id number] ity [facility] [id number] [id number] [facility] 080 Branch 2022-01-11 2022-01-12 Inpatient X BOB [facility] CITLALY [id number] Univers 02:24:00 14:45:00 CLAIRE [facility] 2021-09-08 2021-09-08 Telephone Team, [facility] KULWINDER 1.2.840.114 [id number] Univers 00:00:00 00:00:00 [facility] [id number] it y of [facility] [id number] [place] [id number] [facility] [address] 2021-08-16 2021-08-16 Outpatient Maris MCKNIGHT [facility] [id number] Univers 16:15:00 16:34:05 BRANDON [facility] 2021-08-16 2021-08-16 Office Amairani [facility] 1.2.840.114 [id number] Univers 16:13:41 16:28:41 Visit [facility] [id number] it y of Eulogio QUINTERO [id number] Mark as NATE?BLEA [id number] [address] MEDICAL OFFICE BUILDING 2021-08-16 2021-08-16 Outpatient Maris MCKNIGHT [facility] [id number] Univers 16:15:00 16:15:00 BRANDON hernández [facility] 2021-08-09 2021-08-09 Outpatient Maris MCKNIGHT [facility] [id number] Univers 16:00:00 16:00:00 BRANDON [facility] 2021-06-11 2021-06-11 Case Angelo Strange 1.2.840.114 [id number] Univers 00:00:00 00:00:00 Management Radha Mauro [id number] [place]2.[place] [id number] [facility] [address] 2021-05-07 2021-05-07 Outpatient Maris MCKNIGHT [facility] [id number] Univers 14:00:00 14:00:00 BRANDON hernández [facility] 2021-04-30 2021-04-30 Outpatient R ANITRA [facility] [id number] Univers 14:30:00 14:30:00 WONDIFUL ity o f [facility] 2021-04-12 2021-04-12 [facility] [id number] Univers 09:00:00 09:00:00 WONDIFUL ity o f [facility] 2021-04-05 2021-04-05 [facility] [id number] Univers 17:00:00 17:00:00 PAYTON [facility] 2021-04-05 2021-04-05 [facility] 1.2.840.114 [id number] Univers 12:28:59 12:48:59 Care [facility] [id number] it y of [place] [id number] Mark as Professio [id number] [address] Office Building One 2021-01-14 2021-01-14 Nurse Therapy, Adc Covid Infusion [facility] 1.2.840.114 [id number] Univers 15:04:48 15:34:48 Visit Toney [place] 350.1.13.10 ity of [place] 4[place]2.686 [place] [id number] [facility] [address] 2021-01-14 2021-01-14 Outpatient Maris DIEGO [facility] [id number] Univers 15:00:00 15:00:00 TONEY hernández [facility] 2021-01-12 2021-01-12 Emergency Jose G [facility] 1.2.840.114 [id number] Univers 18:42:00 20:16:00 Brunilda Quintero 350.1.13.10 ity [facility] [id number] [facility] [id number] [address] 2021-01-12 2021-01-12 Emergency X [facility] ERT [id number] Univers 18:42:00 18:42:00 ity [facility] 2019-11-13 2019-11-13 Emergency X [facility] ERT [id number] Univers 12:50:48 15:36:00 [facility] 2019-11-13 2019-11-13 Emergency [facility] [id number] Univers 12:50:48 15:36:00 [place] [id number] i ty [facility] [id number] [facility] [id number] [address] 2019-11-13 2019-11-13 Emergency X [facility] ERT [id number] Univers 12:50:48 [facility]50:[facility] Test Description Test Time Test Comments Results Result Sour e Comments TISSUE EXAM 2020-04-21 Surgical Pathology Report 16:49:00 Case: [id number] Authorizing Provider: Felix Banks MD Collected: 04/18/2020 02:34 PM Ordering Location: [address] Received: 04/20/2020 08:22 AM Service Pathologist: [...] see comment Signing Pathologist Direct Phone Line: [phone] y signed by Keyona Collado MD on 04/21/2020 at 4:49 PMSpecimen C. The features are nonspecific and may represent reflux associated changes in the appropriate clinical and endoscopic setting.08406 x3, 71315Bmtp deficiency anemia.A. DuodenumB. Gastric biopsyC. Esophagus biopsy [...] evaluated Immunohistochemistry technical testing was performed at [facility], Pathology Laboratory where it was developed [...] GFR IS NOT APPLICABLE FOR DIALYSIS PATIENTS. Water Main Installer Helper ID - PIAYA LCBC (HEMOGRAM ONLY)2020-04-19 05:45:00 [...] WBC 0-0 (BEAKER) (test code = 413) [id number] 05:41:00 Test Item Value Reference Range Interpretation Comments CORTISOL, TOTAL (BEAKER) (test code 7.1 ug/dL 3.7-19.4 = 2755) Water Main Installer Helper ID - PIAYA LBASIC METABOLIC [id number] 04:01:00 Test Item Value Reference Range Interpretation [...] S NOT APPLICABLE FOR DIALYSIS PATIEN TS. Water Main Installer Helper ID - EDASIHEMOGLOBIN AND [id number] 03:00:00 Test Item Value Reference Range Interpretation Comments HEMOGLOBIN (BEAKER) (test code = 7.7 GM/DL 11.2-15.7 L 410) HEMATOCRIT (BEAKER) (test code = 25.7 % 34.1-44.9 L 411) Water Main Installer Helper ID - [id number] (HEMOGRAM ONLY)2020-04-18 03:00:00 Test [...] 0-0 (BEAKER) (test code = 413) SARS-COV2/RT-PCR ([facility])2020-04-17 14:53:00 Test Item Value Reference Range Interpretation Comments SARS-COV2/RT-PCR (test Negative Not Detected, Negative, code = 6646656) See external report for linked test SARS-COV-2 PERFORMING LAB [facility] (test code = 3300341) Negative result for this test determines that [...] of the Act.Fact Sheet for Healthcare Prov iders:https://www.[employer]/sites/default/files/product/documents/Fact_Sheet_HC _Fogpikojt_Ipil_MFZE-UmF-6.pdfFact Sheet for Healthcare Patients:https://www.Evergram/sites/default/files/product/docume nts/Pryn_Thxkj_Cuvfcfzg_Lezy_ZFCX-CbZ-0.pdfPerforming Laboratory:[place] [address], [place] [address]IA, BRAIN, WITHOUT [id number] 11:46:00FINAL REPORT CT, BRAIN, WITHOUT CONTRAST INDICATION: [...] MDReport Verified Date/Time: 04/17/2020 11:46:51 Reading Location: [facility] C013V Neuro Reading Room TROPOGRETCHEN [id number] 10:30:00 Test Item Value Reference Range Interpretation [...] failure, acidosis, acute neurological disease, and persistent tachyarrhythmia.Water Main Installer Helper ID - [id number] 10:24:00 Test Item Value Reference Range Interpretation Comments LIPASE (BEAKER) (test code = 749) 30 U/L 8-78 Water Main Installer Helper ID - NTPCOMPREHENSIVE METABOLIC [id number] 10:17:00 Test Item Value Reference Range Interpretation [...] S NOT APPLICABLE FOR DIALYSIS PATIEN TS. Water Main Installer Helper ID - [id number] 09:59:00 Test Item Value Reference Range Interpretation Comments FERRITIN (BEAKER) (test code = 361) < ng/mL 5.00-275.00 L Water Main Installer Helper ID - NTPTSH/FREE T4 IF [id number] 09:50:00 Test Item Value Reference Range Interpretation Comments THYROID STIMULATING HORMONE 4.140 uIU/mL 0.350-4.940 (BEAKER) (test code = 772) Water Main Installer Helper ID - NTPVITAMIN B12 AND [id number] 09:50:00 Test Item Value Reference Range Interpretation Comments VITAMIN B12 (BEAKER) (test code = 332 pg/mL 213-816 774) FOLATE (BEAKER) (test code = 362) 6.20 ng/mL >=7.00 L Water Main Installer Helper ID - NTPCBC W/PLT COUNT & AUTO [id number] 09:28:00 Test Item Value Reference Range Interpretation [...] % 20-55 L (test code = 2590) Water Main Installer Helper ID - NTPPROTHROMBIN [id number] 09:10:00 Test Item Value Reference Range Interpretation [...] mechanical heart valves.CBC W/PLT COUNT & AUTO [id number] 07:04:00 Test Item Value Reference Range Interpretation [...] (BEAKER) (test code = 2801) BASIC METABOLIC [id number] 06:54:00 Test Item Value Reference Range Interpretation [...] APPLICABLE FOR DIALYSIS PATIEN TS. HEMOGLOBIN AND [id number] 23:13:00 Test Item Value Reference Range Interpretation Comments HEMOGLOBIN (BEAKER) (test code = 7.8 GM/DL 11.2-15.7 L 410) HEMATOCRIT (BEAKER) (test code = 25.1 % 34.1-44.9 L 411) HEMOGLOBIN AND [id number] 18:29:00 Test Item Value Reference Range Interpretation Comments HEMOGLOBIN (BEAKER) (test code = 7.6 GM/DL 11.2-15.7 L 410) HEMATOCRIT (BEAKER) (test code = 24.4 % 34.1-44.9 L 411) HEMOGLOBIN AND [id number] 09:57:00 Test Item Value Reference Range Interpretation Comments HEMOGLOBIN (BEAKER) (test code = 7.2 GM/DL 11.2-15.7 L 410) HEMATOCRIT (BEAKER) (test code = 23.2 % 34.1-44.9 L 411) [id number] 05:50:00 Test Item Value Reference Range Interpretation Comments PHOSPHORUS (BEAKER) (test code = 2.9 mg/dL 2.3-4.7 604) [id number] 05:50:00 Test Item Value Reference Range Interpretation Comments MAGNESIUM (BEAKER) (test code = 2.0 mg/dL 1.6-2.6 627) BASIC METABOLIC [id number] 05:50:00 Test Item Value Reference Range Interpretation [...] APPLICABLE FOR DIALYSIS PATIEN TS. HEPATIC FUNCTION [id number] 05:50:00 Test Item Value Reference Range Interpretation [...] 6-55 347) CBC W/PLT COUNT & AUTO [id number] 05:40:00 Test Item Value Reference Range Interpretation [...] PERCENT (BEAKER) (test code = 2801) PROTHROMBIN [id number] 05:29:00 Test Item Value Reference Range Interpretation [...] wiht mechanical heart valves.RAD, ABDOMEN/KUB, 1 VIEW [id number] 02:43:00Reason for exam:->bloatingShould this be performed at [...] Verified Date/Time: 06/16/2019 02:43:11 RAPID INFLUENZA A&B [id number] 01:49:00 Test Item Value Reference Range Interpretation Comments RAPID INFLUENZA A AG (BEAKER) Negative Negative, Inconclusive (test code = 1622) RAPID INFLUENZA B AG (BEAKER) Negative Negative, Inconclusive (test code = 1623) RAD, CHEST, 1 VIEW, NON [id number] 01:08:00Reason for exam:->coughShould this be performed at the bedside?->YesFINAL REPORT Chest, 1 view. History: Cough Comparison: None available. Findings: The cardiomediastinal silhouette and pulmonary vasculature are within normal limits for a portable exam. The lungs are clear without evidence of consolidation or effusion. The soft tissues and osseousstructures are intact. IMPRESSION: No acute cardiopulmonary abnormality. Signed: Mendel Barragan Verified Date/Time: 06/16/2019 01:08:45 BLOOD [id number] 08:00:00 Test Item Value Reference Range Interpretation Comments CULTURE (BEAKER) (test No growth in 5 days code = 1095) BLOOD [id number] 20:01:00 Test Item Value Reference Range Interpretation Comments CULTURE (BEAKER) (test No growth in 5 days code = 1095) TISSUE [id number] 12:58:00Surgical Pathology Report Case: [id number] Authorizing Provider: Len Waggoner, Collected: 06/10/2019 1111 Ordering Location: [place] [address] ICU Received: 06/10/2019 160 Pathologist: Fernando Plascencia MD Specimens: A) - [...] DYSPLASIA/ MALIGNANCY Signing Pathologist Direct Phone Line: [phone] signed by Fernando Plascencia MD on 06/12/2019 at 12:58 PMB. Detached/ loosely adherent refractile foreign material is seen in the biopsy, likely representing pill fragments. Clinical and endoscopic correlation is recommended.[id number]. Specimen is received in formalin labeled "biopsy gastric" and consists of three fragmentsof hyde-pink soft tissue measuring 0.2 cm each. The specimen is submitted entirely in cassette A1. B.Specimen is received in formalin labeled "biops gastric esophagus" and consists of multiple fragments of hyde-pink soft tissue measuring less than 0.1 cm to 0.2 cm in greatest dimension. The specimen issubmitted entirely in cassette B1. WA/plPerformed.The interpretation of this case included the use of immunohistochemistry or special stains.Control Slides Examined: In- house known positive controls were evaluated along with the test tissue. These control slides run alongside of the patients sample show appropriate staining. Internal positive and negative controls when available are evaluated Immunohi stochemistry technical testing was performed at [facility], Pathology Laboratory where it was developed [...] to perform high complexity clinical laboratory testing.POCT-GLUCOSE [id number] 11:45:00 Test Item Value Reference Range Interpretation Comments POC-GLUCOSE METER 85 mg/dL 70-110 TESTED AT [place] [address] ([facility]) (test code = [facility] [address] 1538) T4, [id number] 08:58:00 Test Item Value Reference Range Interpretation Comments FREE T4 ([facility]) (test code = 655) 0.58 ng/dL 0.70-1.48 L POCT-GLUCOSE [id number] 08:02:00 Test Item Value Reference Range Interpretation Comments POC-GLUCOSE METER 91 mg/dL 70-110 TESTED AT [place] [address] ([facility]) (test code = [facility] [address] 1538) TSH/FREE T4 IF [id number] 06:57:00 Test Item Value Reference Range Interpretation [...] WBC 0-0 (BEAKER) (test code = 413) [id number] 06:42:00 Test Item Value Reference Range Interpretation Comments PHOSPHORUS (BEAKER) (test code = 2.7 mg/dL 2.3-4.7 604) [id number] 06:42:00 Test Item Value Reference Range Interpretation Comments MAGNESIUM (BEAKER) (test code = 2.0 mg/dL 1.6-2.6 627) COMPREHENSIVE METABOLIC [id number] 06:42:00 Test Item Value Reference Range Interpretation [...] NOT APPLICABLE FOR DIALYSIS PATIEN TS. POCT-GLUCOSE [id number] 23:02:00 Test Item Value Reference Range Interpretation Comments POC-GLUCOSE METER 113 mg/dL 70-110 H TESTED AT [facility] 6720 (BEAKER) (test code = AUDI Pollock [facility] 153) [address] T3, [id number] 18:30:00 Test Item Value Reference Range Interpretation Comments T3 FREE (BEAKER) < pg/mL 1.71-3.71 L Testing per formed at [facility] (test code = 908) [facility] [address], [place] [address] [id number] 18:30:00 Test Item Value Reference Range Interpretation Comments T3 TOTAL (BEAKER) 27 ng/dL 48-159 L Testing pe rformed at (test code = 656) [facility] [place], [address] [facility], [place] [address] POCT-GLUCOSE [id number] 18:14:00 Test Item Value Reference Range Interpretation Comments POC-GLUCOSE METER 106 mg/dL 70-110 TESTED AT [place] [address] ([facility]) (test code = [facility] 1538) [address] HEMOGLOBIN AND [id number] 18:09:00 Test Item Value Reference Range Interpretation Comments HEMOGLOBIN ([facility]) (test code = 8.4 GM/DL 11.2-15.7 L 410) HEMATOCRIT ([facility]) (test code = 26.4 % 34.1-44.9 L 411) POCT-GLUCOSE [id number] 12:28:00 Test Item Value Reference Range Interpretation Comments POC-GLUCOSE METER 132 mg/dL 70-110 H TESTED AT [place] [address] ([facility]) (test code = [facility] 1538) [address] CORTISOL,60 [id number] 10:34:00 Test Item Value Reference Range Interpretation Comments CORTISOL BASELINE NETWORKED 8.4 mcg/dL ([facility]) (test code = 2307) CORTISOL 30 MINUTE NETWORKED 16.1 mcg/dL ([facility]) (test code = 2308) CORTISOL, 60 MINUTE ([facility]) 18.2 ug/dL (test code = 1805) [...] cortisol level 60 minutes after cosyntropin administration.CORTISOL,30 [id number] 09:35:00 Test Item Value Reference Range Interpretation [...] a study by Stu et al (VIANEY 2000,283(8):1530-45), the ACTH Stimulation Test provides important prognostic [...] serum cortisol level 60 minutes after cosyntropin administration.CORTISOL,[id number] 09:20:00 Test Item Value Reference Range Interpretation [...] a study by Stu et al (VIANEY 2000,283(8):9117-45), the ACTH Stimulation Test provides important prognostic [...] serum cortisol level 60 minutes after cosyntropin administration.[id number] 07:16:00 Test Item Value Reference Range Interpretation Comments MAGNESIUM (BEAKER) (test code = 2.0 mg/dL 1.6-2.6 627) COMPREHENSIVE METABOLIC [id number] 07:16:00 Test Item Value Reference Range Interpretation [...] S NOT APPLICABLE FOR DIALYSIS PATIEN TS. [id number] 07:01:00 Test Item Value Reference Range Interpretation [...] (test code = 2590) VITAMIN B12 AND [id number] 06:14:00 Test Item Value Reference Range Interpretation Comments VITAMIN B12 (BEAKER) (test code = 285 pg/mL 213-816 774) FOLATE (BEAKER) (test code = 362) 6.3 ng/mL >=7.0 L [id number] 06:05:00 Test Item Value Reference Range Interpretation Comments CORTISOL, TOTAL (BEAKER) (test code 3.2 ug/dL 3.7-19.4 L = 2755) HIV-1 ANTIGEN WITH HIV-1/2 [id number] 06:04:00 Test Item Value Reference Range Interpretation Comments HIV-1 ANTIGEN WITH HIV 1\\T\\2 Nonreactive Nonreactive ANTIBODY (2) (BEAKER) (test code = 2586) [id number] 06:03:00 Test Item Value Reference Range Interpretation [...] 0-0 (BEAKER) (test code = 413) RETICULOCYTE [id number] 05:08:00 Test Item Value Reference Range Interpretation Comments RETICULOCYTE COUNT PCT (BEAKER) (test 2.9 % 0.5-1.7 H code = 575) POCT-GLUCOSE [id number] 22:01:00 Test Item Value Reference Range Interpretation Comments POC-GLUCOSE METER 132 mg/dL 70-110 H TESTED AT [facility] 6720 (AKER) (test code = [place] 1538) [address] HEMOGLOBIN AND [id number] 21:02:00 Test Item Value Reference Range Interpretation Comments HEMOGLOBIN (BEAKER) (test code = 8.1 GM/DL 11.2-15.7 L 410) HEMATOCRIT (BEAKER) (test code = 25.5 % 34.1-44.9 L 411) T4, [id number] 11:38:00 Test Item Value Reference Range Interpretation Comments FREE T4 (BEAKER) (test code = 655) 0.46 ng/dL 0.70-1.48 L TSH/FREE T4 IF [id number] 11:00:00 Test Item Value Reference Range Interpretation Comments THYROID STIMULATING HORMONE 34.88 uIU/mL 0.35-4.94 H (BEAKER) (test code = 772) HEMOGLOBIN AND [id number] 10:21:00 Test Item Value Reference Range Interpretation Comments HEMOGLOBIN (BEAKER) (test code = 8.9 GM/DL 11.2-15.7 L 410) HEMATOCRIT (BEAKER) (test code = 27.3 % 34.1-44.9 L 411) [id number] 05:22:00 Test Item Value Reference Range Interpretation Comments PHOSPHORUS (BEAKER) (test code = 2.9 mg/dL 2.3-4.7 604) [id number] 05:22:00 Test Item Value Reference Range Interpretation Comments MAGNESIUM (BEAKER) (test code = 2.0 mg/dL 1.6-2.6 627) COMPREHENSIVE METABOLIC [id number] 05:22:00 Test Item Value Reference Range Interpretation [...] U/L 29-200 code = 380) LACTIC ACID, [id number] 05:09:00 Test Item Value Reference Range Interpretation [...] 0-0 (BEAKER) (test code = 413) POCT-GLUCOSE [id number] 00:51:00 Test Item Value Reference Range Interpretation Comments POC-GLUCOSE METER 88 mg/dL 70-110 TESTED AT [facility] 6720 (BEAKER) (test code = AUDI [place] [id number] 4590) CHLORIDE, RANDOM [id number] 19:35:00 Test Item Value Reference Range Interpretation Comments CHLORIDE URINE (BEAKER) (test code = 80 meq/L 682) Reference Range: No NormalsCREATININE, RANDOM [id number] 19:35:00 Test Item Value Reference Range Interpretation Comments CREATININE URINE (BEAKER) (test 74.8 mg/dL code = 375) Reference Range: No NormalsSODIUM, RANDOM [id number] 19:35:00 Test Item Value Reference Range Interpretation Comments SODIUM URINE (BEAKER) (test code = 97 meq/L 243) Reference Range: No NormalsURINALYSIS W/ REFLEX URINE [id number] 18:59:00 Test Item Value Reference Range Interpretation [...] 517) Rare MUCUS (BEAKER) (test code = 7994) Rare SQUAMOUS EPITHELIAL (BEAKER) (test 1 /HPF code = 516) HYALINE CASTS (BEAKER) (test code = 2 /LPF 514) SOURCE(BEAKER) (test code = 8577) POCT-GLUCOSE [id number] 18:16:00 Test Item Value Reference Range Interpretation Comments POC-GLUCOSE METER 71 mg/dL 70-110 TESTED AT [facility] 67[address] (BEAKER) (test code = [place] [address] 1538) T4, [id number] 18:06:00 Test Item Value Reference Range Interpretation Comments FREE T4 (BEAKER) (test code = 655) < ng/dL 0.70-1.48 L HEPATIC FUNCTION [id number] 17:52:00 Test Item Value Reference Range Interpretation [...] 14 U/L 6-55 347) TSH/FREE T4 IF [id number] 17:49:00 Test Item Value Reference Range Interpretation Comments THYROID STIMULATING HORMONE 125.05 uIU/mL 0.35-4.94 H (BEAKER) (test code = 772) [id number] 16:49:00 Test Item Value Reference Range Interpretation Comments MAGNESIUM (BEAKER) (test code = 1.8 mg/dL 1.6-2.6 627) BASIC METABOLIC [id number] 16:49:00 Test Item Value Reference Range Interpretation [...] S NOT APPLICABLE FOR DIALYSIS PATIEN TS. [id number] 16:41:00 Test Item Value Reference Range Interpretation [...] is 2.5-3.5 for patients wiht mechanical heart valves.[id number] 16:41:00 Test Item Value Reference Range Interpretation [...] code = 413) RAD, ABDOMEN/KUB, 1 VIEW [id number] 16:14:00Reason for exam:->abdominal distentionShould this be performed [...] MDReport Verified Date/Time: 06/09/2019 16:14:10 Reading Location: [address] Reading Room
--- NOTE | 2022-10-30 17:19 | RAD REPORT ---
EXAM DESCRIPTION: RAD - Knee Left 3 View - 10/30/2022 5:04 pm CLINICAL HISTORY: PAIN COMPARISON: No comparisons FINDINGS: No fracture or dislocation seen. No significant joint fluid.
[2022-10-30] MEDS ORDERED: NA CHLORIDE 0.9% 1,000 ML ONE ×2 (17:46→21:20)
[2022-10-30 19:04] LABS: Urine Blood 3+ (Negative); Urine Glucose Negative (Negative); Urine Protein Negative (Negative); Urine pH 5.5 (5.0-7.0)
[2022-10-30 19:06] LABS: Absolute Lymphocytes (CBC) 1.2 K/uL (0.7-4.9); Hematocrit 37.9 % (36.0-45.0); Lymphocytes % 18.3 % (15.3-44.8); MCV 86.1 fL (80-100); MPV 7.3 fL (7.6-11.3); RBC Red Blood Cell Count 4.41 M/uL (3.86-4.86)
[2022-10-30 19:12] LABS: ALT/SGPT 39 U/L (13-56); AST/SGOT 80 U/L (15-37); Albumin 4.1 g/dL (3.4-5.0); Alkaline Phosphatase 102 U/L (45-117); BUN Blood Urea Nitrogen 36 mg/dL (7-18); Bicarbonate 22 mmol/L (21-32); Bilirubin Total 0.3 mg/dL (0.2-1.0); Glomerular Filtration Rate 34 ml/min (=/>90); Glucose Level 82 mg/dL (74-106); Potassium 3.8 mmol/L (3.5-5.1); Protein, Total 8.1 g/dL (6.4-8.2); Sodium Level 139 mmol/L (136-145); Troponin High Sensitivity 10.9 pg/mL (<58.9)
--- NOTE | 2022-10-30 19:29 | EDPHYS ---
Physician Documentation [facility] Name: Rhea Carballo Age: 67 yrs Sex: Female : 1955 Arrival Date: 10/30/2022 Time: 16:22 Bed 26 Private MD: ED Physician Sarwat Foss HPI: 10/30 16:34 This 67 yrs old Female presents to ER via EMS with complaints of fall to left brooke knee, pain. 16:34 The patient presents with decreased range of motion, pain, that is acute. The brooke complaints affect the left knee. Context: The problem was sustained. Historical: - Allergies: 16:27 HYDROCODONE; ph - PMHx: 16:27 chronic back pain; Depression; GI Bleed; Hypothyroidism; SEROTONIN SYNDROME; ph - Immunization history:: Adult Immunizations unknown. - Social history:: Smoking status: Patient reports the use of cigarette tobacco products, smokes one-half pack cigarettes per day. ROS: 16:42 Constitutional: Negative for fever, chills, and weight loss, Eyes: Negative for injury, brooke pain, redness, and discharge, ENT: Negative for injury, pain, and discharge, Neck: Negative for injury, pain, and swelling, Cardiovascular: Negative for chest pain, palpitations, and edema, Respiratory: Negative for shortness of breath, cough, wheezing, and pleuritic chest pain, Abdomen/GI: Negative for abdominal pain, nausea, vomiting, diarrhea, and constipation, Back: Negative for injury and pain, : Negative for injury, bleeding, discharge, and swelling, Skin: Negative for injury, rash, and discoloration, Neuro: Negative for headache, weakness, numbness, tingling, and seizure, Psych: Negative for depression, anxiety, suicide ideation, homicidal ideation, and hallucinations, Allergy/Immunology: Negative for hives, rash, and allergies, Endocrine: Negative for neck swelling, polydipsia, polyuria, polyphagia, and marked weight changes, Hematologic/Lymphatic: Negative for swollen nodes, abnormal bleeding, and unusual bruising. 16:42 MS/extremity: Positive for decreased range of motion, pain, of the left knee. Exam: 16:42 Constitutional: This is a well developed, well nourished patient who is awake, alert, brooke and in no acute distress. Head/Face: Normocephalic, atraumatic. Eyes: Pupils equal round and reactive to light, extra-ocular motions intact. Lids and lashes normal. Conjunctiva and sclera are non-icteric and not injected. Cornea within normal limits. Periorbital areas with no swelling, redness, or edema. ENT: Nares patent. No nasal discharge, no septal abnormalities noted. Tympanic membranes are normal and external auditory canals are clear. Oropharynx with no redness, swelling, or masses, exudates, or evidence of obstruction, uvula midline. Mucous membranes moist. Neck: Trachea midline, no thyromegaly or masses palpated, and no cervical lymphadenopathy. Supple, full range of motion without nuchal rigidity, or vertebral point tenderness. No Meningismus. Chest/axilla: Normal chest wall appearance and motion. Nontender with no deformity. No lesions are appreciated. Cardiovascular: Regular rate and rhythm with a normal S1 and S2. No gallops, murmurs, or rubs. Normal PMI, no JVD. No pulse deficits. Respiratory: Lungs have equal breath sounds bilaterally, clear to auscultation and percussion. No rales, rhonchi or wheezes noted. No increased work of breathing, no retractions or nasal flaring. Abdomen/GI: Soft, non-tender, with normal bowel sounds. No distension or tympany. No guarding or rebound. No evidence of tenderness throughout. Back: No spinal tenderness. No costovertebral tenderness. Full range of motion. Skin: Warm, dry with normal turgor. Normal color with no rashes, no lesions, and no evidence of cellulitis. Neuro: Awake and alert, GCS 15, oriented to person, place, time, and situation. Cranial nerves II-XII grossly intact. Motor strength 5/5 in all extremities. Sensory grossly intact. Cerebellar exam normal. Normal gait. Psych: Awake, alert, with orientation to person, place and time. Behavior, mood, and affect are within normal limits. 16:42 Musculoskeletal/extremity: ROM: full active range of motion, in the left knee, full passive range of motion, Circulation is intact in all extremities. Sensation intact. Compartment Syndrome exam of affected extremity: is normal. DVT Exam: no swelling, no appreciated bluish discoloration, no erythema, no increased warmth, pain, tenderness. 17:38 ECG was reviewed by the Attending Physician. brooke Vital Signs: 16:11 BP 151 / 89; Pulse 41; Resp 18; Pulse Ox 98% on R/A; db 16:22 BP 198 / 80; Pulse 45; Resp 16; Temp 97.7(O); Pulse Ox 100% on R/A; Weight 51.26 kg; ph 17:00 BP 199 / 89; Pulse 70; Resp 18 S; Pulse Ox 100% ; db 18:30 BP 154 / 74; Pulse 52; Resp 16; Pulse Ox 100% on R/A; db MDM: 16:24 Patient medically screened. brooke 16:45 Differential diagnosis: closed fracture, contusion, abrasion, tendonitis. Data [facility] reviewed: vital signs, nurses notes, lab test result(s), EKG, radiologic studies, plain films. Consideration of Admission/Observation Patient was admitted/placed on observation. Escalation of care including admission/observation considered. Test considered but Not performed: CT: ct head not needed and not done. Care significantly affected by the following chronic conditions: back pain , depression, gi bleed. 10/30 16:33 Order name: CBC with Diff [facility] 10/30 16:33 Order name: Comprehensive Metabolic Panel [facility] 10/30 16:33 Order name: Troponin High Sensitivity [facility] 10/30 16:33 Order name: Asprin [facility] 10/30 16:33 Order name: Tylenol Level [facility] 10/30 17:58 Order name: UDS [facility] 10/30 19:03 Order name: Salicylates Level; Complete Time: 19:04 EDPR 10/30 19:05 Order name: Urine Dipstick-Ancillary; Complete Time: 19:16 EDPR 10/30 19:06 Order name: CBC with Automated Diff; Complete Time: 19:16 EDPR 10/30 19:13 Order name: Comprehensive Metabolic Panel; Complete Time: 19:16 EDPR 10/30 19:13 Order name: Troponin High Sensitivity; Complete Time: 19:16 EDPR 10/30 19:13 Order name: Acetaminophen Level; Complete Time: 19:16 EDPR 10/30 19:32 Order name: CK [facility] 10/30 19:34 Order name: Urine Drug Screen; Complete Time: 19:37 EDPR 10/30 16:33 Order name: Knee Left 3 View XRAY [facility] 10/30 17:19 Order name: RAD; Complete Time: 18:20 EDPR 10/30 19:29 Order name: CT Stone Protocol [facility] 10/30 19:38 Order name: SARS RAPID [facility] 10/30 20:03 Order name: SARS-COV-2 Antigen Rapid; Complete Time: 20:21 EDMS 10/30 20:32 Order name: Creatine Phosphokinase; Complete Time: 19:39 EDMS 10/31 07:23 Order name: CBC with Automated Diff; Complete Time: 19:39 EDMS 10/31 07:48 Order name: Basic Metabolic Panel; Complete Time: 19:39 EDMS 10/31 07:48 Order name: Phosphorus; Complete Time: 19:39 EDMS 10/31 07:48 Order name: Creatine Phosphokinase; Complete Time: 19:39 EDMS 10/31 07:48 Order name: Magnesium; Complete Time: 19:39 EDMS 11/01 03:02 Order name: CBC with Automated Diff EDPR 11/01 03:40 Order name: Basic Metabolic Panel EDPR 11/01 03:40 Order name: Creatine Phosphokinase EDPR 11/01 03:40 Order name: Thyroid Stimulating Hormone EDPR 11/01 03:53 Order name: T4 Free [facility] 10/30 16:33 Order name: EKG; Complete Time: 16:34 [facility] 10/30 16:33 Order name: EKG - Nurse/Tech; Complete Time: 18:12 [facility] 10/30 16:33 Order name: Urine Dipstick-Ancillary (obtain specimen); Complete Time: 19:04 [facility] 10/30 19:29 Order name: CT Head Brain wo Cont [facility] 10/30 20:19 Order name: CT; Complete Time: 20:21 EDPR 10/30 20:20 Order name: CT; Complete Time: 20:21 EDMS EC:38 Rate is 47 beats/min. Rhythm is regular. QRS [place] is Normal. [place] interval is normal. QRS brooke interval is normal. QT interval is normal. No Q waves. T waves are Normal. No ST changes noted. Clinical impression: LVH and Sinus bradycardia. Interpreted by me. Reviewed by me. Administered Medications: 17:00 Drug: NS 0.9% 1000 ml Route: IV; Rate: 1 bolus; Site: right antecubital; db 21:24 Drug: Pepcid (famotidine) 20 mg Route: IVP; Site: right forearm; ke1 22:00 Follow up: Response: No adverse reaction ke1 21:25 Drug: NS 0.9% 1000 ml Route: IV; Rate: 125 ml/hr; Site: right forearm; ke1 Disposition Summary: 10/30/22 19:31 Hospitalization Ordered Hospitalization Status: Observation brooke Provider: Napoleon Oneil cha Condition: Fair(10/30/22 19:31) brooke Problem: new(10/30/22 19:31) brooke Symptoms: have improved(10/30/22 19:31) brooke Bed/Room Type: Standard [facility] Location: [facility] ER HOLD(10/30/22 19:53) Room Assignment: ERHOLD-(10/30/22 19:53) Diagnosis - Altered mental status, unspecified brooke - Dehydration brooke - Tobacco abuse counseling(10/30/22 19:31) brooke - Tobacco use(10/30/22 19:31) brooke - Hematuria, unspecified brooke - Acute kidney failure, unspecified - on chronic brooke - Adverse effect of amphetamines brooke - 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 brooke - Rhabdomyolysis brooke Forms: - Medication Reconciliation Form brooke - SBAR form brooke Signatures: Dispatcher [employer] EDMS Nancy Jean RN RN mw Anderson, Corey, MD MD cha Hall, Patricia, RN RN ph Ebrottie, Kouassi, RN RN ke1 Danyell Buckner RN RN db Brown, Sophia, PA-C PADeisy sb4 Corrections: (The following items were deleted from the chart) 19:29 19:29 Home brooke brooke 19:29 19:29 new brooke brooke 19:29 19:29 have improved brooke [facility] 19:29 19:29 Stable brooke brooke 19:29 19:29 Adjustment disorder with depressed mood brooke brooke 19:29 19:29 Fall on same level, unspecified brooke brooke 19:29 19:29 Contusion of left knee brooke [facility] 19:29 19:29 Tobacco abuse counseling brooke [facility] 19:29 19:29 Tobacco use brooke [facility] 19:29 19:29 Bradycardia, unspecified brooke brooke 19:29 19:29 Unspecified kidney failure brooke [facility] 19:53 19:31 Telemetry/MedSurg (observation) [facility] 19:53 19:31 [facility]
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
[2022-10-30 19:34] LABS: Barbiturates NEGATIVE (NEGATIVE); Benzodiazepines NEGATIVE (NEGATIVE); Cocaine NEGATIVE (NEGATIVE); METHAMPHETAM POSITIVE (NEGATIVE); Methadone NEGATIVE (NEGATIVE); Opiates NEGATIVE (NEGATIVE); Phencyclidine NEGATIVE (NEGATIVE); THC Cannibis NEGATIVE (NEGATIVE)
[2022-10-30 20:03] LABS: SARS-CoV-2 Antigen Rapid Res Negative (Negative)
--- NOTE | 2022-10-30 20:18 | RAD REPORT ---
EXAM DESCRIPTION: CT - Head Brain Wo Cont - 10/30/2022 8:12 pm CLINICAL HISTORY: MENTAL STATUS CHANGE Headache, drowsiness COMPARISON: Head Brain Wo Cont dated 04/23/2020; Head Brain Wo Cont dated 06/09/2019 TECHNIQUE: All CT scans are performed using dose optimization technique as appropriate and may inclu de automated exposure control or mA/KV adjustment according to patient size. FINDINGS: No intracranial hemorrhage, hydrocephalus or extra-axial fluid collection.Mild brain atrop hy.No areas of brain edema or evidence of midline shift. 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 Moderate left maxillary sinus opacification. The left ethmoid air cells also partially opacified. The calvarium is intact. IMPRESSION: No acute intracranial abnormality.
--- NOTE | 2022-10-30 20:19 | RAD REPORT ---
EXAM DESCRIPTION: CT - Stone Protocol - 10/30/2022 8:12 pm CLINICAL HISTORY: Flank pain. FLANK PAIN COMPARISON: Stone Protocol dated 03/10/2020 TECHNIQUE: Axial images were obtained without oral or IV contrast. Lack of contrast limits solid org an and vascular assessment. The oxxbh-pv-bcus spans the entirety of the system partially obscuring uppermost abdomen and lung bases. Coronal reformatted images were obtained and reviewed. All CT scans are performed using dose optimization technique as appropriate and may include automated exposure control or mA/KV adjustment according to patient size. FINDINGS: The lower lung kerr are clear. Imaged portions of the liver and spleen show no suspicious findings on non-contrast imaging. The panc reas and adrenal glands are normal. No pathologic lymphadenopathy in the abdomen or pelvis. Bilateral nephrolithiasis noted without hydronephrosis. No bowel obstruction, free air, free fluid or abscess. Normal appendix noted.Sigmoid diverticulosis w ithout diverticulitis. No significant bony abnormality. IMPRESSION: Bilateral nephrolithiasis without hydronephrosis. Sigmoid diverticulosis coli without diverticulitis.
--- NOTE | 2022-10-30 20:33 | P.HP ---
Certification for Inpatient Patient admitted to: Observation With expected LOS: <2 Midnights Patient will require the following post-hospital care: None Practitioner: I am a practitioner with admitting privileges, knowledge of patient current condition, hospital course, and medical plan of care. Services: Services provided to patient in accordance with Admission requirements found in Title 42 Section 412.3 of the Code of Federal Regulations Patient History Date of Service: 10/30/22 Reason for admission: Dehydration, RITA History of Present Illness: Patient is a 67 year old female with known amphetamine abuse, schizoaffective disorder on antipsychotics, history of anemia secondary to GI bleed, history of peptic ulcer disease, and CKD3b who presented to the emergency department via EMS with altered mental status. She was exhibiting some anxious/combative/self- harm behavior so EMS administered ativan. She is very sedated in the ED. She is sleepy but arousable and does answer questions appropriately. Labs are significant for CK 1115, Cr 1.65, BUN 36. Imaging unremarkable. ED provider wishes to admit patient for further management. Allergies iodine Allergy (Unknown, Verified 03/09/21 14:48) UNKNOWN NKDA Allergy (Uncoded 03/09/21 14:48) Unknown Home medications list reviewed: Yes Home Medications: Pantoprazole [Protonix Tab*] 40 mg PO BIDAC 30 Days #60 tab 07/01/20 Levothyroxine Sodium [Synthroid] 1 tab PO DAILY 03/31/22 Benztropine Mesylate [Cogentin] 1 mg PO BEDTIME #30 tab 04/02/22 Buspirone HCl [Buspar] 1 tab PO BID #60 04/02/22 Pantoprazole [Protonix Tab*] 40 mg PO BIDAC #60 tab 04/02/22 risperiDONE [Risperdal 1 mg tab*] 1 mg PO BEDTIME #30 tab 04/02/22 - Past Medical/Surgical History Diabetic: No -: depression -: anxiety -: hypothyroidism -: stomach ulcer -: back pain -: bipolar-schizo effective disorder -: serotonin syndrome -: Endoscopy -: Colonoscopy Psychosocial/ Personal History: Patient has a son. - Family History Family History: Reviewed- Non-Contributory - Social History Smoking Status: Current every day smoker Alcohol use: Yes CD- Drugs: Yes Caffeine use: Yes Place of Residence: Home Review of Systems is unable to be obtained Physical Examination - Physical Exam General: Disheveled, Other (Lethargic, Uncooperative) HEENT: Atraumatic, Sclerae nonicteric Neck: Supple, 2+ carotid pulse no bruit Respiratory: Clear to auscultation bilaterally, Normal air movement Cardiovascular: Regular rate/rhythm, Normal S1 S2 Gastrointestinal: Normal bowel sounds, No tenderness Musculoskeletal: No tenderness Integumentary: No rashes Neurological: Sensation intact, Abnormal affect - Studies Laboratory Data (last 24 hrs) 10/30/22 18:38: Sodium 139, Potassium 3.8, BUN 36 H, Creatinine 1.65 H, Glucose 82, Total Bilirubin 0.3, AST 80 H, ALT 39, Alkaline Phosphatase 102 10/30/22 18:38: WBC 6.50, Hgb 12.7, Hct 37.9, Plt Count 337 Assessment and Plan - Problems (Diagnosis) (1) Rhabdomyolysis Current Visit: Yes Status: Acute Qualifiers: Rhabdomyolysis type: non-traumatic Qualified Code(s): M62.82 - Rhabdomyolysis (2) RITA (acute kidney injury) Current Visit: Yes Status: Acute (3) Chronic kidney disease, stage III (moderate) Current Visit: Yes Status: Chronic Qualifiers: Chronic kidney disease stage 3 subtype: stage 3b (GFR 30-44) Qualified Code(s): N18.32 - Chronic kidney disease, stage 3b (4) Dehydration Current Visit: Yes Status: Acute (5) Schizoaffective disorder Current Visit: Yes Status: Chronic Qualifiers: Schizoaffective disorder type: unspecified Qualified Code(s): F25.9 - Schizoaffective disorder, unspecified (6) Methamphetamine abuse Current Visit: Yes Status: Chronic (7) Tobacco abuse Current Visit: Yes Status: Chronic - Plan Patient is admitted for further management of dehydration, RITA, rhabdo. Continue aggressive IV hydration. Recheck kidney function and CPK in morning. Tobacco and methamphetamine cessation counseling. Monitor and replete electrolytes per protocol. Discharge Plan: Home Plan to discharge in: 24 Hours - Advance Directives Does patient have a Living Will: No Does patient have a Durable POA for Healthcare: No - Code Status/Comfort Care Code Status Assessed: Yes Code Status: Full Code Physician Review: Patient Assessed, Agree with Above Assessment and Plan Critical Care: No Time Spent Managing Pts Care (In Minutes): 50
[2022-10-30] MEDS ORDERED: FAMOTIDINE 20 MG/2 ML VIAL IV ONE (21:20)
[2022-10-30] MEDS ORDERED: ONDANSETRON 4 MG/2 ML VIAL IV PRN (21:45)
[2022-10-30] MEDS: NA CHLORIDE 0.9% 1,000 ML IV SCH (21:45)
[2022-10-30] MEDS ORDERED: NICOTINE 21 MG/PAT TD PRN (21:45)
[2022-10-30] MEDS ORDERED: ACETAMINOPHEN 500 MG TAB PO PRN (21:45)
[2022-10-30] MEDS ORDERED: HYDRALAZINE HCL 20 MG/ML VIAL IV ONE (23:16)
[2022-10-30] MEDS ORDERED: HYDRALAZINE HCL 20 MG/ML VIAL ONE (23:50)
[2022-10-31] MEDS ORDERED: NA CHLORIDE 0.9% 1,000 ML ONE ×4 (02:44→23:29)
[2022-10-31] MEDS: NA CHLORIDE 0.9% 1,000 ML IV SCH ×2 (04:25→11:05)
[2022-10-31 07:22] LABS: Absolute Lymphocytes (CBC) 0.8 K/uL (0.7-4.9); Hematocrit 38.4 % (36.0-45.0); Lymphocytes % 9.7 % (15.3-44.8); MCV 86.5 fL (80-100); MPV 7.4 fL (7.6-11.3); RBC Red Blood Cell Count 4.44 M/uL (3.86-4.86)
[2022-10-31 07:48] LABS: Magnesium 2.2 mg/dL (1.6-2.4); Potassium 3.9 mmol/L (3.5-5.1)
[2022-10-31] MEDS ORDERED: POTASSIUM PHOS IN 0.9 % NACL 15 MMOL/250 ML BAG IV ONE (08:24)
[2022-10-31 14:57] VITALS: BMI 22.0
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
[2022-10-31] MEDS ORDERED: BUSPIRONE HCL 5 MG TABLET PO SCH (21:00)
[2022-10-31] MEDS ORDERED: HOME MED 1 EA UNK (Buspirone Hcl [Buspar] 10 MG Tablet) PO SCH (21:00)
[2022-10-31] MEDS ORDERED: BENZTROPINE 1 MG TAB PO SCH (21:00)
[2022-10-31] MEDS ORDERED: RISPERIDONE 1 MG TABLET PO SCH (21:00)
[2022-11-01] MEDS: NA CHLORIDE 0.9% 1,000 ML IV SCH ×3 (00:19→06:13)
[2022-11-01 02:57] LABS: Absolute Lymphocytes (CBC) 1.3 K/uL (0.7-4.9); Hematocrit 33.6 % (36.0-45.0); Lymphocytes % 20.1 % (15.3-44.8); MCV 85.5 fL (80-100); MPV 7.3 fL (7.6-11.3); RBC Red Blood Cell Count 3.93 M/uL (3.86-4.86)
[2022-11-01 03:38] LABS: Potassium 3.9 mmol/L (3.5-5.1)
[2022-11-01 04:12] VITALS: TEMP 98
[2022-11-01] MEDS ORDERED: LEVOTHYROXINE SOD 0.075 MG TAB ONE (06:05)
[2022-11-01] MEDS ORDERED: NA CHLORIDE 0.9% 1,000 ML ONE (06:15)
[2022-11-01] MEDS ORDERED: LEVOTHYROXINE SOD 0.075 MG TAB PO SCH (06:30)
[2022-11-01] MEDS ORDERED: PANTOPRAZOLE 40MG TABLET PO SCH (07:30)
[2022-11-01 08:16] VITALS: BP 131/68
[2022-11-01] MEDS ORDERED: HOME MED 1 EA UNK (Levothyroxine Sodium [Synthroid] 150 MCG Tablet) PO SCH (09:00)
[2022-11-01] MEDS ORDERED: POTASSIUM CL SA 10 MEQ TAB PO ONE (09:00)
[2022-11-01 09:06] VITALS: O2SAT 100
--- NOTE | 2022-11-01 17:18 | EKG ---
Test Date: 2022-10-30 Test Time: 17:03:05 Card Dealer: HALLE MEASUREMENT RESULTS: Intervals: Rate: 47 OR: 140 QRSD: 104 QT: 522 QTc: 461 [place]: P: 69 OR: 140 QRS: 71 T: 66 INTERPRETIVE STATEMENTS: Marked sinus bradycardia Voltage criteria for left ventricular hypertrophy Nonspecific ST abnormality Abnormal ECG Compared to ECG 09/29/2022 21:20:55 Left ventricular hypertrophy now present ST (T wave) deviation now present Electronically Signed On 11-01-22 17:12:54 STUMPER FELLER by Noel Samuels
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
== END 2022-11-01 09:09 | disposition left against medical advice (07) ==
LOC: ER 16:15 → ERHOLD 20:28
PROVIDERS: ADMIT Internal Medicine; ATTEND Hospitalist
DX: E86.0 Dehydration (principal); N17.9 Acute kidney failure, unspecified; M62.82 Rhabdomyolysis; F25.9 Schizoaffective disorder, unspecified; N18.32 Chronic kidney disease, stage 3b; F15.10 Other stimulant abuse, uncomplicated; Z72.0 Tobacco use; F41.9 Anxiety disorder, unspecified; F55.8 Abuse of other non-psychoactive substances; R31.9 Hematuria, unspecified; Z71.6 Tobacco abuse counseling; R74.8 Abnormal levels of other serum enzymes; E03.9 Hypothyroidism, unspecified; Z91.14 Patient's other noncompliance with medication regimen; Z20.822 Contact with and (suspected) exposure to COVID-19; Z91.09 Other allergy status, other than to drugs and biological substances
CPT/HCPCS: 36415; 70450; 74176; 76377; 80048; 80053; 80307; 81003; 82550; 83735; 84100; 84439; 84443; 84484; 85025; 87811; 93005; G0378; G0480; J0360; J7030